=== PATIENT | female | born 1950 | race Caucasian/White ===

== ENCOUNTER 2016-09-09 18:31 | Inpatient (IN) | payer MEDICARE ==
[~2016-09-09] VITALS: Ht 165.1 cm; Wt 136.3 kg
[~2016-09-09 18:31] MED LIST: AMLO10TA4 PO; BUPR75TA6 PO; ESCI10TA PO; GLIM4TAB2 PO; INSU100V13 SQ; LEVO175T5 PO; LOSA100T6 PO; METF500T4 PO; METO25TA4 PO; OXYB5TAB7 PO; PANT40GR PO; SERT100T8 PO; SITA1TAB11 PO; THYR15TA PO; UBID50TA PO; glyburide; janumet; zoloft
[2016-09-09] MEDS ORDERED: IV NORMAL SALINE 1000ML BAG 1,000 ML IV ONE (18:45)
[2016-09-09] MEDS ORDERED: IPRATRPIUM/ALBUTEROL 0.5/2.5MG 3 ML NEBU. NEB ONE ×2 (18:45→20:15)
--- NOTE | 2016-09-09 19:42 | PHYS DOC ---
Past Medical History Past Medical History: Depression, Diabetes-Type II, Heart Disease, Hypertension , Other Additional Past Medical Histor: "thyroid" Past Surgical History: Other Additional Past Surgical Histo: arthrocopic knee, 2 heart caths Alcohol Use: None Drug Use: None Adult General Chief Complaint Chief Complaint: SHORTNESS OF BREATH HPI HPI 66-year-old female presenting to the emergency department today with shortness of breath. Her shortness breath is been present for approximately 48 hours. Location lungs. Duration intermittent. No alleviating factors. No specific timing present. Worse with exertion. Review of systems is negative for fevers or chills. She denies chest pain or abdominal pain nausea or vomiting. All other review of systems is negative unless otherwise noted in history of present illness. Review of Systems Review of Systems SEE ABOVE. Current Medications Current Medications Current Medications Medications (Trade) Dose Ordered Sig/Nader Start Time Stop Time Status Last Admin Dose Admin Albuterol/ Ipratropium (Duoneb) 3 ml 1X ONCE 09/09/16 20:15 09/09/16 20:16 DC Albuterol/ Ipratropium 3 ml 3 ml 1X ONCE 09/09/16 18:45 09/09/16 18:46 DC 09/09/16 18:47 3 ML Aspirin (Children'S Aspirin) 324 mg 1X ONCE 09/09/16 20:15 09/09/16 20:18 DC Sodium Chloride (Iv Sodium Chloride 0.9% 1000ml Bag) 1,000 ml @ 1,000 mls/hr 1X ONCE 09/09/16 18:45 09/09/16 19:44 DC 09/09/16 19:56 1,000 MLS/HR Allergies Allergies Allergies Coded Allergies Type Severity Reaction Last Updated Verified morphine Allergy Intermediate 10/08/14 Yes lovastatin Allergy Unknown 10/14/14 Yes Physical Exam Physical Exam Constitutional: Well developed, well nourished, . Patient is mildly diaphoretic. She is mildly tachypneic. She is not in extremis. HENT: Normocephalic, atraumatic, bilateral external ears normal, oropharynx moist, no oral exudates, nose normal. [] Eyes: PERRLA, EOMI, conjunctiva normal, no discharge. Neck: Normal range of motion, no tenderness, supple, no stridor. [] Cardiovascular:Heart rate regular rhythm, no murmur [] Lungs & Thorax: Tachypneic with mild wheezing bilaterally. Crackles at the bases of the lungs. Abdomen: Bowel sounds normal, soft, no tenderness, no masses, no pulsatile masses. [] Skin: Warm, dry, no erythema, no rash. Back: No tenderness, no CVA tenderness. [] Extremities: No tenderness, no cyanosis, no clubbing, ROM intact, no edema. Neurologic: Alert and oriented X 3, normal motor function, normal sensory function, no focal deficits noted. Psychologic: Affect normal, judgement normal, mood normal. [] Current Patient Data Vital Signs Vital Signs Date Time Temp Pulse Resp B/P Pulse Ox O2 Delivery O2 Flow Rate FiO2 09/09/16 18:49 96 Nasal Cannula 4.0 09/09/16 18:40 99.6 96 40 159/72 99.6 Lab Values Laboratory Tests Test 09/09/16 19:20 White Blood Count 4.0x10^3/uL (4.0-11.0) Red Blood Count 4.58x10^6/uL (3.50-5.40) Hemoglobin 12.8g/dL (12.0-15.5) Hematocrit 39.3% (36.0-47.0) Mean Corpuscular Volume 86fL (79-100) Mean Corpuscular Hemoglobin 28pg (25-35) Mean Corpuscular Hemoglobin Concent 33g/dL (31-37) Red Cell Distribution Width 14.2% (11.5-14.5) Platelet Count 59x10^3/uL (140-400) L Neutrophils (%) (Auto) 92% (31-73) H Lymphocytes (%) (Auto) 4% (24-48) L Monocytes (%) (Auto) 3% (0-9) Eosinophils (%) (Auto) 1% (0-3) Basophils (%) (Auto) 0% (0-3) Neutrophils # (Auto) 3.7x10^3uL (1.8-7.7) Lymphocytes # (Auto) 0.2x10^3/uL (1.0-4.8) L Monocytes # (Auto) 0.1x10^3/uL (0.0-1.1) Eosinophils # (Auto) 0.1x10^3/uL (0.0-0.7) Basophils # (Auto) 0.0x10^3/uL (0.0-0.2) Segmented Neutrophils % 87% (35-66) H Band Neutrophils % 7% (0-9) Lymphocytes % 3% (24-48) L Monocytes % 2% (0-10) Eosinophils % 1% (0-5) Platelet Estimate Decreased (ADEQUATE) Large Platelets Occ Giant Platelets Sodium Level 134mmol/L (136-145) L Potassium Level 4.2mmol/L (3.5-5.1) Chloride Level 98mmol/L (98-107) Carbon Dioxide Level 21mmol/L (21-32) Anion Gap 15 (6-14) H Blood Urea Nitrogen 31mg/dL (7-20) H Creatinine 1.6mg/dL (0.6-1.0) H Estimated GFR (Cockcroft-Gault) 32.2 Glucose Level 354mg/dL (70-99) H Lactic Acid Level 1.9mmol/L (0.4-2.0) Calcium Level 9.3mg/dL (8.5-10.1) Total Bilirubin 0.7mg/dL (0.2-1.0) Direct Bilirubin 0.4mg/dL (0.0-0.2) H Aspartate Amino Transferase (AST) 96U/L (15-37) H Alanine Aminotransferase (ALT) 83U/L (14-59) H Alkaline Phosphatase 105U/L (46-116) Troponin I Quantitative 0.414ng/mL (0.000-0.055) Total Protein 6.5g/dL (6.4-8.2) Albumin 2.7g/dL (3.4-5.0) L Lipase 274U/L (73-393) Laboratory Tests 09/09/16 19:20 Laboratory Tests 09/09/16 19:20 EKG EKG [] Radiology/Procedures Radiology/Procedures [] Course & Med Decision Making Course & Med Decision Making Pertinent Labs and Imaging studies reviewed. (See chart for details) [] 66-year-old female presenting to the emergency department today with shortness of breath. Patient is afebrile with mildly increased heart rate. Tachypneic saturating 95% on 4 L. Patient does not have oxygen at home. IV established. Blood work sent. White blood cell count with lower end of normal. Hemoglobin normal. Chemistry panel shows acute kidney injury along with elevation in proBNP. Troponin positive. EKG does not meet STEMI criteria. Patient does not have chest pain. Lactic acid normal. Patient was given Lasix, duo nebs, and antibiotics in the emergency department along with aspirin and Lovenox. The patient was subsequent admitted to our hospital for further evaluation workup and care. Cardiology consulted. Pulmonology consult. Dragon Disclaimer Dragon Disclaimer This electronic medical record was generated, in whole or in part, using a voice recognition dictation system. Departure Departure Impression: Primary Impression: Shortness of breath Additional Impressions: Hypoxia NSTEMI (non-ST elevated myocardial infarction) Disposition: 09 ADMITTED INPATIENT Admitting Physician: Elizabeth Martell Condition: STABLE Referrals: MEI MOCK MD (PCP) Patient Instructions: Shortness of Breath Problem Qualifiers NADIA ALCANTARA MD Sep 09, 2016 19:42
[2016-09-09 19:47] LABS: BASO % 0 % (0-3); EOS % 1 % (0-3); HEMATOCRIT 39.3 % (36.0-47.0); HEMOGLOBIN 12.8 g/dL (12.0-15.5); LYMPH # 0.2 x10^3/uL (1.0-4.8); LYMPH % 4 % (24-48); MEAN CORPUSCULAR HEMOGLOBIN 28 pg (25-35); MEAN CORPUSCULAR HGB CONC 33 g/dL (31-37); MEAN CORPUSCULAR VOLUME 86 fL (79-100); MONO % 3 % (0-9); NEUT % 92 % (31-73); PLATELET COUNT 59 x10^3/uL (140-400); RED BLOOD COUNT 4.58 x10^6/uL (3.50-5.40); RED CELL DISTRIBUTION WIDTH 14.2 % (11.5-14.5)
[2016-09-09 19:59] LABS: CALCIUM 9.3 mg/dL (8.5-10.1); CREATININE 1.6 mg/dL (0.6-1.0); GFR 32.2; POTASSIUM 4.2 mmol/L (3.5-5.1)
[2016-09-09 20:05] LABS: ALBUMIN 2.7 g/dL (3.4-5.0); DIRECT BILIRUBIN 0.4 mg/dL (0.0-0.2); TOTAL BILIRUBIN 0.7 mg/dL (0.2-1.0); TOTAL PROTEIN 6.5 g/dL (6.4-8.2)
[2016-09-09 20:14] LABS: BILIRUBIN,URINE NEGATIVE (NEG); GLUCOSE,URINE >=1000 mg/dL (NEG); NITRITE,URINE NEGATIVE (NEG); PH,URINE 5.5; PROTEIN,URINE 100 mg/dL (NEG-TRACE)
[2016-09-09] MEDS ORDERED: ASPIRIN 81 MG TAB.CHEW PO ONE (20:15)
[2016-09-09 20:17] LABS: % EOS 1 % (0-5); PLT ESTIMATE DECREASED (ADEQUATE)
[2016-09-09 20:38] LABS: BACTERIA,URINE MODERATE /HPF (0-FEW); WBC,URINE >40 /HPF (0-4)
[2016-09-09 20:39] LABS: SQUAMOUS EPITHELIAL CELL,UR MOD /LPF
[2016-09-09] MEDS ORDERED: PIPERACILLIN/TAZOBACTAM 3.375 GM in IV NORMAL SALINE 50ML 50 ML IV ONE (20:45)
[2016-09-09] MEDS ORDERED: ONDANSETRON PF 4 MG/2 ML VIAL. IV PRN (20:45)
[2016-09-09] MEDS ORDERED: FUROSEMIDE 40 MG/4 ML VIAL IVP ONE (20:45)
--- NOTE | 2016-09-09 20:56 | ACF ---
Admission Forms Criteria MYOCARDIAL INFARCTION Clinical Indications for Admission to Inpatient Care (Place 'X' for any and all applicable criteria): Admission is indicated for ANY ONE of the following (1)(2)(3)(4): [X]I. Acute VT [ ]II. Contraindications and/or Inappropriate clinical situations for Observational Care in patients with Myocardial Infarction, when ANY ONE of the following is required: [ ]a) Patient with High risk of cardiac embolism (e.g, patients with previous cardiac embolism, LVEF < 40%, age >75 and patients with prosthetic valve) 18 [ ]b) Patient with Moderate risk including DM patient, CAD and patient aged 65-75 18 [ ]c) Patient with any change in cardiac biomarker especially troponin should be managed as high risk in an inpatient setting 19 [ ]d) Physician judgement irrespective of ECG and other diagnostic findings 20 [ ]III.General contraindications and/or Inappropriate clinical situations for Observational Care in patients with Myocardial Infarction, when ANY ONE of the following is required: [ ]a) Prediction of prolongation of LOS based on ANY ONE of the following may be considered as a contraindication for observational care 2, 3, 4, 5, 6, 7, 8, 9, 10, 11 [ ]i) Age > 65 yrs. [ ]ii) Patient arriving by ambulance [ ]iii) Patient with high acuity [ ]iv) Patient requiring vital sign monitoring [ ]v) Patient on IV medication [ ]b) Systolic blood pressures 180mmHg 3,12 [ ]c) Patient with altered mental status including delirium and other alteration of consciousness, (3) [ ]d) Patient whose discharge disposition will be to a prison home or rehabilitation home should not be managed in Emergency Department Observation Unit. CMS rule requires 3 days hospital stay before such placement. 3,13 [ ]e) Patient with failure to thrive due to broad array of etiologies 3 ,16,17 [ ]f) Inability to ambulate 3,14 Extended stay beyond goal length of stay may be needed for (1)(18)(20)(24)(25): [ ]a) Hemodynamic instability, persisting symptoms after intensive medical management, or recurring severe, prolonged symptoms [ ]b) Intravascular procedural complications such as acute vessel closure, stent thrombosis, stent malposition, or vessel dissection (26)(27)(28) [ ]c) Extravascular procedural complications such as retroperitoneal hematoma , pericardial effusion, or cardiac tamponade [ ]d) Entry site complications causing bleeding, hematoma or distal ischemia and requiring ongoing monitoring, surgical repair or surgical thrombectomy(29) [ ]e) Dangerous arrhythmia [ ]f) Complicated percutaneous coronary intervention (e.g., unsuccessful percutaneous coronary intervention or percutaneous coronary intervention of non- [place] vessel) [ ]g) Urgent or emergent surgery for complications of VT (e.g., ventricular rupture, valvular insufficiency) [ ]h) Surgical revascularization via coronary artery bypass graft [ ]i) Heart failure (e.g., pulmonary edema) [ ]j) Unstable pulmonary comorbidities, including COPD or pneumonia (31) [ ]k) Acute renal failure The original [employer] content created by [employer] has been revised. The portions of the content which have been revised are identified through the use of italic text or in bold, and [facility] [employer] has neither reviewed nor approved the modified material. All other unmodified content is copyright [facility] [employer] Please see references footnoted in the original [facility] edition 2016 Admission Criteria Met?: Yes FIONA CROCKER Sep 09, 2016 20:55
[2016-09-09] MEDS: ENOXAPARIN ** NOTE DOSE ** SYRINGE SQ SCH (21:00)
[2016-09-09 22:30] VITALS: BP 95/61
[2016-09-09] MEDS ORDERED: METO100T11 (23:17)
[2016-09-09] MEDS ORDERED: ASPI325T4 (23:17)
[2016-09-09] MEDS ORDERED: INSU300I (23:17)
[2016-09-09] MEDS ORDERED: ROSUVASTATIN CA20 MG (23:17)
[2016-09-09] MEDS ORDERED: MAGN400T22 (23:17)
[2016-09-09] MEDS ORDERED: LOSA1TAB18 (23:17)
[2016-09-09] MEDS ORDERED: OMEP40CA5 (23:17)
[2016-09-09] MEDS ORDERED: INSU100I17 (23:17)
[2016-09-09] MEDS ORDERED: LEVO125T5 (23:17)
[2016-09-10] VITALS (9 sets, daily range): BP systolic 91–135; BP diastolic 45–62
[2016-09-10 05:57] LABS: BASO % 0 % (0-3); EOS % 1 % (0-3); HEMATOCRIT 38.1 % (36.0-47.0); HEMOGLOBIN 12.6 g/dL (12.0-15.5); LYMPH # 0.4 x10^3/uL (1.0-4.8); LYMPH % 7 % (24-48); MEAN CORPUSCULAR HEMOGLOBIN 28 pg (25-35); MEAN CORPUSCULAR HGB CONC 33 g/dL (31-37); MEAN CORPUSCULAR VOLUME 85 fL (79-100); MONO % 7 % (0-9); NEUT % 86 % (31-73); PLATELET COUNT 56 x10^3/uL (140-400); RED BLOOD COUNT 4.48 x10^6/uL (3.50-5.40); RED CELL DISTRIBUTION WIDTH 14.3 % (11.5-14.5); WHITE BLOOD COUNT 5.3 x10^3/uL (4.0-11.0)
[2016-09-10 06:08] LABS: CREATININE 1.7 mg/dL (0.6-1.0); GFR 30.1; POTASSIUM 4.2 mmol/L (3.5-5.1)
[2016-09-10] MEDS: ACETAMINOPHEN 325 MG TABLET. PO PRN ×2 (07:24→21:33)
[2016-09-10] MEDS: IPRATRPIUM/ALBUTEROL 0.5/2.5MG 3 ML NEBU. NEB SCH ×4 (07:36→19:47)
--- NOTE | 2016-09-10 08:28 | RAD ---
Exam performed: One view chest. Indication: short of breath Date of Service: 09/09/2016 8:38 PM Comparison: 08/26/13. Single AP upright portable view chest findings: Cardiomediastinal silhouette is mildly enlarged, however stable. No acute infiltrates, effusion or pneumothorax is detected. The bony structures are normal. Impression: No acute cardiopulmonary process is detected.
[2016-09-10] MEDS: ENOXAPARIN ** NOTE DOSE ** SYRINGE SQ SCH ×2 (09:00→21:00)
--- NOTE | 2016-09-10 10:27 | PDOC ---
Provider Note Provider Note DYSPNEA DUE TO FEBRILE ILLNESS NORMAL cxr/ V/Q antibiotic ID consult r/o influenza DILLON BOOKER MD Sep 10, 2016 10:27
--- NOTE | 2016-09-10 10:48 | EKG ---
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
--- NOTE | 2016-09-10 10:59 | CONS ---
DATE OF CONSULTATION: ATTENDING PHYSICIAN: Dr. Martell. REASON FOR CONSULTATION: Dyspnea. HISTORY OF PRESENT ILLNESS: The patient is a 66-year-old female, who has history of depression, type 2 diabetes, morbid obesity with a BMI of 48.9. She presented to [facility] with complaint of shortness of breath. She had no cough. The patient states she had history of aortic aneurysm. She states her face was blue. She was placed on oxygen via nasal cannula. Currently, she is requiring 3 liters of oxygen. The patient has some shivering as well, but no reported fever. She has a history of KARENA, for which she is on CPAP. At [facility], a VQ scan was done, which was normal. Chest x-ray was also done which showed no significant CHF. Echocardiogram done yesterday, showed PA pressure of 48, an EF of 55%-60%. I have been asked to see her for further evaluation. She states she does feel better. PAST MEDICAL HISTORY: Significant for history of depression; diabetes; morbid obesity; severe KARENA on CPAP; history of heart disease, details known; history of hypertension and thyroid disease. PAST SURGICAL HISTORY: ____ and previous cardiac catheterization. ALLERGIES: LOVASTATIN AND MORPHINE. MEDICATIONS: Reviewed as listed in the MRAD including DuoNeb and full dose Lovenox. REVIEW OF SYSTEMS: Twelve-point system obtained, pertinent positives discussed in my history of present illness, otherwise noncontributory. All systems that were negative were reviewed as well. SOCIAL HISTORY: Denies any history of tobacco use. PHYSICAL EXAMINATION: GENERAL: She is awake, following commands. VITAL SIGNS: Pulse ox is 97% on 4 liters. She had a T-max of 99.8 and 99.61 was yesterday. HEENT: Sclerae nonicteric. NECK: Supple. LUNGS: Diminished breath sounds. No crackles, no wheezing. CARDIOVASCULAR: Regular. ABDOMEN: Soft, obese. EXTREMITIES: With no pitting edema. LABORATORY DATA: Reviewed. BUN 32, creatinine 1.1. Troponin 0.41. White cell count 5.3, hemoglobin 12.6 and platelets are 56. IMPRESSION: 1. Acute hypoxic respiratory failure, etiology is not so obvious. She has a clear chest x-ray. Echocardiogram with normal ejection fraction. V/Q scan is normal. She does have a fever and thrombocytopenia. I suspect that she may have a viral infection. Needs to rule out any bacteremia. 2. Fever with no obvious source in the lungs. Would recommend ID consult. 3. Acute kidney injury. Could be related dehydration. Lactic acid is normal. 4. Mildly increased troponin level. 5. No significant history of tobacco use. 6. History of obstructive sleep apnea on home CPAP. 7. No evidence of pulmonary embolism by V/Q scan. RECOMMENDATIONS: 1. From a pulmonary standpoint, she does not need full anticoagulation unless Cardiology recommends to continue. (thrombocytopenia) 2. The patient has previous history of stents. I would recommend Cardiology followup and recommendation. 3. Continue with empiric antibiotic. She was initiated on Zosyn. 4. Follow cultures. 5. Consider Infectious Disease consult. 6. Bronchodilators to continue. 7. Home CPAP. 8. Rule out influenza. 9. We will follow along with you. DILLON BOOKER MD DR: YOLI/crys JOB#: [id number] / [id number] TONY
--- NOTE | 2016-09-10 11:12 | EKG ---
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
--- NOTE | 2016-09-10 11:33 | PDOC2 ---
CARDIOLOGY CONSULT NOTE CHEIF COMPLAINT: Shortness of breath Problems: (1) Shortness of breath (2) Hypoxic HPI: 66 yo obese female reports sudden onset of SOB. She also reports left calf pain that is now resolved. Patient was hospitalized at [facility] and underwent a V/Q scan that was normal, and echo showing normal EF and valvular function, and only stage I diastolic dysfunction (filling pressures not commented on). Interestingly, her PA pressures were elevated into the 50's, and in March of last year they had been normal (presumed < 20 mmHg as there was no measurable TR). The patient presented to [facility] relatively tachycardic in the low 100's, hypoxic requiring O2. She also has acute renal dysfunction, thrombocytopenia and mild transaminitis. PMHX: Obesity, DM, KARENA, normal coronaries x 2 caths per patient SOCHX: Never smoker CURRENT MEDS: Current Medications Medications (Trade) Dose Ordered Sig/Nader Start Time Stop Time Status Last Admin Dose Admin Acetaminophen (Tylenol) 650 mg PRN Q6HRS PRN 09/10/16 06:15 09/10/16 07:24 650 MG Albuterol/ Ipratropium (Duoneb) 3 ml RTQID 09/10/16 08:00 09/11/16 07:59 Albuterol/ Ipratropium 3 ml 3 ml 1X ONCE 09/09/16 18:45 09/09/16 18:46 DC 09/09/16 18:47 3 ML Aspirin 324 mg 324 mg 1X ONCE 09/09/16 20:15 09/09/16 20:18 DC 09/09/16 20:57 324 MG Enoxaparin Sodium (Lovenox 150mg Syringe) 130 mg Q12HR 09/09/16 21:00 Enoxaparin Sodium (Lovenox Per Pharmacy Treatment Dosing) 1 each PRN DAILY PRN 09/09/16 20:45 Furosemide (Lasix) 40 mg 1X ONCE 09/09/16 20:45 09/09/16 20:46 DC 09/09/16 20:58 40 MG Ondansetron HCl (Zofran) 4 mg PRN Q8HRS PRN 09/09/16 20:45 09/10/16 20:44 Piperacillin Sod/ Tazobactam Sod/ Sodium Chloride (Zosyn/Iv Sodium Chloride 0.9% 50ml) 50 ml @ 100 mls/hr 1X ONCE 09/09/16 20:45 09/09/16 21:14 DC 09/09/16 20:57 100 MLS/HR Sodium Chloride (Iv Sodium Chloride 0.9% 1000ml Bag) 1,000 ml @ 1,000 mls/hr 1X ONCE 09/09/16 18:45 09/09/16 19:44 DC 09/09/16 19:56 1,000 MLS/HR ALLERGIES: Allergies Coded Allergies Type Severity Reaction Last Updated Verified morphine Allergy Intermediate 10/08/14 Yes lovastatin Allergy Unknown 10/14/14 Yes PHYSICAL EXAM: Vital Signs: Vital Signs Date Time Temp Pulse Resp B/P Pulse Ox O2 Delivery O2 Flow Rate FiO2 09/10/16 11:11 97.6 70 22 111/56 98 Nasal Cannula 4.0 97.6 I & O Intake and Output 09/10/16 07:00 Intake Total 1400 ml Balance 1400 ml Intake Oral 350 ml IV Total 1050 ml # Voids 1 # Bowel Movements 1 DIAGNOSTIC TESTING: Lab Laboratory Tests Test 09/09/16 19:20 09/09/16 20:00 09/10/16 05:00 White Blood Count 4.0x10^3/uL (4.0-11.0) 5.3x10^3/uL (4.0-11.0) Red Blood Count 4.58x10^6/uL (3.50-5.40) 4.48x10^6/uL (3.50-5.40) Hemoglobin 12.8g/dL (12.0-15.5) 12.6g/dL (12.0-15.5) Hematocrit 39.3% (36.0-47.0) 38.1% (36.0-47.0) Mean Corpuscular Volume 86fL (79-100) 85fL (79-100) Mean Corpuscular Hemoglobin 28pg (25-35) 28pg (25-35) Mean Corpuscular Hemoglobin Concent 33g/dL (31-37) 33g/dL (31-37) Red Cell Distribution Width 14.2% (11.5-14.5) 14.3% (11.5-14.5) Platelet Count 59x10^3/uL (140-400) L 56x10^3/uL (140-400) L Neutrophils (%) (Auto) 92% (31-73) H 86% (31-73) H Lymphocytes (%) (Auto) 4% (24-48) L 7% (24-48) L Monocytes (%) (Auto) 3% (0-9) 7% (0-9) Eosinophils (%) (Auto) 1% (0-3) 1% (0-3) Basophils (%) (Auto) 0% (0-3) 0% (0-3) Neutrophils # (Auto) 3.7x10^3uL (1.8-7.7) 4.6x10^3uL (1.8-7.7) Lymphocytes # (Auto) 0.2x10^3/uL (1.0-4.8) L 0.4x10^3/uL (1.0-4.8) L Monocytes # (Auto) 0.1x10^3/uL (0.0-1.1) 0.4x10^3/uL (0.0-1.1) Eosinophils # (Auto) 0.1x10^3/uL (0.0-0.7) 0.0x10^3/uL (0.0-0.7) Basophils # (Auto) 0.0x10^3/uL (0.0-0.2) 0.0x10^3/uL (0.0-0.2) Segmented Neutrophils % 87% (35-66) H Band Neutrophils % 7% (0-9) Lymphocytes % 3% (24-48) L Monocytes % 2% (0-10) Eosinophils % 1% (0-5) Platelet Estimate Decreased (ADEQUATE) Large Platelets Occ Giant Platelets Sodium Level 134mmol/L (136-145) L 136mmol/L (136-145) Potassium Level 4.2mmol/L (3.5-5.1) 4.2mmol/L (3.5-5.1) Chloride Level 98mmol/L (98-107) 99mmol/L (98-107) Carbon Dioxide Level 21mmol/L (21-32) 25mmol/L (21-32) Anion Gap 15 (6-14) H 12 (6-14) Blood Urea Nitrogen 31mg/dL (7-20) H 32mg/dL (7-20) H Creatinine 1.6mg/dL (0.6-1.0) H 1.7mg/dL (0.6-1.0) H Estimated GFR (Cockcroft-Gault) 32.2 30.1 Glucose Level 354mg/dL (70-99) H 338mg/dL (70-99) H Lactic Acid Level 1.9mmol/L (0.4-2.0) Calcium Level 9.3mg/dL (8.5-10.1) 9.0mg/dL (8.5-10.1) Total Bilirubin 0.7mg/dL (0.2-1.0) Direct Bilirubin 0.4mg/dL (0.0-0.2) H Aspartate Amino Transf (AST/SGOT) 96U/L (15-37) H Alkaline Phosphatase 105U/L (46-116) Total Protein 6.5g/dL (6.4-8.2) Albumin 2.7g/dL (3.4-5.0) L Lipase 274U/L (73-393) Urine Collection Type Unknown Urine Color Yellow Urine Clarity Cloudy Urine pH 5.5 Urine Specific [place] >=1.030 Urine Protein 100mg/dL (NEG-TRACE) Urine Glucose (UA) >=1000mg/dL (NEG) Urine Ketones (Stick) 15mg/dL (NEG) Urine Blood Large (NEG) Urine Nitrite Negative (NEG) Urine Bilirubin Negative (NEG) Urine Urobilinogen Dipstick 1.0mg/dL (0.2 mg/dL) Urine Leukocyte Esterase Small (NEG) Urine RBC 1-2/HPF (0-2) Urine WBC >40/HPF (0-4) Urine Squamous Epithelial Cells Mod/LPF Urine Bacteria Moderate/HPF (0-FEW) ASSESSMENT: 1) Hypoxia, tachycardia, newly elevated PA pressures, elevated troponin, elevated BNP 2) Acute kidney injury--possibly pre-renal 3) Mild transaminase elevation with otherwise normal liver synthetic function 4) Thrombocytopenia PLAN: 1) Certainly the constellation in #1 is c/w PE, however, her V/Q was interpreted as normal. I am still suspicious of a PE, so will do LE venous dopplers. Even if negative, I would not abandon PE as a possible etiology. If her renal function improves, would consider CTPE protocol. I would not anticoagulate unless PE is confirmed due to her thrombocytopenia. 2) Agree with pulmonary that a viral process is high in the differential. 3) Despite her elevated BNP, I think the patient needs intravascular volume repletion, and recommend NS at 100 an hour until improvement is seen in the BUN/ Cr. Also encourage PO intake. 4) The elevated troponin is not due to plaque rupture, but rather to hypoxia and tachycardia. If a PE is confirmed this would also explain the Troponin due to RV strain. Anticoagulation and DAPT for a primary cardiac issue are not indicated at this time. 5) Input from Hematology regarding her thrombocytopenia would be appreciated. Possibly due to chronic liver disease vs an acute viral process. Total time face to face and more than half counseling and coordinating care on the unit is 65 minutes. ROS Cardiology Respiratory: shortness of breath improving Cardiovascular: No additional information not addressed in HPI [] Vital Signs Vital Signs Date Time Temp Pulse Resp B/P Pulse Ox O2 Delivery O2 Flow Rate FiO2 09/10/16 11:11 97.6 70 22 111/56 98 Nasal Cannula 4.0 97.6 General Appearance: Alert, Oriented X3, Cooperative Respiratory: Clear to auscultation Heart: No murmurs Extremities: No edema, Other (Left calf warm to touch, no erythema, no Luisa's/ Bobby) YON THOMPSON DO Sep 10, 2016 11:33
[2016-09-10] MEDS ORDERED: LEVO200T5 PO (11:38)
[2016-09-10] MEDS ORDERED: ASPI-482 PO (11:38)
[2016-09-10] MEDS ORDERED: MAGN400T3 PO (11:38)
[2016-09-10] MEDS ORDERED: INSU200I SQ (11:43)
[2016-09-10] MEDS ORDERED: INSU300I SQ (11:43)
[2016-09-10] MEDS ORDERED: METF10002 PO (11:43)
[2016-09-10] MEDS ORDERED: BUPR100T8 PO (11:45)
--- NOTE | 2016-09-10 11:45 | PDOC1 ---
History and Physical Date of Admission Date of Admission DATE: 09/10/16 TIME: 11:44 Identification/Chief Complaint Chief Complaint shortness of breath Source Source: Chart review, Patient History of Present Illness History of Present Illness Ms. Lucas is a 66 yo obese female admitted for sudden onset of SOB. She was seen in [facility] the day before and had dyspnea, was DC after garcia includign VQ scan neg. LEg pain yesterday, Left calf, no pain today she is able to lie supine without dyspnea, and has no new LE edema Recent echo showing normal EF and valvular function, and only stage I diastolic dysfunction Past Medical History Cardiovascular: HTN, Hyperlipidemia Pulmonary: No pertinent hx, Other CENTRAL NERVOUS SYSTEM: Migraine GI: GERD Heme/Onc: No pertinent hx Hepatobiliary: Other Psych: No pertinent hx Musculoskeletal: Osteoarthritis Rheumatologic: No pertinent hx Infectious disease: No pertinent hx Renal/: No pertinent hx, Other Endocrine: Diabetes, Hypothyroidism Past Surgical History Past Surgical History: Cholecystectomy Family History Family History: Alcohol Abuse Social History Smoke: No ALCOHOL: none Drugs: None Current Problem List Problem List Problems Medical Problems: (1) Hypoxia Status: Acute (2) Hypoxic Status: Acute (3) NSTEMI (non-ST elevated myocardial infarction) Status: Acute (4) Shortness of breath Status: Acute Problems: Current Medications Current Medications Current Medications Albuterol/ Ipratropium 3 ml 3 ml 1X ONCE NEB Last administered on 09/09/16 18 :47; Start 09/09/16 at 18:45; Stop 09/09/16 at 18:46; Status DC Sodium Chloride (Iv Sodium Chloride 0.9% 1000ml Bag) 1,000 ml @ 1,000 mls/hr 1X ONCE IV Last administered on 09/09/16 19:56; Start 09/09/16 at 18:45; Stop 09/09/16 at 19:44; Status DC Albuterol/ Ipratropium (Duoneb) 3 ml 1X ONCE NEB Last administered on 21:21; Start 09/09/16 at 20:15; Stop 09/09/16 at 20:16; Status DC Aspirin 324 mg 324 mg 1X ONCE PO Last administered on 09/09/16 20:57; Start 09/09/16 at 20:15; Stop 09/09/16 at 20:18; Status DC Piperacillin Sod/ Tazobactam Sod/ Sodium Chloride (Zosyn/Iv Sodium Chloride 0.9 % 50ml) 50 ml @ 100 mls/hr 1X ONCE IV Last administered on 09/09/16 20:57; Start 09/09/16 at 20:45; Stop 09/09/16 at 21:14; Status DC Furosemide (Lasix) 40 mg 1X ONCE IVP Last administered on 09/09/16 20:58; Start 09/09/16 at 20:45; Stop 09/09/16 at 20:46; Status DC Enoxaparin Sodium (Lovenox Per Pharmacy Treatment Dosing) 1 each PRN DAILY PRN MC SEE COMMENTS; Start 09/09/16 at 20:45 Enoxaparin Sodium (Lovenox 150mg Syringe) 130 mg Q12HR SQ ; Start 09/09/16 at 21 :00 Ondansetron HCl (Zofran) 4 mg PRN Q8HRS PRN IV NAUSEA/VOMITING; Start 09/09/16 at 20:45; Stop 09/10/16 at 20:44 Albuterol/ Ipratropium (Duoneb) 3 ml RTQID NEB ; Start 09/10/16 at 08:00; Stop 09/11/16 at 07:59 Acetaminophen (Tylenol) 650 mg PRN Q6HRS PRN PO MILD PAIN / TEMP Last administered on 09/10/16 07:24; Start 09/10/16 at 06:15 Active Scripts Active Reported Humalog Kwikpen (Insulin Lispro) 200 Unit/1 Ml Insuln.pen 20 Unit SQ TIDWMEALS Toujeo Solostar (Insulin Glargine,Hum.rec.anlog) 300 Unit/1 Ml Insuln.pen 38 Unit SQ HS PRN Metformin Hcl 1,000 Mg Tablet 1 Tab PO BID Levothyroxine Sodium 200 Mcg Tablet 250 Mcg PO DAILYAC Magnesium Oxide 400 Mg Tablet 1 Tab PO BID Aspir 81 (Aspirin) 81 Mg Tablet. 1 Tab PO DAILY Losartan-Hctz 100-12.5 Mg Tab (Losartan/Hydrochlorothiazide) 1 Each Tablet Rosuvastatin Calcium 20 Mg Tablet 20 Mg Metoprolol Succinate ( Xl ) (Metoprolol Succinate) 100 Mg Tab.er.24h 100 Mg Omeprazole 40 Mg Capsule. 40 Mg Bupropion Hcl 75 Mg Tablet 75 Mg PO Escitalopram Oxalate 10 Mg Tablet 20 Mg PO Norvasc (Amlodipine Besylate) 10 Mg Tablet 10 Mg PO DAILY07 Allergies Allergies: Coded Allergies: morphine (Verified Allergy, Intermediate, 10/08/14) lovastatin (Verified Allergy, Unknown, 10/14/14) CAUSES MUSCLE SPASMS ROS General: YES: Fatigue, No: Appetite, Chills, Malaise, Night Sweats, Other PSYCHOLOGICAL ROS: No: Anxiety, Behavioral Disorder, Concentration difficultie , Decreased libido, Depression, Disorientation, Hallucinations, Hostility, Irritablity, Memory difficulties, Mood Swings, Obsessive thoughts, Other, Physical abuse, Sexual abuse, Sleep disturbances, Suicidal ideation Eyes: No Blurry vision, No Decreased vision, No Double vision, No Dry eyes, No Excessive tearing, No Eye Pain, No Itchy Eyes, No Loss of vision, No Other, No Photophobia, No Scotomata, No Uses contacts, No Uses glasses Respiratory: YES: SOB with excertion, Shortness of breath, Tachypnea, No: Cough, Hemoptysis, Orthopnea, Other, Pleuritic Pain, Sputum Changes, Stridor, Wheezing Cardiovascular: No Chest Pain, No Edema, No Lt Headedness, No Orthopnea, No Other, No Palpitations, No Paroxysmal Noc. Dyspnea Gastrointestinal: Yes Nausea, No Abdominal Pain, No Constipation, No Diarrhea, No Hematochezia, No Melena, No Other, No Vomiting Musculoskeletal: Yes Joint Pain, Yes Joint Stiffness, No Gait Disturbance, No Joint Swelling, No Muscle Pain, No Muscular Weakness , No Other, No Pain In:, No Swelling In: Neurological: No Behavorial Changes, No Bowel/Bladder ControlChng, No Confusion , No Dizziness, No Gait Disturbance, No Headaches, No Impaired Coord/balance, No Memory Loss, No Numbness/Tingling, No Other, No Seizures, No Speech Problems , No Tremors, No Visual Changes, No Weakness Skin: No Acne, No Dry Skin, No Eczema, No Hair Changes, No Lumps, No Mole Changes, No Mottling, No Nail Changes, No Other, No Pruritus, No Rash, No Skin Lesion Changes Physical Exam General: Alert, Cooperative, mild distress HEENT: PERRLA Lungs: Clear to auscultation Heart: RRR, no murmurs Abdomen: Normal bowel sounds, Soft (obese, ) Extremities: No clubbing, Other (tr edmea, right knee TTP) Skin: No breakdown, No significant lesion, Other (no petechiae) Neuro: Normal speech, Sensation intact Psych/Mental Status: Mood NL Vitals Vitals Vital Signs Date Time Temp Pulse Resp B/P Pulse Ox O2 Delivery O2 Flow Rate FiO2 09/10/16 11:11 97.6 70 22 111/56 98 Nasal Cannula 4.0 97.6 Labs Labs Laboratory Tests Test 09/09/16 19:20 09/09/16 20:00 09/10/16 03:00 09/10/16 05:00 White Blood Count 4.0x10^3/uL (4.0-11.0) 5.3x10^3/uL (4.0-11.0) Red Blood Count 4.58x10^6/uL (3.50-5.40) 4.48x10^6/uL (3.50-5.40) Hemoglobin 12.8g/dL (12.0-15.5) 12.6g/dL (12.0-15.5) Hematocrit 39.3% (36.0-47.0) 38.1% (36.0-47.0) Mean Corpuscular Volume 86fL (79-100) 85fL (79-100) Mean Corpuscular Hemoglobin 28pg (25-35) 28pg (25-35) Mean Corpuscular Hemoglobin Concent 33g/dL (31-37) 33g/dL (31-37) Red Cell Distribution Width 14.2% (11.5-14.5) 14.3% (11.5-14.5) Platelet Count 59x10^3/uL (140-400) 56x10^3/uL (140-400) Neutrophils (%) (Auto) 92% (31-73) 86% (31-73) Lymphocytes (%) (Auto) 4% (24-48) 7% (24-48) Monocytes (%) (Auto) 3% (0-9) 7% (0-9) Eosinophils (%) (Auto) 1% (0-3) 1% (0-3) Basophils (%) (Auto) 0% (0-3) 0% (0-3) Neutrophils # (Auto) 3.7x10^3uL (1.8-7.7) 4.6x10^3uL (1.8-7.7) Lymphocytes # (Auto) 0.2x10^3/uL (1.0-4.8) 0.4x10^3/uL (1.0-4.8) Monocytes # (Auto) 0.1x10^3/uL (0.0-1.1) 0.4x10^3/uL (0.0-1.1) Eosinophils # (Auto) 0.1x10^3/uL (0.0-0.7) 0.0x10^3/uL (0.0-0.7) Basophils # (Auto) 0.0x10^3/uL (0.0-0.2) 0.0x10^3/uL (0.0-0.2) Segmented Neutrophils % 87% (35-66) Band Neutrophils % 7% (0-9) Lymphocytes % 3% (24-48) Monocytes % 2% (0-10) Eosinophils % 1% (0-5) Platelet Estimate Decreased (ADEQUATE) Large Platelets Occ Giant Platelets Sodium Level 134mmol/L (136-145) 136mmol/L (136-145) Potassium Level 4.2mmol/L (3.5-5.1) 4.2mmol/L (3.5-5.1) Chloride Level 98mmol/L (98-107) 99mmol/L (98-107) Carbon Dioxide Level 21mmol/L (21-32) 25mmol/L (21-32) Anion Gap 15 (6-14) 12 (6-14) Blood Urea Nitrogen 31mg/dL (7-20) 32mg/dL (7-20) Creatinine 1.6mg/dL (0.6-1.0) 1.7mg/dL (0.6-1.0) Estimated GFR (Cockcroft-Gault) 32.2 30.1 Glucose Level 354mg/dL (70-99) 338mg/dL (70-99) Lactic Acid Level 1.9mmol/L (0.4-2.0) Calcium Level 9.3mg/dL (8.5-10.1) 9.0mg/dL (8.5-10.1) Total Bilirubin 0.7mg/dL (0.2-1.0) Direct Bilirubin 0.4mg/dL (0.0-0.2) Aspartate Amino Transf (AST/SGOT) 96U/L (15-37) Alanine Aminotransferase (ALT/SGPT) 83U/L (14-59) Alkaline Phosphatase 105U/L (46-116) Troponin I Quantitative 0.414ng/mL (0.000-0.055) 0.262ng/mL (0.000-0.055) YR-Pqh-H-Type Natriuretic Peptide 2638pg/mL (0-124) Total Protein 6.5g/dL (6.4-8.2) Albumin 2.7g/dL (3.4-5.0) Lipase 274U/L (73-393) Urine Collection Type Unknown Urine Color Yellow Urine Clarity Cloudy Urine pH 5.5 Urine Specific [place] >=1.030 Urine Protein 100mg/dL (NEG-TRACE) Urine Glucose (UA) >=1000mg/dL (NEG) Urine Ketones (Stick) 15mg/dL (NEG) Urine Blood Large (NEG) Urine Nitrite Negative (NEG) Urine Bilirubin Negative (NEG) Urine Urobilinogen Dipstick 1.0mg/dL (0.2 mg/dL) Urine Leukocyte Esterase Small (NEG) Urine RBC 1-2/HPF (0-2) Urine WBC >40/HPF (0-4) Urine Squamous Epithelial Cells Mod/LPF Urine Bacteria Moderate/HPF (0-FEW) Test 09/10/16 08:20 09/10/16 11:14 Troponin I Quantitative 0.205ng/mL (0.000-0.055) Glucose (Fingerstick) 295mg/dL (70-99) Laboratory Tests Test 09/09/16 19:20 09/09/16 20:00 09/10/16 03:00 09/10/16 05:00 White Blood Count 4.0x10^3/uL (4.0-11.0) 5.3x10^3/uL (4.0-11.0) Red Blood Count 4.58x10^6/uL (3.50-5.40) 4.48x10^6/uL (3.50-5.40) Hemoglobin 12.8g/dL (12.0-15.5) 12.6g/dL (12.0-15.5) Hematocrit 39.3% (36.0-47.0) 38.1% (36.0-47.0) Mean Corpuscular Volume 86fL (79-100) 85fL (79-100) Mean Corpuscular Hemoglobin 28pg (25-35) 28pg (25-35) Mean Corpuscular Hemoglobin Concent 33g/dL (31-37) 33g/dL (31-37) Red Cell Distribution Width 14.2% (11.5-14.5) 14.3% (11.5-14.5) Platelet Count 59x10^3/uL (140-400) 56x10^3/uL (140-400) Neutrophils (%) (Auto) 92% (31-73) 86% (31-73) Lymphocytes (%) (Auto) 4% (24-48) 7% (24-48) Monocytes (%) (Auto) 3% (0-9) 7% (0-9) Eosinophils (%) (Auto) 1% (0-3) 1% (0-3) Basophils (%) (Auto) 0% (0-3) 0% (0-3) Neutrophils # (Auto) 3.7x10^3uL (1.8-7.7) 4.6x10^3uL (1.8-7.7) Lymphocytes # (Auto) 0.2x10^3/uL (1.0-4.8) 0.4x10^3/uL (1.0-4.8) Monocytes # (Auto) 0.1x10^3/uL (0.0-1.1) 0.4x10^3/uL (0.0-1.1) Eosinophils # (Auto) 0.1x10^3/uL (0.0-0.7) 0.0x10^3/uL (0.0-0.7) Basophils # (Auto) 0.0x10^3/uL (0.0-0.2) 0.0x10^3/uL (0.0-0.2) Segmented Neutrophils % 87% (35-66) Band Neutrophils % 7% (0-9) Lymphocytes % 3% (24-48) Monocytes % 2% (0-10) Eosinophils % 1% (0-5) Platelet Estimate Decreased (ADEQUATE) Large Platelets Occ Giant Platelets Sodium Level 134mmol/L (136-145) 136mmol/L (136-145) Potassium Level 4.2mmol/L (3.5-5.1) 4.2mmol/L (3.5-5.1) Chloride Level 98mmol/L (98-107) 99mmol/L (98-107) Carbon Dioxide Level 21mmol/L (21-32) 25mmol/L (21-32) Anion Gap 15 (6-14) 12 (6-14) Blood Urea Nitrogen 31mg/dL (7-20) 32mg/dL (7-20) Creatinine 1.6mg/dL (0.6-1.0) 1.7mg/dL (0.6-1.0) Estimated GFR (Cockcroft-Gault) 32.2 30.1 Glucose Level 354mg/dL (70-99) 338mg/dL (70-99) Lactic Acid Level 1.9mmol/L (0.4-2.0) Calcium Level 9.3mg/dL (8.5-10.1) 9.0mg/dL (8.5-10.1) Total Bilirubin 0.7mg/dL (0.2-1.0) Direct Bilirubin 0.4mg/dL (0.0-0.2) Aspartate Amino Transf (AST/SGOT) 96U/L (15-37) Alanine Aminotransferase (ALT/SGPT) 83U/L (14-59) Alkaline Phosphatase 105U/L (46-116) Troponin I Quantitative 0.414ng/mL (0.000-0.055) 0.262ng/mL (0.000-0.055) WK-Qdx-J-Type Natriuretic Peptide 2638pg/mL (0-124) Total Protein 6.5g/dL (6.4-8.2) Albumin 2.7g/dL (3.4-5.0) Lipase 274U/L (73-393) Urine Collection Type Unknown Urine Color Yellow Urine Clarity Cloudy Urine pH 5.5 Urine Specific [place] >=1.030 Urine Protein 100mg/dL (NEG-TRACE) Urine Glucose (UA) >=1000mg/dL (NEG) Urine Ketones (Stick) 15mg/dL (NEG) Urine Blood Large (NEG) Urine Nitrite Negative (NEG) Urine Bilirubin Negative (NEG) Urine Urobilinogen Dipstick 1.0mg/dL (0.2 mg/dL) Urine Leukocyte Esterase Small (NEG) Urine RBC 1-2/HPF (0-2) Urine WBC >40/HPF (0-4) Urine Squamous Epithelial Cells Mod/LPF Urine Bacteria Moderate/HPF (0-FEW) Test 09/10/16 08:20 09/10/16 11:14 Troponin I Quantitative 0.205ng/mL (0.000-0.055) Glucose (Fingerstick) 295mg/dL (70-99) VTE Prophylaxis Ordered VTE Prophylaxis Devices: No VTE Pharmacological Prophylaxi: Yes Assessment/Plan Assessment/Plan Acute hypoxic respiratoyr falure r/o ACS started, CAD hx DM2, poor control morbid obesity, BMI 49 CHF chronic diastolic r/o PE, leg pain yesterday, recent VQ neg, CV and PULM consults consider KARENA with secondary Pulm HTn or hypoventilation of obesity CKD 3-4, consutl renal thrombocytopenia, Heme consult admit GAUTAM HEATH MD Sep 10, 2016 11:45
[2016-09-10] MEDS: IV NORMAL SALINE 1000ML BAG 1,000 ML IV SCH (12:30)
[2016-09-10 12:40] LABS: OBC FLU VALID
--- NOTE | 2016-09-10 13:09 | RAD ---
Exam performed: Bilateral lower extremity venous Doppler. Clinical Indication: Tachycardia Date of Service:09/10/16. Comparison : None available Discussion: Multiple longitudinal and transverse high resolution real-time images of the venous system of bilateral lower extremity were obtained with color and Doppler sampling and spectral analysis. The common femoral, superficial femoral, popliteal and proximal calf veins are all patent and demonstrate normal flow and compressibility. Normal respiratory phasicity and augmentation is present. Impression: Normal color duplex ultrasound of the venous system of bilateral lower extremity.
--- NOTE | 2016-09-10 13:18 | PDOC ---
"Infectious Disease Note ROS ROS Vital Sign Vital Signs Vital Signs Date Time Temp Pulse Resp B/P Pulse Ox O2 Delivery O2 Flow Rate FiO2 09/10/16 11:11 97.6 70 22 111/56 98 Nasal Cannula 4.0 97.6 Labs Lab Laboratory Tests Test 09/09/16 19:20 09/09/16 20:00 09/10/16 03:00 09/10/16 05:00 White Blood Count 4.0x10^3/uL (4.0-11.0) 5.3x10^3/uL (4.0-11.0) Red Blood Count 4.58x10^6/uL (3.50-5.40) 4.48x10^6/uL (3.50-5.40) Hemoglobin 12.8g/dL (12.0-15.5) 12.6g/dL (12.0-15.5) Hematocrit 39.3% (36.0-47.0) 38.1% (36.0-47.0) Mean Corpuscular Volume 86fL (79-100) 85fL (79-100) Mean Corpuscular Hemoglobin 28pg (25-35) 28pg (25-35) Mean Corpuscular Hemoglobin Concent 33g/dL (31-37) 33g/dL (31-37) Red Cell Distribution Width 14.2% (11.5-14.5) 14.3% (11.5-14.5) Platelet Count 59x10^3/uL (140-400) 56x10^3/uL (140-400) Neutrophils (%) (Auto) 92% (31-73) 86% (31-73) Lymphocytes (%) (Auto) 4% (24-48) 7% (24-48) Monocytes (%) (Auto) 3% (0-9) 7% (0-9) Eosinophils (%) (Auto) 1% (0-3) 1% (0-3) Basophils (%) (Auto) 0% (0-3) 0% (0-3) Neutrophils # (Auto) 3.7x10^3uL (1.8-7.7) 4.6x10^3uL (1.8-7.7) Lymphocytes # (Auto) 0.2x10^3/uL (1.0-4.8) 0.4x10^3/uL (1.0-4.8) Monocytes # (Auto) 0.1x10^3/uL (0.0-1.1) 0.4x10^3/uL (0.0-1.1) Eosinophils # (Auto) 0.1x10^3/uL (0.0-0.7) 0.0x10^3/uL (0.0-0.7) Basophils # (Auto) 0.0x10^3/uL (0.0-0.2) 0.0x10^3/uL (0.0-0.2) Segmented Neutrophils % 87% (35-66) Band Neutrophils % 7% (0-9) Lymphocytes % 3% (24-48) Monocytes % 2% (0-10) Eosinophils % 1% (0-5) Platelet Estimate Decreased (ADEQUATE) Large Platelets Occ Giant Platelets Sodium Level 134mmol/L (136-145) 136mmol/L (136-145) Potassium Level 4.2mmol/L (3.5-5.1) 4.2mmol/L (3.5-5.1) Chloride Level 98mmol/L (98-107) 99mmol/L (98-107) Carbon Dioxide Level 21mmol/L (21-32) 25mmol/L (21-32) Anion Gap 15 (6-14) 12 (6-14) Blood Urea Nitrogen 31mg/dL (7-20) 32mg/dL (7-20) Creatinine 1.6mg/dL (0.6-1.0) 1.7mg/dL (0.6-1.0) Estimated GFR (Cockcroft-Gault) 32.2 30.1 Glucose Level 354mg/dL (70-99) 338mg/dL (70-99) Lactic Acid Level 1.9mmol/L (0.4-2.0) Calcium Level 9.3mg/dL (8.5-10.1) 9.0mg/dL (8.5-10.1) Total Bilirubin 0.7mg/dL (0.2-1.0) Direct Bilirubin 0.4mg/dL (0.0-0.2) Aspartate Amino Transf (AST/SGOT) 96U/L (15-37) Alanine Aminotransferase (ALT/SGPT) 83U/L (14-59) Alkaline Phosphatase 105U/L (46-116) Troponin I Quantitative 0.414ng/mL (0.000-0.055) 0.262ng/mL (0.000-0.055) KH-Fwh-L-Type Natriuretic Peptide 2638pg/mL (0-124) Total Protein 6.5g/dL (6.4-8.2) Albumin 2.7g/dL (3.4-5.0) Lipase 274U/L (73-393) Urine Collection Type Unknown Urine Color Yellow Urine Clarity Cloudy Urine pH 5.5 Urine Specific [place] >=1.030 Urine Protein 100mg/dL (NEG-TRACE) Urine Glucose (UA) >=1000mg/dL (NEG) Urine Ketones (Stick) 15mg/dL (NEG) Urine Blood Large (NEG) Urine Nitrite Negative (NEG) Urine Bilirubin Negative (NEG) Urine Urobilinogen Dipstick 1.0mg/dL (0.2 mg/dL) Urine Leukocyte Esterase Small (NEG) Urine RBC 1-2/HPF (0-2) Urine WBC >40/HPF (0-4) Urine Squamous Epithelial Cells Mod/LPF Urine Bacteria Moderate/HPF (0-FEW) Test 09/10/16 08:20 09/10/16 10:45 09/10/16 11:14 Troponin I Quantitative 0.205ng/mL (0.000-0.055) Influenza Type A Antigen Negative (NEGATIVE) Influenza Type B Antigen Negative (NEGATIVE) Glucose (Fingerstick) 295mg/dL (70-99) Objective Assessment GNR sepsis 09/09 - POA| Acute hypoxic resp failure AMINTA DM ? UTI Plan Plan of Care Cont Zosyn F/u labs and cults Nystatin Powder Needs glycemic control D/w micro D/w Thank you [id number] THOM BLACKWOOD MD Sep 10, 2016 13:18"
[2016-09-10] MEDS: PIPERACILLIN/TAZOBACTAM 2.25 GM in IV NORMAL SALINE 50ML 50 ML IV SCH ×3 (13:30→23:32)
[2016-09-10] MEDS ORDERED: INSULIN GLARGINE HUM REC ANLOG 38 UNIT SQ PRN (13:45)
[2016-09-10] MEDS: LEVOTHYROXINE 125 MCG TABLET PO SCH (13:48)
[2016-09-10] MEDS: ASPIRIN ENTERIC COATED 81 MG TABLET.DR. PO SCH (14:30)
[2016-09-10] MEDS: ESCITALOPRAM 10 MG TABLET. PO SCH (16:49)
[2016-09-10] MEDS: AMLODIPINE BESYLATE 10 MG TABLET PO SCH (16:50)
[2016-09-10] MEDS: METOPROLOL SUCC 24HR ER 100 MG TAB.ER.24H. PO SCH (16:50)
[2016-09-10] MEDS: INSULIN ASPART 300 UNITS/3 ML INSULN.PEN SQ SCH (16:53)
[2016-09-10] MEDS: MAGNESIUM OXIDE 400 MG TABLET PO SCH (21:24)
[2016-09-10] MEDS: INSULIN DETEMIR 300 UNITS/3 ML INSULN.PEN. SQ SCH (21:25)
[2016-09-11] VITALS (18 sets, daily range): BP systolic 71–225; BP diastolic 39–115
--- NOTE | 2016-09-11 00:07 | CONS ---
DATE OF CONSULTATION: 09/10/2016 INFECTIOUS DISEASE CONSULTATION PATIENT'S ROOM: 209. REQUESTING PHYSICIAN: Dr. Cervantes. REASON FOR CONSULTATION: Fever. HISTORY OF PRESENT ILLNESS: The patient is a pleasant 66-year-old female with history of diabetes, who on the was coming out of a restaurant, according to the notes from [facility], and felt a shiver. She presented to [facility] [place] and was evaluated. She had a normal white blood cell count with normal differential. Her creatinine was elevated at 1.8. Could not find any gross abnormality and she was discharged the following day the . After being at home for 4 hours, she felt cold, had shivers, could not control her shaking, she became more short of air and EMS had been called. Apparently, she was desaturating and was brought to [facility] Emergency Room. No gross sinus issues. Occasional cough with sputum production. No gross chest pain or sore throat. She had vomited on the , but not since then. She is incontinent of urine and she has been for quite some time. Denies any nausea, vomiting or diarrhea. On arrival, she had a temperature of 99.6. White count was 4 on arrival, platelets were 59 with 7% bands, creatinine was 1.6. Chest x-ray showed no acute pulmonary process. She had a VQ scan done at [facility] and was felt low probability. Lower extremity ultrasounds were negative. She had been given a dose of Zosyn here. Currently, she is lying in bed and she is fairly comfortable. PAST MEDICAL HISTORY: Positive for depression and diabetes. Her hemoglobin A1c was over 11 at [facility]. Severe obstructive sleep apnea with CPAP, history of heart disease, hypertension, thyroid disease and previous urinary tract infections. PAST SURGICAL HISTORY: Positive for previous cardiac catheterization and right knee surgery. REVIEW OF SYSTEMS: Otherwise negative except for mentioned above. ALLERGIES: No known antibiotic allergies. SHE IS LISTED TO MORPHINE. LOVASTATIN IS ALSO LISTED IN HER ALLERGIES. FAMILY HISTORY: Father of coronary artery disease and cirrhosis. Mother had coronary artery disease. SOCIAL HISTORY: She is . Her is currently with her. No history of any tobacco. CURRENT MEDICATIONS: Again, a dose of Zosyn, aspirin, Tylenol, Lovenox, Lasix. Other meds are available, have been reviewed in the chart. PHYSICAL EXAMINATION: VITAL SIGNS: T-max 99.8 axillary, currently 97.6; pulse 70, respirations 22, blood pressure 111/56, satting 98%, currently she is on 3 liters. CONSTITUTIONAL: She is very pleasant. She is cooperative. She is in no acute distress. She is lying in bed. She is morbidly obese. She is on oxygen. HEENT: Pupils are equal and reactive. Normal conjunctivae. Oral cavity, pharynx is clear. NECK: Supple, no JVD. LUNGS: Clear to auscultation bilaterally. HEART: S1, S2, without murmur. ABDOMEN: Morbidly obese, soft, nontender, nondistended, no guarding, no rebound. Positive bowel sounds. EXTREMITIES: Without clubbing, cyanosis or gross edema. SKIN: Warm to touch without signs of rash. No yeast in her folds. She does have lot of moisture and warmth in her groin area. NEUROLOGIC: She is nonfocal, appropriate and answers questions appropriately. PSYCHIATRIC: Affect is appropriate. LABORATORY VALUES: White count 5.3, hemoglobin 12.6, platelets of 56, neutrophils of 86, creatinine 1.7, glucose of 295. Urine concerning for urinary tract infection, although she does have a moderate amount of squamous cells. Influenza screen was negative. IMPRESSION: 1. Gram-negative sepsis from the 10th present on admission. I did talk to the [facility] and reviewed her [facility] record. She did not have any prior cultures obtained prior to the 10th. 2. Acute hypoxic respiratory failure. 3. Acute kidney injury. 4. Diabetes. 5. Questionable urinary tract infection. RECOMMENDATIONS: We will continue the Zosyn and adjust it for renal function. We will follow up on labs and cultures. We will add nystatin powder. She does have a history of previous yeast infections and she needs glycemic control. This was discussed with nursing. Thank you for allowing me to see and participate in the patient's care. I did discuss with her . Should you have any further questions, please do not hesitate to contact me. THOM BLACKWOOD MD DR: ABELARDO/crys JOB#: [id number] / [id number]
[2016-09-11 03:25] LABS: HCO3 ABG 21 mmol/L (21-28); PCO2 ABG 37 mmHg (35-46); PO2 ABG 107 mmHg (65-108); SAT O2 ABG 98 % (92-99)
[2016-09-11 03:26] LABS: FIO2 ABG 32; PH ABG 7.36 (7.35-7.45)
[2016-09-11] MEDS: IV NORMAL SALINE 1000ML BAG 1,000 ML IV SCH ×3 (03:36→12:17)
[2016-09-11] MEDS: PIPERACILLIN/TAZOBACTAM 2.25 GM in IV NORMAL SALINE 50ML 50 ML IV SCH ×2 (05:44→12:18)
[2016-09-11 06:48] LABS: BASO % 0 % (0-3); EOS % 1 % (0-3); HEMATOCRIT 37.6 % (36.0-47.0); HEMOGLOBIN 12.5 g/dL (12.0-15.5); LYMPH # 0.2 x10^3/uL (1.0-4.8); LYMPH % 3 % (24-48); MEAN CORPUSCULAR HEMOGLOBIN 28 pg (25-35); MEAN CORPUSCULAR HGB CONC 33 g/dL (31-37); MEAN CORPUSCULAR VOLUME 84 fL (79-100); MONO % 4 % (0-9); NEUT % 91 % (31-73); PLATELET COUNT 59 x10^3/uL (140-400); RED BLOOD COUNT 4.45 x10^6/uL (3.50-5.40); RED CELL DISTRIBUTION WIDTH 14.8 % (11.5-14.5); WHITE BLOOD COUNT 5.1 x10^3/uL (4.0-11.0)
[2016-09-11 06:49] LABS: ALBUMIN 2.2 g/dL (3.4-5.0); ALBUMIN/GLOBULIN RATIO 0.5 (1.0-1.7); CALCIUM 9.4 mg/dL (8.5-10.1); CREATININE 1.8 mg/dL (0.6-1.0); GFR 28.2; POTASSIUM 4.2 mmol/L (3.5-5.1); TOTAL BILIRUBIN 0.8 mg/dL (0.2-1.0); TOTAL PROTEIN 6.8 g/dL (6.4-8.2)
[2016-09-11 06:50] LABS: CHOLESTEROL/HDL RATIO 16.4
[2016-09-11] MEDS: IPRATRPIUM/ALBUTEROL 0.5/2.5MG 3 ML NEBU. NEB SCH ×6 (07:31→20:05)
[2016-09-11] MEDS: ASPIRIN ENTERIC COATED 81 MG TABLET.DR. PO SCH (09:00)
[2016-09-11] MEDS: ENOXAPARIN ** NOTE DOSE ** SYRINGE SQ SCH (09:00)
--- NOTE | 2016-09-11 09:21 | PDOC ---
PROGRESS NOTES Chief Complaint Chief Complaint sepsis, POA Acute hypoxic respiratory failure intermittent chest pain DM2, poor control morbid obesity, BMI 49 Gram negative bacteremia CHF chronic diastolic possible KARENA with secondary Pulm HTn pickwickian, CKD 3-4, consutl renal thrombocytopenia, History of Present Illness History of Present Illness intermittent epidsodes of hypoxia on 4 liters, rigors,, confusion, w/ diaphoresis, Vitals Vitals Vital Signs Date Time Temp Pulse Resp B/P Pulse Ox O2 Delivery O2 Flow Rate FiO2 09/11/16 07:49 Nasal Cannula 4.0 09/11/16 07:31 98 09/11/16 07:30 72 124/66 09/11/16 07:00 98.2 22 98.2 Physical Exam General: Alert, Cooperative, mild distress, Other Heart: Regular rate, No murmurs Abdomen: Normal bowel sounds, Soft (obese, ) Extremities: No clubbing, Other (tr edmea, right knee TTP) Skin: No breakdown, No significant lesion, Other (no petechiae) Labs LABS Laboratory Tests Test 09/10/16 10:45 09/10/16 11:14 09/10/16 16:23 09/10/16 19:00 Influenza Type A Antigen Negative (NEGATIVE) Influenza Type B Antigen Negative (NEGATIVE) Glucose (Fingerstick) 295mg/dL (70-99) 368mg/dL (70-99) Lactic Acid Level 2.1mmol/L (0.4-2.0) Test 09/10/16 20:42 09/11/16 01:30 09/11/16 03:19 09/11/16 05:55 Glucose (Fingerstick) 269mg/dL (70-99) 223mg/dL (70-99) O2 Saturation 98% (92-99) Arterial Blood pH 7.36 (7.35-7.45) Arterial Blood pCO2 at Patient Temp 37mmHg (35-46) Arterial Blood pO2 at Patient Temp 107mmHg (65-108) Arterial Blood HCO3 21mmol/L (21-28) Arterial Blood Base Excess -4mmol/L (-3-3) FiO2 32 White Blood Count 5.1x10^3/uL (4.0-11.0) Red Blood Count 4.45x10^6/uL (3.50-5.40) Hemoglobin 12.5g/dL (12.0-15.5) Hematocrit 37.6% (36.0-47.0) Mean Corpuscular Volume 84fL (79-100) Mean Corpuscular Hemoglobin 28pg (25-35) Mean Corpuscular Hemoglobin Concent 33g/dL (31-37) Red Cell Distribution Width 14.8% (11.5-14.5) Platelet Count 59x10^3/uL (140-400) Neutrophils (%) (Auto) 91% (31-73) Lymphocytes (%) (Auto) 3% (24-48) Monocytes (%) (Auto) 4% (0-9) Eosinophils (%) (Auto) 1% (0-3) Basophils (%) (Auto) 0% (0-3) Neutrophils # (Auto) 4.6x10^3uL (1.8-7.7) Lymphocytes # (Auto) 0.2x10^3/uL (1.0-4.8) Monocytes # (Auto) 0.2x10^3/uL (0.0-1.1) Eosinophils # (Auto) 0.0x10^3/uL (0.0-0.7) Basophils # (Auto) 0.0x10^3/uL (0.0-0.2) Sodium Level 131mmol/L (136-145) Potassium Level 4.2mmol/L (3.5-5.1) Chloride Level 98mmol/L (98-107) Carbon Dioxide Level 22mmol/L (21-32) Anion Gap 11 (6-14) Blood Urea Nitrogen 36mg/dL (7-20) Creatinine 1.8mg/dL (0.6-1.0) Estimated GFR (Cockcroft-Gault) 28.2 BUN/Creatinine Ratio 20 (6-20) Glucose Level 235mg/dL (70-99) Calcium Level 9.4mg/dL (8.5-10.1) Total Bilirubin 0.8mg/dL (0.2-1.0) Aspartate Amino Transf (AST/SGOT) 104U/L (15-37) Alanine Aminotransferase (ALT/SGPT) 88U/L (14-59) Alkaline Phosphatase 114U/L (46-116) Total Protein 6.8g/dL (6.4-8.2) Albumin 2.2g/dL (3.4-5.0) Albumin/Globulin Ratio 0.5 (1.0-1.7) Triglycerides Level 191mg/dL (0-150) Cholesterol Level 115mg/dL (0-200) LDL Cholesterol, Calculated 70mg/dL (0-100) VLDL Cholesterol, Calculated 38mg/dL (0-40) HDL Cholesterol 7mg/dL (40-60) Cholesterol/HDL Ratio 16.4 Test 09/11/16 08:04 Glucose (Fingerstick) 178mg/dL (70-99) Assessment and Plan Assessmemt and Plan Problems Medical Problems: (1) Hypoxia Status: Acute (2) Hypoxic Status: Acute (3) NSTEMI (non-ST elevated myocardial infarction) Status: Acute (4) Shortness of breath Status: Acute Problems: Comment Review of Relevant I have reviewed the following items jeffrey (where applicable) has been applied. Labs Laboratory Tests Test 09/09/16 19:20 09/09/16 20:00 09/09/16 22:52 09/10/16 03:00 White Blood Count 4.0x10^3/uL (4.0-11.0) Red Blood Count 4.58x10^6/uL (3.50-5.40) Hemoglobin 12.8g/dL (12.0-15.5) Hematocrit 39.3% (36.0-47.0) Mean Corpuscular Volume 86fL (79-100) Mean Corpuscular Hemoglobin 28pg (25-35) Mean Corpuscular Hemoglobin Concent 33g/dL (31-37) Red Cell Distribution Width 14.2% (11.5-14.5) Platelet Count 59x10^3/uL (140-400) Neutrophils (%) (Auto) 92% (31-73) Lymphocytes (%) (Auto) 4% (24-48) Monocytes (%) (Auto) 3% (0-9) Eosinophils (%) (Auto) 1% (0-3) Basophils (%) (Auto) 0% (0-3) Neutrophils # (Auto) 3.7x10^3uL (1.8-7.7) Lymphocytes # (Auto) 0.2x10^3/uL (1.0-4.8) Monocytes # (Auto) 0.1x10^3/uL (0.0-1.1) Eosinophils # (Auto) 0.1x10^3/uL (0.0-0.7) Basophils # (Auto) 0.0x10^3/uL (0.0-0.2) Segmented Neutrophils % 87% (35-66) Band Neutrophils % 7% (0-9) Lymphocytes % 3% (24-48) Monocytes % 2% (0-10) Eosinophils % 1% (0-5) Platelet Estimate Decreased (ADEQUATE) Large Platelets Occ Giant Platelets Sodium Level 134mmol/L (136-145) Potassium Level 4.2mmol/L (3.5-5.1) Chloride Level 98mmol/L (98-107) Carbon Dioxide Level 21mmol/L (21-32) Anion Gap 15 (6-14) Blood Urea Nitrogen 31mg/dL (7-20) Creatinine 1.6mg/dL (0.6-1.0) Estimated GFR (Cockcroft-Gault) 32.2 Glucose Level 354mg/dL (70-99) Lactic Acid Level 1.9mmol/L (0.4-2.0) Calcium Level 9.3mg/dL (8.5-10.1) Total Bilirubin 0.7mg/dL (0.2-1.0) Direct Bilirubin 0.4mg/dL (0.0-0.2) Aspartate Amino Transf (AST/SGOT) 96U/L (15-37) Alanine Aminotransferase (ALT/SGPT) 83U/L (14-59) Alkaline Phosphatase 105U/L (46-116) Troponin I Quantitative 0.414ng/mL (0.000-0.055) 0.262ng/mL (0.000-0.055) VH-Riu-D-Type Natriuretic Peptide 2638pg/mL (0-124) Total Protein 6.5g/dL (6.4-8.2) Albumin 2.7g/dL (3.4-5.0) Lipase 274U/L (73-393) Urine Collection Type Unknown Urine Color Yellow Urine Clarity Cloudy Urine pH 5.5 Urine Specific Dexter >=1.030 Urine Protein 100mg/dL (NEG-TRACE) Urine Glucose (UA) >=1000mg/dL (NEG) Urine Ketones (Stick) 15mg/dL (NEG) Urine Blood Large (NEG) Urine Nitrite Negative (NEG) Urine Bilirubin Negative (NEG) Urine Urobilinogen Dipstick 1.0mg/dL (0.2 mg/dL) Urine Leukocyte Esterase Small (NEG) Urine RBC 1-2/HPF (0-2) Urine WBC >40/HPF (0-4) Urine Squamous Epithelial Cells Mod/LPF Urine Bacteria Moderate/HPF (0-FEW) Glucose (Fingerstick) 320mg/dL (70-99) Test 09/10/16 05:00 09/10/16 08:20 09/10/16 08:41 09/10/16 10:45 White Blood Count 5.3x10^3/uL (4.0-11.0) Red Blood Count 4.48x10^6/uL (3.50-5.40) Hemoglobin 12.6g/dL (12.0-15.5) Hematocrit 38.1% (36.0-47.0) Mean Corpuscular Volume 85fL (79-100) Mean Corpuscular Hemoglobin 28pg (25-35) Mean Corpuscular Hemoglobin Concent 33g/dL (31-37) Red Cell Distribution Width 14.3% (11.5-14.5) Platelet Count 56x10^3/uL (140-400) Neutrophils (%) (Auto) 86% (31-73) Lymphocytes (%) (Auto) 7% (24-48) Monocytes (%) (Auto) 7% (0-9) Eosinophils (%) (Auto) 1% (0-3) Basophils (%) (Auto) 0% (0-3) Neutrophils # (Auto) 4.6x10^3uL (1.8-7.7) Lymphocytes # (Auto) 0.4x10^3/uL (1.0-4.8) Monocytes # (Auto) 0.4x10^3/uL (0.0-1.1) Eosinophils # (Auto) 0.0x10^3/uL (0.0-0.7) Basophils # (Auto) 0.0x10^3/uL (0.0-0.2) Sodium Level 136mmol/L (136-145) Potassium Level 4.2mmol/L (3.5-5.1) Chloride Level 99mmol/L (98-107) Carbon Dioxide Level 25mmol/L (21-32) Anion Gap 12 (6-14) Blood Urea Nitrogen 32mg/dL (7-20) Creatinine 1.7mg/dL (0.6-1.0) Estimated GFR (Cockcroft-Gault) 30.1 Glucose Level 338mg/dL (70-99) Calcium Level 9.0mg/dL (8.5-10.1) Troponin I Quantitative 0.205ng/mL (0.000-0.055) Glucose (Fingerstick) 312mg/dL (70-99) Influenza Type A Antigen Negative (NEGATIVE) Influenza Type B Antigen Negative (NEGATIVE) Test 09/10/16 11:14 09/10/16 16:23 09/10/16 19:00 09/10/16 20:42 Glucose (Fingerstick) 295mg/dL (70-99) 368mg/dL (70-99) 269mg/dL (70-99) Lactic Acid Level 2.1mmol/L (0.4-2.0) Test 09/11/16 01:30 09/11/16 03:19 09/11/16 05:55 09/11/16 08:04 Glucose (Fingerstick) 223mg/dL (70-99) 178mg/dL (70-99) O2 Saturation 98% (92-99) Arterial Blood pH 7.36 (7.35-7.45) Arterial Blood pCO2 at Patient Temp 37mmHg (35-46) Arterial Blood pO2 at Patient Temp 107mmHg (65-108) Arterial Blood HCO3 21mmol/L (21-28) Arterial Blood Base Excess -4mmol/L (-3-3) FiO2 32 White Blood Count 5.1x10^3/uL (4.0-11.0) Red Blood Count 4.45x10^6/uL (3.50-5.40) Hemoglobin 12.5g/dL (12.0-15.5) Hematocrit 37.6% (36.0-47.0) Mean Corpuscular Volume 84fL (79-100) Mean Corpuscular Hemoglobin 28pg (25-35) Mean Corpuscular Hemoglobin Concent 33g/dL (31-37) Red Cell Distribution Width 14.8% (11.5-14.5) Platelet Count 59x10^3/uL (140-400) Neutrophils (%) (Auto) 91% (31-73) Lymphocytes (%) (Auto) 3% (24-48) Monocytes (%) (Auto) 4% (0-9) Eosinophils (%) (Auto) 1% (0-3) Basophils (%) (Auto) 0% (0-3) Neutrophils # (Auto) 4.6x10^3uL (1.8-7.7) Lymphocytes # (Auto) 0.2x10^3/uL (1.0-4.8) Monocytes # (Auto) 0.2x10^3/uL (0.0-1.1) Eosinophils # (Auto) 0.0x10^3/uL (0.0-0.7) Basophils # (Auto) 0.0x10^3/uL (0.0-0.2) Sodium Level 131mmol/L (136-145) Potassium Level 4.2mmol/L (3.5-5.1) Chloride Level 98mmol/L (98-107) Carbon Dioxide Level 22mmol/L (21-32) Anion Gap 11 (6-14) Blood Urea Nitrogen 36mg/dL (7-20) Creatinine 1.8mg/dL (0.6-1.0) Estimated GFR (Cockcroft-Gault) 28.2 BUN/Creatinine Ratio 20 (6-20) Glucose Level 235mg/dL (70-99) Calcium Level 9.4mg/dL (8.5-10.1) Total Bilirubin 0.8mg/dL (0.2-1.0) Aspartate Amino Transf (AST/SGOT) 104U/L (15-37) Alanine Aminotransferase (ALT/SGPT) 88U/L (14-59) Alkaline Phosphatase 114U/L (46-116) Total Protein 6.8g/dL (6.4-8.2) Albumin 2.2g/dL (3.4-5.0) Albumin/Globulin Ratio 0.5 (1.0-1.7) Triglycerides Level 191mg/dL (0-150) Cholesterol Level 115mg/dL (0-200) LDL Cholesterol, Calculated 70mg/dL (0-100) VLDL Cholesterol, Calculated 38mg/dL (0-40) HDL Cholesterol 7mg/dL (40-60) Cholesterol/HDL Ratio 16.4 Laboratory Tests Test 09/10/16 10:45 09/10/16 11:14 09/10/16 16:23 09/10/16 19:00 Influenza Type A Antigen Negative (NEGATIVE) Influenza Type B Antigen Negative (NEGATIVE) Glucose (Fingerstick) 295mg/dL (70-99) 368mg/dL (70-99) Lactic Acid Level 2.1mmol/L (0.4-2.0) Test 09/10/16 20:42 09/11/16 01:30 09/11/16 03:19 09/11/16 05:55 Glucose (Fingerstick) 269mg/dL (70-99) 223mg/dL (70-99) O2 Saturation 98% (92-99) Arterial Blood pH 7.36 (7.35-7.45) Arterial Blood pCO2 at Patient Temp 37mmHg (35-46) Arterial Blood pO2 at Patient Temp 107mmHg (65-108) Arterial Blood HCO3 21mmol/L (21-28) Arterial Blood Base Excess -4mmol/L (-3-3) FiO2 32 White Blood Count 5.1x10^3/uL (4.0-11.0) Red Blood Count 4.45x10^6/uL (3.50-5.40) Hemoglobin 12.5g/dL (12.0-15.5) Hematocrit 37.6% (36.0-47.0) Mean Corpuscular Volume 84fL (79-100) Mean Corpuscular Hemoglobin 28pg (25-35) Mean Corpuscular Hemoglobin Concent 33g/dL (31-37) Red Cell Distribution Width 14.8% (11.5-14.5) Platelet Count 59x10^3/uL (140-400) Neutrophils (%) (Auto) 91% (31-73) Lymphocytes (%) (Auto) 3% (24-48) Monocytes (%) (Auto) 4% (0-9) Eosinophils (%) (Auto) 1% (0-3) Basophils (%) (Auto) 0% (0-3) Neutrophils # (Auto) 4.6x10^3uL (1.8-7.7) Lymphocytes # (Auto) 0.2x10^3/uL (1.0-4.8) Monocytes # (Auto) 0.2x10^3/uL (0.0-1.1) Eosinophils # (Auto) 0.0x10^3/uL (0.0-0.7) Basophils # (Auto) 0.0x10^3/uL (0.0-0.2) Sodium Level 131mmol/L (136-145) Potassium Level 4.2mmol/L (3.5-5.1) Chloride Level 98mmol/L (98-107) Carbon Dioxide Level 22mmol/L (21-32) Anion Gap 11 (6-14) Blood Urea Nitrogen 36mg/dL (7-20) Creatinine 1.8mg/dL (0.6-1.0) Estimated GFR (Cockcroft-Gault) 28.2 BUN/Creatinine Ratio 20 (6-20) Glucose Level 235mg/dL (70-99) Calcium Level 9.4mg/dL (8.5-10.1) Total Bilirubin 0.8mg/dL (0.2-1.0) Aspartate Amino Transf (AST/SGOT) 104U/L (15-37) Alanine Aminotransferase (ALT/SGPT) 88U/L (14-59) Alkaline Phosphatase 114U/L (46-116) Total Protein 6.8g/dL (6.4-8.2) Albumin 2.2g/dL (3.4-5.0) Albumin/Globulin Ratio 0.5 (1.0-1.7) Triglycerides Level 191mg/dL (0-150) Cholesterol Level 115mg/dL (0-200) LDL Cholesterol, Calculated 70mg/dL (0-100) VLDL Cholesterol, Calculated 38mg/dL (0-40) HDL Cholesterol 7mg/dL (40-60) Cholesterol/HDL Ratio 16.4 Test 09/11/16 08:04 Glucose (Fingerstick) 178mg/dL (70-99) Microbiology 09/09/16 Blood Culture - Final, Complete 09/09/16 Urine Culture - Preliminary, Resulted 09/09/16 Urine Culture Result 1 (QUIQUE) - Preliminary, Resulted 09/09/16 Urine Culture Result 2 (QUIQUE) - Preliminary, Resulted Medications Current Medications Albuterol/ Ipratropium 3 ml 3 ml 1X ONCE NEB Last administered on 3/10/17at 18 :47; Start 09/09/16 at 18:45; Stop 09/09/16 at 18:46; Status DC Sodium Chloride (Iv Sodium Chloride 0.9% 1000ml Bag) 1,000 ml @ 1,000 mls/hr 1X ONCE IV Last administered on 09/09/16 19:56; Start 09/09/16 at 18:45; Stop 09/09/16 at 19:44; Status DC Albuterol/ Ipratropium (Duoneb) 3 ml 1X ONCE NEB Last administered on 21:21; Start 09/09/16 at 20:15; Stop 09/09/16 at 20:16; Status DC Aspirin 324 mg 324 mg 1X ONCE PO Last administered on 09/09/16 20:57; Start 09/09/16 at 20:15; Stop 09/09/16 at 20:18; Status DC Piperacillin Sod/ Tazobactam Sod/ Sodium Chloride (Zosyn/Iv Sodium Chloride 0.9 % 50ml) 50 ml @ 100 mls/hr 1X ONCE IV Last administered on 09/09/16 20:57; Start 09/09/16 at 20:45; Stop 09/09/16 at 21:14; Status DC Furosemide (Lasix) 40 mg 1X ONCE IVP Last administered on 09/09/16 20:58; Start 09/09/16 at 20:45; Stop 09/09/16 at 20:46; Status DC Enoxaparin Sodium (Lovenox Per Pharmacy Treatment Dosing) 1 each PRN DAILY PRN MC SEE COMMENTS; Start 09/09/16 at 20:45 Enoxaparin Sodium (Lovenox 150mg Syringe) 130 mg Q12HR SQ ; Start 09/09/16 at 21 :00 Ondansetron HCl (Zofran) 4 mg PRN Q8HRS PRN IV NAUSEA/VOMITING; Start 09/09/16 at 20:45; Stop 09/10/16 at 20:44; Status DC Albuterol/ Ipratropium (Duoneb) 3 ml RTQID NEB Last administered on 09/11/16 07:31; Start 09/10/16 at 08:00; Stop 09/11/16 at 07:59; Status DC Acetaminophen 650 mg 650 mg PRN Q6HRS PRN PO MILD PAIN / TEMP Last administered on 09/10/16 21:33; Start 09/10/16 at 06:15 Sodium Chloride 1,000 ml @ 100 mls/hr Q10H IV Last administered on 09/11/16 03:36; Start 09/10/16 at 12:30 Piperacillin Sod/ Tazobactam Sod/ Sodium Chloride (Zosyn/Iv Sodium Chloride 0.9 % 50ml) 50 ml @ 100 mls/hr Q6HRS IV Last administered on 09/11/16 05:44; Start 09/10/16 at 13:30 Amlodipine Besylate (Norvasc) 10 mg DAILY07 PO Last administered on 09/10/16 16:50; Start 09/10/16 at 14:30 Aspirin (Ecotrin) 81 mg DAILY PO ; Start 09/10/16 at 14:30 Bupropion HCl (Wellbutrin Xl) 150 mg DAILY PO ; Start 09/11/16 at 09:00 Escitalopram Oxalate (Lexapro) 20 mg DAILY PO Last administered on 09/10/16 16 :49; Start 09/10/16 at 14:30 Magnesium Oxide (Magnesium Oxide) 400 mg BID PO Last administered on 09/10/16 21:24; Start 09/10/16 at 21:00 Metoprolol Succinate (Toprol Xl) 100 mg DAILY PO Last administered on 16:50; Start 09/10/16 at 14:30 Non-Formulary Medication 38 unit HS PRN SQ SEE COMMENTS; Start 09/10/16 at 13: 45; Stop 09/10/16 at 13:45; Status DC Insulin Aspart (Novolog) 20 units TIDAC SQ Last administered on 09/10/16 16:53 ; Start 09/10/16 at 16:30 Levothyroxine Sodium (Synthroid) 250 mcg DAILY07 PO ; Start 09/10/16 at 14:30 Insulin Detemir (Levemir) 38 units QHS SQ Last administered on 09/10/16 21:25 ; Start 09/10/16 at 21:00 Active Scripts Active Reported Bupropion Hcl Sr (Bupropion Hcl) 100 Mg Tablet.er 75 Mg PO BID Humalog Kwikpen (Insulin Lispro) 200 Unit/1 Ml Insuln.pen 20 Unit SQ TIDWMEALS Gregory Quesadaostjustin (Insulin Glargine,Hum.rec.anlog) 300 Unit/1 Ml Insuln.pen 38 Unit SQ HS PRN Metformin Hcl 1,000 Mg Tablet 1 Tab PO BID Levothyroxine Sodium 200 Mcg Tablet 250 Mcg PO DAILYAC Magnesium Oxide 400 Mg Tablet 1 Tab PO BID Aspir 81 (Aspirin) 81 Mg Tablet.dr 1 Tab PO DAILY Losartan-Hctz 100-12.5 Mg Tab (Losartan/Hydrochlorothiazide) 1 Each Tablet Rosuvastatin Calcium 20 Mg Tablet 20 Mg Metoprolol Succinate ( Xl ) (Metoprolol Succinate) 100 Mg Tab.er.24h 100 Mg Omeprazole 40 Mg Capsule.dr 40 Mg Escitalopram Oxalate 10 Mg Tablet 20 Mg PO Norvasc (Amlodipine Besylate) 10 Mg Tablet 10 Mg PO DAILY07 Vitals/I & O Vital Sign - Last 24 Hours 09/10/16 09/10/16 09/10/16 09/10/16 11:11 13:00 14:04 15:55 Temp 97.6 97.6 97.6 97.6 Pulse 70 81 Resp 22 B/P 111/56 113/50 Pulse Ox 98 99 98 O2 Delivery Nasal Cannula Nasal Cannula Nasal Cannula Nasal Cannula O2 Flow Rate 4.0 3.0 4.0 4.0 09/10/16 09/10/16 09/10/16 09/10/16 16:50 16:50 19:10 19:48 Temp 98.1 98.1 Pulse 101 101 94 Resp 26 B/P 137/88 137/88 135/59 Pulse Ox 96 95 O2 Delivery Nasal Cannula Nasal Cannula O2 Flow Rate 4.0 4.0 09/10/16 09/10/16 09/10/16 09/11/16 20:00 23:00 23:40 01:00 Temp 97.7 97.7 Pulse 68 65 60 Resp 20 B/P 91/45 92/50 101/48 Pulse Ox 96 O2 Delivery Nasal Cannula Room Air O2 Flow Rate 4.0 09/11/16 09/11/16 09/11/16 09/11/16 01:35 01:35 03:00 04:00 Temp 97.4 97.7 97.4 97.7 Pulse 61 94 83 Resp 28 22 B/P 106/55 225/115 120/84 Pulse Ox 99 97 93 O2 Delivery Nasal Cannula Nasal Cannula O2 Flow Rate 3.0 3.0 09/11/16 09/11/16 09/11/16 09/11/16 04:00 04:28 05:30 06:00 Pulse 77 72 B/P 185/87 118/63 119/62 Pulse Ox 94 09/11/16 09/11/16 09/11/16 09/11/16 06:30 07:00 07:00 07:30 Temp 98.2 98.2 Pulse 75 76 69 72 Resp 22 B/P 117/64 124/66 112/58 124/66 Pulse Ox 95 O2 Delivery Nasal Cannula O2 Flow Rate 3.0 09/11/16 09/11/16 07:31 07:49 Pulse Ox 98 O2 Delivery Nasal Cannula Nasal Cannula O2 Flow Rate 4.0 4.0 Intake and Output 09/10/16 09/10/16 09/11/16 15:00 23:00 07:00 Intake Total 3361 ml 1449 ml Output Total 250 ml Balance 3111 ml 1449 ml GAUTAM HEATH MD Sep 11, 2016 09:21
[2016-09-11] MEDS: ACETAMINOPHEN 325 MG TABLET. PO PRN ×2 (09:34→16:34)
[2016-09-11] MEDS: buPROPion XL 150 MG TAB.ER.24H PO SCH (09:35)
[2016-09-11] MEDS: METOPROLOL SUCC 24HR ER 100 MG TAB.ER.24H. PO SCH (09:35)
[2016-09-11] MEDS: LEVOTHYROXINE 125 MCG TABLET PO SCH (09:35)
[2016-09-11] MEDS: AMLODIPINE BESYLATE 10 MG TABLET PO SCH (09:35)
[2016-09-11] MEDS: MAGNESIUM OXIDE 400 MG TABLET PO SCH ×2 (09:35→21:21)
[2016-09-11] MEDS: ESCITALOPRAM 10 MG TABLET. PO SCH (09:36)
[2016-09-11] MEDS: INSULIN ASPART 300 UNITS/3 ML INSULN.PEN SQ SCH ×3 (09:44→16:30)
--- NOTE | 2016-09-11 10:07 | PDOC2 ---
CONSULT Date of Consult Date of Consult DATE: 09/11/16 TIME: 10:01 Reason for Consult Reason for Consult: Thrombocytopenia Referring Physician Referring Physician: Jasbir Identification/Chief Complaint Chief Complaint Sepsis Source Source: Caregiver, Chart review, Patient History of Present Illness Reason for Visit: 66yo presented with hypoxic respiratory failure, elevated LFTs, AMINTA and found to have gram-negative bacteremia. Has been sick for 4-5 months with worsening breathing and cough. Noted to have platelets in 50s and we were consulted to comment. Currently feels exhausted. Denies bruising, bleeding, or history of thrombocytopenia. Notes several episodes of extreme dyspnea in last few days. Apparently associated with cyanosis per RN. Has been wheezing and on nebs. No significant pain. Past Medical History Cardiovascular: HTN, Hyperlipidemia Pulmonary: No pertinent hx, Other CENTRAL NERVOUS SYSTEM: Migraine GI: GERD Heme/Onc: Cancer (Uterine cancer resected 2014) Hepatobiliary: Other Psych: No pertinent hx Musculoskeletal: Osteoarthritis Rheumatologic: No pertinent hx Infectious disease: No pertinent hx Renal/: No pertinent hx, Other Endocrine: Diabetes, Hypothyroidism Past Surgical History Past Surgical History: Cholecystectomy, Hysterectomy Family History Family History: Alcohol Abuse Social History No ALCOHOL: none Drugs: None Current Problem List Problem List Problems Medical Problems: (1) Hypoxia Status: Acute (2) Hypoxic Status: Acute (3) NSTEMI (non-ST elevated myocardial infarction) Status: Acute (4) Shortness of breath Status: Acute Current Medications Current Medications Current Medications Albuterol/ Ipratropium 3 ml 3 ml 1X ONCE NEB Last administered on 09/09/16 18 :47; Start 09/09/16 at 18:45; Stop 09/09/16 at 18:46; Status DC Sodium Chloride (Iv Sodium Chloride 0.9% 1000ml Bag) 1,000 ml @ 1,000 mls/hr 1X ONCE IV Last administered on 09/09/16 19:56; Start 09/09/16 at 18:45; Stop 09/09/16 at 19:44; Status DC Albuterol/ Ipratropium (Duoneb) 3 ml 1X ONCE NEB Last administered on 21:21; Start 09/09/16 at 20:15; Stop 09/09/16 at 20:16; Status DC Aspirin 324 mg 324 mg 1X ONCE PO Last administered on 09/09/16 20:57; Start 09/09/16 at 20:15; Stop 09/09/16 at 20:18; Status DC Piperacillin Sod/ Tazobactam Sod/ Sodium Chloride (Zosyn/Iv Sodium Chloride 0.9 % 50ml) 50 ml @ 100 mls/hr 1X ONCE IV Last administered on 09/09/16 20:57; Start 09/09/16 at 20:45; Stop 09/09/16 at 21:14; Status DC Furosemide (Lasix) 40 mg 1X ONCE IVP Last administered on 09/09/16 20:58; Start 09/09/16 at 20:45; Stop 09/09/16 at 20:46; Status DC Enoxaparin Sodium (Lovenox Per Pharmacy Treatment Dosing) 1 each PRN DAILY PRN MC SEE COMMENTS; Start 09/09/16 at 20:45 Enoxaparin Sodium (Lovenox 150mg Syringe) 130 mg Q12HR SQ ; Start 09/09/16 at 21 :00 Ondansetron HCl (Zofran) 4 mg PRN Q8HRS PRN IV NAUSEA/VOMITING; Start 09/09/16 at 20:45; Stop 09/10/16 at 20:44; Status DC Albuterol/ Ipratropium (Duoneb) 3 ml RTQID NEB Last administered on 09/11/16 07:31; Start 09/10/16 at 08:00; Stop 09/11/16 at 07:59; Status DC Acetaminophen 650 mg 650 mg PRN Q6HRS PRN PO MILD PAIN / TEMP Last administered on 09/11/16 09:34; Start 09/10/16 at 06:15 Sodium Chloride 1,000 ml @ 100 mls/hr Q10H IV Last administered on 09/11/16 03:36; Start 09/10/16 at 12:30 Piperacillin Sod/ Tazobactam Sod/ Sodium Chloride (Zosyn/Iv Sodium Chloride 0.9 % 50ml) 50 ml @ 100 mls/hr Q6HRS IV Last administered on 09/11/16 05:44; Start 09/10/16 at 13:30 Amlodipine Besylate (Norvasc) 10 mg DAILY07 PO Last administered on 09/11/16 09:35; Start 09/10/16 at 14:30 Aspirin (Ecotrin) 81 mg DAILY PO ; Start 09/10/16 at 14:30 Bupropion HCl (Wellbutrin Xl) 150 mg DAILY PO Last administered on 09/11/16 09 :35; Start 09/11/16 at 09:00 Escitalopram Oxalate (Lexapro) 20 mg DAILY PO Last administered on 09/11/16 09 :36; Start 09/10/16 at 14:30 Magnesium Oxide (Magnesium Oxide) 400 mg BID PO Last administered on 09/11/16 09:35; Start 09/10/16 at 21:00 Metoprolol Succinate (Toprol Xl) 100 mg DAILY PO Last administered on 09:35; Start 09/10/16 at 14:30 Non-Formulary Medication 38 unit HS PRN SQ SEE COMMENTS; Start 09/10/16 at 13: 45; Stop 09/10/16 at 13:45; Status DC Insulin Aspart (Novolog) 20 units TIDAC SQ Last administered on 09/11/16 09:44 ; Start 09/10/16 at 16:30 Levothyroxine Sodium (Synthroid) 250 mcg DAILY07 PO Last administered on 09:35; Start 09/10/16 at 14:30 Insulin Detemir (Levemir) 38 units QHS SQ Last administered on 09/10/16 21:25 ; Start 09/10/16 at 21:00 Active Scripts Active Reported Bupropion Hcl Sr (Bupropion Hcl) 100 Mg Tablet.er 75 Mg PO BID Humalog Kwikpen (Insulin Lispro) 200 Unit/1 Ml Insuln.pen 20 Unit SQ TIDWMEALS Toujeo Solostar (Insulin Glargine,Hum.rec.anlog) 300 Unit/1 Ml Insuln.pen 38 Unit SQ HS PRN Metformin Hcl 1,000 Mg Tablet 1 Tab PO BID Levothyroxine Sodium 200 Mcg Tablet 250 Mcg PO DAILYAC Magnesium Oxide 400 Mg Tablet 1 Tab PO BID Aspir 81 (Aspirin) 81 Mg Tablet.dr 1 Tab PO DAILY Losartan-Hctz 100-12.5 Mg Tab (Losartan/Hydrochlorothiazide) 1 Each Tablet Rosuvastatin Calcium 20 Mg Tablet 20 Mg Metoprolol Succinate ( Xl ) (Metoprolol Succinate) 100 Mg Tab.er.24h 100 Mg Omeprazole 40 Mg Capsule.dr 40 Mg Escitalopram Oxalate 10 Mg Tablet 20 Mg PO Norvasc (Amlodipine Besylate) 10 Mg Tablet 10 Mg PO DAILY07 Allergies Allergies: Coded Allergies: morphine (Verified Allergy, Intermediate, 10/08/14) lovastatin (Verified Allergy, Unknown, 10/14/14) CAUSES MUSCLE SPASMS ROS General: YES: Fatigue PSYCHOLOGICAL ROS: No: Behavioral Disorder Eyes: No Blurry vision HEENT: No: Visual Changes ALLERGY AND IMMUNOLOGY: YES: Nasal Congestion Hematological and Lymphatic: No: Bleeding Problems, Brusing Respiratory: YES: Cough, Shortness of breath Cardiovascular: No Edema Gastrointestinal: No Nausea Genitourinary: No Dysuria Musculoskeletal: No Gait Disturbance Neurological: Yes Bowel/Bladder ControlChng Skin: No Rash Physical Exam General: Alert, Oriented X3 HEENT: Atraumatic Lungs: Other (Coarse BS bilaterally - no overt wheeze) Heart: Regular rate Abdomen: Soft Extremities: No clubbing, No edema Skin: No rashes Neuro: Normal speech Psych/Mental Status: Mental status NL MUSCULOSKELETAL: No deformity Vitals VITALS Vital Signs Date Time Temp Pulse Resp B/P Pulse Ox O2 Delivery O2 Flow Rate FiO2 09/11/16 09:35 72 124/66 09/11/16 07:49 Nasal Cannula 4.0 09/11/16 07:31 98 09/11/16 07:00 98.2 22 98.2 Labs Labs Laboratory Tests Test 09/09/16 19:20 09/09/16 20:00 09/09/16 22:52 09/10/16 03:00 White Blood Count 4.0x10^3/uL (4.0-11.0) Red Blood Count 4.58x10^6/uL (3.50-5.40) Hemoglobin 12.8g/dL (12.0-15.5) Hematocrit 39.3% (36.0-47.0) Mean Corpuscular Volume 86fL (79-100) Mean Corpuscular Hemoglobin 28pg (25-35) Mean Corpuscular Hemoglobin Concent 33g/dL (31-37) Red Cell Distribution Width 14.2% (11.5-14.5) Platelet Count 59x10^3/uL (140-400) Neutrophils (%) (Auto) 92% (31-73) Lymphocytes (%) (Auto) 4% (24-48) Monocytes (%) (Auto) 3% (0-9) Eosinophils (%) (Auto) 1% (0-3) Basophils (%) (Auto) 0% (0-3) Neutrophils # (Auto) 3.7x10^3uL (1.8-7.7) Lymphocytes # (Auto) 0.2x10^3/uL (1.0-4.8) Monocytes # (Auto) 0.1x10^3/uL (0.0-1.1) Eosinophils # (Auto) 0.1x10^3/uL (0.0-0.7) Basophils # (Auto) 0.0x10^3/uL (0.0-0.2) Segmented Neutrophils % 87% (35-66) Band Neutrophils % 7% (0-9) Lymphocytes % 3% (24-48) Monocytes % 2% (0-10) Eosinophils % 1% (0-5) Platelet Estimate Decreased (ADEQUATE) Large Platelets Occ Giant Platelets Sodium Level 134mmol/L (136-145) Potassium Level 4.2mmol/L (3.5-5.1) Chloride Level 98mmol/L (98-107) Carbon Dioxide Level 21mmol/L (21-32) Anion Gap 15 (6-14) Blood Urea Nitrogen 31mg/dL (7-20) Creatinine 1.6mg/dL (0.6-1.0) Estimated GFR (Cockcroft-Gault) 32.2 Glucose Level 354mg/dL (70-99) Lactic Acid Level 1.9mmol/L (0.4-2.0) Calcium Level 9.3mg/dL (8.5-10.1) Total Bilirubin 0.7mg/dL (0.2-1.0) Direct Bilirubin 0.4mg/dL (0.0-0.2) Aspartate Amino Transf (AST/SGOT) 96U/L (15-37) Alanine Aminotransferase (ALT/SGPT) 83U/L (14-59) Alkaline Phosphatase 105U/L (46-116) Troponin I Quantitative 0.414ng/mL (0.000-0.055) 0.262ng/mL (0.000-0.055) OT-Voc-I-Type Natriuretic Peptide 2638pg/mL (0-124) Total Protein 6.5g/dL (6.4-8.2) Albumin 2.7g/dL (3.4-5.0) Lipase 274U/L (73-393) Urine Collection Type Unknown Urine Color Yellow Urine Clarity Cloudy Urine pH 5.5 Urine Specific [place] >=1.030 Urine Protein 100mg/dL (NEG-TRACE) Urine Glucose (UA) >=1000mg/dL (NEG) Urine Ketones (Stick) 15mg/dL (NEG) Urine Blood Large (NEG) Urine Nitrite Negative (NEG) Urine Bilirubin Negative (NEG) Urine Urobilinogen Dipstick 1.0mg/dL (0.2 mg/dL) Urine Leukocyte Esterase Small (NEG) Urine RBC 1-2/HPF (0-2) Urine WBC >40/HPF (0-4) Urine Squamous Epithelial Cells Mod/LPF Urine Bacteria Moderate/HPF (0-FEW) Glucose (Fingerstick) 320mg/dL (70-99) Test 09/10/16 05:00 09/10/16 08:20 09/10/16 08:41 09/10/16 10:45 White Blood Count 5.3x10^3/uL (4.0-11.0) Red Blood Count 4.48x10^6/uL (3.50-5.40) Hemoglobin 12.6g/dL (12.0-15.5) Hematocrit 38.1% (36.0-47.0) Mean Corpuscular Volume 85fL (79-100) Mean Corpuscular Hemoglobin 28pg (25-35) Mean Corpuscular Hemoglobin Concent 33g/dL (31-37) Red Cell Distribution Width 14.3% (11.5-14.5) Platelet Count 56x10^3/uL (140-400) Neutrophils (%) (Auto) 86% (31-73) Lymphocytes (%) (Auto) 7% (24-48) Monocytes (%) (Auto) 7% (0-9) Eosinophils (%) (Auto) 1% (0-3) Basophils (%) (Auto) 0% (0-3) Neutrophils # (Auto) 4.6x10^3uL (1.8-7.7) Lymphocytes # (Auto) 0.4x10^3/uL (1.0-4.8) Monocytes # (Auto) 0.4x10^3/uL (0.0-1.1) Eosinophils # (Auto) 0.0x10^3/uL (0.0-0.7) Basophils # (Auto) 0.0x10^3/uL (0.0-0.2) Sodium Level 136mmol/L (136-145) Potassium Level 4.2mmol/L (3.5-5.1) Chloride Level 99mmol/L (98-107) Carbon Dioxide Level 25mmol/L (21-32) Anion Gap 12 (6-14) Blood Urea Nitrogen 32mg/dL (7-20) Creatinine 1.7mg/dL (0.6-1.0) Estimated GFR (Cockcroft-Gault) 30.1 Glucose Level 338mg/dL (70-99) Calcium Level 9.0mg/dL (8.5-10.1) Troponin I Quantitative 0.205ng/mL (0.000-0.055) Glucose (Fingerstick) 312mg/dL (70-99) Influenza Type A Antigen Negative (NEGATIVE) Influenza Type B Antigen Negative (NEGATIVE) Test 09/10/16 11:14 09/10/16 16:23 09/10/16 19:00 09/10/16 20:42 Glucose (Fingerstick) 295mg/dL (70-99) 368mg/dL (70-99) 269mg/dL (70-99) Lactic Acid Level 2.1mmol/L (0.4-2.0) Test 09/11/16 01:30 09/11/16 03:19 09/11/16 05:55 09/11/16 08:04 Glucose (Fingerstick) 223mg/dL (70-99) 178mg/dL (70-99) O2 Saturation 98% (92-99) Arterial Blood pH 7.36 (7.35-7.45) Arterial Blood pCO2 at Patient Temp 37mmHg (35-46) Arterial Blood pO2 at Patient Temp 107mmHg (65-108) Arterial Blood HCO3 21mmol/L (21-28) Arterial Blood Base Excess -4mmol/L (-3-3) FiO2 32 White Blood Count 5.1x10^3/uL (4.0-11.0) Red Blood Count 4.45x10^6/uL (3.50-5.40) Hemoglobin 12.5g/dL (12.0-15.5) Hematocrit 37.6% (36.0-47.0) Mean Corpuscular Volume 84fL (79-100) Mean Corpuscular Hemoglobin 28pg (25-35) Mean Corpuscular Hemoglobin Concent 33g/dL (31-37) Red Cell Distribution Width 14.8% (11.5-14.5) Platelet Count 59x10^3/uL (140-400) Neutrophils (%) (Auto) 91% (31-73) Lymphocytes (%) (Auto) 3% (24-48) Monocytes (%) (Auto) 4% (0-9) Eosinophils (%) (Auto) 1% (0-3) Basophils (%) (Auto) 0% (0-3) Neutrophils # (Auto) 4.6x10^3uL (1.8-7.7) Lymphocytes # (Auto) 0.2x10^3/uL (1.0-4.8) Monocytes # (Auto) 0.2x10^3/uL (0.0-1.1) Eosinophils # (Auto) 0.0x10^3/uL (0.0-0.7) Basophils # (Auto) 0.0x10^3/uL (0.0-0.2) Sodium Level 131mmol/L (136-145) Potassium Level 4.2mmol/L (3.5-5.1) Chloride Level 98mmol/L (98-107) Carbon Dioxide Level 22mmol/L (21-32) Anion Gap 11 (6-14) Blood Urea Nitrogen 36mg/dL (7-20) Creatinine 1.8mg/dL (0.6-1.0) Estimated GFR (Cockcroft-Gault) 28.2 BUN/Creatinine Ratio 20 (6-20) Glucose Level 235mg/dL (70-99) Calcium Level 9.4mg/dL (8.5-10.1) Total Bilirubin 0.8mg/dL (0.2-1.0) Aspartate Amino Transf (AST/SGOT) 104U/L (15-37) Alanine Aminotransferase (ALT/SGPT) 88U/L (14-59) Alkaline Phosphatase 114U/L (46-116) Total Protein 6.8g/dL (6.4-8.2) Albumin 2.2g/dL (3.4-5.0) Albumin/Globulin Ratio 0.5 (1.0-1.7) Triglycerides Level 191mg/dL (0-150) Cholesterol Level 115mg/dL (0-200) LDL Cholesterol, Calculated 70mg/dL (0-100) VLDL Cholesterol, Calculated 38mg/dL (0-40) HDL Cholesterol 7mg/dL (40-60) Cholesterol/HDL Ratio 16.4 Laboratory Tests Test 09/10/16 10:45 09/10/16 11:14 09/10/16 16:23 09/10/16 19:00 Influenza Type A Antigen Negative (NEGATIVE) Influenza Type B Antigen Negative (NEGATIVE) Glucose (Fingerstick) 295mg/dL (70-99) 368mg/dL (70-99) Lactic Acid Level 2.1mmol/L (0.4-2.0) Test 09/10/16 20:42 09/11/16 01:30 09/11/16 03:19 09/11/16 05:55 Glucose (Fingerstick) 269mg/dL (70-99) 223mg/dL (70-99) O2 Saturation 98% (92-99) Arterial Blood pH 7.36 (7.35-7.45) Arterial Blood pCO2 at Patient Temp 37mmHg (35-46) Arterial Blood pO2 at Patient Temp 107mmHg (65-108) Arterial Blood HCO3 21mmol/L (21-28) Arterial Blood Base Excess -4mmol/L (-3-3) FiO2 32 White Blood Count 5.1x10^3/uL (4.0-11.0) Red Blood Count 4.45x10^6/uL (3.50-5.40) Hemoglobin 12.5g/dL (12.0-15.5) Hematocrit 37.6% (36.0-47.0) Mean Corpuscular Volume 84fL (79-100) Mean Corpuscular Hemoglobin 28pg (25-35) Mean Corpuscular Hemoglobin Concent 33g/dL (31-37) Red Cell Distribution Width 14.8% (11.5-14.5) Platelet Count 59x10^3/uL (140-400) Neutrophils (%) (Auto) 91% (31-73) Lymphocytes (%) (Auto) 3% (24-48) Monocytes (%) (Auto) 4% (0-9) Eosinophils (%) (Auto) 1% (0-3) Basophils (%) (Auto) 0% (0-3) Neutrophils # (Auto) 4.6x10^3uL (1.8-7.7) Lymphocytes # (Auto) 0.2x10^3/uL (1.0-4.8) Monocytes # (Auto) 0.2x10^3/uL (0.0-1.1) Eosinophils # (Auto) 0.0x10^3/uL (0.0-0.7) Basophils # (Auto) 0.0x10^3/uL (0.0-0.2) Sodium Level 131mmol/L (136-145) Potassium Level 4.2mmol/L (3.5-5.1) Chloride Level 98mmol/L (98-107) Carbon Dioxide Level 22mmol/L (21-32) Anion Gap 11 (6-14) Blood Urea Nitrogen 36mg/dL (7-20) Creatinine 1.8mg/dL (0.6-1.0) Estimated GFR (Cockcroft-Gault) 28.2 BUN/Creatinine Ratio 20 (6-20) Glucose Level 235mg/dL (70-99) Calcium Level 9.4mg/dL (8.5-10.1) Total Bilirubin 0.8mg/dL (0.2-1.0) Aspartate Amino Transf (AST/SGOT) 104U/L (15-37) Alanine Aminotransferase (ALT/SGPT) 88U/L (14-59) Alkaline Phosphatase 114U/L (46-116) Total Protein 6.8g/dL (6.4-8.2) Albumin 2.2g/dL (3.4-5.0) Albumin/Globulin Ratio 0.5 (1.0-1.7) Triglycerides Level 191mg/dL (0-150) Cholesterol Level 115mg/dL (0-200) LDL Cholesterol, Calculated 70mg/dL (0-100) VLDL Cholesterol, Calculated 38mg/dL (0-40) HDL Cholesterol 7mg/dL (40-60) Cholesterol/HDL Ratio 16.4 Test 09/11/16 08:04 Glucose (Fingerstick) 178mg/dL (70-99) Images Images CXR reviewed personally and no PNA Assessment/Plan Assessment/Plan Impression: - Thrombocytopenia - Early stage endometrial cancer resected 2014 at [facility] - GNR bacteremia - Elevated LFTs - AMINTA - Urinary incontinence s/p interstim placement - Hypoxic respiratory failure Recommend: Thrombocytopenia probably DIC or reactive in setting of gram-negative sepsis. Other cell lines are intact, arguing against a primary bone marrow failure process. Underlying ITP or other platelet anomaly certainly is possible as well. Current issues are not likely related to history of endometrial cancer given stage of disease at time of resection, but if other teams concerned about etiology for her multiple issues, re-staging with CT CAP is reasonable. Recommend: - Check DIC panel. - If coagulopathic, give IV vitamin K and trend. - Transfuse cryoprecipitate to fibrinogen >100 if decreased. - If steroids indicated, this would also provide information about possible ITP. - Safe to provide DVT PPx as long as platelets >50k. - If platelets fail to improve with improvement in underlying illness, then would consider additional work-up. My partner Dr Mejia will take over tomorrow, follow labs, and comment as necessary. Please call with questions or concerns. TOM US MD Sep 11, 2016 10:07
[2016-09-11] MEDS ORDERED: ALBUTEROL SULFATE 2.5 MG/3 ML NEBU. NEB PRN ×2 (12:00)
[2016-09-11] MEDS ORDERED: IPRATRPIUM/ALBUTEROL 0.5/2.5MG 3 ML NEBU. NEB PRN (12:00)
--- NOTE | 2016-09-11 12:10 | PDOC ---
PULMONARY PROGRESS NOTES Subjective episodes of shaking with blue discoloration and dyspnea last night sleepy , did not sleep well last night gram negative bacteremia Vitals Vital Signs Date Time Temp Pulse Resp B/P Pulse Ox O2 Delivery O2 Flow Rate FiO2 09/11/16 11:33 94 09/11/16 11:30 Nasal Cannula 4.0 09/11/16 09:35 72 124/66 09/11/16 07:00 98.2 22 98.2 General: Lethargic Lungs: Clear Cardiovascular: S1 Abdomen: Soft Extremities: No Edema Skin: Warm Labs Laboratory Tests Test 09/09/16 19:20 09/09/16 20:00 09/09/16 22:52 09/10/16 03:00 White Blood Count 4.0x10^3/uL (4.0-11.0) Red Blood Count 4.58x10^6/uL (3.50-5.40) Hemoglobin 12.8g/dL (12.0-15.5) Hematocrit 39.3% (36.0-47.0) Mean Corpuscular Volume 86fL (79-100) Mean Corpuscular Hemoglobin 28pg (25-35) Mean Corpuscular Hemoglobin Concent 33g/dL (31-37) Red Cell Distribution Width 14.2% (11.5-14.5) Platelet Count 59x10^3/uL (140-400) Neutrophils (%) (Auto) 92% (31-73) Lymphocytes (%) (Auto) 4% (24-48) Monocytes (%) (Auto) 3% (0-9) Eosinophils (%) (Auto) 1% (0-3) Basophils (%) (Auto) 0% (0-3) Neutrophils # (Auto) 3.7x10^3uL (1.8-7.7) Lymphocytes # (Auto) 0.2x10^3/uL (1.0-4.8) Monocytes # (Auto) 0.1x10^3/uL (0.0-1.1) Eosinophils # (Auto) 0.1x10^3/uL (0.0-0.7) Basophils # (Auto) 0.0x10^3/uL (0.0-0.2) Segmented Neutrophils % 87% (35-66) Band Neutrophils % 7% (0-9) Lymphocytes % 3% (24-48) Monocytes % 2% (0-10) Eosinophils % 1% (0-5) Platelet Estimate Decreased (ADEQUATE) Large Platelets Occ Giant Platelets Sodium Level 134mmol/L (136-145) Potassium Level 4.2mmol/L (3.5-5.1) Chloride Level 98mmol/L (98-107) Carbon Dioxide Level 21mmol/L (21-32) Anion Gap 15 (6-14) Blood Urea Nitrogen 31mg/dL (7-20) Creatinine 1.6mg/dL (0.6-1.0) Estimated GFR (Cockcroft-Gault) 32.2 Glucose Level 354mg/dL (70-99) Lactic Acid Level 1.9mmol/L (0.4-2.0) Calcium Level 9.3mg/dL (8.5-10.1) Total Bilirubin 0.7mg/dL (0.2-1.0) Direct Bilirubin 0.4mg/dL (0.0-0.2) Aspartate Amino Transf (AST/SGOT) 96U/L (15-37) Alanine Aminotransferase (ALT/SGPT) 83U/L (14-59) Alkaline Phosphatase 105U/L (46-116) Troponin I Quantitative 0.414ng/mL (0.000-0.055) 0.262ng/mL (0.000-0.055) GV-Ezc-D-Type Natriuretic Peptide 2638pg/mL (0-124) Total Protein 6.5g/dL (6.4-8.2) Albumin 2.7g/dL (3.4-5.0) Lipase 274U/L (73-393) Urine Collection Type Unknown Urine Color Yellow Urine Clarity Cloudy Urine pH 5.5 Urine Specific [place] >=1.030 Urine Protein 100mg/dL (NEG-TRACE) Urine Glucose (UA) >=1000mg/dL (NEG) Urine Ketones (Stick) 15mg/dL (NEG) Urine Blood Large (NEG) Urine Nitrite Negative (NEG) Urine Bilirubin Negative (NEG) Urine Urobilinogen Dipstick 1.0mg/dL (0.2 mg/dL) Urine Leukocyte Esterase Small (NEG) Urine RBC 1-2/HPF (0-2) Urine WBC >40/HPF (0-4) Urine Squamous Epithelial Cells Mod/LPF Urine Bacteria Moderate/HPF (0-FEW) Glucose (Fingerstick) 320mg/dL (70-99) Test 09/10/16 05:00 09/10/16 08:20 09/10/16 08:41 09/10/16 10:45 White Blood Count 5.3x10^3/uL (4.0-11.0) Red Blood Count 4.48x10^6/uL (3.50-5.40) Hemoglobin 12.6g/dL (12.0-15.5) Hematocrit 38.1% (36.0-47.0) Mean Corpuscular Volume 85fL (79-100) Mean Corpuscular Hemoglobin 28pg (25-35) Mean Corpuscular Hemoglobin Concent 33g/dL (31-37) Red Cell Distribution Width 14.3% (11.5-14.5) Platelet Count 56x10^3/uL (140-400) Neutrophils (%) (Auto) 86% (31-73) Lymphocytes (%) (Auto) 7% (24-48) Monocytes (%) (Auto) 7% (0-9) Eosinophils (%) (Auto) 1% (0-3) Basophils (%) (Auto) 0% (0-3) Neutrophils # (Auto) 4.6x10^3uL (1.8-7.7) Lymphocytes # (Auto) 0.4x10^3/uL (1.0-4.8) Monocytes # (Auto) 0.4x10^3/uL (0.0-1.1) Eosinophils # (Auto) 0.0x10^3/uL (0.0-0.7) Basophils # (Auto) 0.0x10^3/uL (0.0-0.2) Sodium Level 136mmol/L (136-145) Potassium Level 4.2mmol/L (3.5-5.1) Chloride Level 99mmol/L (98-107) Carbon Dioxide Level 25mmol/L (21-32) Anion Gap 12 (6-14) Blood Urea Nitrogen 32mg/dL (7-20) Creatinine 1.7mg/dL (0.6-1.0) Estimated GFR (Cockcroft-Gault) 30.1 Glucose Level 338mg/dL (70-99) Calcium Level 9.0mg/dL (8.5-10.1) Troponin I Quantitative 0.205ng/mL (0.000-0.055) Glucose (Fingerstick) 312mg/dL (70-99) Influenza Type A Antigen Negative (NEGATIVE) Influenza Type B Antigen Negative (NEGATIVE) Test 09/10/16 11:14 09/10/16 16:23 09/10/16 19:00 09/10/16 20:42 Glucose (Fingerstick) 295mg/dL (70-99) 368mg/dL (70-99) 269mg/dL (70-99) Lactic Acid Level 2.1mmol/L (0.4-2.0) Test 09/11/16 01:30 09/11/16 03:19 09/11/16 05:55 09/11/16 08:04 Glucose (Fingerstick) 223mg/dL (70-99) 178mg/dL (70-99) O2 Saturation 98% (92-99) Arterial Blood pH 7.36 (7.35-7.45) Arterial Blood pCO2 at Patient Temp 37mmHg (35-46) Arterial Blood pO2 at Patient Temp 107mmHg (65-108) Arterial Blood HCO3 21mmol/L (21-28) Arterial Blood Base Excess -4mmol/L (-3-3) FiO2 32 White Blood Count 5.1x10^3/uL (4.0-11.0) Red Blood Count 4.45x10^6/uL (3.50-5.40) Hemoglobin 12.5g/dL (12.0-15.5) Hematocrit 37.6% (36.0-47.0) Mean Corpuscular Volume 84fL (79-100) Mean Corpuscular Hemoglobin 28pg (25-35) Mean Corpuscular Hemoglobin Concent 33g/dL (31-37) Red Cell Distribution Width 14.8% (11.5-14.5) Platelet Count 59x10^3/uL (140-400) Neutrophils (%) (Auto) 91% (31-73) Lymphocytes (%) (Auto) 3% (24-48) Monocytes (%) (Auto) 4% (0-9) Eosinophils (%) (Auto) 1% (0-3) Basophils (%) (Auto) 0% (0-3) Neutrophils # (Auto) 4.6x10^3uL (1.8-7.7) Lymphocytes # (Auto) 0.2x10^3/uL (1.0-4.8) Monocytes # (Auto) 0.2x10^3/uL (0.0-1.1) Eosinophils # (Auto) 0.0x10^3/uL (0.0-0.7) Basophils # (Auto) 0.0x10^3/uL (0.0-0.2) Sodium Level 131mmol/L (136-145) Potassium Level 4.2mmol/L (3.5-5.1) Chloride Level 98mmol/L (98-107) Carbon Dioxide Level 22mmol/L (21-32) Anion Gap 11 (6-14) Blood Urea Nitrogen 36mg/dL (7-20) Creatinine 1.8mg/dL (0.6-1.0) Estimated GFR (Cockcroft-Gault) 28.2 BUN/Creatinine Ratio 20 (6-20) Glucose Level 235mg/dL (70-99) Calcium Level 9.4mg/dL (8.5-10.1) Total Bilirubin 0.8mg/dL (0.2-1.0) Aspartate Amino Transf (AST/SGOT) 104U/L (15-37) Alanine Aminotransferase (ALT/SGPT) 88U/L (14-59) Alkaline Phosphatase 114U/L (46-116) Total Protein 6.8g/dL (6.4-8.2) Albumin 2.2g/dL (3.4-5.0) Albumin/Globulin Ratio 0.5 (1.0-1.7) Triglycerides Level 191mg/dL (0-150) Cholesterol Level 115mg/dL (0-200) LDL Cholesterol, Calculated 70mg/dL (0-100) VLDL Cholesterol, Calculated 38mg/dL (0-40) HDL Cholesterol 7mg/dL (40-60) Cholesterol/HDL Ratio 16.4 Laboratory Tests Test 09/10/16 16:23 09/10/16 19:00 09/10/16 20:42 09/11/16 01:30 Glucose (Fingerstick) 368mg/dL (70-99) 269mg/dL (70-99) 223mg/dL (70-99) Lactic Acid Level 2.1mmol/L (0.4-2.0) Test 09/11/16 03:19 09/11/16 05:55 09/11/16 08:04 O2 Saturation 98% (92-99) Arterial Blood pH 7.36 (7.35-7.45) Arterial Blood pCO2 at Patient Temp 37mmHg (35-46) Arterial Blood pO2 at Patient Temp 107mmHg (65-108) Arterial Blood HCO3 21mmol/L (21-28) Arterial Blood Base Excess -4mmol/L (-3-3) FiO2 32 White Blood Count 5.1x10^3/uL (4.0-11.0) Red Blood Count 4.45x10^6/uL (3.50-5.40) Hemoglobin 12.5g/dL (12.0-15.5) Hematocrit 37.6% (36.0-47.0) Mean Corpuscular Volume 84fL (79-100) Mean Corpuscular Hemoglobin 28pg (25-35) Mean Corpuscular Hemoglobin Concent 33g/dL (31-37) Red Cell Distribution Width 14.8% (11.5-14.5) Platelet Count 59x10^3/uL (140-400) Neutrophils (%) (Auto) 91% (31-73) Lymphocytes (%) (Auto) 3% (24-48) Monocytes (%) (Auto) 4% (0-9) Eosinophils (%) (Auto) 1% (0-3) Basophils (%) (Auto) 0% (0-3) Neutrophils # (Auto) 4.6x10^3uL (1.8-7.7) Lymphocytes # (Auto) 0.2x10^3/uL (1.0-4.8) Monocytes # (Auto) 0.2x10^3/uL (0.0-1.1) Eosinophils # (Auto) 0.0x10^3/uL (0.0-0.7) Basophils # (Auto) 0.0x10^3/uL (0.0-0.2) Sodium Level 131mmol/L (136-145) Potassium Level 4.2mmol/L (3.5-5.1) Chloride Level 98mmol/L (98-107) Carbon Dioxide Level 22mmol/L (21-32) Anion Gap 11 (6-14) Blood Urea Nitrogen 36mg/dL (7-20) Creatinine 1.8mg/dL (0.6-1.0) Estimated GFR (Cockcroft-Gault) 28.2 BUN/Creatinine Ratio 20 (6-20) Glucose Level 235mg/dL (70-99) Calcium Level 9.4mg/dL (8.5-10.1) Total Bilirubin 0.8mg/dL (0.2-1.0) Aspartate Amino Transf (AST/SGOT) 104U/L (15-37) Alanine Aminotransferase (ALT/SGPT) 88U/L (14-59) Alkaline Phosphatase 114U/L (46-116) Total Protein 6.8g/dL (6.4-8.2) Albumin 2.2g/dL (3.4-5.0) Albumin/Globulin Ratio 0.5 (1.0-1.7) Triglycerides Level 191mg/dL (0-150) Cholesterol Level 115mg/dL (0-200) LDL Cholesterol, Calculated 70mg/dL (0-100) VLDL Cholesterol, Calculated 38mg/dL (0-40) HDL Cholesterol 7mg/dL (40-60) Cholesterol/HDL Ratio 16.4 Glucose (Fingerstick) 178mg/dL (70-99) Medications Active Scripts Medications Dose Route/Sig Days Date Category Bupropion Hcl Sr (Bupropion Hcl) 100 Mg Tablet.er 75 Mg PO BID 09/10/16 Reported Humalog Kwikpen (Insulin Lispro) 200 Unit/1 Ml Insuln.pen 20 Unit SQ TIDWMEALS 09/10/16 Reported Toujeo Solostar (Insulin Glargine,Hum.rec.anlog) 300 Unit/1 Ml Insuln.pen 38 Unit SQ HS PRN 09/10/16 Reported Metformin Hcl 1,000 Mg Tablet 1 Tab PO BID 09/10/16 Reported Levothyroxine Sodium 200 Mcg Tablet 250 Mcg PO DAILYAC 09/10/16 Reported Magnesium Oxide 400 Mg Tablet 1 Tab PO BID 09/10/16 Reported Aspir 81 (Aspirin) 81 Mg Tablet.dr 1 Tab PO DAILY 09/10/16 Reported Losartan-Hctz 100-12.5 Mg Tab (Losartan/Hydrochlorothiazide) 1 Each Tablet 09/09/16 Reported Rosuvastatin Calcium 20 Mg Tablet 20 Mg 09/09/16 Reported Metoprolol Succinate ( Xl ) (Metoprolol Succinate) 100 Mg Tab.er.24h 100 Mg 09/09/16 Reported Omeprazole 40 Mg Capsule.dr 40 Mg 09/09/16 Reported Escitalopram Oxalate 10 Mg Tablet 20 Mg PO 01/24/14 Reported Norvasc (Amlodipine Besylate) 10 Mg Tablet 10 Mg PO DAILY07 09/05/13 Reported Impression . 1. Acute hypoxic respiratory failure, etiology due to gram negative sepsis( bacteremia/UTI).. She has a clear chest x-ray. Echocardiogram with normal ejection fraction. V/Q scan is normal. She does have a fever and thrombocytopenia. 2. GRAM NEGATIVE BACTEREMIA/SEPSIS 3. Acute kidney injury. Could be related dehydration. Lactic acid is normal. 4. Mildly increased troponin level. 5. No significant history of tobacco use. 6. History of obstructive sleep apnea on home CPAP. 7. No evidence of pulmonary embolism by V/Q scan. 8. Episodes of peripheral cyanosis, thrombocytopenia, uremia, intermittent encephalopathy, suspect TTP Plan . 1. From a pulmonary standpoint, she does not need anticoagulation, specially in the setting of thrombocytopenia 2. The patient has previous history of stents. I would recommend Cardiology followup and recommendation. 3. Continue with empiric antibiotic per ID. follow BC/Urine cultures 4. Episodes of peripheral cyanosis, thrombocytopenia, uremia, intermittent encephalopathy, ?TTP. Hematology following 5. Infectious Disease recommendations 6. Bronchodilators to continue. 7. Home CPAP. 9. We will follow along with you. d/w DILLON VILLAGRAN MD Sep 11, 2016 12:10
[2016-09-11] MEDS ORDERED: IV NORMAL SALINE 500ML BAG 500 ML IV ONE ×2 (12:30→15:15)
--- NOTE | 2016-09-11 12:42 | PDOC ---
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: Alert, seems oriented, no focal neurologic deficit SKIN: No rash IV: ok Labs Lab Laboratory Tests Test 09/10/16 16:23 09/10/16 19:00 09/10/16 20:42 09/11/16 01:30 Glucose (Fingerstick) 368mg/dL (70-99) 269mg/dL (70-99) 223mg/dL (70-99) Lactic Acid Level 2.1mmol/L (0.4-2.0) Test 09/11/16 03:19 09/11/16 05:55 09/11/16 08:04 09/11/16 12:10 O2 Saturation 98% (92-99) Arterial Blood pH 7.36 (7.35-7.45) Arterial Blood pCO2 at Patient Temp 37mmHg (35-46) Arterial Blood pO2 at Patient Temp 107mmHg (65-108) Arterial Blood HCO3 21mmol/L (21-28) Arterial Blood Base Excess -4mmol/L (-3-3) FiO2 32 White Blood Count 5.1x10^3/uL (4.0-11.0) Red Blood Count 4.45x10^6/uL (3.50-5.40) Hemoglobin 12.5g/dL (12.0-15.5) Hematocrit 37.6% (36.0-47.0) Mean Corpuscular Volume 84fL (79-100) Mean Corpuscular Hemoglobin 28pg (25-35) Mean Corpuscular Hemoglobin Concent 33g/dL (31-37) Red Cell Distribution Width 14.8% (11.5-14.5) Platelet Count 59x10^3/uL (140-400) Neutrophils (%) (Auto) 91% (31-73) Lymphocytes (%) (Auto) 3% (24-48) Monocytes (%) (Auto) 4% (0-9) Eosinophils (%) (Auto) 1% (0-3) Basophils (%) (Auto) 0% (0-3) Neutrophils # (Auto) 4.6x10^3uL (1.8-7.7) Lymphocytes # (Auto) 0.2x10^3/uL (1.0-4.8) Monocytes # (Auto) 0.2x10^3/uL (0.0-1.1) Eosinophils # (Auto) 0.0x10^3/uL (0.0-0.7) Basophils # (Auto) 0.0x10^3/uL (0.0-0.2) Sodium Level 131mmol/L (136-145) Potassium Level 4.2mmol/L (3.5-5.1) Chloride Level 98mmol/L (98-107) Carbon Dioxide Level 22mmol/L (21-32) Anion Gap 11 (6-14) Blood Urea Nitrogen 36mg/dL (7-20) Creatinine 1.8mg/dL (0.6-1.0) Estimated GFR (Cockcroft-Gault) 28.2 BUN/Creatinine Ratio 20 (6-20) Glucose Level 235mg/dL (70-99) Calcium Level 9.4mg/dL (8.5-10.1) Total Bilirubin 0.8mg/dL (0.2-1.0) Aspartate Amino Transf (AST/SGOT) 104U/L (15-37) Alanine Aminotransferase (ALT/SGPT) 88U/L (14-59) Alkaline Phosphatase 114U/L (46-116) Total Protein 6.8g/dL (6.4-8.2) Albumin 2.2g/dL (3.4-5.0) Albumin/Globulin Ratio 0.5 (1.0-1.7) Triglycerides Level 191mg/dL (0-150) Cholesterol Level 115mg/dL (0-200) LDL Cholesterol, Calculated 70mg/dL (0-100) VLDL Cholesterol, Calculated 38mg/dL (0-40) HDL Cholesterol 7mg/dL (40-60) Cholesterol/HDL Ratio 16.4 Glucose (Fingerstick) 178mg/dL (70-99) 161mg/dL (70-99) Objective Assessment GNR sepsis 09/09 - POA| -ID pending Acute hypoxic resp failure - no on Bipap. S/p Metoprolol and tighter Glucose control. LE dopplersw - Neg AMINTA DM GNR UTI 09/09. Proteus and Ecoli - Ecoli res to pip but not tested for Zosyn Proteus sens to Pip Plan Plan of Care Discont Zosyn Begin Meropenem incase Ecoli resistant or I to Zosyn but cannot tell without additional testing and do not want to waste time. F/u labs and cults Nystatin Powder Needs glycemic control D/w micro D/w D/w nursing THOM BLACKWOOD MD Sep 11, 2016 12:41"
[2016-09-11] MEDS ORDERED: MEROPENEM 500 MG in IV NORMAL SALINE 50ML 50 ML IV SCH (12:45)
[2016-09-11 12:55] LABS: INR 1.3 (0.8-1.1)
[2016-09-11] MEDS: MEROPENEM 500 MG in IV NORMAL SALINE 50ML 50 ML IV SCH ×2 (13:00→17:44)
--- NOTE | 2016-09-11 16:05 | PDOC2 ---
CONSULT Date of Consult Date of Consult DATE: 09/11/16 TIME: 16:03 Past Medical History Cardiovascular: HTN, Hyperlipidemia Pulmonary: No pertinent hx, Other CENTRAL NERVOUS SYSTEM: Migraine GI: GERD Heme/Onc: Cancer (Uterine cancer resected 2015) Hepatobiliary: Other Psych: No pertinent hx Musculoskeletal: Osteoarthritis Rheumatologic: No pertinent hx Infectious disease: No pertinent hx Renal/: No pertinent hx, Other Endocrine: Diabetes, Hypothyroidism Past Surgical History Past Surgical History: Cholecystectomy, Hysterectomy Family History Family History: Alcohol Abuse Social History No ALCOHOL: none Drugs: None Current Problem List Problem List Problems Medical Problems: (1) Hypoxia Status: Acute (2) Hypoxic Status: Acute (3) NSTEMI (non-ST elevated myocardial infarction) Status: Acute (4) Shortness of breath Status: Acute Current Medications Current Medications Current Medications Albuterol/ Ipratropium 3 ml 3 ml 1X ONCE NEB Last administered on 09/09/16 18 :47; Start 09/09/16 at 18:45; Stop 09/09/16 at 18:46; Status DC Sodium Chloride (Iv Sodium Chloride 0.9% 1000ml Bag) 1,000 ml @ 1,000 mls/hr 1X ONCE IV Last administered on 09/09/16 19:56; Start 09/09/16 at 18:45; Stop 09/09/16 at 19:44; Status DC Albuterol/ Ipratropium (Duoneb) 3 ml 1X ONCE NEB Last administered on 21:21; Start 09/09/16 at 20:15; Stop 09/09/16 at 20:16; Status DC Aspirin 324 mg 324 mg 1X ONCE PO Last administered on 09/09/16 20:57; Start 09/09/16 at 20:15; Stop 09/09/16 at 20:18; Status DC Piperacillin Sod/ Tazobactam Sod/ Sodium Chloride (Zosyn/Iv Sodium Chloride 0.9 % 50ml) 50 ml @ 100 mls/hr 1X ONCE IV Last administered on 09/09/16 20:57; Start 09/09/16 at 20:45; Stop 09/09/16 at 21:14; Status DC Furosemide (Lasix) 40 mg 1X ONCE IVP Last administered on 09/09/16 20:58; Start 09/09/16 at 20:45; Stop 09/09/16 at 20:46; Status DC Enoxaparin Sodium (Lovenox Per Pharmacy Treatment Dosing) 1 each PRN DAILY PRN MC SEE COMMENTS; Start 09/09/16 at 20:45; Stop 09/11/16 at 12:09; Status DC Enoxaparin Sodium (Lovenox 150mg Syringe) 130 mg Q12HR SQ ; Start 09/09/16 at 21 :00; Stop 09/11/16 at 12:09; Status DC Ondansetron HCl (Zofran) 4 mg PRN Q8HRS PRN IV NAUSEA/VOMITING; Start 09/09/16 at 20:45; Stop 09/10/16 at 20:44; Status DC Albuterol/ Ipratropium (Duoneb) 3 ml RTQID NEB Last administered on 09/11/16 11:24; Start 09/10/16 at 08:00; Stop 09/11/16 at 07:59; Status DC Acetaminophen 650 mg 650 mg PRN Q6HRS PRN PO MILD PAIN / TEMP Last administered on 09/11/16 09:34; Start 09/10/16 at 06:15 Sodium Chloride 1,000 ml @ 100 mls/hr Q10H IV Last administered on 09/11/16 12:17; Start 09/10/16 at 12:30 Piperacillin Sod/ Tazobactam Sod/ Sodium Chloride (Zosyn/Iv Sodium Chloride 0.9 % 50ml) 50 ml @ 100 mls/hr Q6HRS IV Last administered on 09/11/16 12:18; Start 09/10/16 at 13:30; Stop 09/11/16 at 12:46; Status DC Amlodipine Besylate (Norvasc) 10 mg DAILY07 PO Last administered on 09/11/16 09:35; Start 09/10/16 at 14:30; Stop 09/11/16 at 12:26; Status DC Aspirin (Ecotrin) 81 mg DAILY PO ; Start 09/10/16 at 14:30 Bupropion HCl (Wellbutrin Xl) 150 mg DAILY PO Last administered on 09/11/16 09 :35; Start 09/11/16 at 09:00 Escitalopram Oxalate (Lexapro) 20 mg DAILY PO Last administered on 09/11/16 09 :36; Start 09/10/16 at 14:30 Magnesium Oxide (Magnesium Oxide) 400 mg BID PO Last administered on 09/11/16 09:35; Start 09/10/16 at 21:00 Metoprolol Succinate (Toprol Xl) 100 mg DAILY PO Last administered on 09:35; Start 09/10/16 at 14:30; Stop 09/11/16 at 12:26; Status DC Non-Formulary Medication 38 unit HS PRN SQ SEE COMMENTS; Start 09/10/16 at 13: 45; Stop 09/10/16 at 13:45; Status DC Insulin Aspart (Novolog) 20 units TIDAC SQ Last administered on 09/11/16 09:44 ; Start 09/10/16 at 16:30 Levothyroxine Sodium (Synthroid) 250 mcg DAILY07 PO Last administered on 09:35; Start 09/10/16 at 14:30 Insulin Detemir (Levemir) 38 units QHS SQ Last administered on 09/10/16 21:25 ; Start 09/10/16 at 21:00 Albuterol/ Ipratropium (Duoneb) 3 ml RTQID NEB Last administered on 09/11/16 15:22; Start 09/11/16 at 12:00 Albuterol/ Ipratropium (Duoneb) 3 ml PRN Q2HR PRN NEB SHORTNESS OF BREATH; Start 09/11/16 at 12:00; Stop 09/11/16 at 12:02; Status DC Albuterol Sulfate (Ventolin Neb Soln) 2.5 mg PRN Q2HR PRN NEB WHEEZING; Start 09/11/16 at 12:00; Status Cancel Albuterol Sulfate 2.5 mg 2.5 mg PRN Q2HRS PRN NEB SHORTNESS OF BREATH; Start at 12:00 Sodium Chloride (Iv Sodium Chloride 0.9% 500ml Bag) 500 ml @ 500 mls/hr 1X ONCE IV Last administered on 09/11/16 12:30; Start 09/11/16 at 12:30; Stop 06/18 at 13:29; Status DC Metoprolol Succinate 50 mg 50 mg DAILY PO ; Start 09/12/16 at 09:00 Meropenem 500 mg/ Sodium Chloride 50 ml @ 100 mls/hr Q8HRS IV ; Start 09/11/16 at 12:45; Stop 09/11/16 at 12:46; Status DC Meropenem/Sodium Chloride (Merrem/Iv Sodium Chloride 0.9% 50ml) 50 ml @ 100 mls /hr Q6HRS IV Last administered on 09/11/16t 13:00; Start 09/11/16 at 13:00 Hydrocortisone Sodium Succinate 100 mg 100 mg Q8HRS IV ; Start 09/11/16 at 15:15 Sodium Chloride (Iv Sodium Chloride 0.9% 500ml Bag) 500 ml @ 500 mls/hr 1X ONCE IV ; Start 09/11/16 at 15:15; Stop 09/11/16 at 16:14 Active Scripts Active Reported Bupropion Hcl Sr (Bupropion Hcl) 100 Mg Tablet.er 75 Mg PO BID Humalog Kwikpen (Insulin Lispro) 200 Unit/1 Ml Insuln.pen 20 Unit SQ TIDWMEALS Toujeo Solostar (Insulin Glargine,Hum.rec.anlog) 300 Unit/1 Ml Insuln.pen 38 Unit SQ HS PRN Metformin Hcl 1,000 Mg Tablet 1 Tab PO BID Levothyroxine Sodium 200 Mcg Tablet 250 Mcg PO DAILYAC Magnesium Oxide 400 Mg Tablet 1 Tab PO BID Aspir 81 (Aspirin) 81 Mg Tablet. 1 Tab PO DAILY Losartan-Hctz 100-12.5 Mg Tab (Losartan/Hydrochlorothiazide) 1 Each Tablet Rosuvastatin Calcium 20 Mg Tablet 20 Mg Metoprolol Succinate ( Xl ) (Metoprolol Succinate) 100 Mg Tab.er.24h 100 Mg Omeprazole 40 Mg Capsule.dr 40 Mg Escitalopram Oxalate 10 Mg Tablet 20 Mg PO Norvasc (Amlodipine Besylate) 10 Mg Tablet 10 Mg PO DAILY07 Allergies Allergies: Coded Allergies: morphine (Verified Allergy, Intermediate, 10/08/14) lovastatin (Verified Allergy, Unknown, 10/14/14) CAUSES MUSCLE SPASMS Vitals VITALS Vital Signs Date Time Temp Pulse Resp B/P Pulse Ox O2 Delivery O2 Flow Rate FiO2 09/11/16 15:18 95 09/11/16 14:45 61 104/57 09/11/16 11:50 98.7 23 BiPAP/CPAP 98.7 09/11/16 11:30 4.0 Labs Labs Laboratory Tests Test 09/09/16 19:20 3/10/17 20:00 09/09/16 22:52 09/10/16 03:00 White Blood Count 4.0x10^3/uL (4.0-11.0) Red Blood Count 4.58x10^6/uL (3.50-5.40) Hemoglobin 12.8g/dL (12.0-15.5) Hematocrit 39.3% (36.0-47.0) Mean Corpuscular Volume 86fL (79-100) Mean Corpuscular Hemoglobin 28pg (25-35) Mean Corpuscular Hemoglobin Concent 33g/dL (31-37) Red Cell Distribution Width 14.2% (11.5-14.5) Platelet Count 59x10^3/uL (140-400) Neutrophils (%) (Auto) 92% (31-73) Lymphocytes (%) (Auto) 4% (24-48) Monocytes (%) (Auto) 3% (0-9) Eosinophils (%) (Auto) 1% (0-3) Basophils (%) (Auto) 0% (0-3) Neutrophils # (Auto) 3.7x10^3uL (1.8-7.7) Lymphocytes # (Auto) 0.2x10^3/uL (1.0-4.8) Monocytes # (Auto) 0.1x10^3/uL (0.0-1.1) Eosinophils # (Auto) 0.1x10^3/uL (0.0-0.7) Basophils # (Auto) 0.0x10^3/uL (0.0-0.2) Segmented Neutrophils % 87% (35-66) Band Neutrophils % 7% (0-9) Lymphocytes % 3% (24-48) Monocytes % 2% (0-10) Eosinophils % 1% (0-5) Platelet Estimate Decreased (ADEQUATE) Large Platelets Occ Giant Platelets Sodium Level 134mmol/L (136-145) Potassium Level 4.2mmol/L (3.5-5.1) Chloride Level 98mmol/L (98-107) Carbon Dioxide Level 21mmol/L (21-32) Anion Gap 15 (6-14) Blood Urea Nitrogen 31mg/dL (7-20) Creatinine 1.6mg/dL (0.6-1.0) Estimated GFR (Cockcroft-Gault) 32.2 Glucose Level 354mg/dL (70-99) Lactic Acid Level 1.9mmol/L (0.4-2.0) Calcium Level 9.3mg/dL (8.5-10.1) Total Bilirubin 0.7mg/dL (0.2-1.0) Direct Bilirubin 0.4mg/dL (0.0-0.2) Aspartate Amino Transf (AST/SGOT) 96U/L (15-37) Alanine Aminotransferase (ALT/SGPT) 83U/L (14-59) Alkaline Phosphatase 105U/L (46-116) Troponin I Quantitative 0.414ng/mL (0.000-0.055) 0.262ng/mL (0.000-0.055) LY-Qzm-J-Type Natriuretic Peptide 2638pg/mL (0-124) Total Protein 6.5g/dL (6.4-8.2) Albumin 2.7g/dL (3.4-5.0) Lipase 274U/L (73-393) Urine Collection Type Unknown Urine Color Yellow Urine Clarity Cloudy Urine pH 5.5 Urine Specific [place] >=1.030 Urine Protein 100mg/dL (NEG-TRACE) Urine Glucose (UA) >=1000mg/dL (NEG) Urine Ketones (Stick) 15mg/dL (NEG) Urine Blood Large (NEG) Urine Nitrite Negative (NEG) Urine Bilirubin Negative (NEG) Urine Urobilinogen Dipstick 1.0mg/dL (0.2 mg/dL) Urine Leukocyte Esterase Small (NEG) Urine RBC 1-2/HPF (0-2) Urine WBC >40/HPF (0-4) Urine Squamous Epithelial Cells Mod/LPF Urine Bacteria Moderate/HPF (0-FEW) Glucose (Fingerstick) 320mg/dL (70-99) Test 09/10/16 05:00 09/10/16 08:20 09/10/16 08:41 09/10/16 10:45 White Blood Count 5.3x10^3/uL (4.0-11.0) Red Blood Count 4.48x10^6/uL (3.50-5.40) Hemoglobin 12.6g/dL (12.0-15.5) Hematocrit 38.1% (36.0-47.0) Mean Corpuscular Volume 85fL (79-100) Mean Corpuscular Hemoglobin 28pg (25-35) Mean Corpuscular Hemoglobin Concent 33g/dL (31-37) Red Cell Distribution Width 14.3% (11.5-14.5) Platelet Count 56x10^3/uL (140-400) Neutrophils (%) (Auto) 86% (31-73) Lymphocytes (%) (Auto) 7% (24-48) Monocytes (%) (Auto) 7% (0-9) Eosinophils (%) (Auto) 1% (0-3) Basophils (%) (Auto) 0% (0-3) Neutrophils # (Auto) 4.6x10^3uL (1.8-7.7) Lymphocytes # (Auto) 0.4x10^3/uL (1.0-4.8) Monocytes # (Auto) 0.4x10^3/uL (0.0-1.1) Eosinophils # (Auto) 0.0x10^3/uL (0.0-0.7) Basophils # (Auto) 0.0x10^3/uL (0.0-0.2) Sodium Level 136mmol/L (136-145) Potassium Level 4.2mmol/L (3.5-5.1) Chloride Level 99mmol/L (98-107) Carbon Dioxide Level 25mmol/L (21-32) Anion Gap 12 (6-14) Blood Urea Nitrogen 32mg/dL (7-20) Creatinine 1.7mg/dL (0.6-1.0) Estimated GFR (Cockcroft-Gault) 30.1 Glucose Level 338mg/dL (70-99) Calcium Level 9.0mg/dL (8.5-10.1) Troponin I Quantitative 0.205ng/mL (0.000-0.055) Glucose (Fingerstick) 312mg/dL (70-99) Influenza Type A Antigen Negative (NEGATIVE) Influenza Type B Antigen Negative (NEGATIVE) Test 09/10/16 11:14 09/10/16 16:23 09/10/16 19:00 09/10/16 20:42 Glucose (Fingerstick) 295mg/dL (70-99) 368mg/dL (70-99) 269mg/dL (70-99) Lactic Acid Level 2.1mmol/L (0.4-2.0) Test 09/11/16 01:30 09/11/16 03:19 09/11/16 05:55 09/11/16 08:04 Glucose (Fingerstick) 223mg/dL (70-99) 178mg/dL (70-99) O2 Saturation 98% (92-99) Arterial Blood pH 7.36 (7.35-7.45) Arterial Blood pCO2 at Patient Temp 37mmHg (35-46) Arterial Blood pO2 at Patient Temp 107mmHg (65-108) Arterial Blood HCO3 21mmol/L (21-28) Arterial Blood Base Excess -4mmol/L (-3-3) FiO2 32 White Blood Count 5.1x10^3/uL (4.0-11.0) Red Blood Count 4.45x10^6/uL (3.50-5.40) Hemoglobin 12.5g/dL (12.0-15.5) Hematocrit 37.6% (36.0-47.0) Mean Corpuscular Volume 84fL (79-100) Mean Corpuscular Hemoglobin 28pg (25-35) Mean Corpuscular Hemoglobin Concent 33g/dL (31-37) Red Cell Distribution Width 14.8% (11.5-14.5) Platelet Count 59x10^3/uL (140-400) Neutrophils (%) (Auto) 91% (31-73) Lymphocytes (%) (Auto) 3% (24-48) Monocytes (%) (Auto) 4% (0-9) Eosinophils (%) (Auto) 1% (0-3) Basophils (%) (Auto) 0% (0-3) Neutrophils # (Auto) 4.6x10^3uL (1.8-7.7) Lymphocytes # (Auto) 0.2x10^3/uL (1.0-4.8) Monocytes # (Auto) 0.2x10^3/uL (0.0-1.1) Eosinophils # (Auto) 0.0x10^3/uL (0.0-0.7) Basophils # (Auto) 0.0x10^3/uL (0.0-0.2) Sodium Level 131mmol/L (136-145) Potassium Level 4.2mmol/L (3.5-5.1) Chloride Level 98mmol/L (98-107) Carbon Dioxide Level 22mmol/L (21-32) Anion Gap 11 (6-14) Blood Urea Nitrogen 36mg/dL (7-20) Creatinine 1.8mg/dL (0.6-1.0) Estimated GFR (Cockcroft-Gault) 28.2 BUN/Creatinine Ratio 20 (6-20) Glucose Level 235mg/dL (70-99) Calcium Level 9.4mg/dL (8.5-10.1) Total Bilirubin 0.8mg/dL (0.2-1.0) Aspartate Amino Transf (AST/SGOT) 104U/L (15-37) Alanine Aminotransferase (ALT/SGPT) 88U/L (14-59) Alkaline Phosphatase 114U/L (46-116) Total Protein 6.8g/dL (6.4-8.2) Albumin 2.2g/dL (3.4-5.0) Albumin/Globulin Ratio 0.5 (1.0-1.7) Triglycerides Level 191mg/dL (0-150) Cholesterol Level 115mg/dL (0-200) LDL Cholesterol, Calculated 70mg/dL (0-100) VLDL Cholesterol, Calculated 38mg/dL (0-40) HDL Cholesterol 7mg/dL (40-60) Cholesterol/HDL Ratio 16.4 Test 09/11/16 12:10 09/11/16 12:13 Glucose (Fingerstick) 161mg/dL (70-99) Prothrombin Time 15.0SEC (11.7-14.0) Prothromb Time International Ratio 1.3 (0.8-1.1) Activated Partial Thromboplast Time 35SEC (24-38) Fibrinogen 779mg/dL (200-440) D-Dimer (Barbara) 3.56ug/mlFEU (0.00-0.50) Laboratory Tests Test 09/10/16 16:23 09/10/16 19:00 09/10/16 20:42 09/11/16 01:30 Glucose (Fingerstick) 368mg/dL (70-99) 269mg/dL (70-99) 223mg/dL (70-99) Lactic Acid Level 2.1mmol/L (0.4-2.0) Test 09/11/16 03:19 09/11/16 05:55 09/11/16 08:04 09/11/16 12:10 O2 Saturation 98% (92-99) Arterial Blood pH 7.36 (7.35-7.45) Arterial Blood pCO2 at Patient Temp 37mmHg (35-46) Arterial Blood pO2 at Patient Temp 107mmHg (65-108) Arterial Blood HCO3 21mmol/L (21-28) Arterial Blood Base Excess -4mmol/L (-3-3) FiO2 32 White Blood Count 5.1x10^3/uL (4.0-11.0) Red Blood Count 4.45x10^6/uL (3.50-5.40) Hemoglobin 12.5g/dL (12.0-15.5) Hematocrit 37.6% (36.0-47.0) Mean Corpuscular Volume 84fL (79-100) Mean Corpuscular Hemoglobin 28pg (25-35) Mean Corpuscular Hemoglobin Concent 33g/dL (31-37) Red Cell Distribution Width 14.8% (11.5-14.5) Platelet Count 59x10^3/uL (140-400) Neutrophils (%) (Auto) 91% (31-73) Lymphocytes (%) (Auto) 3% (24-48) Monocytes (%) (Auto) 4% (0-9) Eosinophils (%) (Auto) 1% (0-3) Basophils (%) (Auto) 0% (0-3) Neutrophils # (Auto) 4.6x10^3uL (1.8-7.7) Lymphocytes # (Auto) 0.2x10^3/uL (1.0-4.8) Monocytes # (Auto) 0.2x10^3/uL (0.0-1.1) Eosinophils # (Auto) 0.0x10^3/uL (0.0-0.7) Basophils # (Auto) 0.0x10^3/uL (0.0-0.2) Sodium Level 131mmol/L (136-145) Potassium Level 4.2mmol/L (3.5-5.1) Chloride Level 98mmol/L (98-107) Carbon Dioxide Level 22mmol/L (21-32) Anion Gap 11 (6-14) Blood Urea Nitrogen 36mg/dL (7-20) Creatinine 1.8mg/dL (0.6-1.0) Estimated GFR (Cockcroft-Gault) 28.2 BUN/Creatinine Ratio 20 (6-20) Glucose Level 235mg/dL (70-99) Calcium Level 9.4mg/dL (8.5-10.1) Total Bilirubin 0.8mg/dL (0.2-1.0) Aspartate Amino Transf (AST/SGOT) 104U/L (15-37) Alanine Aminotransferase (ALT/SGPT) 88U/L (14-59) Alkaline Phosphatase 114U/L (46-116) Total Protein 6.8g/dL (6.4-8.2) Albumin 2.2g/dL (3.4-5.0) Albumin/Globulin Ratio 0.5 (1.0-1.7) Triglycerides Level 191mg/dL (0-150) Cholesterol Level 115mg/dL (0-200) LDL Cholesterol, Calculated 70mg/dL (0-100) VLDL Cholesterol, Calculated 38mg/dL (0-40) HDL Cholesterol 7mg/dL (40-60) Cholesterol/HDL Ratio 16.4 Glucose (Fingerstick) 178mg/dL (70-99) 161mg/dL (70-99) Test 09/11/16 12:13 Prothrombin Time 15.0SEC (11.7-14.0) Prothromb Time International Ratio 1.3 (0.8-1.1) Activated Partial Thromboplast Time 35SEC (24-38) Fibrinogen 779mg/dL (200-440) D-Dimer (Barbara) 3.56ug/mlFEU (0.00-0.50) Assessment/Plan Assessment/Plan RENAL CONSULT / LORELEI Dictated. # [id number] UZIEL MOSELEY MD Sep 11, 2016 16:05
[2016-09-11] MEDS: HYDROCORTISONE SOD SUCC/PF 100 MG/2 ML VIAL. IV SCH ×2 (16:34→21:21)
[2016-09-11] MEDS ORDERED: ALBUMIN HUMAN 25% 50 ML IV ONE (17:00)
[2016-09-11 17:15] LABS: BILIRUBIN,URINE SMALL (NEG); GLUCOSE,URINE NEGATIVE (NEG); NITRITE,URINE NEGATIVE (NEG); PROTEIN,URINE 30 mg/dL (NEG-TRACE)
[2016-09-11 17:23] LABS: BACTERIA,URINE FEW /HPF (0-FEW); SQUAMOUS EPITHELIAL CELL,UR MANY /LPF; WBC,URINE 20-40 /HPF (0-4)
[2016-09-11] MEDS: OXYCODONE IR 5 MG TABLET. PO PRN (18:30)
[2016-09-11] MEDS: INSULIN DETEMIR 300 UNITS/3 ML INSULN.PEN. SQ SCH (21:33)
[2016-09-12] MEDS: MEROPENEM 500 MG in IV NORMAL SALINE 50ML 50 ML IV SCH ×5 (01:04→23:28)
--- NOTE | 2016-09-12 01:51 | CONS ---
DATE OF CONSULTATION: REASON FOR CONSULTATION: Acute renal failure. HISTORY OF PRESENT ILLNESS: The patient is a 66-year-old morbidly obese lady with hypertension and type 2 diabetes. Possibly has stage II CKD, although she is unaware of any previous kidney issues. Hospitalized because of shortness of breath. Diagnosed with possible viral upper respiratory infection. Some concerns about a PE, but so far has had a normal VQ scan and venous Doppler which were negative. Last March, she had an echocardiogram showing an ejection fraction of 55-60%. Cardiology still not convinced that she does not have PE. Pulmonary is already involved and I have recommended toning down on anticoagulation given her thrombocytopenia. The cause of thrombocytopenia is unclear, possibly idiopathic. She follows with Dr. Mirian Antunez at [facility]. She is denying any chest pains. Shortness of breath of slightly better. She does use a CPAP at home. She also denies any cough at the present time, but has had what she described as "a low grade fever and mild cough at home." No hemoptysis. No dysphagia or odynophagia. No urinary symptoms. PAST MEDICAL HISTORY: Significant for: 1. Hypertension. 2. Type 2 diabetes. 3. Obstructive sleep apnea with obesity hypoventilation. 4. Possible atherosclerotic heart disease, although the patient is very patchy on the details. 5. Degenerative joint disease. 6. Hypothyroidism. 7. Thrombocytopenia. PAST SURGICAL HISTORY: Previous cardiac catheterization, details are pending. REVIEW OF SYSTEMS: As above, otherwise negative on a 10-point scale. FAMILY HISTORY: No premature heart disease or kidney failure. MEDICATIONS AND ALLERGIES: Reviewed. PHYSICAL EXAMINATION: GENERAL: Middle-aged lady who appears in no distress. VITAL SIGNS: Stable. She is afebrile. HEENT: Pupils are reactive. Tongue midline. NECK: Supple. No JVD or masses. LUNGS: Decreased bases. No rhonchi, rales or wheezing. CARDIOVASCULAR: Distant heart sounds. No gallop, no rub. ABDOMEN: Portly, soft, nontender. No obvious masses. EXTREMITIES: No edema. NEUROLOGIC: She is awake and alert, in no distress, good csr retail, no obvious focal neurological changes. LABORATORY DATA: Reviewed. IMPRESSION: Creatinine was 0.9 to 0.1 about 8 months ago. IMPRESSION: Acute renal failure, mostly renal hypoperfusion with decreased effective circulatory volume. Currently, her blood pressures are running in the 90s/50s. She probably needs to maintain a decent intravascular volume. Ejection fraction is ____-60%. She may have some mild right-sided heart failure. Dyspnea workup per Pulmonary and Cardiology. Would add some albumin to support to enhance colloidal support for blood pressure. Renal perfusion once resumed adequately should improve the renal functions. We will obtain a kidney ultrasound. Urine electrolytes. Monitor intake and output closely. Discussed with patient and . Thank you very much for the consultation. I appreciate the referral. We will follow. UZIEL MOSELEY MD DR: SHIRLEY/crys JOB#: [id number] / [id number]
[2016-09-12 03:12] VITALS: BP 117/61
[2016-09-12] MEDS: IV NORMAL SALINE 1000ML BAG 1,000 ML IV SCH ×3 (04:43→23:28)
[2016-09-12 05:24] LABS: BASO % 0 % (0-3); EOS % 1 % (0-3); HEMATOCRIT 36.4 % (36.0-47.0); HEMOGLOBIN 11.9 g/dL (12.0-15.5); LYMPH # 0.7 x10^3/uL (1.0-4.8); LYMPH % 9 % (24-48); MEAN CORPUSCULAR HEMOGLOBIN 28 pg (25-35); MEAN CORPUSCULAR HGB CONC 33 g/dL (31-37); MEAN CORPUSCULAR VOLUME 84 fL (79-100); MONO % 6 % (0-9); NEUT % 84 % (31-73); PLATELET COUNT 58 x10^3/uL (140-400); RED BLOOD COUNT 4.31 x10^6/uL (3.50-5.40); RED CELL DISTRIBUTION WIDTH 14.9 % (11.5-14.5); WHITE BLOOD COUNT 7.8 x10^3/uL (4.0-11.0)
[2016-09-12 05:50] LABS: ALBUMIN 1.9 g/dL (3.4-5.0); ALBUMIN/GLOBULIN RATIO 0.4 (1.0-1.7); CALCIUM 9.1 mg/dL (8.5-10.1); CREATININE 1.6 mg/dL (0.6-1.0); GFR 32.2; POTASSIUM 4.8 mmol/L (3.5-5.1); TOTAL BILIRUBIN 1.4 mg/dL (0.2-1.0); TOTAL PROTEIN 6.8 g/dL (6.4-8.2)
[2016-09-12 05:57] LABS: MAGNESIUM 2.3 mg/dL (1.8-2.4); PHOSPHORUS 4.4 mg/dL (2.6-4.7); URIC ACID 4.9 mg/dL (2.6-6.0)
[2016-09-12] MEDS: LEVOTHYROXINE 125 MCG TABLET PO SCH (06:17)
[2016-09-12] MEDS: HYDROCORTISONE SOD SUCC/PF 100 MG/2 ML VIAL. IV SCH (06:17)
[2016-09-12 07:00] VITALS: BP 114/66
--- NOTE | 2016-09-12 08:19 | RAD ---
Renal ultrasound, 09/11/2016: History: Acute renal failure The right kidney measures 11.9 cm in length while the left kidney measures 11.0 cm. The kidneys were not optimally visualized due to the patient's size. There is a vague 3 cm hypoechoic area in the midportion of left kidney. Internal echoes may be artifactual. No right renal mass is seen. The right renal pelvis is mildly prominent. No abnormal perinephric process is seen. The urinary bladder is collapsed and poorly defined. IMPRESSION: 1. Probable small left renal cyst or mass. 2. Mild prominence of the right renal collecting system. 3. CT scanning may be useful for further evaluation, if clinically indicated.
--- NOTE | 2016-09-12 08:20 | RAD ---
Ankle-brachial indices, 09/11/2016: History: Toe discoloration Resting HILLARY measurements were obtained. The right HILLARY is 1.03 while the left HILLARY is 1.05. IMPRESSION: Normal resting ankle-brachial indices.
[2016-09-12] MEDS: METOPROLOL SUCC 24HR ER 50 MG TAB.ER.24H. PO SCH (08:21)
[2016-09-12] MEDS: buPROPion XL 150 MG TAB.ER.24H PO SCH (08:21)
[2016-09-12] MEDS: MAGNESIUM OXIDE 400 MG TABLET PO SCH ×2 (08:21→21:10)
[2016-09-12] MEDS: ESCITALOPRAM 10 MG TABLET. PO SCH (08:21)
[2016-09-12] MEDS: ASPIRIN ENTERIC COATED 81 MG TABLET.DR. PO SCH (08:21)
[2016-09-12] MEDS: INSULIN ASPART 300 UNITS/3 ML INSULN.PEN SQ SCH ×3 (08:29→17:56)
--- NOTE | 2016-09-12 08:36 | PDOC ---
Infectious Disease Note Subjective Subjective So much better today ROS ROS GEN: Denies fevers, chills, sweats HEENT: Denies blurred vision, sore throat CV: Denies chest pain RESP: Denies shortness of air, cough GI: Denies n/v/d NEURO: Denies confusion, dizziness MSK: Denies weakness, joint pain/swelling Vital Sign Vital Signs Vital Signs Date Time Temp Pulse Resp B/P Pulse Ox O2 Delivery O2 Flow Rate FiO2 09/12/16 08:21 49 114/66 09/12/16 03:12 97.4 20 95 BiPAP/CPAP 97.4 09/11/16 20:00 4.0 Physical Exam PHYSICAL EXAM GENERAL: NAD, Alert, obese HEENT: PERRL, OC/OP -dry NECK: Supple, no JVD, no LN LUNGS: Clear HEART: S1S2, no gallop, no murmur ABD: Soft, NT, no organomegaly, no rebound, obese EXT: No edema, no cyanosis CUSTOMER SERVICE REP: Alert, oriented x 3, no focal neurologic deficit SKIN: No rash IV: ok Labs Lab Laboratory Tests Test 09/11/16 12:10 09/11/16 12:13 09/11/16 16:40 09/11/16 16:44 Glucose (Fingerstick) 161mg/dL (70-99) 161mg/dL (70-99) Prothrombin Time 15.0SEC (11.7-14.0) Prothromb Time International Ratio 1.3 (0.8-1.1) Activated Partial Thromboplast Time 35SEC (24-38) Fibrinogen 779mg/dL (200-440) D-Dimer (Barbara) 3.56ug/mlFEU (0.00-0.50) Urine Collection Type Unknown Urine Color [place] Urine Clarity Cloudy Urine pH 6.0 Urine Specific [place] 1.015 Urine Protein 30mg/dL (NEG-TRACE) Urine Glucose (UA) Negativemg/dL (NEG) Urine Ketones (Stick) Negativemg/dL (NEG) Urine Blood Moderate (NEG) Urine Nitrite Negative (NEG) Urine Bilirubin Small (NEG) Urine Urobilinogen Dipstick 1.0mg/dL (0.2 mg/dL) Urine Leukocyte Esterase Large (NEG) Urine RBC 1-2/HPF (0-2) Urine WBC 20-40/HPF (0-4) Urine Squamous Epithelial Cells Many/LPF Urine Bacteria Few/HPF (0-FEW) Test 09/11/16 20:41 09/12/16 04:20 09/12/16 04:25 09/12/16 07:47 Glucose (Fingerstick) 201mg/dL (70-99) 318mg/dL (70-99) White Blood Count 7.8x10^3/uL (4.0-11.0) Red Blood Count 4.31x10^6/uL (3.50-5.40) Hemoglobin 11.9g/dL (12.0-15.5) Hematocrit 36.4% (36.0-47.0) Mean Corpuscular Volume 84fL (79-100) Mean Corpuscular Hemoglobin 28pg (25-35) Mean Corpuscular Hemoglobin Concent 33g/dL (31-37) Red Cell Distribution Width 14.9% (11.5-14.5) Platelet Count 58x10^3/uL (140-400) Neutrophils (%) (Auto) 84% (31-73) Lymphocytes (%) (Auto) 9% (24-48) Monocytes (%) (Auto) 6% (0-9) Eosinophils (%) (Auto) 1% (0-3) Basophils (%) (Auto) 0% (0-3) Neutrophils # (Auto) 6.5x10^3uL (1.8-7.7) Lymphocytes # (Auto) 0.7x10^3/uL (1.0-4.8) Monocytes # (Auto) 0.5x10^3/uL (0.0-1.1) Eosinophils # (Auto) 0.1x10^3/uL (0.0-0.7) Basophils # (Auto) 0.0x10^3/uL (0.0-0.2) Sodium Level 132mmol/L (136-145) Potassium Level 4.8mmol/L (3.5-5.1) Chloride Level 98mmol/L (98-107) Carbon Dioxide Level 19mmol/L (21-32) Anion Gap 15 (6-14) Blood Urea Nitrogen 43mg/dL (7-20) Creatinine 1.6mg/dL (0.6-1.0) Estimated GFR (Cockcroft-Gault) 32.2 BUN/Creatinine Ratio 27 (6-20) Glucose Level 320mg/dL (70-99) Uric Acid 4.9mg/dL (2.6-6.0) Calcium Level 9.1mg/dL (8.5-10.1) Phosphorus Level 4.4mg/dL (2.6-4.7) Magnesium Level 2.3mg/dL (1.8-2.4) Total Bilirubin 1.4mg/dL (0.2-1.0) Aspartate Amino Transf (AST/SGOT) 143U/L (15-37) Alanine Aminotransferase (ALT/SGPT) 116U/L (14-59) Alkaline Phosphatase 138U/L (46-116) Total Protein 6.8g/dL (6.4-8.2) Albumin 1.9g/dL (3.4-5.0) Albumin/Globulin Ratio 0.4 (1.0-1.7) Micro BLD CULT RESULT 1 Final Escherichia coli Recovered from aerobic and anaerobic bottles. BLD CULT RESULT 2 Final Proteus mirabilis Recovered from aerobic and anaerobic bottles. ANTIMICROBIAL SUSCEPTIBILITY Final Comment S = Susceptible; I = Intermediate; R = Resistant P = Positive; N = Negative MICS are expressed in micrograms per mL Antibiotic RSLT#1 RSLT#2 RSLT#3 RSLT#4 Amoxicillin/Clavulanic Acid S S Ampicillin R S Cefepime S S Ceftriaxone S S Cefuroxime S S Cephalothin S S Ciprofloxacin S S Ertapenem S S Gentamicin S S Imipenem S Levofloxacin S S Nitrofurantoin S R Piperacillin R S Tetracycline S R Tobramycin S S Objective Assessment Ecoli/Proteus sepsis 09/09 - POA Acute hypoxic resp failure - no on Bipap. S/p Metoprolol and tighter Glucose control. LE dopplers - Neg AMINTA DM UTI 09/09. Proteus and Ecoli - Ecoli res to pip but not tested for Zosyn Proteus sens to Pip Plan Plan of Care Cont Meropenem F/u labs and cults Nystatin Powder Incentive spirometer D/w nursing THOM BLACKWOOD MD Sep 12, 2016 08:36
[2016-09-12] MEDS: IPRATRPIUM/ALBUTEROL 0.5/2.5MG 3 ML NEBU. NEB SCH ×4 (08:46→19:48)
--- NOTE | 2016-09-12 11:32 | PDOC ---
Renal-Progress Notes Subjective Notes Notes NO COMPLAINTS History of Present Illness Hx of present illness STABLE Vitals Vitals Vital Signs Date Time Temp Pulse Resp B/P Pulse Ox O2 Delivery O2 Flow Rate FiO2 09/12/16 08:47 93 Nasal Cannula 3.0 09/12/16 08:21 49 114/66 09/12/16 07:00 97.6 21 97.6 Weight Weight [ ] I.O. Intake and Output Intake and Output 09/12/16 07:00 Intake Total 340 ml Output Total 200 ml Balance 140 ml Intake Oral 340 ml Output Urine Total 200 ml # Voids 2 Labs Labs Laboratory Tests Test 09/11/16 12:10 09/11/16 12:13 09/11/16 16:40 09/11/16 16:44 Glucose (Fingerstick) 161mg/dL (70-99) 161mg/dL (70-99) Prothrombin Time 15.0SEC (11.7-14.0) Prothromb Time International Ratio 1.3 (0.8-1.1) Activated Partial Thromboplast Time 35SEC (24-38) Fibrinogen 779mg/dL (200-440) D-Dimer (Barbara) 3.56ug/mlFEU (0.00-0.50) Urine Collection Type Unknown Urine Color Gita Urine Clarity Cloudy Urine pH 6.0 Urine Specific [place] 1.015 Urine Protein 30mg/dL (NEG-TRACE) Urine Glucose (UA) Negativemg/dL (NEG) Urine Ketones (Stick) Negativemg/dL (NEG) Urine Blood Moderate (NEG) Urine Nitrite Negative (NEG) Urine Bilirubin Small (NEG) Urine Urobilinogen Dipstick 1.0mg/dL (0.2 mg/dL) Urine Leukocyte Esterase Large (NEG) Urine RBC 1-2/HPF (0-2) Urine WBC 20-40/HPF (0-4) Urine Squamous Epithelial Cells Many/LPF Urine Bacteria Few/HPF (0-FEW) Test 09/11/16 20:41 09/12/16 04:20 09/12/16 04:25 09/12/16 07:47 Glucose (Fingerstick) 201mg/dL (70-99) 318mg/dL (70-99) White Blood Count 7.8x10^3/uL (4.0-11.0) Red Blood Count 4.31x10^6/uL (3.50-5.40) Hemoglobin 11.9g/dL (12.0-15.5) Hematocrit 36.4% (36.0-47.0) Mean Corpuscular Volume 84fL (79-100) Mean Corpuscular Hemoglobin 28pg (25-35) Mean Corpuscular Hemoglobin Concent 33g/dL (31-37) Red Cell Distribution Width 14.9% (11.5-14.5) Platelet Count 58x10^3/uL (140-400) Neutrophils (%) (Auto) 84% (31-73) Lymphocytes (%) (Auto) 9% (24-48) Monocytes (%) (Auto) 6% (0-9) Eosinophils (%) (Auto) 1% (0-3) Basophils (%) (Auto) 0% (0-3) Neutrophils # (Auto) 6.5x10^3uL (1.8-7.7) Lymphocytes # (Auto) 0.7x10^3/uL (1.0-4.8) Monocytes # (Auto) 0.5x10^3/uL (0.0-1.1) Eosinophils # (Auto) 0.1x10^3/uL (0.0-0.7) Basophils # (Auto) 0.0x10^3/uL (0.0-0.2) Sodium Level 132mmol/L (136-145) Potassium Level 4.8mmol/L (3.5-5.1) Chloride Level 98mmol/L (98-107) Carbon Dioxide Level 19mmol/L (21-32) Anion Gap 15 (6-14) Blood Urea Nitrogen 43mg/dL (7-20) Creatinine 1.6mg/dL (0.6-1.0) Estimated GFR (Cockcroft-Gault) 32.2 BUN/Creatinine Ratio 27 (6-20) Glucose Level 320mg/dL (70-99) Uric Acid 4.9mg/dL (2.6-6.0) Calcium Level 9.1mg/dL (8.5-10.1) Phosphorus Level 4.4mg/dL (2.6-4.7) Magnesium Level 2.3mg/dL (1.8-2.4) Total Bilirubin 1.4mg/dL (0.2-1.0) Aspartate Amino Transf (AST/SGOT) 143U/L (15-37) Alanine Aminotransferase (ALT/SGPT) 116U/L (14-59) Alkaline Phosphatase 138U/L (46-116) Total Protein 6.8g/dL (6.4-8.2) Albumin 1.9g/dL (3.4-5.0) Albumin/Globulin Ratio 0.4 (1.0-1.7) Micro Micro Microbiology 09/09/16 Blood Culture - Final, Complete 09/09/16 Blood Culture Result 1 (QUIQUE) - Final, Complete 09/09/16 Blood Culture Result 2 (QUIQUE) - Final, Complete 09/09/16 Urine Culture - Final, Complete 09/09/16 Urine Culture Result 1 (QUIQUE) - Final, Complete 09/09/16 Urine Culture Result 2 (QUIQUE) - Final, Complete 09/09/16 Antimicrobic Susceptibility - Final, Complete Review of Systems Constitutional: yes: alert, no symptom reported, weakness Physical Exam General Appearance: no apparent distress Skin: warm Respiratory: bilateral CTA Heart: S1S2, RRR Abdomen: soft Extremities: pulses present Neurology: alert Musculoskeletal: Osteoarthritis Assessment Assessment IMP AMINTA-STABLE WITH CR OF 1.6 SEPSIS PLAN ANTIBIOTICS CONT IVF'S ALPA BARBER MD Sep 12, 2016 11:32
[2016-09-12 11:42] VITALS: BP 102/59
--- NOTE | 2016-09-12 11:52 | PDOC ---
BRADY VILLALBA INSULATION INSPECTOR 09/12/16 1152: CARDIO Progress Notes Date and Time Date of Service 09/12/2016 Time of Evaluation 1152 Subjective Subjective: No Chest Pain, No Palpitations, No Dizziness, Other (c/o fatigue, cough and dsypnea) Vitals Vitals Vital Signs Date Time Temp Pulse Resp B/P Pulse Ox O2 Delivery O2 Flow Rate FiO2 09/12/16 11:42 60 22 102/59 95 Nasal Cannula 2.0 09/12/16 07:00 97.6 97.6 Weight Weight [ ] Input and Output Intake and Output Intake and Output 09/12/16 07:00 Intake Total 340 ml Output Total 200 ml Balance 140 ml Intake Oral 340 ml Output Urine Total 200 ml # Voids 2 Laboratory Labs Laboratory Tests Test 09/11/16 12:10 09/11/16 12:13 09/11/16 16:40 09/11/16 16:44 Glucose (Fingerstick) 161mg/dL (70-99) 161mg/dL (70-99) Prothrombin Time 15.0SEC (11.7-14.0) Prothromb Time International Ratio 1.3 (0.8-1.1) Activated Partial Thromboplast Time 35SEC (24-38) Fibrinogen 779mg/dL (200-440) D-Dimer (Barbara) 3.56ug/mlFEU (0.00-0.50) Urine Collection Type Unknown Urine Color Gita Urine Clarity Cloudy Urine pH 6.0 Urine Specific [place] 1.015 Urine Protein 30mg/dL (NEG-TRACE) Urine Glucose (UA) Negativemg/dL (NEG) Urine Ketones (Stick) Negativemg/dL (NEG) Urine Blood Moderate (NEG) Urine Nitrite Negative (NEG) Urine Bilirubin Small (NEG) Urine Urobilinogen Dipstick 1.0mg/dL (0.2 mg/dL) Urine Leukocyte Esterase Large (NEG) Urine RBC 1-2/HPF (0-2) Urine WBC 20-40/HPF (0-4) Urine Squamous Epithelial Cells Many/LPF Urine Bacteria Few/HPF (0-FEW) Test 09/11/16 20:41 09/12/16 04:20 09/12/16 04:25 09/12/16 07:47 Glucose (Fingerstick) 201mg/dL (70-99) 318mg/dL (70-99) White Blood Count 7.8x10^3/uL (4.0-11.0) Red Blood Count 4.31x10^6/uL (3.50-5.40) Hemoglobin 11.9g/dL (12.0-15.5) Hematocrit 36.4% (36.0-47.0) Mean Corpuscular Volume 84fL (79-100) Mean Corpuscular Hemoglobin 28pg (25-35) Mean Corpuscular Hemoglobin Concent 33g/dL (31-37) Red Cell Distribution Width 14.9% (11.5-14.5) Platelet Count 58x10^3/uL (140-400) Neutrophils (%) (Auto) 84% (31-73) Lymphocytes (%) (Auto) 9% (24-48) Monocytes (%) (Auto) 6% (0-9) Eosinophils (%) (Auto) 1% (0-3) Basophils (%) (Auto) 0% (0-3) Neutrophils # (Auto) 6.5x10^3uL (1.8-7.7) Lymphocytes # (Auto) 0.7x10^3/uL (1.0-4.8) Monocytes # (Auto) 0.5x10^3/uL (0.0-1.1) Eosinophils # (Auto) 0.1x10^3/uL (0.0-0.7) Basophils # (Auto) 0.0x10^3/uL (0.0-0.2) Sodium Level 132mmol/L (136-145) Potassium Level 4.8mmol/L (3.5-5.1) Chloride Level 98mmol/L (98-107) Carbon Dioxide Level 19mmol/L (21-32) Anion Gap 15 (6-14) Blood Urea Nitrogen 43mg/dL (7-20) Creatinine 1.6mg/dL (0.6-1.0) Estimated GFR (Cockcroft-Gault) 32.2 BUN/Creatinine Ratio 27 (6-20) Glucose Level 320mg/dL (70-99) Uric Acid 4.9mg/dL (2.6-6.0) Calcium Level 9.1mg/dL (8.5-10.1) Phosphorus Level 4.4mg/dL (2.6-4.7) Magnesium Level 2.3mg/dL (1.8-2.4) Total Bilirubin 1.4mg/dL (0.2-1.0) Aspartate Amino Transf (AST/SGOT) 143U/L (15-37) Alanine Aminotransferase (ALT/SGPT) 116U/L (14-59) Alkaline Phosphatase 138U/L (46-116) Total Protein 6.8g/dL (6.4-8.2) Albumin 1.9g/dL (3.4-5.0) Albumin/Globulin Ratio 0.4 (1.0-1.7) Microbiology Micro Microbiology 09/09/16 Blood Culture - Final, Complete 09/09/16 Blood Culture Result 1 (QUIQUE) - Final, Complete 09/09/16 Blood Culture Result 2 (QUIQUE) - Final, Complete 09/09/16 Urine Culture - Final, Complete 09/09/16 Urine Culture Result 1 (QUIQUE) - Final, Complete 09/09/16 Urine Culture Result 2 (QUIQUE) - Final, Complete 09/09/16 Antimicrobic Susceptibility - Final, Complete Review of Systems Constitutional: yes: alert, no symptom reported, weakness Physical Exam HEENT: Neck Supple W Full Motion Chest: Symmetric LUNGS: Other (exp wheezing) Heart: RRR, no murmurs Abdomen: Other (truncal obesity) Neurology: alert, oriented Assessment Assessment 1) Hypoxia, tachycardia, newly elevated PA pressures, elevated troponin, elevated BNP ? of PE; VQ scan low prob @ [facility]; can not CTa due to renal function LE venous study negative for DVT 2) Acute kidney injury--possibly pre-renal 3) Mild transaminase elevation with otherwise normal liver synthetic function 4) Thrombocytopenia per Heme-Onc 5) sepsis e coli/proteus POA abx per ID ERIN HENRIQUEZ MD 09/12/16 1838: CARDIO Progress Notes Plan Plan Patient seen and examined. Agree with above nurse practitioner noted. No acute events overnight. Slowly recovering. Laboratory studies and diagnostic studies reviewed. On examination she appears fatigued. Mild rhonchi and rales. Morbid obesity. Medications reviewed. Continue supportive care. Noted mild to moderate descending aortic dilatation on echocardiogram and we will have this further evaluated on outpatient basis. Patient does not have a bicuspid valve and therefore this could be monitored closely on an outpatient basis. We will follow along. BRADY VILLALBA APRN Sep 12, 2016 11:52 ERIN HENRIQUEZ MD Sep 12, 2016 18:38
--- NOTE | 2016-09-12 11:58 | PDOC ---
Subjective: Subjective: Onc f/u- Thrombocytopenia Pt still with considerable fatigue. SOB unchanged. No CP, bleeding. Objective: Vital Signs: Vital Signs Date Time Temp Pulse Resp B/P Pulse Ox O2 Delivery O2 Flow Rate FiO2 09/12/16 11:42 60 22 102/59 95 Nasal Cannula 2.0 09/12/16 07:00 97.6 97.6 Physical Exam: Heart: Regular rate Extremities: No edema General: Alert, Oriented X3, No acute distress, Other (fatigued) Lungs: Other (no respiratory distress) Psych/Mental Status: Mental status NL, Mood NL Skin: Other (no bruising) Labs/Imaging: CBC stable- plt 58, otherwise WNL INR 1.3, fibrinogen 779 Blood cx reviewed Assessment/Plan A/P: 1. Thrombocytopenia unclear duration. Pt believes acute. Likely related to sepsis vx less likely ITP. 2. GNR bacteremia causing multiorgan failure- improving on abx. Plan: - Continue to follow CBC trend while admitted. No other acute interventions needed currently. MEDINA ENNIS DO Sep 12, 2016 11:58
--- NOTE | 2016-09-12 13:59 | PDOC ---
PROGRESS NOTES Chief Complaint Chief Complaint Sepsis ASSESSMENT AND PLAN: 1. Sepsis: GNR bacteremia: both E.coli and P.mirabilis identified. on [place]. ID service following. ?GI source 2. Acute hypoxic respiratory failure: VQ scan low prob. CXR neg, serology Flu A/B neg. hypoxia intermittent. suppl O2 3. CHF: chronic diastolic: no acute issues 4. KARENA with secondary pHTN: cont CPAP 5. Intermittent chest pain: resolved 5. DM2: poor control 7. 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 morbid obesity, BMI 49 9. Thrombocytopenia: stable. prob 2/2 sepsis, poss chronic ITP. TTP less likely given stability in plts and creat. will review smear. Hem service following 10. Dispo: transfer to med floor; OT/PT eval Vitals Vitals Vital Signs Date Time Temp Pulse Resp B/P Pulse Ox O2 Delivery O2 Flow Rate FiO2 09/12/16 12:14 95 Nasal Cannula 3.0 09/12/16 11:42 60 22 102/59 09/12/16 07:00 97.6 97.6 Physical Exam General: Alert, Oriented X3, No acute distress Heart: Regular rate Lungs: Clear Abdomen: Soft Extremities: No edema Skin: No rashes, Other (no bruising) Labs LABS Laboratory Tests Test 09/11/16 16:40 09/11/16 16:44 09/11/16 20:41 09/12/16 04:20 Urine Collection Type Unknown Urine Color Gita Urine Clarity Cloudy Urine pH 6.0 Urine Specific [place] 1.015 Urine Protein 30mg/dL (NEG-TRACE) Urine Glucose (UA) Negativemg/dL (NEG) Urine Ketones (Stick) Negativemg/dL (NEG) Urine Blood Moderate (NEG) Urine Nitrite Negative (NEG) Urine Bilirubin Small (NEG) Urine Urobilinogen Dipstick 1.0mg/dL (0.2 mg/dL) Urine Leukocyte Esterase Large (NEG) Urine RBC 1-2/HPF (0-2) Urine WBC 20-40/HPF (0-4) Urine Squamous Epithelial Cells Many/LPF Urine Bacteria Few/HPF (0-FEW) Glucose (Fingerstick) 161mg/dL (70-99) 201mg/dL (70-99) White Blood Count 7.8x10^3/uL (4.0-11.0) Red Blood Count 4.31x10^6/uL (3.50-5.40) Hemoglobin 11.9g/dL (12.0-15.5) Hematocrit 36.4% (36.0-47.0) Mean Corpuscular Volume 84fL (79-100) Mean Corpuscular Hemoglobin 28pg (25-35) Mean Corpuscular Hemoglobin Concent 33g/dL (31-37) Red Cell Distribution Width 14.9% (11.5-14.5) Platelet Count 58x10^3/uL (140-400) Neutrophils (%) (Auto) 84% (31-73) Lymphocytes (%) (Auto) 9% (24-48) Monocytes (%) (Auto) 6% (0-9) Eosinophils (%) (Auto) 1% (0-3) Basophils (%) (Auto) 0% (0-3) Neutrophils # (Auto) 6.5x10^3uL (1.8-7.7) Lymphocytes # (Auto) 0.7x10^3/uL (1.0-4.8) Monocytes # (Auto) 0.5x10^3/uL (0.0-1.1) Eosinophils # (Auto) 0.1x10^3/uL (0.0-0.7) Basophils # (Auto) 0.0x10^3/uL (0.0-0.2) Test 09/12/16 04:25 09/12/16 07:47 09/12/16 12:21 Sodium Level 132mmol/L (136-145) Potassium Level 4.8mmol/L (3.5-5.1) Chloride Level 98mmol/L (98-107) Carbon Dioxide Level 19mmol/L (21-32) Anion Gap 15 (6-14) Blood Urea Nitrogen 43mg/dL (7-20) Creatinine 1.6mg/dL (0.6-1.0) Estimated GFR (Cockcroft-Gault) 32.2 BUN/Creatinine Ratio 27 (6-20) Glucose Level 320mg/dL (70-99) Uric Acid 4.9mg/dL (2.6-6.0) Calcium Level 9.1mg/dL (8.5-10.1) Phosphorus Level 4.4mg/dL (2.6-4.7) Magnesium Level 2.3mg/dL (1.8-2.4) Total Bilirubin 1.4mg/dL (0.2-1.0) Aspartate Amino Transf (AST/SGOT) 143U/L (15-37) Alanine Aminotransferase (ALT/SGPT) 116U/L (14-59) Alkaline Phosphatase 138U/L (46-116) Total Protein 6.8g/dL (6.4-8.2) Albumin 1.9g/dL (3.4-5.0) Albumin/Globulin Ratio 0.4 (1.0-1.7) Glucose (Fingerstick) 318mg/dL (70-99) 288mg/dL (70-99) Review of Systems Review of Systems breathing improved. no new issues FRIDA CHRISTENSEN MD Sep 12, 2016 13:59
[2016-09-12 15:00] VITALS: BP 93/51
[2016-09-12 19:15] VITALS: BP 115/63
[2016-09-12] MEDS: INSULIN DETEMIR 300 UNITS/3 ML INSULN.PEN. SQ SCH (21:14)
[2016-09-12 23:30] VITALS: BP 139/68
[2016-09-13] VITALS (7 sets, daily range): BP systolic 94–150; BP diastolic 47–82
[2016-09-13] MEDS: MEROPENEM 500 MG in IV NORMAL SALINE 50ML 50 ML IV SCH ×3 (06:22→17:39)
[2016-09-13] MEDS: LEVOTHYROXINE 125 MCG TABLET PO SCH (06:22)
[2016-09-13] MEDS: IPRATRPIUM/ALBUTEROL 0.5/2.5MG 3 ML NEBU. NEB SCH ×4 (07:42→20:50)
[2016-09-13 07:51] LABS: CALCIUM 8.9 mg/dL (8.5-10.1); CREATININE 1.6 mg/dL (0.6-1.0); GFR 32.2; POTASSIUM 3.5 mmol/L (3.5-5.1)
[2016-09-13] MEDS: MAGNESIUM OXIDE 400 MG TABLET PO SCH ×2 (08:53→21:31)
[2016-09-13] MEDS: ESCITALOPRAM 10 MG TABLET. PO SCH (08:53)
[2016-09-13] MEDS: ASPIRIN ENTERIC COATED 81 MG TABLET.DR. PO SCH (08:53)
[2016-09-13] MEDS: buPROPion XL 150 MG TAB.ER.24H PO SCH (08:54)
[2016-09-13] MEDS: METOPROLOL SUCC 24HR ER 50 MG TAB.ER.24H. PO SCH (08:54)
--- NOTE | 2016-09-13 08:58 | PDOC ---
Infectious Disease Note Subjective Subjective So much better today but coughing ROS ROS GEN: Denies fevers, chills, sweats HEENT: Denies blurred vision, sore throat CV: Denies chest pain RESP: Denies shortness of air GI: Denies n/v/d NEURO: Denies confusion, dizziness MSK: Denies weakness, joint pain/swelling Vital Sign Vital Signs Vital Signs Date Time Temp Pulse Resp B/P Pulse Ox O2 Delivery O2 Flow Rate FiO2 09/13/16 07:42 99 Nasal Cannula 2.5 09/13/16 07:00 75 20 129/64 09/13/16 02:42 96.8 96.8 Physical Exam PHYSICAL EXAM GENERAL: NAD, Alert HEENT: PERRL, OC/OP - clear NECK: Supple, no JVD, no LN LUNGS: Clear HEART: S1S2, no gallop, no murmur ABD: Soft, NT, no organomegaly, no rebound, obese EXT: No edema, no cyanosis [employer]ING [employer]: Alert, oriented x 3, no focal neurologic deficit SKIN: No rash IV: ok Labs Lab Laboratory Tests Test 09/12/16 12:21 09/12/16 16:38 09/12/16 21:10 09/13/16 07:20 Glucose (Fingerstick) 288mg/dL (70-99) 285mg/dL (70-99) 327mg/dL (70-99) Sodium Level 137mmol/L (136-145) Potassium Level 3.5mmol/L (3.5-5.1) Chloride Level 104mmol/L (98-107) Carbon Dioxide Level 22mmol/L (21-32) Anion Gap 11 (6-14) Blood Urea Nitrogen 49mg/dL (7-20) Creatinine 1.6mg/dL (0.6-1.0) Estimated GFR (Cockcroft-Gault) 32.2 Glucose Level 217mg/dL (70-99) Calcium Level 8.9mg/dL (8.5-10.1) Test 09/13/16 07:56 Glucose (Fingerstick) 197mg/dL (70-99) Micro BLD CULT RESULT 1 Final Escherichia coli Recovered from aerobic and anaerobic bottles. BLD CULT RESULT 2 Final Proteus mirabilis Recovered from aerobic and anaerobic bottles. ANTIMICROBIAL SUSCEPTIBILITY Final Comment S = Susceptible; I = Intermediate; R = Resistant P = Positive; N = Negative MICS are expressed in micrograms per mL Antibiotic RSLT#1 RSLT#2 RSLT#3 RSLT#4 Amoxicillin/Clavulanic Acid S S Ampicillin R S Cefepime S S Ceftriaxone S S Cefuroxime S S Cephalothin S S Ciprofloxacin S S Ertapenem S S Gentamicin S S Imipenem S Levofloxacin S S Nitrofurantoin S R Piperacillin R S Tetracycline S R Tobramycin S S Objective Assessment Ecoli/Proteus sepsis 09/09 - POA Acute hypoxic resp failure - on NC S/p Metoprolol and tighter Glucose control. LE dopplers - Neg AMINTA - better DM UTI 09/09. Proteus and Ecoli - Ecoli res to pip but not tested for Zosyn Proteus sens to Pip Plan Plan of Care Cont Meropenem F/u labs and cults Nystatin Powder Await Pulm Follow up D/w THOM BLACKWOOD MD Sep 13, 2016 08:57
[2016-09-13] MEDS: INSULIN ASPART 300 UNITS/3 ML INSULN.PEN SQ SCH ×3 (08:59→16:30)
[2016-09-13] MEDS: ACETAMINOPHEN 325 MG TABLET. PO PRN ×2 (09:02→21:28)
--- NOTE | 2016-09-13 09:43 | PDOC ---
PULMONARY PROGRESS NOTES Subjective pt not more soa Vitals Vital Signs Date Time Temp Pulse Resp B/P Pulse Ox O2 Delivery O2 Flow Rate FiO2 09/13/16 08:54 88 129/64 09/13/16 07:42 99 Nasal Cannula 2.5 09/13/16 07:00 20 09/13/16 02:42 96.8 96.8 General: Lethargic Lungs: Clear Cardiovascular: S1 Abdomen: Soft Extremities: No Edema Skin: Warm Labs Laboratory Tests Test 09/11/16 12:10 09/11/16 12:13 09/11/16 16:40 09/11/16 16:44 Glucose (Fingerstick) 161mg/dL (70-99) 161mg/dL (70-99) Prothrombin Time 15.0SEC (11.7-14.0) Prothromb Time International Ratio 1.3 (0.8-1.1) Activated Partial Thromboplast Time 35SEC (24-38) Fibrinogen 779mg/dL (200-440) D-Dimer (Barbara) 3.56ug/mlFEU (0.00-0.50) Urine Collection Type Unknown Urine Color Gita Urine Clarity Cloudy Urine pH 6.0 Urine Specific [place] 1.015 Urine Protein 30mg/dL (NEG-TRACE) Urine Glucose (UA) Negativemg/dL (NEG) Urine Ketones (Stick) Negativemg/dL (NEG) Urine Blood Moderate (NEG) Urine Nitrite Negative (NEG) Urine Bilirubin Small (NEG) Urine Urobilinogen Dipstick 1.0mg/dL (0.2 mg/dL) Urine Leukocyte Esterase Large (NEG) Urine RBC 1-2/HPF (0-2) Urine WBC 20-40/HPF (0-4) Urine Squamous Epithelial Cells Many/LPF Urine Bacteria Few/HPF (0-FEW) Urine Random Creatinine 77.6mg/dL (Not Estab.) Urine Random Sodium <20mmol/L (Not Estab.) Test 09/11/16 20:41 09/12/16 04:20 09/12/16 04:25 09/12/16 07:47 Glucose (Fingerstick) 201mg/dL (70-99) 318mg/dL (70-99) White Blood Count 7.8x10^3/uL (4.0-11.0) Red Blood Count 4.31x10^6/uL (3.50-5.40) Hemoglobin 11.9g/dL (12.0-15.5) Hematocrit 36.4% (36.0-47.0) Mean Corpuscular Volume 84fL (79-100) Mean Corpuscular Hemoglobin 28pg (25-35) Mean Corpuscular Hemoglobin Concent 33g/dL (31-37) Red Cell Distribution Width 14.9% (11.5-14.5) Platelet Count 58x10^3/uL (140-400) Neutrophils (%) (Auto) 84% (31-73) Lymphocytes (%) (Auto) 9% (24-48) Monocytes (%) (Auto) 6% (0-9) Eosinophils (%) (Auto) 1% (0-3) Basophils (%) (Auto) 0% (0-3) Neutrophils # (Auto) 6.5x10^3uL (1.8-7.7) Lymphocytes # (Auto) 0.7x10^3/uL (1.0-4.8) Monocytes # (Auto) 0.5x10^3/uL (0.0-1.1) Eosinophils # (Auto) 0.1x10^3/uL (0.0-0.7) Basophils # (Auto) 0.0x10^3/uL (0.0-0.2) Sodium Level 132mmol/L (136-145) Potassium Level 4.8mmol/L (3.5-5.1) Chloride Level 98mmol/L (98-107) Carbon Dioxide Level 19mmol/L (21-32) Anion Gap 15 (6-14) Blood Urea Nitrogen 43mg/dL (7-20) Creatinine 1.6mg/dL (0.6-1.0) Estimated GFR (Cockcroft-Gault) 32.2 BUN/Creatinine Ratio 27 (6-20) Glucose Level 320mg/dL (70-99) Uric Acid 4.9mg/dL (2.6-6.0) Calcium Level 9.1mg/dL (8.5-10.1) Phosphorus Level 4.4mg/dL (2.6-4.7) Magnesium Level 2.3mg/dL (1.8-2.4) Total Bilirubin 1.4mg/dL (0.2-1.0) Aspartate Amino Transf (AST/SGOT) 143U/L (15-37) Alanine Aminotransferase (ALT/SGPT) 116U/L (14-59) Alkaline Phosphatase 138U/L (46-116) Total Protein 6.8g/dL (6.4-8.2) Albumin 1.9g/dL (3.4-5.0) Albumin/Globulin Ratio 0.4 (1.0-1.7) Test 09/12/16 12:21 09/12/16 16:38 09/12/16 21:10 09/13/16 07:20 Glucose (Fingerstick) 288mg/dL (70-99) 285mg/dL (70-99) 327mg/dL (70-99) Sodium Level 137mmol/L (136-145) Potassium Level 3.5mmol/L (3.5-5.1) Chloride Level 104mmol/L (98-107) Carbon Dioxide Level 22mmol/L (21-32) Anion Gap 11 (6-14) Blood Urea Nitrogen 49mg/dL (7-20) Creatinine 1.6mg/dL (0.6-1.0) Estimated GFR (Cockcroft-Gault) 32.2 Glucose Level 217mg/dL (70-99) Calcium Level 8.9mg/dL (8.5-10.1) Test 09/13/16 07:56 Glucose (Fingerstick) 197mg/dL (70-99) Laboratory Tests Test 09/12/16 12:21 09/12/16 16:38 09/12/16 21:10 09/13/16 07:20 Glucose (Fingerstick) 288mg/dL (70-99) 285mg/dL (70-99) 327mg/dL (70-99) Sodium Level 137mmol/L (136-145) Potassium Level 3.5mmol/L (3.5-5.1) Chloride Level 104mmol/L (98-107) Carbon Dioxide Level 22mmol/L (21-32) Anion Gap 11 (6-14) Blood Urea Nitrogen 49mg/dL (7-20) Creatinine 1.6mg/dL (0.6-1.0) Estimated GFR (Cockcroft-Gault) 32.2 Glucose Level 217mg/dL (70-99) Calcium Level 8.9mg/dL (8.5-10.1) Test 09/13/16 07:56 Glucose (Fingerstick) 197mg/dL (70-99) Medications Active Scripts Medications Dose Route/Sig Days Date Category Bupropion Hcl Sr (Bupropion Hcl) 100 Mg Tablet.er 75 Mg PO BID 09/10/16 Reported Humalog Kwikpen (Insulin Lispro) 200 Unit/1 Ml Insuln.pen 20 Unit SQ TIDWMEALS 09/10/16 Reported Toujeo Solostar (Insulin Glargine,Hum.rec.anlog) 300 Unit/1 Ml Insuln.pen 38 Unit SQ HS PRN 09/10/16 Reported Metformin Hcl 1,000 Mg Tablet 1 Tab PO BID 09/10/16 Reported Levothyroxine Sodium 200 Mcg Tablet 250 Mcg PO DAILYAC 09/10/16 Reported Magnesium Oxide 400 Mg Tablet 1 Tab PO BID 09/10/16 Reported Aspir 81 (Aspirin) 81 Mg Tablet.dr 1 Tab PO DAILY 09/10/16 Reported Losartan-Hctz 100-12.5 Mg Tab (Losartan/Hydrochlorothiazide) 1 Each Tablet 09/09/16 Reported Rosuvastatin Calcium 20 Mg Tablet 20 Mg 09/09/16 Reported Metoprolol Succinate ( Xl ) (Metoprolol Succinate) 100 Mg Tab.er.24h 100 Mg 09/09/16 Reported Omeprazole 40 Mg Capsule.dr 40 Mg 09/09/16 Reported Escitalopram Oxalate 10 Mg Tablet 20 Mg PO 01/24/14 Reported Norvasc (Amlodipine Besylate) 10 Mg Tablet 10 Mg PO DAILY07 09/05/13 Reported Impression . 1. Acute hypoxic respiratory failure, multifactorial improving 2. GRAM NEGATIVE BACTEREMIA/SEPSIS 3. Acute kidney injury, per nephro 4. Mildly increased troponin level. 5. No significant history of tobacco use. 6. History of obstructive sleep apnea on home CPAP. 7. No evidence of pulmonary embolism by V/Q scan. Plan . resp status is compensated antibx per ID home cpap LIVIER ROMAN MD Sep 13, 2016 09:43
[2016-09-13] MEDS: IV NORMAL SALINE 1000ML BAG 1,000 ML IV SCH (10:30)
--- NOTE | 2016-09-13 11:18 | PDOC ---
Renal-Progress Notes Subjective Notes Notes NO NEW COMPLAINTS History of Present Illness Hx of present illness NO CHANGE Vitals Vitals Vital Signs Date Time Temp Pulse Resp B/P Pulse Ox O2 Delivery O2 Flow Rate FiO2 09/13/16 10:39 98.1 65 18 100/49 93 BiPAP/CPAP 98.1 09/13/16 08:00 3.0 Weight Weight [ ] I.O. Intake and Output Intake and Output 09/13/16 07:00 Intake Total 850 ml Output Total 200 ml Balance 650 ml Intake Oral 350 ml IV Total 500 ml Output Urine Total 200 ml # Voids 5 Labs Labs Laboratory Tests Test 09/12/16 12:21 09/12/16 16:38 09/12/16 21:10 09/13/16 07:20 Glucose (Fingerstick) 288mg/dL (70-99) 285mg/dL (70-99) 327mg/dL (70-99) Sodium Level 137mmol/L (136-145) Potassium Level 3.5mmol/L (3.5-5.1) Chloride Level 104mmol/L (98-107) Carbon Dioxide Level 22mmol/L (21-32) Anion Gap 11 (6-14) Blood Urea Nitrogen 49mg/dL (7-20) Creatinine 1.6mg/dL (0.6-1.0) Estimated GFR (Cockcroft-Gault) 32.2 Glucose Level 217mg/dL (70-99) Calcium Level 8.9mg/dL (8.5-10.1) Test 09/13/16 07:56 Glucose (Fingerstick) 197mg/dL (70-99) Micro Micro Microbiology 09/09/16 Blood Culture - Final, Complete 09/09/16 Blood Culture Result 1 (QUIQUE) - Final, Complete 09/09/16 Blood Culture Result 2 (QUIQUE) - Final, Complete 09/09/16 Urine Culture - Final, Complete 09/09/16 Urine Culture Result 1 (QUIQUE) - Final, Complete 09/09/16 Urine Culture Result 2 (QUIQUE) - Final, Complete 09/09/16 Antimicrobic Susceptibility - Final, Complete Review of Systems Constitutional: yes: alert, no symptom reported, weakness Physical Exam General Appearance: no apparent distress Skin: warm Respiratory: bilateral CTA Heart: S1S2, RRR Abdomen: soft Extremities: pulses present Neurology: alert, oriented Musculoskeletal: Osteoarthritis Assessment Assessment IMP AMINTA-STABLE WITH CR OF 1.6 SEPSIS PLAN ANTIBIOTICS CONT IVF'S ALPA BARBER MD Sep 13, 2016 11:18
[2016-09-13] MEDS: OXYCODONE IR 5 MG TABLET. PO PRN (13:02)
--- NOTE | 2016-09-13 13:46 | PDOC ---
PROGRESS NOTES Chief Complaint Chief Complaint Sepsis ASSESSMENT AND PLAN: 1. Sepsis: GNR bacteremia: both E.coli and P.mirabilis identified. on Merrem. ID service following. 2. Acute hypoxic respiratory failure: VQ scan low prob. CXR neg, serology Flu A/B neg. hypoxia intermittent. suppl O2 3. KARENA with secondary pHTN: cont CPAP (pt now has her own machine and nasal mask) 4. Intermittent chest pain: resolved 5. CHF: chronic diastolic: no acute issues 5. DM2: poor control 7. 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 morbid obesity, BMI 49 9. Thrombocytopenia: stable. prob 2/2 sepsis, poss chronic ITP. TTP ruled out with neg smear (no schistocytes). Hem service following 10. Dispo: transfer to med floor; OT/PT eval Vitals Vitals Vital Signs Date Time Temp Pulse Resp B/P Pulse Ox O2 Delivery O2 Flow Rate FiO2 09/13/16 13:02 Room Air 09/13/16 11:47 93 09/13/16 10:39 98.1 65 18 100/49 98.1 09/13/16 08:00 3.0 Physical Exam General: Alert, Oriented X3, No acute distress Heart: Regular rate Lungs: Clear Abdomen: Normal bowel sounds, Soft, No tenderness Extremities: No edema Skin: No rashes, No significant lesion Labs LABS Laboratory Tests Test 09/12/16 16:38 09/12/16 21:10 09/13/16 07:20 09/13/16 07:56 Glucose (Fingerstick) 285mg/dL (70-99) 327mg/dL (70-99) 197mg/dL (70-99) Sodium Level 137mmol/L (136-145) Potassium Level 3.5mmol/L (3.5-5.1) Chloride Level 104mmol/L (98-107) Carbon Dioxide Level 22mmol/L (21-32) Anion Gap 11 (6-14) Blood Urea Nitrogen 49mg/dL (7-20) Creatinine 1.6mg/dL (0.6-1.0) Estimated GFR (Cockcroft-Gault) 32.2 Glucose Level 217mg/dL (70-99) Calcium Level 8.9mg/dL (8.5-10.1) Test 09/13/16 11:45 Glucose (Fingerstick) 133mg/dL (70-99) Review of Systems Review of Systems feels comfortable, using CPAP currently. no new issues FRIDA CHRISTENSEN MD Sep 13, 2016 13:46
[2016-09-13] MEDS: INSULIN DETEMIR 300 UNITS/3 ML INSULN.PEN. SQ SCH (21:34)
[2016-09-14 03:39] VITALS: BP 107/58
[2016-09-14] MEDS: MEROPENEM 500 MG in IV NORMAL SALINE 50ML 50 ML IV SCH ×3 (05:30)
[2016-09-14] MEDS: ACETAMINOPHEN 325 MG TABLET. PO PRN (06:02)
[2016-09-14] MEDS: LEVOTHYROXINE 125 MCG TABLET PO SCH (06:29)
[2016-09-14 07:00] VITALS: BP 110/54
[2016-09-14 07:05] LABS: BASO % 0 % (0-3); EOS % 1 % (0-3); HEMATOCRIT 34.5 % (36.0-47.0); HEMOGLOBIN 11.1 g/dL (12.0-15.5); LYMPH # 0.9 x10^3/uL (1.0-4.8); LYMPH % 8 % (24-48); MEAN CORPUSCULAR HEMOGLOBIN 27 pg (25-35); MEAN CORPUSCULAR HGB CONC 32 g/dL (31-37); MEAN CORPUSCULAR VOLUME 85 fL (79-100); MONO % 6 % (0-9); NEUT % 85 % (31-73); PLATELET COUNT 78 x10^3/uL (140-400); RED BLOOD COUNT 4.07 x10^6/uL (3.50-5.40)
[2016-09-14] MEDS: IPRATRPIUM/ALBUTEROL 0.5/2.5MG 3 ML NEBU. NEB SCH ×4 (07:15→20:32)
[2016-09-14] MEDS: INSULIN ASPART 300 UNITS/3 ML INSULN.PEN SQ SCH ×3 (07:30→16:30)
[2016-09-14 08:19] LABS: CALCIUM 8.8 mg/dL (8.5-10.1); CREATININE 1.4 mg/dL (0.6-1.0); GFR 37.6; POTASSIUM 3.7 mmol/L (3.5-5.1)
[2016-09-14] MEDS: buPROPion XL 150 MG TAB.ER.24H PO SCH (08:33)
[2016-09-14] MEDS: ASPIRIN ENTERIC COATED 81 MG TABLET.DR. PO SCH (08:33)
[2016-09-14] MEDS: METOPROLOL SUCC 24HR ER 50 MG TAB.ER.24H. PO SCH ×2 (08:34→08:36)
[2016-09-14] MEDS: ESCITALOPRAM 10 MG TABLET. PO SCH (08:34)
[2016-09-14] MEDS: MAGNESIUM OXIDE 400 MG TABLET PO SCH ×2 (08:34→21:16)
--- NOTE | 2016-09-14 08:36 | PDOC ---
Infectious Disease Note Subjective Subjective Better but still more comfortable with using her CPAP Less cough ROS ROS GEN: Denies fevers, chills, sweats HEENT: Denies blurred vision, sore throat CV: Denies chest pain RESP: Denies shortness of air, cough GI: Denies n/v/d NEURO: Denies confusion, dizziness MSK: Denies weakness, joint pain/swelling Vital Sign Vital Signs Vital Signs Date Time Temp Pulse Resp B/P Pulse Ox O2 Delivery O2 Flow Rate FiO2 09/14/16 07:19 94 BiPAP/CPAP 2.0 09/14/16 07:00 97.8 52 12 110/54 97.8 Physical Exam PHYSICAL EXAM GENERAL: NAD, Alert HEENT: PERRL, OC/OP - clear. CPAP NECK: Supple, no JVD, no LN LUNGS: Clear HEART: S1S2, no gallop, no murmur ABD: Soft, NT, no organomegaly, no rebound, obese EXT: No edema, no cyanosis RUBBER PROCESS HAND: Alert, oriented x 3, no focal neurologic deficit SKIN: No rash IV: ok Labs Lab Laboratory Tests Test 09/13/16 11:45 09/13/16 16:48 09/13/16 21:16 09/14/16 01:01 Glucose (Fingerstick) 133mg/dL (70-99) 115mg/dL (70-99) 108mg/dL (70-99) 96mg/dL (70-99) Test 09/14/16 06:35 09/14/16 07:38 09/14/16 07:57 White Blood Count 12.0x10^3/uL (4.0-11.0) Red Blood Count 4.07x10^6/uL (3.50-5.40) Hemoglobin 11.1g/dL (12.0-15.5) Hematocrit 34.5% (36.0-47.0) Mean Corpuscular Volume 85fL (79-100) Mean Corpuscular Hemoglobin 27pg (25-35) Mean Corpuscular Hemoglobin Concent 32g/dL (31-37) Red Cell Distribution Width 15.0% (11.5-14.5) Platelet Count 78x10^3/uL (140-400) Neutrophils (%) (Auto) 85% (31-73) Lymphocytes (%) (Auto) 8% (24-48) Monocytes (%) (Auto) 6% (0-9) Eosinophils (%) (Auto) 1% (0-3) Basophils (%) (Auto) 0% (0-3) Neutrophils # (Auto) 10.2x10^3uL (1.8-7.7) Lymphocytes # (Auto) 0.9x10^3/uL (1.0-4.8) Monocytes # (Auto) 0.7x10^3/uL (0.0-1.1) Eosinophils # (Auto) 0.2x10^3/uL (0.0-0.7) Basophils # (Auto) 0.0x10^3/uL (0.0-0.2) Glucose (Fingerstick) 95mg/dL (70-99) Sodium Level 136mmol/L (136-145) Potassium Level 3.7mmol/L (3.5-5.1) Chloride Level 104mmol/L (98-107) Carbon Dioxide Level 25mmol/L (21-32) Anion Gap 7 (6-14) Blood Urea Nitrogen 42mg/dL (7-20) Creatinine 1.4mg/dL (0.6-1.0) Estimated GFR (Cockcroft-Gault) 37.6 Glucose Level 110mg/dL (70-99) Calcium Level 8.8mg/dL (8.5-10.1) Micro BLD CULT RESULT 1 Final Escherichia coli Recovered from aerobic and anaerobic bottles. BLD CULT RESULT 2 Final Proteus mirabilis Recovered from aerobic and anaerobic bottles. ANTIMICROBIAL SUSCEPTIBILITY Final Comment S = Susceptible; I = Intermediate; R = Resistant P = Positive; N = Negative MICS are expressed in micrograms per mL Antibiotic RSLT#1 RSLT#2 RSLT#3 RSLT#4 Amoxicillin/Clavulanic Acid S S Ampicillin R S Cefepime S S Ceftriaxone S S Cefuroxime S S Cephalothin S S Ciprofloxacin S S Ertapenem S S Gentamicin S S Imipenem S Levofloxacin S S Nitrofurantoin S R Piperacillin R S Tetracycline S R Tobramycin S S Objective Assessment Ecoli/Proteus sepsis 09/09 - POA Leukocytosis - s/p hydrocortisone that has been dc'd Acute hypoxic resp failure - better on CPAP LE dopplers - Neg AMINTA - better DM UTI 09/09. Proteus and Ecoli - Ecoli res to pip but not tested for Zosyn Proteus sens to Pip Plan Plan of Care Will simplify to rocephin today now that lungs seem more under control F/u labs and cults Nystatin Powder THOM BLACKWOOD MD Sep 14, 2016 08:36
[2016-09-14] MEDS: CEFTRIAXONE SODIUM 2 GM in IV NORMAL SALINE 100ML 100 ML IV SCH (09:37)
--- NOTE | 2016-09-14 10:11 | PDOC ---
Subjective: Subjective: Onc f/u- thrombocytopenia No changes, on CPAP this AM. No bleeding. Objective: Vital Signs: Vital Signs Date Time Temp Pulse Resp B/P Pulse Ox O2 Delivery O2 Flow Rate FiO2 09/14/16 08:36 52 110/54 09/14/16 07:19 94 BiPAP/CPAP 2.0 09/14/16 07:00 97.8 12 97.8 Physical Exam: General: Alert, Oriented X3, Cooperative, No acute distress Lungs: Other (using CPAP this AM) Psych/Mental Status: Mental status NL, Mood NL Skin: Other (no bruising) Labs/Imaging: plt 50 --> 78 Assessment/Plan A/P: 1. Thrombocytopenia related to acute infection- Improving. Unclear baseline, but with improvement unlikely to be ITP. MEDINA ENNIS DO Sep 14, 2016 10:10
[2016-09-14 11:00] VITALS: BP 100/63
--- NOTE | 2016-09-14 11:04 | PDOC ---
PULMONARY PROGRESS NOTES Subjective pt not more soa Vitals Vital Signs Date Time Temp Pulse Resp B/P Pulse Ox O2 Delivery O2 Flow Rate FiO2 09/14/16 10:53 Nasal Cannula 2.0 09/14/16 08:36 52 110/54 09/14/16 07:19 94 09/14/16 07:00 97.8 12 97.8 General: Lethargic Lungs: Clear Cardiovascular: S1 Abdomen: Soft Extremities: No Edema Skin: Warm Labs Laboratory Tests Test 09/12/16 12:21 09/12/16 16:38 09/12/16 21:10 09/13/16 07:20 Glucose (Fingerstick) 288mg/dL (70-99) 285mg/dL (70-99) 327mg/dL (70-99) Sodium Level 137mmol/L (136-145) Potassium Level 3.5mmol/L (3.5-5.1) Chloride Level 104mmol/L (98-107) Carbon Dioxide Level 22mmol/L (21-32) Anion Gap 11 (6-14) Blood Urea Nitrogen 49mg/dL (7-20) Creatinine 1.6mg/dL (0.6-1.0) Estimated GFR (Cockcroft-Gault) 32.2 Glucose Level 217mg/dL (70-99) Calcium Level 8.9mg/dL (8.5-10.1) Test 09/13/16 07:56 09/13/16 11:45 09/13/16 16:48 09/13/16 21:16 Glucose (Fingerstick) 197mg/dL (70-99) 133mg/dL (70-99) 115mg/dL (70-99) 108mg/dL (70-99) Test 09/14/16 01:01 09/14/16 06:35 09/14/16 07:38 09/14/16 07:57 Glucose (Fingerstick) 96mg/dL (70-99) 95mg/dL (70-99) White Blood Count 12.0x10^3/uL (4.0-11.0) Red Blood Count 4.07x10^6/uL (3.50-5.40) Hemoglobin 11.1g/dL (12.0-15.5) Hematocrit 34.5% (36.0-47.0) Mean Corpuscular Volume 85fL (79-100) Mean Corpuscular Hemoglobin 27pg (25-35) Mean Corpuscular Hemoglobin Concent 32g/dL (31-37) Red Cell Distribution Width 15.0% (11.5-14.5) Platelet Count 78x10^3/uL (140-400) Neutrophils (%) (Auto) 85% (31-73) Lymphocytes (%) (Auto) 8% (24-48) Monocytes (%) (Auto) 6% (0-9) Eosinophils (%) (Auto) 1% (0-3) Basophils (%) (Auto) 0% (0-3) Neutrophils # (Auto) 10.2x10^3uL (1.8-7.7) Lymphocytes # (Auto) 0.9x10^3/uL (1.0-4.8) Monocytes # (Auto) 0.7x10^3/uL (0.0-1.1) Eosinophils # (Auto) 0.2x10^3/uL (0.0-0.7) Basophils # (Auto) 0.0x10^3/uL (0.0-0.2) Sodium Level 136mmol/L (136-145) Potassium Level 3.7mmol/L (3.5-5.1) Chloride Level 104mmol/L (98-107) Carbon Dioxide Level 25mmol/L (21-32) Anion Gap 7 (6-14) Blood Urea Nitrogen 42mg/dL (7-20) Creatinine 1.4mg/dL (0.6-1.0) Estimated GFR (Cockcroft-Gault) 37.6 Glucose Level 110mg/dL (70-99) Calcium Level 8.8mg/dL (8.5-10.1) Laboratory Tests Test 09/13/16 11:45 09/13/16 16:48 09/13/16 21:16 09/14/16 01:01 Glucose (Fingerstick) 133mg/dL (70-99) 115mg/dL (70-99) 108mg/dL (70-99) 96mg/dL (70-99) Test 09/14/16 06:35 09/14/16 07:38 09/14/16 07:57 White Blood Count 12.0x10^3/uL (4.0-11.0) Red Blood Count 4.07x10^6/uL (3.50-5.40) Hemoglobin 11.1g/dL (12.0-15.5) Hematocrit 34.5% (36.0-47.0) Mean Corpuscular Volume 85fL (79-100) Mean Corpuscular Hemoglobin 27pg (25-35) Mean Corpuscular Hemoglobin Concent 32g/dL (31-37) Red Cell Distribution Width 15.0% (11.5-14.5) Platelet Count 78x10^3/uL (140-400) Neutrophils (%) (Auto) 85% (31-73) Lymphocytes (%) (Auto) 8% (24-48) Monocytes (%) (Auto) 6% (0-9) Eosinophils (%) (Auto) 1% (0-3) Basophils (%) (Auto) 0% (0-3) Neutrophils # (Auto) 10.2x10^3uL (1.8-7.7) Lymphocytes # (Auto) 0.9x10^3/uL (1.0-4.8) Monocytes # (Auto) 0.7x10^3/uL (0.0-1.1) Eosinophils # (Auto) 0.2x10^3/uL (0.0-0.7) Basophils # (Auto) 0.0x10^3/uL (0.0-0.2) Glucose (Fingerstick) 95mg/dL (70-99) Sodium Level 136mmol/L (136-145) Potassium Level 3.7mmol/L (3.5-5.1) Chloride Level 104mmol/L (98-107) Carbon Dioxide Level 25mmol/L (21-32) Anion Gap 7 (6-14) Blood Urea Nitrogen 42mg/dL (7-20) Creatinine 1.4mg/dL (0.6-1.0) Estimated GFR (Cockcroft-Gault) 37.6 Glucose Level 110mg/dL (70-99) Calcium Level 8.8mg/dL (8.5-10.1) Medications Active Scripts Medications Dose Route/Sig Days Date Category Bupropion Hcl Sr (Bupropion Hcl) 100 Mg Tablet.er 75 Mg PO BID 09/10/16 Reported Humalog Kwikpen (Insulin Lispro) 200 Unit/1 Ml Insuln.pen 20 Unit SQ TIDWMEALS 09/10/16 Reported Gregory Cornejo (Insulin Glargine,Hum.rec.anlog) 300 Unit/1 Ml Insuln.pen 38 Unit SQ HS PRN 09/10/16 Reported Metformin Hcl 1,000 Mg Tablet 1 Tab PO BID 09/10/16 Reported Levothyroxine Sodium 200 Mcg Tablet 250 Mcg PO DAILYAC 09/10/16 Reported Magnesium Oxide 400 Mg Tablet 1 Tab PO BID 09/10/16 Reported Aspir 81 (Aspirin) 81 Mg Tablet.dr 1 Tab PO DAILY 09/10/16 Reported Losartan-Hctz 100-12.5 Mg Tab (Losartan/Hydrochlorothiazide) 1 Each Tablet 09/09/16 Reported Rosuvastatin Calcium 20 Mg Tablet 20 Mg 09/09/16 Reported Metoprolol Succinate ( Xl ) (Metoprolol Succinate) 100 Mg Tab.er.24h 100 Mg 09/09/16 Reported Omeprazole 40 Mg Capsule.dr 40 Mg 09/09/16 Reported Escitalopram Oxalate 10 Mg Tablet 20 Mg PO 01/24/14 Reported Norvasc (Amlodipine Besylate) 10 Mg Tablet 10 Mg PO DAILY07 09/05/13 Reported Impression . 1. Acute hypoxic respiratory failure, multifactorial improving 2. GRAM NEGATIVE BACTEREMIA/SEPSIS 3. Acute kidney injury, per nephro 4. Mildly increased troponin level. 5. No significant history of tobacco use. 6. History of obstructive sleep apnea on home CPAP. 7. No evidence of pulmonary embolism by V/Q scan. Plan . resp status is compensated antibx per ID home cpap feels better LIVIER ROMAN MD Sep 14, 2016 11:04
--- NOTE | 2016-09-14 11:16 | PDOC ---
Renal-Progress Notes Subjective Notes Notes NOTHING NEW History of Present Illness Hx of present illness STABLE Vitals Vitals Vital Signs Date Time Temp Pulse Resp B/P Pulse Ox O2 Delivery O2 Flow Rate FiO2 09/14/16 10:53 Nasal Cannula 2.0 09/14/16 08:36 52 110/54 09/14/16 07:19 94 09/14/16 07:00 97.8 12 97.8 Weight Weight [ ] I.O. Intake and Output Intake and Output 09/14/16 07:00 Intake Total 3030 ml Balance 3030 ml Intake Oral 3030 ml # Voids 4 Labs Labs Laboratory Tests Test 09/13/16 11:45 09/13/16 16:48 09/13/16 21:16 09/14/16 01:01 Glucose (Fingerstick) 133mg/dL (70-99) 115mg/dL (70-99) 108mg/dL (70-99) 96mg/dL (70-99) Test 09/14/16 06:35 09/14/16 07:38 09/14/16 07:57 White Blood Count 12.0x10^3/uL (4.0-11.0) Red Blood Count 4.07x10^6/uL (3.50-5.40) Hemoglobin 11.1g/dL (12.0-15.5) Hematocrit 34.5% (36.0-47.0) Mean Corpuscular Volume 85fL (79-100) Mean Corpuscular Hemoglobin 27pg (25-35) Mean Corpuscular Hemoglobin Concent 32g/dL (31-37) Red Cell Distribution Width 15.0% (11.5-14.5) Platelet Count 78x10^3/uL (140-400) Neutrophils (%) (Auto) 85% (31-73) Lymphocytes (%) (Auto) 8% (24-48) Monocytes (%) (Auto) 6% (0-9) Eosinophils (%) (Auto) 1% (0-3) Basophils (%) (Auto) 0% (0-3) Neutrophils # (Auto) 10.2x10^3uL (1.8-7.7) Lymphocytes # (Auto) 0.9x10^3/uL (1.0-4.8) Monocytes # (Auto) 0.7x10^3/uL (0.0-1.1) Eosinophils # (Auto) 0.2x10^3/uL (0.0-0.7) Basophils # (Auto) 0.0x10^3/uL (0.0-0.2) Glucose (Fingerstick) 95mg/dL (70-99) Sodium Level 136mmol/L (136-145) Potassium Level 3.7mmol/L (3.5-5.1) Chloride Level 104mmol/L (98-107) Carbon Dioxide Level 25mmol/L (21-32) Anion Gap 7 (6-14) Blood Urea Nitrogen 42mg/dL (7-20) Creatinine 1.4mg/dL (0.6-1.0) Estimated GFR (Cockcroft-Gault) 37.6 Glucose Level 110mg/dL (70-99) Calcium Level 8.8mg/dL (8.5-10.1) Micro Micro Microbiology 09/09/16 Blood Culture - Final, Complete 09/09/16 Blood Culture Result 1 (QUIQUE) - Final, Complete 09/09/16 Blood Culture Result 2 (QUIQUE) - Final, Complete 09/09/16 Urine Culture - Final, Complete 09/09/16 Urine Culture Result 1 (QUIQUE) - Final, Complete 09/09/16 Urine Culture Result 2 (QUIQUE) - Final, Complete 09/09/16 Antimicrobic Susceptibility - Final, Complete Review of Systems Constitutional: yes: alert, no symptom reported, weakness Physical Exam General Appearance: no apparent distress Skin: warm Respiratory: bilateral CTA Heart: S1S2, RRR Abdomen: soft Extremities: pulses present Neurology: alert, oriented Musculoskeletal: Osteoarthritis Assessment Assessment IMP AMINTA-STABLE WITH CR IMPROVED TO 1.4 SEPSIS UTI PLAN ANTIBIOTICS CONT IVF'S ALPA BARBER MD Sep 14, 2016 11:16
--- NOTE | 2016-09-14 13:06 | PDOC ---
PROGRESS NOTES Chief Complaint Chief Complaint Sepsis History of Present Illness History of Present Illness Patient is seen on the floor, she was transferred out of ICU yesterday. She was on CPAP this morning. She reports that she is feeling better and her shortness of breath has decreased. Possibility of rehab following discharge was discussed , her and her would like to see where she is closer to discharge before deciding. Social work was consulted for initial SNU eval. Her WBC count did increase overnight, will trend. Vitals Vitals Vital Signs Date Time Temp Pulse Resp B/P Pulse Ox O2 Delivery O2 Flow Rate FiO2 09/14/16 11:00 97.6 59 12 100/63 95 Nasal Cannula 3.0 97.6 Physical Exam General: Alert, Oriented X3, Cooperative, mild distress Heart: Regular rate, No murmurs Lungs: Wheezing (mild wheezing) Abdomen: Soft, No tenderness Extremities: No cyanosis, No edema Skin: No rashes, No significant lesion Labs LABS Laboratory Tests Test 09/13/16 16:48 09/13/16 21:16 09/14/16 01:01 09/14/16 06:35 Glucose (Fingerstick) 115mg/dL (70-99) 108mg/dL (70-99) 96mg/dL (70-99) White Blood Count 12.0x10^3/uL (4.0-11.0) Red Blood Count 4.07x10^6/uL (3.50-5.40) Hemoglobin 11.1g/dL (12.0-15.5) Hematocrit 34.5% (36.0-47.0) Mean Corpuscular Volume 85fL (79-100) Mean Corpuscular Hemoglobin 27pg (25-35) Mean Corpuscular Hemoglobin Concent 32g/dL (31-37) Red Cell Distribution Width 15.0% (11.5-14.5) Platelet Count 78x10^3/uL (140-400) Neutrophils (%) (Auto) 85% (31-73) Lymphocytes (%) (Auto) 8% (24-48) Monocytes (%) (Auto) 6% (0-9) Eosinophils (%) (Auto) 1% (0-3) Basophils (%) (Auto) 0% (0-3) Neutrophils # (Auto) 10.2x10^3uL (1.8-7.7) Lymphocytes # (Auto) 0.9x10^3/uL (1.0-4.8) Monocytes # (Auto) 0.7x10^3/uL (0.0-1.1) Eosinophils # (Auto) 0.2x10^3/uL (0.0-0.7) Basophils # (Auto) 0.0x10^3/uL (0.0-0.2) Test 09/14/16 07:38 09/14/16 07:57 09/14/16 11:44 Glucose (Fingerstick) 95mg/dL (70-99) 146mg/dL (70-99) Sodium Level 136mmol/L (136-145) Potassium Level 3.7mmol/L (3.5-5.1) Chloride Level 104mmol/L (98-107) Carbon Dioxide Level 25mmol/L (21-32) Anion Gap 7 (6-14) Blood Urea Nitrogen 42mg/dL (7-20) Creatinine 1.4mg/dL (0.6-1.0) Estimated GFR (Cockcroft-Gault) 37.6 Glucose Level 110mg/dL (70-99) Calcium Level 8.8mg/dL (8.5-10.1) Review of Systems Review of Systems Denies fever and chills. Reports shortness of breath has decreased since yesterday. Assessment and Plan Assessmemt and Plan Problems Medical Problems: (1) Hypoxia Status: Acute (2) Hypoxic Status: Acute (3) NSTEMI (non-ST elevated myocardial infarction) Status: Acute (4) Shortness of breath Status: Acute ASSESSMENT: 1. Sepsis: GNR bacteremia: both E.coli and P.mirabilis identified. 2. Acute hypoxic respiratory failure: CXR negative, serology Flu A/B negative 3. KARENA with secondary pHTN 4. Intermittent chest pain 5. CHF: chronic diastolic 5. 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 morbid obesity, BMI 49 9. Thrombocytopenia PLAN: Social work was consulted for initial SNU evaluation Will begin Rocephin today per ID, recommendations are appreciated ID, pulmonology, hematology, and renal are following, their recommendations are appreciated Continue supplemental O2 for intermittent hypoxia Continue CPAP Continue insulin therapy Continue to monitor daily labs, will trend WBC count PT/OT eval and treat Problems: Comment Review of Relevant I have reviewed the following items jeffrey (where applicable) has been applied. Labs Laboratory Tests Test 09/12/16 16:38 09/12/16 21:10 09/13/16 07:20 09/13/16 07:56 Glucose (Fingerstick) 285mg/dL (70-99) 327mg/dL (70-99) 197mg/dL (70-99) Sodium Level 137mmol/L (136-145) Potassium Level 3.5mmol/L (3.5-5.1) Chloride Level 104mmol/L (98-107) Carbon Dioxide Level 22mmol/L (21-32) Anion Gap 11 (6-14) Blood Urea Nitrogen 49mg/dL (7-20) Creatinine 1.6mg/dL (0.6-1.0) Estimated GFR (Cockcroft-Gault) 32.2 Glucose Level 217mg/dL (70-99) Calcium Level 8.9mg/dL (8.5-10.1) Test 09/13/16 11:45 09/13/16 16:48 09/13/16 21:16 09/14/16 01:01 Glucose (Fingerstick) 133mg/dL (70-99) 115mg/dL (70-99) 108mg/dL (70-99) 96mg/dL (70-99) Test 09/14/16 06:35 09/14/16 07:38 09/14/16 07:57 09/14/16 11:44 White Blood Count 12.0x10^3/uL (4.0-11.0) Red Blood Count 4.07x10^6/uL (3.50-5.40) Hemoglobin 11.1g/dL (12.0-15.5) Hematocrit 34.5% (36.0-47.0) Mean Corpuscular Volume 85fL (79-100) Mean Corpuscular Hemoglobin 27pg (25-35) Mean Corpuscular Hemoglobin Concent 32g/dL (31-37) Red Cell Distribution Width 15.0% (11.5-14.5) Platelet Count 78x10^3/uL (140-400) Neutrophils (%) (Auto) 85% (31-73) Lymphocytes (%) (Auto) 8% (24-48) Monocytes (%) (Auto) 6% (0-9) Eosinophils (%) (Auto) 1% (0-3) Basophils (%) (Auto) 0% (0-3) Neutrophils # (Auto) 10.2x10^3uL (1.8-7.7) Lymphocytes # (Auto) 0.9x10^3/uL (1.0-4.8) Monocytes # (Auto) 0.7x10^3/uL (0.0-1.1) Eosinophils # (Auto) 0.2x10^3/uL (0.0-0.7) Basophils # (Auto) 0.0x10^3/uL (0.0-0.2) Glucose (Fingerstick) 95mg/dL (70-99) 146mg/dL (70-99) Sodium Level 136mmol/L (136-145) Potassium Level 3.7mmol/L (3.5-5.1) Chloride Level 104mmol/L (98-107) Carbon Dioxide Level 25mmol/L (21-32) Anion Gap 7 (6-14) Blood Urea Nitrogen 42mg/dL (7-20) Creatinine 1.4mg/dL (0.6-1.0) Estimated GFR (Cockcroft-Gault) 37.6 Glucose Level 110mg/dL (70-99) Calcium Level 8.8mg/dL (8.5-10.1) Laboratory Tests Test 09/13/16 16:48 09/13/16 21:16 09/14/16 01:01 09/14/16 06:35 Glucose (Fingerstick) 115mg/dL (70-99) 108mg/dL (70-99) 96mg/dL (70-99) White Blood Count 12.0x10^3/uL (4.0-11.0) Red Blood Count 4.07x10^6/uL (3.50-5.40) Hemoglobin 11.1g/dL (12.0-15.5) Hematocrit 34.5% (36.0-47.0) Mean Corpuscular Volume 85fL (79-100) Mean Corpuscular Hemoglobin 27pg (25-35) Mean Corpuscular Hemoglobin Concent 32g/dL (31-37) Red Cell Distribution Width 15.0% (11.5-14.5) Platelet Count 78x10^3/uL (140-400) Neutrophils (%) (Auto) 85% (31-73) Lymphocytes (%) (Auto) 8% (24-48) Monocytes (%) (Auto) 6% (0-9) Eosinophils (%) (Auto) 1% (0-3) Basophils (%) (Auto) 0% (0-3) Neutrophils # (Auto) 10.2x10^3uL (1.8-7.7) Lymphocytes # (Auto) 0.9x10^3/uL (1.0-4.8) Monocytes # (Auto) 0.7x10^3/uL (0.0-1.1) Eosinophils # (Auto) 0.2x10^3/uL (0.0-0.7) Basophils # (Auto) 0.0x10^3/uL (0.0-0.2) Test 09/14/16 07:38 09/14/16 07:57 09/14/16 11:44 Glucose (Fingerstick) 95mg/dL (70-99) 146mg/dL (70-99) Sodium Level 136mmol/L (136-145) Potassium Level 3.7mmol/L (3.5-5.1) Chloride Level 104mmol/L (98-107) Carbon Dioxide Level 25mmol/L (21-32) Anion Gap 7 (6-14) Blood Urea Nitrogen 42mg/dL (7-20) Creatinine 1.4mg/dL (0.6-1.0) Estimated GFR (Cockcroft-Gault) 37.6 Glucose Level 110mg/dL (70-99) Calcium Level 8.8mg/dL (8.5-10.1) Microbiology 09/09/16 Blood Culture - Final, Complete 09/09/16 Blood Culture Result 1 (QUIQUE) - Final, Complete 09/09/16 Blood Culture Result 2 (QUIQUE) - Final, Complete 09/09/16 Urine Culture - Final, Complete 09/09/16 Urine Culture Result 1 (QUIQUE) - Final, Complete 09/09/16 Urine Culture Result 2 (QUIQUE) - Final, Complete 09/09/16 Antimicrobic Susceptibility - Final, Complete Medications Current Medications Albuterol/ Ipratropium 3 ml 3 ml 1X ONCE NEB Last administered on 09/09/16 18 :47; Start 09/09/16 at 18:45; Stop 09/09/16 at 18:46; Status DC Sodium Chloride (Iv Sodium Chloride 0.9% 1000ml Bag) 1,000 ml @ 1,000 mls/hr 1X ONCE IV Last administered on 09/09/16 19:56; Start 09/09/16 at 18:45; Stop 09/09/16 at 19:44; Status DC Albuterol/ Ipratropium (Duoneb) 3 ml 1X ONCE NEB Last administered on 21:21; Start 09/09/16 at 20:15; Stop 09/09/16 at 20:16; Status DC Aspirin 324 mg 324 mg 1X ONCE PO Last administered on 09/09/16 20:57; Start 09/09/16 at 20:15; Stop 09/09/16 at 20:18; Status DC Piperacillin Sod/ Tazobactam Sod/ Sodium Chloride (Zosyn/Iv Sodium Chloride 0.9 % 50ml) 50 ml @ 100 mls/hr 1X ONCE IV Last administered on 09/09/16 20:57; Start 09/09/16 at 20:45; Stop 09/09/16 at 21:14; Status DC Furosemide (Lasix) 40 mg 1X ONCE IVP Last administered on 09/09/16 20:58; Start 09/09/16 at 20:45; Stop 09/09/16 at 20:46; Status DC Enoxaparin Sodium (Lovenox Per Pharmacy Treatment Dosing) 1 each PRN DAILY PRN MC SEE COMMENTS; Start 09/09/16 at 20:45; Stop 09/11/16 at 12:09; Status DC Enoxaparin Sodium (Lovenox 150mg Syringe) 130 mg Q12HR SQ ; Start 09/09/16 at 21 :00; Stop 09/11/16 at 12:09; Status DC Ondansetron HCl (Zofran) 4 mg PRN Q8HRS PRN IV NAUSEA/VOMITING; Start 09/09/16 at 20:45; Stop 09/10/16 at 20:44; Status DC Albuterol/ Ipratropium (Duoneb) 3 ml RTQID NEB Last administered on 09/11/16 11:24; Start 09/10/16 at 08:00; Stop 09/11/16 at 07:59; Status DC Acetaminophen 650 mg 650 mg PRN Q6HRS PRN PO MILD PAIN / TEMP Last administered on 09/14/16 06:02; Start 09/10/16 at 06:15 Sodium Chloride 1,000 ml @ 100 mls/hr Q10H IV Last administered on 09/12/16 04:43; Start 09/10/16 at 12:30; Stop 09/13/16 at 16:44; Status DC Piperacillin Sod/ Tazobactam Sod/ Sodium Chloride (Zosyn/Iv Sodium Chloride 0.9 % 50ml) 50 ml @ 100 mls/hr Q6HRS IV Last administered on 09/11/16 12:18; Start 09/10/16 at 13:30; Stop 09/11/16 at 12:46; Status DC Amlodipine Besylate (Norvasc) 10 mg DAILY07 PO Last administered on 09/11/16 09:35; Start 09/10/16 at 14:30; Stop 09/11/16 at 12:26; Status DC Aspirin (Ecotrin) 81 mg DAILY PO Last administered on 09/14/16 08:33; Start at 14:30 Bupropion HCl (Wellbutrin Xl) 150 mg DAILY PO Last administered on 09/14/16 08 :33; Start 09/11/16 at 09:00 Escitalopram Oxalate (Lexapro) 20 mg DAILY PO Last administered on 09/14/16 08 :34; Start 09/10/16 at 14:30 Magnesium Oxide (Magnesium Oxide) 400 mg BID PO Last administered on 09/14/16 08:34; Start 09/10/16 at 21:00 Metoprolol Succinate (Toprol Xl) 100 mg DAILY PO Last administered on 09:35; Start 09/10/16 at 14:30; Stop 09/11/16 at 12:26; Status DC Non-Formulary Medication 38 unit HS PRN SQ SEE COMMENTS; Start 09/10/16 at 13: 45; Stop 09/10/16 at 13:45; Status DC Insulin Aspart (Novolog) 20 units TIDAC SQ Last administered on 09/14/16 12:04 ; Start 09/10/16 at 16:30 Levothyroxine Sodium (Synthroid) 250 mcg DAILY07 PO Last administered on 06:29; Start 09/10/16 at 14:30 Insulin Detemir (Levemir) 38 units QHS SQ Last administered on 09/13/16 21:34 ; Start 09/10/16 at 21:00 Albuterol/ Ipratropium (Duoneb) 3 ml RTQID NEB Last administered on 09/14/16 10:51; Start 09/11/16 at 12:00 Albuterol/ Ipratropium (Duoneb) 3 ml PRN Q2HR PRN NEB SHORTNESS OF BREATH; Start 09/11/16 at 12:00; Stop 09/11/16 at 12:02; Status DC Albuterol Sulfate (Ventolin Neb Soln) 2.5 mg PRN Q2HR PRN NEB WHEEZING; Start 09/11/16 at 12:00; Status Cancel Albuterol Sulfate 2.5 mg 2.5 mg PRN Q2HRS PRN NEB SHORTNESS OF BREATH; Start at 12:00 Sodium Chloride (Iv Sodium Chloride 0.9% 500ml Bag) 500 ml @ 500 mls/hr 1X ONCE IV Last administered on 09/11/16 12:30; Start 09/11/16 at 12:30; Stop 06/18 at 13:29; Status DC Metoprolol Succinate 50 mg 50 mg DAILY PO Last administered on 09/13/16 08:54 ; Start 09/12/16 at 09:00 Meropenem 500 mg/ Sodium Chloride 50 ml @ 100 mls/hr Q8HRS IV ; Start 09/11/16 at 12:45; Stop 09/11/16 at 12:46; Status DC Meropenem/Sodium Chloride (Merrem/Iv Sodium Chloride 0.9% 50ml) 50 ml @ 100 mls /hr Q6HRS IV Last administered on 09/14/16 05:30; Start 09/11/16 at 13:00; Stop 09/14/16 at 08:36; Status DC Hydrocortisone Sodium Succinate 100 mg 100 mg Q8HRS IV Last administered on 06:17; Start 09/11/16 at 15:15; Stop 09/12/16 at 14:05; Status DC Sodium Chloride 500 ml @ 500 mls/hr 1X ONCE IV Last administered on 15:15; Start 09/11/16 at 15:15; Stop 09/11/16 at 16:14; Status DC Albumin Human (Albuminar) 50 ml @ 50 mls/hr 1X ONCE IV Last administered on 17:43; Start 09/11/16 at 17:00; Stop 09/11/16 at 17:59; Status DC Oxycodone HCl 5 mg 5 mg PRN Q6HRS PRN PO PAIN Last administered on 09/13/16 13 :02; Start 09/11/16 at 18:15 Ceftriaxone Sodium/Sodium Chloride (Rocephin/Iv Sodium Chloride 0.9% 100ml) 100 ml @ 200 mls/hr Q24H IV Last administered on 09/14/16 09:37; Start 09/14/16 at 09:00 Active Scripts Active Reported Bupropion Hcl Sr (Bupropion Hcl) 100 Mg Tablet.er 75 Mg PO BID Humalog Kwikpen (Insulin Lispro) 200 Unit/1 Ml Insuln.pen 20 Unit SQ TIDWMEALS Toujeo Solostar (Insulin Glargine,Hum.rec.anlog) 300 Unit/1 Ml Insuln.pen 38 Unit SQ HS PRN Metformin Hcl 1,000 Mg Tablet 1 Tab PO BID Levothyroxine Sodium 200 Mcg Tablet 250 Mcg PO DAILYAC Magnesium Oxide 400 Mg Tablet 1 Tab PO BID Aspir 81 (Aspirin) 81 Mg Tablet. 1 Tab PO DAILY Losartan-Hctz 100-12.5 Mg Tab (Losartan/Hydrochlorothiazide) 1 Each Tablet Rosuvastatin Calcium 20 Mg Tablet 20 Mg Metoprolol Succinate ( Xl ) (Metoprolol Succinate) 100 Mg Tab.er.24h 100 Mg Omeprazole 40 Mg Capsule.dr 40 Mg Escitalopram Oxalate 10 Mg Tablet 20 Mg PO Norvasc (Amlodipine Besylate) 10 Mg Tablet 10 Mg PO DAILY07 Vitals/I & O Vital Sign - Last 24 Hours 09/13/16 09/13/16 09/13/16 09/13/16 13:02 14:02 14:50 15:37 Temp 97.6 97.6 Pulse 55 Resp 20 B/P 94/52 Pulse Ox 92 92 92 O2 Delivery Room Air Nasal Cannula BiPAP/CPAP BiPAP/CPAP O2 Flow Rate 3.0 09/13/16 09/13/16 09/13/16 09/13/16 19:30 20:51 21:50 22:15 Temp 98.4 100.3 98.4 100.3 Pulse 66 72 Resp 26 18 B/P 150/82 110/47 Pulse Ox 100 97 93 O2 Delivery Nasal Cannula BiPAP/CPAP BiPAP/CPAP Nasal Cannula O2 Flow Rate 3.0 3.0 09/13/16 09/14/16 09/14/16 09/14/16 23:00 03:39 07:00 07:19 Temp 99.5 97.5 97.8 99.5 97.5 97.8 Pulse 93 58 52 Resp 20 18 12 B/P 116/52 107/58 110/54 Pulse Ox 100 92 96 94 O2 Delivery BiPAP/CPAP BiPAP/CPAP BiPAP/CPAP BiPAP/CPAP O2 Flow Rate 2.0 09/14/16 09/14/16 09/14/16 09/14/16 08:15 08:36 10:53 11:00 Temp 97.6 97.6 Pulse 52 59 Resp 12 B/P 110/54 100/63 Pulse Ox 95 O2 Delivery Nasal Cannula Nasal Cannula Nasal Cannula O2 Flow Rate 3.0 2.0 3.0 Intake and Output 09/13/16 09/13/16 09/14/16 15:00 23:00 07:00 Intake Total 2630 ml 400 ml Balance 2630 ml 400 ml MOOKIE VILLASENOR III DO Sep 14, 2016 13:06
[2016-09-14 15:09] VITALS: BP 143/67
[2016-09-14 19:00] VITALS: BP 113/54
[2016-09-14] MEDS: OXYCODONE IR 5 MG TABLET. PO PRN (19:16)
[2016-09-14] MEDS: INSULIN DETEMIR 300 UNITS/3 ML INSULN.PEN. SQ SCH (21:45)
[2016-09-14 23:00] VITALS: BP 123/58
[2016-09-15 03:00] VITALS: BP 129/64
[2016-09-15 05:20] LABS: BASO % 0 % (0-3); EOS % 1 % (0-3); HEMATOCRIT 34.8 % (36.0-47.0); HEMOGLOBIN 11.3 g/dL (12.0-15.5); LYMPH # 0.9 x10^3/uL (1.0-4.8); LYMPH % 7 % (24-48); MEAN CORPUSCULAR HEMOGLOBIN 27 pg (25-35); MEAN CORPUSCULAR HGB CONC 32 g/dL (31-37); MEAN CORPUSCULAR VOLUME 84 fL (79-100); MONO % 3 % (0-9); NEUT % 89 % (31-73); PLATELET COUNT 82 x10^3/uL (140-400); RED BLOOD COUNT 4.14 x10^6/uL (3.50-5.40); RED CELL DISTRIBUTION WIDTH 15.5 % (11.5-14.5); WHITE BLOOD COUNT 14.3 x10^3/uL (4.0-11.0)
[2016-09-15 05:34] LABS: CREATININE 1.1 mg/dL (0.6-1.0); GFR 49.7; POTASSIUM 3.8 mmol/L (3.5-5.1)
[2016-09-15 07:00] VITALS: BP 123/61
[2016-09-15] MEDS: LEVOTHYROXINE 125 MCG TABLET PO SCH (07:29)
[2016-09-15] MEDS: INSULIN ASPART 300 UNITS/3 ML INSULN.PEN SQ SCH ×2 (07:30→11:30)
[2016-09-15] MEDS: IPRATRPIUM/ALBUTEROL 0.5/2.5MG 3 ML NEBU. NEB SCH ×2 (07:55→11:07)
[2016-09-15] MEDS: ESCITALOPRAM 10 MG TABLET. PO SCH (08:44)
[2016-09-15] MEDS: MAGNESIUM OXIDE 400 MG TABLET PO SCH (08:44)
[2016-09-15] MEDS: ASPIRIN ENTERIC COATED 81 MG TABLET.DR. PO SCH (08:45)
[2016-09-15] MEDS: buPROPion XL 150 MG TAB.ER.24H PO SCH (08:45)
[2016-09-15] MEDS: METOPROLOL SUCC 24HR ER 50 MG TAB.ER.24H. PO SCH (08:45)
--- NOTE | 2016-09-15 08:53 | PDOC ---
Infectious Disease Note Subjective Subjective Feeling better this morning, "I have turned a corner" First time out of bed in 8 days, sitting in chair having breakfast Still short of breath, NC ROS ROS GEN: Denies fevers, chills, sweats HEENT: Denies blurred vision, sore throat CV: Denies chest pain RESP:+ shortness of air, cough GI: Denies n/v/d NEURO: Denies confusion, dizziness MSK: Denies weakness, joint pain/swelling Vital Sign Vital Signs Vital Signs Date Time Temp Pulse Resp B/P Pulse Ox O2 Delivery O2 Flow Rate FiO2 09/15/16 08:45 65 123/61 09/15/16 07:55 95 Nasal Cannula 3.0 09/15/16 07:00 99.0 14 99.0 Physical Exam PHYSICAL EXAM GENERAL: NAD, Alert, in chair HEENT: PERRL, OC/OP - clear, NC NECK: Supple, no JVD, no LN LUNGS: Crackles HEART: S1S2, no gallop, no murmur ABD: Soft, NT, no organomegaly, no rebound, obese EXT: Trace edema, no cyanosis [employer]: Alert, oriented x 3, no focal neurologic deficit SKIN: No rash IV: ok Labs Lab Laboratory Tests Test 09/14/16 11:44 09/14/16 16:34 09/14/16 21:31 09/15/16 04:58 Glucose (Fingerstick) 146mg/dL (70-99) 73mg/dL (70-99) 127mg/dL (70-99) White Blood Count 14.3x10^3/uL (4.0-11.0) Red Blood Count 4.14x10^6/uL (3.50-5.40) Hemoglobin 11.3g/dL (12.0-15.5) Hematocrit 34.8% (36.0-47.0) Mean Corpuscular Volume 84fL (79-100) Mean Corpuscular Hemoglobin 27pg (25-35) Mean Corpuscular Hemoglobin Concent 32g/dL (31-37) Red Cell Distribution Width 15.5% (11.5-14.5) Platelet Count 82x10^3/uL (140-400) Neutrophils (%) (Auto) 89% (31-73) Lymphocytes (%) (Auto) 7% (24-48) Monocytes (%) (Auto) 3% (0-9) Eosinophils (%) (Auto) 1% (0-3) Basophils (%) (Auto) 0% (0-3) Neutrophils # (Auto) 12.7x10^3uL (1.8-7.7) Lymphocytes # (Auto) 0.9x10^3/uL (1.0-4.8) Monocytes # (Auto) 0.5x10^3/uL (0.0-1.1) Eosinophils # (Auto) 0.2x10^3/uL (0.0-0.7) Basophils # (Auto) 0.0x10^3/uL (0.0-0.2) Sodium Level 135mmol/L (136-145) Potassium Level 3.8mmol/L (3.5-5.1) Chloride Level 101mmol/L (98-107) Carbon Dioxide Level 25mmol/L (21-32) Anion Gap 9 (6-14) Blood Urea Nitrogen 33mg/dL (7-20) Creatinine 1.1mg/dL (0.6-1.0) Estimated GFR (Cockcroft-Gault) 49.7 Glucose Level 148mg/dL (70-99) Calcium Level 9.0mg/dL (8.5-10.1) Test 09/15/16 07:27 Glucose (Fingerstick) 124mg/dL (70-99) Micro BLD CULT RESULT 1 Final Escherichia coli Recovered from aerobic and anaerobic bottles. BLD CULT RESULT 2 Final Proteus mirabilis Recovered from aerobic and anaerobic bottles. ANTIMICROBIAL SUSCEPTIBILITY Final Comment S = Susceptible; I = Intermediate; R = Resistant P = Positive; N = Negative MICS are expressed in micrograms per mL Antibiotic RSLT#1 RSLT#2 RSLT#3 RSLT#4 Amoxicillin/Clavulanic Acid S S Ampicillin R S Cefepime S S Ceftriaxone S S Cefuroxime S S Cephalothin S S Ciprofloxacin S S Ertapenem S S Gentamicin S S Imipenem S Levofloxacin S S Nitrofurantoin S R Piperacillin R S Tetracycline S R Tobramycin S S Objective Assessment Fever Ecoli/Proteus sepsis 09/09 - POA Leukocytosis - s/p hydrocortisone that has been dc'd Acute hypoxic resp failure - better now on NC, LE dopplers - Neg AMINTA - better DM UTI 09/09. Proteus and Ecoli - Ecoli res to pip but not tested for Zosyn Proteus sens to Pip Plan Plan of Care Cont rocephin F/u labs and cults Nystatin Powder D/w THOM BLACKWOOD MD Sep 15, 2016 08:53
[2016-09-15] MEDS: CEFTRIAXONE SODIUM 2 GM in IV NORMAL SALINE 100ML 100 ML IV SCH (09:03)
[2016-09-15] MEDS: ACETAMINOPHEN 325 MG TABLET. PO PRN (09:14)
--- NOTE | 2016-09-15 10:02 | PDOC ---
PROGRESS NOTES Chief Complaint Chief Complaint Sepsis History of Present Illness History of Present Illness NO acute events overnight. Patient continues to use CPAP at night. She is out of bed this morning and reports she is feeling much better. She is still having some shortness of breath but it is improving. She does not have an appetite and is only eating about 30% of meals. Vitals Vitals Vital Signs Date Time Temp Pulse Resp B/P Pulse Ox O2 Delivery O2 Flow Rate FiO2 09/15/16 08:45 65 123/61 09/15/16 08:00 Nasal Cannula 3.0 09/15/16 07:55 95 09/15/16 07:00 99.0 14 99.0 Physical Exam General: Alert, Oriented X3, Cooperative, No acute distress Heart: Regular rate, No murmurs Lungs: Clear Abdomen: Soft, No tenderness Extremities: No cyanosis, No edema Skin: No rashes, No significant lesion Labs LABS Laboratory Tests Test 09/14/16 11:44 09/14/16 16:34 09/14/16 21:31 09/15/16 04:58 Glucose (Fingerstick) 146mg/dL (70-99) 73mg/dL (70-99) 127mg/dL (70-99) White Blood Count 14.3x10^3/uL (4.0-11.0) Red Blood Count 4.14x10^6/uL (3.50-5.40) Hemoglobin 11.3g/dL (12.0-15.5) Hematocrit 34.8% (36.0-47.0) Mean Corpuscular Volume 84fL (79-100) Mean Corpuscular Hemoglobin 27pg (25-35) Mean Corpuscular Hemoglobin Concent 32g/dL (31-37) Red Cell Distribution Width 15.5% (11.5-14.5) Platelet Count 82x10^3/uL (140-400) Neutrophils (%) (Auto) 89% (31-73) Lymphocytes (%) (Auto) 7% (24-48) Monocytes (%) (Auto) 3% (0-9) Eosinophils (%) (Auto) 1% (0-3) Basophils (%) (Auto) 0% (0-3) Neutrophils # (Auto) 12.7x10^3uL (1.8-7.7) Lymphocytes # (Auto) 0.9x10^3/uL (1.0-4.8) Monocytes # (Auto) 0.5x10^3/uL (0.0-1.1) Eosinophils # (Auto) 0.2x10^3/uL (0.0-0.7) Basophils # (Auto) 0.0x10^3/uL (0.0-0.2) Sodium Level 135mmol/L (136-145) Potassium Level 3.8mmol/L (3.5-5.1) Chloride Level 101mmol/L (98-107) Carbon Dioxide Level 25mmol/L (21-32) Anion Gap 9 (6-14) Blood Urea Nitrogen 33mg/dL (7-20) Creatinine 1.1mg/dL (0.6-1.0) Estimated GFR (Cockcroft-Gault) 49.7 Glucose Level 148mg/dL (70-99) Calcium Level 9.0mg/dL (8.5-10.1) Test 09/15/16 07:27 Glucose (Fingerstick) 124mg/dL (70-99) Review of Systems Review of Systems Reports some shortness of breath, improving daily. Denies chest pain. Denies fever and chills. Assessment and Plan Assessmemt and Plan Problems Medical Problems: (1) Hypoxia Status: Acute (2) Hypoxic Status: Acute (3) NSTEMI (non-ST elevated myocardial infarction) Status: Acute (4) Shortness of breath Status: Acute ASSESSMENT: 1. Sepsis: GNR bacteremia: both E.coli and P.mirabilis identified. 2. Acute hypoxic respiratory failure: CXR negative, serology Flu A/B negative 3. KAREAN with secondary pHTN 4. Intermittent chest pain 5. CHF: chronic diastolic 5. 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 morbid obesity, BMI 49 9. Thrombocytopenia PLAN: Encourage PO intake Continue antibiotics per ID ID, pulmonology, hematology, and renal are following, their recommendations are appreciated Continue supplemental O2 for intermittent hypoxia Social work consulted for initial SNU evaluation Continue CPAP Continue insulin therapy Continue to monitor daily labs, will trend WBC count PT/OT eval and treat Problems: Comment Review of Relevant I have reviewed the following items jeffrey (where applicable) has been applied. Labs Laboratory Tests Test 09/13/16 11:45 09/13/16 16:48 09/13/16 21:16 09/14/16 01:01 Glucose (Fingerstick) 133mg/dL (70-99) 115mg/dL (70-99) 108mg/dL (70-99) 96mg/dL (70-99) Test 09/14/16 06:35 09/14/16 07:38 09/14/16 07:57 09/14/16 11:44 White Blood Count 12.0x10^3/uL (4.0-11.0) Red Blood Count 4.07x10^6/uL (3.50-5.40) Hemoglobin 11.1g/dL (12.0-15.5) Hematocrit 34.5% (36.0-47.0) Mean Corpuscular Volume 85fL (79-100) Mean Corpuscular Hemoglobin 27pg (25-35) Mean Corpuscular Hemoglobin Concent 32g/dL (31-37) Red Cell Distribution Width 15.0% (11.5-14.5) Platelet Count 78x10^3/uL (140-400) Neutrophils (%) (Auto) 85% (31-73) Lymphocytes (%) (Auto) 8% (24-48) Monocytes (%) (Auto) 6% (0-9) Eosinophils (%) (Auto) 1% (0-3) Basophils (%) (Auto) 0% (0-3) Neutrophils # (Auto) 10.2x10^3uL (1.8-7.7) Lymphocytes # (Auto) 0.9x10^3/uL (1.0-4.8) Monocytes # (Auto) 0.7x10^3/uL (0.0-1.1) Eosinophils # (Auto) 0.2x10^3/uL (0.0-0.7) Basophils # (Auto) 0.0x10^3/uL (0.0-0.2) Glucose (Fingerstick) 95mg/dL (70-99) 146mg/dL (70-99) Sodium Level 136mmol/L (136-145) Potassium Level 3.7mmol/L (3.5-5.1) Chloride Level 104mmol/L (98-107) Carbon Dioxide Level 25mmol/L (21-32) Anion Gap 7 (6-14) Blood Urea Nitrogen 42mg/dL (7-20) Creatinine 1.4mg/dL (0.6-1.0) Estimated GFR (Cockcroft-Gault) 37.6 Glucose Level 110mg/dL (70-99) Calcium Level 8.8mg/dL (8.5-10.1) Test 09/14/16 16:34 09/14/16 21:31 09/15/16 04:58 09/15/16 07:27 Glucose (Fingerstick) 73mg/dL (70-99) 127mg/dL (70-99) 124mg/dL (70-99) White Blood Count 14.3x10^3/uL (4.0-11.0) Red Blood Count 4.14x10^6/uL (3.50-5.40) Hemoglobin 11.3g/dL (12.0-15.5) Hematocrit 34.8% (36.0-47.0) Mean Corpuscular Volume 84fL (79-100) Mean Corpuscular Hemoglobin 27pg (25-35) Mean Corpuscular Hemoglobin Concent 32g/dL (31-37) Red Cell Distribution Width 15.5% (11.5-14.5) Platelet Count 82x10^3/uL (140-400) Neutrophils (%) (Auto) 89% (31-73) Lymphocytes (%) (Auto) 7% (24-48) Monocytes (%) (Auto) 3% (0-9) Eosinophils (%) (Auto) 1% (0-3) Basophils (%) (Auto) 0% (0-3) Neutrophils # (Auto) 12.7x10^3uL (1.8-7.7) Lymphocytes # (Auto) 0.9x10^3/uL (1.0-4.8) Monocytes # (Auto) 0.5x10^3/uL (0.0-1.1) Eosinophils # (Auto) 0.2x10^3/uL (0.0-0.7) Basophils # (Auto) 0.0x10^3/uL (0.0-0.2) Sodium Level 135mmol/L (136-145) Potassium Level 3.8mmol/L (3.5-5.1) Chloride Level 101mmol/L (98-107) Carbon Dioxide Level 25mmol/L (21-32) Anion Gap 9 (6-14) Blood Urea Nitrogen 33mg/dL (7-20) Creatinine 1.1mg/dL (0.6-1.0) Estimated GFR (Cockcroft-Gault) 49.7 Glucose Level 148mg/dL (70-99) Calcium Level 9.0mg/dL (8.5-10.1) Laboratory Tests Test 09/14/16 11:44 09/14/16 16:34 09/14/16 21:31 09/15/16 04:58 Glucose (Fingerstick) 146mg/dL (70-99) 73mg/dL (70-99) 127mg/dL (70-99) White Blood Count 14.3x10^3/uL (4.0-11.0) Red Blood Count 4.14x10^6/uL (3.50-5.40) Hemoglobin 11.3g/dL (12.0-15.5) Hematocrit 34.8% (36.0-47.0) Mean Corpuscular Volume 84fL (79-100) Mean Corpuscular Hemoglobin 27pg (25-35) Mean Corpuscular Hemoglobin Concent 32g/dL (31-37) Red Cell Distribution Width 15.5% (11.5-14.5) Platelet Count 82x10^3/uL (140-400) Neutrophils (%) (Auto) 89% (31-73) Lymphocytes (%) (Auto) 7% (24-48) Monocytes (%) (Auto) 3% (0-9) Eosinophils (%) (Auto) 1% (0-3) Basophils (%) (Auto) 0% (0-3) Neutrophils # (Auto) 12.7x10^3uL (1.8-7.7) Lymphocytes # (Auto) 0.9x10^3/uL (1.0-4.8) Monocytes # (Auto) 0.5x10^3/uL (0.0-1.1) Eosinophils # (Auto) 0.2x10^3/uL (0.0-0.7) Basophils # (Auto) 0.0x10^3/uL (0.0-0.2) Sodium Level 135mmol/L (136-145) Potassium Level 3.8mmol/L (3.5-5.1) Chloride Level 101mmol/L (98-107) Carbon Dioxide Level 25mmol/L (21-32) Anion Gap 9 (6-14) Blood Urea Nitrogen 33mg/dL (7-20) Creatinine 1.1mg/dL (0.6-1.0) Estimated GFR (Cockcroft-Gault) 49.7 Glucose Level 148mg/dL (70-99) Calcium Level 9.0mg/dL (8.5-10.1) Test 09/15/16 07:27 Glucose (Fingerstick) 124mg/dL (70-99) Microbiology 09/09/16 Blood Culture - Final, Complete 09/09/16 Blood Culture Result 1 (QUIQUE) - Final, Complete 09/09/16 Blood Culture Result 2 (QUIQUE) - Final, Complete 09/09/16 Urine Culture - Final, Complete 09/09/16 Urine Culture Result 1 (QUIQUE) - Final, Complete 09/09/16 Urine Culture Result 2 (QUIQUE) - Final, Complete 09/09/16 Antimicrobic Susceptibility - Final, Complete Medications Current Medications Albuterol/ Ipratropium 3 ml 3 ml 1X ONCE NEB Last administered on 09/09/16 18 :47; Start 09/09/16 at 18:45; Stop 09/09/16 at 18:46; Status DC Sodium Chloride (Iv Sodium Chloride 0.9% 1000ml Bag) 1,000 ml @ 1,000 mls/hr 1X ONCE IV Last administered on 09/09/16 19:56; Start 09/09/16 at 18:45; Stop 09/09/16 at 19:44; Status DC Albuterol/ Ipratropium (Duoneb) 3 ml 1X ONCE NEB Last administered on 21:21; Start 09/09/16 at 20:15; Stop 09/09/16 at 20:16; Status DC Aspirin 324 mg 324 mg 1X ONCE PO Last administered on 09/09/16 20:57; Start 09/09/16 at 20:15; Stop 09/09/16 at 20:18; Status DC Piperacillin Sod/ Tazobactam Sod/ Sodium Chloride (Zosyn/Iv Sodium Chloride 0.9 % 50ml) 50 ml @ 100 mls/hr 1X ONCE IV Last administered on 09/09/16 20:57; Start 09/09/16 at 20:45; Stop 09/09/16 at 21:14; Status DC Furosemide (Lasix) 40 mg 1X ONCE IVP Last administered on 09/09/16 20:58; Start 09/09/16 at 20:45; Stop 09/09/16 at 20:46; Status DC Enoxaparin Sodium (Lovenox Per Pharmacy Treatment Dosing) 1 each PRN DAILY PRN MC SEE COMMENTS; Start 09/09/16 at 20:45; Stop 09/11/16 at 12:09; Status DC Enoxaparin Sodium (Lovenox 150mg Syringe) 130 mg Q12HR SQ ; Start 09/09/16 at 21 :00; Stop 09/11/16 at 12:09; Status DC Ondansetron HCl (Zofran) 4 mg PRN Q8HRS PRN IV NAUSEA/VOMITING; Start 09/09/16 at 20:45; Stop 09/10/16 at 20:44; Status DC Albuterol/ Ipratropium (Duoneb) 3 ml RTQID NEB Last administered on 09/11/16 11:24; Start 09/10/16 at 08:00; Stop 09/11/16 at 07:59; Status DC Acetaminophen 650 mg 650 mg PRN Q6HRS PRN PO MILD PAIN / TEMP Last administered on 09/15/16 09:14; Start 09/10/16 at 06:15 Sodium Chloride 1,000 ml @ 100 mls/hr Q10H IV Last administered on 09/12/16 04:43; Start 09/10/16 at 12:30; Stop 09/13/16 at 16:44; Status DC Piperacillin Sod/ Tazobactam Sod/ Sodium Chloride (Zosyn/Iv Sodium Chloride 0.9 % 50ml) 50 ml @ 100 mls/hr Q6HRS IV Last administered on 09/11/16 12:18; Start 09/10/16 at 13:30; Stop 09/11/16 at 12:46; Status DC Amlodipine Besylate (Norvasc) 10 mg DAILY07 PO Last administered on 09/11/16 09:35; Start 09/10/16 at 14:30; Stop 09/11/16 at 12:26; Status DC Aspirin (Ecotrin) 81 mg DAILY PO Last administered on 09/15/16 08:45; Start at 14:30 Bupropion HCl (Wellbutrin Xl) 150 mg DAILY PO Last administered on 09/15/16 08 :45; Start 09/11/16 at 09:00 Escitalopram Oxalate (Lexapro) 20 mg DAILY PO Last administered on 09/15/16 08 :44; Start 09/10/16 at 14:30 Magnesium Oxide (Magnesium Oxide) 400 mg BID PO Last administered on 09/15/16 08:44; Start 09/10/16 at 21:00 Metoprolol Succinate (Toprol Xl) 100 mg DAILY PO Last administered on 09:35; Start 09/10/16 at 14:30; Stop 09/11/16 at 12:26; Status DC Non-Formulary Medication 38 unit HS PRN SQ SEE COMMENTS; Start 09/10/16 at 13: 45; Stop 09/10/16 at 13:45; Status DC Insulin Aspart (Novolog) 20 units TIDAC SQ Last administered on 09/14/16 12:04 ; Start 09/10/16 at 16:30 Levothyroxine Sodium (Synthroid) 250 mcg DAILY07 PO Last administered on 07:29; Start 09/10/16 at 14:30 Insulin Detemir (Levemir) 38 units QHS SQ Last administered on 09/14/16 21:45 ; Start 09/10/16 at 21:00 Albuterol/ Ipratropium (Duoneb) 3 ml RTQID NEB Last administered on 09/15/16 07:55; Start 09/11/16 at 12:00 Albuterol/ Ipratropium (Duoneb) 3 ml PRN Q2HR PRN NEB SHORTNESS OF BREATH; Start 09/11/16 at 12:00; Stop 09/11/16 at 12:02; Status DC Albuterol Sulfate (Ventolin Neb Soln) 2.5 mg PRN Q2HR PRN NEB WHEEZING; Start 09/11/16 at 12:00; Status Cancel Albuterol Sulfate 2.5 mg 2.5 mg PRN Q2HRS PRN NEB SHORTNESS OF BREATH; Start at 12:00 Sodium Chloride (Iv Sodium Chloride 0.9% 500ml Bag) 500 ml @ 500 mls/hr 1X ONCE IV Last administered on 09/11/16 12:30; Start 09/11/16 at 12:30; Stop 06/18 at 13:29; Status DC Metoprolol Succinate 50 mg 50 mg DAILY PO Last administered on 09/15/16 08:45 ; Start 09/12/16 at 09:00 Meropenem 500 mg/ Sodium Chloride 50 ml @ 100 mls/hr Q8HRS IV ; Start 09/11/16 at 12:45; Stop 09/11/16 at 12:46; Status DC Meropenem/Sodium Chloride (Merrem/Iv Sodium Chloride 0.9% 50ml) 50 ml @ 100 mls /hr Q6HRS IV Last administered on 09/14/16 05:30; Start 09/11/16 at 13:00; Stop 09/14/16 at 08:36; Status DC Hydrocortisone Sodium Succinate 100 mg 100 mg Q8HRS IV Last administered on 06:17; Start 09/11/16 at 15:15; Stop 09/12/16 at 14:05; Status DC Sodium Chloride 500 ml @ 500 mls/hr 1X ONCE IV Last administered on 15:15; Start 09/11/16 at 15:15; Stop 09/11/16 at 16:14; Status DC Albumin Human (Albuminar) 50 ml @ 50 mls/hr 1X ONCE IV Last administered on 17:43; Start 09/11/16 at 17:00; Stop 09/11/16 at 17:59; Status DC Oxycodone HCl 5 mg 5 mg PRN Q6HRS PRN PO PAIN Last administered on 09/14/16 19 :16; Start 09/11/16 at 18:15 Ceftriaxone Sodium/Sodium Chloride (Rocephin/Iv Sodium Chloride 0.9% 100ml) 100 ml @ 200 mls/hr Q24H IV Last administered on 09/15/16 09:03; Start 09/14/16 at 09:00 Active Scripts Active Reported Bupropion Hcl Sr (Bupropion Hcl) 100 Mg Tablet.er 75 Mg PO BID Humalog Kwikpen (Insulin Lispro) 200 Unit/1 Ml Insuln.pen 20 Unit SQ TIDWMEALS Toprimoo Sangitaostar (Insulin Glargine,Hum.rec.anlog) 300 Unit/1 Ml Insuln.pen 38 Unit SQ HS PRN Metformin Hcl 1,000 Mg Tablet 1 Tab PO BID Levothyroxine Sodium 200 Mcg Tablet 250 Mcg PO DAILYAC Magnesium Oxide 400 Mg Tablet 1 Tab PO BID Aspir 81 (Aspirin) 81 Mg Tablet.dr 1 Tab PO DAILY Losartan-Hctz 100-12.5 Mg Tab (Losartan/Hydrochlorothiazide) 1 Each Tablet Rosuvastatin Calcium 20 Mg Tablet 20 Mg Metoprolol Succinate ( Xl ) (Metoprolol Succinate) 100 Mg Tab.er.24h 100 Mg Omeprazole 40 Mg Capsule.dr 40 Mg Escitalopram Oxalate 10 Mg Tablet 20 Mg PO Norvasc (Amlodipine Besylate) 10 Mg Tablet 10 Mg PO DAILY07 Vitals/I & O Vital Sign - Last 24 Hours 09/14/16 09/14/16 09/14/16 09/14/16 10:53 11:00 15:09 15:10 Temp 97.6 96.1 97.6 96.1 Pulse 59 62 Resp 12 14 B/P 100/63 143/67 Pulse Ox 95 96 O2 Delivery Nasal Cannula Nasal Cannula Nasal Cannula Nasal Cannula O2 Flow Rate 2.0 3.0 3.0 2.0 09/14/16 09/14/16 09/14/16 09/14/16 19:00 19:16 20:15 20:16 Temp 100.6 100.6 Pulse 83 Resp 20 20 20 B/P 113/54 Pulse Ox 95 93 94 O2 Delivery Nasal Cannula Nasal Cannula BiPAP/CPAP O2 Flow Rate 3.0 3.0 3.0 09/14/16 09/14/16 09/15/16 09/15/16 20:51 23:00 03:00 07:00 Temp 97.6 98.1 99.0 97.6 98.1 99.0 Pulse 67 59 65 Resp 20 20 14 B/P 123/58 129/64 123/61 Pulse Ox 95 97 95 96 O2 Delivery Nasal Cannula BiPAP/CPAP BiPAP/CPAP BiPAP/CPAP O2 Flow Rate 3.0 09/15/16 09/15/16 09/15/16 07:55 08:00 08:45 Pulse 65 B/P 123/61 Pulse Ox 95 O2 Delivery Nasal Cannula Nasal Cannula O2 Flow Rate 3.0 3.0 Intake and Output 09/14/16 09/14/16 09/15/16 15:00 23:00 07:00 Intake Total 420 ml 1540 ml 520 ml Balance 420 ml 1540 ml 520 ml MOOKIE VILLASENOR III DO Sep 15, 2016 10:02
[2016-09-15 11:00] VITALS: BP 118/54
--- NOTE | 2016-09-15 11:16 | PDOC ---
PULMONARY PROGRESS NOTES Subjective pt not more soa Vitals Vital Signs Date Time Temp Pulse Resp B/P Pulse Ox O2 Delivery O2 Flow Rate FiO2 09/15/16 11:08 95 Nasal Cannula 3.0 09/15/16 11:00 97.7 62 14 118/54 97.7 General: Lethargic Lungs: Clear Cardiovascular: S1 Abdomen: Soft Extremities: No Edema Skin: Warm Labs Laboratory Tests Test 09/13/16 11:45 09/13/16 16:48 09/13/16 21:16 09/14/16 01:01 Glucose (Fingerstick) 133mg/dL (70-99) 115mg/dL (70-99) 108mg/dL (70-99) 96mg/dL (70-99) Test 09/14/16 06:35 09/14/16 07:38 09/14/16 07:57 09/14/16 11:44 White Blood Count 12.0x10^3/uL (4.0-11.0) Red Blood Count 4.07x10^6/uL (3.50-5.40) Hemoglobin 11.1g/dL (12.0-15.5) Hematocrit 34.5% (36.0-47.0) Mean Corpuscular Volume 85fL (79-100) Mean Corpuscular Hemoglobin 27pg (25-35) Mean Corpuscular Hemoglobin Concent 32g/dL (31-37) Red Cell Distribution Width 15.0% (11.5-14.5) Platelet Count 78x10^3/uL (140-400) Neutrophils (%) (Auto) 85% (31-73) Lymphocytes (%) (Auto) 8% (24-48) Monocytes (%) (Auto) 6% (0-9) Eosinophils (%) (Auto) 1% (0-3) Basophils (%) (Auto) 0% (0-3) Neutrophils # (Auto) 10.2x10^3uL (1.8-7.7) Lymphocytes # (Auto) 0.9x10^3/uL (1.0-4.8) Monocytes # (Auto) 0.7x10^3/uL (0.0-1.1) Eosinophils # (Auto) 0.2x10^3/uL (0.0-0.7) Basophils # (Auto) 0.0x10^3/uL (0.0-0.2) Glucose (Fingerstick) 95mg/dL (70-99) 146mg/dL (70-99) Sodium Level 136mmol/L (136-145) Potassium Level 3.7mmol/L (3.5-5.1) Chloride Level 104mmol/L (98-107) Carbon Dioxide Level 25mmol/L (21-32) Anion Gap 7 (6-14) Blood Urea Nitrogen 42mg/dL (7-20) Creatinine 1.4mg/dL (0.6-1.0) Estimated GFR (Cockcroft-Gault) 37.6 Glucose Level 110mg/dL (70-99) Calcium Level 8.8mg/dL (8.5-10.1) Test 09/14/16 16:34 09/14/16 21:31 09/15/16 04:58 09/15/16 07:27 Glucose (Fingerstick) 73mg/dL (70-99) 127mg/dL (70-99) 124mg/dL (70-99) White Blood Count 14.3x10^3/uL (4.0-11.0) Red Blood Count 4.14x10^6/uL (3.50-5.40) Hemoglobin 11.3g/dL (12.0-15.5) Hematocrit 34.8% (36.0-47.0) Mean Corpuscular Volume 84fL (79-100) Mean Corpuscular Hemoglobin 27pg (25-35) Mean Corpuscular Hemoglobin Concent 32g/dL (31-37) Red Cell Distribution Width 15.5% (11.5-14.5) Platelet Count 82x10^3/uL (140-400) Neutrophils (%) (Auto) 89% (31-73) Lymphocytes (%) (Auto) 7% (24-48) Monocytes (%) (Auto) 3% (0-9) Eosinophils (%) (Auto) 1% (0-3) Basophils (%) (Auto) 0% (0-3) Neutrophils # (Auto) 12.7x10^3uL (1.8-7.7) Lymphocytes # (Auto) 0.9x10^3/uL (1.0-4.8) Monocytes # (Auto) 0.5x10^3/uL (0.0-1.1) Eosinophils # (Auto) 0.2x10^3/uL (0.0-0.7) Basophils # (Auto) 0.0x10^3/uL (0.0-0.2) Sodium Level 135mmol/L (136-145) Potassium Level 3.8mmol/L (3.5-5.1) Chloride Level 101mmol/L (98-107) Carbon Dioxide Level 25mmol/L (21-32) Anion Gap 9 (6-14) Blood Urea Nitrogen 33mg/dL (7-20) Creatinine 1.1mg/dL (0.6-1.0) Estimated GFR (Cockcroft-Gault) 49.7 Glucose Level 148mg/dL (70-99) Calcium Level 9.0mg/dL (8.5-10.1) Test 09/15/16 11:04 Glucose (Fingerstick) 168mg/dL (70-99) Laboratory Tests Test 09/14/16 11:44 09/14/16 16:34 09/14/16 21:31 09/15/16 04:58 Glucose (Fingerstick) 146mg/dL (70-99) 73mg/dL (70-99) 127mg/dL (70-99) White Blood Count 14.3x10^3/uL (4.0-11.0) Red Blood Count 4.14x10^6/uL (3.50-5.40) Hemoglobin 11.3g/dL (12.0-15.5) Hematocrit 34.8% (36.0-47.0) Mean Corpuscular Volume 84fL (79-100) Mean Corpuscular Hemoglobin 27pg (25-35) Mean Corpuscular Hemoglobin Concent 32g/dL (31-37) Red Cell Distribution Width 15.5% (11.5-14.5) Platelet Count 82x10^3/uL (140-400) Neutrophils (%) (Auto) 89% (31-73) Lymphocytes (%) (Auto) 7% (24-48) Monocytes (%) (Auto) 3% (0-9) Eosinophils (%) (Auto) 1% (0-3) Basophils (%) (Auto) 0% (0-3) Neutrophils # (Auto) 12.7x10^3uL (1.8-7.7) Lymphocytes # (Auto) 0.9x10^3/uL (1.0-4.8) Monocytes # (Auto) 0.5x10^3/uL (0.0-1.1) Eosinophils # (Auto) 0.2x10^3/uL (0.0-0.7) Basophils # (Auto) 0.0x10^3/uL (0.0-0.2) Sodium Level 135mmol/L (136-145) Potassium Level 3.8mmol/L (3.5-5.1) Chloride Level 101mmol/L (98-107) Carbon Dioxide Level 25mmol/L (21-32) Anion Gap 9 (6-14) Blood Urea Nitrogen 33mg/dL (7-20) Creatinine 1.1mg/dL (0.6-1.0) Estimated GFR (Cockcroft-Gault) 49.7 Glucose Level 148mg/dL (70-99) Calcium Level 9.0mg/dL (8.5-10.1) Test 09/15/16 07:27 09/15/16 11:04 Glucose (Fingerstick) 124mg/dL (70-99) 168mg/dL (70-99) Medications Active Scripts Medications Dose Route/Sig Days Date Category Bupropion Hcl Sr (Bupropion Hcl) 100 Mg Tablet.er 75 Mg PO BID 09/10/16 Reported Humalog Kwikpen (Insulin Lispro) 200 Unit/1 Ml Insuln.pen 20 Unit SQ TIDWMEALS 09/10/16 Reported Touwilmar Quesadaostjustin (Insulin Glargine,Hum.rec.anlog) 300 Unit/1 Ml Insuln.pen 38 Unit SQ HS PRN 09/10/16 Reported Metformin Hcl 1,000 Mg Tablet 1 Tab PO BID 09/10/16 Reported Levothyroxine Sodium 200 Mcg Tablet 250 Mcg PO DAILYAC 09/10/16 Reported Magnesium Oxide 400 Mg Tablet 1 Tab PO BID 09/10/16 Reported Aspir 81 (Aspirin) 81 Mg Tablet.dr 1 Tab PO DAILY 09/10/16 Reported Losartan-Hctz 100-12.5 Mg Tab (Losartan/Hydrochlorothiazide) 1 Each Tablet 09/09/16 Reported Rosuvastatin Calcium 20 Mg Tablet 20 Mg 09/09/16 Reported Metoprolol Succinate ( Xl ) (Metoprolol Succinate) 100 Mg Tab.er.24h 100 Mg 09/09/16 Reported Omeprazole 40 Mg Capsule.dr 40 Mg 09/09/16 Reported Escitalopram Oxalate 10 Mg Tablet 20 Mg PO 01/24/14 Reported Norvasc (Amlodipine Besylate) 10 Mg Tablet 10 Mg PO DAILY07 09/05/13 Reported Impression . 1. Acute hypoxic respiratory failure, multifactorial improving 2. GRAM NEGATIVE BACTEREMIA/SEPSIS 3. Acute kidney injury, per nephro 4. Mildly increased troponin level. 5. No significant history of tobacco use. 6. History of obstructive sleep apnea on home CPAP. 7. No evidence of pulmonary embolism by V/Q scan. Plan . resp status is compensated antibx per ID home cpap feels better LIVIER ROMAN MD Sep 15, 2016 11:16
[2016-09-15 11:42] LABS: % EOS 1 % (0-5)
[2016-09-15 11:43] LABS: ANISOCYTOSIS SLIGHT; PLT ESTIMATE DECREASED (ADEQUATE)
[2016-09-15 11:44] LABS: TARGET CELLS FEW; TOXIC GRANULATION SLIGHT
--- NOTE | 2016-09-15 12:08 | PDOC ---
Renal-Progress Notes Subjective Notes Notes NONE History of Present Illness Hx of present illness BETTER Vitals Vitals Vital Signs Date Time Temp Pulse Resp B/P Pulse Ox O2 Delivery O2 Flow Rate FiO2 09/15/16 11:08 95 Nasal Cannula 3.0 09/15/16 11:00 97.7 62 14 118/54 97.7 Weight Weight [ ] I.O. Intake and Output Intake and Output 09/15/16 07:00 Intake Total 2480 ml Balance 2480 ml Intake Oral 2480 ml # Voids 9 Labs Labs Laboratory Tests Test 09/14/16 16:34 09/14/16 21:31 09/15/16 04:58 09/15/16 07:27 Glucose (Fingerstick) 73mg/dL (70-99) 127mg/dL (70-99) 124mg/dL (70-99) White Blood Count 14.3x10^3/uL (4.0-11.0) Red Blood Count 4.14x10^6/uL (3.50-5.40) Hemoglobin 11.3g/dL (12.0-15.5) Hematocrit 34.8% (36.0-47.0) Mean Corpuscular Volume 84fL (79-100) Mean Corpuscular Hemoglobin 27pg (25-35) Mean Corpuscular Hemoglobin Concent 32g/dL (31-37) Red Cell Distribution Width 15.5% (11.5-14.5) Platelet Count 82x10^3/uL (140-400) Neutrophils (%) (Auto) 89% (31-73) Lymphocytes (%) (Auto) 7% (24-48) Monocytes (%) (Auto) 3% (0-9) Eosinophils (%) (Auto) 1% (0-3) Basophils (%) (Auto) 0% (0-3) Neutrophils # (Auto) 12.7x10^3uL (1.8-7.7) Lymphocytes # (Auto) 0.9x10^3/uL (1.0-4.8) Monocytes # (Auto) 0.5x10^3/uL (0.0-1.1) Eosinophils # (Auto) 0.2x10^3/uL (0.0-0.7) Basophils # (Auto) 0.0x10^3/uL (0.0-0.2) Segmented Neutrophils % 61% (35-66) Band Neutrophils % 25% (0-9) Lymphocytes % 8% (24-48) Monocytes % 5% (0-10) Eosinophils % 1% (0-5) Toxic Granulation Slight Platelet Estimate Decreased (ADEQUATE) Anisocytosis Slight Target Cells Few Sodium Level 135mmol/L (136-145) Potassium Level 3.8mmol/L (3.5-5.1) Chloride Level 101mmol/L (98-107) Carbon Dioxide Level 25mmol/L (21-32) Anion Gap 9 (6-14) Blood Urea Nitrogen 33mg/dL (7-20) Creatinine 1.1mg/dL (0.6-1.0) Estimated GFR (Cockcroft-Gault) 49.7 Glucose Level 148mg/dL (70-99) Calcium Level 9.0mg/dL (8.5-10.1) Test 09/15/16 11:04 Glucose (Fingerstick) 168mg/dL (70-99) Micro Micro Microbiology 09/09/16 Blood Culture - Final, Complete 09/09/16 Blood Culture Result 1 (QUIQUE) - Final, Complete 09/09/16 Blood Culture Result 2 (QUIQUE) - Final, Complete 09/09/16 Urine Culture - Final, Complete 09/09/16 Urine Culture Result 1 (QUIQUE) - Final, Complete 09/09/16 Urine Culture Result 2 (QUIQUE) - Final, Complete 09/09/16 Antimicrobic Susceptibility - Final, Complete Review of Systems Constitutional: yes: alert, no symptom reported, weakness Physical Exam General Appearance: no apparent distress Skin: warm Respiratory: bilateral CTA Heart: S1S2, RRR Abdomen: soft Extremities: pulses present Neurology: alert, oriented Musculoskeletal: Osteoarthritis Assessment Assessment IMP AMINTA-RESOLVED SEPSIS UTI LEFT RENAL CYST PLAN ANTIBIOTICS OFF IVF'S NOW ALPA BARBER MD Sep 15, 2016 12:08
[2016-09-15 14:57] VITALS: BP 130/63
--- NOTE | 2016-09-21 13:08 | DS ---
DATE OF DISCHARGE: 09/15/2016 ADMISSION DIAGNOSES: Hypoxia, respiratory failure. DISCHARGE DIAGNOSES: Resolved respiratory failure, multifactorial including an element of chronic obstructive pulmonary disease, pneumonia, and congestive heart failure. HOSPITAL COURSE: The patient is a pleasant 66-year-old female presented with hypoxic. She was admitted. We gave her breathing treatments, oxygen, diuretics, steroids, and antibiotics. We consulted pulmonary medicine. Basically, she did well. We discharged to [facility]. DISPOSITION: Skilled. ACTIVITY: As tolerated. DIET: Low sodium. MEDICATIONS: Please see the MRAD. TOTAL TIME ON DISCHARGE: 33 minutes. MOOKIE VILLASENOR DO DR: NOHEMI/crys JOB#: [id number] / [id number]
== END 2016-09-15 16:30 | DRG 871 ==
LOC: ER 18:31 → 2 NORTH 20:21 → 5 SOUTH 09-13 22:00
PROVIDERS: ADMIT Internal Medicine; ATTEND Internal Medicine
PROC: 5A09357 Assistance with Respiratory Ventilation, Less than 24 Consecutive Hours, Continuous Positive Airway Pressure (ICD-10-PCS; principal; 2016-09-11)
DX: A41.59 Other Gram-negative sepsis (principal); G93.40 Encephalopathy, unspecified; J96.01 Acute respiratory failure with hypoxia; I21.4 Non-ST elevation (NSTEMI) myocardial infarction; J18.9 Pneumonia, unspecified organism; E66.2 Morbid (severe) obesity with alveolar hypoventilation; N18.4 Chronic kidney disease, stage 4 (severe); I50.32 Chronic diastolic (congestive) heart failure; N17.9 Acute kidney failure, unspecified; N39.0 Urinary tract infection, site not specified; Z68.42 Body mass index [BMI] 45.0-49.9, adult; I13.0 Hypertensive heart and chronic kidney disease with heart failure and stage 1 through stage 4 chronic kidney disease, or unspecified chronic kidney disease; D69.59 Other secondary thrombocytopenia; E03.9 Hypothyroidism, unspecified; E11.22 Type 2 diabetes mellitus with diabetic chronic kidney disease; E11.65 Type 2 diabetes mellitus with hyperglycemia; E78.5 Hyperlipidemia, unspecified; K21.9 Gastro-esophageal reflux disease without esophagitis; F32.9 Major depressive disorder, single episode, unspecified; G43.909 Migraine, unspecified, not intractable, without status migrainosus; M19.90 Unspecified osteoarthritis, unspecified site; Z82.49 Family history of ischemic heart disease and other diseases of the circulatory system; Z85.42 Personal history of malignant neoplasm of other parts of uterus; Z86.79 Personal history of other diseases of the circulatory system; Z88.5 Allergy status to narcotic agent; Z88.8 Allergy status to other drugs, medicaments and biological substances; Z87.440 Personal history of urinary (tract) infections; Z90.49 Acquired absence of other specified parts of digestive tract
CPT/HCPCS: 36415; 36600; 71010; 76770; 80048; 80053; 80061; 80076; 81001; 82570; 82805; 82947; 83605; 83690; 83735; 83880; 84100; 84300; 84484; 84550; 85007; 85027; 85379; 85384; 85610; 85730; 87040; 87086; 87186; 87205; 87804; 93005; 93922; 93970; 94250; 94640; 94660; 94760; 96361; 96365; 96375; J0696; J1720; J1815; J1940; J2185; J2543; J7030; J7040; J7620; P9046; 97116; 99285-25

== ENCOUNTER → 2017-10-16 | Outpatient (CLI) | payer MEDICARE | END | disposition home or self-care (01) | LOC: ECHO 14:03 | DX: I36.1 Nonrheumatic tricuspid (valve) insufficiency (principal); I13.0 Hypertensive heart and chronic kidney disease with heart failure and stage 1 through stage 4 chronic kidney disease, or unspecified chronic kidney disease; E11.22 Type 2 diabetes mellitus with diabetic chronic kidney disease; I50.32 Chronic diastolic (congestive) heart failure; N18.4 Chronic kidney disease, stage 4 (severe); E66.9 Obesity, unspecified | CPT/HCPCS: 93306 ==

== ENCOUNTER 2018-09-25 20:58 | Inpatient (IN) | payer OTHER, MEDICARE ==
[~2018-09-25] VITALS: Ht 165.1 cm; Wt 139.7 kg
[~2018-09-25 20:58] MED LIST changes: +AMLO2.5T2 PO; +ASPI-482 PO; +ASPI325T8; +ASPI325T8 PO; +BUPR100T8 PO; +CRESTOR20 MG PO; -ESCI10TA PO; +ESCITALOPRAM OX10 MG PO; +HYDR12.58 PO; +INSU100I17; +INSU200I SQ; +INSU300I; +INSU300I SQ; +LEVO125T5; +LEVO200T5 PO; +LEVO750T31 PO; +LOSA100T14 PO; -LOSA100T6 PO; +LOSA1TAB25 PO; +MAGN400T22; +MAGN400T3 PO; +METF10007 PO; +METF500T16 PO; -METF500T4 PO; +METO-247; +OMEP40CA5; +PANT40TA3 PO; +ROSUVASTATIN CA20 MG
[2018-09-25 21:59] LABS: BASO % 1 % (0-3); EOS # 0.2 x10^3/uL (0.0-0.7); EOS % 3 % (0-3); HEMATOCRIT 42.4 % (36.0-47.0); LYMPH # 1.3 x10^3/uL (1.0-4.8); LYMPH % 18 % (24-48); MEAN CORPUSCULAR HEMOGLOBIN 30 pg (25-35); MEAN CORPUSCULAR HGB CONC 33 g/dL (31-37); MEAN CORPUSCULAR VOLUME 90 fL (79-100); MONO # 0.6 x10^3/uL (0.0-1.1); MONO % 8 % (0-9); NEUT # 4.9 x10^3uL (1.8-7.7); NEUT % 70 % (31-73); PLATELET COUNT 151 x10^3/uL (140-400); RED BLOOD COUNT 4.71 x10^6/uL (3.50-5.40); WHITE BLOOD COUNT 7.1 x10^3/uL (4.0-11.0)
[2018-09-25 22:09] LABS: GFR 55.1
[2018-09-25 22:17] LABS: ALBUMIN 3.3 g/dL (3.4-5.0); ALBUMIN/GLOBULIN RATIO 0.8 (1.0-1.7); TOTAL BILIRUBIN 0.3 mg/dL (0.2-1.0); TOTAL PROTEIN 7.7 g/dL (6.4-8.2)
--- NOTE | 2018-09-25 22:52 | RAD ---
EXAM: CT Abdomen without IV contrast CLINICAL HISTORY: epigastric pain x 4 months, non contrast per order, no priors. COMPARISON: none TECHNIQUE: Helical CT of the abdomen without intravenous contrast. Axial, coronal and sagittal reformatted images were generated. PQRS compliance statement - One or more of the following individualized dose reduction techniques were utilized for this study: 1. Automated exposure control 2. Adjustment of the mA and/or kV according to patient size 3. Use of iterative reconstruction technique FINDINGS: Lack of intravenous contrast limits evaluation of solid organs, vasculature, and lymph nodes. Lower chest: Coronary calcifications are seen. Small hiatal hernia. Abdomen: No focal liver lesion. Liver measures 19.6 cm in length, enlarged. There is been a cholecystectomy. No biliary ductal dilatation. Spleen is unremarkable. Pancreas is normal. A 1.5 cm lipid rich left adrenal adenoma. Multiple bilateral renal calculi are seen the largest is in the interpolar right kidney measuring 3.7 cm. No hydroureter. No definite calculus in the proximal ureter. No abdominal ascites. Moderate colonic stool content is seen. No abnormal small or large bowel dilatation. Visualized portion of the appendix is normal. Aortic calcifications are seen. No abdominal lymphadenopathy. Bones: Degenerative changes of the spine are seen. IMPRESSION: 1. Liver is mildly enlarged. 2. Multiple bilateral nonobstructing renal calculi are seen. 3. The largest is in the interpolar right kidney extending to the renal pelvis measuring 3.7 cm. Associated inflammatory changes are seen about the right renal pelvis. Electronically signed by: Vic Celis MD (09/25/2018 10:49 PM) [facility]
--- NOTE | 2018-09-25 23:06 | PHYS DOC ---
Past Medical History Past Medical History: Cancer, Depression, Diabetes-Type II, Heart Disease, Hypertension, Hypothyroid, Other Additional Past Medical Histor: uterine CA, KARENA (SARY CARRENO APRN) Past Surgical History: Cancer Surgery, Cholecystectomy, Other Additional Past Surgical Histo: arthrocopic knee, 2 heart caths (SARY CARRENO APRN) Alcohol Use: None Drug Use: None (SARY CARRENO APRN) Adult General Chief Complaint Chief Complaint: CHEST WALL PAIN HPI HPI Patient is a 68 year old female who presents with chest wall pain she states extends into her left upper abdomen. The patient states that she saw her primary care provider in July and was worked up with no findings for her pain. She is noncompliant on her medications. She states that she has not taken any of her blood pressure medicines today. She will intermittently stop using her insulin is because she doesn't want stick herself. She denies diaphoresis or shortness of air. She has had her gallbladder removed. She denies nausea, vomiting, diarrhea or constipation. (SARY CARRENO APRN) Review of Systems Review of Systems Constitutional: Denies fever or chills [] Eyes: Denies change in visual acuity, redness, or eye pain [] HENT: Denies nasal congestion or sore throat [] Respiratory: Denies cough or shortness of breath [] Cardiovascular: No additional information not addressed in HPI [] GI: See history of present illness : Denies dysuria or hematuria [] Musculoskeletal: Denies back pain or joint pain [] Integument: Denies rash or skin lesions [] Neurologic: Denies headache, focal weakness or sensory changes [] Endocrine: Denies polyuria or polydipsia [] All other systems were reviewed and found to be within normal limits, except as documented in this note. (SARY CARRENO APRN) Current Medications Current Medications Current Medications Medications (Trade) Dose Ordered Sig/Nader Start Time Stop Time Status Last Admin Dose Admin Fentanyl Citrate (Fentanyl 2ml Vial) 50 mcg 1X ONCE 09/26/18 00:00 09/26/18 00:01 DC 09/26/18 00:01 50 MCG Hydralazine HCl (Apresoline Inj) 10 mg 1X ONCE 09/26/18 00:30 09/26/18 00:31 DC 09/26/18 00:35 10 MG Metoprolol Tartrate (Lopressor Vial) 5 mg 1X ONCE 09/25/18 23:15 09/25/18 23:16 DC 09/25/18 23:32 5 MG (REBEKA TORRES APRN) Allergies Allergies Allergies Coded Allergies Type Severity Reaction Last Updated Verified morphine Allergy Intermediate tolerates Dilaudid & Percocet 09/11/16 Yes lovastatin Adverse Reaction Intermediate CAUSES MUSCLE SPASMS 09/11/16 Yes (REBEKA TORRES APRN) Physical Exam Physical Exam Constitutional: Well developed, well nourished, no acute distress, non-toxic appearance. [] Cardiovascular:Heart rate regular rhythm, no murmur [] Lungs & Thorax: Bilateral breath sounds clear to auscultation [] Abdomen: Bowel sounds normal, soft, mild right upper quadrant and epigastric tenderness with no guarding, no masses, no pulsatile masses. [] Skin: Warm, dry, no erythema, no rash. [] Back: No tenderness, no CVA tenderness. [] Extremities: No tenderness, no cyanosis, no clubbing, ROM intact, no edema. [] Neurologic: Alert and oriented X 3, normal motor function, normal sensory function, no focal deficits noted. [] Psychologic: Affect normal, judgement normal, mood normal. [] (SARY CARRENO APRN) Current Patient Data Vital Signs Vital Signs Date Time Temp Pulse Resp B/P (MAP) Pulse Ox O2 Delivery O2 Flow Rate FiO2 09/26/18 00:35 61 214/83 09/25/18 22:17 20 92 Room Air 09/25/18 21:46 98.6 98.6 (REBEKA TORRES APRN) Lab Values Laboratory Tests Test 09/25/18 21:41 09/25/18 23:01 White Blood Count 7.1 x10^3/uL (4.0-11.0) Red Blood Count 4.71 x10^6/uL (3.50-5.40) Hemoglobin 14.0 g/dL (12.0-15.5) Hematocrit 42.4 % (36.0-47.0) Mean Corpuscular Volume 90 fL (79-100) Mean Corpuscular Hemoglobin 30 pg (25-35) Mean Corpuscular Hemoglobin Concent 33 g/dL (31-37) Red Cell Distribution Width 14.0 % (11.5-14.5) Platelet Count 151 x10^3/uL (140-400) Neutrophils (%) (Auto) 70 % (31-73) Lymphocytes (%) (Auto) 18 % (24-48) L Monocytes (%) (Auto) 8 % (0-9) Eosinophils (%) (Auto) 3 % (0-3) Basophils (%) (Auto) 1 % (0-3) Neutrophils # (Auto) 4.9 x10^3uL (1.8-7.7) Lymphocytes # (Auto) 1.3 x10^3/uL (1.0-4.8) Monocytes # (Auto) 0.6 x10^3/uL (0.0-1.1) Eosinophils # (Auto) 0.2 x10^3/uL (0.0-0.7) Basophils # (Auto) 0.0 x10^3/uL (0.0-0.2) Sodium Level 136 mmol/L (136-145) Potassium Level 4.0 mmol/L (3.5-5.1) Chloride Level 98 mmol/L (98-107) Carbon Dioxide Level 33 mmol/L (21-32) H Anion Gap 5 (6-14) L Blood Urea Nitrogen 13 mg/dL (7-20) Creatinine 1.0 mg/dL (0.6-1.0) Estimated GFR (Cockcroft-Gault) 55.1 BUN/Creatinine Ratio 13 (6-20) Glucose Level 337 mg/dL (70-99) H Calcium Level 9.0 mg/dL (8.5-10.1) Total Bilirubin 0.3 mg/dL (0.2-1.0) Aspartate Amino Transferase (AST) 75 U/L (15-37) H Alanine Aminotransferase (ALT) 61 U/L (14-59) H Alkaline Phosphatase 70 U/L (46-116) Creatine Kinase 279 U/L (26-192) H Creatine Kinase MB (Mass) 3.0 ng/mL (0.0-3.6) Creatine Kinase MB Relative Index 1.1 % (0-4) Troponin I Quantitative < 0.017 ng/mL (0.000-0.055) Total Protein 7.7 g/dL (6.4-8.2) Albumin 3.3 g/dL (3.4-5.0) L Albumin/Globulin Ratio 0.8 (1.0-1.7) L Urine Collection Type Void Urine Color Yellow Urine Clarity Cloudy Urine pH 7.5 Urine Specific [place] 1.020 Urine Protein >=300 mg/dL (NEG-TRACE) Urine Glucose (UA) >=1000 mg/dL (NEG) Urine Ketones (Stick) Negative mg/dL (NEG) Urine Blood Large (NEG) Urine Nitrite Negative (NEG) Urine Bilirubin Negative (NEG) Urine Urobilinogen Dipstick 1.0 mg/dL (0.2 mg/dL) Urine Leukocyte Esterase Moderate (NEG) Urine RBC Tntc /HPF (0-2) Urine WBC Tntc /HPF (0-4) Urine Squamous Epithelial Cells Mod /LPF Urine Bacteria Few /HPF (0-FEW) Laboratory Tests 09/25/18 21:41 Laboratory Tests 09/25/18 21:41 (REBEKA TORRES APRN) EKG EKG [] (SARY CARRENO APRN) Radiology/Procedures Radiology/Procedures [] (SARY CARRENO APRN) Course & Med Decision Making Course & Med Decision Making Pertinent Labs and Imaging studies reviewed. (See chart for details) []The patient's CT had negative findings. She was given 5 mg of Lopressor in the emergency department for her blood pressure. We are still awaiting urinalysis. This patient has been signed over to Rebeka Torres APRN. (SARY CARRENO APRN) Course & Med Decision Making 23:00 assumed care.UA noted for UTI patient has right flank tenderness she likely has pyelonephritis considering her pain. BP still elevated in the low 200s/low 100s. Hydralazine ordered. Patient still complaining about pain, given morphine in the ED. Patient will be admitted. Dr. Hawkins will give report to Dr. Katz in the morning. Routine cardiloogy consult placed. Started on Rocephine for UTI (REBEKA TORRES APRN) Dragon Disclaimer Dragon Disclaimer This electronic medical record was generated, in whole or in part, using a voice recognition dictation system. (SARY CARRENO APRN) Departure Departure Impression: Primary Impression: Pyelonephritis Additional Impressions: Chest pain Accelerated hypertension Hyperglycemia Disposition: 09 ADMITTED INPATIENT Condition: STABLE Referrals: MEI MOCK MD (PCP) Problem Qualifiers Additional Impressions: Chest pain Chest pain type: unspecified Qualified Codes: R07.9 - Chest pain, unspecified SARY CARRENO GAS F[employer]NACE INSTALLER Sep 25, 2018 23:06 REBEKA TORRES G[employer] INSTALLER Sep 26, 2018 01:31
[2018-09-25 23:08] LABS: BILIRUBIN,URINE NEGATIVE (NEG); CLARITY,URINE CLOUDY; COLOR,URINE YELLOW; NITRITE,URINE NEGATIVE (NEG); PH,URINE 7.5; PROTEIN,URINE >=300 mg/dL (NEG-TRACE)
[2018-09-25] MEDS ORDERED: METOPROLOL TARTRATE 5 MG/5 ML VIAL. IVP ONE (23:15)
[2018-09-25 23:21] LABS: BACTERIA,URINE FEW /HPF (0-FEW); RBC,URINE TNTC /HPF (0-2); SQUAMOUS EPITHELIAL CELL,UR MOD /LPF; WBC,URINE TNTC /HPF (0-4)
[2018-09-26] VITALS (7 sets, daily range): BP systolic 159–288; BP diastolic 70–99
[2018-09-26] MEDS ORDERED: fentaNYL PF VIAL 100 MCG/2 ML VIAL IV ONE
[2018-09-26] MEDS ORDERED: hydrALAZINE 20 MG/ML VIAL. IVP ONE (00:30)
--- NOTE | 2018-09-26 00:34 | RAD ---
EXAM: AP View of the chest DATE: 09/25/2018 9:47 PM INDICATION: CHEST PAIN x4 MONTHS. COMPARISON: 11/22/2017, 02/06/2017 FINDINGS/ IMPRESSION: Heart is moderately enlarged. Aorta is tortuous. Prominence of pulmonary arterial trunk may be seen with pulmonary arterial hypertension. No lobar consolidation. No pleural effusion or pneumothorax. Electronically signed by: Vic Celis MD (09/26/2018 12:31 AM) [facility]
[2018-09-26] MEDS ORDERED: ACETAMINOPHEN 325 MG TABLET. PO PRN (01:45)
[2018-09-26] MEDS ORDERED: INSULIN REGULAR 100 UNIT/ML 3ML VIAL. IV ONE (01:45)
[2018-09-26] MEDS ORDERED: DEXTROSE 50% 25 GM / 50ML DISP.SYRIN. IV PRN ×2 (01:45→16:45)
[2018-09-26] MEDS ORDERED: NITROGLYCERIN SUBLINGUAL 0.4 MG BOTTLE OF 25. SL PRN (01:45)
[2018-09-26] MEDS ORDERED: ONDANSETRON PF 4 MG/2 ML VIAL. IV PRN (01:45)
[2018-09-26] MEDS ORDERED: cefTRIAXone IV Push 1 GM VIAL. IVP ONE (01:45)
[2018-09-26] MEDS: cloNIDine HCL 0.1 MG TABLET PO PRN ×2 (02:23→15:23)
[2018-09-26] MEDS ORDERED: LABETALOL 20 MG/4 ML DISP.SYRIN. IVP ONE (03:30)
--- NOTE | 2018-09-26 04:11 | EKG ---
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
[2018-09-26] MEDS: diphenhydrAMINE HCL 25 MG CAPSULE PO PRN (04:31)
[2018-09-26] MEDS ORDERED: TRAZ-118 PO (04:59)
[2018-09-26] MEDS ORDERED: TRAZ-86 PO (04:59)
[2018-09-26] MEDS: fentaNYL PF VIAL 100 MCG/2 ML VIAL IV PRN ×2 (05:41→12:07)
[2018-09-26] MEDS: INSULIN LISPRO 300 UNITS/3 ML INSULN.PEN. SQ SCH ×5 (08:42→17:42)
--- NOTE | 2018-09-26 09:48 | PDOC2 ---
JJ RAMÍREZ VENEREAL DISEASE INVESTIGATOR 09/26/18 0948: CARDIAC CONSULT DATE OF CONSULT Date of Consult DATE: 09/26/18 TIME: 09:28 REASON FOR CONSULT Reason for Consult: Chest pain REFERRING PHYSICIAN Referring Physician: Renzo SOURCE Source: Chart review, Patient HISTORY OF PRESENT ILLNESS HISTORY OF PRESENT ILLNESS This is a pleasant 68 yo female admitted for complains of chest pain. Denies any dizziness or passing out. Reports that this chest pain is sharp starting to her lower right underneath ribcage going to left side to left flank then back to lower mid chest. "Like a knife cutting through". No jaw tightness or arm discomfort. No fever or chils. No nausea or vomiting. Reports no palpitations nor diaphoresis. Attorney significant SOA. Verbalized that she has been having this chest discomfort since June last year and finally it just became unbearable that it wakes her up at night. Reports that she has been skipping her meds and has not been complaint with her DM diet. PAST MEDICAL HISTORY Past Medical History Cardiovascular: HTN, Hyperlipidemia, Other (dilated ascending aorta) Pulmonary: Other (KARENA with CPAP) CENTRAL NERVOUS SYSTEM: CVA GI: GERD Heme/Onc: Cancer (uterine ) Hepatobiliary: No pertinent hx Psych: Anxiety, Depression Musculoskeletal: Osteoarthritis Infectious disease: No pertinent hx ENT: No pertinent hx Renal/: UTI Endocrine: Diabetes, Hypothyroidism Dermatology: No pertinent hx PAST SURGICAL HISTORY Past Surgical History Cholecystectomy, Other (right knee sx), hysterectomy Past Surgical History: Hysterectomy FAMILY HISTORY Family History Heart Disease, Hypertension SOCIAL HISTORY Smoke: No ALCOHOL: none Drugs: None Lives: with Family CURRENT MEDICATIONS CURRENT MEDICATIONS Current Medications Medications (Trade) Dose Ordered Sig/Nader Route PRN Reason Start Time Stop Time Status Last Admin Dose Admin Metoprolol Tartrate (Lopressor Vial) 5 mg 1X ONCE IVP 09/25/18 23:15 09/25/18 23:16 DC 09/25/18 23:32 Fentanyl Citrate (Fentanyl 2ml Vial) 50 mcg 1X ONCE IV 09/26/18 00:00 09/26/18 00:01 DC 09/26/18 00:01 Hydralazine HCl (Apresoline Inj) 10 mg 1X ONCE IVP 09/26/18 00:30 09/26/18 00:31 DC 09/26/18 00:35 Insulin Human Regular (HumuLIN R VIAL) 6 unit 1X ONCE IV 09/26/18 01:45 09/26/18 01:46 DC 09/26/18 02:20 Fentanyl Citrate (Fentanyl 2ml Vial) 50 mcg PRN Q1HR PRN IV PAIN 09/26/18 01:45 09/27/18 01:44 09/26/18 05:41 Insulin Human Lispro (HumaLOG) 0-7 UNITS TIDWMEALS SQ 09/26/18 08:00 09/26/18 08:42 Ceftriaxone Sodium (Rocephin) 1 gm 1X ONCE IVP 09/26/18 01:45 09/26/18 01:46 DC 09/26/18 02:20 Clonidine HCl (Catapres) 0.1 mg PRN Q8HRS PRN PO HYPERTENSION, SEE COMMENTS 09/26/18 01:45 09/26/18 02:23 Labetalol HCl (Normodyne Iv Push) 20 mg 1X ONCE IVP 09/26/18 03:30 09/26/18 03:32 DC 09/26/18 03:59 Diphenhydramine HCl (Benadryl) 25 mg PRN Q6HRS PRN PO ITCHING 09/26/18 04:30 09/26/18 04:31 ALLERGIES ALLERGIES: Coded Allergies: morphine (Verified Allergy, Intermediate, tolerates Dilaudid & Percocet, ) ceftriaxone (Verified Allergy, Mild, rash, 09/26/18) lovastatin (Verified Adverse Reaction, Intermediate, CAUSES MUSCLE SPASMS , 09/11/16) ROS Review of System 14 point ROS evaluated with pertinent positives noted per HPI PHYSICAL EXAM General: Alert, Oriented X3, Cooperative, No acute distress HEENT: Mucous membr. moist/pink Lungs: Other Heart: Regular rate (SR), Normal S1, Normal S2, Other (2/6 systolic murmur to LLS border) Abdomen: Soft, No tenderness, Other (obese) Extremities: No cyanosis, Other (trace to 1+ pitting leg edema) Skin: No breakdown, No significant lesion Neuro: Normal speech, Sensation intact Psych/Mental Status: Mental status NL, Mood NL MUSCULOSKELETAL: Osteoarthritic changes both hands VITALS VITALS Vital Signs Date Time Temp Pulse Resp B/P (MAP) Pulse Ox O2 Delivery O2 Flow Rate FiO2 09/26/18 08:00 Room Air 09/26/18 07:00 97.6 57 18 186/84 (118) 96 97.6 LABS Lab: Laboratory Tests Test 09/25/18 21:41 09/25/18 23:01 09/26/18 02:47 09/26/18 05:40 White Blood Count 7.1 x10^3/uL (4.0-11.0) Red Blood Count 4.71 x10^6/uL (3.50-5.40) Hemoglobin 14.0 g/dL (12.0-15.5) Hematocrit 42.4 % (36.0-47.0) Mean Corpuscular Volume 90 fL (79-100) Mean Corpuscular Hemoglobin 30 pg (25-35) Mean Corpuscular Hemoglobin Concent 33 g/dL (31-37) Red Cell Distribution Width 14.0 % (11.5-14.5) Platelet Count 151 x10^3/uL (140-400) Neutrophils (%) (Auto) 70 % (31-73) Lymphocytes (%) (Auto) 18 % (24-48) Monocytes (%) (Auto) 8 % (0-9) Eosinophils (%) (Auto) 3 % (0-3) Basophils (%) (Auto) 1 % (0-3) Neutrophils # (Auto) 4.9 x10^3uL (1.8-7.7) Lymphocytes # (Auto) 1.3 x10^3/uL (1.0-4.8) Monocytes # (Auto) 0.6 x10^3/uL (0.0-1.1) Eosinophils # (Auto) 0.2 x10^3/uL (0.0-0.7) Basophils # (Auto) 0.0 x10^3/uL (0.0-0.2) Sodium Level 136 mmol/L (136-145) Potassium Level 4.0 mmol/L (3.5-5.1) Chloride Level 98 mmol/L (98-107) Carbon Dioxide Level 33 mmol/L (21-32) Anion Gap 5 (6-14) Blood Urea Nitrogen 13 mg/dL (7-20) Creatinine 1.0 mg/dL (0.6-1.0) Estimated GFR (Cockcroft-Gault) 55.1 BUN/Creatinine Ratio 13 (6-20) Glucose Level 337 mg/dL (70-99) Calcium Level 9.0 mg/dL (8.5-10.1) Total Bilirubin 0.3 mg/dL (0.2-1.0) Aspartate Amino Transf (AST/SGOT) 75 U/L (15-37) Alanine Aminotransferase (ALT/SGPT) 61 U/L (14-59) Alkaline Phosphatase 70 U/L (46-116) Creatine Kinase 279 U/L (26-192) Creatine Kinase MB (Mass) 3.0 ng/mL (0.0-3.6) Creatine Kinase MB Relative Index 1.1 % (0-4) Troponin I Quantitative < 0.017 ng/mL (0.000-0.055) < 0.017 ng/mL (0.000-0.055) 0.026 ng/mL (0.000-0.055) Total Protein 7.7 g/dL (6.4-8.2) Albumin 3.3 g/dL (3.4-5.0) Albumin/Globulin Ratio 0.8 (1.0-1.7) Urine Collection Type Void Urine Color Yellow Urine Clarity Cloudy Urine pH 7.5 Urine Specific [place] 1.020 Urine Protein >=300 mg/dL (NEG-TRACE) Urine Glucose (UA) >=1000 mg/dL (NEG) Urine Ketones (Stick) Negative mg/dL (NEG) Urine Blood Large (NEG) Urine Nitrite Negative (NEG) Urine Bilirubin Negative (NEG) Urine Urobilinogen Dipstick 1.0 mg/dL (0.2 mg/dL) Urine Leukocyte Esterase Moderate (NEG) Urine RBC Tntc /HPF (0-2) Urine WBC Tntc /HPF (0-4) Urine Squamous Epithelial Cells Mod /LPF Urine Bacteria Few /HPF (0-FEW) Test 09/26/18 07:37 Glucose (Fingerstick) 294 mg/dL (70-99) IMAGES IMAGES IMPRESSION: 1. Liver is mildly enlarged. 2. Multiple bilateral nonobstructing renal calculi are seen. 3. The largest is in the interpolar right kidney extending to the renal pelvis measuring 3.7 cm. Associated inflammatory changes are seen about the right renal pelvis. DATE: 09/25/182248 ECHOCARDIOGRAM ECHOCARDIOGRAM <Conclusion> Technically difficult study. The left ventricle is normal size. The left ventricular systolic function is normal and the ejection fraction is within normal range. Left ventricular ejection fraction of 55-60%. There is mild concentric left ventricular hypertrophy. There is no significant aortic valvular stenosis. Doppler and Color Flow revealed no significant aortic regurgitation. Doppler and Color Flow revealed trace mitral valve regurgitation. Doppler and Color Flow revealed trace to mild tricuspid regurgitation. The aortic root is mildly enlarged. (4.26cm) The aortic root displays mild sclerocalcific changes of the aortic root and annulus. The Ascending Aorta (4.76cm) and Aortic Arch (4.1cm) is mildly dilated. DATE: 10/16/17 1803 STRESS TEST STRESS TEST Conclusion 1. No evidence of stress induced EKG changes. 2. Normal perfusion at stress. 3. Low risk study. EF > 70%. DATE: 02/07/17 1344 ASSESSMENT/PLAN ASSESSMENT/PLAN 1. Possible pyelonephritis with nephrolithiasis 2. Atypical Chest pain: Trop series nml. EKG SR with nonspecific ST-T wave changes, no acute changes. Noncardiac 3. Hypertensive urgency 4. DM2/HLP 5. Hypothyroidism 6. Noncompliance: with diet and skipping meds 7. Hepatic steatosis 8. Morbid obesity/KARENA: CPAP compliant 9. Asymptomatic SB; no pauses. 50-60s Recommendations 1. TTE, CTA and reeval aortic root and TAA 2. Verify meds resume home BP meds. DC clonidine PRN and change to hydralazine IV PRN. Will adjust per BP trend. 3. lipids, TSH, TSH A1C 4. dietitian consult 5. Discussed treatment complaince ERIN HENRIQUEZ MD 09/27/18 0959: CARDIAC CONSULT ASSESSMENT/PLAN ASSESSMENT/PLAN Late entry for 09/26/2018 Pt. seen and examined. Agree with above HUMAN RESOURCES BENEFITS ASSISTANT note. Continue medical therapy/titration. Supportive care. No evidence of [place]. Asc Aneur stable. JJ RAMÍREZ APRN Sep 26, 2018 09:48 ERIN HENRIQUEZ MD Sep 27, 2018 09:59
[2018-09-26] MEDS ORDERED: SEMA0.25 SQ (10:00)
[2018-09-26] MEDS ORDERED: INSU100I17 SQ (10:00)
[2018-09-26] MEDS ORDERED: LEVO125T5 PO (10:00)
[2018-09-26] MEDS ORDERED: INSU200I4 SQ (10:00)
[2018-09-26 10:38] LABS: CALCIUM 9.1 mg/dL (8.5-10.1); GFR 55.1; MAGNESIUM 1.7 mg/dL (1.8-2.4); POTASSIUM 3.8 mmol/L (3.5-5.1)
[2018-09-26 10:49] LABS: CHOLESTEROL/HDL RATIO 4.9
--- NOTE | 2018-09-26 11:05 | PDOC1 ---
History and Physical Date of Admission Date of Admission DATE: 09/26/18 TIME: 11:05 Identification/Chief Complaint Chief Complaint SEEN IN ER , presented with chest wall pain she states extends into her left upper abdomen. The patient states that she saw her primary care provider in July and was worked up with no findings for her pain. She is noncompliant on her medications. She states that she has not taken any of her blood pressure medicines today. She will intermittently stop using her insulin, HX NONCOMPLIANCE chest discomfort since June 2018 and finally it just became unbearable EXAM IN ER C/W ACUTE PYELONEPHRITIS TSH VERY HIGH, GLUCOSE UNCONTROLLED Past Medical History Cardiovascular: HTN, Hyperlipidemia, Other Pulmonary: Other CENTRAL NERVOUS SYSTEM: CVA GI: GERD Heme/Onc: Cancer Hepatobiliary: No pertinent hx Psych: Anxiety, Depression Musculoskeletal: Osteoarthritis Rheumatologic: No pertinent hx Infectious disease: No pertinent hx Renal/: No pertinent hx Endocrine: Diabetes, Hypothyroidism Past Surgical History Past Surgical History: Hysterectomy Family History Family History: Heart Disease, Hypertension Social History Smoke: No ALCOHOL: none Drugs: None Current Problem List Problem List Problems Medical Problems: (1) Accelerated hypertension Status: Acute (2) Chest pain Status: Acute (3) Hyperglycemia Status: Acute (4) Pyelonephritis Status: Acute Current Medications Current Medications Current Medications Metoprolol Tartrate (Lopressor Vial) 5 mg 1X ONCE IVP Last administered on at 23:32; Start 09/25/18 at 23:15; Stop 09/25/18 at 23:16; Status DC Fentanyl Citrate (Fentanyl 2ml Vial) 50 mcg 1X ONCE IV Last administered on at 00:01; Start 09/26/18 at 00:00; Stop 09/26/18 at 00:01; Status DC Hydralazine HCl (Apresoline Inj) 10 mg 1X ONCE IVP Last administered on at 00:35; Start 09/26/18 at 00:30; Stop 09/26/18 at 00:31; Status DC Insulin Human Regular (HumuLIN R VIAL) 6 unit 1X ONCE IV Last administered on 09/26/18at 02:20; Start 09/26/18 at 01:45; Stop 09/26/18 at 01:46; Status DC Ondansetron HCl (Zofran) 4 mg PRN Q8HRS PRN IV NAUSEA/VOMITING; Start 09/26/18 at 01:45; Stop 09/27/18 at 01:44 Fentanyl Citrate (Fentanyl 2ml Vial) 50 mcg PRN Q1HR PRN IV PAIN Last administered on 09/26/18at 05:41; Start 09/26/18 at 01:45; Stop 09/27/18 at 01:44 Acetaminophen (Tylenol) 650 mg PRN Q4HRS PRN PO FEVER; Start 09/26/18 at 01:45 ; Stop 09/27/18 at 01:44 Nitroglycerin (Nitrostat) 0.4 mg PRN Q5MIN PRN SL CHEST PAIN; Start 09/26/18 at 01:45; Stop 09/27/18 at 01:44 Insulin Human Lispro (HumaLOG) 0-7 UNITS TIDWMEALS SQ Last administered on 09/26at 08:42; Start 09/26/18 at 08:00 Dextrose (Dextrose 50%-Water Syringe) 12.5 gm PRN Q15MIN PRN IV SEE COMMENTS; Start 09/26/18 at 01:45 Ceftriaxone Sodium (Rocephin) 1 gm 1X ONCE IVP Last administered on 09/26/18at 02:20; Start 09/26/18 at 01:45; Stop 09/26/18 at 01:46; Status DC Clonidine HCl (Catapres) 0.1 mg PRN Q8HRS PRN PO HYPERTENSION, SEE COMMENTS Last administered on 09/26/18at 02:23; Start 09/26/18 at 01:45 Labetalol HCl (Normodyne Iv Push) 20 mg 1X ONCE IVP Last administered on at 03:59; Start 09/26/18 at 03:30; Stop 09/26/18 at 03:32; Status DC Diphenhydramine HCl (Benadryl) 25 mg PRN Q6HRS PRN PO ITCHING Last administered on 09/26/18at 04:31; Start 09/26/18 at 04:30 Levofloxacin/ Dextrose 150 ml @ 100 mls/hr Q24H IV ; Start 09/27/18 at 06:00; Stop 09/27/18 at 06:00; Status DC Levofloxacin/ Dextrose 100 ml @ 100 mls/hr Q24H IV ; Start 09/27/18 at 06:00 Active Scripts Active Reported Tresiba Flextouch U-200 (Insulin Degludec) 200 Unit/1 Ml Insuln.pen 64 Unit SQ QHS Ozempic (Semaglutide) 0.25 Mg/0.2 Ml Pen.injctr 0.5 Mg SQ QFR Novolog Flexpen (Insulin Aspart) 100 Unit/1 Ml Insuln.pen 24 Unit SQ TIDWMEALS Levothyroxine Sodium 125 Mcg Tablet 250 Mcg PO DAILYAC Trazodone Hcl 100 Mg Tablet 1 Tab PO QHS Trazodone Hcl 50 Mg Tablet 1 Tab PO QHS Protonix (Pantoprazole Sodium) 40 Mg Tablet.dr 1 Tab PO DAILY Crestor (Rosuvastatin Calcium) 20 Mg Tablet 20 Mg PO HS Aspirin 325 Mg Tablet 1 Tab PO DAILY Losartan-Hctz 100-12.5 Mg Tab (Losartan/Hydrochlorothiazide) 1 Each Tablet Metoprolol Succinate ( Xl ) (Metoprolol Succinate) 100 Mg Tab.er.24h 100 Mg Escitalopram Oxalate 10 Mg Tablet 20 Mg PO Allergies Allergies: Coded Allergies: morphine (Verified Allergy, Intermediate, tolerates Dilaudid & Percocet, ) ceftriaxone (Verified Allergy, Mild, rash, 09/26/18) lovastatin (Verified Adverse Reaction, Intermediate, CAUSES MUSCLE SPASMS , 09/11/16) ROS Review of System Review of Systems Review of Systems Constitutional: Denies fever or chills [] Eyes: Denies change in visual acuity, redness, or eye pain [] HENT: Denies nasal congestion or sore throat [] Respiratory: Denies cough or shortness of breath [] Cardiovascular: No additional information not addressed in HPI [] GI: See history of present illness : Denies dysuria or hematuria [] Musculoskeletal: Denies back pain or joint pain [] Integument: Denies rash or skin lesions [] Neurologic: Denies headache, focal weakness or sensory changes [] Endocrine: Denies polyuria or polydipsia [] 14 PT systems were reviewed and found to be within normal limits, except as documented . ALLERGY AND IMMUNOLOGY: No: Hives, Insect Bite Sensitivity, Itchy/Watery Eyes, Nasal Congestion, Post Nasal Drip, Seasonal Allergies, Other Cardiovascular: yes Chest Pain Physical Exam Physical Exam Physical Exam Physical Exam Constitutional: Well developed, well nourished, no acute distress, non-toxic appearance. VERY OBESE [] Cardiovascular:Heart rate regular rhythm, no murmur [] Lungs & Thorax: Bilateral breath sounds clear to auscultation [] Abdomen: Bowel sounds normal, soft, mild right upper quadrant and epigastric tenderness with no guarding, no masses, no pulsatile masses. [] Skin: Warm, dry, no erythema, no rash. [] Back: No tenderness, no CVA tenderness. [] Extremities: No tenderness, no cyanosis, no clubbing, ROM intact, no edema. [] Neurologic: Alert and oriented X 3, normal motor function, normal sensory function, no focal deficits noted. [] Psychologic: Affect normal, judgement normal, mood normal. [] General: Alert, Oriented X3, Cooperative, No acute distress HEENT: Atraumatic, PERRLA, EOMI, Mucous membr. moist/pink Lungs: Normal air movement Heart: S1S2, RRR, no thrills, no gallops Breasts: Not examined Abdomen: Soft Neuro: Normal speech, Sensation intact, Cranial nerves 3-12 NL Psych/Mental Status: Mental status NL, Mood NL Vitals Vitals Vital Signs Date Time Temp Pulse Resp B/P (MAP) Pulse Ox O2 Delivery O2 Flow Rate FiO2 09/26/18 08:00 Room Air 09/26/18 07:00 97.6 57 18 186/84 (118) 96 97.6 Labs Labs Laboratory Tests Test 09/25/18 21:41 09/25/18 23:01 09/26/18 02:47 09/26/18 05:40 White Blood Count 7.1 x10^3/uL (4.0-11.0) Red Blood Count 4.71 x10^6/uL (3.50-5.40) Hemoglobin 14.0 g/dL (12.0-15.5) Hematocrit 42.4 % (36.0-47.0) Mean Corpuscular Volume 90 fL (79-100) Mean Corpuscular Hemoglobin 30 pg (25-35) Mean Corpuscular Hemoglobin Concent 33 g/dL (31-37) Red Cell Distribution Width 14.0 % (11.5-14.5) Platelet Count 151 x10^3/uL (140-400) Neutrophils (%) (Auto) 70 % (31-73) Lymphocytes (%) (Auto) 18 % (24-48) Monocytes (%) (Auto) 8 % (0-9) Eosinophils (%) (Auto) 3 % (0-3) Basophils (%) (Auto) 1 % (0-3) Neutrophils # (Auto) 4.9 x10^3uL (1.8-7.7) Lymphocytes # (Auto) 1.3 x10^3/uL (1.0-4.8) Monocytes # (Auto) 0.6 x10^3/uL (0.0-1.1) Eosinophils # (Auto) 0.2 x10^3/uL (0.0-0.7) Basophils # (Auto) 0.0 x10^3/uL (0.0-0.2) Sodium Level 136 mmol/L (136-145) 139 mmol/L (136-145) Potassium Level 4.0 mmol/L (3.5-5.1) 3.8 mmol/L (3.5-5.1) Chloride Level 98 mmol/L (98-107) 99 mmol/L (98-107) Carbon Dioxide Level 33 mmol/L (21-32) 29 mmol/L (21-32) Anion Gap 5 (6-14) 11 (6-14) Blood Urea Nitrogen 13 mg/dL (7-20) 12 mg/dL (7-20) Creatinine 1.0 mg/dL (0.6-1.0) 1.0 mg/dL (0.6-1.0) Estimated GFR (Cockcroft-Gault) 55.1 55.1 BUN/Creatinine Ratio 13 (6-20) Glucose Level 337 mg/dL (70-99) 290 mg/dL (70-99) Calcium Level 9.0 mg/dL (8.5-10.1) 9.1 mg/dL (8.5-10.1) Total Bilirubin 0.3 mg/dL (0.2-1.0) Aspartate Amino Transf (AST/SGOT) 75 U/L (15-37) Alanine Aminotransferase (ALT/SGPT) 61 U/L (14-59) Alkaline Phosphatase 70 U/L (46-116) Creatine Kinase 279 U/L (26-192) Creatine Kinase MB (Mass) 3.0 ng/mL (0.0-3.6) Creatine Kinase MB Relative Index 1.1 % (0-4) Troponin I Quantitative < 0.017 ng/mL (0.000-0.055) < 0.017 ng/mL (0.000-0.055) 0.026 ng/mL (0.000-0.055) Total Protein 7.7 g/dL (6.4-8.2) Albumin 3.3 g/dL (3.4-5.0) Albumin/Globulin Ratio 0.8 (1.0-1.7) Urine Collection Type Void Urine Color Yellow Urine Clarity Cloudy Urine pH 7.5 Urine Specific [place] 1.020 Urine Protein >=300 mg/dL (NEG-TRACE) Urine Glucose (UA) >=1000 mg/dL (NEG) Urine Ketones (Stick) Negative mg/dL (NEG) Urine Blood Large (NEG) Urine Nitrite Negative (NEG) Urine Bilirubin Negative (NEG) Urine Urobilinogen Dipstick 1.0 mg/dL (0.2 mg/dL) Urine Leukocyte Esterase Moderate (NEG) Urine RBC Tntc /HPF (0-2) Urine WBC Tntc /HPF (0-4) Urine Squamous Epithelial Cells Mod /LPF Urine Bacteria Few /HPF (0-FEW) Magnesium Level 1.7 mg/dL (1.8-2.4) Triglycerides Level 261 mg/dL (0-150) Cholesterol Level 190 mg/dL (0-200) LDL Cholesterol, Calculated 99 mg/dL (0-100) VLDL Cholesterol, Calculated 52 mg/dL (0-40) Non-HDL Cholesterol Calculated 151 mg/dL (0-129) HDL Cholesterol 39 mg/dL (40-60) Cholesterol/HDL Ratio 4.9 Test 09/26/18 07:37 Glucose (Fingerstick) 294 mg/dL (70-99) Laboratory Tests Test 09/25/18 21:41 09/25/18 23:01 09/26/18 02:47 09/26/18 05:40 White Blood Count 7.1 x10^3/uL (4.0-11.0) Red Blood Count 4.71 x10^6/uL (3.50-5.40) Hemoglobin 14.0 g/dL (12.0-15.5) Hematocrit 42.4 % (36.0-47.0) Mean Corpuscular Volume 90 fL (79-100) Mean Corpuscular Hemoglobin 30 pg (25-35) Mean Corpuscular Hemoglobin Concent 33 g/dL (31-37) Red Cell Distribution Width 14.0 % (11.5-14.5) Platelet Count 151 x10^3/uL (140-400) Neutrophils (%) (Auto) 70 % (31-73) Lymphocytes (%) (Auto) 18 % (24-48) Monocytes (%) (Auto) 8 % (0-9) Eosinophils (%) (Auto) 3 % (0-3) Basophils (%) (Auto) 1 % (0-3) Neutrophils # (Auto) 4.9 x10^3uL (1.8-7.7) Lymphocytes # (Auto) 1.3 x10^3/uL (1.0-4.8) Monocytes # (Auto) 0.6 x10^3/uL (0.0-1.1) Eosinophils # (Auto) 0.2 x10^3/uL (0.0-0.7) Basophils # (Auto) 0.0 x10^3/uL (0.0-0.2) Sodium Level 136 mmol/L (136-145) 139 mmol/L (136-145) Potassium Level 4.0 mmol/L (3.5-5.1) 3.8 mmol/L (3.5-5.1) Chloride Level 98 mmol/L (98-107) 99 mmol/L (98-107) Carbon Dioxide Level 33 mmol/L (21-32) 29 mmol/L (21-32) Anion Gap 5 (6-14) 11 (6-14) Blood Urea Nitrogen 13 mg/dL (7-20) 12 mg/dL (7-20) Creatinine 1.0 mg/dL (0.6-1.0) 1.0 mg/dL (0.6-1.0) Estimated GFR (Cockcroft-Gault) 55.1 55.1 BUN/Creatinine Ratio 13 (6-20) Glucose Level 337 mg/dL (70-99) 290 mg/dL (70-99) Calcium Level 9.0 mg/dL (8.5-10.1) 9.1 mg/dL (8.5-10.1) Total Bilirubin 0.3 mg/dL (0.2-1.0) Aspartate Amino Transf (AST/SGOT) 75 U/L (15-37) Alanine Aminotransferase (ALT/SGPT) 61 U/L (14-59) Alkaline Phosphatase 70 U/L (46-116) Creatine Kinase 279 U/L (26-192) Creatine Kinase MB (Mass) 3.0 ng/mL (0.0-3.6) Creatine Kinase MB Relative Index 1.1 % (0-4) Troponin I Quantitative < 0.017 ng/mL (0.000-0.055) < 0.017 ng/mL (0.000-0.055) 0.026 ng/mL (0.000-0.055) Total Protein 7.7 g/dL (6.4-8.2) Albumin 3.3 g/dL (3.4-5.0) Albumin/Globulin Ratio 0.8 (1.0-1.7) Urine Collection Type Void Urine Color Yellow Urine Clarity Cloudy Urine pH 7.5 Urine Specific [place] 1.020 Urine Protein >=300 mg/dL (NEG-TRACE) Urine Glucose (UA) >=1000 mg/dL (NEG) Urine Ketones (Stick) Negative mg/dL (NEG) Urine Blood Large (NEG) Urine Nitrite Negative (NEG) Urine Bilirubin Negative (NEG) Urine Urobilinogen Dipstick 1.0 mg/dL (0.2 mg/dL) Urine Leukocyte Esterase Moderate (NEG) Urine RBC Tntc /HPF (0-2) Urine WBC Tntc /HPF (0-4) Urine Squamous Epithelial Cells Mod /LPF Urine Bacteria Few /HPF (0-FEW) Magnesium Level 1.7 mg/dL (1.8-2.4) Triglycerides Level 261 mg/dL (0-150) Cholesterol Level 190 mg/dL (0-200) LDL Cholesterol, Calculated 99 mg/dL (0-100) VLDL Cholesterol, Calculated 52 mg/dL (0-40) Non-HDL Cholesterol Calculated 151 mg/dL (0-129) HDL Cholesterol 39 mg/dL (40-60) Cholesterol/HDL Ratio 4.9 Test 09/26/18 07:37 Glucose (Fingerstick) 294 mg/dL (70-99) Images Images CTA of the chest, abdomen and pelvis with contrast, 09/26/2018: HISTORY: Follow-up thoracic aortic aneurysm Multidetector CT imaging was performed following an IV bolus injection of iodinated contrast material. Multiplanar reconstructions were produced including 3-D volume rendered reconstructions of the major arteries. There is dilatation of the ascending aorta. It measures 4.7 cm in greatest width on the coronal images. There has been no significant change since 02/06/2017. Pulsation type artifacts are seen near the aortic root. There is no evidence of aortic dissection. The origins of the cervicocephalic arteries from the aortic arch are widely patent. At the mid aortic arch level the aorta measures approximately 3.5 cm. It measures approximately 2.6 cm in width at the descending thoracic aortic level. There are mild scattered atherosclerotic plaques in the thoracic aorta. There is more extensive atherosclerotic plaquing of the abdominal aorta without evidence of aneurysm or high-grade stenosis. The celiac and superior mesenteric artery origins are widely patent. There is mild calcific plaquing at the origins of both renal arteries without evidence of high-grade stenosis. A patent inferior mesenteric artery is evident. There is mild calcific plaquing in the common iliac, external iliac and common femoral arteries bilaterally without evidence of high-grade stenosis. Incidental CT findings include the presence of several moderate sized calculi in the right renal collecting system and a staghorn-type configuration. The largest of these measures 3.2 cm in width. There is no associated hydronephrosis. There is streaky increased density in the parapelvic fat on the right suggesting chronic inflammation or scarring. There are smaller nonobstructing intrarenal calculi on the left. There is bilateral renal cortical scarring, more so on the right. Mild left adrenal nodularity is stable. Moderate multilevel degenerative changes are present in the spine. IMPRESSION: 1. Stable aneurysmal dilatation of the ascending aorta. 2. Bilateral intrarenal calculi, worse on the right. VTE Prophylaxis Ordered VTE Prophylaxis Devices: No VTE Pharmacological Prophylaxi: Yes Assessment/Plan Assessment/Plan IMPRESSION 1. CHEST PAIN 2. SEPSIS SEC TO ACUTE PYELONEPHRITIS several moderate sized calculi in the right renal collecting system and a staghorn-type configuration. The largest of these measures 3.2 cm in width. There is no associated hydronephrosis. There is streaky increased density in the parapelvic fat on the right suggesting chronic inflammation or scarring. There are smaller nonobstructing intrarenal calculi on the left. There is bilateral renal cortical scarring, more so on the right. 3. MORBID OBESITY, EXTREME 4. Stable aneurysmal dilatation of the ascending aorta. 5. Bilateral intrarenal calculi, worse on the right. 6. UNTREATED HYPOTHYROID STATE 7. Metabolic syndrome 8. UNCONTROLLED DIABETES PLAN BLOOD AND URINE CULTURES EMPERIC IV ANTIBIOTICS CARDIOLOGY CONSULT ECHO UROLOGY CONSULT RE STAGHORN RENAL CALCULUS synthroid 100mcg po daily weight loss needed Lantus 10units sq q hs SS INSULIN DVT PROPHYLAXIS 78 MIN PT EXAM, CHART REVIEW, > 50% TIME SPENT WITH PT EXAM, CHART REVIEW, PT CARE COORDINATION NIKITA DU MD Sep 26, 2018 11:05
[2018-09-26] MEDS ORDERED: METOPROLOL SUCC 24HR ER 100 MG TAB.ER.24H. PO SCH (12:00)
[2018-09-26] MEDS ORDERED: LEVOTHYROXINE 125 MCG TABLET PO SCH (12:00)
[2018-09-26] MEDS: ASPIRIN 325 MG TABLET PO SCH (12:05)
[2018-09-26] MEDS: PANTOPRAZOLE 40 MG TABLET.DR. PO SCH (12:06)
[2018-09-26] MEDS: CITALOPRAM 10 MG TABLET. PO SCH (12:06)
[2018-09-26] MEDS: LOSARTAN POTASSIUM 50 MG TABLET. PO SCH (12:06)
[2018-09-26] MEDS: hydroCHLOROthiazide 12.5 MG CAPSULE PO SCH (12:07)
--- NOTE | 2018-09-26 12:22 | NUR ---
SS following for discharge planning. SS reviewed pt chart. Pt is from home with spouse and is currently on room air. No discharge needs noted at this time. SS will continue to follow for discharge planning.
--- NOTE | 2018-09-26 12:28 | CARD ---
MR#: [id number] Date of Study: 09/26/2018 Ordering Physician: JJ RAMÍREZ, Referring Physician: NIKITA DU, Tech: Felipa Fritz APPROVED REPORT EXAM: Two-dimensional and M-mode echocardiogram with Doppler and color Doppler. Other Information Quality : AverageHR: 61bpm Technically limited study due to body habitus INDICATION Chest Pain RISK FACTORS Hypertension Hyperlipidemia Diabetes 2D DIMENSIONS Left Atrium(2D)3.9 (1.6-4.0cm)IVSd1.5 (0.7-1.1cm) Aortic Root(2D)3.6 (2.0-3.7cm)LVDd4.6 (3.9-5.9cm) LVOT Diameter2.2 (1.8-2.4cm)PWd1.3 (0.7-1.1cm) LVDs4.0 (2.5-4.0cm)FS (%) 12.1 % SV25.5 mlLVEF(%)26.2 (>50%) Aortic Valve AoV Peak Min.164.6cm/sAoV VTI35.8cm AO Peak GR.10.8mmHgLVOT Peak Min.123.4cm/s LVOT VTI 27.50cmAO Mean GR.6mmHg JULISSA (VMAX)1.85wo2RME (VTI)2.83cm2 AI P 1/2 [id number] Mitral Valve MV E Mgwgubpa04.7cm/sMV DECEL [id number] MV A Zsgbytjf76.4cm/sMV SZE44er E/A Ratio0.9MVA (PHT)2.47cm2 TDI E/Lateral E'11.8E/Medial E'17.8 Pulmonary Valve PV Peak Ylqlpfhm558.1cm/sPV Peak Grad.8mmHg Tricuspid Valve RAP [id number] Pulmonary Vein S1 Oguzeovm40.5cm/sD2 Vnkhvjud00.0cm/s PVa [id number] LEFT VENTRICLE The left ventricle is normal size. There is moderate concentric left ventricular hypertrophy. The lef t ventricular systolic function is normal and the ejection fraction is within normal range. The Eject ion Fraction is 50-55%. The basal to mid inferior wall appear mildly hypokinetic. Transmitral Doppler flow pattern is Grade II-pseudonormal filling dynamics. RIGHT VENTRICLE The right ventricle is borderline dilated. There is normal right ventricular wall thickness. The righ t ventricular systolic function is normal. ATRIA The left atrium size is normal. The right atrium size is normal. The interatrial septum is intact wit h no evidence for an atrial septal defect or patent foramen ovale as noted on 2-D or Doppler imaging. AORTIC VALVE The aortic valve is thickened but opens well. Doppler and Color Flow revealed trace to mild aortic re gurgitation. There is no significant aortic valvular stenosis. MITRAL VALVE The mitral valve is normal in structure and function. There is no evidence of mitral valve prolapse. There is no mitral valve stenosis. Doppler and Color-flow revealed trace mitral regurgitation. TRICUSPID VALVE The tricuspid valve is normal in structure and function. Doppler and Color Flow revealed no tricuspid valve regurgitation noted. There is no tricuspid valve stenosis. PULMONIC VALVE The pulmonic valve is not well visualized. Doppler and Color Flow revealed no pulmonic valvular regur gitation. GREAT VESSELS The aortic root is mildly enlarged. There is an aneurysm of the ascending aorta measuring approximate ly 4.5 cm. A dissection flap cannot be excluded. The IVC is normal in size and collapses >50% with in spiration. PERICARDIAL EFFUSION There is no evidence of significant pericardial effusion. Critical Notification Critical Value: No <Conclusion> The left ventricular systolic function is normal and the ejection fraction is within normal range. Th e Ejection Fraction is 50-55%. The basal to mid inferior wall appear mildly hypokinetic. Doppler and Color Flow revealed trace to mild aortic regurgitation. There is an aneurysm of the ascending aorta measuring approximately 4.5 cm. A dissection flap cannot be excluded. Signed by : Ras Loera, Electronically Approved : 09/26/2018 12:27:18
[2018-09-26] MEDS ORDERED: IOHEXOL 350 MG/ML 100 ML VIAL. IV ONE (13:15)
[2018-09-26] MEDS ORDERED: CONTRAST GIVEN. MC PRN (13:15)
--- NOTE | 2018-09-26 14:48 | RAD ---
CTA of the chest, abdomen and pelvis with contrast, 09/26/2018: HISTORY: Follow-up thoracic aortic aneurysm Multidetector CT imaging was performed following an IV bolus injection of iodinated contrast material. Multiplanar reconstructions were produced including 3-D volume rendered reconstructions of the major arteries. There is dilatation of the ascending aorta. It measures 4.7 cm in greatest width on the coronal images. There has been no significant change since 02/06/2017. Pulsation type artifacts are seen near the aortic root. There is no evidence of aortic dissection. The origins of the cervicocephalic arteries from the aortic arch are widely patent. At the mid aortic arch level the aorta measures approximately 3.5 cm. It measures approximately 2.6 cm in width at the descending thoracic aortic level. There are mild scattered atherosclerotic plaques in the thoracic aorta. There is more extensive atherosclerotic plaquing of the abdominal aorta without evidence of aneurysm or high-grade stenosis. The celiac and superior mesenteric artery origins are widely patent. There is mild calcific plaquing at the origins of both renal arteries without evidence of high-grade stenosis. A patent inferior mesenteric artery is evident. There is mild calcific plaquing in the common iliac, external iliac and common femoral arteries bilaterally without evidence of high-grade stenosis. Incidental CT findings include the presence of several moderate sized calculi in the right renal collecting system and a staghorn-type configuration. The largest of these measures 3.2 cm in width. There is no associated hydronephrosis. There is streaky increased density in the parapelvic fat on the right suggesting chronic inflammation or scarring. There are smaller nonobstructing intrarenal calculi on the left. There is bilateral renal cortical scarring, more so on the right. Mild left adrenal nodularity is stable. Moderate multilevel degenerative changes are present in the spine. IMPRESSION: 1. Stable aneurysmal dilatation of the ascending aorta. 2. Bilateral intrarenal calculi, worse on the right. PQRS Compliance Statement: One or more of the following individualized dose reduction techniques were utilized for this examination: 1. Automated exposure control 2. Adjustment of the mA and/or kV according to patient size 3. Use of iterative reconstruction technique Electronically signed by: Dwain Patel MD (09/26/2018 2:45 PM) [facility]
[2018-09-26] MEDS ORDERED: MAGNESIUM OXIDE 400 MG TABLET PO ONE (15:00)
[2018-09-26] MEDS ORDERED: hydrALAZINE 20 MG/ML VIAL. IVP PRN (16:45)
[2018-09-26] MEDS ORDERED: ENOXAPARIN 40 MG/0.4 ML SYRINGE. SQ SCH (17:00)
[2018-09-26] MEDS ORDERED: LEVOTHYROXINE 100 MCG TABLET PO ONE (17:30)
[2018-09-26] MEDS: CARVEDILOL 12.5 MG TABLET. PO SCH (19:44)
[2018-09-26] MEDS: traZODone 50 MG TABLET. PO SCH (20:34)
[2018-09-26] MEDS: LACTOBACILLUS RHAMNOSUS GG 1 CAPSULE. PO SCH (20:35)
[2018-09-26] MEDS: ATORVASTATIN CALCIUM 40 MG TABLET. PO SCH (20:35)
[2018-09-26] MEDS: INSULIN GLARGINE 300 UNITS/3 ML INSULN.PEN. SQ SCH (20:47)
[2018-09-26] MEDS ORDERED: INSULIN GLARGINE 300 UNITS/3 ML INSULN.PEN. SQ SCH (21:00)
[2018-09-26] MEDS: traZODone 100 MG TABLET. PO SCH (21:00)
[2018-09-27] MEDS: fentaNYL PF VIAL 100 MCG/2 ML VIAL IV PRN ×2 (00:02→18:29)
[2018-09-27 02:11] LABS: HEMOGLOBIN A1C 9.1 % (4.8-5.6)
[2018-09-27 02:44] VITALS: BP 159/74
[2018-09-27 04:01] LABS: BASO % 1 % (0-3); EOS # 0.2 x10^3/uL (0.0-0.7); EOS % 4 % (0-3); HEMATOCRIT 39.2 % (36.0-47.0); HEMOGLOBIN 12.7 g/dL (12.0-15.5); LYMPH # 1.5 x10^3/uL (1.0-4.8); LYMPH % 25 % (24-48); MEAN CORPUSCULAR HEMOGLOBIN 29 pg (25-35); MEAN CORPUSCULAR HGB CONC 33 g/dL (31-37); MEAN CORPUSCULAR VOLUME 90 fL (79-100); MONO # 0.5 x10^3/uL (0.0-1.1); MONO % 8 % (0-9); NEUT # 3.8 x10^3uL (1.8-7.7); NEUT % 63 % (31-73); PLATELET COUNT 133 x10^3/uL (140-400); RED BLOOD COUNT 4.37 x10^6/uL (3.50-5.40); RED CELL DISTRIBUTION WIDTH 13.8 % (11.5-14.5); WHITE BLOOD COUNT 6.1 x10^3/uL (4.0-11.0)
[2018-09-27 04:30] LABS: ALBUMIN 3.1 g/dL (3.4-5.0); ALBUMIN/GLOBULIN RATIO 0.8 (1.0-1.7); CALCIUM 9.2 mg/dL (8.5-10.1); CREATININE 0.9 mg/dL (0.6-1.0); GFR 62.3; POTASSIUM 3.2 mmol/L (3.5-5.1); TOTAL BILIRUBIN 0.3 mg/dL (0.2-1.0)
[2018-09-27 04:40] LABS: CHOLESTEROL/HDL RATIO 5.2
[2018-09-27] MEDS: LEVOTHYROXINE 100 MCG TABLET PO SCH (05:57)
[2018-09-27] MEDS: PANTOPRAZOLE 40 MG TABLET.DR. PO SCH (05:58)
[2018-09-27 07:00] VITALS: BP 143/65
[2018-09-27] MEDS: CARVEDILOL 12.5 MG TABLET. PO SCH ×2 (08:41→17:43)
[2018-09-27] MEDS: ASPIRIN 325 MG TABLET PO SCH (08:41)
[2018-09-27] MEDS: CITALOPRAM 10 MG TABLET. PO SCH (08:41)
[2018-09-27] MEDS: LOSARTAN POTASSIUM 50 MG TABLET. PO SCH (08:41)
[2018-09-27] MEDS: hydroCHLOROthiazide 12.5 MG CAPSULE PO SCH (08:42)
[2018-09-27] MEDS: LACTOBACILLUS RHAMNOSUS GG 1 CAPSULE. PO SCH ×2 (08:42→20:31)
[2018-09-27] MEDS: INSULIN LISPRO 300 UNITS/3 ML INSULN.PEN. SQ SCH ×6 (08:52→17:46)
--- NOTE | 2018-09-27 09:20 | PDOC ---
PROGRESS NOTES History of Present Illness History of Present Illness Assessment/Plan Assessment/Plan IMPRESSION 1. CHEST PAIN 2. SEPSIS SEC TO ACUTE PYELONEPHRITIS several moderate sized calculi in the right renal collecting system and a staghorn-type configuration. The largest of these measures 3.2 cm in width. There is no associated hydronephrosis. There is streaky increased density in the parapelvic fat on the right suggesting chronic inflammation or scarring. There are smaller nonobstructing intrarenal calculi on the left. There is bilateral renal cortical scarring, more so on the right. 3. MORBID OBESITY, EXTREME 4. Stable aneurysmal dilatation of the ascending aorta. 5. Bilateral intrarenal calculi, worse on the right. 6. UNTREATED HYPOTHYROID STATE 7. Metabolic syndrome 8. UNCONTROLLED DIABETE 9. several large stones that will require either staged ureteroscopy or percutaneous approach. PLAN BLOOD AND URINE CULTURES EMPERIC IV ANTIBIOTICS CARDIOLOGY CONSULT REVIEWED ECHO UROLOGY FOLLOWING RE STAGHORN RENAL CALCULUS synthroid 100mcg po daily weight loss needed Lantus 10units sq q hs SS INSULIN DVT PROPHYLAXIS 41 MIN PT EXAM, CHART REVIEW, > 50% TIME SPENT WITH PT EXAM, CHART REVIEW, PT CARE COORDINATION Vitals Vitals Vital Signs Date Time Temp Pulse Resp B/P (MAP) Pulse Ox O2 Delivery O2 Flow Rate FiO2 09/27/18 08:41 51 143/65 09/27/18 07:00 97.3 20 94 Room Air 97.3 Physical Exam General: Alert, Oriented X3, Cooperative, No acute distress Heart: Regular rate (SR), Normal S1, Normal S2, Other (2/6 systolic murmur to LLS border) Lungs: Clear Abdomen: Normal bowel sounds, Soft Extremities: No cyanosis, Other (trace to 1+ pitting leg edema) Skin: No breakdown, No significant lesion Labs LABS Laboratory Tests Test 09/26/18 12:14 09/26/18 17:10 09/26/18 20:30 09/27/18 02:34 Glucose (Fingerstick) 216 mg/dL (70-99) 169 mg/dL (70-99) 129 mg/dL (70-99) 136 mg/dL (70-99) Test 09/27/18 03:20 09/27/18 08:02 White Blood Count 6.1 x10^3/uL (4.0-11.0) Red Blood Count 4.37 x10^6/uL (3.50-5.40) Hemoglobin 12.7 g/dL (12.0-15.5) Hematocrit 39.2 % (36.0-47.0) Mean Corpuscular Volume 90 fL (79-100) Mean Corpuscular Hemoglobin 29 pg (25-35) Mean Corpuscular Hemoglobin Concent 33 g/dL (31-37) Red Cell Distribution Width 13.8 % (11.5-14.5) Platelet Count 133 x10^3/uL (140-400) Neutrophils (%) (Auto) 63 % (31-73) Lymphocytes (%) (Auto) 25 % (24-48) Monocytes (%) (Auto) 8 % (0-9) Eosinophils (%) (Auto) 4 % (0-3) Basophils (%) (Auto) 1 % (0-3) Neutrophils # (Auto) 3.8 x10^3uL (1.8-7.7) Lymphocytes # (Auto) 1.5 x10^3/uL (1.0-4.8) Monocytes # (Auto) 0.5 x10^3/uL (0.0-1.1) Eosinophils # (Auto) 0.2 x10^3/uL (0.0-0.7) Basophils # (Auto) 0.0 x10^3/uL (0.0-0.2) Sodium Level 140 mmol/L (136-145) Potassium Level 3.2 mmol/L (3.5-5.1) Chloride Level 101 mmol/L (98-107) Carbon Dioxide Level 31 mmol/L (21-32) Anion Gap 8 (6-14) Blood Urea Nitrogen 13 mg/dL (7-20) Creatinine 0.9 mg/dL (0.6-1.0) Estimated GFR (Cockcroft-Gault) 62.3 BUN/Creatinine Ratio 14 (6-20) Glucose Level 150 mg/dL (70-99) Calcium Level 9.2 mg/dL (8.5-10.1) Total Bilirubin 0.3 mg/dL (0.2-1.0) Aspartate Amino Transf (AST/SGOT) 56 U/L (15-37) Alanine Aminotransferase (ALT/SGPT) 47 U/L (14-59) Alkaline Phosphatase 57 U/L (46-116) Total Protein 7.0 g/dL (6.4-8.2) Albumin 3.1 g/dL (3.4-5.0) Albumin/Globulin Ratio 0.8 (1.0-1.7) Triglycerides Level 295 mg/dL (0-150) Cholesterol Level 182 mg/dL (0-200) LDL Cholesterol, Calculated 88 mg/dL (0-100) VLDL Cholesterol, Calculated 59 mg/dL (0-40) Non-HDL Cholesterol Calculated 147 mg/dL (0-129) HDL Cholesterol 35 mg/dL (40-60) Cholesterol/HDL Ratio 5.2 Glucose (Fingerstick) 169 mg/dL (70-99) Assessment and Plan Assessmemt and Plan Problems Medical Problems: (1) Accelerated hypertension Status: Acute (2) Chest pain Status: Acute (3) Hyperglycemia Status: Acute (4) Pyelonephritis Status: Acute Comment Review of Relevant I have reviewed the following items jeffrey (where applicable) has been applied. Labs Laboratory Tests Test 09/25/18 21:41 09/25/18 23:01 09/26/18 02:47 09/26/18 05:40 White Blood Count 7.1 x10^3/uL (4.0-11.0) Red Blood Count 4.71 x10^6/uL (3.50-5.40) Hemoglobin 14.0 g/dL (12.0-15.5) Hematocrit 42.4 % (36.0-47.0) Mean Corpuscular Volume 90 fL (79-100) Mean Corpuscular Hemoglobin 30 pg (25-35) Mean Corpuscular Hemoglobin Concent 33 g/dL (31-37) Red Cell Distribution Width 14.0 % (11.5-14.5) Platelet Count 151 x10^3/uL (140-400) Neutrophils (%) (Auto) 70 % (31-73) Lymphocytes (%) (Auto) 18 % (24-48) Monocytes (%) (Auto) 8 % (0-9) Eosinophils (%) (Auto) 3 % (0-3) Basophils (%) (Auto) 1 % (0-3) Neutrophils # (Auto) 4.9 x10^3uL (1.8-7.7) Lymphocytes # (Auto) 1.3 x10^3/uL (1.0-4.8) Monocytes # (Auto) 0.6 x10^3/uL (0.0-1.1) Eosinophils # (Auto) 0.2 x10^3/uL (0.0-0.7) Basophils # (Auto) 0.0 x10^3/uL (0.0-0.2) Sodium Level 136 mmol/L (136-145) 139 mmol/L (136-145) Potassium Level 4.0 mmol/L (3.5-5.1) 3.8 mmol/L (3.5-5.1) Chloride Level 98 mmol/L (98-107) 99 mmol/L (98-107) Carbon Dioxide Level 33 mmol/L (21-32) 29 mmol/L (21-32) Anion Gap 5 (6-14) 11 (6-14) Blood Urea Nitrogen 13 mg/dL (7-20) 12 mg/dL (7-20) Creatinine 1.0 mg/dL (0.6-1.0) 1.0 mg/dL (0.6-1.0) Estimated GFR (Cockcroft-Gault) 55.1 55.1 BUN/Creatinine Ratio 13 (6-20) Glucose Level 337 mg/dL (70-99) 290 mg/dL (70-99) Calcium Level 9.0 mg/dL (8.5-10.1) 9.1 mg/dL (8.5-10.1) Total Bilirubin 0.3 mg/dL (0.2-1.0) Aspartate Amino Transf (AST/SGOT) 75 U/L (15-37) Alanine Aminotransferase (ALT/SGPT) 61 U/L (14-59) Alkaline Phosphatase 70 U/L (46-116) Creatine Kinase 279 U/L (26-192) Creatine Kinase MB (Mass) 3.0 ng/mL (0.0-3.6) Creatine Kinase MB Relative Index 1.1 % (0-4) Troponin I Quantitative < 0.017 ng/mL (0.000-0.055) < 0.017 ng/mL (0.000-0.055) 0.026 ng/mL (0.000-0.055) Total Protein 7.7 g/dL (6.4-8.2) Albumin 3.3 g/dL (3.4-5.0) Albumin/Globulin Ratio 0.8 (1.0-1.7) Urine Collection Type Void Urine Color Yellow Urine Clarity Cloudy Urine pH 7.5 Urine Specific [place] 1.020 Urine Protein >=300 mg/dL (NEG-TRACE) Urine Glucose (UA) >=1000 mg/dL (NEG) Urine Ketones (Stick) Negative mg/dL (NEG) Urine Blood Large (NEG) Urine Nitrite Negative (NEG) Urine Bilirubin Negative (NEG) Urine Urobilinogen Dipstick 1.0 mg/dL (0.2 mg/dL) Urine Leukocyte Esterase Moderate (NEG) Urine RBC Tntc /HPF (0-2) Urine WBC Tntc /HPF (0-4) Urine Squamous Epithelial Cells Mod /LPF Urine Bacteria Few /HPF (0-FEW) Hemoglobin A1c 9.1 % (4.8-5.6) Magnesium Level 1.7 mg/dL (1.8-2.4) Triglycerides Level 261 mg/dL (0-150) Cholesterol Level 190 mg/dL (0-200) LDL Cholesterol, Calculated 99 mg/dL (0-100) VLDL Cholesterol, Calculated 52 mg/dL (0-40) Non-HDL Cholesterol Calculated 151 mg/dL (0-129) HDL Cholesterol 39 mg/dL (40-60) Cholesterol/HDL Ratio 4.9 Thyroid Stimulating Hormone (TSH) 42.273 uIU/mL (0.358-3.74) Test 09/26/18 07:37 09/26/18 12:14 09/26/18 17:10 09/26/18 20:30 Glucose (Fingerstick) 294 mg/dL (70-99) 216 mg/dL (70-99) 169 mg/dL (70-99) 129 mg/dL (70-99) Test 09/27/18 02:34 09/27/18 03:20 09/27/18 08:02 Glucose (Fingerstick) 136 mg/dL (70-99) 169 mg/dL (70-99) White Blood Count 6.1 x10^3/uL (4.0-11.0) Red Blood Count 4.37 x10^6/uL (3.50-5.40) Hemoglobin 12.7 g/dL (12.0-15.5) Hematocrit 39.2 % (36.0-47.0) Mean Corpuscular Volume 90 fL (79-100) Mean Corpuscular Hemoglobin 29 pg (25-35) Mean Corpuscular Hemoglobin Concent 33 g/dL (31-37) Red Cell Distribution Width 13.8 % (11.5-14.5) Platelet Count 133 x10^3/uL (140-400) Neutrophils (%) (Auto) 63 % (31-73) Lymphocytes (%) (Auto) 25 % (24-48) Monocytes (%) (Auto) 8 % (0-9) Eosinophils (%) (Auto) 4 % (0-3) Basophils (%) (Auto) 1 % (0-3) Neutrophils # (Auto) 3.8 x10^3uL (1.8-7.7) Lymphocytes # (Auto) 1.5 x10^3/uL (1.0-4.8) Monocytes # (Auto) 0.5 x10^3/uL (0.0-1.1) Eosinophils # (Auto) 0.2 x10^3/uL (0.0-0.7) Basophils # (Auto) 0.0 x10^3/uL (0.0-0.2) Sodium Level 140 mmol/L (136-145) Potassium Level 3.2 mmol/L (3.5-5.1) Chloride Level 101 mmol/L (98-107) Carbon Dioxide Level 31 mmol/L (21-32) Anion Gap 8 (6-14) Blood Urea Nitrogen 13 mg/dL (7-20) Creatinine 0.9 mg/dL (0.6-1.0) Estimated GFR (Cockcroft-Gault) 62.3 BUN/Creatinine Ratio 14 (6-20) Glucose Level 150 mg/dL (70-99) Calcium Level 9.2 mg/dL (8.5-10.1) Total Bilirubin 0.3 mg/dL (0.2-1.0) Aspartate Amino Transf (AST/SGOT) 56 U/L (15-37) Alanine Aminotransferase (ALT/SGPT) 47 U/L (14-59) Alkaline Phosphatase 57 U/L (46-116) Total Protein 7.0 g/dL (6.4-8.2) Albumin 3.1 g/dL (3.4-5.0) Albumin/Globulin Ratio 0.8 (1.0-1.7) Triglycerides Level 295 mg/dL (0-150) Cholesterol Level 182 mg/dL (0-200) LDL Cholesterol, Calculated 88 mg/dL (0-100) VLDL Cholesterol, Calculated 59 mg/dL (0-40) Non-HDL Cholesterol Calculated 147 mg/dL (0-129) HDL Cholesterol 35 mg/dL (40-60) Cholesterol/HDL Ratio 5.2 Laboratory Tests Test 09/26/18 12:14 09/26/18 17:10 09/26/18 20:30 09/27/18 02:34 Glucose (Fingerstick) 216 mg/dL (70-99) 169 mg/dL (70-99) 129 mg/dL (70-99) 136 mg/dL (70-99) Test 09/27/18 03:20 09/27/18 08:02 White Blood Count 6.1 x10^3/uL (4.0-11.0) Red Blood Count 4.37 x10^6/uL (3.50-5.40) Hemoglobin 12.7 g/dL (12.0-15.5) Hematocrit 39.2 % (36.0-47.0) Mean Corpuscular Volume 90 fL (79-100) Mean Corpuscular Hemoglobin 29 pg (25-35) Mean Corpuscular Hemoglobin Concent 33 g/dL (31-37) Red Cell Distribution Width 13.8 % (11.5-14.5) Platelet Count 133 x10^3/uL (140-400) Neutrophils (%) (Auto) 63 % (31-73) Lymphocytes (%) (Auto) 25 % (24-48) Monocytes (%) (Auto) 8 % (0-9) Eosinophils (%) (Auto) 4 % (0-3) Basophils (%) (Auto) 1 % (0-3) Neutrophils # (Auto) 3.8 x10^3uL (1.8-7.7) Lymphocytes # (Auto) 1.5 x10^3/uL (1.0-4.8) Monocytes # (Auto) 0.5 x10^3/uL (0.0-1.1) Eosinophils # (Auto) 0.2 x10^3/uL (0.0-0.7) Basophils # (Auto) 0.0 x10^3/uL (0.0-0.2) Sodium Level 140 mmol/L (136-145) Potassium Level 3.2 mmol/L (3.5-5.1) Chloride Level 101 mmol/L (98-107) Carbon Dioxide Level 31 mmol/L (21-32) Anion Gap 8 (6-14) Blood Urea Nitrogen 13 mg/dL (7-20) Creatinine 0.9 mg/dL (0.6-1.0) Estimated GFR (Cockcroft-Gault) 62.3 BUN/Creatinine Ratio 14 (6-20) Glucose Level 150 mg/dL (70-99) Calcium Level 9.2 mg/dL (8.5-10.1) Total Bilirubin 0.3 mg/dL (0.2-1.0) Aspartate Amino Transf (AST/SGOT) 56 U/L (15-37) Alanine Aminotransferase (ALT/SGPT) 47 U/L (14-59) Alkaline Phosphatase 57 U/L (46-116) Total Protein 7.0 g/dL (6.4-8.2) Albumin 3.1 g/dL (3.4-5.0) Albumin/Globulin Ratio 0.8 (1.0-1.7) Triglycerides Level 295 mg/dL (0-150) Cholesterol Level 182 mg/dL (0-200) LDL Cholesterol, Calculated 88 mg/dL (0-100) VLDL Cholesterol, Calculated 59 mg/dL (0-40) Non-HDL Cholesterol Calculated 147 mg/dL (0-129) HDL Cholesterol 35 mg/dL (40-60) Cholesterol/HDL Ratio 5.2 Glucose (Fingerstick) 169 mg/dL (70-99) Medications Current Medications Metoprolol Tartrate (Lopressor Vial) 5 mg 1X ONCE IVP Last administered on at 23:32; Start 09/25/18 at 23:15; Stop 09/25/18 at 23:16; Status DC Fentanyl Citrate (Fentanyl 2ml Vial) 50 mcg 1X ONCE IV Last administered on at 00:01; Start 09/26/18 at 00:00; Stop 09/26/18 at 00:01; Status DC Hydralazine HCl (Apresoline Inj) 10 mg 1X ONCE IVP Last administered on at 00:35; Start 09/26/18 at 00:30; Stop 09/26/18 at 00:31; Status DC Insulin Human Regular (HumuLIN R VIAL) 6 unit 1X ONCE IV Last administered on 09/26/18 02:20; Start 09/26/18 at 01:45; Stop 09/26/18 at 01:46; Status DC Ondansetron HCl (Zofran) 4 mg PRN Q8HRS PRN IV NAUSEA/VOMITING; Start 09/26/18 at 01:45; Stop 09/27/18 at 01:44; Status DC Fentanyl Citrate (Fentanyl 2ml Vial) 50 mcg PRN Q1HR PRN IV PAIN Last administered on 09/27/18 00:02; Start 09/26/18 at 01:45; Stop 09/27/18 at 01:44 ; Status DC Acetaminophen (Tylenol) 650 mg PRN Q4HRS PRN PO FEVER; Start 09/26/18 at 01:45 ; Stop 09/27/18 at 01:44; Status DC Nitroglycerin (Nitrostat) 0.4 mg PRN Q5MIN PRN SL CHEST PAIN; Start 09/26/18 at 01:45; Stop 09/27/18 at 01:44; Status DC Insulin Human Lispro (HumaLOG) 0-7 UNITS TIDWMEALS SQ Last administered on 09/26at 12:18; Start 09/26/18 at 08:00; Stop 09/26/18 at 17:12; Status DC Dextrose (Dextrose 50%-Water Syringe) 12.5 gm PRN Q15MIN PRN IV SEE COMMENTS; Start 09/26/18 at 01:45 Ceftriaxone Sodium (Rocephin) 1 gm 1X ONCE IVP Last administered on 09/26/18at 02:20; Start 09/26/18 at 01:45; Stop 09/26/18 at 01:46; Status DC Clonidine HCl (Catapres) 0.1 mg PRN Q8HRS PRN PO HYPERTENSION, SEE COMMENTS Last administered on 09/26/18at 15:23; Start 09/26/18 at 01:45 Labetalol HCl (Normodyne Iv Push) 20 mg 1X ONCE IVP Last administered on at 03:59; Start 09/26/18 at 03:30; Stop 09/26/18 at 03:32; Status DC Diphenhydramine HCl (Benadryl) 25 mg PRN Q6HRS PRN PO ITCHING Last administered on 09/26/18at 04:31; Start 09/26/18 at 04:30 Levofloxacin/ Dextrose 150 ml @ 100 mls/hr Q24H IV ; Start 09/27/18 at 06:00; Stop 09/27/18 at 06:00; Status DC Levofloxacin/ Dextrose 100 ml @ 100 mls/hr Q24H IV Last administered on at 05:58; Start 09/27/18 at 06:00 Aspirin (Robert Aspirin) 325 mg DAILY PO Last administered on 09/27/18 08:41; Start 09/26/18 at 12:00 Metoprolol Succinate (Toprol Xl) 100 mg DAILY PO Last administered on at 12:06; Start 09/26/18 at 12:00; Stop 09/26/18 at 18:29; Status DC Pantoprazole Sodium (Protonix) 40 mg DAILYAC PO Last administered on 09/27/18at 05:58; Start 09/26/18 at 12:00 Trazodone HCl (Desyrel) 50 mg QHS PO Last administered on 09/26/18at 20:34; Start 09/26/18 at 21:00 Trazodone HCl (Desyrel) 100 mg QHS PO ; Start 09/26/18 at 21:00 Citalopram Hydrobromide (CeleXA) 10 mg DAILY PO Last administered on 09/27/18 08:41; Start 09/26/18 at 12:00 Insulin Human Lispro (HumaLOG) 24 units TIDWMEALS SQ Last administered on 08:52; Start 09/26/18 at 12:00 Insulin Glargine (Lantus) 74 units QHS SQ Last administered on 09/26/18at 20:47 ; Start 09/26/18 at 21:00 Levothyroxine Sodium (Synthroid) 250 mcg DAILY06 PO Last administered on at 12:06; Start 09/26/18 at 12:00; Stop 09/26/18 at 17:02; Status DC Losartan Potassium (Cozaar) 100 mg DAILY PO Last administered on 09/27/18 08: 41; Start 09/26/18 at 12:00 Atorvastatin Calcium (Lipitor) 80 mg QHS PO Last administered on 09/26/18at 20: 35; Start 09/26/18 at 21:00 Non-Formulary Medication (Semaglutide (Ozempic)) 0.5 mg QFR SQ ; Start 09/28/18 at 16:00; Status UNV Hydrochlorothiazide (Microzide) 12.5 mg DAILY PO Last administered on at 08:42; Start 09/26/18 at 12:00 Iohexol (Omnipaque 350 Mg/ml) 80 ml 1X ONCE IV Last administered on 09/26/18at 13:15; Start 09/26/18 at 13:15; Stop 09/26/18 at 13:16; Status DC Info (CONTRAST GIVEN -- Rx MONITORING) 1 each PRN DAILY PRN MC SEE COMMENTS; Start 09/26/18 at 13:15; Stop 09/28/18 at 13:14 Magnesium Oxide (Magnesium Oxide) 400 mg 1X ONCE PO Last administered on at 15:23; Start 09/26/18 at 15:00; Stop 09/26/18 at 15:01; Status DC Lactobacillus Rhamnosus (Culturelle) 1 cap BID PO Last administered on at 08:42; Start 09/26/18 at 21:00 Hydralazine HCl (Apresoline Inj) 10 mg PRN Q4HRS PRN IVP ELEVATED BP, SEE COMMENTS; Start 09/26/18 at 16:45 Insulin Glargine (Lantus) 10 units QHS SQ ; Start 09/26/18 at 21:00; Status UNV Insulin Human Lispro (HumaLOG) 0-5 UNITS TIDWMEALS SQ Last administered on 09/27at 08:53; Start 09/26/18 at 17:00 Dextrose (Dextrose 50%-Water Syringe) 12.5 gm PRN Q15MIN PRN IV SEE COMMENTS; Start 09/26/18 at 16:45; Status UNV Levothyroxine Sodium (Synthroid) 100 mcg ONCE ONCE PO Last administered on at 17:46; Start 09/26/18 at 17:30; Stop 09/26/18 at 17:31; Status DC Enoxaparin Sodium (Lovenox 40mg Syringe) 40 mg Q24H SQ Last administered on at 17:46; Start 09/26/18 at 17:00; Stop 09/27/18 at 08:33; Status DC Levothyroxine Sodium (Synthroid) 350 mcg DAILY06 PO Last administered on at 05:57; Start 09/27/18 at 06:00 Carvedilol (Coreg) 12.5 mg BIDWMEALS PO Last administered on 09/27/18at 08:41; Start 09/26/18 at 18:30 Enoxaparin Sodium (Lovenox 60mg Syringe) 60 mg Q12HR SQ Last administered on at 08:41; Start 09/27/18 at 09:00 Active Scripts Active Reported Tresiba Flextouch U-200 (Insulin Degludec) 200 Unit/1 Ml Insuln.pen 64 Unit SQ QHS Ozempic (Semaglutide) 0.25 Mg/0.2 Ml Pen.injctr 0.5 Mg SQ QFR Novolog Flexpen (Insulin Aspart) 100 Unit/1 Ml Insuln.pen 24 Unit SQ TIDWMEALS Levothyroxine Sodium 125 Mcg Tablet 250 Mcg PO DAILYAC Trazodone Hcl 100 Mg Tablet 1 Tab PO QHS Trazodone Hcl 50 Mg Tablet 1 Tab PO QHS Protonix (Pantoprazole Sodium) 40 Mg Tablet.dr 1 Tab PO DAILY Crestor (Rosuvastatin Calcium) 20 Mg Tablet 20 Mg PO HS Aspirin 325 Mg Tablet 1 Tab PO DAILY Losartan-Hctz 100-12.5 Mg Tab (Losartan/Hydrochlorothiazide) 1 Each Tablet 1 Tab PO DAILY Metoprolol Succinate ( Xl ) (Metoprolol Succinate) 100 Mg Tab.er.24h 100 Mg Escitalopram Oxalate 10 Mg Tablet 20 Mg PO DAILY Vitals/I & O Vital Sign - Last 24 Hours 09/26/18 09/26/18 09/26/18 09/26/18 11:00 12:06 12:06 15:00 Temp 97.5 97.5 Pulse 60 60 60 54 Resp 20 18 B/P (MAP) 185/84 (117) 185/84 185/84 178/77 (110) Pulse Ox 77 O2 Delivery BiPAP/CPAP 09/26/18 09/26/18 09/26/18 09/26/18 15:23 19:35 19:44 20:00 Temp 97.4 97.4 Pulse 53 51 51 Resp 18 B/P (MAP) 178/77 159/70 (99) 159/70 Pulse Ox 94 O2 Delivery BiPAP/CPAP Room Air 09/26/18 09/27/18 09/27/18 09/27/18 23:00 00:02 02:44 07:00 Temp 97.6 98.3 97.3 97.6 98.3 97.3 Pulse 51 60 51 Resp 18 16 20 20 B/P (MAP) 166/75 (105) 159/74 (102) 143/65 (91) Pulse Ox 93 93 93 94 O2 Delivery Room Air Room Air Room Air Room Air 09/27/18 09/27/18 08:41 08:41 Pulse 51 51 B/P (MAP) 143/65 143/65 Intake and Output 09/26/18 09/26/18 09/27/18 15:00 23:00 07:00 Intake Total 180 ml 640 ml 240 ml Output Total 0 ml Balance 180 ml 640 ml 240 ml NIKITA DU MD Sep 27, 2018 09:20
--- NOTE | 2018-09-27 10:12 | PDOC ---
JJ RAMÍREZ EAP COUNSELOR 09/27/18 1012: CARDIO Progress Notes Date and Time Date of Service 09/27/2018 Time of Evaluation 0950 Subjective Subjective: No Chest Pain, No shortness of breath, No Palpitations Vitals Vitals Vital Signs Date Time Temp Pulse Resp B/P (MAP) Pulse Ox O2 Delivery O2 Flow Rate FiO2 09/27/18 08:41 51 143/65 09/27/18 08:00 Room Air 09/27/18 07:00 97.3 20 94 97.3 Weight Weight [ ] Input and Output Intake and Output Intake and Output 09/27/18 07:00 Intake Total 1060 ml Output Total 0 ml Balance 1060 ml Intake Oral 1060 ml Output Urine Total 0 ml # Voids 6 Laboratory Labs Laboratory Tests Test 09/26/18 12:14 09/26/18 17:10 09/26/18 20:30 09/27/18 02:34 Glucose (Fingerstick) 216 mg/dL (70-99) 169 mg/dL (70-99) 129 mg/dL (70-99) 136 mg/dL (70-99) Test 09/27/18 03:20 09/27/18 08:02 White Blood Count 6.1 x10^3/uL (4.0-11.0) Red Blood Count 4.37 x10^6/uL (3.50-5.40) Hemoglobin 12.7 g/dL (12.0-15.5) Hematocrit 39.2 % (36.0-47.0) Mean Corpuscular Volume 90 fL (79-100) Mean Corpuscular Hemoglobin 29 pg (25-35) Mean Corpuscular Hemoglobin Concent 33 g/dL (31-37) Red Cell Distribution Width 13.8 % (11.5-14.5) Platelet Count 133 x10^3/uL (140-400) Neutrophils (%) (Auto) 63 % (31-73) Lymphocytes (%) (Auto) 25 % (24-48) Monocytes (%) (Auto) 8 % (0-9) Eosinophils (%) (Auto) 4 % (0-3) Basophils (%) (Auto) 1 % (0-3) Neutrophils # (Auto) 3.8 x10^3uL (1.8-7.7) Lymphocytes # (Auto) 1.5 x10^3/uL (1.0-4.8) Monocytes # (Auto) 0.5 x10^3/uL (0.0-1.1) Eosinophils # (Auto) 0.2 x10^3/uL (0.0-0.7) Basophils # (Auto) 0.0 x10^3/uL (0.0-0.2) Sodium Level 140 mmol/L (136-145) Potassium Level 3.2 mmol/L (3.5-5.1) Chloride Level 101 mmol/L (98-107) Carbon Dioxide Level 31 mmol/L (21-32) Anion Gap 8 (6-14) Blood Urea Nitrogen 13 mg/dL (7-20) Creatinine 0.9 mg/dL (0.6-1.0) Estimated GFR (Cockcroft-Gault) 62.3 BUN/Creatinine Ratio 14 (6-20) Glucose Level 150 mg/dL (70-99) Calcium Level 9.2 mg/dL (8.5-10.1) Total Bilirubin 0.3 mg/dL (0.2-1.0) Aspartate Amino Transf (AST/SGOT) 56 U/L (15-37) Alanine Aminotransferase (ALT/SGPT) 47 U/L (14-59) Alkaline Phosphatase 57 U/L (46-116) Total Protein 7.0 g/dL (6.4-8.2) Albumin 3.1 g/dL (3.4-5.0) Albumin/Globulin Ratio 0.8 (1.0-1.7) Triglycerides Level 295 mg/dL (0-150) Cholesterol Level 182 mg/dL (0-200) LDL Cholesterol, Calculated 88 mg/dL (0-100) VLDL Cholesterol, Calculated 59 mg/dL (0-40) Non-HDL Cholesterol Calculated 147 mg/dL (0-129) HDL Cholesterol 35 mg/dL (40-60) Cholesterol/HDL Ratio 5.2 Glucose (Fingerstick) 169 mg/dL (70-99) Physical Exam HEENT: Neck Supple W Full Motion Chest: Symmetric LUNGS: Clear to Auscultation Heart: S1S2, RRR (SR) Extremities: No Edema, No Calf Tenderness Neurology: alert, oriented, follow commands Assessment Assessment 1. Possible pyelonephritis with nephrolithiasis: urology following 2. Atypical Chest pain: Trop series nml. EKG SR with nonspecific ST-T wave changes, no acute changes. Noncardiac 3. Hypertensive urgency: improving 4. DM2/HLP: A1C 9.1/TG high 5. Hypothyroidism: TSH 42 6. Noncompliance: with diet and skipping meds 7. Hepatic steatosis 8. Morbid obesity/KARENA: CPAP compliant 9. Asymptomatic SB; no pauses. 50-60s Recommendations 1. EF 50%, TAA stable, continue secondary prevention 2. DC HCTZ and start on chlorthalidone 3. Discussed treatment compliance, wt loss, diet modification 4. Urology consult pending. 5. Follow up in 4 weeks. ERIN HENRIQUEZ MD 09/27/18 2210: CARDIO Progress Notes Plan Plan Pt. seen and examined. Agree with above [employer] APPRENTICE note. Continue coreg, chlorthalidone, losartan, amlodipine Will need close outpt f/u with labs upon DC. Supportive care from CV standpoint Pls call with questions JJ RAMÍREZ APRN Sep 27, 2018 10:12 ERIN HENRIQUEZ MD Sep 27, 2018 22:10
[2018-09-27] MEDS ORDERED: fentaNYL PF VIAL 100 MCG/2 ML VIAL IV PRN (10:45)
--- NOTE | 2018-09-27 10:54 | PDOC2 ---
RANJIT NICOLE KNOBBER 09/27/18 1054: UROLOGY CONSULT Date of Consult Date of Consult DATE: 09/27/18 TIME: 10:41 Identification/Chief Complaint Chief Complaint Bilateral kidney stones Source Source: Caregiver, Chart review, Patient History of Present Illness Reason for Visit: Patient is a 68 year old female in generally poor health. She presented through the ED for severe pain. She reports having seen her PCP in June for the same pain in her abdomen and bilateral flanks, but they were unable to come up with a diagnosis at that time. She then came back to her PCP a couple of weeks ago and was told that the reason for her pain was constipation, which she struggles with chronically. Finally, the pain became so intense that she coudln't take it any more and just came into the ER. To her knowledge, this is her first stone. She denies dysuria, hematuria or difficulty emptying her bladder, but is having some constipation like always. Her biggest complaint today is pain 6/10 under her right ribcage going into her right back. However, she does have tenderness in every area of her abdomen and back any time she is touched for an exam. She cannot remember ever having seen a Urologist for any reason. Past Medical History Cardiovascular: HTN, Hyperlipidemia, Other Pulmonary: Other CENTRAL NERVOUS SYSTEM: CVA GI: GERD Heme/Onc: Cancer Hepatobiliary: No pertinent hx Psych: Anxiety, Depression Musculoskeletal: Osteoarthritis Rheumatologic: No pertinent hx Infectious disease: No pertinent hx Renal/: No pertinent hx Endocrine: Diabetes, Hypothyroidism Grav: 0 Para: 0 Past Surgical History Past Surgical History: Hysterectomy Family History Family History: Heart Disease, Hypertension Social History No ALCOHOL: none Drugs: None Lives: with Family Current Problem List Problems: (1) Kidney stones (2) Pyelonephritis Current Medications Current Medications Current Medications Aspirin (Robert Aspirin) 325 mg DAILY PO Last administered on 09/27/18at 08:41; Start 09/26/18 at 12:00 Atorvastatin Calcium (Lipitor) 80 mg QHS PO Last administered on 09/26/18at 20: 35; Start 09/26/18 at 21:00 Carvedilol (Coreg) 12.5 mg BIDWMEALS PO Last administered on 09/27/18at 08:41; Start 09/26/18 at 18:30 Chlorthalidone (Thalitone) 25 mg DAILY PO ; Start 09/27/18 at 11:00 Citalopram Hydrobromide (CeleXA) 10 mg DAILY PO Last administered on 09/27/18at 08:41; Start 09/26/18 at 12:00 Dextrose (Dextrose 50%-Water Syringe) 12.5 gm PRN Q15MIN PRN IV SEE COMMENTS; Start 09/26/18 at 16:45; Status UNV Enoxaparin Sodium (Lovenox 40mg Syringe) 40 mg Q24H SQ Last administered on at 17:46; Start 09/26/18 at 17:00; Stop 09/27/18 at 08:33; Status DC Enoxaparin Sodium (Lovenox 60mg Syringe) 60 mg Q12HR SQ Last administered on at 08:41; Start 09/27/18 at 09:00 Fentanyl Citrate (Fentanyl 2ml Vial) 25 mcg PRN Q2HR PRN IV PAIN; Start at 10:45 Fentanyl Citrate (Fentanyl 2ml Vial) 50 mcg PRN Q2HR PRN IV PAIN; Start at 10:45 Hydralazine HCl (Apresoline Inj) 10 mg PRN Q4HRS PRN IVP ELEVATED BP, SEE COMMENTS; Start 09/26/18 at 16:45 Hydrochlorothiazide (Microzide) 12.5 mg DAILY PO Last administered on at 08:42; Start 09/26/18 at 12:00; Stop 09/27/18 at 10:12; Status DC Info (CONTRAST GIVEN -- Rx MONITORING) 1 each PRN DAILY PRN MC SEE COMMENTS; Start 09/26/18 at 13:15; Stop 09/28/18 at 13:14 Insulin Glargine (Lantus) 10 units QHS SQ ; Start 09/26/18 at 21:00; Status UNV Insulin Glargine (Lantus) 74 units QHS SQ Last administered on 09/26/18at 20:47 ; Start 09/26/18 at 21:00 Insulin Human Lispro (HumaLOG) 0-5 UNITS TIDWMEALS SQ Last administered on 09/27at 08:53; Start 09/26/18 at 17:00 Insulin Human Lispro (HumaLOG) 24 units TIDWMEALS SQ Last administered on at 08:52; Start 09/26/18 at 12:00 Iohexol (Omnipaque 350 Mg/ml) 80 ml 1X ONCE IV Last administered on 09/26/18at 13:15; Start 09/26/18 at 13:15; Stop 09/26/18 at 13:16; Status DC Lactobacillus Rhamnosus (Culturelle) 1 cap BID PO Last administered on at 08:42; Start 09/26/18 at 21:00 Levofloxacin/ Dextrose 100 ml @ 100 mls/hr Q24H IV Last administered on at 05:58; Start 09/27/18 at 06:00 Levofloxacin/ Dextrose 150 ml @ 100 mls/hr Q24H IV ; Start 09/27/18 at 06:00; Stop 09/27/18 at 06:00; Status DC Levothyroxine Sodium (Synthroid) 100 mcg ONCE ONCE PO Last administered on at 17:46; Start 09/26/18 at 17:30; Stop 09/26/18 at 17:31; Status DC Levothyroxine Sodium (Synthroid) 250 mcg DAILY06 PO Last administered on at 12:06; Start 09/26/18 at 12:00; Stop 09/26/18 at 17:02; Status DC Levothyroxine Sodium (Synthroid) 350 mcg DAILY06 PO Last administered on at 05:57; Start 09/27/18 at 06:00 Losartan Potassium (Cozaar) 100 mg DAILY PO Last administered on 09/27/18at 08: 41; Start 09/26/18 at 12:00 Magnesium Oxide (Magnesium Oxide) 400 mg 1X ONCE PO Last administered on at 15:23; Start 09/26/18 at 15:00; Stop 09/26/18 at 15:01; Status DC Metoprolol Succinate (Toprol Xl) 100 mg DAILY PO Last administered on at 12:06; Start 09/26/18 at 12:00; Stop 09/26/18 at 18:29; Status DC Non-Formulary Medication (Semaglutide (Ozempic)) 0.5 mg QFR SQ ; Start 09/28/18 at 16:00; Status UNV Pantoprazole Sodium (Protonix) 40 mg DAILYAC PO Last administered on 09/27/18at 05:58; Start 09/26/18 at 12:00 Trazodone HCl (Desyrel) 50 mg QHS PO Last administered on 09/26/18at 20:34; Start 09/26/18 at 21:00 Trazodone HCl (Desyrel) 100 mg QHS PO ; Start 09/26/18 at 21:00 Allergies Allergies: Coded Allergies: morphine (Verified Allergy, Intermediate, tolerates Dilaudid & Percocet, ) ceftriaxone (Verified Allergy, Mild, rash, 09/26/18) lovastatin (Verified Adverse Reaction, Intermediate, CAUSES MUSCLE SPASMS , 09/11/16) ROS Review Of Systems: CONSTITUTIONAL: No fever or chills EYES: No recent changes SKIN: No rash or itching CARDIOVASCULAR: No chest pain, syncope, palpitations, or edema RESPIRATORY: No SOB or cough GASTROINTESTINAL: + abdominal pain bilaterally NEUROLOGICAL: No headaches or weakness ENDOCRINE: No cold or heat intolerance GENITOURINARY: No urgency or frequency of urination MUSCULOSKELETAL: + abd pain/flank pain bilaterally. LYMPHATICS: No enlarged lymph nodes PSYCHIATRIC: No anxiety or depression Physical Exam Physical Exam: General: Pleasant, no acute distress, well groomed Eyes: conjunctiva anicteric, eyes full range of motion ENT: moist oral mucosa, normal dentition Neck: Trachea midline, no masses Respiratory: unlabored breathing, not using accessory muscles, no crackles or wheezes Cardiovascular: Regular rate and rhythm, no peripheral edema Abdomen: nontender, nondistended, no hepatosplenomegaly, no masses Skin: no rashes or skin lesions on visualized skin Psych: normal mood, affect. Alert and oriented x 3. Vitals VITALS Vital Signs Date Time Temp Pulse Resp B/P (MAP) Pulse Ox O2 Delivery O2 Flow Rate FiO2 09/27/18 08:41 51 143/65 09/27/18 08:00 Room Air 09/27/18 07:00 97.3 20 94 97.3 Labs Labs Laboratory Tests Test 09/25/18 21:41 09/25/18 23:01 09/26/18 02:47 09/26/18 05:40 White Blood Count 7.1 x10^3/uL (4.0-11.0) Red Blood Count 4.71 x10^6/uL (3.50-5.40) Hemoglobin 14.0 g/dL (12.0-15.5) Hematocrit 42.4 % (36.0-47.0) Mean Corpuscular Volume 90 fL (79-100) Mean Corpuscular Hemoglobin 30 pg (25-35) Mean Corpuscular Hemoglobin Concent 33 g/dL (31-37) Red Cell Distribution Width 14.0 % (11.5-14.5) Platelet Count 151 x10^3/uL (140-400) Neutrophils (%) (Auto) 70 % (31-73) Lymphocytes (%) (Auto) 18 % (24-48) Monocytes (%) (Auto) 8 % (0-9) Eosinophils (%) (Auto) 3 % (0-3) Basophils (%) (Auto) 1 % (0-3) Neutrophils # (Auto) 4.9 x10^3uL (1.8-7.7) Lymphocytes # (Auto) 1.3 x10^3/uL (1.0-4.8) Monocytes # (Auto) 0.6 x10^3/uL (0.0-1.1) Eosinophils # (Auto) 0.2 x10^3/uL (0.0-0.7) Basophils # (Auto) 0.0 x10^3/uL (0.0-0.2) Sodium Level 136 mmol/L (136-145) 139 mmol/L (136-145) Potassium Level 4.0 mmol/L (3.5-5.1) 3.8 mmol/L (3.5-5.1) Chloride Level 98 mmol/L (98-107) 99 mmol/L (98-107) Carbon Dioxide Level 33 mmol/L (21-32) 29 mmol/L (21-32) Anion Gap 5 (6-14) 11 (6-14) Blood Urea Nitrogen 13 mg/dL (7-20) 12 mg/dL (7-20) Creatinine 1.0 mg/dL (0.6-1.0) 1.0 mg/dL (0.6-1.0) Estimated GFR (Cockcroft-Gault) 55.1 55.1 BUN/Creatinine Ratio 13 (6-20) Glucose Level 337 mg/dL (70-99) 290 mg/dL (70-99) Calcium Level 9.0 mg/dL (8.5-10.1) 9.1 mg/dL (8.5-10.1) Total Bilirubin 0.3 mg/dL (0.2-1.0) Aspartate Amino Transf (AST/SGOT) 75 U/L (15-37) Alanine Aminotransferase (ALT/SGPT) 61 U/L (14-59) Alkaline Phosphatase 70 U/L (46-116) Creatine Kinase 279 U/L (26-192) Creatine Kinase MB (Mass) 3.0 ng/mL (0.0-3.6) Creatine Kinase MB Relative Index 1.1 % (0-4) Troponin I Quantitative < 0.017 ng/mL (0.000-0.055) < 0.017 ng/mL (0.000-0.055) 0.026 ng/mL (0.000-0.055) Total Protein 7.7 g/dL (6.4-8.2) Albumin 3.3 g/dL (3.4-5.0) Albumin/Globulin Ratio 0.8 (1.0-1.7) Urine Collection Type Void Urine Color Yellow Urine Clarity Cloudy Urine pH 7.5 Urine Specific [place] 1.020 Urine Protein >=300 mg/dL (NEG-TRACE) Urine Glucose (UA) >=1000 mg/dL (NEG) Urine Ketones (Stick) Negative mg/dL (NEG) Urine Blood Large (NEG) Urine Nitrite Negative (NEG) Urine Bilirubin Negative (NEG) Urine Urobilinogen Dipstick 1.0 mg/dL (0.2 mg/dL) Urine Leukocyte Esterase Moderate (NEG) Urine RBC Tntc /HPF (0-2) Urine WBC Tntc /HPF (0-4) Urine Squamous Epithelial Cells Mod /LPF Urine Bacteria Few /HPF (0-FEW) Hemoglobin A1c 9.1 % (4.8-5.6) Magnesium Level 1.7 mg/dL (1.8-2.4) Triglycerides Level 261 mg/dL (0-150) Cholesterol Level 190 mg/dL (0-200) LDL Cholesterol, Calculated 99 mg/dL (0-100) VLDL Cholesterol, Calculated 52 mg/dL (0-40) Non-HDL Cholesterol Calculated 151 mg/dL (0-129) HDL Cholesterol 39 mg/dL (40-60) Cholesterol/HDL Ratio 4.9 Thyroid Stimulating Hormone (TSH) 42.273 uIU/mL (0.358-3.74) Test 09/26/18 07:37 09/26/18 12:14 09/26/18 17:10 09/26/18 20:30 Glucose (Fingerstick) 294 mg/dL (70-99) 216 mg/dL (70-99) 169 mg/dL (70-99) 129 mg/dL (70-99) Test 09/27/18 02:34 09/27/18 03:20 09/27/18 08:02 Glucose (Fingerstick) 136 mg/dL (70-99) 169 mg/dL (70-99) White Blood Count 6.1 x10^3/uL (4.0-11.0) Red Blood Count 4.37 x10^6/uL (3.50-5.40) Hemoglobin 12.7 g/dL (12.0-15.5) Hematocrit 39.2 % (36.0-47.0) Mean Corpuscular Volume 90 fL (79-100) Mean Corpuscular Hemoglobin 29 pg (25-35) Mean Corpuscular Hemoglobin Concent 33 g/dL (31-37) Red Cell Distribution Width 13.8 % (11.5-14.5) Platelet Count 133 x10^3/uL (140-400) Neutrophils (%) (Auto) 63 % (31-73) Lymphocytes (%) (Auto) 25 % (24-48) Monocytes (%) (Auto) 8 % (0-9) Eosinophils (%) (Auto) 4 % (0-3) Basophils (%) (Auto) 1 % (0-3) Neutrophils # (Auto) 3.8 x10^3uL (1.8-7.7) Lymphocytes # (Auto) 1.5 x10^3/uL (1.0-4.8) Monocytes # (Auto) 0.5 x10^3/uL (0.0-1.1) Eosinophils # (Auto) 0.2 x10^3/uL (0.0-0.7) Basophils # (Auto) 0.0 x10^3/uL (0.0-0.2) Sodium Level 140 mmol/L (136-145) Potassium Level 3.2 mmol/L (3.5-5.1) Chloride Level 101 mmol/L (98-107) Carbon Dioxide Level 31 mmol/L (21-32) Anion Gap 8 (6-14) Blood Urea Nitrogen 13 mg/dL (7-20) Creatinine 0.9 mg/dL (0.6-1.0) Estimated GFR (Cockcroft-Gault) 62.3 BUN/Creatinine Ratio 14 (6-20) Glucose Level 150 mg/dL (70-99) Calcium Level 9.2 mg/dL (8.5-10.1) Total Bilirubin 0.3 mg/dL (0.2-1.0) Aspartate Amino Transf (AST/SGOT) 56 U/L (15-37) Alanine Aminotransferase (ALT/SGPT) 47 U/L (14-59) Alkaline Phosphatase 57 U/L (46-116) Total Protein 7.0 g/dL (6.4-8.2) Albumin 3.1 g/dL (3.4-5.0) Albumin/Globulin Ratio 0.8 (1.0-1.7) Triglycerides Level 295 mg/dL (0-150) Cholesterol Level 182 mg/dL (0-200) LDL Cholesterol, Calculated 88 mg/dL (0-100) VLDL Cholesterol, Calculated 59 mg/dL (0-40) Non-HDL Cholesterol Calculated 147 mg/dL (0-129) HDL Cholesterol 35 mg/dL (40-60) Cholesterol/HDL Ratio 5.2 Laboratory Tests Test 09/26/18 12:14 09/26/18 17:10 09/26/18 20:30 09/27/18 02:34 Glucose (Fingerstick) 216 mg/dL (70-99) 169 mg/dL (70-99) 129 mg/dL (70-99) 136 mg/dL (70-99) Test 09/27/18 03:20 09/27/18 08:02 White Blood Count 6.1 x10^3/uL (4.0-11.0) Red Blood Count 4.37 x10^6/uL (3.50-5.40) Hemoglobin 12.7 g/dL (12.0-15.5) Hematocrit 39.2 % (36.0-47.0) Mean Corpuscular Volume 90 fL (79-100) Mean Corpuscular Hemoglobin 29 pg (25-35) Mean Corpuscular Hemoglobin Concent 33 g/dL (31-37) Red Cell Distribution Width 13.8 % (11.5-14.5) Platelet Count 133 x10^3/uL (140-400) Neutrophils (%) (Auto) 63 % (31-73) Lymphocytes (%) (Auto) 25 % (24-48) Monocytes (%) (Auto) 8 % (0-9) Eosinophils (%) (Auto) 4 % (0-3) Basophils (%) (Auto) 1 % (0-3) Neutrophils # (Auto) 3.8 x10^3uL (1.8-7.7) Lymphocytes # (Auto) 1.5 x10^3/uL (1.0-4.8) Monocytes # (Auto) 0.5 x10^3/uL (0.0-1.1) Eosinophils # (Auto) 0.2 x10^3/uL (0.0-0.7) Basophils # (Auto) 0.0 x10^3/uL (0.0-0.2) Sodium Level 140 mmol/L (136-145) Potassium Level 3.2 mmol/L (3.5-5.1) Chloride Level 101 mmol/L (98-107) Carbon Dioxide Level 31 mmol/L (21-32) Anion Gap 8 (6-14) Blood Urea Nitrogen 13 mg/dL (7-20) Creatinine 0.9 mg/dL (0.6-1.0) Estimated GFR (Cockcroft-Gault) 62.3 BUN/Creatinine Ratio 14 (6-20) Glucose Level 150 mg/dL (70-99) Calcium Level 9.2 mg/dL (8.5-10.1) Total Bilirubin 0.3 mg/dL (0.2-1.0) Aspartate Amino Transf (AST/SGOT) 56 U/L (15-37) Alanine Aminotransferase (ALT/SGPT) 47 U/L (14-59) Alkaline Phosphatase 57 U/L (46-116) Total Protein 7.0 g/dL (6.4-8.2) Albumin 3.1 g/dL (3.4-5.0) Albumin/Globulin Ratio 0.8 (1.0-1.7) Triglycerides Level 295 mg/dL (0-150) Cholesterol Level 182 mg/dL (0-200) LDL Cholesterol, Calculated 88 mg/dL (0-100) VLDL Cholesterol, Calculated 59 mg/dL (0-40) Non-HDL Cholesterol Calculated 147 mg/dL (0-129) HDL Cholesterol 35 mg/dL (40-60) Cholesterol/HDL Ratio 5.2 Glucose (Fingerstick) 169 mg/dL (70-99) Images Images IMPRESSION: 1. Liver is mildly enlarged. 2. Multiple bilateral nonobstructing renal calculi are seen. 3. The largest is in the interpolar right kidney extending to the renal pelvis measuring 3.7 cm. Associated inflammatory changes are seen about the right renal pelvis. Assessment/Plan Assessment/Plan Pt has several large stones that will require either staged ureteroscopy or percutaneous approach. Likely she will need more than one surgery to completely rid her of stone burden. Stones may be the cause of some of her pain, but I do not believe they are the exclusive source. Recommend good bowel program. Tylenol and Fentanyl for pain control A follow up appointment has been secured for patient on 10/17/18 on 220 pm. Appointment card and new patient paperwork given to patient. ANNE TAVERAS MD 09/27/18 1519: UROLOGY CONSULT Assessment/Plan Assessment/Plan Patient seen and examined. Agree with assessment and plan. F/U as outpatient to discuss stone treatment - probably staged ureteroscopies. She may be too obese for ESWL or PCNL. RANJIT NICOLE APRN Sep 27, 2018 10:54 ANNE TAVERAS MD Sep 27, 2018 15:19
[2018-09-27 11:00] VITALS: BP 158/70
[2018-09-27] MEDS ORDERED: ACETAMINOPHEN 325 MG TABLET. PO PRN (11:00)
[2018-09-27] MEDS: CHLORTHALIDONE 25 MG TABLET. PO SCH (13:33)
[2018-09-27] MEDS ORDERED: POTASSIUM CHLORIDE 20 MEQ TABLET.ER. PO ONE (15:00)
[2018-09-27] MEDS ORDERED: amLODIPine BESYLATE 5 MG TABLET PO ONE (15:30)
--- NOTE | 2018-09-27 15:55 | NUR ---
Upon recheck of BP it was found to be 123/59. Non-administered one time dose of amlodipine. Pt has a dose of Coreg due at 1700. Will administer as ordered.
[2018-09-27 15:58] VITALS: BP 123/59
[2018-09-27] MEDS: LIDOCAINE (700MG/PATCH) PATCH. TD SCH (16:02)
[2018-09-27] MEDS ORDERED: methylPREDNISolone ACETATE 40 MG/ML VIAL. IM ONE ×2 (17:45)
[2018-09-27] MEDS ORDERED: BUPIVACAINE MPF 0.25% 10 ML VIAL. IJ ONE (17:45)
[2018-09-27 19:00] VITALS: BP 139/62
[2018-09-27] MEDS ORDERED: PIP/TAZO PER PHARMACY MC PRN (19:15)
--- NOTE | 2018-09-27 19:52 | PDOC ---
Infectious Disease Note Subjective: Subjective Pt seen and examined Consult dictated ROS: ROS Negative except for above. Vital Signs: Vital Signs Vital Signs Date Time Temp Pulse Resp B/P (MAP) Pulse Ox O2 Delivery O2 Flow Rate FiO2 09/27/18 17:43 57 183/84 09/27/18 15:58 97.7 20 90 Room Air 97.7 Medications: Inpatient Meds: Current Medications Medications (Trade) Dose Ordered Sig/Nader Start Time Stop Time Status Last Admin Dose Admin Acetaminophen (Tylenol) 650 mg PRN Q6HRS PRN 09/27/18 11:00 Amlodipine Besylate (Norvasc) 10 mg DAILY 09/28/18 09:00 Aspirin (Robert Aspirin) 325 mg DAILY 09/26/18 12:00 09/27/18 08:41 325 MG Atorvastatin Calcium (Lipitor) 80 mg QHS 09/26/18 21:00 09/26/18 20:35 80 MG Bupivacaine HCl (Sensorcaine-Mpf 0.25%) 10 ml 1X ONCE 09/27/18 17:45 09/27/18 17:46 DC Carvedilol (Coreg) 12.5 mg BIDWMEALS 09/26/18 18:30 09/27/18 17:43 12.5 MG Ceftriaxone Sodium (Rocephin) 1 gm 1X ONCE 09/26/18 01:45 09/26/18 01:46 DC 09/26/18 02:20 1 GM Chlorthalidone (Thalitone) 25 mg DAILY 09/27/18 11:00 09/27/18 13:33 25 MG Citalopram Hydrobromide (CeleXA) 10 mg DAILY 09/26/18 12:00 09/27/18 08:41 10 MG Clonidine HCl (Catapres) 0.1 mg PRN Q8HRS PRN 09/26/18 01:45 09/26/18 15:23 0.1 MG Dextrose (Dextrose 50%-Water Syringe) 12.5 gm PRN Q15MIN PRN 09/26/18 16:45 UNV Diclofenac Sodium (Voltaren) 1 [place] BID 09/27/18 21:00 Diphenhydramine HCl (Benadryl) 25 mg PRN Q6HRS PRN 09/26/18 04:30 09/26/18 04:31 25 MG Enoxaparin Sodium (Lovenox 40mg Syringe) 40 mg Q24H 09/26/18 17:00 09/27/18 08:33 DC 09/26/18 17:46 40 MG Enoxaparin Sodium (Lovenox 60mg Syringe) 60 mg Q12HR 09/27/18 09:00 09/27/18 08:41 60 MG Fentanyl Citrate (Fentanyl 2ml Vial) 25 mcg PRN Q2HR PRN 09/27/18 10:45 09/27/18 13:27 25 MCG Hydralazine HCl (Apresoline Inj) 10 mg PRN Q4HRS PRN 09/26/18 16:45 Hydrochlorothiazide (Microzide) 12.5 mg DAILY 09/26/18 12:00 09/27/18 10:12 DC 09/27/18 08:42 12.5 MG Info (CONTRAST GIVEN -- Rx MONITORING) 1 each PRN DAILY PRN 09/26/18 13:15 09/28/18 13:14 Insulin Glargine (Lantus) 10 units QHS 09/26/18 21:00 UNV Insulin Human Lispro (HumaLOG) 0-5 UNITS TIDWMEALS 09/26/18 17:00 09/27/18 12:33 2 UNITS Insulin Human Regular (HumuLIN R VIAL) 6 unit 1X ONCE 09/26/18 01:45 09/26/18 01:46 DC 09/26/18 02:20 6 UNIT Iohexol (Omnipaque 350 Mg/ml) 80 ml 1X ONCE 09/26/18 13:15 09/26/18 13:16 DC 09/26/18 13:15 80 ML Labetalol HCl (Normodyne Iv Push) 20 mg 1X ONCE 09/26/18 03:30 09/26/18 03:32 DC 09/26/18 03:59 20 MG Lactobacillus Rhamnosus (Culturelle) 1 cap BID 09/26/18 21:00 09/27/18 08:42 1 CAP Levofloxacin/ Dextrose 100 ml @ 100 mls/hr Q24H 09/27/18 06:00 09/27/18 05:58 100 MLS/HR Levothyroxine Sodium (Synthroid) 350 mcg DAILY06 09/27/18 06:00 09/27/18 05:57 350 MCG Lidocaine (Lidoderm) 1 patch DAILY 09/27/18 15:00 09/27/18 16:02 1 PATCH Losartan Potassium (Cozaar) 100 mg DAILY 09/26/18 12:00 09/27/18 08:41 100 MG Magnesium Oxide (Magnesium Oxide) 400 mg 1X ONCE 09/26/18 15:00 09/26/18 15:01 DC 09/26/18 15:23 400 MG Methylprednisolone Acetate (DEPO-Medrol 40MG VIAL) 40 mg 1X ONCE 09/27/18 17:45 09/27/18 17:46 DC Metoprolol Succinate (Toprol Xl) 100 mg DAILY 09/26/18 12:00 09/26/18 18:29 DC 09/26/18 12:06 100 MG Metoprolol Tartrate (Lopressor Vial) 5 mg 1X ONCE 09/25/18 23:15 09/25/18 23:16 DC 09/25/18 23:32 5 MG Miscellaneous (Lidoderm Patch Removal) 1 ea QHS 09/27/18 21:00 Nitroglycerin (Nitrostat) 0.4 mg PRN Q5MIN PRN 09/26/18 01:45 09/27/18 01:44 DC Non-Formulary Medication (Semaglutide (Ozempic)) 0.5 mg QFR 09/28/18 16:00 UNV Ondansetron HCl (Zofran) 4 mg PRN Q8HRS PRN 09/26/18 01:45 09/27/18 01:44 DC Pantoprazole Sodium (Protonix) 40 mg DAILYAC 09/26/18 12:00 09/27/18 05:58 40 MG Potassium Chloride (Klor-Con) 20 meq DAILYWBKFT 09/28/18 08:00 Trazodone HCl (Desyrel) 100 mg QHS 09/26/18 21:00 Labs: Lab Laboratory Tests Test 09/26/18 20:30 09/27/18 02:34 09/27/18 03:20 09/27/18 08:02 Glucose (Fingerstick) 129 mg/dL (70-99) 136 mg/dL (70-99) 169 mg/dL (70-99) White Blood Count 6.1 x10^3/uL (4.0-11.0) Red Blood Count 4.37 x10^6/uL (3.50-5.40) Hemoglobin 12.7 g/dL (12.0-15.5) Hematocrit 39.2 % (36.0-47.0) Mean Corpuscular Volume 90 fL (79-100) Mean Corpuscular Hemoglobin 29 pg (25-35) Mean Corpuscular Hemoglobin Concent 33 g/dL (31-37) Red Cell Distribution Width 13.8 % (11.5-14.5) Platelet Count 133 x10^3/uL (140-400) Neutrophils (%) (Auto) 63 % (31-73) Lymphocytes (%) (Auto) 25 % (24-48) Monocytes (%) (Auto) 8 % (0-9) Eosinophils (%) (Auto) 4 % (0-3) Basophils (%) (Auto) 1 % (0-3) Neutrophils # (Auto) 3.8 x10^3uL (1.8-7.7) Lymphocytes # (Auto) 1.5 x10^3/uL (1.0-4.8) Monocytes # (Auto) 0.5 x10^3/uL (0.0-1.1) Eosinophils # (Auto) 0.2 x10^3/uL (0.0-0.7) Basophils # (Auto) 0.0 x10^3/uL (0.0-0.2) Sodium Level 140 mmol/L (136-145) Potassium Level 3.2 mmol/L (3.5-5.1) Chloride Level 101 mmol/L (98-107) Carbon Dioxide Level 31 mmol/L (21-32) Anion Gap 8 (6-14) Blood Urea Nitrogen 13 mg/dL (7-20) Creatinine 0.9 mg/dL (0.6-1.0) Estimated GFR (Cockcroft-Gault) 62.3 BUN/Creatinine Ratio 14 (6-20) Glucose Level 150 mg/dL (70-99) Calcium Level 9.2 mg/dL (8.5-10.1) Total Bilirubin 0.3 mg/dL (0.2-1.0) Aspartate Amino Transf (AST/SGOT) 56 U/L (15-37) Alanine Aminotransferase (ALT/SGPT) 47 U/L (14-59) Alkaline Phosphatase 57 U/L (46-116) Total Protein 7.0 g/dL (6.4-8.2) Albumin 3.1 g/dL (3.4-5.0) Albumin/Globulin Ratio 0.8 (1.0-1.7) Triglycerides Level 295 mg/dL (0-150) Cholesterol Level 182 mg/dL (0-200) LDL Cholesterol, Calculated 88 mg/dL (0-100) VLDL Cholesterol, Calculated 59 mg/dL (0-40) Non-HDL Cholesterol Calculated 147 mg/dL (0-129) HDL Cholesterol 35 mg/dL (40-60) Cholesterol/HDL Ratio 5.2 Test 09/27/18 12:17 09/27/18 17:13 Glucose (Fingerstick) 166 mg/dL (70-99) 150 mg/dL (70-99) Objective: Assessment: Bilateral flank pain Rt > LT Pyuria, UC neg so far Extensive obstructive uropathy from nephrolithiasis Large 3.2 cm in width in rt renal collecting system with chronic inflammation or scarring HTN Urgency Protein calorie malnutrition Atypical Chest pain DM2/HLP Hypothyroidism H/O UTIs in the past Hepatic steatosis Morbid obesity KARENA H/O E coli urosepsis 10/2017 H/O proteus bacteremia 08/2016 Dilated ascending aorta 4.7 cm h/o CVA GERD Cancer (uterine ) Anxiety, Depression Osteoarthritis Tendinitis from ? Levaquin Rash from Ceftriaxone this admission Has tolerated Zosyn well in the past Plan: Plan of Care Dc levaquin zosyn pt has tolerated it well in the past F/U UC urology evaluated pt and she is not a candidate for ESWL or PCNL Cont supportive care thank you [id number] LAURA BRAND MD Sep 27, 2018 19:52
[2018-09-27] MEDS: ATORVASTATIN CALCIUM 40 MG TABLET. PO SCH (20:31)
[2018-09-27] MEDS: traZODone 50 MG TABLET. PO SCH (20:31)
[2018-09-27] MEDS: INSULIN GLARGINE 300 UNITS/3 ML INSULN.PEN. SQ SCH (20:40)
[2018-09-27] MEDS: traZODone 100 MG TABLET. PO SCH (21:00)
[2018-09-27] MEDS: DICLOFENAC SODIUM 1% TOPICAL GEL 100GM TUBE. TP SCH (21:33)
[2018-09-27 23:40] VITALS: BP 182/79
[2018-09-28] VITALS (7 sets, daily range): BP systolic 130–167; BP diastolic 51–69
[2018-09-28] MEDS: PIPERACILLIN/TAZOBACTAM 3.375 GM in IV NORMAL SALINE 50ML 50 ML IV SCH ×4 (00:08→18:05)
[2018-09-28] MEDS: PATCH REMOVAL. MC SCH ×2 (00:08→21:20)
[2018-09-28 04:42] LABS: BASO % 1 % (0-3); EOS # 0.2 x10^3/uL (0.0-0.7); EOS % 4 % (0-3); HEMATOCRIT 40.7 % (36.0-47.0); HEMOGLOBIN 13.1 g/dL (12.0-15.5); LYMPH # 1.7 x10^3/uL (1.0-4.8); LYMPH % 31 % (24-48); MEAN CORPUSCULAR HEMOGLOBIN 29 pg (25-35); MEAN CORPUSCULAR HGB CONC 32 g/dL (31-37); MEAN CORPUSCULAR VOLUME 90 fL (79-100); MONO # 0.5 x10^3/uL (0.0-1.1); MONO % 8 % (0-9); NEUT # 3.1 x10^3uL (1.8-7.7); NEUT % 57 % (31-73); PLATELET COUNT 133 x10^3/uL (140-400); RED BLOOD COUNT 4.52 x10^6/uL (3.50-5.40); RED CELL DISTRIBUTION WIDTH 14.3 % (11.5-14.5); WHITE BLOOD COUNT 5.5 x10^3/uL (4.0-11.0)
[2018-09-28 05:11] LABS: ALBUMIN 3.1 g/dL (3.4-5.0); ALBUMIN/GLOBULIN RATIO 0.8 (1.0-1.7); CALCIUM 9.6 mg/dL (8.5-10.1); CREATININE 1.1 mg/dL (0.6-1.0); GFR 49.4; POTASSIUM 3.3 mmol/L (3.5-5.1); TOTAL BILIRUBIN 0.4 mg/dL (0.2-1.0); TOTAL PROTEIN 7.1 g/dL (6.4-8.2)
[2018-09-28] MEDS: PANTOPRAZOLE 40 MG TABLET.DR. PO SCH (05:40)
[2018-09-28] MEDS: LEVOTHYROXINE 100 MCG TABLET PO SCH (05:40)
[2018-09-28] MEDS: INSULIN LISPRO 300 UNITS/3 ML INSULN.PEN. SQ SCH ×6 (08:00→17:00)
[2018-09-28] MEDS: ASPIRIN 325 MG TABLET PO SCH (08:42)
[2018-09-28] MEDS: POTASSIUM CHLORIDE 20 MEQ TABLET.ER. PO SCH (08:42)
[2018-09-28] MEDS: CHLORTHALIDONE 25 MG TABLET. PO SCH (08:42)
[2018-09-28] MEDS: amLODIPine BESYLATE 10 MG TABLET PO SCH (08:43)
[2018-09-28] MEDS: CITALOPRAM 10 MG TABLET. PO SCH (08:43)
[2018-09-28] MEDS: LOSARTAN POTASSIUM 50 MG TABLET. PO SCH (08:43)
[2018-09-28] MEDS: LACTOBACILLUS RHAMNOSUS GG 1 CAPSULE. PO SCH ×2 (08:43→21:20)
[2018-09-28] MEDS: CARVEDILOL 12.5 MG TABLET. PO SCH ×2 (08:44→18:02)
[2018-09-28] MEDS: DICLOFENAC SODIUM 1% TOPICAL GEL 100GM TUBE. TP SCH ×2 (08:50→21:24)
[2018-09-28] MEDS: LIDOCAINE (700MG/PATCH) PATCH. TD SCH (08:52)
--- NOTE | 2018-09-28 08:53 | PDOC ---
PROGRESS NOTES Subjective Subjective No new complaints. Objective Objective Vital Signs Date Time Temp Pulse Resp B/P (MAP) Pulse Ox O2 Delivery O2 Flow Rate FiO2 09/28/18 08:44 61 165/70 09/28/18 07:00 98.0 18 95 BiPAP/CPAP 98.0 09/27/18 19:00 2.0 Intake and Output 09/28/18 07:00 Intake Total 700 ml Balance 700 ml Intake Oral 700 ml # Voids 1 Physical Exam Physical Exam She is comfortable supine in bed with head end of bed elevated and eating breakfast but still admits back and hip and knee pain with mobility but is still hesitant about injections. Assessment Assessment Problems Medical Problems: (1) Accelerated hypertension Status: Acute (2) Chest pain Status: Acute (3) Hyperglycemia Status: Acute (4) Pyelonephritis Status: Acute Plan Plan of Care To consider injecting painful trochanteric bursa and sacroiliac joint when she feels to have. Comment Review of Relevant I have reviewed the following items jeffrey (where applicable) has been applied. Labs Laboratory Tests Test 09/26/18 12:14 09/26/18 17:10 09/26/18 20:30 09/27/18 02:34 Glucose (Fingerstick) 216 mg/dL (70-99) 169 mg/dL (70-99) 129 mg/dL (70-99) 136 mg/dL (70-99) Test 09/27/18 03:20 09/27/18 08:02 09/27/18 12:17 09/27/18 17:13 White Blood Count 6.1 x10^3/uL (4.0-11.0) Red Blood Count 4.37 x10^6/uL (3.50-5.40) Hemoglobin 12.7 g/dL (12.0-15.5) Hematocrit 39.2 % (36.0-47.0) Mean Corpuscular Volume 90 fL (79-100) Mean Corpuscular Hemoglobin 29 pg (25-35) Mean Corpuscular Hemoglobin Concent 33 g/dL (31-37) Red Cell Distribution Width 13.8 % (11.5-14.5) Platelet Count 133 x10^3/uL (140-400) Neutrophils (%) (Auto) 63 % (31-73) Lymphocytes (%) (Auto) 25 % (24-48) Monocytes (%) (Auto) 8 % (0-9) Eosinophils (%) (Auto) 4 % (0-3) Basophils (%) (Auto) 1 % (0-3) Neutrophils # (Auto) 3.8 x10^3uL (1.8-7.7) Lymphocytes # (Auto) 1.5 x10^3/uL (1.0-4.8) Monocytes # (Auto) 0.5 x10^3/uL (0.0-1.1) Eosinophils # (Auto) 0.2 x10^3/uL (0.0-0.7) Basophils # (Auto) 0.0 x10^3/uL (0.0-0.2) Sodium Level 140 mmol/L (136-145) Potassium Level 3.2 mmol/L (3.5-5.1) Chloride Level 101 mmol/L (98-107) Carbon Dioxide Level 31 mmol/L (21-32) Anion Gap 8 (6-14) Blood Urea Nitrogen 13 mg/dL (7-20) Creatinine 0.9 mg/dL (0.6-1.0) Estimated GFR (Cockcroft-Gault) 62.3 BUN/Creatinine Ratio 14 (6-20) Glucose Level 150 mg/dL (70-99) Calcium Level 9.2 mg/dL (8.5-10.1) Total Bilirubin 0.3 mg/dL (0.2-1.0) Aspartate Amino Transf (AST/SGOT) 56 U/L (15-37) Alanine Aminotransferase (ALT/SGPT) 47 U/L (14-59) Alkaline Phosphatase 57 U/L (46-116) Total Protein 7.0 g/dL (6.4-8.2) Albumin 3.1 g/dL (3.4-5.0) Albumin/Globulin Ratio 0.8 (1.0-1.7) Triglycerides Level 295 mg/dL (0-150) Cholesterol Level 182 mg/dL (0-200) LDL Cholesterol, Calculated 88 mg/dL (0-100) VLDL Cholesterol, Calculated 59 mg/dL (0-40) Non-HDL Cholesterol Calculated 147 mg/dL (0-129) HDL Cholesterol 35 mg/dL (40-60) Cholesterol/HDL Ratio 5.2 Glucose (Fingerstick) 169 mg/dL (70-99) 166 mg/dL (70-99) 150 mg/dL (70-99) Test 09/27/18 20:23 09/28/18 03:40 09/28/18 03:44 09/28/18 07:14 Glucose (Fingerstick) 85 mg/dL (70-99) 121 mg/dL (70-99) 125 mg/dL (70-99) White Blood Count 5.5 x10^3/uL (4.0-11.0) Red Blood Count 4.52 x10^6/uL (3.50-5.40) Hemoglobin 13.1 g/dL (12.0-15.5) Hematocrit 40.7 % (36.0-47.0) Mean Corpuscular Volume 90 fL (79-100) Mean Corpuscular Hemoglobin 29 pg (25-35) Mean Corpuscular Hemoglobin Concent 32 g/dL (31-37) Red Cell Distribution Width 14.3 % (11.5-14.5) Platelet Count 133 x10^3/uL (140-400) Neutrophils (%) (Auto) 57 % (31-73) Lymphocytes (%) (Auto) 31 % (24-48) Monocytes (%) (Auto) 8 % (0-9) Eosinophils (%) (Auto) 4 % (0-3) Basophils (%) (Auto) 1 % (0-3) Neutrophils # (Auto) 3.1 x10^3uL (1.8-7.7) Lymphocytes # (Auto) 1.7 x10^3/uL (1.0-4.8) Monocytes # (Auto) 0.5 x10^3/uL (0.0-1.1) Eosinophils # (Auto) 0.2 x10^3/uL (0.0-0.7) Basophils # (Auto) 0.0 x10^3/uL (0.0-0.2) Sodium Level 142 mmol/L (136-145) Potassium Level 3.3 mmol/L (3.5-5.1) Chloride Level 103 mmol/L (98-107) Carbon Dioxide Level 30 mmol/L (21-32) Anion Gap 9 (6-14) Blood Urea Nitrogen 13 mg/dL (7-20) Creatinine 1.1 mg/dL (0.6-1.0) Estimated GFR (Cockcroft-Gault) 49.4 BUN/Creatinine Ratio 12 (6-20) Glucose Level 132 mg/dL (70-99) Calcium Level 9.6 mg/dL (8.5-10.1) Total Bilirubin 0.4 mg/dL (0.2-1.0) Aspartate Amino Transf (AST/SGOT) 70 U/L (15-37) Alanine Aminotransferase (ALT/SGPT) 53 U/L (14-59) Alkaline Phosphatase 59 U/L (46-116) Total Protein 7.1 g/dL (6.4-8.2) Albumin 3.1 g/dL (3.4-5.0) Albumin/Globulin Ratio 0.8 (1.0-1.7) Laboratory Tests Test 09/27/18 12:17 09/27/18 17:13 09/27/18 20:23 09/28/18 03:40 Glucose (Fingerstick) 166 mg/dL (70-99) 150 mg/dL (70-99) 85 mg/dL (70-99) White Blood Count 5.5 x10^3/uL (4.0-11.0) Red Blood Count 4.52 x10^6/uL (3.50-5.40) Hemoglobin 13.1 g/dL (12.0-15.5) Hematocrit 40.7 % (36.0-47.0) Mean Corpuscular Volume 90 fL (79-100) Mean Corpuscular Hemoglobin 29 pg (25-35) Mean Corpuscular Hemoglobin Concent 32 g/dL (31-37) Red Cell Distribution Width 14.3 % (11.5-14.5) Platelet Count 133 x10^3/uL (140-400) Neutrophils (%) (Auto) 57 % (31-73) Lymphocytes (%) (Auto) 31 % (24-48) Monocytes (%) (Auto) 8 % (0-9) Eosinophils (%) (Auto) 4 % (0-3) Basophils (%) (Auto) 1 % (0-3) Neutrophils # (Auto) 3.1 x10^3uL (1.8-7.7) Lymphocytes # (Auto) 1.7 x10^3/uL (1.0-4.8) Monocytes # (Auto) 0.5 x10^3/uL (0.0-1.1) Eosinophils # (Auto) 0.2 x10^3/uL (0.0-0.7) Basophils # (Auto) 0.0 x10^3/uL (0.0-0.2) Sodium Level 142 mmol/L (136-145) Potassium Level 3.3 mmol/L (3.5-5.1) Chloride Level 103 mmol/L (98-107) Carbon Dioxide Level 30 mmol/L (21-32) Anion Gap 9 (6-14) Blood Urea Nitrogen 13 mg/dL (7-20) Creatinine 1.1 mg/dL (0.6-1.0) Estimated GFR (Cockcroft-Gault) 49.4 BUN/Creatinine Ratio 12 (6-20) Glucose Level 132 mg/dL (70-99) Calcium Level 9.6 mg/dL (8.5-10.1) Total Bilirubin 0.4 mg/dL (0.2-1.0) Aspartate Amino Transf (AST/SGOT) 70 U/L (15-37) Alanine Aminotransferase (ALT/SGPT) 53 U/L (14-59) Alkaline Phosphatase 59 U/L (46-116) Total Protein 7.1 g/dL (6.4-8.2) Albumin 3.1 g/dL (3.4-5.0) Albumin/Globulin Ratio 0.8 (1.0-1.7) Test 09/28/18 03:44 09/28/18 07:14 Glucose (Fingerstick) 121 mg/dL (70-99) 125 mg/dL (70-99) Microbiology 09/25/18 Urine Culture - Preliminary, Resulted 09/25/18 Urine Culture Result 1 (QUIQUE) - Preliminary, Resulted Medications Current Medications Metoprolol Tartrate (Lopressor Vial) 5 mg 1X ONCE IVP Last administered on at 23:32; Start 09/25/18 at 23:15; Stop 09/25/18 at 23:16; Status DC Fentanyl Citrate (Fentanyl 2ml Vial) 50 mcg 1X ONCE IV Last administered on at 00:01; Start 09/26/18 at 00:00; Stop 09/26/18 at 00:01; Status DC Hydralazine HCl (Apresoline Inj) 10 mg 1X ONCE IVP Last administered on at 00:35; Start 09/26/18 at 00:30; Stop 09/26/18 at 00:31; Status DC Insulin Human Regular (HumuLIN R VIAL) 6 unit 1X ONCE IV Last administered on 09/26/18at 02:20; Start 09/26/18 at 01:45; Stop 09/26/18 at 01:46; Status DC Ondansetron HCl (Zofran) 4 mg PRN Q8HRS PRN IV NAUSEA/VOMITING; Start 09/26/18 at 01:45; Stop 09/27/18 at 01:44; Status DC Fentanyl Citrate (Fentanyl 2ml Vial) 50 mcg PRN Q1HR PRN IV PAIN Last administered on 09/27/18at 00:02; Start 09/26/18 at 01:45; Stop 09/27/18 at 01:44 ; Status DC Acetaminophen (Tylenol) 650 mg PRN Q4HRS PRN PO FEVER; Start 09/26/18 at 01:45 ; Stop 09/27/18 at 01:44; Status DC Nitroglycerin (Nitrostat) 0.4 mg PRN Q5MIN PRN SL CHEST PAIN; Start 09/26/18 at 01:45; Stop 09/27/18 at 01:44; Status DC Insulin Human Lispro (HumaLOG) 0-7 UNITS TIDWMEALS SQ Last administered on 09/26at 12:18; Start 09/26/18 at 08:00; Stop 09/26/18 at 17:12; Status DC Dextrose (Dextrose 50%-Water Syringe) 12.5 gm PRN Q15MIN PRN IV SEE COMMENTS; Start 09/26/18 at 01:45 Ceftriaxone Sodium (Rocephin) 1 gm 1X ONCE IVP Last administered on 09/26/18at 02:20; Start 09/26/18 at 01:45; Stop 09/26/18 at 01:46; Status DC Clonidine HCl (Catapres) 0.1 mg PRN Q8HRS PRN PO HYPERTENSION, SEE COMMENTS Last administered on 09/26/18at 15:23; Start 09/26/18 at 01:45 Labetalol HCl (Normodyne Iv Push) 20 mg 1X ONCE IVP Last administered on 03:59; Start 09/26/18 at 03:30; Stop 09/26/18 at 03:32; Status DC Diphenhydramine HCl (Benadryl) 25 mg PRN Q6HRS PRN PO ITCHING Last administered on 09/26/18 04:31; Start 09/26/18 at 04:30 Levofloxacin/ Dextrose 150 ml @ 100 mls/hr Q24H IV ; Start 09/27/18 at 06:00; Stop 09/27/18 at 06:00; Status DC Levofloxacin/ Dextrose 100 ml @ 100 mls/hr Q24H IV Last administered on at 05:58; Start 09/27/18 at 06:00; Stop 09/27/18 at 19:53; Status DC Aspirin (Robert Aspirin) 325 mg DAILY PO Last administered on 09/28/18 08:42; Start 09/26/18 at 12:00 Metoprolol Succinate (Toprol Xl) 100 mg DAILY PO Last administered on 12:06; Start 09/26/18 at 12:00; Stop 09/26/18 at 18:29; Status DC Pantoprazole Sodium (Protonix) 40 mg DAILYAC PO Last administered on 09/28/18 05:40; Start 09/26/18 at 12:00 Trazodone HCl (Desyrel) 50 mg QHS PO Last administered on 09/27/18 20:31; Start 09/26/18 at 21:00 Trazodone HCl (Desyrel) 100 mg QHS PO ; Start 09/26/18 at 21:00 Citalopram Hydrobromide (CeleXA) 10 mg DAILY PO Last administered on 09/28/18 08:43; Start 09/26/18 at 12:00 Insulin Human Lispro (HumaLOG) 24 units TIDWMEALS SQ Last administered on 17:46; Start 09/26/18 at 12:00 Insulin Glargine (Lantus) 74 units QHS SQ Last administered on 09/27/18 20:40 ; Start 09/26/18 at 21:00 Levothyroxine Sodium (Synthroid) 250 mcg DAILY06 PO Last administered on 12:06; Start 09/26/18 at 12:00; Stop 09/26/18 at 17:02; Status DC Losartan Potassium (Cozaar) 100 mg DAILY PO Last administered on 09/28/18at 08: 43; Start 09/26/18 at 12:00 Atorvastatin Calcium (Lipitor) 80 mg QHS PO Last administered on 09/27/18at 20: 31; Start 09/26/18 at 21:00 Non-Formulary Medication (Semaglutide (Ozempic)) 0.5 mg QFR SQ ; Start 09/28/18 at 16:00; Status UNV Hydrochlorothiazide (Microzide) 12.5 mg DAILY PO Last administered on 08:42; Start 09/26/18 at 12:00; Stop 09/27/18 at 10:12; Status DC Iohexol (Omnipaque 350 Mg/ml) 80 ml 1X ONCE IV Last administered on 09/26/18at 13:15; Start 09/26/18 at 13:15; Stop 09/26/18 at 13:16; Status DC Info (CONTRAST GIVEN -- Rx MONITORING) 1 each PRN DAILY PRN MC SEE COMMENTS; Start 09/26/18 at 13:15; Stop 09/28/18 at 13:14 Magnesium Oxide (Magnesium Oxide) 400 mg 1X ONCE PO Last administered on at 15:23; Start 09/26/18 at 15:00; Stop 09/26/18 at 15:01; Status DC Lactobacillus Rhamnosus (Culturelle) 1 cap BID PO Last administered on 08:43; Start 09/26/18 at 21:00 Hydralazine HCl (Apresoline Inj) 10 mg PRN Q4HRS PRN IVP ELEVATED BP, SEE COMMENTS Last administered on 09/27/18at 23:59; Start 09/26/18 at 16:45 Insulin Glargine (Lantus) 10 units QHS SQ ; Start 09/26/18 at 21:00; Status UNV Insulin Human Lispro (HumaLOG) 0-5 UNITS TIDWMEALS SQ Last administered on 09/27at 12:33; Start 09/26/18 at 17:00 Dextrose (Dextrose 50%-Water Syringe) 12.5 gm PRN Q15MIN PRN IV SEE COMMENTS; Start 09/26/18 at 16:45; Status UNV Levothyroxine Sodium (Synthroid) 100 mcg ONCE ONCE PO Last administered on 17:46; Start 09/26/18 at 17:30; Stop 09/26/18 at 17:31; Status DC Enoxaparin Sodium (Lovenox 40mg Syringe) 40 mg Q24H SQ Last administered on 17:46; Start 09/26/18 at 17:00; Stop 09/27/18 at 08:33; Status DC Levothyroxine Sodium (Synthroid) 350 mcg DAILY06 PO Last administered on 05:40; Start 09/27/18 at 06:00 Carvedilol (Coreg) 12.5 mg BIDWMEALS PO Last administered on 09/28/18 08:44; Start 09/26/18 at 18:30 Enoxaparin Sodium (Lovenox 60mg Syringe) 60 mg Q12HR SQ Last administered on 20:32; Start 09/27/18 at 09:00 Chlorthalidone (Thalitone) 25 mg DAILY PO Last administered on 09/28/18 08:42 ; Start 09/27/18 at 11:00 Fentanyl Citrate (Fentanyl 2ml Vial) 50 mcg PRN Q2HR PRN IV PAIN SEVERE Last administered on 09/27/18 18:29; Start 09/27/18 at 10:45 Fentanyl Citrate (Fentanyl 2ml Vial) 25 mcg PRN Q2HR PRN IV PAIN MODERATE Last administered on 09/27/18 13:27; Start 09/27/18 at 10:45 Acetaminophen (Tylenol) 650 mg PRN Q6HRS PRN PO PAIN; Start 09/27/18 at 11:00 Potassium Chloride (Klor-Con) 40 meq 1X ONCE PO Last administered on 16:02; Start 09/27/18 at 15:00; Stop 09/27/18 at 15:01; Status DC Potassium Chloride (Klor-Con) 20 meq DAILYWBKFT PO Last administered on 08:42; Start 09/28/18 at 08:00 Lidocaine (Lidoderm) 1 patch DAILY TD Last administered on 3/28/19at 16:02; Start 09/27/18 at 15:00 Miscellaneous (Lidoderm Patch Removal) 1 ea QHS MC Last administered on at 00:08; Start 09/27/18 at 21:00 Amlodipine Besylate (Norvasc) 5 mg 1X ONCE PO ; Start 09/27/18 at 15:30; Stop 09/27/18 at 15:31; Status DC Amlodipine Besylate (Norvasc) 10 mg DAILY PO Last administered on 09/28/18at 08: 43; Start 09/28/18 at 09:00 Methylprednisolone Acetate (DEPO-Medrol 40MG VIAL) 40 mg 1X ONCE IM ; Start at 17:45; Stop 09/27/18 at 17:46; Status DC Methylprednisolone Acetate (DEPO-Medrol 40MG VIAL) 40 mg 1X ONCE IM ; Start at 17:45; Stop 09/27/18 at 17:46; Status DC Bupivacaine HCl (Sensorcaine-Mpf 0.25%) 10 ml 1X ONCE IJ ; Start 09/27/18 at 17 :45; Stop 09/27/18 at 17:46; Status DC Diclofenac Sodium (Voltaren) 1 clayton BID TP Last administered on 09/27/18at 21:33 ; Start 09/27/18 at 21:00 Piperacillin Sod/ Tazobactam Sod (Zosyn Per Pharmacy) 1 each PRN DAILY PRN MC SEE COMMENTS; Start 09/27/18 at 19:15 Piperacillin Sod/ Tazobactam Sod 3.375 gm/Sodium Chloride 50 ml @ 100 mls/hr Q6HRS IV Last administered on 09/28/18at 05:40; Start 09/28/18 at 00:00 Active Scripts Active Reported Tresiba Flextouch U-200 (Insulin Degludec) 200 Unit/1 Ml Insuln.pen 64 Unit SQ QHS Ozempic (Semaglutide) 0.25 Mg/0.2 Ml Pen.injctr 0.5 Mg SQ QFR Novolog Flexpen (Insulin Aspart) 100 Unit/1 Ml Insuln.pen 24 Unit SQ TIDWMEALS Levothyroxine Sodium 125 Mcg Tablet 250 Mcg PO DAILYAC Trazodone Hcl 100 Mg Tablet 1 Tab PO QHS Trazodone Hcl 50 Mg Tablet 1 Tab PO QHS Protonix (Pantoprazole Sodium) 40 Mg Tablet.dr 1 Tab PO DAILY Crestor (Rosuvastatin Calcium) 20 Mg Tablet 20 Mg PO HS Aspirin 325 Mg Tablet 1 Tab PO DAILY Losartan-Hctz 100-12.5 Mg Tab (Losartan/Hydrochlorothiazide) 1 Each Tablet 1 Tab PO DAILY Metoprolol Succinate ( Xl ) (Metoprolol Succinate) 100 Mg Tab.er.24h 100 Mg Escitalopram Oxalate 10 Mg Tablet 20 Mg PO DAILY Vitals/I & O Vital Sign - Last 24 Hours 09/27/18 09/27/18 09/27/18 09/27/18 11:00 15:30 15:58 17:43 Temp 98.0 97.7 98.0 97.7 Pulse 58 57 56 57 Resp 20 20 B/P (MAP) 158/70 (99) 123/59 123/59 (80) 183/84 Pulse Ox 93 90 O2 Delivery Room Air Room Air 09/27/18 09/27/18 09/27/18 09/27/18 18:59 19:00 20:00 23:40 Temp 97.5 97.8 97.5 97.8 Pulse 53 55 Resp 16 18 20 B/P (MAP) 139/62 (87) 182/79 (113) Pulse Ox 96 96 98 O2 Delivery Room Air Nasal Cannula Room Air BiPAP/CPAP O2 Flow Rate 2.0 09/27/18 09/28/18 09/28/18 09/28/18 23:59 00:36 03:30 07:00 Temp 97.5 98.0 97.5 98.0 Pulse 55 60 55 60 Resp 18 18 18 B/P (MAP) 182/79 153/68 (96) 164/68 (100) 150/65 (93) Pulse Ox 98 95 O2 Delivery BiPAP/CPAP BiPAP/CPAP 09/28/18 09/28/18 09/28/18 08:43 08:43 08:44 Pulse 61 56 61 B/P (MAP) 165/70 165/70 165/70 Intake and Output 09/27/18 09/27/18 09/28/18 15:00 23:00 07:00 Intake Total 400 ml 300 ml Balance 400 ml 300 ml MARYLIN CERVANTES MD Sep 28, 2018 08:53
--- NOTE | 2018-09-28 09:04 | PDOC ---
Infectious Disease Note Subjective: Subjective Pt says continues to have flank pain NO f/c/n/v/d ROS: ROS Negative except for above. 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 Derm : fading generalized rash, no open wounds Medications: Inpatient Meds: Current Medications Medications (Trade) Dose Ordered Sig/Nader Start Time Stop Time Status Last Admin Dose Admin Acetaminophen (Tylenol) 650 mg PRN Q6HRS PRN 09/27/18 11:00 Amlodipine Besylate (Norvasc) 10 mg DAILY 09/28/18 09:00 09/28/18 08:43 10 MG Aspirin (Robert Aspirin) 325 mg DAILY 09/26/18 12:00 09/28/18 08:42 325 MG Atorvastatin Calcium (Lipitor) 80 mg QHS 09/26/18 21:00 09/27/18 20:31 80 MG Bupivacaine HCl (Sensorcaine-Mpf 0.25%) 10 ml 1X ONCE 09/27/18 17:45 09/27/18 17:46 DC Carvedilol (Coreg) 12.5 mg BIDWMEALS 09/26/18 18:30 09/28/18 08:44 12.5 MG Ceftriaxone Sodium (Rocephin) 1 gm 1X ONCE 09/26/18 01:45 09/26/18 01:46 DC 09/26/18 02:20 1 GM Chlorthalidone (Thalitone) 25 mg DAILY 09/27/18 11:00 09/28/18 08:42 25 MG Citalopram Hydrobromide (CeleXA) 10 mg DAILY 09/26/18 12:00 09/28/18 08:43 10 MG Clonidine HCl (Catapres) 0.1 mg PRN Q8HRS PRN 09/26/18 01:45 09/26/18 15:23 0.1 MG Dextrose (Dextrose 50%-Water Syringe) 12.5 gm PRN Q15MIN PRN 09/26/18 16:45 UNV Diclofenac Sodium (Voltaren) 1 clayton BID 09/27/18 21:00 09/27/18 21:33 1 [place] Diphenhydramine HCl (Benadryl) 25 mg PRN Q6HRS PRN 09/26/18 04:30 09/26/18 04:31 25 MG Enoxaparin Sodium (Lovenox 40mg Syringe) 40 mg Q24H 09/26/18 17:00 09/27/18 08:33 DC 09/26/18 17:46 40 MG Enoxaparin Sodium (Lovenox 60mg Syringe) 60 mg Q12HR 09/27/18 09:00 09/28/18 08:51 60 MG Fentanyl Citrate (Fentanyl 2ml Vial) 25 mcg PRN Q2HR PRN 09/27/18 10:45 09/27/18 13:27 25 MCG Hydralazine HCl (Apresoline Inj) 10 mg PRN Q4HRS PRN 09/26/18 16:45 09/27/18 23:59 10 MG Hydrochlorothiazide (Microzide) 12.5 mg DAILY 09/26/18 12:00 09/27/18 10:12 DC 09/27/18 08:42 12.5 MG Info (CONTRAST GIVEN -- Rx MONITORING) 1 each PRN DAILY PRN 09/26/18 13:15 09/28/18 13:14 Insulin Glargine (Lantus) 10 units QHS 09/26/18 21:00 UNV Insulin Human Lispro (HumaLOG) 0-5 UNITS TIDWMEALS 09/26/18 17:00 09/27/18 12:33 2 UNITS Insulin Human Regular (HumuLIN R VIAL) 6 unit 1X ONCE 09/26/18 01:45 09/26/18 01:46 DC 09/26/18 02:20 6 UNIT Iohexol (Omnipaque 350 Mg/ml) 80 ml 1X ONCE 09/26/18 13:15 09/26/18 13:16 DC 09/26/18 13:15 80 ML Labetalol HCl (Normodyne Iv Push) 20 mg 1X ONCE 09/26/18 03:30 09/26/18 03:32 DC 09/26/18 03:59 20 MG Lactobacillus Rhamnosus (Culturelle) 1 cap BID 09/26/18 21:00 09/28/18 08:43 1 CAP Levofloxacin/ Dextrose 100 ml @ 100 mls/hr Q24H 09/27/18 06:00 09/27/18 19:53 DC 09/27/18 05:58 100 MLS/HR Levothyroxine Sodium (Synthroid) 350 mcg DAILY06 09/27/18 06:00 09/28/18 05:40 350 MCG Lidocaine (Lidoderm) 1 patch DAILY 09/27/18 15:00 09/28/18 08:52 1 PATCH Losartan Potassium (Cozaar) 100 mg DAILY 09/26/18 12:00 09/28/18 08:43 100 MG Magnesium Oxide (Magnesium Oxide) 400 mg 1X ONCE 09/26/18 15:00 09/26/18 15:01 DC 09/26/18 15:23 400 MG Methylprednisolone Acetate (DEPO-Medrol 40MG VIAL) 40 mg 1X ONCE 09/27/18 17:45 09/27/18 17:46 DC Metoprolol Succinate (Toprol Xl) 100 mg DAILY 09/26/18 12:00 09/26/18 18:29 DC 09/26/18 12:06 100 MG Metoprolol Tartrate (Lopressor Vial) 5 mg 1X ONCE 09/25/18 23:15 09/25/18 23:16 DC 09/25/18 23:32 5 MG Miscellaneous (Lidoderm Patch Removal) 1 ea QHS 09/27/18 21:00 09/28/18 00:08 1 EA Nitroglycerin (Nitrostat) 0.4 mg PRN Q5MIN PRN 09/26/18 01:45 09/27/18 01:44 DC Non-Formulary Medication (Semaglutide (Ozempic)) 0.5 mg QFR 09/28/18 16:00 UNV Ondansetron HCl (Zofran) 4 mg PRN Q8HRS PRN 09/26/18 01:45 09/27/18 01:44 DC Pantoprazole Sodium (Protonix) 40 mg DAILYAC 09/26/18 12:00 09/28/18 05:40 40 MG Piperacillin Sod/ Tazobactam Sod (Zosyn Per Pharmacy) 1 each PRN DAILY PRN 09/27/18 19:15 Piperacillin Sod/ Tazobactam Sod 3.375 gm/Sodium Chloride 50 ml @ 100 mls/hr Q6HRS 09/28/18 00:00 09/28/18 05:40 100 MLS/HR Potassium Chloride (Klor-Con) 20 meq DAILYWBKFT 09/28/18 08:00 09/28/18 08:42 20 MEQ Trazodone HCl (Desyrel) 100 mg QHS 09/26/18 21:00 Labs: Lab Laboratory Tests Test 09/27/18 12:17 09/27/18 17:13 09/27/18 20:23 09/28/18 03:40 Glucose (Fingerstick) 166 mg/dL (70-99) 150 mg/dL (70-99) 85 mg/dL (70-99) White Blood Count 5.5 x10^3/uL (4.0-11.0) Red Blood Count 4.52 x10^6/uL (3.50-5.40) Hemoglobin 13.1 g/dL (12.0-15.5) Hematocrit 40.7 % (36.0-47.0) Mean Corpuscular Volume 90 fL (79-100) Mean Corpuscular Hemoglobin 29 pg (25-35) Mean Corpuscular Hemoglobin Concent 32 g/dL (31-37) Red Cell Distribution Width 14.3 % (11.5-14.5) Platelet Count 133 x10^3/uL (140-400) Neutrophils (%) (Auto) 57 % (31-73) Lymphocytes (%) (Auto) 31 % (24-48) Monocytes (%) (Auto) 8 % (0-9) Eosinophils (%) (Auto) 4 % (0-3) Basophils (%) (Auto) 1 % (0-3) Neutrophils # (Auto) 3.1 x10^3uL (1.8-7.7) Lymphocytes # (Auto) 1.7 x10^3/uL (1.0-4.8) Monocytes # (Auto) 0.5 x10^3/uL (0.0-1.1) Eosinophils # (Auto) 0.2 x10^3/uL (0.0-0.7) Basophils # (Auto) 0.0 x10^3/uL (0.0-0.2) Sodium Level 142 mmol/L (136-145) Potassium Level 3.3 mmol/L (3.5-5.1) Chloride Level 103 mmol/L (98-107) Carbon Dioxide Level 30 mmol/L (21-32) Anion Gap 9 (6-14) Blood Urea Nitrogen 13 mg/dL (7-20) Creatinine 1.1 mg/dL (0.6-1.0) Estimated GFR (Cockcroft-Gault) 49.4 BUN/Creatinine Ratio 12 (6-20) Glucose Level 132 mg/dL (70-99) Calcium Level 9.6 mg/dL (8.5-10.1) Total Bilirubin 0.4 mg/dL (0.2-1.0) Aspartate Amino Transf (AST/SGOT) 70 U/L (15-37) Alanine Aminotransferase (ALT/SGPT) 53 U/L (14-59) Alkaline Phosphatase 59 U/L (46-116) Total Protein 7.1 g/dL (6.4-8.2) Albumin 3.1 g/dL (3.4-5.0) Albumin/Globulin Ratio 0.8 (1.0-1.7) Test 09/28/18 03:44 09/28/18 07:14 Glucose (Fingerstick) 121 mg/dL (70-99) 125 mg/dL (70-99) Micro RUN DATE: 09/28/18 PAGE 1 RUN TIME: 210 [facility] [address] [place] [address] Fernando Rich M.D., [employer] PATIENT: RUELBENNY ACCT: [id number] LOC: [address] [place] [address] U : [id number] AGE/SX: 68/F ROOM: 203 REG : 09/26/[address]: NIKITA DU MD : 1950 BED: 1 DIS : STATUS: ADM IN TLOC: SPEC #: [id number] FRANCY: 09/25/18 STATUS: RES REQ #: [id number] RECD: 09/25/[address]: SARY CARRENO APRN SOURCE: URINE CC ENTR: 09/25/[address]: MEI MOCK MD [facility]: ORDERED: URINE CULTURE Procedure Result URINE CULTURE Preliminary Preliminary report URINE CULTURE RES 1 Preliminary Gram negative rods 10,000-25,000 colony forming units per mL [facility]formed at: [facility] [place] [place] [address], [place], [place] [id number] Flatbed Owner Operator: VELVET Sweet MD, Phone: [phone] Objective: Assessment: Bilateral flank pain Rt > LT Pyuria, UC GNR ,ID pending Extensive obstructive uropathy from nephrolithiasis Large 3.2 cm in width in rt renal collecting system with chronic inflammation or scarring HTN Urgency resolved Protein calorie malnutrition Atypical Chest pain DM2/HLP Hypothyroidism H/O UTIs in the past Hepatic steatosis Morbid obesity KARENA H/O E coli urosepsis 10/2017 H/O proteus bacteremia 08/2016 Dilated ascending aorta 4.7 cm h/o CVA GERD Cancer (uterine ) Anxiety, Depression Osteoarthritis Tendinitis from ? Levaquin Rash from Ceftriaxone this admission Has tolerated Zosyn well in the past Plan: Plan of Care zosyn\ F/U final UC Until anatomic abnormality is not resolved pt remains at risk of recurrent utis /sepsis due to large rt renal staghorn calculi Urology evaluated pt and she is not a candidate for ESWL or PCNL , will need surgery as outpt Pain management per primary Cont supportive care D/W LAURA ATKINSON MD Sep 28, 2018 09:04
--- NOTE | 2018-09-28 09:27 | CONS ---
DATE OF CONSULTATION: 09/27/2018 LOCATION: She is in room 203. ATTENDING PHYSICIAN: Dr. Katz. The patient was seen at the request of Dr. Katz for rehab evaluation. FAMILY PHYSICIAN: Mei Antunez MD. HISTORY OF PRESENT ILLNESS: This is a 68-year-old female admitted through the Emergency Room on 09/26/2018 with chest pain extending to left upper abdomen. She was seen by Dr. Antunez in July and worked up. The patient is somewhat noncompliant with her blood pressure medication and uses insulin intermittently. The patient had chest discomfort since 06/2018, but getting unbearable. She also admits pain in her hip and lower back area, more so on the left side. The patient was seen in the Emergency Room, was found with acute pyelonephritis. TSH is being very high and glucose uncontrolled. The patient with known hypertension, hyperlipidemia, old cerebrovascular accident without any residual deficits, gastroesophageal reflux disease, carcinoma, anxiety, depression, osteoarthritis, status post right knee arthroscopic surgery for torn meniscus, diabetes mellitus, hypothyroidism, status post hysterectomy. FAMILY HISTORY: Heart disease and hypertension. ALLERGIES: SHE IS KNOWN ALLERGIC TO CEFTRIAXONE, LOVASTATIN, AND MORPHINE. Since admission, she had radiological studies including CTA of the chest, which revealed stable aneurysmal dilatation of ascending aorta, bilateral intrarenal calculi, worse on the right side. CT scan of the abdomen revealed mildly enlarged liver, multiple bilateral nonobstructing renal calculi, the largest is in the interpolar of right kidney, extending to the renal pelvis measuring 3.7 cm, associated inflammatory changes are seen about the right renal pelvis. The patient also had degenerative changes of lumbar spine. The patient lives with her family, had a flight of steps to get into the house. She tried to avoid the stairs. She uses a walker most of the time. The patient admits some numbness in her feet. The patient denies any recent fall. PHYSICAL EXAMINATION: Today revealed an elderly female. She is alert, oriented to time, place, person and circumstance and follows commands appropriately, moves all 4 extremities voluntarily where she had 4+/5 grade muscle strength. Deep tendon reflexes are decreased overall with absent knee and ankle jerks. She had equal perception of touch and pinprick sensation bilaterally. She had tenderness to palpation over sacroiliac joint area and adjoining trochanteric bursa. Straight leg raising test is negative bilaterally. She had painful range of motion on both hip joints. She had crepitus on range of motion of both knee joints with some limitation of right knee joint flexion. The patient is independent with bed mobility and transfers. I have not tested her ambulation skills at this time. ASSESSMENT: An elderly female with chronic lower back pain from degenerative disk disease and degenerative joint disease of lumbar vertebrae without any clinical evidence of ongoing lumbar radiculopathy, bilateral trochanteric bursitis, degenerative joint disease of both knees, diabetes mellitus with peripheral neuropathy. The patient with known hypertension, hyperlipidemia, old cerebrovascular accident, gastroesophageal reflux disease, carcinoma, anxiety, depression, hypothyroidism. RECOMMENDATIONS: To proceed with injecting painful left trochanteric bursa and sacroiliac joint to help ease her pain. Dr. Katz, I appreciate asking me to participate in the care of this interesting patient to consider further injections on the right side and also to her knees on an as needed basis. I will be glad to follow her with you as needed for her rehabilitation. MARYLIN CERVANTES MD DR: VINITA/crys JOB#: [id number] / [id number] MEI Franklin MD
--- NOTE | 2018-09-28 09:36 | NUR ---
SS following up with discharge planning. Disposition continues to remain home. No discharge needs noted at this time. SS will continue to follow for discharge planning.
--- NOTE | 2018-09-28 10:36 | PDOC ---
PROGRESS NOTES History of Present Illness History of Present Illness Assessment/Plan Assessment/Plan IMPRESSION 1. CHEST PAIN 2. SEPSIS SEC TO ACUTE PYELONEPHRITIS several moderate sized calculi in the right renal collecting system and a staghorn-type configuration. The largest of these measures 3.2 cm in width. There is no associated hydronephrosis. There is streaky increased density in the parapelvic fat on the right suggesting chronic inflammation or scarring. There are smaller nonobstructing intrarenal calculi on the left. There is bilateral renal cortical scarring, more so on the right. 3. MORBID OBESITY, EXTREME 4. Stable aneurysmal dilatation of the ascending aorta. There is dilatation of the ascending aorta. It measures 4.7 cm in greatest width on the coronal images. There has been no significant change since 02/06/2017. 5. Bilateral intrarenal calculi, worse on the right. 6. UNTREATED HYPOTHYROID STATE 7. Metabolic syndrome 8. UNCONTROLLED DIABETES 9. several large stones that will require either staged ureteroscopy or percutaneous approach. PLAN BLOOD AND URINE CULTURES EMPERIC IV ANTIBIOTICS CARDIOLOGY CONSULT REVIEWED ECHO UROLOGY FOLLOWING RE STAGHORN RENAL CALCULUS synthroid 100mcg po daily weight loss needed Lantus 10units sq q hs SS INSULIN DVT PROPHYLAXIS LEFT LOWER BACK PAIN proceed with injecting painful left trochanteric bursa and sacroiliac joint to help ease her pain. pt/ot may need extensive rx of stone at [facility] IN NEAR FUTURE 43 MIN PT EXAM, CHART REVIEW, > 50% TIME SPENT WITH PT EXAM, CHART REVIEW, PT CARE COORDINATION Vitals Vitals Vital Signs Date Time Temp Pulse Resp B/P (MAP) Pulse Ox O2 Delivery O2 Flow Rate FiO2 09/28/18 08:44 61 165/70 09/28/18 07:00 98.0 18 95 BiPAP/CPAP 98.0 09/27/18 19:00 2.0 Physical Exam Physical Exam General: Pleasant, cooperative female in nad, HEENT: anicteric, no thrush, Neck: supple no JVD Lungs : clear bilaterally, decreased bs at bases Heart : Regular rate and rhythm, No murmurs Abdomen: nontender, nondistended, obese, rt flank pain radiating to the back, lt rib cage pain NOT IMPROVED Ext : NO edema , no cyanosis [employer] grossly nonfocal AxOx3 Psych: normal mood, affect. Derm : fading generalized rash, no open wounds General: Alert, Oriented X3, Cooperative, No acute distress, mild distress Heart: Regular rate (SR), Normal S1, Normal S2, Other (2/6 systolic murmur to LLS border) Lungs: Clear Abdomen: Normal bowel sounds, Soft, No hepatosplenomegaly Extremities: No cyanosis, Other (trace to 1+ pitting leg edema) Skin: No breakdown, No significant lesion Labs LABS REASON: chest pain, aneurysm PROCEDURE: CT ANGIO CHEST ABD PELVIS CTA of the chest, abdomen and pelvis with contrast, 09/26/2018: HISTORY: Follow-up thoracic aortic aneurysm Multidetector CT imaging was performed following an IV bolus injection of iodinated contrast material. Multiplanar reconstructions were produced including 3-D volume rendered reconstructions of the major arteries. There is dilatation of the ascending aorta. It measures 4.7 cm in greatest width on the coronal images. There has been no significant change since 02/06/2017. Pulsation type artifacts are seen near the aortic root. There is no evidence of aortic dissection. The origins of the cervicocephalic arteries from the aortic arch are widely patent. At the mid aortic arch level the aorta measures approximately 3.5 cm. It measures approximately 2.6 cm in width at the descending thoracic aortic level. There are mild scattered atherosclerotic plaques in the thoracic aorta. There is more extensive atherosclerotic plaquing of the abdominal aorta without evidence of aneurysm or high-grade stenosis. The celiac and superior mesenteric artery origins are widely patent. There is mild calcific plaquing at the origins of both renal arteries without evidence of high-grade stenosis. A patent inferior mesenteric artery is evident. There is mild calcific plaquing in the common iliac, external iliac and common femoral arteries bilaterally without evidence of high-grade stenosis. Incidental CT findings include the presence of several moderate sized calculi in the right renal collecting system and a staghorn-type configuration. The largest of these measures 3.2 cm in width. There is no associated hydronephrosis. There is streaky increased density in the parapelvic fat on the right suggesting chronic inflammation or scarring. There are smaller nonobstructing intrarenal calculi on the left. There is bilateral renal cortical scarring, more so on the right. Mild left adrenal nodularity is stable. Moderate multilevel degenerative changes are present in the spine. IMPRESSION: 1. Stable aneurysmal dilatation of the ascending aorta. 2. Bilateral intrarenal calculi, worse on the right. PQRS Compliance Statement: One or more of the following individualized dose reduction techniques were utilized for this examination: 1. Automated exposure control 2. Adjustment of the mA and/or kV according to patient size 3. Use of iterative reconstruction technique Electronically signed by: Dwain Patel MD (09/26/2018 2:45 PM) [facility] SPEC #: [id number] FRANCY: 09/25/18 STATUS: RES REQ #: [id number] RECD: 09/25/[address] [facility] [address]: SARY CARRENO APRN SOURCE: URINE CC ENTR: 09/25/[address] [facility] [address]: MEI MOCK MD [facility]: ORDERED: URINE CULTURE Procedure Result URINE CULTURE Preliminary Preliminary report URINE CULTURE RES 1 Preliminary Gram negative rods 10,000-25,000 colony forming units per mL Performed at: DA - [facility] [place] [id number] [facility] [address], [place], [place] [id number] Coring Machine Operator: VELVET Sweet MD, Phone: [phone] Laboratory Tests Test 09/27/18 12:17 09/27/18 17:13 09/27/18 20:23 09/28/18 03:40 Glucose (Fingerstick) 166 mg/dL (70-99) 150 mg/dL (70-99) 85 mg/dL (70-99) White Blood Count 5.5 x10^3/uL (4.0-11.0) Red Blood Count 4.52 x10^6/uL (3.50-5.40) Hemoglobin 13.1 g/dL (12.0-15.5) Hematocrit 40.7 % (36.0-47.0) Mean Corpuscular Volume 90 fL (79-100) Mean Corpuscular Hemoglobin 29 pg (25-35) Mean Corpuscular Hemoglobin Concent 32 g/dL (31-37) Red Cell Distribution Width 14.3 % (11.5-14.5) Platelet Count 133 x10^3/uL (140-400) Neutrophils (%) (Auto) 57 % (31-73) Lymphocytes (%) (Auto) 31 % (24-48) Monocytes (%) (Auto) 8 % (0-9) Eosinophils (%) (Auto) 4 % (0-3) Basophils (%) (Auto) 1 % (0-3) Neutrophils # (Auto) 3.1 x10^3uL (1.8-7.7) Lymphocytes # (Auto) 1.7 x10^3/uL (1.0-4.8) Monocytes # (Auto) 0.5 x10^3/uL (0.0-1.1) Eosinophils # (Auto) 0.2 x10^3/uL (0.0-0.7) Basophils # (Auto) 0.0 x10^3/uL (0.0-0.2) Sodium Level 142 mmol/L (136-145) Potassium Level 3.3 mmol/L (3.5-5.1) Chloride Level 103 mmol/L (98-107) Carbon Dioxide Level 30 mmol/L (21-32) Anion Gap 9 (6-14) Blood Urea Nitrogen 13 mg/dL (7-20) Creatinine 1.1 mg/dL (0.6-1.0) Estimated GFR (Cockcroft-Gault) 49.4 BUN/Creatinine Ratio 12 (6-20) Glucose Level 132 mg/dL (70-99) Calcium Level 9.6 mg/dL (8.5-10.1) Total Bilirubin 0.4 mg/dL (0.2-1.0) Aspartate Amino Transf (AST/SGOT) 70 U/L (15-37) Alanine Aminotransferase (ALT/SGPT) 53 U/L (14-59) Alkaline Phosphatase 59 U/L (46-116) Total Protein 7.1 g/dL (6.4-8.2) Albumin 3.1 g/dL (3.4-5.0) Albumin/Globulin Ratio 0.8 (1.0-1.7) Test 09/28/18 03:44 09/28/18 07:14 Glucose (Fingerstick) 121 mg/dL (70-99) 125 mg/dL (70-99) Assessment and Plan Assessmemt and Plan Problems Medical Problems: (1) Accelerated hypertension Status: Acute (2) Chest pain Status: Acute (3) Hyperglycemia Status: Acute (4) Pyelonephritis Status: Acute Comment Review of Relevant I have reviewed the following items jeffrey (where applicable) has been applied. Labs Laboratory Tests Test 09/26/18 12:14 09/26/18 17:10 09/26/18 20:30 09/27/18 02:34 Glucose (Fingerstick) 216 mg/dL (70-99) 169 mg/dL (70-99) 129 mg/dL (70-99) 136 mg/dL (70-99) Test 09/27/18 03:20 09/27/18 08:02 09/27/18 12:17 09/27/18 17:13 White Blood Count 6.1 x10^3/uL (4.0-11.0) Red Blood Count 4.37 x10^6/uL (3.50-5.40) Hemoglobin 12.7 g/dL (12.0-15.5) Hematocrit 39.2 % (36.0-47.0) Mean Corpuscular Volume 90 fL (79-100) Mean Corpuscular Hemoglobin 29 pg (25-35) Mean Corpuscular Hemoglobin Concent 33 g/dL (31-37) Red Cell Distribution Width 13.8 % (11.5-14.5) Platelet Count 133 x10^3/uL (140-400) Neutrophils (%) (Auto) 63 % (31-73) Lymphocytes (%) (Auto) 25 % (24-48) Monocytes (%) (Auto) 8 % (0-9) Eosinophils (%) (Auto) 4 % (0-3) Basophils (%) (Auto) 1 % (0-3) Neutrophils # (Auto) 3.8 x10^3uL (1.8-7.7) Lymphocytes # (Auto) 1.5 x10^3/uL (1.0-4.8) Monocytes # (Auto) 0.5 x10^3/uL (0.0-1.1) Eosinophils # (Auto) 0.2 x10^3/uL (0.0-0.7) Basophils # (Auto) 0.0 x10^3/uL (0.0-0.2) Sodium Level 140 mmol/L (136-145) Potassium Level 3.2 mmol/L (3.5-5.1) Chloride Level 101 mmol/L (98-107) Carbon Dioxide Level 31 mmol/L (21-32) Anion Gap 8 (6-14) Blood Urea Nitrogen 13 mg/dL (7-20) Creatinine 0.9 mg/dL (0.6-1.0) Estimated GFR (Cockcroft-Gault) 62.3 BUN/Creatinine Ratio 14 (6-20) Glucose Level 150 mg/dL (70-99) Calcium Level 9.2 mg/dL (8.5-10.1) Total Bilirubin 0.3 mg/dL (0.2-1.0) Aspartate Amino Transf (AST/SGOT) 56 U/L (15-37) Alanine Aminotransferase (ALT/SGPT) 47 U/L (14-59) Alkaline Phosphatase 57 U/L (46-116) Total Protein 7.0 g/dL (6.4-8.2) Albumin 3.1 g/dL (3.4-5.0) Albumin/Globulin Ratio 0.8 (1.0-1.7) Triglycerides Level 295 mg/dL (0-150) Cholesterol Level 182 mg/dL (0-200) LDL Cholesterol, Calculated 88 mg/dL (0-100) VLDL Cholesterol, Calculated 59 mg/dL (0-40) Non-HDL Cholesterol Calculated 147 mg/dL (0-129) HDL Cholesterol 35 mg/dL (40-60) Cholesterol/HDL Ratio 5.2 Glucose (Fingerstick) 169 mg/dL (70-99) 166 mg/dL (70-99) 150 mg/dL (70-99) Test 09/27/18 20:23 09/28/18 03:40 09/28/18 03:44 09/28/18 07:14 Glucose (Fingerstick) 85 mg/dL (70-99) 121 mg/dL (70-99) 125 mg/dL (70-99) White Blood Count 5.5 x10^3/uL (4.0-11.0) Red Blood Count 4.52 x10^6/uL (3.50-5.40) Hemoglobin 13.1 g/dL (12.0-15.5) Hematocrit 40.7 % (36.0-47.0) Mean Corpuscular Volume 90 fL (79-100) Mean Corpuscular Hemoglobin 29 pg (25-35) Mean Corpuscular Hemoglobin Concent 32 g/dL (31-37) Red Cell Distribution Width 14.3 % (11.5-14.5) Platelet Count 133 x10^3/uL (140-400) Neutrophils (%) (Auto) 57 % (31-73) Lymphocytes (%) (Auto) 31 % (24-48) Monocytes (%) (Auto) 8 % (0-9) Eosinophils (%) (Auto) 4 % (0-3) Basophils (%) (Auto) 1 % (0-3) Neutrophils # (Auto) 3.1 x10^3uL (1.8-7.7) Lymphocytes # (Auto) 1.7 x10^3/uL (1.0-4.8) Monocytes # (Auto) 0.5 x10^3/uL (0.0-1.1) Eosinophils # (Auto) 0.2 x10^3/uL (0.0-0.7) Basophils # (Auto) 0.0 x10^3/uL (0.0-0.2) Sodium Level 142 mmol/L (136-145) Potassium Level 3.3 mmol/L (3.5-5.1) Chloride Level 103 mmol/L (98-107) Carbon Dioxide Level 30 mmol/L (21-32) Anion Gap 9 (6-14) Blood Urea Nitrogen 13 mg/dL (7-20) Creatinine 1.1 mg/dL (0.6-1.0) Estimated GFR (Cockcroft-Gault) 49.4 BUN/Creatinine Ratio 12 (6-20) Glucose Level 132 mg/dL (70-99) Calcium Level 9.6 mg/dL (8.5-10.1) Total Bilirubin 0.4 mg/dL (0.2-1.0) Aspartate Amino Transf (AST/SGOT) 70 U/L (15-37) Alanine Aminotransferase (ALT/SGPT) 53 U/L (14-59) Alkaline Phosphatase 59 U/L (46-116) Total Protein 7.1 g/dL (6.4-8.2) Albumin 3.1 g/dL (3.4-5.0) Albumin/Globulin Ratio 0.8 (1.0-1.7) Laboratory Tests Test 09/27/18 12:17 09/27/18 17:13 09/27/18 20:23 09/28/18 03:40 Glucose (Fingerstick) 166 mg/dL (70-99) 150 mg/dL (70-99) 85 mg/dL (70-99) White Blood Count 5.5 x10^3/uL (4.0-11.0) Red Blood Count 4.52 x10^6/uL (3.50-5.40) Hemoglobin 13.1 g/dL (12.0-15.5) Hematocrit 40.7 % (36.0-47.0) Mean Corpuscular Volume 90 fL (79-100) Mean Corpuscular Hemoglobin 29 pg (25-35) Mean Corpuscular Hemoglobin Concent 32 g/dL (31-37) Red Cell Distribution Width 14.3 % (11.5-14.5) Platelet Count 133 x10^3/uL (140-400) Neutrophils (%) (Auto) 57 % (31-73) Lymphocytes (%) (Auto) 31 % (24-48) Monocytes (%) (Auto) 8 % (0-9) Eosinophils (%) (Auto) 4 % (0-3) Basophils (%) (Auto) 1 % (0-3) Neutrophils # (Auto) 3.1 x10^3uL (1.8-7.7) Lymphocytes # (Auto) 1.7 x10^3/uL (1.0-4.8) Monocytes # (Auto) 0.5 x10^3/uL (0.0-1.1) Eosinophils # (Auto) 0.2 x10^3/uL (0.0-0.7) Basophils # (Auto) 0.0 x10^3/uL (0.0-0.2) Sodium Level 142 mmol/L (136-145) Potassium Level 3.3 mmol/L (3.5-5.1) Chloride Level 103 mmol/L (98-107) Carbon Dioxide Level 30 mmol/L (21-32) Anion Gap 9 (6-14) Blood Urea Nitrogen 13 mg/dL (7-20) Creatinine 1.1 mg/dL (0.6-1.0) Estimated GFR (Cockcroft-Gault) 49.4 BUN/Creatinine Ratio 12 (6-20) Glucose Level 132 mg/dL (70-99) Calcium Level 9.6 mg/dL (8.5-10.1) Total Bilirubin 0.4 mg/dL (0.2-1.0) Aspartate Amino Transf (AST/SGOT) 70 U/L (15-37) Alanine Aminotransferase (ALT/SGPT) 53 U/L (14-59) Alkaline Phosphatase 59 U/L (46-116) Total Protein 7.1 g/dL (6.4-8.2) Albumin 3.1 g/dL (3.4-5.0) Albumin/Globulin Ratio 0.8 (1.0-1.7) Test 09/28/18 03:44 09/28/18 07:14 Glucose (Fingerstick) 121 mg/dL (70-99) 125 mg/dL (70-99) Microbiology 09/25/18 Urine Culture - Preliminary, Resulted 09/25/18 Urine Culture Result 1 (QUIQUE) - Preliminary, Resulted Medications Current Medications Metoprolol Tartrate (Lopressor Vial) 5 mg 1X ONCE IVP Last administered on at 23:32; Start 09/25/18 at 23:15; Stop 09/25/18 at 23:16; Status DC Fentanyl Citrate (Fentanyl 2ml Vial) 50 mcg 1X ONCE IV Last administered on at 00:01; Start 09/26/18 at 00:00; Stop 09/26/18 at 00:01; Status DC Hydralazine HCl (Apresoline Inj) 10 mg 1X ONCE IVP Last administered on at 00:35; Start 09/26/18 at 00:30; Stop 09/26/18 at 00:31; Status DC Insulin Human Regular (HumuLIN R VIAL) 6 unit 1X ONCE IV Last administered on 09/26/18at 02:20; Start 09/26/18 at 01:45; Stop 09/26/18 at 01:46; Status DC Ondansetron HCl (Zofran) 4 mg PRN Q8HRS PRN IV NAUSEA/VOMITING; Start 09/26/18 at 01:45; Stop 09/27/18 at 01:44; Status DC Fentanyl Citrate (Fentanyl 2ml Vial) 50 mcg PRN Q1HR PRN IV PAIN Last administered on 09/27/18at 00:02; Start 09/26/18 at 01:45; Stop 09/27/18 at 01:44 ; Status DC Acetaminophen (Tylenol) 650 mg PRN Q4HRS PRN PO FEVER; Start 09/26/18 at 01:45 ; Stop 09/27/18 at 01:44; Status DC Nitroglycerin (Nitrostat) 0.4 mg PRN Q5MIN PRN SL CHEST PAIN; Start 09/26/18 at 01:45; Stop 09/27/18 at 01:44; Status DC Insulin Human Lispro (HumaLOG) 0-7 UNITS TIDWMEALS SQ Last administered on 09/26at 12:18; Start 09/26/18 at 08:00; Stop 09/26/18 at 17:12; Status DC Dextrose (Dextrose 50%-Water Syringe) 12.5 gm PRN Q15MIN PRN IV SEE COMMENTS; Start 09/26/18 at 01:45 Ceftriaxone Sodium (Rocephin) 1 gm 1X ONCE IVP Last administered on 09/26/18at 02:20; Start 09/26/18 at 01:45; Stop 09/26/18 at 01:46; Status DC Clonidine HCl (Catapres) 0.1 mg PRN Q8HRS PRN PO HYPERTENSION, SEE COMMENTS Last administered on 09/26/18at 15:23; Start 09/26/18 at 01:45 Labetalol HCl (Normodyne Iv Push) 20 mg 1X ONCE IVP Last administered on at 03:59; Start 09/26/18 at 03:30; Stop 09/26/18 at 03:32; Status DC Diphenhydramine HCl (Benadryl) 25 mg PRN Q6HRS PRN PO ITCHING Last administered on 09/26/18at 04:31; Start 09/26/18 at 04:30 Levofloxacin/ Dextrose 150 ml @ 100 mls/hr Q24H IV ; Start 09/27/18 at 06:00; Stop 09/27/18 at 06:00; Status DC Levofloxacin/ Dextrose 100 ml @ 100 mls/hr Q24H IV Last administered on at 05:58; Start 09/27/18 at 06:00; Stop 09/27/18 at 19:53; Status DC Aspirin (Robert Aspirin) 325 mg DAILY PO Last administered on 09/28/18at 08:42; Start 09/26/18 at 12:00 Metoprolol Succinate (Toprol Xl) 100 mg DAILY PO Last administered on at 12:06; Start 09/26/18 at 12:00; Stop 09/26/18 at 18:29; Status DC Pantoprazole Sodium (Protonix) 40 mg DAILYAC PO Last administered on 09/28/18at 05:40; Start 09/26/18 at 12:00 Trazodone HCl (Desyrel) 50 mg QHS PO Last administered on 09/27/18at 20:31; Start 09/26/18 at 21:00 Trazodone HCl (Desyrel) 100 mg QHS PO ; Start 09/26/18 at 21:00 Citalopram Hydrobromide (CeleXA) 10 mg DAILY PO Last administered on 09/28/18 08:43; Start 09/26/18 at 12:00 Insulin Human Lispro (HumaLOG) 24 units TIDWMEALS SQ Last administered on 09:02; Start 09/26/18 at 12:00 Insulin Glargine (Lantus) 74 units QHS SQ Last administered on 09/27/18at 20:40 ; Start 09/26/18 at 21:00 Levothyroxine Sodium (Synthroid) 250 mcg DAILY06 PO Last administered on at 12:06; Start 09/26/18 at 12:00; Stop 09/26/18 at 17:02; Status DC Losartan Potassium (Cozaar) 100 mg DAILY PO Last administered on 09/28/18 08: 43; Start 09/26/18 at 12:00 Atorvastatin Calcium (Lipitor) 80 mg QHS PO Last administered on 09/27/18at 20: 31; Start 09/26/18 at 21:00 Non-Formulary Medication (Semaglutide (Ozempic)) 0.5 mg QFR SQ ; Start 09/28/18 at 16:00; Status UNV Hydrochlorothiazide (Microzide) 12.5 mg DAILY PO Last administered on at 08:42; Start 09/26/18 at 12:00; Stop 09/27/18 at 10:12; Status DC Iohexol (Omnipaque 350 Mg/ml) 80 ml 1X ONCE IV Last administered on 09/26/18at 13:15; Start 09/26/18 at 13:15; Stop 09/26/18 at 13:16; Status DC Info (CONTRAST GIVEN -- Rx MONITORING) 1 each PRN DAILY PRN MC SEE COMMENTS; Start 09/26/18 at 13:15; Stop 09/28/18 at 13:14 Magnesium Oxide (Magnesium Oxide) 400 mg 1X ONCE PO Last administered on at 15:23; Start 09/26/18 at 15:00; Stop 09/26/18 at 15:01; Status DC Lactobacillus Rhamnosus (Culturelle) 1 cap BID PO Last administered on 08:43; Start 09/26/18 at 21:00 Hydralazine HCl (Apresoline Inj) 10 mg PRN Q4HRS PRN IVP ELEVATED BP, SEE COMMENTS Last administered on 09/27/18at 23:59; Start 09/26/18 at 16:45 Insulin Glargine (Lantus) 10 units QHS SQ ; Start 09/26/18 at 21:00; Status UNV Insulin Human Lispro (HumaLOG) 0-5 UNITS TIDWMEALS SQ Last administered on 09/27 12:33; Start 09/26/18 at 17:00 Dextrose (Dextrose 50%-Water Syringe) 12.5 gm PRN Q15MIN PRN IV SEE COMMENTS; Start 09/26/18 at 16:45; Status UNV Levothyroxine Sodium (Synthroid) 100 mcg ONCE ONCE PO Last administered on 17:46; Start 09/26/18 at 17:30; Stop 09/26/18 at 17:31; Status DC Enoxaparin Sodium (Lovenox 40mg Syringe) 40 mg Q24H SQ Last administered on 17:46; Start 09/26/18 at 17:00; Stop 09/27/18 at 08:33; Status DC Levothyroxine Sodium (Synthroid) 350 mcg DAILY06 PO Last administered on 05:40; Start 09/27/18 at 06:00 Carvedilol (Coreg) 12.5 mg BIDWMEALS PO Last administered on 09/28/18 08:44; Start 09/26/18 at 18:30 Enoxaparin Sodium (Lovenox 60mg Syringe) 60 mg Q12HR SQ Last administered on 08:51; Start 09/27/18 at 09:00 Chlorthalidone (Thalitone) 25 mg DAILY PO Last administered on 09/28/18 08:42 ; Start 09/27/18 at 11:00 Fentanyl Citrate (Fentanyl 2ml Vial) 50 mcg PRN Q2HR PRN IV PAIN SEVERE Last administered on 09/27/18 18:29; Start 09/27/18 at 10:45 Fentanyl Citrate (Fentanyl 2ml Vial) 25 mcg PRN Q2HR PRN IV PAIN MODERATE Last administered on 09/27/18 13:27; Start 09/27/18 at 10:45 Acetaminophen (Tylenol) 650 mg PRN Q6HRS PRN PO PAIN; Start 09/27/18 at 11:00 Potassium Chloride (Klor-Con) 40 meq 1X ONCE PO Last administered on 16:02; Start 09/27/18 at 15:00; Stop 09/27/18 at 15:01; Status DC Potassium Chloride (Klor-Con) 20 meq DAILYWBKFT PO Last administered on at 08:42; Start 09/28/18 at 08:00 Lidocaine (Lidoderm) 1 patch DAILY TD Last administered on 09/28/18at 08:52; Start 09/27/18 at 15:00 Miscellaneous (Lidoderm Patch Removal) 1 ea QHS MC Last administered on at 00:08; Start 09/27/18 at 21:00 Amlodipine Besylate (Norvasc) 5 mg 1X ONCE PO ; Start 09/27/18 at 15:30; Stop 09/27/18 at 15:31; Status DC Amlodipine Besylate (Norvasc) 10 mg DAILY PO Last administered on 09/28/18at 08: 43; Start 09/28/18 at 09:00 Methylprednisolone Acetate (DEPO-Medrol 40MG VIAL) 40 mg 1X ONCE IM ; Start at 17:45; Stop 09/27/18 at 17:46; Status DC Methylprednisolone Acetate (DEPO-Medrol 40MG VIAL) 40 mg 1X ONCE IM ; Start at 17:45; Stop 09/27/18 at 17:46; Status DC Bupivacaine HCl (Sensorcaine-Mpf 0.25%) 10 ml 1X ONCE IJ ; Start 09/27/18 at 17 :45; Stop 09/27/18 at 17:46; Status DC Diclofenac Sodium (Voltaren) 1 clayton BID TP Last administered on 09/27/18at 21:33 ; Start 09/27/18 at 21:00 Piperacillin Sod/ Tazobactam Sod (Zosyn Per Pharmacy) 1 each PRN DAILY PRN MC SEE COMMENTS; Start 09/27/18 at 19:15 Piperacillin Sod/ Tazobactam Sod 3.375 gm/Sodium Chloride 50 ml @ 100 mls/hr Q6HRS IV Last administered on 09/28/18at 05:40; Start 09/28/18 at 00:00 Active Scripts Active Reported Tresiba Flextouch U-200 (Insulin Degludec) 200 Unit/1 Ml Insuln.pen 64 Unit SQ QHS Ozempic (Semaglutide) 0.25 Mg/0.2 Ml Pen.injctr 0.5 Mg SQ QFR Novolog Flexpen (Insulin Aspart) 100 Unit/1 Ml Insuln.pen 24 Unit SQ TIDWMEALS Levothyroxine Sodium 125 Mcg Tablet 250 Mcg PO DAILYAC Trazodone Hcl 100 Mg Tablet 1 Tab PO QHS Trazodone Hcl 50 Mg Tablet 1 Tab PO QHS Protonix (Pantoprazole Sodium) 40 Mg Tablet.dr 1 Tab PO DAILY Crestor (Rosuvastatin Calcium) 20 Mg Tablet 20 Mg PO HS Aspirin 325 Mg Tablet 1 Tab PO DAILY Losartan-Hctz 100-12.5 Mg Tab (Losartan/Hydrochlorothiazide) 1 Each Tablet 1 Tab PO DAILY Metoprolol Succinate ( Xl ) (Metoprolol Succinate) 100 Mg Tab.er.24h 100 Mg Escitalopram Oxalate 10 Mg Tablet 20 Mg PO DAILY Vitals/I & O Vital Sign - Last 24 Hours 09/27/18 09/27/18 09/27/18 09/27/18 11:00 15:30 15:58 17:43 Temp 98.0 97.7 98.0 97.7 Pulse 58 57 56 57 Resp 20 20 B/P (MAP) 158/70 (99) 123/59 123/59 (80) 183/84 Pulse Ox 93 90 O2 Delivery Room Air Room Air 09/27/18 09/27/18 09/27/18 09/27/18 18:59 19:00 20:00 23:40 Temp 97.5 97.8 97.5 97.8 Pulse 53 55 Resp 16 18 20 B/P (MAP) 139/62 (87) 182/79 (113) Pulse Ox 96 96 98 O2 Delivery Room Air Nasal Cannula Room Air BiPAP/CPAP O2 Flow Rate 2.0 09/27/18 09/28/18 09/28/18 09/28/18 23:59 00:36 03:30 07:00 Temp 97.5 98.0 97.5 98.0 Pulse 55 60 55 60 Resp 18 18 18 B/P (MAP) 182/79 153/68 (96) 164/68 (100) 150/65 (93) Pulse Ox 98 95 O2 Delivery BiPAP/CPAP BiPAP/CPAP 09/28/18 09/28/18 09/28/18 08:43 08:43 08:44 Pulse 61 56 61 B/P (MAP) 165/70 165/70 165/70 Intake and Output 3/28/19 3/28/19 3/29/19 15:00 23:00 07:00 Intake Total 400 ml 300 ml Balance 400 ml 300 ml NIKITA DU MD Sep 28, 2018 10:36
--- NOTE | 2018-09-28 12:08 | PDOC ---
RANJIT NICOLE FISH PROTECTOR 09/28/18 1208: SUBJECTIVE Subjective Pt still having some pain under the right ribcage, but tolerable with medication. Spouse still has new patient paperwork and appointment card given to him yesterday OBJECTIVE Objective Physical Exam: General appearance: Alert and Oriented Head: Normocephalic, without obvious abnormality Eyes: conjunctivae/corneas clear. PERRL, EOM's intact. Fundi benign Back: negative, no CVA pain bilaterally Lungs: Regular and non labored respirations. Abdomen: soft, morbidly obese. Small amount of tenderness with palpation right below right ribcage. Otherwise, abd non-tender. . No masses, no organomegaly Vital Signs Vital Signs Date Time Temp Pulse Resp B/P (MAP) Pulse Ox O2 Delivery O2 Flow Rate FiO2 09/28/18 11:00 98.5 64 18 130/59 (82) 94 BiPAP/CPAP 98.5 09/28/18 08:44 61 165/70 09/28/18 08:43 56 165/70 09/28/18 08:43 61 165/70 09/28/18 08:00 Room Air 09/28/18 07:00 98.0 60 18 150/65 (93) 95 BiPAP/CPAP 98.0 09/28/18 03:30 97.5 55 18 164/68 (100) 98 BiPAP/CPAP 97.5 09/28/18 00:36 60 18 153/68 (96) 09/27/18 23:59 55 182/79 09/27/18 23:40 97.8 55 20 182/79 (113) 98 BiPAP/CPAP 97.8 09/27/18 20:00 Room Air 09/27/18 19:00 97.5 53 18 139/62 (87) 96 Nasal Cannula 2.0 97.5 09/27/18 18:59 16 96 Room Air 09/27/18 17:43 57 183/84 09/27/18 15:58 97.7 56 20 123/59 (80) 90 Room Air 97.7 09/27/18 15:30 57 123/59 I & O Intake and Output 09/28/18 07:00 Intake Total 700 ml Balance 700 ml Intake Oral 700 ml # Voids 1 PHYSICAL EXAM Physical Exam Physical Exam: General appearance: Alert and Oriented Head: Normocephalic, without obvious abnormality Eyes: conjunctivae/corneas clear. PERRL, EOM's intact. Fundi benign Back: negative, no CVA pain bilaterally Lungs: Regular and non labored respirations. Abdomen: soft, morbidly obese. Small amount of tenderness with palpation right below right ribcage. Otherwise, abd non-tender. . No masses, no organomegaly ASSESSMENT/PLAN Assessment/Plan Assessment/Plan Pt has several large stones that will require either staged ureteroscopy or percutaneous approach. Likely she will need more than one surgery to completely rid her of stone burden. Dr. Taveras did discuss a possibility of 3-4 surgeries with her, as an estimate, to completely rid her of stone burden. Patient may be too obese for PCNL; if so can perform a staged ureteroscopy. Stones are not currently obstructing and an unlikely cause of her pain. A follow up appointment has been secured for patient on 10/17/18 on 220 pm. Appointment card and new patient paperwork given to patient's yesterday. At that time we will discuss with patient different options for stone management. Whenever she does go home, recommend she go home on a good oral antibiotic to get her through until 10/17/18 COMMENT Lab Laboratory Tests Test 09/27/18 12:17 09/27/18 17:13 09/27/18 20:23 09/28/18 03:40 Glucose (Fingerstick) 166 mg/dL (70-99) 150 mg/dL (70-99) 85 mg/dL (70-99) White Blood Count 5.5 x10^3/uL (4.0-11.0) Red Blood Count 4.52 x10^6/uL (3.50-5.40) Hemoglobin 13.1 g/dL (12.0-15.5) Hematocrit 40.7 % (36.0-47.0) Mean Corpuscular Volume 90 fL (79-100) Mean Corpuscular Hemoglobin 29 pg (25-35) Mean Corpuscular Hemoglobin Concent 32 g/dL (31-37) Red Cell Distribution Width 14.3 % (11.5-14.5) Platelet Count 133 x10^3/uL (140-400) Neutrophils (%) (Auto) 57 % (31-73) Lymphocytes (%) (Auto) 31 % (24-48) Monocytes (%) (Auto) 8 % (0-9) Eosinophils (%) (Auto) 4 % (0-3) Basophils (%) (Auto) 1 % (0-3) Neutrophils # (Auto) 3.1 x10^3uL (1.8-7.7) Lymphocytes # (Auto) 1.7 x10^3/uL (1.0-4.8) Monocytes # (Auto) 0.5 x10^3/uL (0.0-1.1) Eosinophils # (Auto) 0.2 x10^3/uL (0.0-0.7) Basophils # (Auto) 0.0 x10^3/uL (0.0-0.2) Sodium Level 142 mmol/L (136-145) Potassium Level 3.3 mmol/L (3.5-5.1) Chloride Level 103 mmol/L (98-107) Carbon Dioxide Level 30 mmol/L (21-32) Anion Gap 9 (6-14) Blood Urea Nitrogen 13 mg/dL (7-20) Creatinine 1.1 mg/dL (0.6-1.0) Estimated GFR (Cockcroft-Gault) 49.4 BUN/Creatinine Ratio 12 (6-20) Glucose Level 132 mg/dL (70-99) Calcium Level 9.6 mg/dL (8.5-10.1) Total Bilirubin 0.4 mg/dL (0.2-1.0) Aspartate Amino Transf (AST/SGOT) 70 U/L (15-37) Alanine Aminotransferase (ALT/SGPT) 53 U/L (14-59) Alkaline Phosphatase 59 U/L (46-116) Total Protein 7.1 g/dL (6.4-8.2) Albumin 3.1 g/dL (3.4-5.0) Albumin/Globulin Ratio 0.8 (1.0-1.7) Test 09/28/18 03:44 09/28/18 07:14 09/28/18 10:34 Glucose (Fingerstick) 121 mg/dL (70-99) 125 mg/dL (70-99) 157 mg/dL (70-99) EMELY MELGAR MD 09/28/18 9702: ASSESSMENT/PLAN Assessment/Plan large non obstructing stones. morbidly obese. no acute intervention needed. . ANNE TAVERAS MD 09/30/18 0859: ASSESSMENT/PLAN Assessment/Plan Agree with assessment and plan. RANJIT NICOLE APRN Sep 28, 2018 12:08 EMELY MELGAR MD Sep 28, 2018 22:09 ANNE TAVERAS MD Sep 30, 2018 08:59
[2018-09-28] MEDS: fentaNYL PF VIAL 100 MCG/2 ML VIAL IV PRN ×2 (12:41→21:39)
--- NOTE | 2018-09-28 13:13 | CONS ---
DATE OF CONSULTATION: 09/27/2018 REFERRING PHYSICIAN: Dr. Katz. REASON FOR CONSULTATION: Possible pyelonephritis in the setting of bilateral kidney stones. HISTORY OF PRESENT ILLNESS: The patient is a 68-year-old female who presented to the ER with complaints of left-sided chest pain radiating to the left abdominal wall. The patient had pain in the abdomen and bilateral flanks off and on since 06/2018. She was seen by her primary care physician who told that her pain was constipation with which she struggles on a chronic basis. Pain became so intense that she was unable to tolerate it anymore, so came to the ER. She denies any fevers, chills, nausea, vomiting, diarrhea, abdominal pain, dysuria, hematuria, difficulty emptying her bladder. She had pain over the ribcage bilaterally, more on the left initially, now on both the sides and going to the right back. She denies being on any antibiotics recently. She has had history of recurrent urinary tract infection in the past in 2018. She had E. coli urosepsis, treated with Zosyn initially, which she tolerated well and then was given Levaquin for 7 days. The patient had problems with tendinitis of the right second finger after that and states that she cannot tolerate Levaquin anymore. The patient also had Proteus mirabilis bacteremia in 08/2016. The source was thought to be urine. When she presented to the ER, her white count was 7.1, hemoglobin of 14.0, platelets of 151. Creatinine of 1.0. UA showed large blood, negative nitrite, moderate leukocyte esterase, rbc's too numerous to count, wbc's too numerous to count, few bacteria, greater than 1000 urine glucose, greater than 300 urine protein. Influenza screen was negative. Hemoglobin A1c of 9.1, calcium of 9.1. AST 75, ALT 61, alkaline phosphatase 70, total bilirubin 0.3. TSH of 42.273. The patient was given one dose of Rocephin in the ER. Subsequent to that, she had rash all over her body with itching, so she was started on Levaquin on 09/26/2018. Currently, the patient feels a little better. Still continues to have bilateral right and left ribcage pain going to her back, more on the right than the left. Her blood pressure was very high with hypertensive urgency on presentation, now is under control. Her levothyroxine has been adjusted. She denies any fevers, chills, nausea, vomiting, diarrhea, abdominal pain, symptoms, headache, neck pain, sore throat or difficulty swallowing, sick contact PAST MEDICAL HISTORY: History of ovarian cancer, hypertension, hyperlipidemia, CVA, GERD, depression, anxiety, osteoarthritis, urinary incontinence, diabetes, hypothyroidism, history of Proteus sepsis, history of E. coli urosepsis, history of tendinitis from Levaquin. PAST SURGICAL HISTORY: Cholecystectomy, bladder stimulation surgery and ovarian cancer surgery. REVIEW OF SYSTEMS: Negative except for above in HPI. ALLERGIES: MORPHINE AND LOVASTATIN. QUESTIONABLE ADVERSE REACTION TO LEVAQUIN. DERMATITIS WITH ROCEPHIN. FAMILY HISTORY: Per HPI. SOCIAL HISTORY: and lives with her . No smoking, ETOH or illicit drug use. CURRENT MEDICATIONS: Levaquin. Other medications reviewed in medication list. PHYSICAL EXAMINATION: VITAL SIGNS: Temperature 97.7, pulse 56, respiratory rate 20, blood pressure 123/59, oxygen saturation 90% on room air. GENERAL: Pleasant, alert, oriented x 3 female, in no acute distress, cooperative, able to sit on the edge of the bed without difficulty. HEENT: Normocephalic, atraumatic, anicteric. No thrush. Oral mucosa moist. NECK: Supple. No JVD. No thyromegaly. No carotid bruit. LUNGS: Clear to auscultation and percussion. No wheezing. CARDIOVASCULAR: S1, S2. No gallops, murmurs or rubs. ABDOMEN: Soft, nontender, nondistended. Mild tenderness present in both flanks, right greater than the left. No rebound or guarding. No masses felt. DERMATOLOGIC: Warm, dry, no generalized rash. Rash on the back is fading. No open skin wounds noted. PSYCHIATRIC: Cooperative, appropriate mood and affect. CENTRAL NERVOUS SYSTEM: Alert and oriented x 3. Grossly nonfocal. LABORATORY DATA: WBC 6.1, hemoglobin 12.7, hematocrit 39.2, platelets 133, was 151. UA shows large blood, moderate leukocyte esterase, wbc's too numerous to count, rbc's too numerous to count. Sodium 140, potassium 3.2, chloride 101, bicarbonate 31, BUN 13, creatinine 0.9, glucose 150, calcium 9.2, total bilirubin 0.3, AST 56, ALT 47, alkaline phosphatase 57, total protein 7.1, albumin 3.1. IMAGING: CT angio, chest, abdomen and pelvis. Impression: Stable aneurysmal dilatation of the ascending aorta 4.7 cm in the greatest, on the coronal images, there is no significant change since 01/2017. There is more extensive atherosclerotic plaquing of the abdominal aorta without evidence of aneurysm or high grade stenosis, bilateral intrarenal calculi, worse on the right. Several moderate sized calculi in the right renal system and staghorn type configuration, the largest of these measures 3.2 cm in width. There is no associated hydronephrosis. There is streaking increased density in the parapelvic fat on the right suggesting chronic inflammation or scarring. There are smaller nonobstructing intrarenal calculi in the left. Bilateral renal cortical scarring, more so on the right. Mild left adrenal nodularity is stable. Moderate multilevel degenerative changes are present in the spine. Chest x-ray shows heart is moderately enlarged, aorta is tortuous. Prominence of pulmonary arterial trunk may be seen with pulmonary arterial hypertension. No lobar consolidation, no pleural effusion or pneumothorax. Micro urine culture pending at this time. Urine culture none. IMPRESSION: 1. Bilateral flank pain, right greater than left. Pyuria. Urine culture negative so far. Blood cultures were not done. Bilateral intrarenal calculi, worse on the right, with large 3.2 cm staghorn type renal calculi. There is no associated hydronephrosis. There is a streaking increased density in the parapelvic fat on the right suggesting chronic inflammation or scarring. 2. Smaller nonobstructing intrarenal calculi in the left. 3. Hypertensive urgency, now stable. 4. Protein-calorie malnutrition. 5. Atypical chest pain. 6. Diabetes mellitus, poorly controlled. 7. Hypothyroidism. 8. History of urinary tract infection in the past, E. coli. 9. Proteus sepsis. 10. Escherichia coli urosepsis. 11. Hepatic steatosis. 12. Morbid obesity. 13. Obstructive sleep apnea, on CPAP. 14. History of cerebrovascular accident. 15. History of uterine cancer, status post hysterectomy. 16. Anxiety and depression. 17. Tendinitis from questionable Levaquin. 18. Rash from ceftriaxone this admission. 19. Has tolerated Zosyn well in the past. 20. Mild thrombocytopenia. 21. Discontinue Levaquin. 22. Start the patient on Zosyn as the patient has tolerated well in the past. 23. Urine culture negative so far. 24. If they remain negative, we will discontinue antibiotics. 25. Urology has evaluated the patient and she is not a candidate for ESWL or PCNL due to her obesity. 26. The patient is concerned about pain control. Pain management per primary. 27. Continue supportive care. 28. Discussed with RN. 29. Renal ultrasound done in 10/2017 showed no major abnormalities. In 10/2017, showed sonographically unremarkable kidney. Thank you, Dr. Katz for consulting Infectious Disease to participate in this patient's care. If you have any questions, do not hesitate to contact me. LAURA BRAND MD DR: KELLY/nts JOB#: [id number] / [id number]
[2018-09-28] MEDS ORDERED: POTASSIUM CHLORIDE 20 MEQ TABLET.ER. PO ONE (14:15)
[2018-09-28] MEDS ORDERED: SEMAGLUTIDE 0.5 MG SQ SCH (16:00)
[2018-09-28 16:20] LABS: BILIRUBIN,URINE NEGATIVE (NEG); CLARITY,URINE CLEAR; COLOR,URINE YELLOW; NITRITE,URINE NEGATIVE (NEG); PH,URINE 6.5; PROTEIN,URINE 100 mg/dL (NEG-TRACE)
[2018-09-28 16:32] LABS: BACTERIA,URINE FEW /HPF (0-FEW); SQUAMOUS EPITHELIAL CELL,UR OCC /LPF; WBC,URINE TNTC /HPF (0-4)
[2018-09-28] MEDS: traZODone 50 MG TABLET. PO SCH (21:21)
[2018-09-28] MEDS: ATORVASTATIN CALCIUM 40 MG TABLET. PO SCH (21:23)
[2018-09-28] MEDS: traZODone 100 MG TABLET. PO SCH (21:25)
[2018-09-28] MEDS: INSULIN GLARGINE 300 UNITS/3 ML INSULN.PEN. SQ SCH (21:28)
--- NOTE | 2018-09-28 21:28 | NUR ---
FSBS 203, Patient only wanted 64 units Lantus. States "My home dose is 64 units."
[2018-09-29] MEDS: PIPERACILLIN/TAZOBACTAM 3.375 GM in IV NORMAL SALINE 50ML 50 ML IV SCH ×3 (01:00→11:56)
[2018-09-29 03:25] VITALS: BP 164/68
[2018-09-29 05:53] LABS: BASO % 1 % (0-3); EOS # 0.2 x10^3/uL (0.0-0.7); EOS % 4 % (0-3); HEMATOCRIT 38.7 % (36.0-47.0); HEMOGLOBIN 12.6 g/dL (12.0-15.5); LYMPH # 1.5 x10^3/uL (1.0-4.8); LYMPH % 29 % (24-48); MEAN CORPUSCULAR HEMOGLOBIN 29 pg (25-35); MEAN CORPUSCULAR HGB CONC 33 g/dL (31-37); MEAN CORPUSCULAR VOLUME 90 fL (79-100); MONO # 0.5 x10^3/uL (0.0-1.1); MONO % 9 % (0-9); NEUT # 2.9 x10^3uL (1.8-7.7); NEUT % 57 % (31-73); PLATELET COUNT 129 x10^3/uL (140-400); RED CELL DISTRIBUTION WIDTH 14.7 % (11.5-14.5)
[2018-09-29 06:12] LABS: CALCIUM 9.4 mg/dL (8.5-10.1); CREATININE 1.1 mg/dL (0.6-1.0); GFR 49.4; POTASSIUM 3.8 mmol/L (3.5-5.1)
[2018-09-29] MEDS: LEVOTHYROXINE 100 MCG TABLET PO SCH (06:22)
[2018-09-29] MEDS: PANTOPRAZOLE 40 MG TABLET.DR. PO SCH (06:22)
[2018-09-29 07:20] VITALS: BP 164/74
[2018-09-29] MEDS: oxyCODONE/APAP 5/325 1 TAB TABLET PO PRN ×2 (08:32→15:10)
[2018-09-29] MEDS: DICLOFENAC SODIUM 1% TOPICAL GEL 100GM TUBE. TP SCH ×2 (08:33→21:37)
[2018-09-29] MEDS: CITALOPRAM 10 MG TABLET. PO SCH (08:33)
[2018-09-29] MEDS: LOSARTAN POTASSIUM 50 MG TABLET. PO SCH (08:33)
[2018-09-29] MEDS: CHLORTHALIDONE 25 MG TABLET. PO SCH (08:33)
[2018-09-29] MEDS: LACTOBACILLUS RHAMNOSUS GG 1 CAPSULE. PO SCH ×2 (08:33→21:36)
[2018-09-29] MEDS: ASPIRIN 325 MG TABLET PO SCH (08:33)
[2018-09-29] MEDS: LIDOCAINE (700MG/PATCH) PATCH. TD SCH (08:33)
[2018-09-29] MEDS: amLODIPine BESYLATE 10 MG TABLET PO SCH (08:34)
[2018-09-29] MEDS: POTASSIUM CHLORIDE 20 MEQ TABLET.ER. PO SCH ×2 (08:34)
[2018-09-29] MEDS: CARVEDILOL 12.5 MG TABLET. PO SCH ×2 (08:35→17:27)
[2018-09-29] MEDS: INSULIN LISPRO 300 UNITS/3 ML INSULN.PEN. SQ SCH ×7 (08:39→21:43)
--- NOTE | 2018-09-29 09:41 | PDOC ---
Infectious Disease Note Subjective Subjective c/o persistent right flank pain, mostly localized to under the rib cage. At times feels "like a stab with a knife that takes my breath away" and sometimes radiates to the left flank Denies F/C/S/body aches Denies N/V/D Denies CP/cough/SOA Walking in the halls Appetite good ROS ROS per HPI otherwise negative Vital Sign Vital Signs Vital Signs Date Time Temp Pulse Resp B/P (MAP) Pulse Ox O2 Delivery O2 Flow Rate FiO2 09/29/18 08:35 52 164/74 09/29/18 08:32 18 96 Room Air 2.0 09/29/18 07:20 97.9 97.9 Physical Exam PHYSICAL EXAM General: Propped up in bed, alert, laughing HEENT: DEVONTE. Oropharynx dry, no thrush. CPAP Lungs : clear bilaterally Heart : S1, S2 Abdomen: Obese, soft, NT light palpation Ext : NO edema , no cyanosis CARAMEL MAKER grossly nonfocal AxOx3 Derm : fading generalized rash, no open wounds PIV ok Labs Lab Laboratory Tests Test 09/28/18 10:34 09/28/18 15:59 09/28/18 16:00 09/28/18 20:37 Glucose (Fingerstick) 157 mg/dL (70-99) 86 mg/dL (70-99) 203 mg/dL (70-99) Urine Color Yellow Urine Clarity Clear Urine pH 6.5 Urine Specific Wells 1.015 Urine Protein 100 mg/dL (NEG-TRACE) Urine Glucose (UA) Negative mg/dL (NEG) Urine Ketones (Stick) Negative mg/dL (NEG) Urine Blood Large (NEG) Urine Nitrite Negative (NEG) Urine Bilirubin Negative (NEG) Urine Urobilinogen Dipstick 1.0 mg/dL (0.2 mg/dL) Urine Leukocyte Esterase Moderate (NEG) Urine RBC 3-5 /HPF (0-2) Urine WBC Tntc /HPF (0-4) Urine Squamous Epithelial Cells Occ /LPF Urine Bacteria Few /HPF (0-FEW) Urine Mucus Slight /LPF Test 09/29/18 05:25 09/29/18 07:37 White Blood Count 5.0 x10^3/uL (4.0-11.0) Red Blood Count 4.30 x10^6/uL (3.50-5.40) Hemoglobin 12.6 g/dL (12.0-15.5) Hematocrit 38.7 % (36.0-47.0) Mean Corpuscular Volume 90 fL (79-100) Mean Corpuscular Hemoglobin 29 pg (25-35) Mean Corpuscular Hemoglobin Concent 33 g/dL (31-37) Red Cell Distribution Width 14.7 % (11.5-14.5) Platelet Count 129 x10^3/uL (140-400) Neutrophils (%) (Auto) 57 % (31-73) Lymphocytes (%) (Auto) 29 % (24-48) Monocytes (%) (Auto) 9 % (0-9) Eosinophils (%) (Auto) 4 % (0-3) Basophils (%) (Auto) 1 % (0-3) Neutrophils # (Auto) 2.9 x10^3uL (1.8-7.7) Lymphocytes # (Auto) 1.5 x10^3/uL (1.0-4.8) Monocytes # (Auto) 0.5 x10^3/uL (0.0-1.1) Eosinophils # (Auto) 0.2 x10^3/uL (0.0-0.7) Basophils # (Auto) 0.0 x10^3/uL (0.0-0.2) Sodium Level 141 mmol/L (136-145) Potassium Level 3.8 mmol/L (3.5-5.1) Chloride Level 102 mmol/L (98-107) Carbon Dioxide Level 30 mmol/L (21-32) Anion Gap 9 (6-14) Blood Urea Nitrogen 14 mg/dL (7-20) Creatinine 1.1 mg/dL (0.6-1.0) Estimated GFR (Cockcroft-Gault) 49.4 Glucose Level 178 mg/dL (70-99) Calcium Level 9.4 mg/dL (8.5-10.1) Glucose (Fingerstick) 180 mg/dL (70-99) Micro URINE CULTURE RES 1 Final Proteus mirabilis 10,000-25,000 colony forming units per mL Cefazolin with an QUIQUE <=16 predicts susceptibility to the oral agents cefaclor, cefdinir, cefpodoxime, cefprozil, cefuroxime, cephalexin, and loracarbef when used for therapy of uncomplicated urinary tract infections due to E. coli, Klebsiella pneumoniae, and Proteus mirabilis. ANTIMICROBIAL SUSCEPTIBILITY Final Comment S = Susceptible; I = Intermediate; R = Resistant P = Positive; N = Negative MICS are expressed in micrograms per mL Antibiotic RSLT#1 RSLT#2 RSLT#3 RSLT#4 Amoxicillin/Clavulanic Acid S<=2 Ampicillin S<=2 Cefazolin S Cefepime S<=0.12 Ceftriaxone S<=0.25 Cefuroxime S =2 Ciprofloxacin S<=0.25 Ertapenem S<=0.12 Gentamicin S<=1 Levofloxacin S<=0.12 Meropenem S =0.5 Nitrofurantoin R =256 Piperacillin/Tazobactam S<=4 Tetracycline R>=16 Tobramycin S<=1 Trimethoprim/Sulfa S<=20 Objective Assessment UTI Proteus, 09/25 Allergies/intolerances: Rash from Ceftriaxone this admission. Has tolerated Zosyn well in the past. Tendinitis from ? Levaquin Extensive obstructive uropathy from nephrolithiasis. Large 3.2 cm in width in right renal collecting system with chronic inflammation or scarring HTN Urgency resolved Protein calorie malnutrition Atypical Chest pain DM Hypothyroidism H/O UTIs in the past Hepatic steatosis Morbid obesity KARENA H/O E coli urosepsis 10/2017 H/O proteus bacteremia 08/2016 Dilated ascending aorta 4.7 cm Thrombocytopenia Plan Plan of Care Zosyn since 09/28 changed to augmentin Previously on Rocephin and Levaquin Monitor plt Until anatomic abnormality is not resolved pt remains at risk of recurrent utis /sepsis due to large rt renal staghorn calculi Urology evaluated pt and she is not a candidate for ESWL or PCNL , will need surgery as outpt Pain management per primary Cont supportive care Pain also related to constipation Needs OT/PT Attending Co-Sign Attending Co-Sign The patient was seen and interviewed as well as examined at the bedside. The chart was reviewed. The case was discussed. Agree with the plan of care. IAIN JUNIOR APRN Sep 29, 2018 09:40 THOM BLACKWOOD MD Sep 29, 2018 14:43
--- NOTE | 2018-09-29 10:35 | PDOC ---
PROGRESS NOTES History of Present Illness History of Present Illness Assessment/Plan Assessment/Plan IMPRESSION 1. CHEST PAIN 2. SEPSIS SEC TO ACUTE PYELONEPHRITIS several moderate sized calculi in the right renal collecting system and a staghorn-type configuration. The largest of these measures 3.2 cm in width. There is no associated hydronephrosis. There is streaky increased density in the parapelvic fat on the right suggesting chronic inflammation or scarring. There are smaller nonobstructing intrarenal calculi on the left. There is bilateral renal cortical scarring, more so on the right. 3. MORBID OBESITY, EXTREME 4. Stable aneurysmal dilatation of the ascending aorta. There is dilatation of the ascending aorta. It measures 4.7 cm in greatest width on the coronal images. There has been no significant change since 02/06/2017. 5. Bilateral intrarenal calculi, worse on the right. 6. UNTREATED HYPOTHYROID STATE 7. Metabolic syndrome 8. UNCONTROLLED DIABETES 9. several large stones that will require either staged ureteroscopy or percutaneous approach. PLAN BLOOD AND URINE CULTURES EMPERIC IV ANTIBIOTICS CARDIOLOGY CONSULT REVIEWED ECHO UROLOGY FOLLOWING RE STAGHORN RENAL CALCULUS synthroid 100mcg po daily weight loss needed Lantus 10units sq q hs SS INSULIN DVT PROPHYLAXIS LEFT LOWER BACK PAIN proceed with injecting painful left trochanteric bursa and sacroiliac joint to help ease her pain. pt/ot may need extensive rx of stone at [facility] [facility] IN NEAR FUTURE/// Until anatomic abnormality is not resolved pt remains at risk of recurrent utis /sepsis due to large rt renal staghorn calculi 46 MIN PT EXAM, CHART REVIEW, > 50% TIME SPENT WITH PT EXAM, CHART REVIEW, PT CARE COORDINATION Vitals Vitals Vital Signs Date Time Temp Pulse Resp B/P (MAP) Pulse Ox O2 Delivery O2 Flow Rate FiO2 09/29/18 08:35 52 164/74 09/29/18 08:32 18 96 Room Air 2.0 09/29/18 07:20 97.9 97.9 Physical Exam Physical Exam General: Propped up in bed, alert, ON CPAP HEENT: DEVONTE. Oropharynx dry, no thrush. CPAP Lungs : clear bilaterally Heart : S1, S2 Abdomen: Obese, soft, NT light palpation Ext : NO edema , no cyanosis [employer] grossly nonfocal AxOx3 Derm : fading generalized rash, no open wounds PIV ok General: Alert, Oriented X3, Cooperative, No acute distress, mild distress Heart: Regular rate (SR), Normal S1, Normal S2, Other (2/6 systolic murmur to LLS border) Lungs: Clear Abdomen: Normal bowel sounds, Soft, No hepatosplenomegaly Extremities: No clubbing, No cyanosis, Other (trace to 1+ pitting leg edema) Skin: No breakdown, No significant lesion Labs LABS Procedure Result URINE CULTURE Final Final report URINE CULTURE RES 1 Final Proteus mirabilis 10,000-25,000 colony forming units per mL Cefazolin with an QUIQUE <=16 predicts susceptibility to the oral agents cefaclor, cefdinir, cefpodoxime, cefprozil, cefuroxime, cephalexin, and loracarbef when used for therapy of uncomplicated urinary tract infections due to E. coli, Klebsiella pneumoniae, and Proteus mirabilis. ANTIMICROBIAL SUSCEPTIBILITY Final Comment S = Susceptible; I = Intermediate; R = Resistant P = Positive; N = Negative MICS are expressed in micrograms per mL Antibiotic RSLT#1 RSLT#2 RSLT#3 RSLT#4 Amoxicillin/Clavulanic Acid S<=2 Ampicillin S<=2 Cefazolin S Cefepime S<=0.12 Ceftriaxone S<=0.25 Cefuroxime S =2 Ciprofloxacin S<=0.25 Ertapenem S<=0.12 Gentamicin S<=1 Levofloxacin S<=0.12 Meropenem S =0.5 Nitrofurantoin R =256 Piperacillin/Tazobactam S<=4 Tetracycline R>=16 Tobramycin S<=1 Trimethoprim/Sulfa S<=20 Performed at: DA - [facility] [address] [facility] [address], [place], [place] [id number] Appointment Setter: VELVET Sweet MD, Phone: [phone] Laboratory Tests Test 09/28/18 15:59 09/28/18 16:00 09/28/18 20:37 09/29/18 05:25 Glucose (Fingerstick) 86 mg/dL (70-99) 203 mg/dL (70-99) Urine Color Yellow Urine Clarity Clear Urine pH 6.5 Urine Specific Clements 1.015 Urine Protein 100 mg/dL (NEG-TRACE) Urine Glucose (UA) Negative mg/dL (NEG) Urine Ketones (Stick) Negative mg/dL (NEG) Urine Blood Large (NEG) Urine Nitrite Negative (NEG) Urine Bilirubin Negative (NEG) Urine Urobilinogen Dipstick 1.0 mg/dL (0.2 mg/dL) Urine Leukocyte Esterase Moderate (NEG) Urine RBC 3-5 /HPF (0-2) Urine WBC Tntc /HPF (0-4) Urine Squamous Epithelial Cells Occ /LPF Urine Bacteria Few /HPF (0-FEW) Urine Mucus Slight /LPF White Blood Count 5.0 x10^3/uL (4.0-11.0) Red Blood Count 4.30 x10^6/uL (3.50-5.40) Hemoglobin 12.6 g/dL (12.0-15.5) Hematocrit 38.7 % (36.0-47.0) Mean Corpuscular Volume 90 fL (79-100) Mean Corpuscular Hemoglobin 29 pg (25-35) Mean Corpuscular Hemoglobin Concent 33 g/dL (31-37) Red Cell Distribution Width 14.7 % (11.5-14.5) Platelet Count 129 x10^3/uL (140-400) Neutrophils (%) (Auto) 57 % (31-73) Lymphocytes (%) (Auto) 29 % (24-48) Monocytes (%) (Auto) 9 % (0-9) Eosinophils (%) (Auto) 4 % (0-3) Basophils (%) (Auto) 1 % (0-3) Neutrophils # (Auto) 2.9 x10^3uL (1.8-7.7) Lymphocytes # (Auto) 1.5 x10^3/uL (1.0-4.8) Monocytes # (Auto) 0.5 x10^3/uL (0.0-1.1) Eosinophils # (Auto) 0.2 x10^3/uL (0.0-0.7) Basophils # (Auto) 0.0 x10^3/uL (0.0-0.2) Sodium Level 141 mmol/L (136-145) Potassium Level 3.8 mmol/L (3.5-5.1) Chloride Level 102 mmol/L (98-107) Carbon Dioxide Level 30 mmol/L (21-32) Anion Gap 9 (6-14) Blood Urea Nitrogen 14 mg/dL (7-20) Creatinine 1.1 mg/dL (0.6-1.0) Estimated GFR (Cockcroft-Gault) 49.4 Glucose Level 178 mg/dL (70-99) Calcium Level 9.4 mg/dL (8.5-10.1) Test 09/29/18 07:37 Glucose (Fingerstick) 180 mg/dL (70-99) Assessment and Plan Assessmemt and Plan Problems Medical Problems: (1) Accelerated hypertension Status: Acute (2) Chest pain Status: Acute (3) Hyperglycemia Status: Acute (4) Pyelonephritis Status: Acute Comment Review of Relevant I have reviewed the following items jeffrey (where applicable) has been applied. Labs Laboratory Tests Test 09/27/18 12:17 09/27/18 17:13 09/27/18 20:23 09/28/18 03:40 Glucose (Fingerstick) 166 mg/dL (70-99) 150 mg/dL (70-99) 85 mg/dL (70-99) White Blood Count 5.5 x10^3/uL (4.0-11.0) Red Blood Count 4.52 x10^6/uL (3.50-5.40) Hemoglobin 13.1 g/dL (12.0-15.5) Hematocrit 40.7 % (36.0-47.0) Mean Corpuscular Volume 90 fL (79-100) Mean Corpuscular Hemoglobin 29 pg (25-35) Mean Corpuscular Hemoglobin Concent 32 g/dL (31-37) Red Cell Distribution Width 14.3 % (11.5-14.5) Platelet Count 133 x10^3/uL (140-400) Neutrophils (%) (Auto) 57 % (31-73) Lymphocytes (%) (Auto) 31 % (24-48) Monocytes (%) (Auto) 8 % (0-9) Eosinophils (%) (Auto) 4 % (0-3) Basophils (%) (Auto) 1 % (0-3) Neutrophils # (Auto) 3.1 x10^3uL (1.8-7.7) Lymphocytes # (Auto) 1.7 x10^3/uL (1.0-4.8) Monocytes # (Auto) 0.5 x10^3/uL (0.0-1.1) Eosinophils # (Auto) 0.2 x10^3/uL (0.0-0.7) Basophils # (Auto) 0.0 x10^3/uL (0.0-0.2) Sodium Level 142 mmol/L (136-145) Potassium Level 3.3 mmol/L (3.5-5.1) Chloride Level 103 mmol/L (98-107) Carbon Dioxide Level 30 mmol/L (21-32) Anion Gap 9 (6-14) Blood Urea Nitrogen 13 mg/dL (7-20) Creatinine 1.1 mg/dL (0.6-1.0) Estimated GFR (Cockcroft-Gault) 49.4 BUN/Creatinine Ratio 12 (6-20) Glucose Level 132 mg/dL (70-99) Calcium Level 9.6 mg/dL (8.5-10.1) Total Bilirubin 0.4 mg/dL (0.2-1.0) Aspartate Amino Transf (AST/SGOT) 70 U/L (15-37) Alanine Aminotransferase (ALT/SGPT) 53 U/L (14-59) Alkaline Phosphatase 59 U/L (46-116) Total Protein 7.1 g/dL (6.4-8.2) Albumin 3.1 g/dL (3.4-5.0) Albumin/Globulin Ratio 0.8 (1.0-1.7) Test 09/28/18 03:44 09/28/18 07:14 09/28/18 10:34 09/28/18 15:59 Glucose (Fingerstick) 121 mg/dL (70-99) 125 mg/dL (70-99) 157 mg/dL (70-99) 86 mg/dL (70-99) Test 09/28/18 16:00 09/28/18 20:37 09/29/18 05:25 09/29/18 07:37 Urine Color Yellow Urine Clarity Clear Urine pH 6.5 Urine Specific Clements 1.015 Urine Protein 100 mg/dL (NEG-TRACE) Urine Glucose (UA) Negative mg/dL (NEG) Urine Ketones (Stick) Negative mg/dL (NEG) Urine Blood Large (NEG) Urine Nitrite Negative (NEG) Urine Bilirubin Negative (NEG) Urine Urobilinogen Dipstick 1.0 mg/dL (0.2 mg/dL) Urine Leukocyte Esterase Moderate (NEG) Urine RBC 3-5 /HPF (0-2) Urine WBC Tntc /HPF (0-4) Urine Squamous Epithelial Cells Occ /LPF Urine Bacteria Few /HPF (0-FEW) Urine Mucus Slight /LPF Glucose (Fingerstick) 203 mg/dL (70-99) 180 mg/dL (70-99) White Blood Count 5.0 x10^3/uL (4.0-11.0) Red Blood Count 4.30 x10^6/uL (3.50-5.40) Hemoglobin 12.6 g/dL (12.0-15.5) Hematocrit 38.7 % (36.0-47.0) Mean Corpuscular Volume 90 fL (79-100) Mean Corpuscular Hemoglobin 29 pg (25-35) Mean Corpuscular Hemoglobin Concent 33 g/dL (31-37) Red Cell Distribution Width 14.7 % (11.5-14.5) Platelet Count 129 x10^3/uL (140-400) Neutrophils (%) (Auto) 57 % (31-73) Lymphocytes (%) (Auto) 29 % (24-48) Monocytes (%) (Auto) 9 % (0-9) Eosinophils (%) (Auto) 4 % (0-3) Basophils (%) (Auto) 1 % (0-3) Neutrophils # (Auto) 2.9 x10^3uL (1.8-7.7) Lymphocytes # (Auto) 1.5 x10^3/uL (1.0-4.8) Monocytes # (Auto) 0.5 x10^3/uL (0.0-1.1) Eosinophils # (Auto) 0.2 x10^3/uL (0.0-0.7) Basophils # (Auto) 0.0 x10^3/uL (0.0-0.2) Sodium Level 141 mmol/L (136-145) Potassium Level 3.8 mmol/L (3.5-5.1) Chloride Level 102 mmol/L (98-107) Carbon Dioxide Level 30 mmol/L (21-32) Anion Gap 9 (6-14) Blood Urea Nitrogen 14 mg/dL (7-20) Creatinine 1.1 mg/dL (0.6-1.0) Estimated GFR (Cockcroft-Gault) 49.4 Glucose Level 178 mg/dL (70-99) Calcium Level 9.4 mg/dL (8.5-10.1) Laboratory Tests Test 09/28/18 15:59 09/28/18 16:00 09/28/18 20:37 09/29/18 05:25 Glucose (Fingerstick) 86 mg/dL (70-99) 203 mg/dL (70-99) Urine Color Yellow Urine Clarity Clear Urine pH 6.5 Urine Specific Clements 1.015 Urine Protein 100 mg/dL (NEG-TRACE) Urine Glucose (UA) Negative mg/dL (NEG) Urine Ketones (Stick) Negative mg/dL (NEG) Urine Blood Large (NEG) Urine Nitrite Negative (NEG) Urine Bilirubin Negative (NEG) Urine Urobilinogen Dipstick 1.0 mg/dL (0.2 mg/dL) Urine Leukocyte Esterase Moderate (NEG) Urine RBC 3-5 /HPF (0-2) Urine WBC Tntc /HPF (0-4) Urine Squamous Epithelial Cells Occ /LPF Urine Bacteria Few /HPF (0-FEW) Urine Mucus Slight /LPF White Blood Count 5.0 x10^3/uL (4.0-11.0) Red Blood Count 4.30 x10^6/uL (3.50-5.40) Hemoglobin 12.6 g/dL (12.0-15.5) Hematocrit 38.7 % (36.0-47.0) Mean Corpuscular Volume 90 fL (79-100) Mean Corpuscular Hemoglobin 29 pg (25-35) Mean Corpuscular Hemoglobin Concent 33 g/dL (31-37) Red Cell Distribution Width 14.7 % (11.5-14.5) Platelet Count 129 x10^3/uL (140-400) Neutrophils (%) (Auto) 57 % (31-73) Lymphocytes (%) (Auto) 29 % (24-48) Monocytes (%) (Auto) 9 % (0-9) Eosinophils (%) (Auto) 4 % (0-3) Basophils (%) (Auto) 1 % (0-3) Neutrophils # (Auto) 2.9 x10^3uL (1.8-7.7) Lymphocytes # (Auto) 1.5 x10^3/uL (1.0-4.8) Monocytes # (Auto) 0.5 x10^3/uL (0.0-1.1) Eosinophils # (Auto) 0.2 x10^3/uL (0.0-0.7) Basophils # (Auto) 0.0 x10^3/uL (0.0-0.2) Sodium Level 141 mmol/L (136-145) Potassium Level 3.8 mmol/L (3.5-5.1) Chloride Level 102 mmol/L (98-107) Carbon Dioxide Level 30 mmol/L (21-32) Anion Gap 9 (6-14) Blood Urea Nitrogen 14 mg/dL (7-20) Creatinine 1.1 mg/dL (0.6-1.0) Estimated GFR (Cockcroft-Gault) 49.4 Glucose Level 178 mg/dL (70-99) Calcium Level 9.4 mg/dL (8.5-10.1) Test 09/29/18 07:37 Glucose (Fingerstick) 180 mg/dL (70-99) Microbiology 09/25/18 Urine Culture - Final, Complete 09/25/18 Urine Culture Result 1 (QUIQUE) - Final, Complete 09/25/18 Antimicrobic Susceptibility - Final, Complete Medications Current Medications Metoprolol Tartrate (Lopressor Vial) 5 mg 1X ONCE IVP Last administered on at 23:32; Start 09/25/18 at 23:15; Stop 09/25/18 at 23:16; Status DC Fentanyl Citrate (Fentanyl 2ml Vial) 50 mcg 1X ONCE IV Last administered on at 00:01; Start 09/26/18 at 00:00; Stop 09/26/18 at 00:01; Status DC Hydralazine HCl (Apresoline Inj) 10 mg 1X ONCE IVP Last administered on at 00:35; Start 09/26/18 at 00:30; Stop 09/26/18 at 00:31; Status DC Insulin Human Regular (HumuLIN R VIAL) 6 unit 1X ONCE IV Last administered on 09/26/18at 02:20; Start 09/26/18 at 01:45; Stop 09/26/18 at 01:46; Status DC Ondansetron HCl (Zofran) 4 mg PRN Q8HRS PRN IV NAUSEA/VOMITING; Start 09/26/18 at 01:45; Stop 09/27/18 at 01:44; Status DC Fentanyl Citrate (Fentanyl 2ml Vial) 50 mcg PRN Q1HR PRN IV PAIN Last administered on 09/27/18at 00:02; Start 09/26/18 at 01:45; Stop 09/27/18 at 01:44 ; Status DC Acetaminophen (Tylenol) 650 mg PRN Q4HRS PRN PO FEVER; Start 09/26/18 at 01:45 ; Stop 09/27/18 at 01:44; Status DC Nitroglycerin (Nitrostat) 0.4 mg PRN Q5MIN PRN SL CHEST PAIN; Start 09/26/18 at 01:45; Stop 09/27/18 at 01:44; Status DC Insulin Human Lispro (HumaLOG) 0-7 UNITS TIDWMEALS SQ Last administered on 09/26at 12:18; Start 09/26/18 at 08:00; Stop 09/26/18 at 17:12; Status DC Dextrose (Dextrose 50%-Water Syringe) 12.5 gm PRN Q15MIN PRN IV SEE COMMENTS; Start 09/26/18 at 01:45 Ceftriaxone Sodium (Rocephin) 1 gm 1X ONCE IVP Last administered on 09/26/18at 02:20; Start 09/26/18 at 01:45; Stop 09/26/18 at 01:46; Status DC Clonidine HCl (Catapres) 0.1 mg PRN Q8HRS PRN PO HYPERTENSION, SEE COMMENTS Last administered on 09/26/18at 15:23; Start 09/26/18 at 01:45 Labetalol HCl (Normodyne Iv Push) 20 mg 1X ONCE IVP Last administered on at 03:59; Start 09/26/18 at 03:30; Stop 09/26/18 at 03:32; Status DC Diphenhydramine HCl (Benadryl) 25 mg PRN Q6HRS PRN PO ITCHING Last administered on 09/26/18at 04:31; Start 09/26/18 at 04:30 Levofloxacin/ Dextrose 150 ml @ 100 mls/hr Q24H IV ; Start 09/27/18 at 06:00; Stop 09/27/18 at 06:00; Status DC Levofloxacin/ Dextrose 100 ml @ 100 mls/hr Q24H IV Last administered on at 05:58; Start 09/27/18 at 06:00; Stop 09/27/18 at 19:53; Status DC Aspirin (Robert Aspirin) 325 mg DAILY PO Last administered on 09/29/18at 08:33; Start 09/26/18 at 12:00 Metoprolol Succinate (Toprol Xl) 100 mg DAILY PO Last administered on at 12:06; Start 09/26/18 at 12:00; Stop 09/26/18 at 18:29; Status DC Pantoprazole Sodium (Protonix) 40 mg DAILYAC PO Last administered on 09/29/18at 06:22; Start 09/26/18 at 12:00 Trazodone HCl (Desyrel) 50 mg QHS PO Last administered on 09/28/18at 21:21; Start 09/26/18 at 21:00 Trazodone HCl (Desyrel) 100 mg QHS PO ; Start 09/26/18 at 21:00 Citalopram Hydrobromide (CeleXA) 10 mg DAILY PO Last administered on 09/29/18 08:33; Start 09/26/18 at 12:00 Insulin Human Lispro (HumaLOG) 24 units TIDWMEALS SQ Last administered on at 08:39; Start 09/26/18 at 12:00 Insulin Glargine (Lantus) 74 units QHS SQ Last administered on 09/28/18at 21:28 ; Start 09/26/18 at 21:00; Stop 09/28/18 at 21:38; Status DC Levothyroxine Sodium (Synthroid) 250 mcg DAILY06 PO Last administered on at 12:06; Start 09/26/18 at 12:00; Stop 09/26/18 at 17:02; Status DC Losartan Potassium (Cozaar) 100 mg DAILY PO Last administered on 09/29/18 08: 33; Start 09/26/18 at 12:00 Atorvastatin Calcium (Lipitor) 80 mg QHS PO Last administered on 09/28/18at 21: 23; Start 09/26/18 at 21:00 Non-Formulary Medication (Semaglutide (Ozempic)) 0.5 mg QFR SQ ; Start 09/28/18 at 16:00; Status UNV Hydrochlorothiazide (Microzide) 12.5 mg DAILY PO Last administered on at 08:42; Start 09/26/18 at 12:00; Stop 09/27/18 at 10:12; Status DC Iohexol (Omnipaque 350 Mg/ml) 80 ml 1X ONCE IV Last administered on 09/26/18at 13:15; Start 09/26/18 at 13:15; Stop 09/26/18 at 13:16; Status DC Info (CONTRAST GIVEN -- Rx MONITORING) 1 each PRN DAILY PRN MC SEE COMMENTS; Start 09/26/18 at 13:15; Stop 09/28/18 at 13:14; Status DC Magnesium Oxide (Magnesium Oxide) 400 mg 1X ONCE PO Last administered on at 15:23; Start 09/26/18 at 15:00; Stop 09/26/18 at 15:01; Status DC Lactobacillus Rhamnosus (Culturelle) 1 cap BID PO Last administered on 08:33; Start 09/26/18 at 21:00 Hydralazine HCl (Apresoline Inj) 10 mg PRN Q4HRS PRN IVP ELEVATED BP, SEE COMMENTS Last administered on 09/27/18 23:59; Start 09/26/18 at 16:45 Insulin Glargine (Lantus) 10 units QHS SQ ; Start 09/26/18 at 21:00; Status UNV Insulin Human Lispro (HumaLOG) 0-5 UNITS TIDWMEALS SQ Last administered on 09/29 08:40; Start 09/26/18 at 17:00 Dextrose (Dextrose 50%-Water Syringe) 12.5 gm PRN Q15MIN PRN IV SEE COMMENTS; Start 09/26/18 at 16:45; Status UNV Levothyroxine Sodium (Synthroid) 100 mcg ONCE ONCE PO Last administered on 17:46; Start 09/26/18 at 17:30; Stop 09/26/18 at 17:31; Status DC Enoxaparin Sodium (Lovenox 40mg Syringe) 40 mg Q24H SQ Last administered on 17:46; Start 09/26/18 at 17:00; Stop 09/27/18 at 08:33; Status DC Levothyroxine Sodium (Synthroid) 350 mcg DAILY06 PO Last administered on 06:22; Start 09/27/18 at 06:00 Carvedilol (Coreg) 12.5 mg BIDWMEALS PO Last administered on 09/29/18 08:35; Start 09/26/18 at 18:30 Enoxaparin Sodium (Lovenox 60mg Syringe) 60 mg Q12HR SQ Last administered on 08:35; Start 09/27/18 at 09:00 Chlorthalidone (Thalitone) 25 mg DAILY PO Last administered on 09/29/18 08:33 ; Start 09/27/18 at 11:00 Fentanyl Citrate (Fentanyl 2ml Vial) 50 mcg PRN Q2HR PRN IV PAIN SEVERE Last administered on 09/28/18 21:39; Start 09/27/18 at 10:45 Fentanyl Citrate (Fentanyl 2ml Vial) 25 mcg PRN Q2HR PRN IV PAIN MODERATE Last administered on 09/27/18 13:27; Start 09/27/18 at 10:45 Acetaminophen (Tylenol) 650 mg PRN Q6HRS PRN PO MILD - MODERATE PAIN; Start at 11:00 Potassium Chloride (Klor-Con) 40 meq 1X ONCE PO Last administered on at 16:02; Start 09/27/18 at 15:00; Stop 09/27/18 at 15:01; Status DC Potassium Chloride (Klor-Con) 20 meq DAILYWBKFT PO Last administered on 08:34; Start 09/28/18 at 08:00 Lidocaine (Lidoderm) 1 patch DAILY TD Last administered on 09/29/18 08:33; Start 09/27/18 at 15:00 Miscellaneous (Lidoderm Patch Removal) 1 ea QHS MC Last administered on at 21:20; Start 09/27/18 at 21:00 Amlodipine Besylate (Norvasc) 5 mg 1X ONCE PO ; Start 09/27/18 at 15:30; Stop 09/27/18 at 15:31; Status DC Amlodipine Besylate (Norvasc) 10 mg DAILY PO Last administered on 09/29/18 08: 34; Start 09/28/18 at 09:00 Methylprednisolone Acetate (DEPO-Medrol 40MG VIAL) 40 mg 1X ONCE IM Last administered on 09/28/18 09:00; Start 09/27/18 at 17:45; Stop 09/27/18 at 17:46 ; Status DC Methylprednisolone Acetate (DEPO-Medrol 40MG VIAL) 40 mg 1X ONCE IM Last administered on 09/28/18 09:00; Start 09/27/18 at 17:45; Stop 09/27/18 at 17:46 ; Status DC Bupivacaine HCl (Sensorcaine-Mpf 0.25%) 10 ml 1X ONCE IJ Last administered on 09/28/18 09:00; Start 09/27/18 at 17:45; Stop 09/27/18 at 17:46; Status DC Diclofenac Sodium (Voltaren) 1 clayton BID TP Last administered on 09/29/18 08:33 ; Start 09/27/18 at 21:00 Piperacillin Sod/ Tazobactam Sod (Zosyn Per Pharmacy) 1 each PRN DAILY PRN MC SEE COMMENTS; Start 09/27/18 at 19:15 Piperacillin Sod/ Tazobactam Sod 3.375 gm/Sodium Chloride 50 ml @ 100 mls/hr Q6HRS IV Last administered on 09/29/18at 06:22; Start 09/28/18 at 00:00 Potassium Chloride (Klor-Con) 40 meq 1X ONCE PO Last administered on at 14:50; Start 09/28/18 at 14:15; Stop 09/28/18 at 14:29; Status DC Potassium Chloride (Klor-Con) 20 meq DAILYWBKFT PO Last administered on at 08:34; Start 09/29/18 at 08:00 Insulin Glargine (Lantus) 64 units QHS SQ ; Start 09/29/18 at 21:00 Oxycodone/ Acetaminophen (Percocet 5/325) 1 tab PRN Q4HRS PRN PO SEVERE PAIN Last administered on 09/29/18at 08:32; Start 09/28/18 at 21:45 Active Scripts Active Reported Tresiba Flextouch U-200 (Insulin Degludec) 200 Unit/1 Ml Insuln.pen 64 Unit SQ QHS Ozempic (Semaglutide) 0.25 Mg/0.2 Ml Pen.injctr 0.5 Mg SQ QFR Novolog Flexpen (Insulin Aspart) 100 Unit/1 Ml Insuln.pen 24 Unit SQ TIDWMEALS Levothyroxine Sodium 125 Mcg Tablet 250 Mcg PO DAILYAC Trazodone Hcl 100 Mg Tablet 1 Tab PO QHS Trazodone Hcl 50 Mg Tablet 1 Tab PO QHS Protonix (Pantoprazole Sodium) 40 Mg Tablet.dr 1 Tab PO DAILY Crestor (Rosuvastatin Calcium) 20 Mg Tablet 20 Mg PO HS Aspirin 325 Mg Tablet 1 Tab PO DAILY Losartan-Hctz 100-12.5 Mg Tab (Losartan/Hydrochlorothiazide) 1 Each Tablet 1 Tab PO DAILY Metoprolol Succinate ( Xl ) (Metoprolol Succinate) 100 Mg Tab.er.24h 100 Mg Escitalopram Oxalate 10 Mg Tablet 20 Mg PO DAILY Vitals/I & O Vital Sign - Last 24 Hours 09/28/18 09/28/18 09/28/18 09/28/18 11:00 12:41 15:00 18:02 Temp 98.5 98.4 98.5 98.4 Pulse 64 63 61 Resp 18 B/P (MAP) 130/59 (82) 138/56 (83) 130/53 Pulse Ox 94 96 O2 Delivery BiPAP/CPAP Room Air BiPAP/CPAP O2 Flow Rate 2.0 09/28/18 09/28/18 09/28/18 09/28/18 19:15 19:40 21:39 22:10 Temp 98.2 98.2 Pulse 62 Resp B/P (MAP) 141/51 (81) Pulse Ox 94 94 O2 Delivery Room Air Room Air Nasal Cannula BiPAP/CPAP O2 Flow Rate 2.0 09/28/18 09/29/18 09/29/18 09/29/18 23:32 03:25 07:20 08:00 Temp 98.4 98.4 97.9 98.4 98.4 97.9 Pulse 54 52 52 Resp 18 B/P (MAP) 167/69 (101) 164/68 (100) 164/74 (104) Pulse Ox 95 95 96 O2 Delivery BiPAP/CPAP BiPAP/CPAP BiPAP/CPAP Room Air O2 Flow Rate 2.0 09/29/18 09/29/18 09/29/18 09/29/18 08:32 08:33 08:34 08:35 Pulse 52 52 52 Resp 18 B/P (MAP) 164/74 164/74 164/74 Pulse Ox 96 O2 Delivery Room Air O2 Flow Rate 2.0 Intake and Output 09/28/18 09/28/18 09/29/18 14:59 22:59 06:59 Intake Total 600 ml 350 ml 490 ml Output Total 100 ml Balance 600 ml 250 ml 490 ml NIKITA DU MD Sep 29, 2018 10:35
--- NOTE | 2018-09-29 10:43 | PDOC ---
PROGRESS NOTES Subjective Subjective She admits not much pain in her hips,back and knees. Objective Objective Vital Signs Date Time Temp Pulse Resp B/P (MAP) Pulse Ox O2 Delivery O2 Flow Rate FiO2 09/29/18 08:35 52 164/74 09/29/18 08:32 18 96 Room Air 2.0 09/29/18 07:20 97.9 97.9 Intake and Output 09/29/18 07:00 Intake Total 1440 ml Output Total 100 ml Balance 1340 ml Intake Oral 1390 ml IV Total 50 ml Output Urine Total 100 ml # Voids 3 # Bowel Movements 2 Physical Exam Physical Exam She is sitting in bedside chair and comfortable and she remains independent with her mobility and self care. Assessment Assessment Problems Medical Problems: (1) Accelerated hypertension Status: Acute (2) Chest pain Status: Acute (3) Hyperglycemia Status: Acute (4) Pyelonephritis Status: Acute Plan Plan of Care To get her up as tolerated. Comment Review of Relevant I have reviewed the following items jeffrey (where applicable) has been applied. Labs Laboratory Tests Test 09/27/18 12:17 09/27/18 17:13 09/27/18 20:23 09/28/18 03:40 Glucose (Fingerstick) 166 mg/dL (70-99) 150 mg/dL (70-99) 85 mg/dL (70-99) White Blood Count 5.5 x10^3/uL (4.0-11.0) Red Blood Count 4.52 x10^6/uL (3.50-5.40) Hemoglobin 13.1 g/dL (12.0-15.5) Hematocrit 40.7 % (36.0-47.0) Mean Corpuscular Volume 90 fL (79-100) Mean Corpuscular Hemoglobin 29 pg (25-35) Mean Corpuscular Hemoglobin Concent 32 g/dL (31-37) Red Cell Distribution Width 14.3 % (11.5-14.5) Platelet Count 133 x10^3/uL (140-400) Neutrophils (%) (Auto) 57 % (31-73) Lymphocytes (%) (Auto) 31 % (24-48) Monocytes (%) (Auto) 8 % (0-9) Eosinophils (%) (Auto) 4 % (0-3) Basophils (%) (Auto) 1 % (0-3) Neutrophils # (Auto) 3.1 x10^3uL (1.8-7.7) Lymphocytes # (Auto) 1.7 x10^3/uL (1.0-4.8) Monocytes # (Auto) 0.5 x10^3/uL (0.0-1.1) Eosinophils # (Auto) 0.2 x10^3/uL (0.0-0.7) Basophils # (Auto) 0.0 x10^3/uL (0.0-0.2) Sodium Level 142 mmol/L (136-145) Potassium Level 3.3 mmol/L (3.5-5.1) Chloride Level 103 mmol/L (98-107) Carbon Dioxide Level 30 mmol/L (21-32) Anion Gap 9 (6-14) Blood Urea Nitrogen 13 mg/dL (7-20) Creatinine 1.1 mg/dL (0.6-1.0) Estimated GFR (Cockcroft-Gault) 49.4 BUN/Creatinine Ratio 12 (6-20) Glucose Level 132 mg/dL (70-99) Calcium Level 9.6 mg/dL (8.5-10.1) Total Bilirubin 0.4 mg/dL (0.2-1.0) Aspartate Amino Transf (AST/SGOT) 70 U/L (15-37) Alanine Aminotransferase (ALT/SGPT) 53 U/L (14-59) Alkaline Phosphatase 59 U/L (46-116) Total Protein 7.1 g/dL (6.4-8.2) Albumin 3.1 g/dL (3.4-5.0) Albumin/Globulin Ratio 0.8 (1.0-1.7) Test 09/28/18 03:44 09/28/18 07:14 09/28/18 10:34 09/28/18 15:59 Glucose (Fingerstick) 121 mg/dL (70-99) 125 mg/dL (70-99) 157 mg/dL (70-99) 86 mg/dL (70-99) Test 09/28/18 16:00 09/28/18 20:37 09/29/18 05:25 09/29/18 07:37 Urine Color Yellow Urine Clarity Clear Urine pH 6.5 Urine Specific Freer 1.015 Urine Protein 100 mg/dL (NEG-TRACE) Urine Glucose (UA) Negative mg/dL (NEG) Urine Ketones (Stick) Negative mg/dL (NEG) Urine Blood Large (NEG) Urine Nitrite Negative (NEG) Urine Bilirubin Negative (NEG) Urine Urobilinogen Dipstick 1.0 mg/dL (0.2 mg/dL) Urine Leukocyte Esterase Moderate (NEG) Urine RBC 3-5 /HPF (0-2) Urine WBC Tntc /HPF (0-4) Urine Squamous Epithelial Cells Occ /LPF Urine Bacteria Few /HPF (0-FEW) Urine Mucus Slight /LPF Glucose (Fingerstick) 203 mg/dL (70-99) 180 mg/dL (70-99) White Blood Count 5.0 x10^3/uL (4.0-11.0) Red Blood Count 4.30 x10^6/uL (3.50-5.40) Hemoglobin 12.6 g/dL (12.0-15.5) Hematocrit 38.7 % (36.0-47.0) Mean Corpuscular Volume 90 fL (79-100) Mean Corpuscular Hemoglobin 29 pg (25-35) Mean Corpuscular Hemoglobin Concent 33 g/dL (31-37) Red Cell Distribution Width 14.7 % (11.5-14.5) Platelet Count 129 x10^3/uL (140-400) Neutrophils (%) (Auto) 57 % (31-73) Lymphocytes (%) (Auto) 29 % (24-48) Monocytes (%) (Auto) 9 % (0-9) Eosinophils (%) (Auto) 4 % (0-3) Basophils (%) (Auto) 1 % (0-3) Neutrophils # (Auto) 2.9 x10^3uL (1.8-7.7) Lymphocytes # (Auto) 1.5 x10^3/uL (1.0-4.8) Monocytes # (Auto) 0.5 x10^3/uL (0.0-1.1) Eosinophils # (Auto) 0.2 x10^3/uL (0.0-0.7) Basophils # (Auto) 0.0 x10^3/uL (0.0-0.2) Sodium Level 141 mmol/L (136-145) Potassium Level 3.8 mmol/L (3.5-5.1) Chloride Level 102 mmol/L (98-107) Carbon Dioxide Level 30 mmol/L (21-32) Anion Gap 9 (6-14) Blood Urea Nitrogen 14 mg/dL (7-20) Creatinine 1.1 mg/dL (0.6-1.0) Estimated GFR (Cockcroft-Gault) 49.4 Glucose Level 178 mg/dL (70-99) Calcium Level 9.4 mg/dL (8.5-10.1) Laboratory Tests Test 09/28/18 15:59 09/28/18 16:00 09/28/18 20:37 09/29/18 05:25 Glucose (Fingerstick) 86 mg/dL (70-99) 203 mg/dL (70-99) Urine Color Yellow Urine Clarity Clear Urine pH 6.5 Urine Specific Freer 1.015 Urine Protein 100 mg/dL (NEG-TRACE) Urine Glucose (UA) Negative mg/dL (NEG) Urine Ketones (Stick) Negative mg/dL (NEG) Urine Blood Large (NEG) Urine Nitrite Negative (NEG) Urine Bilirubin Negative (NEG) Urine Urobilinogen Dipstick 1.0 mg/dL (0.2 mg/dL) Urine Leukocyte Esterase Moderate (NEG) Urine RBC 3-5 /HPF (0-2) Urine WBC Tntc /HPF (0-4) Urine Squamous Epithelial Cells Occ /LPF Urine Bacteria Few /HPF (0-FEW) Urine Mucus Slight /LPF White Blood Count 5.0 x10^3/uL (4.0-11.0) Red Blood Count 4.30 x10^6/uL (3.50-5.40) Hemoglobin 12.6 g/dL (12.0-15.5) Hematocrit 38.7 % (36.0-47.0) Mean Corpuscular Volume 90 fL (79-100) Mean Corpuscular Hemoglobin 29 pg (25-35) Mean Corpuscular Hemoglobin Concent 33 g/dL (31-37) Red Cell Distribution Width 14.7 % (11.5-14.5) Platelet Count 129 x10^3/uL (140-400) Neutrophils (%) (Auto) 57 % (31-73) Lymphocytes (%) (Auto) 29 % (24-48) Monocytes (%) (Auto) 9 % (0-9) Eosinophils (%) (Auto) 4 % (0-3) Basophils (%) (Auto) 1 % (0-3) Neutrophils # (Auto) 2.9 x10^3uL (1.8-7.7) Lymphocytes # (Auto) 1.5 x10^3/uL (1.0-4.8) Monocytes # (Auto) 0.5 x10^3/uL (0.0-1.1) Eosinophils # (Auto) 0.2 x10^3/uL (0.0-0.7) Basophils # (Auto) 0.0 x10^3/uL (0.0-0.2) Sodium Level 141 mmol/L (136-145) Potassium Level 3.8 mmol/L (3.5-5.1) Chloride Level 102 mmol/L (98-107) Carbon Dioxide Level 30 mmol/L (21-32) Anion Gap 9 (6-14) Blood Urea Nitrogen 14 mg/dL (7-20) Creatinine 1.1 mg/dL (0.6-1.0) Estimated GFR (Cockcroft-Gault) 49.4 Glucose Level 178 mg/dL (70-99) Calcium Level 9.4 mg/dL (8.5-10.1) Test 09/29/18 07:37 Glucose (Fingerstick) 180 mg/dL (70-99) Microbiology 09/25/18 Urine Culture - Final, Complete 09/25/18 Urine Culture Result 1 (QUIQUE) - Final, Complete 09/25/18 Antimicrobic Susceptibility - Final, Complete Medications Current Medications Metoprolol Tartrate (Lopressor Vial) 5 mg 1X ONCE IVP Last administered on at 23:32; Start 09/25/18 at 23:15; Stop 09/25/18 at 23:16; Status DC Fentanyl Citrate (Fentanyl 2ml Vial) 50 mcg 1X ONCE IV Last administered on at 00:01; Start 09/26/18 at 00:00; Stop 09/26/18 at 00:01; Status DC Hydralazine HCl (Apresoline Inj) 10 mg 1X ONCE IVP Last administered on at 00:35; Start 09/26/18 at 00:30; Stop 09/26/18 at 00:31; Status DC Insulin Human Regular (HumuLIN R VIAL) 6 unit 1X ONCE IV Last administered on 09/26/18at 02:20; Start 09/26/18 at 01:45; Stop 09/26/18 at 01:46; Status DC Ondansetron HCl (Zofran) 4 mg PRN Q8HRS PRN IV NAUSEA/VOMITING; Start 09/26/18 at 01:45; Stop 09/27/18 at 01:44; Status DC Fentanyl Citrate (Fentanyl 2ml Vial) 50 mcg PRN Q1HR PRN IV PAIN Last administered on 09/27/18at 00:02; Start 09/26/18 at 01:45; Stop 09/27/18 at 01:44 ; Status DC Acetaminophen (Tylenol) 650 mg PRN Q4HRS PRN PO FEVER; Start 09/26/18 at 01:45 ; Stop 09/27/18 at 01:44; Status DC Nitroglycerin (Nitrostat) 0.4 mg PRN Q5MIN PRN SL CHEST PAIN; Start 09/26/18 at 01:45; Stop 09/27/18 at 01:44; Status DC Insulin Human Lispro (HumaLOG) 0-7 UNITS TIDWMEALS SQ Last administered on 09/26at 12:18; Start 09/26/18 at 08:00; Stop 09/26/18 at 17:12; Status DC Dextrose (Dextrose 50%-Water Syringe) 12.5 gm PRN Q15MIN PRN IV SEE COMMENTS; Start 09/26/18 at 01:45 Ceftriaxone Sodium (Rocephin) 1 gm 1X ONCE IVP Last administered on 09/26/18at 02:20; Start 09/26/18 at 01:45; Stop 09/26/18 at 01:46; Status DC Clonidine HCl (Catapres) 0.1 mg PRN Q8HRS PRN PO HYPERTENSION, SEE COMMENTS Last administered on 09/26/18at 15:23; Start 09/26/18 at 01:45 Labetalol HCl (Normodyne Iv Push) 20 mg 1X ONCE IVP Last administered on at 03:59; Start 09/26/18 at 03:30; Stop 09/26/18 at 03:32; Status DC Diphenhydramine HCl (Benadryl) 25 mg PRN Q6HRS PRN PO ITCHING Last administered on 09/26/18 04:31; Start 09/26/18 at 04:30 Levofloxacin/ Dextrose 150 ml @ 100 mls/hr Q24H IV ; Start 09/27/18 at 06:00; Stop 09/27/18 at 06:00; Status DC Levofloxacin/ Dextrose 100 ml @ 100 mls/hr Q24H IV Last administered on at 05:58; Start 09/27/18 at 06:00; Stop 09/27/18 at 19:53; Status DC Aspirin (Robert Aspirin) 325 mg DAILY PO Last administered on 09/29/18 08:33; Start 09/26/18 at 12:00 Metoprolol Succinate (Toprol Xl) 100 mg DAILY PO Last administered on 12:06; Start 09/26/18 at 12:00; Stop 09/26/18 at 18:29; Status DC Pantoprazole Sodium (Protonix) 40 mg DAILYAC PO Last administered on 09/29/18 06:22; Start 09/26/18 at 12:00 Trazodone HCl (Desyrel) 50 mg QHS PO Last administered on 09/28/18 21:21; Start 09/26/18 at 21:00 Trazodone HCl (Desyrel) 100 mg QHS PO ; Start 09/26/18 at 21:00 Citalopram Hydrobromide (CeleXA) 10 mg DAILY PO Last administered on 09/29/18 08:33; Start 09/26/18 at 12:00 Insulin Human Lispro (HumaLOG) 24 units TIDWMEALS SQ Last administered on 08:39; Start 09/26/18 at 12:00 Insulin Glargine (Lantus) 74 units QHS SQ Last administered on 09/28/18 21:28 ; Start 09/26/18 at 21:00; Stop 09/28/18 at 21:38; Status DC Levothyroxine Sodium (Synthroid) 250 mcg DAILY06 PO Last administered on 12:06; Start 09/26/18 at 12:00; Stop 09/26/18 at 17:02; Status DC Losartan Potassium (Cozaar) 100 mg DAILY PO Last administered on 09/29/18 08: 33; Start 09/26/18 at 12:00 Atorvastatin Calcium (Lipitor) 80 mg QHS PO Last administered on 09/28/18 21: 23; Start 09/26/18 at 21:00 Non-Formulary Medication (Semaglutide (Ozempic)) 0.5 mg QFR SQ ; Start 09/28/18 at 16:00; Status UNV Hydrochlorothiazide (Microzide) 12.5 mg DAILY PO Last administered on 08:42; Start 09/26/18 at 12:00; Stop 09/27/18 at 10:12; Status DC Iohexol (Omnipaque 350 Mg/ml) 80 ml 1X ONCE IV Last administered on 09/26/18 13:15; Start 09/26/18 at 13:15; Stop 09/26/18 at 13:16; Status DC Info (CONTRAST GIVEN -- Rx MONITORING) 1 each PRN DAILY PRN MC SEE COMMENTS; Start 09/26/18 at 13:15; Stop 09/28/18 at 13:14; Status DC Magnesium Oxide (Magnesium Oxide) 400 mg 1X ONCE PO Last administered on 15:23; Start 09/26/18 at 15:00; Stop 09/26/18 at 15:01; Status DC Lactobacillus Rhamnosus (Culturelle) 1 cap BID PO Last administered on 08:33; Start 09/26/18 at 21:00 Hydralazine HCl (Apresoline Inj) 10 mg PRN Q4HRS PRN IVP ELEVATED BP, SEE COMMENTS Last administered on 09/27/18at 23:59; Start 09/26/18 at 16:45 Insulin Glargine (Lantus) 10 units QHS SQ ; Start 09/26/18 at 21:00; Status UNV Insulin Human Lispro (HumaLOG) 0-5 UNITS TIDWMEALS SQ Last administered on 09/29 08:40; Start 09/26/18 at 17:00 Dextrose (Dextrose 50%-Water Syringe) 12.5 gm PRN Q15MIN PRN IV SEE COMMENTS; Start 09/26/18 at 16:45; Status UNV Levothyroxine Sodium (Synthroid) 100 mcg ONCE ONCE PO Last administered on 17:46; Start 09/26/18 at 17:30; Stop 09/26/18 at 17:31; Status DC Enoxaparin Sodium (Lovenox 40mg Syringe) 40 mg Q24H SQ Last administered on 17:46; Start 09/26/18 at 17:00; Stop 09/27/18 at 08:33; Status DC Levothyroxine Sodium (Synthroid) 350 mcg DAILY06 PO Last administered on 06:22; Start 09/27/18 at 06:00 Carvedilol (Coreg) 12.5 mg BIDWMEALS PO Last administered on 09/29/18 08:35; Start 09/26/18 at 18:30 Enoxaparin Sodium (Lovenox 60mg Syringe) 60 mg Q12HR SQ Last administered on 08:35; Start 09/27/18 at 09:00 Chlorthalidone (Thalitone) 25 mg DAILY PO Last administered on 09/29/18 08:33 ; Start 09/27/18 at 11:00 Fentanyl Citrate (Fentanyl 2ml Vial) 50 mcg PRN Q2HR PRN IV PAIN SEVERE Last administered on 09/28/18 21:39; Start 09/27/18 at 10:45 Fentanyl Citrate (Fentanyl 2ml Vial) 25 mcg PRN Q2HR PRN IV PAIN MODERATE Last administered on 09/27/18 13:27; Start 09/27/18 at 10:45 Acetaminophen (Tylenol) 650 mg PRN Q6HRS PRN PO MILD - MODERATE PAIN; Start at 11:00 Potassium Chloride (Klor-Con) 40 meq 1X ONCE PO Last administered on 16:02; Start 09/27/18 at 15:00; Stop 09/27/18 at 15:01; Status DC Potassium Chloride (Klor-Con) 20 meq DAILYWBKFT PO Last administered on 08:34; Start 09/28/18 at 08:00 Lidocaine (Lidoderm) 1 patch DAILY TD Last administered on 09/29/18 08:33; Start 09/27/18 at 15:00 Miscellaneous (Lidoderm Patch Removal) 1 ea QHS MC Last administered on 21:20; Start 09/27/18 at 21:00 Amlodipine Besylate (Norvasc) 5 mg 1X ONCE PO ; Start 09/27/18 at 15:30; Stop 09/27/18 at 15:31; Status DC Amlodipine Besylate (Norvasc) 10 mg DAILY PO Last administered on 09/29/18 08: 34; Start 09/28/18 at 09:00 Methylprednisolone Acetate (DEPO-Medrol 40MG VIAL) 40 mg 1X ONCE IM Last administered on 09/28/18 09:00; Start 09/27/18 at 17:45; Stop 09/27/18 at 17:46 ; Status DC Methylprednisolone Acetate (DEPO-Medrol 40MG VIAL) 40 mg 1X ONCE IM Last administered on 09/28/18 09:00; Start 09/27/18 at 17:45; Stop 09/27/18 at 17:46 ; Status DC Bupivacaine HCl (Sensorcaine-Mpf 0.25%) 10 ml 1X ONCE IJ Last administered on 09/28/18 09:00; Start 09/27/18 at 17:45; Stop 09/27/18 at 17:46; Status DC Diclofenac Sodium (Voltaren) 1 clayton BID TP Last administered on 09/29/18 08:33 ; Start 09/27/18 at 21:00 Piperacillin Sod/ Tazobactam Sod (Zosyn Per Pharmacy) 1 each PRN DAILY PRN MC SEE COMMENTS; Start 09/27/18 at 19:15 Piperacillin Sod/ Tazobactam Sod 3.375 gm/Sodium Chloride 50 ml @ 100 mls/hr Q6HRS IV Last administered on 09/29/18 06:22; Start 09/28/18 at 00:00 Potassium Chloride (Klor-Con) 40 meq 1X ONCE PO Last administered on at 14:50; Start 09/28/18 at 14:15; Stop 09/28/18 at 14:29; Status DC Potassium Chloride (Klor-Con) 20 meq DAILYWBKFT PO Last administered on at 08:34; Start 09/29/18 at 08:00 Insulin Glargine (Lantus) 64 units QHS SQ ; Start 09/29/18 at 21:00 Oxycodone/ Acetaminophen (Percocet 5/325) 1 tab PRN Q4HRS PRN PO SEVERE PAIN Last administered on 09/29/18at 08:32; Start 09/28/18 at 21:45 Active Scripts Active Reported Tresiba Flextouch U-200 (Insulin Degludec) 200 Unit/1 Ml Insuln.pen 64 Unit SQ QHS Ozempic (Semaglutide) 0.25 Mg/0.2 Ml Pen.injctr 0.5 Mg SQ QFR Novolog Flexpen (Insulin Aspart) 100 Unit/1 Ml Insuln.pen 24 Unit SQ TIDWMEALS Levothyroxine Sodium 125 Mcg Tablet 250 Mcg PO DAILYAC Trazodone Hcl 100 Mg Tablet 1 Tab PO QHS Trazodone Hcl 50 Mg Tablet 1 Tab PO QHS Protonix (Pantoprazole Sodium) 40 Mg Tablet.dr 1 Tab PO DAILY Crestor (Rosuvastatin Calcium) 20 Mg Tablet 20 Mg PO HS Aspirin 325 Mg Tablet 1 Tab PO DAILY Losartan-Hctz 100-12.5 Mg Tab (Losartan/Hydrochlorothiazide) 1 Each Tablet 1 Tab PO DAILY Metoprolol Succinate ( Xl ) (Metoprolol Succinate) 100 Mg Tab.er.24h 100 Mg Escitalopram Oxalate 10 Mg Tablet 20 Mg PO DAILY Vitals/I & O Vital Sign - Last 24 Hours 09/28/18 09/28/18 09/28/18 09/28/18 11:00 12:41 15:00 18:02 Temp 98.5 98.4 98.5 98.4 Pulse 64 63 61 Resp 18 18 B/P (MAP) 130/59 (82) 138/56 (83) 130/53 Pulse Ox 94 96 O2 Delivery BiPAP/CPAP Room Air BiPAP/CPAP O2 Flow Rate 2.0 09/28/18 09/28/18 09/28/18 09/28/18 19:15 19:40 21:39 22:10 Temp 98.2 98.2 Pulse 62 Resp 19 18 B/P (MAP) 141/51 (81) Pulse Ox 94 94 O2 Delivery Room Air Room Air Nasal Cannula BiPAP/CPAP O2 Flow Rate 2.0 09/28/18 09/29/18 09/29/18 09/29/18 23:32 03:25 07:20 08:00 Temp 98.4 98.4 97.9 98.4 98.4 97.9 Pulse 54 52 52 Resp 18 18 18 B/P (MAP) 167/69 (101) 164/68 (100) 164/74 (104) Pulse Ox 95 95 96 O2 Delivery BiPAP/CPAP BiPAP/CPAP BiPAP/CPAP Room Air O2 Flow Rate 2.0 09/29/18 09/29/18 09/29/18 09/29/18 08:32 08:33 08:34 08:35 Pulse 52 52 52 Resp 18 B/P (MAP) 164/74 164/74 164/74 Pulse Ox 96 O2 Delivery Room Air O2 Flow Rate 2.0 Intake and Output 09/28/18 09/28/18 09/29/18 15:00 23:00 07:00 Intake Total 600 ml 350 ml 490 ml Output Total 100 ml Balance 600 ml 250 ml 490 ml MARYLIN CERVANTES MD Sep 29, 2018 10:42
[2018-09-29 11:00] VITALS: BP 135/64
[2018-09-29 15:00] VITALS: BP 136/63
[2018-09-29 19:57] VITALS: BP 124/52
[2018-09-29] MEDS: PATCH REMOVAL. MC SCH (21:00)
[2018-09-29] MEDS: traZODone 50 MG TABLET. PO SCH (21:00)
[2018-09-29] MEDS: ATORVASTATIN CALCIUM 40 MG TABLET. PO SCH (21:36)
[2018-09-29] MEDS: traZODone 100 MG TABLET. PO SCH (21:36)
[2018-09-29] MEDS: AMOXICILLIN/K CLAV 500/125MG TABLET. PO SCH (21:36)
[2018-09-29] MEDS: INSULIN GLARGINE 300 UNITS/3 ML INSULN.PEN. SQ SCH (21:44)
[2018-09-29 22:19] VITALS: BP 146/57
[2018-09-30] MEDS: diphenhydrAMINE HCL 25 MG CAPSULE PO PRN (00:17)
[2018-09-30] MEDS: oxyCODONE/APAP 5/325 1 TAB TABLET PO PRN ×2 (00:19→12:51)
[2018-09-30 03:09] VITALS: BP 108/54
[2018-09-30 04:06] LABS: BASO % 1 % (0-3); EOS # 0.2 x10^3/uL (0.0-0.7); EOS % 4 % (0-3); HEMATOCRIT 40.1 % (36.0-47.0); LYMPH # 1.6 x10^3/uL (1.0-4.8); LYMPH % 29 % (24-48); MEAN CORPUSCULAR HEMOGLOBIN 29 pg (25-35); MEAN CORPUSCULAR HGB CONC 33 g/dL (31-37); MEAN CORPUSCULAR VOLUME 90 fL (79-100); MONO # 0.5 x10^3/uL (0.0-1.1); MONO % 10 % (0-9); NEUT % 57 % (31-73); PLATELET COUNT 128 x10^3/uL (140-400); RED BLOOD COUNT 4.44 x10^6/uL (3.50-5.40); RED CELL DISTRIBUTION WIDTH 14.3 % (11.5-14.5); WHITE BLOOD COUNT 5.4 x10^3/uL (4.0-11.0)
[2018-09-30] MEDS: LEVOTHYROXINE 100 MCG TABLET PO SCH (06:04)
[2018-09-30 06:38] LABS: CALCIUM 9.6 mg/dL (8.5-10.1); CREATININE 1.1 mg/dL (0.6-1.0); GFR 49.4; POTASSIUM 3.8 mmol/L (3.5-5.1)
[2018-09-30 07:05] VITALS: BP 174/71
[2018-09-30] MEDS: LIDOCAINE (700MG/PATCH) PATCH. TD SCH (08:57)
[2018-09-30] MEDS: AMOXICILLIN/K CLAV 500/125MG TABLET. PO SCH ×2 (08:57→21:30)
[2018-09-30] MEDS: LACTOBACILLUS RHAMNOSUS GG 1 CAPSULE. PO SCH ×2 (08:57→21:30)
[2018-09-30] MEDS: DICLOFENAC SODIUM 1% TOPICAL GEL 100GM TUBE. TP SCH ×2 (08:57→21:30)
[2018-09-30] MEDS: ASPIRIN 325 MG TABLET PO SCH (08:58)
[2018-09-30] MEDS: amLODIPine BESYLATE 10 MG TABLET PO SCH (08:58)
[2018-09-30] MEDS: PANTOPRAZOLE 40 MG TABLET.DR. PO SCH (08:58)
[2018-09-30] MEDS: CHLORTHALIDONE 25 MG TABLET. PO SCH (08:58)
[2018-09-30] MEDS: CARVEDILOL 12.5 MG TABLET. PO SCH ×2 (08:58→18:00)
[2018-09-30] MEDS: POTASSIUM CHLORIDE 20 MEQ TABLET.ER. PO SCH (08:58)
[2018-09-30] MEDS: CITALOPRAM 10 MG TABLET. PO SCH (08:58)
[2018-09-30] MEDS: LOSARTAN POTASSIUM 50 MG TABLET. PO SCH (08:59)
[2018-09-30] MEDS: INSULIN LISPRO 300 UNITS/3 ML INSULN.PEN. SQ SCH ×7 (09:00→21:32)
[2018-09-30 11:39] VITALS: BP 138/57
--- NOTE | 2018-09-30 13:49 | PDOC ---
Infectious Disease Note Subjective Subjective c/o persistent right flank pain, less intense though Finished a walking BM x 3 Abdominal pain, better Denies F/C/S/body aches Denies N/V/D Denies CP/cough/SOA ROS ROS per HPI otherwise neg Vital Sign Vital Signs Vital Signs Date Time Temp Pulse Resp B/P (MAP) Pulse Ox O2 Delivery O2 Flow Rate FiO2 09/30/18 12:51 18 95 Room Air 1.0 09/30/18 11:39 97.3 54 138/57 (84) 97.3 Physical Exam PHYSICAL EXAM General: Sitting on the side of the bed, alert, relaxed HEENT: DEVONTE. Oropharynx dry, no thrush. Lungs : clear bilaterally Heart : S1, S2 Abdomen: Obese, soft, NT BACK: + CVA tender, right Ext : No gross edema , no cyanosis HALF SOLE FITTER Alert and oriented x 3 SKIN; No rash PIV Labs Lab Laboratory Tests Test 09/29/18 17:08 09/29/18 20:18 09/30/18 03:20 09/30/18 07:11 Glucose (Fingerstick) 117 mg/dL (70-99) 148 mg/dL (70-99) 162 mg/dL (70-99) White Blood Count 5.4 x10^3/uL (4.0-11.0) Red Blood Count 4.44 x10^6/uL (3.50-5.40) Hemoglobin 13.0 g/dL (12.0-15.5) Hematocrit 40.1 % (36.0-47.0) Mean Corpuscular Volume 90 fL (79-100) Mean Corpuscular Hemoglobin 29 pg (25-35) Mean Corpuscular Hemoglobin Concent 33 g/dL (31-37) Red Cell Distribution Width 14.3 % (11.5-14.5) Platelet Count 128 x10^3/uL (140-400) Neutrophils (%) (Auto) 57 % (31-73) Lymphocytes (%) (Auto) 29 % (24-48) Monocytes (%) (Auto) 10 % (0-9) Eosinophils (%) (Auto) 4 % (0-3) Basophils (%) (Auto) 1 % (0-3) Neutrophils # (Auto) 3.0 x10^3uL (1.8-7.7) Lymphocytes # (Auto) 1.6 x10^3/uL (1.0-4.8) Monocytes # (Auto) 0.5 x10^3/uL (0.0-1.1) Eosinophils # (Auto) 0.2 x10^3/uL (0.0-0.7) Basophils # (Auto) 0.0 x10^3/uL (0.0-0.2) Sodium Level 140 mmol/L (136-145) Potassium Level 3.8 mmol/L (3.5-5.1) Chloride Level 102 mmol/L (98-107) Carbon Dioxide Level 30 mmol/L (21-32) Anion Gap 8 (6-14) Blood Urea Nitrogen 14 mg/dL (7-20) Creatinine 1.1 mg/dL (0.6-1.0) Estimated GFR (Cockcroft-Gault) 49.4 Glucose Level 188 mg/dL (70-99) Calcium Level 9.6 mg/dL (8.5-10.1) Test 09/30/18 12:03 Glucose (Fingerstick) 222 mg/dL (70-99) Micro URINE CULTURE RES 1 Final Proteus mirabilis 10,000-25,000 colony forming units per mL Cefazolin with an QUIQUE <=16 predicts susceptibility to the oral agents cefaclor, cefdinir, cefpodoxime, cefprozil, cefuroxime, cephalexin, and loracarbef when used for therapy of uncomplicated urinary tract infections due to E. coli, Klebsiella pneumoniae, and Proteus mirabilis. ANTIMICROBIAL SUSCEPTIBILITY Final Comment S = Susceptible; I = Intermediate; R = Resistant P = Positive; N = Negative MICS are expressed in micrograms per mL Antibiotic RSLT#1 RSLT#2 RSLT#3 RSLT#4 Amoxicillin/Clavulanic Acid S<=2 Ampicillin S<=2 Cefazolin S Cefepime S<=0.12 Ceftriaxone S<=0.25 Cefuroxime S =2 Ciprofloxacin S<=0.25 Ertapenem S<=0.12 Gentamicin S<=1 Levofloxacin S<=0.12 Meropenem S =0.5 Nitrofurantoin R =256 Piperacillin/Tazobactam S<=4 Tetracycline R>=16 Tobramycin S<=1 Trimethoprim/Sulfa S<=20 09/28. URINE CULTURE RES 1 Final No growth Objective Assessment UTI Proteus, 09/25 Allergies/intolerances: Rash from Ceftriaxone this admission. Has tolerated Zosyn well in the past. Tendinitis from ? Levaquin Extensive obstructive uropathy from nephrolithiasis. Large 3.2 cm in width in right renal collecting system with chronic inflammation or scarring HTN Urgency resolved Protein calorie malnutrition Atypical Chest pain DM Hypothyroidism H/O UTIs in the past Hepatic steatosis Morbid obesity KARENA H/O E coli urosepsis 10/2017 H/O proteus bacteremia 08/2016 Dilated ascending aorta 4.7 cm Thrombocytopenia Plan Plan of Care Now on Augmentin Previously on Rocephin, Levaquin, Zosyn Until anatomic abnormality is not resolved pt remains at risk of recurrent utis /sepsis due to large rt renal staghorn calculi Urology evaluated pt and she is not a candidate for ESWL or PCNL , will need surgery as outpt Pain management per primary Cont supportive care OT/PT Anticipating discharge to SNF tomorrow Cont Augmentin until f/u with urology ID to sign off Attending Co-Sign Attending Co-Sign The patient was seen and interviewed as well as examined at the bedside. The chart was reviewed. The case was discussed. Agree with the plan of care. IAIN JUNIOR APRN Sep 30, 2018 13:49 THOM BLACKWOOD MD Sep 30, 2018 14:54
--- NOTE | 2018-09-30 14:48 | PDOC ---
PROGRESS NOTES History of Present Illness History of Present Illness Assessment/Plan Assessment/Plan IMPRESSION 1. CHEST PAIN 2. SEPSIS SEC TO ACUTE PYELONEPHRITIS proteus isolated several moderate sized calculi in the right renal collecting system and a staghorn-type configuration. The largest of these measures 3.2 cm in width. There is no associated hydronephrosis. There is streaky increased density in the parapelvic fat on the right suggesting chronic inflammation or scarring. There are smaller nonobstructing intrarenal calculi on the left. There is bilateral renal cortical scarring, more so on the right. 3. MORBID OBESITY, EXTREME 4. Stable aneurysmal dilatation of the ascending aorta. There is dilatation of the ascending aorta. It measures 4.7 cm in greatest width on the coronal images. There has been no significant change since 02/06/2017. 5. Bilateral intrarenal calculi, worse on the right. 6. UNTREATED HYPOTHYROID STATE 7. Metabolic syndrome 8. UNCONTROLLED DIABETES 9. several large stones that will require either staged ureteroscopy or percutaneous approach. 10. hematuria PLAN BLOOD AND URINE CULTURES po ANTIBIOTICS CARDIOLOGY CONSULT REVIEWED ECHO UROLOGY FOLLOWING RE STAGHORN RENAL CALCULUS synthroid 100mcg po daily weight loss needed Lantus 10units sq q hs SS INSULIN DVT PROPHYLAXIS LEFT LOWER BACK PAIN SLOW TO IMPROVE proceed with injecting painful left trochanteric bursa and sacroiliac joint INJ to help ease her pain.refused by pt pt/ot continue augmentin until seen at [facility] may need extensive rx of stone at [facility] IN NEAR FUTURE/// Until anatomic abnormality is not resolved pt remains at risk of recurrent utis /sepsis due to large rt renal staghorn calculi 26 MIN PT EXAM, CHART REVIEW, > 50% TIME SPENT WITH PT EXAM, CHART REVIEW, PT CARE COORDINATION Vitals Vitals Vital Signs Date Time Temp Pulse Resp B/P (MAP) Pulse Ox O2 Delivery O2 Flow Rate FiO2 09/30/18 14:20 95 Room Air 1.0 09/30/18 12:51 18 09/30/18 11:39 97.3 54 138/57 (84) 97.3 Physical Exam Physical Exam General: Sitting on the side of the bed, alert, relaxed HEENT: DEVON[place]. Oropharynx dry, no thrush. Lungs : clear bilaterally Heart : S1, S2 Abdomen: Obese, soft, NT BACK: + CVA tender, right Ext : No gross edema , no cyanosis [employer] Alert and oriented x 3 SKIN; No rash PIV General: Alert, Oriented X3, Cooperative, No acute distress, mild distress Heart: Regular rate (SR), Normal S1, Normal S2, Other (2/6 systolic murmur to LLS border) Lungs: Clear Abdomen: Normal bowel sounds, Soft, No hepatosplenomegaly Extremities: No clubbing, No cyanosis, Other (trace to 1+ pitting leg edema) Skin: No breakdown, No significant lesion Labs LABS URINE CULTURE Final Final report URINE CULTURE RES 1 Final Proteus mirabilis 10,000-25,000 colony forming units per mL Cefazolin with an QUIQUE <=16 predicts susceptibility to the oral agents cefaclor, cefdinir, cefpodoxime, cefprozil, cefuroxime, cephalexin, and loracarbef when used for therapy of uncomplicated urinary tract infections due to E. coli, Klebsiella pneumoniae, and Proteus mirabilis. ANTIMICROBIAL SUSCEPTIBILITY Final Comment S = Susceptible; I = Intermediate; R = Resistant P = Positive; N = Negative MICS are expressed in micrograms per mL Antibiotic RSLT#1 RSLT#2 RSLT#3 RSLT#4 Amoxicillin/Clavulanic Acid S<=2 Ampicillin S<=2 Cefazolin S Cefepime S<=0.12 Ceftriaxone S<=0.25 Cefuroxime S =2 Ciprofloxacin S<=0.25 Ertapenem S<=0.12 Gentamicin S<=1 Levofloxacin S<=0.12 Meropenem S =0.5 Nitrofurantoin R =256 Piperacillin/Tazobactam S<=4 Tetracycline R>=16 Tobramycin S<=1 Trimethoprim/Sulfa S<=20 Performed at: DA - [facility] [address], [place], [place] [id number] [place]about: VELVET Sweet MD, Phone: [phone] Laboratory Tests Test 09/29/18 17:08 09/29/18 20:18 09/30/18 03:20 09/30/18 07:11 Glucose (Fingerstick) 117 mg/dL (70-99) 148 mg/dL (70-99) 162 mg/dL (70-99) White Blood Count 5.4 x10^3/uL (4.0-11.0) Red Blood Count 4.44 x10^6/uL (3.50-5.40) Hemoglobin 13.0 g/dL (12.0-15.5) Hematocrit 40.1 % (36.0-47.0) Mean Corpuscular Volume 90 fL (79-100) Mean Corpuscular Hemoglobin 29 pg (25-35) Mean Corpuscular Hemoglobin Concent 33 g/dL (31-37) Red Cell Distribution Width 14.3 % (11.5-14.5) Platelet Count 128 x10^3/uL (140-400) Neutrophils (%) (Auto) 57 % (31-73) Lymphocytes (%) (Auto) 29 % (24-48) Monocytes (%) (Auto) 10 % (0-9) Eosinophils (%) (Auto) 4 % (0-3) Basophils (%) (Auto) 1 % (0-3) Neutrophils # (Auto) 3.0 x10^3uL (1.8-7.7) Lymphocytes # (Auto) 1.6 x10^3/uL (1.0-4.8) Monocytes # (Auto) 0.5 x10^3/uL (0.0-1.1) Eosinophils # (Auto) 0.2 x10^3/uL (0.0-0.7) Basophils # (Auto) 0.0 x10^3/uL (0.0-0.2) Sodium Level 140 mmol/L (136-145) Potassium Level 3.8 mmol/L (3.5-5.1) Chloride Level 102 mmol/L (98-107) Carbon Dioxide Level 30 mmol/L (21-32) Anion Gap 8 (6-14) Blood Urea Nitrogen 14 mg/dL (7-20) Creatinine 1.1 mg/dL (0.6-1.0) Estimated GFR (Cockcroft-Gault) 49.4 Glucose Level 188 mg/dL (70-99) Calcium Level 9.6 mg/dL (8.5-10.1) Test 09/30/18 12:03 Glucose (Fingerstick) 222 mg/dL (70-99) Assessment and Plan Assessmemt and Plan Problems Medical Problems: (1) Accelerated hypertension Status: Acute (2) Chest pain Status: Acute (3) Hyperglycemia Status: Acute (4) Pyelonephritis Status: Acute Comment Review of Relevant I have reviewed the following items jeffrey (where applicable) has been applied. Labs Laboratory Tests Test 09/28/18 15:59 09/28/18 16:00 09/28/18 20:37 09/29/18 05:25 Glucose (Fingerstick) 86 mg/dL (70-99) 203 mg/dL (70-99) Urine Color Yellow Urine Clarity Clear Urine pH 6.5 Urine Specific [place] 1.015 Urine Protein 100 mg/dL (NEG-TRACE) Urine Glucose (UA) Negative mg/dL (NEG) Urine Ketones (Stick) Negative mg/dL (NEG) Urine Blood Large (NEG) Urine Nitrite Negative (NEG) Urine Bilirubin Negative (NEG) Urine Urobilinogen Dipstick 1.0 mg/dL (0.2 mg/dL) Urine Leukocyte Esterase Moderate (NEG) Urine RBC 3-5 /HPF (0-2) Urine WBC Tntc /HPF (0-4) Urine Squamous Epithelial Cells Occ /LPF Urine Bacteria Few /HPF (0-FEW) Urine Mucus Slight /LPF White Blood Count 5.0 x10^3/uL (4.0-11.0) Red Blood Count 4.30 x10^6/uL (3.50-5.40) Hemoglobin 12.6 g/dL (12.0-15.5) Hematocrit 38.7 % (36.0-47.0) Mean Corpuscular Volume 90 fL (79-100) Mean Corpuscular Hemoglobin 29 pg (25-35) Mean Corpuscular Hemoglobin Concent 33 g/dL (31-37) Red Cell Distribution Width 14.7 % (11.5-14.5) Platelet Count 129 x10^3/uL (140-400) Neutrophils (%) (Auto) 57 % (31-73) Lymphocytes (%) (Auto) 29 % (24-48) Monocytes (%) (Auto) 9 % (0-9) Eosinophils (%) (Auto) 4 % (0-3) Basophils (%) (Auto) 1 % (0-3) Neutrophils # (Auto) 2.9 x10^3uL (1.8-7.7) Lymphocytes # (Auto) 1.5 x10^3/uL (1.0-4.8) Monocytes # (Auto) 0.5 x10^3/uL (0.0-1.1) Eosinophils # (Auto) 0.2 x10^3/uL (0.0-0.7) Basophils # (Auto) 0.0 x10^3/uL (0.0-0.2) Sodium Level 141 mmol/L (136-145) Potassium Level 3.8 mmol/L (3.5-5.1) Chloride Level 102 mmol/L (98-107) Carbon Dioxide Level 30 mmol/L (21-32) Anion Gap 9 (6-14) Blood Urea Nitrogen 14 mg/dL (7-20) Creatinine 1.1 mg/dL (0.6-1.0) Estimated GFR (Cockcroft-Gault) 49.4 Glucose Level 178 mg/dL (70-99) Calcium Level 9.4 mg/dL (8.5-10.1) Test 09/29/18 07:37 09/29/18 11:55 09/29/18 17:08 09/29/18 20:18 Glucose (Fingerstick) 180 mg/dL (70-99) 162 mg/dL (70-99) 117 mg/dL (70-99) 148 mg/dL (70-99) Test 09/30/18 03:20 09/30/18 07:11 09/30/18 12:03 White Blood Count 5.4 x10^3/uL (4.0-11.0) Red Blood Count 4.44 x10^6/uL (3.50-5.40) Hemoglobin 13.0 g/dL (12.0-15.5) Hematocrit 40.1 % (36.0-47.0) Mean Corpuscular Volume 90 fL (79-100) Mean Corpuscular Hemoglobin 29 pg (25-35) Mean Corpuscular Hemoglobin Concent 33 g/dL (31-37) Red Cell Distribution Width 14.3 % (11.5-14.5) Platelet Count 128 x10^3/uL (140-400) Neutrophils (%) (Auto) 57 % (31-73) Lymphocytes (%) (Auto) 29 % (24-48) Monocytes (%) (Auto) 10 % (0-9) Eosinophils (%) (Auto) 4 % (0-3) Basophils (%) (Auto) 1 % (0-3) Neutrophils # (Auto) 3.0 x10^3uL (1.8-7.7) Lymphocytes # (Auto) 1.6 x10^3/uL (1.0-4.8) Monocytes # (Auto) 0.5 x10^3/uL (0.0-1.1) Eosinophils # (Auto) 0.2 x10^3/uL (0.0-0.7) Basophils # (Auto) 0.0 x10^3/uL (0.0-0.2) Sodium Level 140 mmol/L (136-145) Potassium Level 3.8 mmol/L (3.5-5.1) Chloride Level 102 mmol/L (98-107) Carbon Dioxide Level 30 mmol/L (21-32) Anion Gap 8 (6-14) Blood Urea Nitrogen 14 mg/dL (7-20) Creatinine 1.1 mg/dL (0.6-1.0) Estimated GFR (Cockcroft-Gault) 49.4 Glucose Level 188 mg/dL (70-99) Calcium Level 9.6 mg/dL (8.5-10.1) Glucose (Fingerstick) 162 mg/dL (70-99) 222 mg/dL (70-99) Laboratory Tests Test 09/29/18 17:08 09/29/18 20:18 09/30/18 03:20 09/30/18 07:11 Glucose (Fingerstick) 117 mg/dL (70-99) 148 mg/dL (70-99) 162 mg/dL (70-99) White Blood Count 5.4 x10^3/uL (4.0-11.0) Red Blood Count 4.44 x10^6/uL (3.50-5.40) Hemoglobin 13.0 g/dL (12.0-15.5) Hematocrit 40.1 % (36.0-47.0) Mean Corpuscular Volume 90 fL (79-100) Mean Corpuscular Hemoglobin 29 pg (25-35) Mean Corpuscular Hemoglobin Concent 33 g/dL (31-37) Red Cell Distribution Width 14.3 % (11.5-14.5) Platelet Count 128 x10^3/uL (140-400) Neutrophils (%) (Auto) 57 % (31-73) Lymphocytes (%) (Auto) 29 % (24-48) Monocytes (%) (Auto) 10 % (0-9) Eosinophils (%) (Auto) 4 % (0-3) Basophils (%) (Auto) 1 % (0-3) Neutrophils # (Auto) 3.0 x10^3uL (1.8-7.7) Lymphocytes # (Auto) 1.6 x10^3/uL (1.0-4.8) Monocytes # (Auto) 0.5 x10^3/uL (0.0-1.1) Eosinophils # (Auto) 0.2 x10^3/uL (0.0-0.7) Basophils # (Auto) 0.0 x10^3/uL (0.0-0.2) Sodium Level 140 mmol/L (136-145) Potassium Level 3.8 mmol/L (3.5-5.1) Chloride Level 102 mmol/L (98-107) Carbon Dioxide Level 30 mmol/L (21-32) Anion Gap 8 (6-14) Blood Urea Nitrogen 14 mg/dL (7-20) Creatinine 1.1 mg/dL (0.6-1.0) Estimated GFR (Cockcroft-Gault) 49.4 Glucose Level 188 mg/dL (70-99) Calcium Level 9.6 mg/dL (8.5-10.1) Test 09/30/18 12:03 Glucose (Fingerstick) 222 mg/dL (70-99) Microbiology 09/28/18 Urine Culture - Final, Complete 09/28/18 Urine Culture Result 1 (QUIQUE) - Final, Complete Medications Current Medications Metoprolol Tartrate (Lopressor Vial) 5 mg 1X ONCE IVP Last administered on at 23:32; Start 09/25/18 at 23:15; Stop 09/25/18 at 23:16; Status DC Fentanyl Citrate (Fentanyl 2ml Vial) 50 mcg 1X ONCE IV Last administered on at 00:01; Start 09/26/18 at 00:00; Stop 09/26/18 at 00:01; Status DC Hydralazine HCl (Apresoline Inj) 10 mg 1X ONCE IVP Last administered on at 00:35; Start 09/26/18 at 00:30; Stop 09/26/18 at 00:31; Status DC Insulin Human Regular (HumuLIN R VIAL) 6 unit 1X ONCE IV Last administered on 09/26/18at 02:20; Start 09/26/18 at 01:45; Stop 09/26/18 at 01:46; Status DC Ondansetron HCl (Zofran) 4 mg PRN Q8HRS PRN IV NAUSEA/VOMITING; Start 09/26/18 at 01:45; Stop 09/27/18 at 01:44; Status DC Fentanyl Citrate (Fentanyl 2ml Vial) 50 mcg PRN Q1HR PRN IV PAIN Last administered on 09/27/18at 00:02; Start 09/26/18 at 01:45; Stop 09/27/18 at 01:44 ; Status DC Acetaminophen (Tylenol) 650 mg PRN Q4HRS PRN PO FEVER; Start 09/26/18 at 01:45 ; Stop 09/27/18 at 01:44; Status DC Nitroglycerin (Nitrostat) 0.4 mg PRN Q5MIN PRN SL CHEST PAIN; Start 09/26/18 at 01:45; Stop 09/27/18 at 01:44; Status DC Insulin Human Lispro (HumaLOG) 0-7 UNITS TIDWMEALS SQ Last administered on 09/26at 12:18; Start 09/26/18 at 08:00; Stop 09/26/18 at 17:12; Status DC Dextrose (Dextrose 50%-Water Syringe) 12.5 gm PRN Q15MIN PRN IV SEE COMMENTS; Start 09/26/18 at 01:45 Ceftriaxone Sodium (Rocephin) 1 gm 1X ONCE IVP Last administered on 09/26/18at 02:20; Start 09/26/18 at 01:45; Stop 09/26/18 at 01:46; Status DC Clonidine HCl (Catapres) 0.1 mg PRN Q8HRS PRN PO HYPERTENSION, SEE COMMENTS Last administered on 09/26/18 15:23; Start 09/26/18 at 01:45 Labetalol HCl (Normodyne Iv Push) 20 mg 1X ONCE IVP Last administered on 03:59; Start 09/26/18 at 03:30; Stop 09/26/18 at 03:32; Status DC Diphenhydramine HCl (Benadryl) 25 mg PRN Q6HRS PRN PO ITCHING Last administered on 09/30/18 00:17; Start 09/26/18 at 04:30 Levofloxacin/ Dextrose 150 ml @ 100 mls/hr Q24H IV ; Start 09/27/18 at 06:00; Stop 09/27/18 at 06:00; Status DC Levofloxacin/ Dextrose 100 ml @ 100 mls/hr Q24H IV Last administered on at 05:58; Start 09/27/18 at 06:00; Stop 09/27/18 at 19:53; Status DC Aspirin (Robert Aspirin) 325 mg DAILY PO Last administered on 09/30/18 08:58; Start 09/26/18 at 12:00 Metoprolol Succinate (Toprol Xl) 100 mg DAILY PO Last administered on 12:06; Start 09/26/18 at 12:00; Stop 09/26/18 at 18:29; Status DC Pantoprazole Sodium (Protonix) 40 mg DAILYAC PO Last administered on 09/30/18 08:58; Start 09/26/18 at 12:00 Trazodone HCl (Desyrel) 50 mg QHS PO Last administered on 09/28/18 21:21; Start 09/26/18 at 21:00 Trazodone HCl (Desyrel) 100 mg QHS PO Last administered on 09/29/18 21:36; Start 09/26/18 at 21:00 Citalopram Hydrobromide (CeleXA) 10 mg DAILY PO Last administered on 09/30/18 08:58; Start 09/26/18 at 12:00 Insulin Human Lispro (HumaLOG) 24 units TIDWMEALS SQ Last administered on 3/31/ 19at 12:54; Start 09/26/18 at 12:00 Insulin Glargine (Lantus) 74 units QHS SQ Last administered on 09/28/18 21:28 ; Start 09/26/18 at 21:00; Stop 09/28/18 at 21:38; Status DC Levothyroxine Sodium (Synthroid) 250 mcg DAILY06 PO Last administered on 12:06; Start 09/26/18 at 12:00; Stop 09/26/18 at 17:02; Status DC Losartan Potassium (Cozaar) 100 mg DAILY PO Last administered on 09/30/18 08: 59; Start 09/26/18 at 12:00 Atorvastatin Calcium (Lipitor) 80 mg QHS PO Last administered on 09/29/18 21: 36; Start 09/26/18 at 21:00 Non-Formulary Medication (Semaglutide (Ozempic)) 0.5 mg QFR SQ ; Start 09/28/18 at 16:00; Status UNV Hydrochlorothiazide (Microzide) 12.5 mg DAILY PO Last administered on at 08:42; Start 09/26/18 at 12:00; Stop 09/27/18 at 10:12; Status DC Iohexol (Omnipaque 350 Mg/ml) 80 ml 1X ONCE IV Last administered on 09/26/18at 13:15; Start 09/26/18 at 13:15; Stop 09/26/18 at 13:16; Status DC Info (CONTRAST GIVEN -- Rx MONITORING) 1 each PRN DAILY PRN MC SEE COMMENTS; Start 09/26/18 at 13:15; Stop 09/28/18 at 13:14; Status DC Magnesium Oxide (Magnesium Oxide) 400 mg 1X ONCE PO Last administered on at 15:23; Start 09/26/18 at 15:00; Stop 09/26/18 at 15:01; Status DC Lactobacillus Rhamnosus (Culturelle) 1 cap BID PO Last administered on at 08:57; Start 09/26/18 at 21:00 Hydralazine HCl (Apresoline Inj) 10 mg PRN Q4HRS PRN IVP ELEVATED BP, SEE COMMENTS Last administered on 09/27/18at 23:59; Start 09/26/18 at 16:45 Insulin Glargine (Lantus) 10 units QHS SQ ; Start 09/26/18 at 21:00; Status UNV Insulin Human Lispro (HumaLOG) 0-5 UNITS TIDWMEALS SQ Last administered on 09/30 12:57; Start 09/26/18 at 17:00 Dextrose (Dextrose 50%-Water Syringe) 12.5 gm PRN Q15MIN PRN IV SEE COMMENTS; Start 09/26/18 at 16:45; Status UNV Levothyroxine Sodium (Synthroid) 100 mcg ONCE ONCE PO Last administered on 17:46; Start 09/26/18 at 17:30; Stop 09/26/18 at 17:31; Status DC Enoxaparin Sodium (Lovenox 40mg Syringe) 40 mg Q24H SQ Last administered on 17:46; Start 09/26/18 at 17:00; Stop 09/27/18 at 08:33; Status DC Levothyroxine Sodium (Synthroid) 350 mcg DAILY06 PO Last administered on 06:04; Start 09/27/18 at 06:00 Carvedilol (Coreg) 12.5 mg BIDWMEALS PO Last administered on 09/30/18 08:58; Start 09/26/18 at 18:30 Enoxaparin Sodium (Lovenox 60mg Syringe) 60 mg Q12HR SQ Last administered on 08:57; Start 09/27/18 at 09:00 Chlorthalidone (Thalitone) 25 mg DAILY PO Last administered on 09/30/18 08:58 ; Start 09/27/18 at 11:00 Fentanyl Citrate (Fentanyl 2ml Vial) 50 mcg PRN Q2HR PRN IV PAIN SEVERE Last administered on 09/28/18 21:39; Start 09/27/18 at 10:45 Fentanyl Citrate (Fentanyl 2ml Vial) 25 mcg PRN Q2HR PRN IV PAIN MODERATE Last administered on 09/27/18 13:27; Start 09/27/18 at 10:45 Acetaminophen (Tylenol) 650 mg PRN Q6HRS PRN PO MILD - MODERATE PAIN; Start at 11:00 Potassium Chloride (Klor-Con) 40 meq 1X ONCE PO Last administered on 16:02; Start 09/27/18 at 15:00; Stop 09/27/18 at 15:01; Status DC Potassium Chloride (Klor-Con) 20 meq DAILYWBKFT PO Last administered on 08:34; Start 09/28/18 at 08:00; Stop 09/29/18 at 11:26; Status DC Lidocaine (Lidoderm) 1 patch DAILY TD Last administered on 09/30/18 08:57; Start 09/27/18 at 15:00 Miscellaneous (Lidoderm Patch Removal) 1 ea QHS MC Last administered on at 21:00; Start 09/27/18 at 21:00 Amlodipine Besylate (Norvasc) 5 mg 1X ONCE PO ; Start 09/27/18 at 15:30; Stop 09/27/18 at 15:31; Status DC Amlodipine Besylate (Norvasc) 10 mg DAILY PO Last administered on 09/30/18 08: 58; Start 09/28/18 at 09:00 Methylprednisolone Acetate (DEPO-Medrol 40MG VIAL) 40 mg 1X ONCE IM Last administered on 09/28/18 09:00; Start 09/27/18 at 17:45; Stop 09/27/18 at 17:46 ; Status DC Methylprednisolone Acetate (DEPO-Medrol 40MG VIAL) 40 mg 1X ONCE IM Last administered on 09/28/18 09:00; Start 09/27/18 at 17:45; Stop 09/27/18 at 17:46 ; Status DC Bupivacaine HCl (Sensorcaine-Mpf 0.25%) 10 ml 1X ONCE IJ Last administered on 09/28/18at 09:00; Start 09/27/18 at 17:45; Stop 09/27/18 at 17:46; Status DC Diclofenac Sodium (Voltaren) 1 clayton BID TP Last administered on 09/30/18 08:57 ; Start 09/27/18 at 21:00 Piperacillin Sod/ Tazobactam Sod (Zosyn Per Pharmacy) 1 each PRN DAILY PRN MC SEE COMMENTS; Start 09/27/18 at 19:15; Stop 09/30/18 at 09:43; Status DC Piperacillin Sod/ Tazobactam Sod 3.375 gm/Sodium Chloride 50 ml @ 100 mls/hr Q6HRS IV Last administered on 09/29/18 11:56; Start 09/28/18 at 00:00; Stop at 13:56; Status DC Potassium Chloride (Klor-Con) 40 meq 1X ONCE PO Last administered on 14:50; Start 09/28/18 at 14:15; Stop 09/28/18 at 14:29; Status DC Potassium Chloride (Klor-Con) 20 meq DAILYWBKFT PO Last administered on 08:58; Start 09/29/18 at 08:00 Insulin Glargine (Lantus) 64 units QHS SQ Last administered on 09/29/18 21:44 ; Start 09/29/18 at 21:00 Oxycodone/ Acetaminophen (Percocet 5/325) 1 tab PRN Q4HRS PRN PO SEVERE PAIN Last administered on 09/30/18 12:51; Start 09/28/18 at 21:45 Amoxicillin/ Clavulanate Potassium (Augmentin 500/ 125mg) 1 tab BID PO Last administered on 09/30/18 08:57; Start 09/29/18 at 21:00 Insulin Human Lispro (HumaLOG) 24 units QHS SQ Last administered on 09/29/18 21:43; Start 09/29/18 at 21:30 Active Scripts Active Reported Tresiba Flextouch U-200 (Insulin Degludec) 200 Unit/1 Ml Insuln.pen 64 Unit SQ QHS Ozempic (Semaglutide) 0.25 Mg/0.2 Ml Pen.injctr 0.5 Mg SQ QFR Novolog Flexpen (Insulin Aspart) 100 Unit/1 Ml Insuln.pen 24 Unit SQ TIDWMEALS Levothyroxine Sodium 125 Mcg Tablet 250 Mcg PO DAILYAC Trazodone Hcl 100 Mg Tablet 1 Tab PO QHS Trazodone Hcl 50 Mg Tablet 1 Tab PO QHS Protonix (Pantoprazole Sodium) 40 Mg Tablet.dr 1 Tab PO DAILY Crestor (Rosuvastatin Calcium) 20 Mg Tablet 20 Mg PO HS Aspirin 325 Mg Tablet 1 Tab PO DAILY Losartan-Hctz 100-12.5 Mg Tab (Losartan/Hydrochlorothiazide) 1 Each Tablet 1 Tab PO DAILY Metoprolol Succinate ( Xl ) (Metoprolol Succinate) 100 Mg Tab.er.24h 100 Mg Escitalopram Oxalate 10 Mg Tablet 20 Mg PO DAILY Vitals/I & O Vital Sign - Last 24 Hours 09/29/18 09/29/18 09/29/18 09/29/18 15:00 15:10 17:27 17:32 Temp 97.4 97.4 Pulse 55 55 Resp 18 22 B/P (MAP) 136/63 (87) 136/63 Pulse Ox 95 96 O2 Delivery Room Air Room Air O2 Flow Rate 2.0 09/29/18 09/29/18 09/29/18 09/30/18 19:57 20:00 22:19 00:19 Temp 97.4 97.6 97.4 97.6 Pulse 56 57 Resp 16 16 20 B/P (MAP) 124/52 (76) 146/57 (86) Pulse Ox 93 96 97 O2 Delivery Room Air Room Air Room Air Nasal Cannula O2 Flow Rate 1.0 09/30/18 09/30/18 09/30/18 09/30/18 03:09 07:05 08:00 08:58 Temp 98.0 97.5 98.0 97.5 Pulse 55 50 50 Resp 16 18 B/P (MAP) 108/54 (72) 174/71 (105) 174/71 Pulse Ox 92 94 O2 Delivery BiPAP/CPAP BiPAP/CPAP Room Air O2 Flow Rate 1.0 09/30/18 09/30/18 09/30/18 09/30/18 08:58 08:59 11:39 12:51 Temp 97.3 97.3 Pulse 50 50 54 Resp 12 18 B/P (MAP) 174/71 174/71 138/57 (84) Pulse Ox 95 95 O2 Delivery Room Air Room Air O2 Flow Rate 1.0 09/30/18 14:20 Pulse Ox 95 O2 Delivery Room Air O2 Flow Rate 1.0 Intake and Output 09/29/18 09/29/18 09/30/18 15:00 23:00 07:00 Intake Total 700 ml 640 ml Output Total 100 ml Balance 600 ml 640 ml NIKITA DU MD Sep 30, 2018 14:48
[2018-09-30 15:02] VITALS: BP 139/63
[2018-09-30 19:50] VITALS: BP 133/47
[2018-09-30] MEDS: traZODone 50 MG TABLET. PO SCH (21:00)
[2018-09-30] MEDS: PATCH REMOVAL. MC SCH (21:00)
[2018-09-30] MEDS: traZODone 100 MG TABLET. PO SCH (21:30)
[2018-09-30] MEDS: ATORVASTATIN CALCIUM 40 MG TABLET. PO SCH (21:30)
[2018-09-30] MEDS: INSULIN GLARGINE 300 UNITS/3 ML INSULN.PEN. SQ SCH (21:33)
[2018-09-30 22:55] VITALS: BP 145/60
[2018-10-01 02:40] VITALS: BP 135/61
[2018-10-01 04:56] LABS: BASO % 1 % (0-3); EOS # 0.2 x10^3/uL (0.0-0.7); EOS % 4 % (0-3); HEMATOCRIT 39.5 % (36.0-47.0); HEMOGLOBIN 12.7 g/dL (12.0-15.5); LYMPH # 1.5 x10^3/uL (1.0-4.8); LYMPH % 28 % (24-48); MEAN CORPUSCULAR HEMOGLOBIN 29 pg (25-35); MEAN CORPUSCULAR HGB CONC 32 g/dL (31-37); MEAN CORPUSCULAR VOLUME 91 fL (79-100); MONO # 0.5 x10^3/uL (0.0-1.1); MONO % 10 % (0-9); NEUT # 3.2 x10^3uL (1.8-7.7); NEUT % 58 % (31-73); PLATELET COUNT 131 x10^3/uL (140-400); RED BLOOD COUNT 4.36 x10^6/uL (3.50-5.40); RED CELL DISTRIBUTION WIDTH 14.2 % (11.5-14.5); WHITE BLOOD COUNT 5.5 x10^3/uL (4.0-11.0)
[2018-10-01] MEDS: LEVOTHYROXINE 100 MCG TABLET PO SCH (05:55)
[2018-10-01 07:00] VITALS: BP 169/73
[2018-10-01] MEDS: LIDOCAINE (700MG/PATCH) PATCH. TD SCH (08:18)
[2018-10-01] MEDS: CHLORTHALIDONE 25 MG TABLET. PO SCH (08:19)
[2018-10-01] MEDS: AMOXICILLIN/K CLAV 500/125MG TABLET. PO SCH (08:19)
[2018-10-01] MEDS: DICLOFENAC SODIUM 1% TOPICAL GEL 100GM TUBE. TP SCH (08:19)
[2018-10-01] MEDS: LOSARTAN POTASSIUM 50 MG TABLET. PO SCH (08:20)
[2018-10-01] MEDS: ASPIRIN 325 MG TABLET PO SCH (08:20)
[2018-10-01] MEDS: amLODIPine BESYLATE 10 MG TABLET PO SCH (08:20)
[2018-10-01] MEDS: PANTOPRAZOLE 40 MG TABLET.DR. PO SCH (08:20)
[2018-10-01] MEDS: LACTOBACILLUS RHAMNOSUS GG 1 CAPSULE. PO SCH (08:20)
[2018-10-01] MEDS: CARVEDILOL 12.5 MG TABLET. PO SCH ×2 (08:21→17:10)
[2018-10-01] MEDS: POTASSIUM CHLORIDE 20 MEQ TABLET.ER. PO SCH (08:21)
[2018-10-01] MEDS: CITALOPRAM 10 MG TABLET. PO SCH (08:24)
[2018-10-01] MEDS: INSULIN LISPRO 300 UNITS/3 ML INSULN.PEN. SQ SCH ×6 (08:40→17:15)
--- NOTE | 2018-10-01 09:57 | PDOC ---
RANJIT NICOLE [employer] 10/01/18 0957: SUBJECTIVE Subjective Doing ok this am. Should go to rehabilitation later. Still has some pain on the right side under her rib cage, although this is somewhat improved. OBJECTIVE Objective Physical Exam: General appearance: Alert and Oriented Head: Normocephalic, without obvious abnormality Eyes: conjunctivae/corneas clear. PERRL, EOM's intact. Fundi benign Back: no CVA pain bilaterally Lungs: Regular respirations, non labored breathing Abdomen: soft, obese, slight generalized tenderness throughout with palpation. Pelvic: deferred Vital Signs Vital Signs Date Time Temp Pulse Resp B/P (MAP) Pulse Ox O2 Delivery O2 Flow Rate FiO2 10/01/18 08:21 63 169/73 10/01/18 08:20 61 169/73 10/01/18 08:20 61 169/73 10/01/18 07:00 97.7 56 18 169/73 (105) 95 BiPAP/CPAP 97.7 10/01/18 02:40 97.8 53 20 135/61 (85) 94 BiPAP/CPAP 97.8 09/30/18 22:55 98.0 52 22 145/60 (88) 94 BiPAP/CPAP 98.0 09/30/18 20:00 Room Air 09/30/18 19:50 97.6 61 22 133/47 (75) 92 Room Air 97.6 09/30/18 18:00 51 139/63 09/30/18 15:02 98.1 51 18 139/63 (88) 95 BiPAP/CPAP 98.1 09/30/18 14:20 95 Room Air 1.0 09/30/18 12:51 18 95 Room Air 1.0 09/30/18 11:39 97.3 54 12 138/57 (84) 95 Room Air 97.3 I & O Intake and Output 10/01/18 07:00 Intake Total 1680 ml Output Total 100 ml Balance 1580 ml Intake Oral 1680 ml Output Urine Total 100 ml # Voids 4 # Bowel Movements 1 PHYSICAL EXAM Physical Exam Physical Exam: General appearance: Alert and Oriented Head: Normocephalic, without obvious abnormality Eyes: conjunctivae/corneas clear. PERRL, EOM's intact. Fundi benign Back: no CVA pain bilaterally Lungs: Regular respirations, non labored breathing Abdomen: soft, obese, slight generalized tenderness throughout with palpation. Pelvic: deferred ASSESSMENT/PLAN Assessment/Plan Pt has several large stones that will require either staged ureteroscopy or percutaneous approach. Likely she will need more than one surgery to completely rid her of stone burden. Dr. Taveras did discuss a possibility of 3-4 surgeries with her, as an estimate, to completely rid her of stone burden. Patient may be too obese for PCNL; if so can perform a staged ureteroscopy. Stones are not currently obstructing and an unlikely cause of her pain. A follow up appointment has been secured for patient on 10/17/18 on 220 pm. Appointment card and new patient paperwork given to patient's on and per patient he still has it. At that time we will discuss with patient different options for stone management. ID has prescribed enough Augmentin to last her until her follow up on 10/17. Will sign off at this time but please call with questions or changes in patient condition. COMMENT Lab Laboratory Tests Test 09/30/18 12:03 09/30/18 17:07 09/30/18 20:47 10/01/18 03:40 Glucose (Fingerstick) 222 mg/dL (70-99) 112 mg/dL (70-99) 119 mg/dL (70-99) White Blood Count 5.5 x10^3/uL (4.0-11.0) Red Blood Count 4.36 x10^6/uL (3.50-5.40) Hemoglobin 12.7 g/dL (12.0-15.5) Hematocrit 39.5 % (36.0-47.0) Mean Corpuscular Volume 91 fL (79-100) Mean Corpuscular Hemoglobin 29 pg (25-35) Mean Corpuscular Hemoglobin Concent 32 g/dL (31-37) Red Cell Distribution Width 14.2 % (11.5-14.5) Platelet Count 131 x10^3/uL (140-400) Neutrophils (%) (Auto) 58 % (31-73) Lymphocytes (%) (Auto) 28 % (24-48) Monocytes (%) (Auto) 10 % (0-9) Eosinophils (%) (Auto) 4 % (0-3) Basophils (%) (Auto) 1 % (0-3) Neutrophils # (Auto) 3.2 x10^3uL (1.8-7.7) Lymphocytes # (Auto) 1.5 x10^3/uL (1.0-4.8) Monocytes # (Auto) 0.5 x10^3/uL (0.0-1.1) Eosinophils # (Auto) 0.2 x10^3/uL (0.0-0.7) Basophils # (Auto) 0.0 x10^3/uL (0.0-0.2) Test 10/01/18 07:55 Glucose (Fingerstick) 168 mg/dL (70-99) ANNE TAVERAS MD 10/04/18 1150: ASSESSMENT/PLAN Assessment/Plan Agree with assessment and plan. RANJIT NICOLE GLASS HAND[employer]ER Oct 01, 2018 09:57 ANNE TAVERAS MD Oct 04, 2018 11:50
[2018-10-01 11:00] VITALS: BP 141/70
--- NOTE | 2018-10-01 11:58 | NUR ---
SS following up with discharge planning. PT/OT recommended assisted unit. Pt requesting referral be sent to [facility], ; fax [phone]. SS phoned and faxed referral and pt is accepted. Physician notified. SS will await discharge orders for assisted unit and will proceed accordingly. Pt's RN notified.
--- NOTE | 2018-10-01 12:45 | PDOC ---
PROGRESS NOTES Subjective Subjective No new complaints. Objective Objective Vital Signs Date Time Temp Pulse Resp B/P (MAP) Pulse Ox O2 Delivery O2 Flow Rate FiO2 10/01/18 11:00 98.0 62 18 141/70 (93) 95 BiPAP/CPAP 98.0 09/30/18 14:20 1.0 Intake and Output 10/01/18 06:59 Intake Total 1680 ml Output Total 100 ml Balance 1580 ml Intake Oral 1680 ml Output Urine Total 100 ml # Voids 4 # Bowel Movements 1 Physical Exam Physical Exam She is comfortable sitting in bedside chair and eating lunch. She is walking with roller walker with physical therapy.Back,hip and knee joint pain is under control. Assessment Assessment Problems Medical Problems: (1) Accelerated hypertension Status: Acute (2) Chest pain Status: Acute (3) Hyperglycemia Status: Acute (4) Pyelonephritis Status: Acute Plan Plan of Care Agree with plans for SNF transfer when medically stable. Comment Review of Relevant I have reviewed the following items jeffrey (where applicable) has been applied. Labs Laboratory Tests Test 09/29/18 17:08 09/29/18 20:18 09/30/18 03:20 09/30/18 07:11 Glucose (Fingerstick) 117 mg/dL (70-99) 148 mg/dL (70-99) 162 mg/dL (70-99) White Blood Count 5.4 x10^3/uL (4.0-11.0) Red Blood Count 4.44 x10^6/uL (3.50-5.40) Hemoglobin 13.0 g/dL (12.0-15.5) Hematocrit 40.1 % (36.0-47.0) Mean Corpuscular Volume 90 fL (79-100) Mean Corpuscular Hemoglobin 29 pg (25-35) Mean Corpuscular Hemoglobin Concent 33 g/dL (31-37) Red Cell Distribution Width 14.3 % (11.5-14.5) Platelet Count 128 x10^3/uL (140-400) Neutrophils (%) (Auto) 57 % (31-73) Lymphocytes (%) (Auto) 29 % (24-48) Monocytes (%) (Auto) 10 % (0-9) Eosinophils (%) (Auto) 4 % (0-3) Basophils (%) (Auto) 1 % (0-3) Neutrophils # (Auto) 3.0 x10^3uL (1.8-7.7) Lymphocytes # (Auto) 1.6 x10^3/uL (1.0-4.8) Monocytes # (Auto) 0.5 x10^3/uL (0.0-1.1) Eosinophils # (Auto) 0.2 x10^3/uL (0.0-0.7) Basophils # (Auto) 0.0 x10^3/uL (0.0-0.2) Sodium Level 140 mmol/L (136-145) Potassium Level 3.8 mmol/L (3.5-5.1) Chloride Level 102 mmol/L (98-107) Carbon Dioxide Level 30 mmol/L (21-32) Anion Gap 8 (6-14) Blood Urea Nitrogen 14 mg/dL (7-20) Creatinine 1.1 mg/dL (0.6-1.0) Estimated GFR (Cockcroft-Gault) 49.4 Glucose Level 188 mg/dL (70-99) Calcium Level 9.6 mg/dL (8.5-10.1) Test 09/30/18 12:03 09/30/18 17:07 09/30/18 20:47 10/01/18 03:40 Glucose (Fingerstick) 222 mg/dL (70-99) 112 mg/dL (70-99) 119 mg/dL (70-99) White Blood Count 5.5 x10^3/uL (4.0-11.0) Red Blood Count 4.36 x10^6/uL (3.50-5.40) Hemoglobin 12.7 g/dL (12.0-15.5) Hematocrit 39.5 % (36.0-47.0) Mean Corpuscular Volume 91 fL (79-100) Mean Corpuscular Hemoglobin 29 pg (25-35) Mean Corpuscular Hemoglobin Concent 32 g/dL (31-37) Red Cell Distribution Width 14.2 % (11.5-14.5) Platelet Count 131 x10^3/uL (140-400) Neutrophils (%) (Auto) 58 % (31-73) Lymphocytes (%) (Auto) 28 % (24-48) Monocytes (%) (Auto) 10 % (0-9) Eosinophils (%) (Auto) 4 % (0-3) Basophils (%) (Auto) 1 % (0-3) Neutrophils # (Auto) 3.2 x10^3uL (1.8-7.7) Lymphocytes # (Auto) 1.5 x10^3/uL (1.0-4.8) Monocytes # (Auto) 0.5 x10^3/uL (0.0-1.1) Eosinophils # (Auto) 0.2 x10^3/uL (0.0-0.7) Basophils # (Auto) 0.0 x10^3/uL (0.0-0.2) Test 10/01/18 07:55 10/01/18 12:03 Glucose (Fingerstick) 168 mg/dL (70-99) 173 mg/dL (70-99) Laboratory Tests Test 09/30/18 17:07 09/30/18 20:47 10/01/18 03:40 10/01/18 07:55 Glucose (Fingerstick) 112 mg/dL (70-99) 119 mg/dL (70-99) 168 mg/dL (70-99) White Blood Count 5.5 x10^3/uL (4.0-11.0) Red Blood Count 4.36 x10^6/uL (3.50-5.40) Hemoglobin 12.7 g/dL (12.0-15.5) Hematocrit 39.5 % (36.0-47.0) Mean Corpuscular Volume 91 fL (79-100) Mean Corpuscular Hemoglobin 29 pg (25-35) Mean Corpuscular Hemoglobin Concent 32 g/dL (31-37) Red Cell Distribution Width 14.2 % (11.5-14.5) Platelet Count 131 x10^3/uL (140-400) Neutrophils (%) (Auto) 58 % (31-73) Lymphocytes (%) (Auto) 28 % (24-48) Monocytes (%) (Auto) 10 % (0-9) Eosinophils (%) (Auto) 4 % (0-3) Basophils (%) (Auto) 1 % (0-3) Neutrophils # (Auto) 3.2 x10^3uL (1.8-7.7) Lymphocytes # (Auto) 1.5 x10^3/uL (1.0-4.8) Monocytes # (Auto) 0.5 x10^3/uL (0.0-1.1) Eosinophils # (Auto) 0.2 x10^3/uL (0.0-0.7) Basophils # (Auto) 0.0 x10^3/uL (0.0-0.2) Test 10/01/18 12:03 Glucose (Fingerstick) 173 mg/dL (70-99) Microbiology 09/28/18 Urine Culture - Final, Complete 09/28/18 Urine Culture Result 1 (QUIQUE) - Final, Complete Medications Current Medications Metoprolol Tartrate (Lopressor Vial) 5 mg 1X ONCE IVP Last administered on at 23:32; Start 09/25/18 at 23:15; Stop 09/25/18 at 23:16; Status DC Fentanyl Citrate (Fentanyl 2ml Vial) 50 mcg 1X ONCE IV Last administered on at 00:01; Start 09/26/18 at 00:00; Stop 09/26/18 at 00:01; Status DC Hydralazine HCl (Apresoline Inj) 10 mg 1X ONCE IVP Last administered on at 00:35; Start 09/26/18 at 00:30; Stop 09/26/18 at 00:31; Status DC Insulin Human Regular (HumuLIN R VIAL) 6 unit 1X ONCE IV Last administered on 09/26/18at 02:20; Start 09/26/18 at 01:45; Stop 09/26/18 at 01:46; Status DC Ondansetron HCl (Zofran) 4 mg PRN Q8HRS PRN IV NAUSEA/VOMITING; Start 09/26/18 at 01:45; Stop 09/27/18 at 01:44; Status DC Fentanyl Citrate (Fentanyl 2ml Vial) 50 mcg PRN Q1HR PRN IV PAIN Last administered on 09/27/18at 00:02; Start 09/26/18 at 01:45; Stop 09/27/18 at 01:44 ; Status DC Acetaminophen (Tylenol) 650 mg PRN Q4HRS PRN PO FEVER; Start 09/26/18 at 01:45 ; Stop 09/27/18 at 01:44; Status DC Nitroglycerin (Nitrostat) 0.4 mg PRN Q5MIN PRN SL CHEST PAIN; Start 09/26/18 at 01:45; Stop 09/27/18 at 01:44; Status DC Insulin Human Lispro (HumaLOG) 0-7 UNITS TIDWMEALS SQ Last administered on 09/26at 12:18; Start 09/26/18 at 08:00; Stop 09/26/18 at 17:12; Status DC Dextrose (Dextrose 50%-Water Syringe) 12.5 gm PRN Q15MIN PRN IV SEE COMMENTS; Start 09/26/18 at 01:45 Ceftriaxone Sodium (Rocephin) 1 gm 1X ONCE IVP Last administered on 09/26/18at 02:20; Start 09/26/18 at 01:45; Stop 09/26/18 at 01:46; Status DC Clonidine HCl (Catapres) 0.1 mg PRN Q8HRS PRN PO HYPERTENSION, SEE COMMENTS Last administered on 09/26/18at 15:23; Start 09/26/18 at 01:45 Labetalol HCl (Normodyne Iv Push) 20 mg 1X ONCE IVP Last administered on at 03:59; Start 09/26/18 at 03:30; Stop 09/26/18 at 03:32; Status DC Diphenhydramine HCl (Benadryl) 25 mg PRN Q6HRS PRN PO ITCHING Last administered on 09/30/18at 00:17; Start 09/26/18 at 04:30 Levofloxacin/ Dextrose 150 ml @ 100 mls/hr Q24H IV ; Start 09/27/18 at 06:00; Stop 09/27/18 at 06:00; Status DC Levofloxacin/ Dextrose 100 ml @ 100 mls/hr Q24H IV Last administered on at 05:58; Start 09/27/18 at 06:00; Stop 09/27/18 at 19:53; Status DC Aspirin (Robert Aspirin) 325 mg DAILY PO Last administered on 10/01/18at 08:20; Start 09/26/18 at 12:00 Metoprolol Succinate (Toprol Xl) 100 mg DAILY PO Last administered on at 12:06; Start 09/26/18 at 12:00; Stop 09/26/18 at 18:29; Status DC Pantoprazole Sodium (Protonix) 40 mg DAILYAC PO Last administered on 10/01/18 08:20; Start 09/26/18 at 12:00 Trazodone HCl (Desyrel) 50 mg QHS PO Last administered on 09/28/18 21:21; Start 09/26/18 at 21:00 Trazodone HCl (Desyrel) 100 mg QHS PO Last administered on 09/30/18 21:30; Start 09/26/18 at 21:00 Citalopram Hydrobromide (CeleXA) 10 mg DAILY PO Last administered on 10/01/18 08:24; Start 09/26/18 at 12:00 Insulin Human Lispro (HumaLOG) 24 units TIDWMEALS SQ Last administered on 12:39; Start 09/26/18 at 12:00 Insulin Glargine (Lantus) 74 units QHS SQ Last administered on 09/28/18 21:28 ; Start 09/26/18 at 21:00; Stop 09/28/18 at 21:38; Status DC Levothyroxine Sodium (Synthroid) 250 mcg DAILY06 PO Last administered on 12:06; Start 09/26/18 at 12:00; Stop 09/26/18 at 17:02; Status DC Losartan Potassium (Cozaar) 100 mg DAILY PO Last administered on 10/01/18 08:20 ; Start 09/26/18 at 12:00 Atorvastatin Calcium (Lipitor) 80 mg QHS PO Last administered on 09/30/18 21: 30; Start 09/26/18 at 21:00 Non-Formulary Medication (Semaglutide (Ozempic)) 0.5 mg QFR SQ ; Start 09/28/18 at 16:00; Status UNV Hydrochlorothiazide (Microzide) 12.5 mg DAILY PO Last administered on 08:42; Start 09/26/18 at 12:00; Stop 09/27/18 at 10:12; Status DC Iohexol (Omnipaque 350 Mg/ml) 80 ml 1X ONCE IV Last administered on 09/26/18 13:15; Start 09/26/18 at 13:15; Stop 09/26/18 at 13:16; Status DC Info (CONTRAST GIVEN -- Rx MONITORING) 1 each PRN DAILY PRN MC SEE COMMENTS; Start 09/26/18 at 13:15; Stop 09/28/18 at 13:14; Status DC Magnesium Oxide (Magnesium Oxide) 400 mg 1X ONCE PO Last administered on 15:23; Start 09/26/18 at 15:00; Stop 09/26/18 at 15:01; Status DC Lactobacillus Rhamnosus (Culturelle) 1 cap BID PO Last administered on 08:20; Start 09/26/18 at 21:00 Hydralazine HCl (Apresoline Inj) 10 mg PRN Q4HRS PRN IVP ELEVATED BP, SEE COMMENTS Last administered on 09/27/18at 23:59; Start 09/26/18 at 16:45 Insulin Glargine (Lantus) 10 units QHS SQ ; Start 09/26/18 at 21:00; Status UNV Insulin Human Lispro (HumaLOG) 0-5 UNITS TIDWMEALS SQ Last administered on at 12:39; Start 09/26/18 at 17:00 Dextrose (Dextrose 50%-Water Syringe) 12.5 gm PRN Q15MIN PRN IV SEE COMMENTS; Start 09/26/18 at 16:45; Status UNV Levothyroxine Sodium (Synthroid) 100 mcg ONCE ONCE PO Last administered on at 17:46; Start 09/26/18 at 17:30; Stop 09/26/18 at 17:31; Status DC Enoxaparin Sodium (Lovenox 40mg Syringe) 40 mg Q24H SQ Last administered on at 17:46; Start 09/26/18 at 17:00; Stop 09/27/18 at 08:33; Status DC Levothyroxine Sodium (Synthroid) 350 mcg DAILY06 PO Last administered on 05:55; Start 09/27/18 at 06:00 Carvedilol (Coreg) 12.5 mg BIDWMEALS PO Last administered on 10/01/18 08:21; Start 09/26/18 at 18:30 Enoxaparin Sodium (Lovenox 60mg Syringe) 60 mg Q12HR SQ Last administered on 08:22; Start 09/27/18 at 09:00 Chlorthalidone (Thalitone) 25 mg DAILY PO Last administered on 10/01/18 08:19; Start 09/27/18 at 11:00 Fentanyl Citrate (Fentanyl 2ml Vial) 50 mcg PRN Q2HR PRN IV PAIN SEVERE Last administered on 09/28/18 21:39; Start 09/27/18 at 10:45 Fentanyl Citrate (Fentanyl 2ml Vial) 25 mcg PRN Q2HR PRN IV PAIN MODERATE Last administered on 09/27/18 13:27; Start 09/27/18 at 10:45 Acetaminophen (Tylenol) 650 mg PRN Q6HRS PRN PO MILD - MODERATE PAIN; Start at 11:00 Potassium Chloride (Klor-Con) 40 meq 1X ONCE PO Last administered on 16:02; Start 09/27/18 at 15:00; Stop 09/27/18 at 15:01; Status DC Potassium Chloride (Klor-Con) 20 meq DAILYWBKFT PO Last administered on 08:34; Start 09/28/18 at 08:00; Stop 09/29/18 at 11:26; Status DC Lidocaine (Lidoderm) 1 patch DAILY TD Last administered on 10/01/18 08:18; Start 09/27/18 at 15:00 Miscellaneous (Lidoderm Patch Removal) 1 ea QHS MC Last administered on 21:00; Start 09/27/18 at 21:00 Amlodipine Besylate (Norvasc) 5 mg 1X ONCE PO ; Start 09/27/18 at 15:30; Stop 09/27/18 at 15:31; Status DC Amlodipine Besylate (Norvasc) 10 mg DAILY PO Last administered on 10/01/18 08: 20; Start 09/28/18 at 09:00 Methylprednisolone Acetate (DEPO-Medrol 40MG VIAL) 40 mg 1X ONCE IM Last administered on 09/28/18 09:00; Start 09/27/18 at 17:45; Stop 09/27/18 at 17:46 ; Status DC Methylprednisolone Acetate (DEPO-Medrol 40MG VIAL) 40 mg 1X ONCE IM Last administered on 09/28/18 09:00; Start 09/27/18 at 17:45; Stop 09/27/18 at 17:46 ; Status DC Bupivacaine HCl (Sensorcaine-Mpf 0.25%) 10 ml 1X ONCE IJ Last administered on 09/28/18at 09:00; Start 09/27/18 at 17:45; Stop 09/27/18 at 17:46; Status DC Diclofenac Sodium (Voltaren) 1 clayton BID TP Last administered on 10/01/18at 08:19; Start 09/27/18 at 21:00 Piperacillin Sod/ Tazobactam Sod (Zosyn Per Pharmacy) 1 each PRN DAILY PRN MC SEE COMMENTS; Start 09/27/18 at 19:15; Stop 09/30/18 at 09:43; Status DC Piperacillin Sod/ Tazobactam Sod 3.375 gm/Sodium Chloride 50 ml @ 100 mls/hr Q6HRS IV Last administered on 09/29/18at 11:56; Start 09/28/18 at 00:00; Stop at 13:56; Status DC Potassium Chloride (Klor-Con) 40 meq 1X ONCE PO Last administered on at 14:50; Start 09/28/18 at 14:15; Stop 09/28/18 at 14:29; Status DC Potassium Chloride (Klor-Con) 20 meq DAILYWBKFT PO Last administered on at 08:21; Start 09/29/18 at 08:00 Insulin Glargine (Lantus) 64 units QHS SQ Last administered on 09/30/18at 21:33 ; Start 09/29/18 at 21:00 Oxycodone/ Acetaminophen (Percocet 5/325) 1 tab PRN Q4HRS PRN PO SEVERE PAIN Last administered on 09/30/18at 12:51; Start 09/28/18 at 21:45 Amoxicillin/ Clavulanate Potassium (Augmentin 500/ 125mg) 1 tab BID PO Last administered on 10/01/18at 08:19; Start 09/29/18 at 21:00 Insulin Human Lispro (HumaLOG) 24 units QHS SQ Last administered on 09/30/18at 21:32; Start 09/29/18 at 21:30 Active Scripts Active Reported Tresiba Flextouch U-200 (Insulin Degludec) 200 Unit/1 Ml Insuln.pen 64 Unit SQ QHS Ozempic (Semaglutide) 0.25 Mg/0.2 Ml Pen.injctr 0.5 Mg SQ QFR Novolog Flexpen (Insulin Aspart) 100 Unit/1 Ml Insuln.pen 24 Unit SQ TIDWMEALS Levothyroxine Sodium 125 Mcg Tablet 250 Mcg PO DAILYAC Trazodone Hcl 100 Mg Tablet 1 Tab PO QHS Trazodone Hcl 50 Mg Tablet 1 Tab PO QHS Protonix (Pantoprazole Sodium) 40 Mg Tablet.dr 1 Tab PO DAILY Crestor (Rosuvastatin Calcium) 20 Mg Tablet 20 Mg PO HS Aspirin 325 Mg Tablet 1 Tab PO DAILY Losartan-Hctz 100-12.5 Mg Tab (Losartan/Hydrochlorothiazide) 1 Each Tablet 1 Tab PO DAILY Metoprolol Succinate ( Xl ) (Metoprolol Succinate) 100 Mg Tab.er.24h 100 Mg Escitalopram Oxalate 10 Mg Tablet 20 Mg PO DAILY Vitals/I & O Vital Sign - Last 24 Hours 09/30/18 09/30/18 09/30/18 09/30/18 12:51 14:20 15:02 18:00 Temp 98.1 98.1 Pulse 51 51 Resp 18 18 B/P (MAP) 139/63 (88) 139/63 Pulse Ox 95 95 95 O2 Delivery Room Air Room Air BiPAP/CPAP O2 Flow Rate 1.0 1.0 09/30/18 09/30/18 09/30/18 10/01/18 19:50 20:00 22:55 02:40 Temp 97.6 98.0 97.8 97.6 98.0 97.8 Pulse 61 52 53 Resp 22 22 20 B/P (MAP) 133/47 (75) 145/60 (88) 135/61 (85) Pulse Ox 92 94 94 O2 Delivery Room Air Room Air BiPAP/CPAP BiPAP/CPAP 10/01/18 10/01/18 10/01/18 10/01/18 07:00 08:20 08:20 08:21 Temp 97.7 97.7 Pulse 56 61 61 63 Resp 18 B/P (MAP) 169/73 (105) 169/73 169/73 169/73 Pulse Ox 95 O2 Delivery BiPAP/CPAP 10/01/18 10/01/18 08:30 11:00 Temp 98.0 98.0 Pulse 62 Resp 18 B/P (MAP) 141/70 (93) Pulse Ox 95 O2 Delivery Room Air BiPAP/CPAP Intake and Output 09/30/18 09/30/18 10/01/18 14:59 22:59 06:59 Intake Total 800 ml 880 ml Output Total 100 ml Balance -100 ml 800 ml 880 ml MARYLIN CERVANTES MD Oct 01, 2018 12:45
--- NOTE | 2018-10-01 13:46 | PDOC ---
PROGRESS NOTES History of Present Illness History of Present Illness Assessment/Plan Assessment/Plan IMPRESSION 1. CHEST PAIN 2. SEPSIS SEC TO ACUTE PYELONEPHRITIS proteus isolated several moderate sized calculi in the right renal collecting system and a staghorn-type configuration. The largest of these measures 3.2 cm in width. There is no associated hydronephrosis. There is streaky increased density in the parapelvic fat on the right suggesting chronic inflammation or scarring. There are smaller nonobstructing intrarenal calculi on the left. There is bilateral renal cortical scarring, more so on the right. 3. MORBID OBESITY, EXTREME 4. Stable aneurysmal dilatation of the ascending aorta. There is dilatation of the ascending aorta. It measures 4.7 cm in greatest width on the coronal images. There has been no significant change since 02/06/2017. 5. Bilateral intrarenal calculi, worse on the right. 6. UNTREATED HYPOTHYROID STATE 7. Metabolic syndrome 8. UNCONTROLLED DIABETES A1C= 9.8 9. several large stones that will require either staged ureteroscopy or percutaneous approach. 10. hematuria 11. low back pain PLAN BLOOD AND URINE CULTURES po ANTIBIOTICS CARDIOLOGY CONSULT REVIEWED ECHO UROLOGY FOLLOWING RE STAGHORN RENAL CALCULUS synthroid 100mcg po daily weight loss needed Lantus 10units sq q hs SS INSULIN DVT PROPHYLAXIS LEFT LOWER BACK PAIN SLOW TO IMPROVE proceed with injecting painful left trochanteric bursa and sacroiliac joint INJ to help ease her pain.refused by pt pt/ot continue augmentin until seen at [facility]// UROLOGY d/c to [facility] today HCR may need extensive rx of stone at [facility] [place]/// Until anatomic abnormality is not resolved pt remains at risk of recurrent utis /sepsis due to large rt renal staghorn calculi 33 MIN PT EXAM,D/C PLANNING Vitals Vitals Vital Signs Date Time Temp Pulse Resp B/P (MAP) Pulse Ox O2 Delivery O2 Flow Rate FiO2 10/01/18 11:00 98.0 62 18 141/70 (93) 95 BiPAP/CPAP 98.0 09/30/18 14:20 1.0 Physical Exam Physical Exam General: Sitting on the side of the bed, alert, relaxed HEENT: DEVONTE. Oropharynx dry, no thrush. Lungs : clear bilaterally Heart : S1, S2 Abdomen: Obese, soft, NT BACK: + CVA tender, right Ext : No gross edema , no cyanosis TALENT DIRECTOR Alert and oriented x 3 SKIN; No rash PIV General: Alert, Oriented X3, Cooperative, No acute distress, mild distress Heart: Regular rate (SR), Normal S1, Normal S2, Other (2/6 systolic murmur to LLS border) Lungs: Clear Abdomen: Normal bowel sounds, Soft, No hepatosplenomegaly Extremities: No clubbing, No cyanosis, Other (trace to 1+ pitting leg edema) Skin: No breakdown, No significant lesion Labs LABS Laboratory Tests Test 09/30/18 17:07 09/30/18 20:47 10/01/18 03:40 10/01/18 07:55 Glucose (Fingerstick) 112 mg/dL (70-99) 119 mg/dL (70-99) 168 mg/dL (70-99) White Blood Count 5.5 x10^3/uL (4.0-11.0) Red Blood Count 4.36 x10^6/uL (3.50-5.40) Hemoglobin 12.7 g/dL (12.0-15.5) Hematocrit 39.5 % (36.0-47.0) Mean Corpuscular Volume 91 fL (79-100) Mean Corpuscular Hemoglobin 29 pg (25-35) Mean Corpuscular Hemoglobin Concent 32 g/dL (31-37) Red Cell Distribution Width 14.2 % (11.5-14.5) Platelet Count 131 x10^3/uL (140-400) Neutrophils (%) (Auto) 58 % (31-73) Lymphocytes (%) (Auto) 28 % (24-48) Monocytes (%) (Auto) 10 % (0-9) Eosinophils (%) (Auto) 4 % (0-3) Basophils (%) (Auto) 1 % (0-3) Neutrophils # (Auto) 3.2 x10^3uL (1.8-7.7) Lymphocytes # (Auto) 1.5 x10^3/uL (1.0-4.8) Monocytes # (Auto) 0.5 x10^3/uL (0.0-1.1) Eosinophils # (Auto) 0.2 x10^3/uL (0.0-0.7) Basophils # (Auto) 0.0 x10^3/uL (0.0-0.2) Test 10/01/18 12:03 Glucose (Fingerstick) 173 mg/dL (70-99) Assessment and Plan Assessmemt and Plan Problems Medical Problems: (1) Accelerated hypertension Status: Acute (2) Chest pain Status: Acute (3) Hyperglycemia Status: Acute (4) Pyelonephritis Status: Acute Comment Review of Relevant I have reviewed the following items jeffrey (where applicable) has been applied. Labs Laboratory Tests Test 09/29/18 17:08 09/29/18 20:18 09/30/18 03:20 09/30/18 07:11 Glucose (Fingerstick) 117 mg/dL (70-99) 148 mg/dL (70-99) 162 mg/dL (70-99) White Blood Count 5.4 x10^3/uL (4.0-11.0) Red Blood Count 4.44 x10^6/uL (3.50-5.40) Hemoglobin 13.0 g/dL (12.0-15.5) Hematocrit 40.1 % (36.0-47.0) Mean Corpuscular Volume 90 fL (79-100) Mean Corpuscular Hemoglobin 29 pg (25-35) Mean Corpuscular Hemoglobin Concent 33 g/dL (31-37) Red Cell Distribution Width 14.3 % (11.5-14.5) Platelet Count 128 x10^3/uL (140-400) Neutrophils (%) (Auto) 57 % (31-73) Lymphocytes (%) (Auto) 29 % (24-48) Monocytes (%) (Auto) 10 % (0-9) Eosinophils (%) (Auto) 4 % (0-3) Basophils (%) (Auto) 1 % (0-3) Neutrophils # (Auto) 3.0 x10^3uL (1.8-7.7) Lymphocytes # (Auto) 1.6 x10^3/uL (1.0-4.8) Monocytes # (Auto) 0.5 x10^3/uL (0.0-1.1) Eosinophils # (Auto) 0.2 x10^3/uL (0.0-0.7) Basophils # (Auto) 0.0 x10^3/uL (0.0-0.2) Sodium Level 140 mmol/L (136-145) Potassium Level 3.8 mmol/L (3.5-5.1) Chloride Level 102 mmol/L (98-107) Carbon Dioxide Level 30 mmol/L (21-32) Anion Gap 8 (6-14) Blood Urea Nitrogen 14 mg/dL (7-20) Creatinine 1.1 mg/dL (0.6-1.0) Estimated GFR (Cockcroft-Gault) 49.4 Glucose Level 188 mg/dL (70-99) Calcium Level 9.6 mg/dL (8.5-10.1) Test 09/30/18 12:03 09/30/18 17:07 09/30/18 20:47 10/01/18 03:40 Glucose (Fingerstick) 222 mg/dL (70-99) 112 mg/dL (70-99) 119 mg/dL (70-99) White Blood Count 5.5 x10^3/uL (4.0-11.0) Red Blood Count 4.36 x10^6/uL (3.50-5.40) Hemoglobin 12.7 g/dL (12.0-15.5) Hematocrit 39.5 % (36.0-47.0) Mean Corpuscular Volume 91 fL (79-100) Mean Corpuscular Hemoglobin 29 pg (25-35) Mean Corpuscular Hemoglobin Concent 32 g/dL (31-37) Red Cell Distribution Width 14.2 % (11.5-14.5) Platelet Count 131 x10^3/uL (140-400) Neutrophils (%) (Auto) 58 % (31-73) Lymphocytes (%) (Auto) 28 % (24-48) Monocytes (%) (Auto) 10 % (0-9) Eosinophils (%) (Auto) 4 % (0-3) Basophils (%) (Auto) 1 % (0-3) Neutrophils # (Auto) 3.2 x10^3uL (1.8-7.7) Lymphocytes # (Auto) 1.5 x10^3/uL (1.0-4.8) Monocytes # (Auto) 0.5 x10^3/uL (0.0-1.1) Eosinophils # (Auto) 0.2 x10^3/uL (0.0-0.7) Basophils # (Auto) 0.0 x10^3/uL (0.0-0.2) Test 10/01/18 07:55 10/01/18 12:03 Glucose (Fingerstick) 168 mg/dL (70-99) 173 mg/dL (70-99) Laboratory Tests Test 09/30/18 17:07 09/30/18 20:47 10/01/18 03:40 10/01/18 07:55 Glucose (Fingerstick) 112 mg/dL (70-99) 119 mg/dL (70-99) 168 mg/dL (70-99) White Blood Count 5.5 x10^3/uL (4.0-11.0) Red Blood Count 4.36 x10^6/uL (3.50-5.40) Hemoglobin 12.7 g/dL (12.0-15.5) Hematocrit 39.5 % (36.0-47.0) Mean Corpuscular Volume 91 fL (79-100) Mean Corpuscular Hemoglobin 29 pg (25-35) Mean Corpuscular Hemoglobin Concent 32 g/dL (31-37) Red Cell Distribution Width 14.2 % (11.5-14.5) Platelet Count 131 x10^3/uL (140-400) Neutrophils (%) (Auto) 58 % (31-73) Lymphocytes (%) (Auto) 28 % (24-48) Monocytes (%) (Auto) 10 % (0-9) Eosinophils (%) (Auto) 4 % (0-3) Basophils (%) (Auto) 1 % (0-3) Neutrophils # (Auto) 3.2 x10^3uL (1.8-7.7) Lymphocytes # (Auto) 1.5 x10^3/uL (1.0-4.8) Monocytes # (Auto) 0.5 x10^3/uL (0.0-1.1) Eosinophils # (Auto) 0.2 x10^3/uL (0.0-0.7) Basophils # (Auto) 0.0 x10^3/uL (0.0-0.2) Test 10/01/18 12:03 Glucose (Fingerstick) 173 mg/dL (70-99) Microbiology 09/28/18 Urine Culture - Final, Complete 09/28/18 Urine Culture Result 1 (QUIQUE) - Final, Complete Medications Current Medications Metoprolol Tartrate (Lopressor Vial) 5 mg 1X ONCE IVP Last administered on at 23:32; Start 09/25/18 at 23:15; Stop 09/25/18 at 23:16; Status DC Fentanyl Citrate (Fentanyl 2ml Vial) 50 mcg 1X ONCE IV Last administered on at 00:01; Start 09/26/18 at 00:00; Stop 09/26/18 at 00:01; Status DC Hydralazine HCl (Apresoline Inj) 10 mg 1X ONCE IVP Last administered on at 00:35; Start 09/26/18 at 00:30; Stop 09/26/18 at 00:31; Status DC Insulin Human Regular (HumuLIN R VIAL) 6 unit 1X ONCE IV Last administered on 09/26/18at 02:20; Start 09/26/18 at 01:45; Stop 09/26/18 at 01:46; Status DC Ondansetron HCl (Zofran) 4 mg PRN Q8HRS PRN IV NAUSEA/VOMITING; Start 09/26/18 at 01:45; Stop 09/27/18 at 01:44; Status DC Fentanyl Citrate (Fentanyl 2ml Vial) 50 mcg PRN Q1HR PRN IV PAIN Last administered on 09/27/18at 00:02; Start 09/26/18 at 01:45; Stop 09/27/18 at 01:44 ; Status DC Acetaminophen (Tylenol) 650 mg PRN Q4HRS PRN PO FEVER; Start 09/26/18 at 01:45 ; Stop 09/27/18 at 01:44; Status DC Nitroglycerin (Nitrostat) 0.4 mg PRN Q5MIN PRN SL CHEST PAIN; Start 09/26/18 at 01:45; Stop 09/27/18 at 01:44; Status DC Insulin Human Lispro (HumaLOG) 0-7 UNITS TIDWMEALS SQ Last administered on 09/26at 12:18; Start 09/26/18 at 08:00; Stop 09/26/18 at 17:12; Status DC Dextrose (Dextrose 50%-Water Syringe) 12.5 gm PRN Q15MIN PRN IV SEE COMMENTS; Start 09/26/18 at 01:45 Ceftriaxone Sodium (Rocephin) 1 gm 1X ONCE IVP Last administered on 09/26/18at 02:20; Start 09/26/18 at 01:45; Stop 09/26/18 at 01:46; Status DC Clonidine HCl (Catapres) 0.1 mg PRN Q8HRS PRN PO HYPERTENSION, SEE COMMENTS Last administered on 09/26/18at 15:23; Start 09/26/18 at 01:45 Labetalol HCl (Normodyne Iv Push) 20 mg 1X ONCE IVP Last administered on at 03:59; Start 09/26/18 at 03:30; Stop 09/26/18 at 03:32; Status DC Diphenhydramine HCl (Benadryl) 25 mg PRN Q6HRS PRN PO ITCHING Last administered on 09/30/18at 00:17; Start 09/26/18 at 04:30 Levofloxacin/ Dextrose 150 ml @ 100 mls/hr Q24H IV ; Start 09/27/18 at 06:00; Stop 09/27/18 at 06:00; Status DC Levofloxacin/ Dextrose 100 ml @ 100 mls/hr Q24H IV Last administered on at 05:58; Start 09/27/18 at 06:00; Stop 09/27/18 at 19:53; Status DC Aspirin (Robert Aspirin) 325 mg DAILY PO Last administered on 10/01/18at 08:20; Start 09/26/18 at 12:00 Metoprolol Succinate (Toprol Xl) 100 mg DAILY PO Last administered on at 12:06; Start 09/26/18 at 12:00; Stop 09/26/18 at 18:29; Status DC Pantoprazole Sodium (Protonix) 40 mg DAILYAC PO Last administered on 10/01/18at 08:20; Start 09/26/18 at 12:00 Trazodone HCl (Desyrel) 50 mg QHS PO Last administered on 09/28/18at 21:21; Start 09/26/18 at 21:00 Trazodone HCl (Desyrel) 100 mg QHS PO Last administered on 09/30/18at 21:30; Start 09/26/18 at 21:00 Citalopram Hydrobromide (CeleXA) 10 mg DAILY PO Last administered on 10/01/18 08:24; Start 09/26/18 at 12:00 Insulin Human Lispro (HumaLOG) 24 units TIDWMEALS SQ Last administered on 12:39; Start 09/26/18 at 12:00 Insulin Glargine (Lantus) 74 units QHS SQ Last administered on 09/28/18 21:28 ; Start 09/26/18 at 21:00; Stop 09/28/18 at 21:38; Status DC Levothyroxine Sodium (Synthroid) 250 mcg DAILY06 PO Last administered on 12:06; Start 09/26/18 at 12:00; Stop 09/26/18 at 17:02; Status DC Losartan Potassium (Cozaar) 100 mg DAILY PO Last administered on 10/01/18 08:20 ; Start 09/26/18 at 12:00 Atorvastatin Calcium (Lipitor) 80 mg QHS PO Last administered on 09/30/18 21: 30; Start 09/26/18 at 21:00 Non-Formulary Medication (Semaglutide (Ozempic)) 0.5 mg QFR SQ ; Start 09/28/18 at 16:00; Status UNV Hydrochlorothiazide (Microzide) 12.5 mg DAILY PO Last administered on 08:42; Start 09/26/18 at 12:00; Stop 09/27/18 at 10:12; Status DC Iohexol (Omnipaque 350 Mg/ml) 80 ml 1X ONCE IV Last administered on 09/26/18at 13:15; Start 09/26/18 at 13:15; Stop 09/26/18 at 13:16; Status DC Info (CONTRAST GIVEN -- Rx MONITORING) 1 each PRN DAILY PRN MC SEE COMMENTS; Start 09/26/18 at 13:15; Stop 09/28/18 at 13:14; Status DC Magnesium Oxide (Magnesium Oxide) 400 mg 1X ONCE PO Last administered on at 15:23; Start 09/26/18 at 15:00; Stop 09/26/18 at 15:01; Status DC Lactobacillus Rhamnosus (Culturelle) 1 cap BID PO Last administered on 4/1/ 19at 08:20; Start 09/26/18 at 21:00 Hydralazine HCl (Apresoline Inj) 10 mg PRN Q4HRS PRN IVP ELEVATED BP, SEE COMMENTS Last administered on 09/27/18at 23:59; Start 09/26/18 at 16:45 Insulin Glargine (Lantus) 10 units QHS SQ ; Start 09/26/18 at 21:00; Status UNV Insulin Human Lispro (HumaLOG) 0-5 UNITS TIDWMEALS SQ Last administered on at 12:39; Start 09/26/18 at 17:00 Dextrose (Dextrose 50%-Water Syringe) 12.5 gm PRN Q15MIN PRN IV SEE COMMENTS; Start 09/26/18 at 16:45; Status UNV Levothyroxine Sodium (Synthroid) 100 mcg ONCE ONCE PO Last administered on 17:46; Start 09/26/18 at 17:30; Stop 09/26/18 at 17:31; Status DC Enoxaparin Sodium (Lovenox 40mg Syringe) 40 mg Q24H SQ Last administered on at 17:46; Start 09/26/18 at 17:00; Stop 09/27/18 at 08:33; Status DC Levothyroxine Sodium (Synthroid) 350 mcg DAILY06 PO Last administered on 05:55; Start 09/27/18 at 06:00 Carvedilol (Coreg) 12.5 mg BIDWMEALS PO Last administered on 10/01/18 08:21; Start 09/26/18 at 18:30 Enoxaparin Sodium (Lovenox 60mg Syringe) 60 mg Q12HR SQ Last administered on 08:22; Start 09/27/18 at 09:00 Chlorthalidone (Thalitone) 25 mg DAILY PO Last administered on 10/01/18 08:19; Start 09/27/18 at 11:00 Fentanyl Citrate (Fentanyl 2ml Vial) 50 mcg PRN Q2HR PRN IV PAIN SEVERE Last administered on 09/28/18 21:39; Start 09/27/18 at 10:45 Fentanyl Citrate (Fentanyl 2ml Vial) 25 mcg PRN Q2HR PRN IV PAIN MODERATE Last administered on 09/27/18at 13:27; Start 09/27/18 at 10:45 Acetaminophen (Tylenol) 650 mg PRN Q6HRS PRN PO MILD - MODERATE PAIN; Start at 11:00 Potassium Chloride (Klor-Con) 40 meq 1X ONCE PO Last administered on 16:02; Start 09/27/18 at 15:00; Stop 09/27/18 at 15:01; Status DC Potassium Chloride (Klor-Con) 20 meq DAILYWBKFT PO Last administered on 08:34; Start 09/28/18 at 08:00; Stop 09/29/18 at 11:26; Status DC Lidocaine (Lidoderm) 1 patch DAILY TD Last administered on 10/01/18 08:18; Start 09/27/18 at 15:00 Miscellaneous (Lidoderm Patch Removal) 1 ea QHS MC Last administered on at 21:00; Start 09/27/18 at 21:00 Amlodipine Besylate (Norvasc) 5 mg 1X ONCE PO ; Start 09/27/18 at 15:30; Stop 09/27/18 at 15:31; Status DC Amlodipine Besylate (Norvasc) 10 mg DAILY PO Last administered on 10/01/18 08: 20; Start 09/28/18 at 09:00 Methylprednisolone Acetate (DEPO-Medrol 40MG VIAL) 40 mg 1X ONCE IM Last administered on 09/28/18 09:00; Start 09/27/18 at 17:45; Stop 09/27/18 at 17:46 ; Status DC Methylprednisolone Acetate (DEPO-Medrol 40MG VIAL) 40 mg 1X ONCE IM Last administered on 09/28/18 09:00; Start 09/27/18 at 17:45; Stop 09/27/18 at 17:46 ; Status DC Bupivacaine HCl (Sensorcaine-Mpf 0.25%) 10 ml 1X ONCE IJ Last administered on 09/28/18 09:00; Start 09/27/18 at 17:45; Stop 09/27/18 at 17:46; Status DC Diclofenac Sodium (Voltaren) 1 clayton BID TP Last administered on 10/01/18 08:19; Start 09/27/18 at 21:00 Piperacillin Sod/ Tazobactam Sod (Zosyn Per Pharmacy) 1 each PRN DAILY PRN MC SEE COMMENTS; Start 09/27/18 at 19:15; Stop 09/30/18 at 09:43; Status DC Piperacillin Sod/ Tazobactam Sod 3.375 gm/Sodium Chloride 50 ml @ 100 mls/hr Q6HRS IV Last administered on 09/29/18at 11:56; Start 09/28/18 at 00:00; Stop at 13:56; Status DC Potassium Chloride (Klor-Con) 40 meq 1X ONCE PO Last administered on at 14:50; Start 09/28/18 at 14:15; Stop 09/28/18 at 14:29; Status DC Potassium Chloride (Klor-Con) 20 meq DAILYWBKFT PO Last administered on at 08:21; Start 09/29/18 at 08:00 Insulin Glargine (Lantus) 64 units QHS SQ Last administered on 09/30/18at 21:33 ; Start 09/29/18 at 21:00 Oxycodone/ Acetaminophen (Percocet 5/325) 1 tab PRN Q4HRS PRN PO SEVERE PAIN Last administered on 09/30/18at 12:51; Start 09/28/18 at 21:45 Amoxicillin/ Clavulanate Potassium (Augmentin 500/ 125mg) 1 tab BID PO Last administered on 10/01/18at 08:19; Start 09/29/18 at 21:00 Insulin Human Lispro (HumaLOG) 24 units QHS SQ Last administered on 09/30/18at 21:32; Start 09/29/18 at 21:30 Active Scripts Active Reported Tresiba Flextouch U-200 (Insulin Degludec) 200 Unit/1 Ml Insuln.pen 64 Unit SQ QHS Ozempic (Semaglutide) 0.25 Mg/0.2 Ml Pen.injctr 0.5 Mg SQ QFR Novolog Flexpen (Insulin Aspart) 100 Unit/1 Ml Insuln.pen 24 Unit SQ TIDWMEALS Levothyroxine Sodium 125 Mcg Tablet 250 Mcg PO DAILYAC Trazodone Hcl 100 Mg Tablet 1 Tab PO QHS Trazodone Hcl 50 Mg Tablet 1 Tab PO QHS Protonix (Pantoprazole Sodium) 40 Mg Tablet.dr 1 Tab PO DAILY Crestor (Rosuvastatin Calcium) 20 Mg Tablet 20 Mg PO HS Aspirin 325 Mg Tablet 1 Tab PO DAILY Losartan-Hctz 100-12.5 Mg Tab (Losartan/Hydrochlorothiazide) 1 Each Tablet 1 Tab PO DAILY Metoprolol Succinate ( Xl ) (Metoprolol Succinate) 100 Mg Tab.er.24h 100 Mg Escitalopram Oxalate 10 Mg Tablet 20 Mg PO DAILY Vitals/I & O Vital Sign - Last 24 Hours 09/30/18 09/30/18 09/30/18 09/30/18 14:20 15:02 18:00 19:50 Temp 98.1 97.6 98.1 97.6 Pulse 51 51 61 Resp 18 22 B/P (MAP) 139/63 (88) 139/63 133/47 (75) Pulse Ox 95 95 92 O2 Delivery Room Air BiPAP/CPAP Room Air O2 Flow Rate 1.0 09/30/18 09/30/18 10/01/18 10/01/18 20:00 22:55 02:40 07:00 Temp 98.0 97.8 97.7 98.0 97.8 97.7 Pulse 52 53 56 Resp 22 20 18 B/P (MAP) 145/60 (88) 135/61 (85) 169/73 (105) Pulse Ox 94 94 95 O2 Delivery Room Air BiPAP/CPAP BiPAP/CPAP BiPAP/CPAP 10/01/18 10/01/18 10/01/18 10/01/18 08:20 08:20 08:21 08:30 Pulse 61 61 63 B/P (MAP) 169/73 169/73 169/73 O2 Delivery Room Air 10/01/18 11:00 Temp 98.0 98.0 Pulse 62 Resp 18 B/P (MAP) 141/70 (93) Pulse Ox 95 O2 Delivery BiPAP/CPAP Intake and Output 09/30/18 09/30/18 10/01/18 15:00 23:00 07:00 Intake Total 800 ml 880 ml Output Total 100 ml Balance -100 ml 800 ml 880 ml NIKITA DU MD Oct 01, 2018 13:46
--- NOTE | 2018-10-01 14:28 | PDOC3 ---
Discharge Summary Date of Admission: Sep 25, 2018 Date of Discharge: Oct 01, 2018 Follow-Up: 1-2 days Admitting Diagnosis comment: DISCHARGE DX Assessment/Plan IMPRESSION 1. CHEST PAIN 2. SEPSIS SEC TO ACUTE PYELONEPHRITIS proteus isolated several moderate sized calculi in the right renal collecting system and a staghorn-type configuration. The largest of these measures 3.2 cm in width. There is no associated hydronephrosis. There is streaky increased density in the parapelvic fat on the right suggesting chronic inflammation or scarring. There are smaller nonobstructing intrarenal calculi on the left. There is bilateral renal cortical scarring, more so on the right. 3. MORBID OBESITY, EXTREME 4. Stable aneurysmal dilatation of the ascending aorta. There is dilatation of the ascending aorta. It measures 4.7 cm in greatest width on the coronal images. There has been no significant change since 02/06/2017. 5. Bilateral intrarenal calculi, worse on the right. 6. UNTREATED HYPOTHYROID STATE 7. Metabolic syndrome 8. UNCONTROLLED DIABETES A1C= 9.8 9. several large stones that will require either staged ureteroscopy or percutaneous approach. 10. hematuria 11. low back pain PLAN BLOOD AND URINE CULTURES po ANTIBIOTICS CARDIOLOGY CONSULT REVIEWED ECHO UROLOGY FOLLOWING RE STAGHORN RENAL CALCULUS synthroid 100mcg po daily weight loss needed Lantus 10units sq q hs SS INSULIN DVT PROPHYLAXIS LEFT LOWER BACK PAIN SLOW TO IMPROVE proceed with injecting painful left trochanteric bursa and sacroiliac joint INJ to help ease her pain.refused by pt pt/ot continue augmentin until seen at [facility]// UROLOGY d/c to snf today HCR may need extensive rx of stone at [facility] [place] FUT[place]/// Until anatomic abnormality is not resolved pt remains at risk of recurrent utis /sepsis due to large rt renal staghorn calculi 33 MIN PT EXAM,D/C PLANNING FINAL DIAGNOSIS Problems Medical Problems: (1) Accelerated hypertension Status: Acute (2) Chest pain Status: Acute (3) Hyperglycemia Status: Acute (4) Pyelonephritis Status: Acute Brief Hospital Course Ms. Lucas is a 68 old [sex] who presented with [ pyelonephritis/ chest pain ] CONDITION AT DISCHARGE: Improved Discharge Medications Current Medications Metoprolol Tartrate (Lopressor Vial) 5 mg 1X ONCE IVP Last administered on at 23:32; Start 09/25/18 at 23:15; Stop 09/25/18 at 23:16; Status DC Fentanyl Citrate (Fentanyl 2ml Vial) 50 mcg 1X ONCE IV Last administered on at 00:01; Start 09/26/18 at 00:00; Stop 09/26/18 at 00:01; Status DC Hydralazine HCl (Apresoline Inj) 10 mg 1X ONCE IVP Last administered on at 00:35; Start 09/26/18 at 00:30; Stop 09/26/18 at 00:31; Status DC Insulin Human Regular (HumuLIN R VIAL) 6 unit 1X ONCE IV Last administered on 09/26/18at 02:20; Start 09/26/18 at 01:45; Stop 09/26/18 at 01:46; Status DC Ondansetron HCl (Zofran) 4 mg PRN Q8HRS PRN IV NAUSEA/VOMITING; Start 09/26/18 at 01:45; Stop 09/27/18 at 01:44; Status DC Fentanyl Citrate (Fentanyl 2ml Vial) 50 mcg PRN Q1HR PRN IV PAIN Last administered on 09/27/18at 00:02; Start 09/26/18 at 01:45; Stop 09/27/18 at 01:44 ; Status DC Acetaminophen (Tylenol) 650 mg PRN Q4HRS PRN PO FEVER; Start 09/26/18 at 01:45 ; Stop 09/27/18 at 01:44; Status DC Nitroglycerin (Nitrostat) 0.4 mg PRN Q5MIN PRN SL CHEST PAIN; Start 09/26/18 at 01:45; Stop 09/27/18 at 01:44; Status DC Insulin Human Lispro (HumaLOG) 0-7 UNITS TIDWMEALS SQ Last administered on 09/26at 12:18; Start 09/26/18 at 08:00; Stop 09/26/18 at 17:12; Status DC Dextrose (Dextrose 50%-Water Syringe) 12.5 gm PRN Q15MIN PRN IV SEE COMMENTS; Start 09/26/18 at 01:45 Ceftriaxone Sodium (Rocephin) 1 gm 1X ONCE IVP Last administered on 09/26/18at 02:20; Start 09/26/18 at 01:45; Stop 09/26/18 at 01:46; Status DC Clonidine HCl (Catapres) 0.1 mg PRN Q8HRS PRN PO HYPERTENSION, SEE COMMENTS Last administered on 09/26/18at 15:23; Start 09/26/18 at 01:45 Labetalol HCl (Normodyne Iv Push) 20 mg 1X ONCE IVP Last administered on at 03:59; Start 09/26/18 at 03:30; Stop 09/26/18 at 03:32; Status DC Diphenhydramine HCl (Benadryl) 25 mg PRN Q6HRS PRN PO ITCHING Last administered on 09/30/18at 00:17; Start 09/26/18 at 04:30 Levofloxacin/ Dextrose 150 ml @ 100 mls/hr Q24H IV ; Start 09/27/18 at 06:00; Stop 09/27/18 at 06:00; Status DC Levofloxacin/ Dextrose 100 ml @ 100 mls/hr Q24H IV Last administered on at 05:58; Start 09/27/18 at 06:00; Stop 09/27/18 at 19:53; Status DC Aspirin (Robert Aspirin) 325 mg DAILY PO Last administered on 10/01/18 08:20; Start 09/26/18 at 12:00 Metoprolol Succinate (Toprol Xl) 100 mg DAILY PO Last administered on at 12:06; Start 09/26/18 at 12:00; Stop 09/26/18 at 18:29; Status DC Pantoprazole Sodium (Protonix) 40 mg DAILYAC PO Last administered on 10/01/18 08:20; Start 09/26/18 at 12:00 Trazodone HCl (Desyrel) 50 mg QHS PO Last administered on 09/28/18 21:21; Start 09/26/18 at 21:00 Trazodone HCl (Desyrel) 100 mg QHS PO Last administered on 09/30/18 21:30; Start 09/26/18 at 21:00 Citalopram Hydrobromide (CeleXA) 10 mg DAILY PO Last administered on 10/01/18at 08:24; Start 09/26/18 at 12:00 Insulin Human Lispro (HumaLOG) 24 units TIDWMEALS SQ Last administered on at 12:39; Start 09/26/18 at 12:00 Insulin Glargine (Lantus) 74 units QHS SQ Last administered on 09/28/18at 21:28 ; Start 09/26/18 at 21:00; Stop 09/28/18 at 21:38; Status DC Levothyroxine Sodium (Synthroid) 250 mcg DAILY06 PO Last administered on at 12:06; Start 09/26/18 at 12:00; Stop 09/26/18 at 17:02; Status DC Losartan Potassium (Cozaar) 100 mg DAILY PO Last administered on 10/01/18at 08:20 ; Start 09/26/18 at 12:00 Atorvastatin Calcium (Lipitor) 80 mg QHS PO Last administered on 09/30/18at 21: 30; Start 09/26/18 at 21:00 Non-Formulary Medication (Semaglutide (Ozempic)) 0.5 mg QFR SQ ; Start 09/28/18 at 16:00; Status UNV Hydrochlorothiazide (Microzide) 12.5 mg DAILY PO Last administered on at 08:42; Start 09/26/18 at 12:00; Stop 09/27/18 at 10:12; Status DC Iohexol (Omnipaque 350 Mg/ml) 80 ml 1X ONCE IV Last administered on 09/26/18at 13:15; Start 09/26/18 at 13:15; Stop 09/26/18 at 13:16; Status DC Info (CONTRAST GIVEN -- Rx MONITORING) 1 each PRN DAILY PRN MC SEE COMMENTS; Start 09/26/18 at 13:15; Stop 09/28/18 at 13:14; Status DC Magnesium Oxide (Magnesium Oxide) 400 mg 1X ONCE PO Last administered on at 15:23; Start 09/26/18 at 15:00; Stop 09/26/18 at 15:01; Status DC Lactobacillus Rhamnosus (Culturelle) 1 cap BID PO Last administered on at 08:20; Start 09/26/18 at 21:00 Hydralazine HCl (Apresoline Inj) 10 mg PRN Q4HRS PRN IVP ELEVATED BP, SEE COMMENTS Last administered on 09/27/18at 23:59; Start 09/26/18 at 16:45 Insulin Glargine (Lantus) 10 units QHS SQ ; Start 09/26/18 at 21:00; Status UNV Insulin Human Lispro (HumaLOG) 0-5 UNITS TIDWMEALS SQ Last administered on at 12:39; Start 09/26/18 at 17:00 Dextrose (Dextrose 50%-Water Syringe) 12.5 gm PRN Q15MIN PRN IV SEE COMMENTS; Start 09/26/18 at 16:45; Status UNV Levothyroxine Sodium (Synthroid) 100 mcg ONCE ONCE PO Last administered on 17:46; Start 09/26/18 at 17:30; Stop 09/26/18 at 17:31; Status DC Enoxaparin Sodium (Lovenox 40mg Syringe) 40 mg Q24H SQ Last administered on at 17:46; Start 09/26/18 at 17:00; Stop 09/27/18 at 08:33; Status DC Levothyroxine Sodium (Synthroid) 350 mcg DAILY06 PO Last administered on 05:55; Start 09/27/18 at 06:00 Carvedilol (Coreg) 12.5 mg BIDWMEALS PO Last administered on 10/01/18 08:21; Start 09/26/18 at 18:30 Enoxaparin Sodium (Lovenox 60mg Syringe) 60 mg Q12HR SQ Last administered on 08:22; Start 09/27/18 at 09:00 Chlorthalidone (Thalitone) 25 mg DAILY PO Last administered on 10/01/18 08:19; Start 09/27/18 at 11:00 Fentanyl Citrate (Fentanyl 2ml Vial) 50 mcg PRN Q2HR PRN IV PAIN SEVERE Last administered on 09/28/18 21:39; Start 09/27/18 at 10:45 Fentanyl Citrate (Fentanyl 2ml Vial) 25 mcg PRN Q2HR PRN IV PAIN MODERATE Last administered on 09/27/18 13:27; Start 09/27/18 at 10:45 Acetaminophen (Tylenol) 650 mg PRN Q6HRS PRN PO MILD - MODERATE PAIN; Start at 11:00 Potassium Chloride (Klor-Con) 40 meq 1X ONCE PO Last administered on at 16:02; Start 09/27/18 at 15:00; Stop 09/27/18 at 15:01; Status DC Potassium Chloride (Klor-Con) 20 meq DAILYWBKFT PO Last administered on at 08:34; Start 09/28/18 at 08:00; Stop 09/29/18 at 11:26; Status DC Lidocaine (Lidoderm) 1 patch DAILY TD Last administered on 10/01/18 08:18; Start 09/27/18 at 15:00 Miscellaneous (Lidoderm Patch Removal) 1 ea QHS MC Last administered on at 21:00; Start 09/27/18 at 21:00 Amlodipine Besylate (Norvasc) 5 mg 1X ONCE PO ; Start 09/27/18 at 15:30; Stop 09/27/18 at 15:31; Status DC Amlodipine Besylate (Norvasc) 10 mg DAILY PO Last administered on 10/01/18 08: 20; Start 09/28/18 at 09:00 Methylprednisolone Acetate (DEPO-Medrol 40MG VIAL) 40 mg 1X ONCE IM Last administered on 09/28/18 09:00; Start 09/27/18 at 17:45; Stop 09/27/18 at 17:46 ; Status DC Methylprednisolone Acetate (DEPO-Medrol 40MG VIAL) 40 mg 1X ONCE IM Last administered on 09/28/18 09:00; Start 09/27/18 at 17:45; Stop 09/27/18 at 17:46 ; Status DC Bupivacaine HCl (Sensorcaine-Mpf 0.25%) 10 ml 1X ONCE IJ Last administered on 09/28/18 09:00; Start 09/27/18 at 17:45; Stop 09/27/18 at 17:46; Status DC Diclofenac Sodium (Voltaren) 1 clayton BID TP Last administered on 10/01/18 08:19; Start 09/27/18 at 21:00 Piperacillin Sod/ Tazobactam Sod (Zosyn Per Pharmacy) 1 each PRN DAILY PRN MC SEE COMMENTS; Start 09/27/18 at 19:15; Stop 09/30/18 at 09:43; Status DC Piperacillin Sod/ Tazobactam Sod 3.375 gm/Sodium Chloride 50 ml @ 100 mls/hr Q6HRS IV Last administered on 09/29/18at 11:56; Start 09/28/18 at 00:00; Stop at 13:56; Status DC Potassium Chloride (Klor-Con) 40 meq 1X ONCE PO Last administered on at 14:50; Start 09/28/18 at 14:15; Stop 09/28/18 at 14:29; Status DC Potassium Chloride (Klor-Con) 20 meq DAILYWBKFT PO Last administered on at 08:21; Start 09/29/18 at 08:00 Insulin Glargine (Lantus) 64 units QHS SQ Last administered on 09/30/18at 21:33 ; Start 09/29/18 at 21:00 Oxycodone/ Acetaminophen (Percocet 5/325) 1 tab PRN Q4HRS PRN PO SEVERE PAIN Last administered on 09/30/18at 12:51; Start 09/28/18 at 21:45 Amoxicillin/ Clavulanate Potassium (Augmentin 500/ 125mg) 1 tab BID PO Last administered on 10/01/18at 08:19; Start 09/29/18 at 21:00 Insulin Human Lispro (HumaLOG) 24 units QHS SQ Last administered on 09/30/18at 21:32; Start 09/29/18 at 21:30 Active Scripts Active Reported Tresiba Flextouch U-200 (Insulin Degludec) 200 Unit/1 Ml Insuln.pen 64 Unit SQ QHS Ozempic (Semaglutide) 0.25 Mg/0.2 Ml Pen.injctr 0.5 Mg SQ QFR Novolog Flexpen (Insulin Aspart) 100 Unit/1 Ml Insuln.pen 24 Unit SQ TIDWMEALS Levothyroxine Sodium 125 Mcg Tablet 250 Mcg PO DAILYAC Trazodone Hcl 100 Mg Tablet 1 Tab PO QHS Trazodone Hcl 50 Mg Tablet 1 Tab PO QHS Protonix (Pantoprazole Sodium) 40 Mg Tablet.dr 1 Tab PO DAILY Crestor (Rosuvastatin Calcium) 20 Mg Tablet 20 Mg PO HS Aspirin 325 Mg Tablet 1 Tab PO DAILY Losartan-Hctz 100-12.5 Mg Tab (Losartan/Hydrochlorothiazide) 1 Each Tablet 1 Tab PO DAILY Metoprolol Succinate ( Xl ) (Metoprolol Succinate) 100 Mg Tab.er.24h 100 Mg Escitalopram Oxalate 10 Mg Tablet 20 Mg PO DAILY Vital Signs Vital Signs Date Time Temp Pulse Resp B/P (MAP) Pulse Ox O2 Delivery O2 Flow Rate FiO2 10/01/18 11:00 98.0 62 18 141/70 (93) 95 BiPAP/CPAP 98.0 09/30/18 14:20 1.0 Labs Laboratory Tests Test 09/29/18 17:08 09/29/18 20:18 09/30/18 03:20 09/30/18 07:11 Glucose (Fingerstick) 117 mg/dL (70-99) 148 mg/dL (70-99) 162 mg/dL (70-99) White Blood Count 5.4 x10^3/uL (4.0-11.0) Red Blood Count 4.44 x10^6/uL (3.50-5.40) Hemoglobin 13.0 g/dL (12.0-15.5) Hematocrit 40.1 % (36.0-47.0) Mean Corpuscular Volume 90 fL (79-100) Mean Corpuscular Hemoglobin 29 pg (25-35) Mean Corpuscular Hemoglobin Concent 33 g/dL (31-37) Red Cell Distribution Width 14.3 % (11.5-14.5) Platelet Count 128 x10^3/uL (140-400) Neutrophils (%) (Auto) 57 % (31-73) Lymphocytes (%) (Auto) 29 % (24-48) Monocytes (%) (Auto) 10 % (0-9) Eosinophils (%) (Auto) 4 % (0-3) Basophils (%) (Auto) 1 % (0-3) Neutrophils # (Auto) 3.0 x10^3uL (1.8-7.7) Lymphocytes # (Auto) 1.6 x10^3/uL (1.0-4.8) Monocytes # (Auto) 0.5 x10^3/uL (0.0-1.1) Eosinophils # (Auto) 0.2 x10^3/uL (0.0-0.7) Basophils # (Auto) 0.0 x10^3/uL (0.0-0.2) Sodium Level 140 mmol/L (136-145) Potassium Level 3.8 mmol/L (3.5-5.1) Chloride Level 102 mmol/L (98-107) Carbon Dioxide Level 30 mmol/L (21-32) Anion Gap 8 (6-14) Blood Urea Nitrogen 14 mg/dL (7-20) Creatinine 1.1 mg/dL (0.6-1.0) Estimated GFR (Cockcroft-Gault) 49.4 Glucose Level 188 mg/dL (70-99) Calcium Level 9.6 mg/dL (8.5-10.1) Test 09/30/18 12:03 09/30/18 17:07 09/30/18 20:47 10/01/18 03:40 Glucose (Fingerstick) 222 mg/dL (70-99) 112 mg/dL (70-99) 119 mg/dL (70-99) White Blood Count 5.5 x10^3/uL (4.0-11.0) Red Blood Count 4.36 x10^6/uL (3.50-5.40) Hemoglobin 12.7 g/dL (12.0-15.5) Hematocrit 39.5 % (36.0-47.0) Mean Corpuscular Volume 91 fL (79-100) Mean Corpuscular Hemoglobin 29 pg (25-35) Mean Corpuscular Hemoglobin Concent 32 g/dL (31-37) Red Cell Distribution Width 14.2 % (11.5-14.5) Platelet Count 131 x10^3/uL (140-400) Neutrophils (%) (Auto) 58 % (31-73) Lymphocytes (%) (Auto) 28 % (24-48) Monocytes (%) (Auto) 10 % (0-9) Eosinophils (%) (Auto) 4 % (0-3) Basophils (%) (Auto) 1 % (0-3) Neutrophils # (Auto) 3.2 x10^3uL (1.8-7.7) Lymphocytes # (Auto) 1.5 x10^3/uL (1.0-4.8) Monocytes # (Auto) 0.5 x10^3/uL (0.0-1.1) Eosinophils # (Auto) 0.2 x10^3/uL (0.0-0.7) Basophils # (Auto) 0.0 x10^3/uL (0.0-0.2) Test 10/01/18 07:55 10/01/18 12:03 Glucose (Fingerstick) 168 mg/dL (70-99) 173 mg/dL (70-99) Laboratory Tests Test 09/30/18 17:07 09/30/18 20:47 10/01/18 03:40 10/01/18 07:55 Glucose (Fingerstick) 112 mg/dL (70-99) 119 mg/dL (70-99) 168 mg/dL (70-99) White Blood Count 5.5 x10^3/uL (4.0-11.0) Red Blood Count 4.36 x10^6/uL (3.50-5.40) Hemoglobin 12.7 g/dL (12.0-15.5) Hematocrit 39.5 % (36.0-47.0) Mean Corpuscular Volume 91 fL (79-100) Mean Corpuscular Hemoglobin 29 pg (25-35) Mean Corpuscular Hemoglobin Concent 32 g/dL (31-37) Red Cell Distribution Width 14.2 % (11.5-14.5) Platelet Count 131 x10^3/uL (140-400) Neutrophils (%) (Auto) 58 % (31-73) Lymphocytes (%) (Auto) 28 % (24-48) Monocytes (%) (Auto) 10 % (0-9) Eosinophils (%) (Auto) 4 % (0-3) Basophils (%) (Auto) 1 % (0-3) Neutrophils # (Auto) 3.2 x10^3uL (1.8-7.7) Lymphocytes # (Auto) 1.5 x10^3/uL (1.0-4.8) Monocytes # (Auto) 0.5 x10^3/uL (0.0-1.1) Eosinophils # (Auto) 0.2 x10^3/uL (0.0-0.7) Basophils # (Auto) 0.0 x10^3/uL (0.0-0.2) Test 10/01/18 12:03 Glucose (Fingerstick) 173 mg/dL (70-99) Allergies Allergies Coded Allergies Type Severity Reaction Last Updated Verified ciprofloxacin Allergy Intermediate TENDONITIS 09/30/18 Yes morphine Allergy Intermediate tolerates Dilaudid & Percocet 09/11/16 Yes ceftriaxone Allergy Mild rash 09/27/18 Yes lovastatin Adverse Reaction Intermediate CAUSES MUSCLE SPASMS 09/11/16 Yes Disposition/Orders: Other (d/c to snf bed) Patient Instructions d/c planning 37 min NIKITA DU MD Oct 01, 2018 14:28
[2018-10-01 14:38] VITALS: BP 151/72
[2018-10-01] MEDS ORDERED: CARV12.511 PO (14:40)
[2018-10-01] MEDS ORDERED: ATOR40TA59 PO (14:40)
[2018-10-01] MEDS ORDERED: CLON0.1T12 PO (14:40)
[2018-10-01] MEDS ORDERED: LIDO700A39 TD (14:40)
[2018-10-01] MEDS ORDERED: AMLO10TA8 PO (14:40)
[2018-10-01] MEDS ORDERED: LACT1CAP19 PO (14:40)
[2018-10-01] MEDS ORDERED: POTA20TA4 PO (14:40)
[2018-10-01] MEDS ORDERED: CHLO25TA10 PO (14:40)
[2018-10-01] MEDS ORDERED: AMOX1TAB10 PO (14:40)
[2018-10-01] MEDS ORDERED: OXYC1TAB15 PO (14:40)
[2018-10-01] MEDS ORDERED: ACET325T9 PO (14:40)
--- NOTE | 2018-10-01 14:41 | SNU/HH DC ---
DISCHARGE ORDERS DISCHARGE INFORMATION: FINAL DIAGNOSIS Problems Medical Problems: (1) Accelerated hypertension Status: Acute (2) Chest pain Status: Acute (3) Hyperglycemia Status: Acute (4) Pyelonephritis Status: Acute CONDITION ON DISCHARGE: Stable CODE STATUS: Code Status: Full MCFP: SNF STAY <30 DAYS: Yes HOSPICE: HOSPICE: No HOSPICE EVAL & TREAT: No LTAC: ADMIT TO LTAC: No POST DISCHARGE ORDERS: ACTIVITY ORDERS: Activity as tolerated WEIGHT BEARING STATUS: As tolerated DIET AFTER DISCHARGE: ADA WOUND/INCISION CARE: No wound care needed CHECKS AFTER DISCHARGE: CHECKS AFTER DISCHARGE: Check blood sugar, ac/hs TREATMENT/EQUIPMENT ORDERS: Physical Therapy For: Evalulation/Treatment Occupational Therapy For: Evaluation/Treatment DISCHARGE MEDICATIONS: Home Meds Reported Medications Insulin Degludec (Tresiba Flextouch U-200) 200 Unit/1 Ml Insuln.pen, 64 UNIT SQ QHS for hyperglycemia, EACH 09/26/18 Semaglutide (Ozempic) 0.25 Mg/0.2 Ml Pen.injctr, 0.5 MG SQ QFR for hyperglycemia , EACH 09/26/18 Insulin Aspart (NOVOLOG FLEXPEN) 100 Unit/1 Ml Insuln.pen, 24 UNIT SQ TIDWMEALS for hyperglycemia, SYR 09/26/18 Levothyroxine Sodium (LEVOTHYROXINE SODIUM) 125 Mcg Tablet, 250 MCG PO DAILYAC for THYROID SUPPLEMENT, #30 TAB 0 Refills 09/26/18 Trazodone Hcl (TRAZODONE HCL) 100 Mg Tablet, 1 TAB PO QHS for , #30 TAB 1 Refill 09/26/18 Trazodone Hcl (TRAZODONE HCL) 50 Mg Tablet, 1 TAB PO QHS for , #30 TAB 1 Refill 09/26/18 Pantoprazole Sodium (PROTONIX) 40 Mg Tablet.dr, 1 TAB PO DAILY, #30 TAB 5 Refills 02/08/17 Rosuvastatin Calcium (CRESTOR) 20 Mg Tablet, 20 MG PO HS for FOR CHOLESTEROL, # 30 TAB 0 Refills 02/08/17 Aspirin (ASPIRIN) 325 Mg Tablet, 1 TAB PO DAILY, #30 TAB 5 Refills 02/07/17 Losartan/Hydrochlorothiazide (LOSARTAN-HCTZ 100-12.5 MG TAB) 1 Each Tablet, 1 TAB PO DAILY for hypertension, #30 09/09/16 Metoprolol Succinate (METOPROLOL SUCCINATE ( XL )) 100 Mg Tab.er.24h, 100 MG, # 30 09/09/16 Escitalopram Oxalate (ESCITALOPRAM OXALATE) 10 Mg Tablet, 20 MG PO DAILY for , #30 TAB 0 Refills 01/24/14 Discontinued Reported Medications Insulin Lispro (Humalog Kwikpen) 200 Unit/1 Ml Insuln.pen, 26 UNIT SQ TIDWMEALS 09/10/16 Insulin Glargine,Hum.rec.anlog (Toujeo Solostar) 300 Unit/1 Ml Insuln.pen, 46 UNIT SQ HS PRN for SEE COMMENTS 09/10/16 Metformin Hcl (METFORMIN HCL) 1,000 Mg Tablet, 1 TAB PO BID, #60 TAB 5 Refills 09/10/16 Levothyroxine Sodium (LEVOTHYROXINE SODIUM) 200 Mcg Tablet, 500 MCG PO DAILYAC for THYROID SUPPLEMENT 09/10/16 NIKITA DU MD Oct 01, 2018 14:41
--- NOTE | 2018-10-01 14:54 | NUR ---
SS following up with discharge planning. Discharge orders received. SS phoned and faxed discharge orders to [facility], ; fax [phone]. Pt will discharge today and go to [facility] at 1700. [facility] to provide transportation. Pt and pt's RN notified.
[2018-10-01 17:10] VITALS: BP 151/72
--- NOTE | 2018-10-01 17:10 | NUR ---
Discharge Note: BENNY LIPSCOMB Discharge instructions and discharge home medications reviewed with Other facility and a copy given. All questions have been answered and understanding verbalized. The following instructions and handouts were given: CP, pyelonephritis, HTN, hyperglycemia, UTI Discontinued lines and drains: Peripheral IV intact. Patient discharged to [facility] with wheelchair van personnel via [facility]
[2018-10-01] MEDS: oxyCODONE/APAP 5/325 1 TAB TABLET PO PRN (17:11)
== END 2018-10-01 17:10 | DRG 871 ==
LOC: ER 20:58 → 2 NORTH 09-26 01:29
PROVIDERS: ADMIT Family Medicine; ATTEND Family Medicine
PROC: 5A09357 Assistance with Respiratory Ventilation, Less than 24 Consecutive Hours, Continuous Positive Airway Pressure (ICD-10-PCS; principal; 2018-09-26)
PROC: 5A09357 Assistance with Respiratory Ventilation, Less than 24 Consecutive Hours, Continuous Positive Airway Pressure (ICD-10-PCS; 2018-09-27)
PROC: 5A09357 Assistance with Respiratory Ventilation, Less than 24 Consecutive Hours, Continuous Positive Airway Pressure (ICD-10-PCS; 2018-09-28)
PROC: 5A09357 Assistance with Respiratory Ventilation, Less than 24 Consecutive Hours, Continuous Positive Airway Pressure (ICD-10-PCS; 2018-09-29)
PROC: 5A09357 Assistance with Respiratory Ventilation, Less than 24 Consecutive Hours, Continuous Positive Airway Pressure (ICD-10-PCS; 2018-09-30)
PROC: 5A09357 Assistance with Respiratory Ventilation, Less than 24 Consecutive Hours, Continuous Positive Airway Pressure (ICD-10-PCS; 2018-10-01)
DX: A41.89 Other specified sepsis (principal); E11.00 Type 2 diabetes mellitus with hyperosmolarity without nonketotic hyperglycemic-hyperosmolar coma (NKHHC); E46 Unspecified protein-calorie malnutrition; N10 Acute pyelonephritis; Z68.43 Body mass index [BMI] 50.0-59.9, adult; E03.9 Hypothyroidism, unspecified; D69.6 Thrombocytopenia, unspecified; E11.65 Type 2 diabetes mellitus with hyperglycemia; E66.01 Morbid (severe) obesity due to excess calories; E78.5 Hyperlipidemia, unspecified; E88.81 Metabolic syndrome and other insulin resistance; F32.9 Major depressive disorder, single episode, unspecified; F41.9 Anxiety disorder, unspecified; G47.33 Obstructive sleep apnea (adult) (pediatric); G89.29 Other chronic pain; I16.0 Hypertensive urgency; I71.2 Thoracic aortic aneurysm, without rupture; K21.9 Gastro-esophageal reflux disease without esophagitis; K59.00 Constipation, unspecified; K76.0 Fatty (change of) liver, not elsewhere classified; M19.90 Unspecified osteoarthritis, unspecified site; I10 Essential (primary) hypertension; M47.816 Spondylosis without myelopathy or radiculopathy, lumbar region; M70.62 Trochanteric bursitis, left hip; M70.61 Trochanteric bursitis, right hip; M17.0 Bilateral primary osteoarthritis of knee; E11.42 Type 2 diabetes mellitus with diabetic polyneuropathy; M51.36 Other intervertebral disc degeneration, lumbar region; M77.9 Enthesopathy, unspecified; N13.9 Obstructive and reflux uropathy, unspecified; N20.0 Calculus of kidney; R07.89 Other chest pain; T36.1X5A Adverse effect of cephalosporins and other beta-lactam antibiotics, initial encounter; L27.0 Generalized skin eruption due to drugs and medicaments taken internally; Y92.239 Unspecified place in hospital as the place of occurrence of the external cause; Z82.49 Family history of ischemic heart disease and other diseases of the circulatory system; Z85.42 Personal history of malignant neoplasm of other parts of uterus; Z85.43 Personal history of malignant neoplasm of ovary; Z86.73 Personal history of transient ischemic attack (TIA), and cerebral infarction without residual deficits; Z87.440 Personal history of urinary (tract) infections; Z90.710 Acquired absence of both cervix and uterus; Z91.11 Patient's noncompliance with dietary regimen; Z91.14 Patient's other noncompliance with medication regimen; Z91.19 Patient's noncompliance with other medical treatment and regimen; Z90.49 Acquired absence of other specified parts of digestive tract; Z79.899 Other long term (current) drug therapy; Z88.8 Allergy status to other drugs, medicaments and biological substances
CPT/HCPCS: 36415; 71045; 71275; 74150; 74174; 80048; 80053; 80061; 81001; 82553; 82962; 83036; 83735; 84443; 84484; 85025; 87086; 87186; 93005; 93306; 96374; 96375; J0360; J0696; J1030; J1650; J1815; J1956; J2543; J3010; J3490; Q0163; Q9967; 97110; 97116; 97530; 97535; 99285-25

== ENCOUNTER 2018-11-16 15:07 | Inpatient (IN) | payer MEDICARE ==
[~2018-11-16] VITALS: Ht 165.1 cm; Wt 138.8 kg
[2018-11-16] VITALS (8 sets, daily range): BP systolic 96–118; BP diastolic 43–60
[~2018-11-16 15:07] MED LIST changes: +ACET325T9 PO; +AMLO10TA8 PO; +AMOX1TAB10 PO; +ATOR40TA59 PO; +CARV12.511 PO; +CHLO25TA10 PO; +CLON0.1T12 PO; +INSU100I17 SQ; +INSU200I4 SQ; +LACT1CAP19 PO; +LEVO125T5 PO; +LIDO700A39 TD; +OXYC1TAB15 PO; +POTA20TA4 PO; +SEMA0.25 SQ; +TRAZ-118 PO; +TRAZ-86 PO
[2018-11-16] MEDS ORDERED: IV NORMAL SALINE 1000ML BAG 1,000 ML IV ONE ×3 (17:00→20:45)
[2018-11-16 17:08] LABS: BASO % 0 % (0-3); EOS % 0 % (0-3); HEMATOCRIT 34.8 % (36.0-47.0); HEMOGLOBIN 11.4 g/dL (12.0-15.5); LYMPH # 0.6 x10^3/uL (1.0-4.8); LYMPH % 4 % (24-48); MEAN CORPUSCULAR HEMOGLOBIN 29 pg (25-35); MEAN CORPUSCULAR HGB CONC 33 g/dL (31-37); MEAN CORPUSCULAR VOLUME 87 fL (79-100); MONO # 1.3 x10^3/uL (0.0-1.1); MONO % 8 % (0-9); NEUT # 14.1 x10^3uL (1.8-7.7); NEUT % 88 % (31-73); PLATELET COUNT 95 x10^3/uL (140-400); RED BLOOD COUNT 3.98 x10^6/uL (3.50-5.40)
[2018-11-16 17:11] LABS: BILIRUBIN,URINE SMALL (NEG); CLARITY,URINE TURBID; COLOR,URINE RED; NITRITE,URINE NEGATIVE (NEG); PH,URINE 5.5; PROTEIN,URINE >=300 mg/dL (NEG-TRACE)
[2018-11-16 17:17] LABS: PROTHROMBIN TIME PATIENT 14.7 SEC (11.7-14.0)
[2018-11-16 17:18] LABS: WBC,URINE TNTC /HPF (0-4)
[2018-11-16 17:19] LABS: BACTERIA,URINE MODERATE /HPF (0-FEW); SQUAMOUS EPITHELIAL CELL,UR OCC /LPF
[2018-11-16 17:19] LABS: CALCIUM 9.7 mg/dL (8.5-10.1); GFR 24.8; POTASSIUM 3.4 mmol/L (3.5-5.1)
[2018-11-16 17:24] LABS: ALBUMIN 2.8 g/dL (3.4-5.0); ALBUMIN/GLOBULIN RATIO 0.6 (1.0-1.7); MAGNESIUM 1.4 mg/dL (1.8-2.4); TOTAL BILIRUBIN 0.8 mg/dL (0.2-1.0); TOTAL PROTEIN 7.3 g/dL (6.4-8.2)
--- NOTE | 2018-11-16 17:24 | PHYS DOC ---
Past Medical History Past Medical History: Cancer, Depression, Diabetes-Type II, Heart Disease, Hypertension, Hypothyroid, Other Additional Past Medical Histor: uterine CA, KARENA (DANICA LIRIANO) Past Surgical History: Cancer Surgery, Cholecystectomy, Other Additional Past Surgical Histo: arthrocopic knee, 2 heart caths (DANICA LIRIANO) Alcohol Use: None Drug Use: None (DANICA LIRIANO) Adult General Chief Complaint Chief Complaint: ABDOMINAL PAIN HPI HPI Patient is a 68 year old F who underwent lithotripsy on Monday of this week (3 d ago) by Dr. Cazares at [facility]. She states it was an outpt procedure and she went home and has been feeling more and more discomfort in her R flank and low abd and today was having chills. She is currently on Clindamycin. She has multiple drug allergies. When I asked what her reaction to Rocephin is, she replied a rash. I discussed trying the Rocephin along with some Benadryl and she was in agreement with this plan. Her urine was collected by straight cath while I was in the room and appears to look like thick purulent urine. Pt is normotensive on arrival with mild tachycardia in the 90's and appears ill. She is awake and alert. Her tells me that she has become septic prior and they were concerned about infection. (DANICA LIRIANO) Review of Systems Review of Systems Constitutional: Reports chills. HENT: Denies nasal congestion or sore throat Respiratory: Reports mild cough. Cardiovascular: Denies chest pain. GI: Reports abdominal pain, nausea, vomiting, bloody stools or diarrhea. Reports constipation. : Reports increased urination. Musculoskeletal: Reports R flank pain. Integument: Denies rash or skin lesions Neurologic: Denies headache, focal weakness or sensory changes All other systems were reviewed and found to be within normal limits, except as documented in this note. (DANICA LIRIANO) Current Medications Current Medications Current Medications Medications (Trade) Dose Ordered Sig/Nader Start Time Stop Time Status Last Admin Dose Admin Acetaminophen (Tylenol) 650 mg PRN Q6HRS PRN 11/16/18 18:00 UNV Amlodipine Besylate (Norvasc) 10 mg DAILY 11/17/18 09:00 UNV Aspirin (Robert Aspirin) 325 mg DAILY 11/17/18 09:00 UNV Atorvastatin Calcium (Lipitor) 80 mg QHS 11/16/18 21:00 UNV Carvedilol (Coreg) 12.5 mg BIDWMEALS 11/17/18 08:00 UNV Ceftriaxone Sodium (Rocephin) 1 gm 1X ONCE 11/16/18 18:00 11/16/18 18:01 DC 11/16/18 17:30 1 GM Chlorthalidone (Thalitone) 25 mg DAILY 11/17/18 09:00 UNV Clonidine HCl (Catapres) 0.1 mg PRN Q8HRS PRN 11/16/18 18:00 UNV Dextrose (Dextrose 50%-Water Syringe) 12.5 gm PRN Q15MIN PRN 11/16/18 18:00 UNV Diphenhydramine HCl (Benadryl) 12.5 mg 1X ONCE 11/16/18 18:00 11/16/18 18:01 DC 11/16/18 17:30 12.5 MG Heparin Sodium (Porcine) (Heparin Sodium) 5,000 unit Q12HR 11/16/18 21:00 UNV Info (Icu Electrolyte Protocol) 1 ea DAILY 11/17/18 09:00 UNV Insulin Human Lispro (HumaLOG) 0-7 UNITS TIDWMEALS 11/17/18 08:00 UNV Insulin Human Regular (HumuLIN R VIAL) 6 unit 1X ONCE 11/16/18 17:45 11/16/18 17:47 DC 11/16/18 17:58 6 UNIT Lactobacillus Rhamnosus (Culturelle) 1 cap BID 11/16/18 21:00 UNV Lactulose (Lactulose) 20 gm PRN Q12HR PRN 11/16/18 18:00 UNV Lorazepam (Ativan Inj) 0.5 mg PRN Q6HRS PRN 11/16/18 18:00 UNV Non-Formulary Medication (Escitalopram Oxalate ) 20 mg DAILY 11/17/18 09:00 UNV Non-Formulary Medication (Insulin Degludec (Tresiba Flextouch U-200)) 64 unit QHS 11/16/18 21:00 UNV Non-Formulary Medication (Insulin Aspart (Novolog Flexpen)) 24 unit TIDWMEALS 11/17/18 08:00 UNV Non-Formulary Medication (Levothyroxine Sodium ) 250 mcg DAILYAC 11/17/18 07:30 UNV Non-Formulary Medication (Lidocaine ) 1 patch DAILY 11/17/18 09:00 UNV Non-Formulary Medication (Losartan/ Hydrochlorothiazide (Losartan-Hctz 100-12.5 Mg Tab)) 1 tab DAILY 11/17/18 09:00 UNV Non-Formulary Medication (Semaglutide (Ozempic)) 0.5 mg QFR 11/23/18 16:00 UNV Non-Formulary Medication (Trazodone Hcl ) 1 tab QHS 11/16/18 21:00 UNV Ondansetron HCl (Zofran) 4 mg PRN Q6HRS PRN 11/16/18 18:00 UNV Oxycodone/ Acetaminophen (Percocet 5/325) 1 tab PRN Q4HRS PRN 11/16/18 18:00 UNV Pantoprazole Sodium (Protonix) 40 mg DAILY 11/17/18 09:00 UNV Potassium Chloride (Klor-Con) 20 meq DAILYWBKFT 11/17/18 08:00 UNV Sodium Chloride 1,000 ml @ 100 mls/hr Q10H 11/16/18 17:56 UNV Sodium Chloride (Normal Saline Flush) 3 ml QSHIFT PRN 11/16/18 18:00 UNV Trazodone HCl (Desyrel) 100 mg QHS 11/16/18 21:00 UNV Zolpidem Tartrate (Ambien) 5 mg PRN QHS PRN 11/16/18 18:00 UNV (LUDY CARR DO) Allergies Allergies Allergies Coded Allergies Type Severity Reaction Last Updated Verified ceftriaxone Allergy Intermediate rash 11/16/18 Yes cephalexin Allergy Intermediate RASH 11/16/18 Yes levofloxacin Allergy Intermediate RASH 11/16/18 Yes morphine Allergy Intermediate tolerates Dilaudid & Percocet 09/11/16 Yes ciprofloxacin Adverse Reaction Intermediate TENDONITIS 11/16/18 Yes lovastatin Adverse Reaction Intermediate CAUSES MUSCLE SPASMS 09/11/16 Yes (LUDY CARR DO) Physical Exam Physical Exam Constitutional: Well developed, well nourished, no acute distress. Appears ill. Uncomfortable. HENT: Normocephalic, atraumatic, bilateral external ears normal, oropharynx moist, no oral exudates, nose normal. Neck: Normal range of motion, no tenderness, supple, no stridor. Cardiovascular:Heart rate regular rhythm, no murmur Lungs & Thorax: Bilateral breath sounds clear to auscultation Abdomen: Bowel sounds hypoactive, soft, diffuse tenderness and suprapubic pain, no masses, no pulsatile masses. Skin: Warm, dry, no erythema, no rash. Back: R flank pain Extremities: No tenderness, no cyanosis, no clubbing, ROM intact, no edema. Neurologic: Alert and oriented X 3, normal motor function, normal sensory function, no focal deficits noted. Psychologic: Affect normal, judgement normal, mood normal. (DANICA LIRIANO) Current Patient Data Vital Signs Vital Signs Date Time Temp Pulse Resp B/P (MAP) Pulse Ox O2 Delivery O2 Flow Rate FiO2 11/16/18 17:50 80 106/56 (73) 93 Room Air 11/16/18 16:51 98.2 20 98.2 (LUDY CARR DO) Lab Values Laboratory Tests Test 11/16/18 16:45 11/16/18 16:57 Urine Color Red Urine Clarity Turbid Urine pH 5.5 Urine Specific [place] 1.020 Urine Protein >=300 mg/dL (NEG-TRACE) Urine Glucose (UA) 100 mg/dL (NEG) Urine Ketones (Stick) Trace mg/dL (NEG) Urine Blood Large (NEG) Urine Nitrite Negative (NEG) Urine Bilirubin Small (NEG) Urine Urobilinogen Dipstick 1.0 mg/dL (0.2 mg/dL) Urine Leukocyte Esterase Large (NEG) Urine RBC 11-20 /HPF (0-2) Urine WBC Tntc /HPF (0-4) Urine Squamous Epithelial Cells Occ /LPF Urine Bacteria Moderate /HPF (0-FEW) White Blood Count 16.0 x10^3/uL (4.0-11.0) H Red Blood Count 3.98 x10^6/uL (3.50-5.40) Hemoglobin 11.4 g/dL (12.0-15.5) L Hematocrit 34.8 % (36.0-47.0) L Mean Corpuscular Volume 87 fL (79-100) Mean Corpuscular Hemoglobin 29 pg (25-35) Mean Corpuscular Hemoglobin Concent 33 g/dL (31-37) Red Cell Distribution Width 14.0 % (11.5-14.5) Platelet Count 95 x10^3/uL (140-400) L Neutrophils (%) (Auto) 88 % (31-73) H Lymphocytes (%) (Auto) 4 % (24-48) L Monocytes (%) (Auto) 8 % (0-9) Eosinophils (%) (Auto) 0 % (0-3) Basophils (%) (Auto) 0 % (0-3) Neutrophils # (Auto) 14.1 x10^3uL (1.8-7.7) H Lymphocytes # (Auto) 0.6 x10^3/uL (1.0-4.8) L Monocytes # (Auto) 1.3 x10^3/uL (0.0-1.1) H Eosinophils # (Auto) 0.0 x10^3/uL (0.0-0.7) Basophils # (Auto) 0.0 x10^3/uL (0.0-0.2) Platelet Estimate Pending Prothrombin Time 14.7 SEC (11.7-14.0) H Prothrombin Time INR 1.2 (0.8-1.1) H PTT 34 SEC (24-38) Sodium Level 128 mmol/L (136-145) L Potassium Level 3.4 mmol/L (3.5-5.1) L Chloride Level 90 mmol/L (98-107) L Carbon Dioxide Level 23 mmol/L (21-32) Anion Gap 15 (6-14) H Blood Urea Nitrogen 25 mg/dL (7-20) H Creatinine 2.0 mg/dL (0.6-1.0) H Estimated GFR (Cockcroft-Gault) 24.8 BUN/Creatinine Ratio 13 (6-20) Glucose Level 324 mg/dL (70-99) H Lactic Acid Level 3.9 mmol/L (0.4-2.0) H Calcium Level 9.7 mg/dL (8.5-10.1) Magnesium Level 1.4 mg/dL (1.8-2.4) L Total Bilirubin 0.8 mg/dL (0.2-1.0) Aspartate Amino Transferase (AST) 26 U/L (15-37) Alanine Aminotransferase (ALT) 37 U/L (14-59) Alkaline Phosphatase 91 U/L (46-116) Total Protein 7.3 g/dL (6.4-8.2) Albumin 2.8 g/dL (3.4-5.0) L Albumin/Globulin Ratio 0.6 (1.0-1.7) L Laboratory Tests 11/16/18 16:57 Laboratory Tests 11/16/18 16:57 (LUDY CARR DO) EKG EKG [] (DANICA LIRIANO) Radiology/Procedures Radiology/Procedures [] (DANICA LIRIANO) Course & Med Decision Making Course & Med Decision Making Pertinent Labs and Imaging studies reviewed. (See chart for details) Pt meeting sepsis criteria with mild tachycardia, subjective fever, leukocytosis, lactic acidosis and loaded urinary tract infection. Her IV fluid bolus was based on ideal weight, rather then 30ml/kg since she is not hypotensive. She was given Rocephin with Benadryl and tolerated it while in ER and then we added Vancomycin. Pt also with high blood sugar, low magnesium. Pt admitted to ICU for close observation and treatment. Spoke with hospitalist, Dr. Kuhn, by phone and then when he was at bedside. Pt stable but ill. (DANICA LIRIANO) Dragon Disclaimer Dragon Disclaimer This electronic medical record was generated, in whole or in part, using a voice recognition dictation system. (DANICA LIRIANO) Departure Departure Impression: Primary Impression: Urinary tract infection Additional Impression: Sepsis Disposition: 09 ADMITTED INPATIENT Admitting Physician: Stephen Menon Other (Bam) (DANICA LIRIANO) Condition: STABLE Referrals: MEI MOCK MD (PCP) Date and Time of Reassessment Date: Oct 14, 2014 (LUDY CARR DO) Time: 18:00 (DANICA LIRIANO) Fluid Challenge Is the fluid challenge complet: No (fluids given based on ideal body weight since she is not hypotensive) (DANICA LIRIANO) Vital Signs Vital Signs: Vital Signs Date Time Temp Pulse Resp B/P (MAP) Pulse Ox O2 Delivery O2 Flow Rate FiO2 11/16/18 17:50 80 106/56 (73) 93 Room Air 11/16/18 16:51 98.2 20 98.2 (DANICA LIRIANO) Temperature Source: Oral (LUDY CARR DO) Temperature Source: Oral (DANICA LIRIANO) Respirations Respiratory Pattern: Normal (DANICA LIRIANO) Cardiovascular Pulse Rhythm: Regular Heart: Nml rate, reg. rhythm (DANICA LIRIANO) Lung Sounds Breath Sounds: Diminished (DANICA LIRIANO) Capillary Refil Capillary Refill: Rt Hand > 3 seconds (DANICA LIRIANO) Peripheral Pulse Pulse Assessment Method: Monitor (LUDY CARR DO) Pulse Location: Radial Pulse Strength: Normal (2+) Pulse Assessment Method: Monitor (DANICA LIRIANO) Integumentary Skin Moisture: Dry (LUDY CARR DO) Skin: Warm, Dry Skin Moisture: Dry Skin Turgor: Normal Skin Color: warm Fingernail Color: WNL (DANICA LIRIANO) Problem Qualifiers DANICA LIRIANO November 16, 2018 17:24 CARRLUDY LUCAS DO November 16, 2018 18:12
[2018-11-16] MEDS ORDERED: POTASSIUM CHLORIDE 20 MEQ TABLET.ER. PO ONE (17:45)
[2018-11-16] MEDS ORDERED: INSULIN REGULAR 100 UNIT/ML 3ML VIAL. IV ONE (17:45)
[2018-11-16] MEDS ORDERED: cloNIDine HCL 0.1 MG TABLET PO PRN (18:00)
[2018-11-16] MEDS ORDERED: DEXTROSE 50% 25 GM / 50ML DISP.SYRIN. IV PRN ×2 (18:00→18:15)
[2018-11-16] MEDS ORDERED: cefTRIAXone IV Push 1 GM VIAL. IVP ONE (18:00)
[2018-11-16] MEDS ORDERED: ONDANSETRON PF 4 MG/2 ML VIAL. IV PRN (18:00)
[2018-11-16] MEDS ORDERED: diphenhydrAMINE 50 MG/ML VIAL IVP ONE (18:00)
[2018-11-16] MEDS ORDERED: 0.9 % SODIUM CHLORIDE 10 ML DISP.SYRIN. IV PRN (18:00)
[2018-11-16] MEDS ORDERED: ZOLPIDEM 5 MG TABLET. PO PRN (18:00)
[2018-11-16] MEDS ORDERED: LACTULOSE 20 GM/30 ML SOLUTION. PO PRN (18:00)
[2018-11-16] MEDS ORDERED: MAGNESIUM SULFATE 2GM 50 ML IV ONE (18:15)
[2018-11-16] MEDS: CARVEDILOL 12.5 MG TABLET. PO SCH (18:30)
[2018-11-16 18:31] LABS: % LYMPHS 3 % (24-48); % MONOS 9 % (0-10); % SEGS 88 % (35-66)
[2018-11-16 18:38] LABS: PLT ESTIMATE DECREASED (ADEQUATE)
[2018-11-16 18:39] LABS: ANISOCYTOSIS SLIGHT; POLYCHROMASIA SLIGHT
[2018-11-16] MEDS ORDERED: VANCOMYCIN 2 GM in IV NORMAL SALINE 500ML BAG 500 ML IV ONE (19:00)
--- NOTE | 2018-11-16 20:00 | NUR ---
Pt admitted to [facility] from ED for urosepsis. Pt recieving fluid bolus per sepsis protocol. Pt alert and oriented. Denies pain. VSS. Family at bedside.
--- NOTE | 2018-11-16 20:25 | RAD ---
CT scan of the abdomen and pelvis without contrast 11/16/2018 CLINICAL HISTORY: Patient had lithotripsy 3 days ago. Purulent urine and sepsis. TECHNIQUE: Unenhanced, contiguous, 2 mm axial sections were obtained through the abdomen and pelvis. One or more of the following individualized dose reduction techniques were utilized for this study: 1. Automated exposure control. 2. Adjustment of the mA and/or kV according to patient size. 3. Use of iterative reconstruction technique. FINDINGS: Comparison study is dated 09/25/2018. Images through the lung bases demonstrate mild cardiomegaly. Dependent subsegmental atelectasis is seen involving both lower lobes. The liver parenchyma has a decreased attenuation consistent with fatty infiltration. The spleen, pancreas and right adrenal gland are within normal limits. Fullness of the left adrenal gland is seen, unchanged. A double-J ureteral stent has been placed in the right renal pelvis. This extends into the urinary bladder. A 2 cm nonobstructing calculus is seen involving the lower pole of the right kidney. A 3 cm nonobstructing calculus is seen involving the mid/lower pole the right kidney. Small collections of air are seen within the right intrarenal collecting system consistent with recent stent placement. Nonobstructing left renal calculi are seen which measure 3 mm to 1.1 cm in size. The right renal calculi have been fragmented and have decreased in size since the previous study consistent with lithotripsy. Mild dilatation of the right intrarenal collecting system is seen. There is no evidence of obstruction of the left collecting system. Atherosclerotic calcification of the abdominal aorta is seen. The abdominal aorta tapers normally. A stimulator is seen within the right gluteal region. Surgical clips are seen within the gallbladder fossa consistent with cholecystectomy. No free fluid or free air is seen within the abdomen. There is no evidence of bowel obstruction. Images through the pelvis demonstrate the urinary bladder distended with urine. Small amount of air is seen within the anterior aspect of the urinary bladder. Small bladder calculi are seen which measure 2 to 3 mm in size. Multiple diverticula are seen involving the sigmoid colon. No inflammatory changes are seen in the adjacent fat. A moderate amount of stool is seen within the rectum. No free fluid is seen. The osseous structures are unchanged. IMPRESSION: Interval placement of a double-J ureteral stent into the right collecting system. There has been interval decrease in size of the right renal calculi consistent with the patient's history of lithotripsy. Mild fullness of the right intrarenal collecting system is seen. No hematoma or abnormal fluid collection is noted. Electronically signed by: Selvin Henriquez MD (11/16/2018 8:22 PM) [facility]
[2018-11-16] MEDS: IV NORMAL SALINE 1000ML BAG 1,000 ML IV SCH (20:47)
[2018-11-16] MEDS ORDERED: INSULIN GLARGINE 300 UNITS/3 ML INSULN.PEN. SQ SCH (21:00)
[2018-11-16] MEDS: LACTOBACILLUS RHAMNOSUS GG 1 CAPSULE. PO SCH (21:22)
[2018-11-16] MEDS: ATORVASTATIN CALCIUM 40 MG TABLET. PO SCH (21:22)
[2018-11-16] MEDS: traZODone 100 MG TABLET. PO SCH (21:22)
[2018-11-16] MEDS: HEPARIN for SUB-Q USE 5,000 UNIT/ML VIAL. SQ SCH (21:28)
[2018-11-16] MEDS: traZODone 50 MG TABLET. PO SCH (21:29)
[2018-11-16] MEDS ORDERED: INSU100C4 SQ (22:20)
[2018-11-16] MEDS ORDERED: INSU100I30 SQ (22:21)
[2018-11-16] MEDS: oxyCODONE/APAP 5/325 1 TAB TABLET PO PRN (22:38)
--- NOTE | 2018-11-16 22:52 | PDOC1 ---
History and Physical Date of Admission Date of Admission 11/16/2018 Source Source: Chart review, Patient History of Present Illness History of Present Illness Patient is a 68 year old female with multiple comorbidities including diabetes, hypertension and recently diagnosed with nephrolithiasis for the first time in her life. Patient was diagnosed with Kiko 3 cm staghorn calculi and was seen in consultation by urology at [place], patient underwent lithotripsy on Monday (3 d ago) by Dr. Cazares at [facility]. She states it was an outpt procedure and she went home and has been feeling more and more discomfort in her R flank and low abd and today was having chills. She is currently on Clindamycin. She has had why she was very concerned due to her symptoms today. By the time she had her third bout of "feeling cold" she knew was time to seek medical attention and came to the emergency department for evaluation and treatment. She was found to be in early sepsis secondary to a urinary tract infection reason why she is being admitted to the intensive care unit for further evaluation and treatment Her urine was collected by straight ca th while I was in the room and appears to look like thick purulent urine. Pt is normotensive on arrival with mild tachycardia in the 90's and appears ill. She is awake and alert. And oriented during my evaluation. No headache no blurred vision no dysphagia no neurological deficits no chest pain palpitations has been reported no CVA tenderness mild abdominal discomfort but no guarding nor rebound tenderness was elicited on exam. Plan of care has been explained detail concerns were addressed to the best of my abilities Past Medical History Cardiovascular: HTN, Hyperlipidemia, Other Pulmonary: Other CENTRAL NERVOUS SYSTEM: CVA GI: GERD Heme/Onc: Cancer Hepatobiliary: No pertinent hx Psych: Anxiety, Depression Rheumatologic: No pertinent hx Infectious disease: No pertinent hx Renal/: No pertinent hx Endocrine: Diabetes, Hypothyroidism Past Surgical History Past Surgical History: Arthroscopy, Cholecystectomy, Hysterectomy Family History Family History: Heart Disease, Hypertension Social History ALCOHOL: none Drugs: None Current Problem List Problem List Problems Medical Problems: (1) Sepsis Status: Acute (2) Urinary tract infection Status: Acute Current Medications Current Medications Current Medications Medications (Trade) Dose Ordered Sig/Nader Start Time Stop Time Status Last Admin Dose Admin Acetaminophen (Tylenol) 650 mg PRN Q6HRS PRN 11/16/18 18:00 Amlodipine Besylate (Norvasc) 10 mg DAILY 11/17/18 09:00 Aspirin (Robert Aspirin) 325 mg DAILY 11/17/18 09:00 Atorvastatin Calcium (Lipitor) 80 mg QHS 11/16/18 21:00 11/16/18 21:22 80 MG Carvedilol (Coreg) 12.5 mg BIDWMEALS 11/16/18 18:30 Ceftriaxone Sodium (Rocephin) 1 gm 1X ONCE 11/16/18 18:00 11/16/18 18:01 DC 11/16/18 17:30 1 GM Chlorthalidone (Thalitone) 25 mg DAILY 11/17/18 09:00 Citalopram Hydrobromide (CeleXA) 40 mg DAILY 11/17/18 09:00 Clonidine HCl (Catapres) 0.1 mg PRN Q8HRS PRN 11/16/18 18:00 Dextrose (Dextrose 50%-Water Syringe) 12.5 gm PRN Q15MIN PRN 11/16/18 18:00 Diphenhydramine HCl (Benadryl) 12.5 mg 1X ONCE 11/16/18 18:00 11/16/18 18:01 DC 11/16/18 17:30 12.5 MG Heparin Sodium (Porcine) (Heparin Sodium) 5,000 unit Q12HR 11/16/18 19:00 11/16/18 21:28 5,000 UNIT Hydrochlorothiazide (Microzide) 12.5 mg DAILY 11/17/18 09:00 Info (Icu Electrolyte Protocol) 1 ea DAILY 11/17/18 09:00 Insulin Glargine (Lantus) 64 units QHS 11/16/18 21:00 11/16/18 21:47 64 UNITS Insulin Human Lispro (HumaLOG) 24 units TIDWMEALS 11/17/18 08:00 Insulin Human Regular (HumuLIN R VIAL) 6 unit 1X ONCE 11/16/18 17:45 11/16/18 17:47 DC 11/16/18 17:58 6 UNIT Lactobacillus Rhamnosus (Culturelle) 1 cap BID 11/16/18 21:00 11/16/18 21:22 1 CAP Lactulose (Lactulose) 20 gm PRN Q12HR PRN 11/16/18 18:00 Levothyroxine Sodium (Synthroid) 250 mcg DAILY06 11/17/18 06:00 Lidocaine (Lidoderm) 1 patch DAILY 11/17/18 09:00 Lorazepam (Ativan Inj) 0.5 mg PRN Q6HRS PRN 11/16/18 18:00 Losartan Potassium (Cozaar) 100 mg DAILY 11/17/18 09:00 Magnesium Sulfate 50 ml @ 25 mls/hr 1X ONCE 11/16/18 18:15 11/16/18 20:14 DC 11/16/18 20:48 25 MLS/HR Non-Formulary Medication (Semaglutide (Ozempic)) 0.5 mg QFR 11/23/18 16:00 Ondansetron HCl (Zofran) 4 mg PRN Q6HRS PRN 11/16/18 18:00 Oxycodone/ Acetaminophen (Percocet 5/325) 1 tab PRN Q4HRS PRN 11/16/18 18:00 11/16/18 22:38 1 TAB Pantoprazole Sodium (Protonix) 40 mg DAILYAC 11/17/18 07:30 Potassium Chloride (Klor-Con) 20 meq DAILYWBKFT 11/17/18 08:00 Sodium Chloride 1,000 ml @ 1,000 mls/hr 1X ONCE 11/16/18 20:45 11/16/18 21:44 DC 11/16/18 20:46 1,000 MLS/HR Sodium Chloride (Normal Saline Flush) 3 ml QSHIFT PRN 11/16/18 18:00 Trazodone HCl (Desyrel) 50 mg QHS 11/16/18 21:00 11/16/18 21:29 50 MG Vancomycin HCl 2 gm/Sodium Chloride 500 ml @ 250 mls/hr 1X ONCE 11/16/18 19:00 11/16/18 20:59 DC 11/16/18 18:32 250 MLS/HR Zolpidem Tartrate (Ambien) 5 mg PRN QHS PRN 11/16/18 18:00 Allergies Allergies Allergies Coded Allergies Type Severity Reaction Last Updated Verified ceftriaxone Allergy Intermediate rash 11/16/18 Yes cephalexin Allergy Intermediate RASH 11/16/18 Yes levofloxacin Allergy Intermediate RASH 11/16/18 Yes morphine Allergy Intermediate tolerates Dilaudid & Percocet 09/11/16 Yes ciprofloxacin Adverse Reaction Intermediate TENDONITIS 11/16/18 Yes lovastatin Adverse Reaction Intermediate CAUSES MUSCLE SPASMS 09/11/16 Yes ROS Review of System CONSTITUTIONAL: Fever and chills EYES: No recent changes SKIN: No rash or itching CARDIOVASCULAR: No chest pain, syncope, palpitations, or edema RESPIRATORY: No SOB or cough GASTROINTESTINAL: No nausea, vomiting or abdominal pain NEUROLOGICAL: No headaches or weakness ENDOCRINE: No cold or heat intolerance GENITOURINARY: No urgency or frequency of urination MUSCULOSKELETAL: No back pain or joint pain LYMPHATICS: No enlarged lymph nodes PSYCHIATRIC: No anxiety or depression Physical Exam Physical Exam GEN.: In mild distress, very diaphoretic and disheveled looking. HEENT: Head is normocephalic, atraumatic NECK: Supple. LUNGS: Clear to auscultation. HEART: RRR, S1, S2 present. Peripheral pulses intact ABDOMEN: Soft, nontender. Positive bowel sounds. EXTREMITIES: Without any cyanosis. NEUROLOGIC: Normal speech, normal tone PSYCHIATRIC: Normal affect, normal mood. SKIN: No ulcerations Vitals Vitals Vital Signs Date Time Temp Pulse Resp B/P (MAP) Pulse Ox O2 Delivery O2 Flow Rate FiO2 11/16/18 22:38 94 2.0 11/16/18 21:00 78 22 96/48 (64) Nasal Cannula 11/16/18 19:00 98.2 98.2 Labs Labs Laboratory Tests Test 11/16/18 16:45 11/16/18 16:57 11/16/18 21:45 Urine Color Red Urine Clarity Turbid Urine pH 5.5 Urine Specific Ransom 1.020 Urine Protein >=300 mg/dL (NEG-TRACE) Urine Glucose (UA) 100 mg/dL (NEG) Urine Ketones (Stick) Trace mg/dL (NEG) Urine Blood Large (NEG) Urine Nitrite Negative (NEG) Urine Bilirubin Small (NEG) Urine Urobilinogen Dipstick 1.0 mg/dL (0.2 mg/dL) Urine Leukocyte Esterase Large (NEG) Urine RBC 11-20 /HPF (0-2) Urine WBC Tntc /HPF (0-4) Urine Squamous Epithelial Cells Occ /LPF Urine Bacteria Moderate /HPF (0-FEW) White Blood Count 16.0 x10^3/uL (4.0-11.0) Red Blood Count 3.98 x10^6/uL (3.50-5.40) Hemoglobin 11.4 g/dL (12.0-15.5) Hematocrit 34.8 % (36.0-47.0) Mean Corpuscular Volume 87 fL (79-100) Mean Corpuscular Hemoglobin 29 pg (25-35) Mean Corpuscular Hemoglobin Concent 33 g/dL (31-37) Red Cell Distribution Width 14.0 % (11.5-14.5) Platelet Count 95 x10^3/uL (140-400) Neutrophils (%) (Auto) 88 % (31-73) Lymphocytes (%) (Auto) 4 % (24-48) Monocytes (%) (Auto) 8 % (0-9) Eosinophils (%) (Auto) 0 % (0-3) Basophils (%) (Auto) 0 % (0-3) Neutrophils # (Auto) 14.1 x10^3uL (1.8-7.7) Lymphocytes # (Auto) 0.6 x10^3/uL (1.0-4.8) Monocytes # (Auto) 1.3 x10^3/uL (0.0-1.1) Eosinophils # (Auto) 0.0 x10^3/uL (0.0-0.7) Basophils # (Auto) 0.0 x10^3/uL (0.0-0.2) Segmented Neutrophils % 88 % (35-66) Lymphocytes % 3 % (24-48) Monocytes % 9 % (0-10) Platelet Estimate Decreased (ADEQUATE) Polychromasia Slight Anisocytosis Slight Prothrombin Time 14.7 SEC (11.7-14.0) Prothromb Time International Ratio 1.2 (0.8-1.1) Activated Partial Thromboplast Time 34 SEC (24-38) Sodium Level 128 mmol/L (136-145) Potassium Level 3.4 mmol/L (3.5-5.1) Chloride Level 90 mmol/L (98-107) Carbon Dioxide Level 23 mmol/L (21-32) Anion Gap 15 (6-14) Blood Urea Nitrogen 25 mg/dL (7-20) Creatinine 2.0 mg/dL (0.6-1.0) Estimated GFR (Cockcroft-Gault) 24.8 BUN/Creatinine Ratio 13 (6-20) Glucose Level 324 mg/dL (70-99) Lactic Acid Level 3.9 mmol/L (0.4-2.0) 2.1 mmol/L (0.4-2.0) Calcium Level 9.7 mg/dL (8.5-10.1) Magnesium Level 1.4 mg/dL (1.8-2.4) Total Bilirubin 0.8 mg/dL (0.2-1.0) Aspartate Amino Transf (AST/SGOT) 26 U/L (15-37) Alanine Aminotransferase (ALT/SGPT) 37 U/L (14-59) Alkaline Phosphatase 91 U/L (46-116) Total Protein 7.3 g/dL (6.4-8.2) Albumin 2.8 g/dL (3.4-5.0) Albumin/Globulin Ratio 0.6 (1.0-1.7) Laboratory Tests Test 11/16/18 16:45 11/16/18 16:57 11/16/18 21:45 Urine Color Red Urine Clarity Turbid Urine pH 5.5 Urine Specific Ransom 1.020 Urine Protein >=300 mg/dL (NEG-TRACE) Urine Glucose (UA) 100 mg/dL (NEG) Urine Ketones (Stick) Trace mg/dL (NEG) Urine Blood Large (NEG) Urine Nitrite Negative (NEG) Urine Bilirubin Small (NEG) Urine Urobilinogen Dipstick 1.0 mg/dL (0.2 mg/dL) Urine Leukocyte Esterase Large (NEG) Urine RBC 11-20 /HPF (0-2) Urine WBC Tntc /HPF (0-4) Urine Squamous Epithelial Cells Occ /LPF Urine Bacteria Moderate /HPF (0-FEW) White Blood Count 16.0 x10^3/uL (4.0-11.0) Red Blood Count 3.98 x10^6/uL (3.50-5.40) Hemoglobin 11.4 g/dL (12.0-15.5) Hematocrit 34.8 % (36.0-47.0) Mean Corpuscular Volume 87 fL (79-100) Mean Corpuscular Hemoglobin 29 pg (25-35) Mean Corpuscular Hemoglobin Concent 33 g/dL (31-37) Red Cell Distribution Width 14.0 % (11.5-14.5) Platelet Count 95 x10^3/uL (140-400) Neutrophils (%) (Auto) 88 % (31-73) Lymphocytes (%) (Auto) 4 % (24-48) Monocytes (%) (Auto) 8 % (0-9) Eosinophils (%) (Auto) 0 % (0-3) Basophils (%) (Auto) 0 % (0-3) Neutrophils # (Auto) 14.1 x10^3uL (1.8-7.7) Lymphocytes # (Auto) 0.6 x10^3/uL (1.0-4.8) Monocytes # (Auto) 1.3 x10^3/uL (0.0-1.1) Eosinophils # (Auto) 0.0 x10^3/uL (0.0-0.7) Basophils # (Auto) 0.0 x10^3/uL (0.0-0.2) Segmented Neutrophils % 88 % (35-66) Lymphocytes % 3 % (24-48) Monocytes % 9 % (0-10) Platelet Estimate Decreased (ADEQUATE) Polychromasia Slight Anisocytosis Slight Prothrombin Time 14.7 SEC (11.7-14.0) Prothromb Time International Ratio 1.2 (0.8-1.1) Activated Partial Thromboplast Time 34 SEC (24-38) Sodium Level 128 mmol/L (136-145) Potassium Level 3.4 mmol/L (3.5-5.1) Chloride Level 90 mmol/L (98-107) Carbon Dioxide Level 23 mmol/L (21-32) Anion Gap 15 (6-14) Blood Urea Nitrogen 25 mg/dL (7-20) Creatinine 2.0 mg/dL (0.6-1.0) Estimated GFR (Cockcroft-Gault) 24.8 BUN/Creatinine Ratio 13 (6-20) Glucose Level 324 mg/dL (70-99) Lactic Acid Level 3.9 mmol/L (0.4-2.0) 2.1 mmol/L (0.4-2.0) Calcium Level 9.7 mg/dL (8.5-10.1) Magnesium Level 1.4 mg/dL (1.8-2.4) Total Bilirubin 0.8 mg/dL (0.2-1.0) Aspartate Amino Transf (AST/SGOT) 26 U/L (15-37) Alanine Aminotransferase (ALT/SGPT) 37 U/L (14-59) Alkaline Phosphatase 91 U/L (46-116) Total Protein 7.3 g/dL (6.4-8.2) Albumin 2.8 g/dL (3.4-5.0) Albumin/Globulin Ratio 0.6 (1.0-1.7) VTE Prophylaxis Ordered VTE Prophylaxis Devices: Yes VTE Pharmacological Prophylaxi: Yes Assessment/Plan Assessment/Plan Sepsis secondary to UTI Lactic acidosis as a consequence of the above thrmobocytopenia most likely due ot sepsis Acute renal failure secondary to sepsis and prerenal azotemia Severe dehydration Hyponatremia secondary to low effective circulatory volume Hypokalemia history of essential hypertension DM type 2 morbid obesity with BMI of 47 Plan: Admit to the intensive care unit Broad-spectrum antibiotics with Rocephin and vancomycin We'll repeat labs in the a.m. Follow lactic acid repeat Fluid resuscitation as per protocol has been initiated 2 L boluses and will care maintenance fluids Resume home medications once available for review Follow urinary output Further recommendations based on the clinical course DVT prophylaxis with SCD and tedJUDY Fernando MD November 16, 2018 22:52
--- NOTE | 2018-11-16 23:43 | RAD ---
AP portable chest radiograph 11/16/2018 Clinical History: Chills and cough. Hypoxia. An AP erect portable digital radiograph of the chest was obtained. Comparison study is dated 09/25/2018. The cardiac silhouette is mildly enlarged. The thoracic aorta is tortuous. Atherosclerotic calcification of the thoracic aorta is seen. No acute pulmonary infiltrate is noted. No pneumothorax or pleural effusion is seen. Degenerative changes are seen involving the thoracic spine and both shoulders. Impression: No acute abnormality is seen. Electronically signed by: Selvin Henriquez MD (11/16/2018 11:40 PM) [facility]
[2018-11-17] VITALS (22 sets, daily range): BP systolic 102–134; BP diastolic 47–68
--- NOTE | 2018-11-17 03:51 | NUR ---
Pt using home cpap tonight. Occasionally desats into the lower 80's%. Called RT to place supplemental O2 on machine. Pt states that she has not had a sleep study in 20 years and uses the same machine. Instructed her to ask her doctor about getting another sleep study done.
[2018-11-17 04:46] LABS: BASO % 0 % (0-3); EOS % 1 % (0-3); HEMATOCRIT 30.3 % (36.0-47.0); LYMPH # 0.5 x10^3/uL (1.0-4.8); LYMPH % 6 % (24-48); MEAN CORPUSCULAR HEMOGLOBIN 29 pg (25-35); MEAN CORPUSCULAR HGB CONC 33 g/dL (31-37); MEAN CORPUSCULAR VOLUME 88 fL (79-100); MONO # 0.7 x10^3/uL (0.0-1.1); MONO % 7 % (0-9); NEUT # 7.9 x10^3uL (1.8-7.7); NEUT % 87 % (31-73); PLATELET COUNT 76 x10^3/uL (140-400); RED BLOOD COUNT 3.46 x10^6/uL (3.50-5.40); RED CELL DISTRIBUTION WIDTH 13.8 % (11.5-14.5); WHITE BLOOD COUNT 9.1 x10^3/uL (4.0-11.0)
[2018-11-17 04:58] LABS: CALCIUM 8.7 mg/dL (8.5-10.1); CREATININE 1.4 mg/dL (0.6-1.0); GFR 37.4; POTASSIUM 3.5 mmol/L (3.5-5.1)
[2018-11-17] MEDS: LEVOTHYROXINE 125 MCG TABLET PO SCH (06:25)
[2018-11-17] MEDS ORDERED: INSULIN LISPRO 300 UNITS/3 ML INSULN.PEN. SQ SCH ×2 (08:00)
[2018-11-17] MEDS: POTASSIUM CHLORIDE 20 MEQ TABLET.ER. PO SCH (08:09)
[2018-11-17] MEDS: PANTOPRAZOLE 40 MG TABLET.DR. PO SCH (08:09)
[2018-11-17] MEDS: IV NORMAL SALINE 1000ML BAG 1,000 ML IV SCH ×3 (08:10→21:03)
[2018-11-17] MEDS: CARVEDILOL 12.5 MG TABLET. PO SCH ×2 (08:10→17:00)
[2018-11-17] MEDS: INSULIN LISPRO 300 UNITS/3 ML INSULN.PEN. SQ SCH ×6 (08:11→17:51)
[2018-11-17] MEDS: amLODIPine BESYLATE 10 MG TABLET PO SCH (09:00)
[2018-11-17] MEDS: ELECTROLYTE (ICU) PROTOCOL. MC SCH (09:00)
[2018-11-17] MEDS: hydroCHLOROthiazide 12.5 MG CAPSULE PO SCH (09:00)
--- NOTE | 2018-11-17 09:48 | PDOC ---
PROGRESS NOTES History of Present Illness History of Present Illness VTE Prophylaxis Ordered VTE Prophylaxis Devices: Yes VTE Pharmacological Prophylaxi: Yes Assessment/Plan GNR bacteremia with sepsis, POA Sepsis secondary to UTI Lactic acidosis as a consequence of the above thrmobocytopenia most likely due ot sepsis Acute renal failure secondary to sepsis and prerenal azotemia Severe dehydration Hyponatremia secondary to low effective circulatory volume Hypokalemia history of essential hypertension DM type 2 morbid obesity with BMI of 47 Plan: Admit to the intensive care unit Broad-spectrum antibiotics with Rocephin and vancomycin We'll repeat labs in the a.m. Follow lactic acid repeat Fluid resuscitation as per protocol has been initiated 2 L boluses and will care maintenance fluids Resume home medications once available for review Follow urinary output Further recommendations based on the clinical course DVT prophylaxis with SCD and teds 37 min cc time Vitals Vitals Vital Signs Date Time Temp Pulse Resp B/P (MAP) Pulse Ox O2 Delivery O2 Flow Rate FiO2 11/17/18 08:10 69 122/63 11/17/18 08:00 98.9 15 93 Room Air 98.9 11/17/18 08:00 2.0 Physical Exam Physical Exam HEENT: Head is normocephalic, atraumatic NECK: Supple. LUNGS: Clear to auscultation. HEART: RRR, S1, S2 present. Peripheral pulses intact ABDOMEN: Soft, nontender. Positive bowel sounds. EXTREMITIES: Without any cyanosis. NEUROLOGIC: Normal speech, normal tone PSYCHIATRIC: Normal affect, normal mood. SKIN: No ulcerations General: Alert, Oriented X3, Cooperative, mild distress Heart: Regular rate, No murmurs Lungs: Clear Abdomen: Normal bowel sounds, Soft Extremities: No clubbing, No cyanosis Labs LABS AGE/SX: 68/F ROOM: 109 RE11/16/[address]: JUDY AVILA MD : 1950 BED: 1 DIS: STATUS: ADM IN TLOC: SPEC #: [id number] FRANCY: 11/16/18 STATUS: COMP REQ #: [id number] RECD: 11/16/18 [facility] DR: LUDY CARR DO SOURCE: BLOOD ENTR: 11/16/18-1813 [facility] DR: GABRIELA,STAFF [facility]: MEI MOCK MD ORDERED: BCULT Procedure Result -- BLOOD CULTURE Final GRAM NEGATIVE RODS SEEN IN 1 OF 4 BOTTLES; 2 SETS WERE DRAWN; RESULTS WERE CALLED TO DEISY BILLINGS IN ICU; 11/17/18; 0900 BY DARRON. THE BLOOD CULTURES HAVE BEEN SENT TO [facility] FOR FURTHER WORKUP. Laboratory Tests Test 11/16/18 16:45 11/16/18 16:57 11/16/18 21:43 11/16/18 21:45 Urine Color Red Urine Clarity Turbid Urine pH 5.5 Urine Specific [place] 1.020 Urine Protein >=300 mg/dL (NEG-TRACE) Urine Glucose (UA) 100 mg/dL (NEG) Urine Ketones (Stick) Trace mg/dL (NEG) Urine Blood Large (NEG) Urine Nitrite Negative (NEG) Urine Bilirubin Small (NEG) Urine Urobilinogen Dipstick 1.0 mg/dL (0.2 mg/dL) Urine Leukocyte Esterase Large (NEG) Urine RBC 11-20 /HPF (0-2) Urine WBC Tntc /HPF (0-4) Urine Squamous Epithelial Cells Occ /LPF Urine Bacteria Moderate /HPF (0-FEW) White Blood Count 16.0 x10^3/uL (4.0-11.0) Red Blood Count 3.98 x10^6/uL (3.50-5.40) Hemoglobin 11.4 g/dL (12.0-15.5) Hematocrit 34.8 % (36.0-47.0) Mean Corpuscular Volume 87 fL (79-100) Mean Corpuscular Hemoglobin 29 pg (25-35) Mean Corpuscular Hemoglobin Concent 33 g/dL (31-37) Red Cell Distribution Width 14.0 % (11.5-14.5) Platelet Count 95 x10^3/uL (140-400) Neutrophils (%) (Auto) 88 % (31-73) Lymphocytes (%) (Auto) 4 % (24-48) Monocytes (%) (Auto) 8 % (0-9) Eosinophils (%) (Auto) 0 % (0-3) Basophils (%) (Auto) 0 % (0-3) Neutrophils # (Auto) 14.1 x10^3uL (1.8-7.7) Lymphocytes # (Auto) 0.6 x10^3/uL (1.0-4.8) Monocytes # (Auto) 1.3 x10^3/uL (0.0-1.1) Eosinophils # (Auto) 0.0 x10^3/uL (0.0-0.7) Basophils # (Auto) 0.0 x10^3/uL (0.0-0.2) Segmented Neutrophils % 88 % (35-66) Lymphocytes % 3 % (24-48) Monocytes % 9 % (0-10) Platelet Estimate Decreased (ADEQUATE) Polychromasia Slight Anisocytosis Slight Prothrombin Time 14.7 SEC (11.7-14.0) Prothromb Time International Ratio 1.2 (0.8-1.1) Activated Partial Thromboplast Time 34 SEC (24-38) Sodium Level 128 mmol/L (136-145) Potassium Level 3.4 mmol/L (3.5-5.1) Chloride Level 90 mmol/L (98-107) Carbon Dioxide Level 23 mmol/L (21-32) Anion Gap 15 (6-14) Blood Urea Nitrogen 25 mg/dL (7-20) Creatinine 2.0 mg/dL (0.6-1.0) Estimated GFR (Cockcroft-Gault) 24.8 BUN/Creatinine Ratio 13 (6-20) Glucose Level 324 mg/dL (70-99) Lactic Acid Level 3.9 mmol/L (0.4-2.0) 2.1 mmol/L (0.4-2.0) Calcium Level 9.7 mg/dL (8.5-10.1) Magnesium Level 1.4 mg/dL (1.8-2.4) Total Bilirubin 0.8 mg/dL (0.2-1.0) Aspartate Amino Transf (AST/SGOT) 26 U/L (15-37) Alanine Aminotransferase (ALT/SGPT) 37 U/L (14-59) Alkaline Phosphatase 91 U/L (46-116) Total Protein 7.3 g/dL (6.4-8.2) Albumin 2.8 g/dL (3.4-5.0) Albumin/Globulin Ratio 0.6 (1.0-1.7) Glucose (Fingerstick) 307 mg/dL (70-99) Test 11/17/18 04:30 11/17/18 08:08 White Blood Count 9.1 x10^3/uL (4.0-11.0) Red Blood Count 3.46 x10^6/uL (3.50-5.40) Hemoglobin 10.0 g/dL (12.0-15.5) Hematocrit 30.3 % (36.0-47.0) Mean Corpuscular Volume 88 fL (79-100) Mean Corpuscular Hemoglobin 29 pg (25-35) Mean Corpuscular Hemoglobin Concent 33 g/dL (31-37) Red Cell Distribution Width 13.8 % (11.5-14.5) Platelet Count 76 x10^3/uL (140-400) Neutrophils (%) (Auto) 87 % (31-73) Lymphocytes (%) (Auto) 6 % (24-48) Monocytes (%) (Auto) 7 % (0-9) Eosinophils (%) (Auto) 1 % (0-3) Basophils (%) (Auto) 0 % (0-3) Neutrophils # (Auto) 7.9 x10^3uL (1.8-7.7) Lymphocytes # (Auto) 0.5 x10^3/uL (1.0-4.8) Monocytes # (Auto) 0.7 x10^3/uL (0.0-1.1) Eosinophils # (Auto) 0.0 x10^3/uL (0.0-0.7) Basophils # (Auto) 0.0 x10^3/uL (0.0-0.2) Sodium Level 136 mmol/L (136-145) Potassium Level 3.5 mmol/L (3.5-5.1) Chloride Level 100 mmol/L (98-107) Carbon Dioxide Level 27 mmol/L (21-32) Anion Gap 9 (6-14) Blood Urea Nitrogen 23 mg/dL (7-20) Creatinine 1.4 mg/dL (0.6-1.0) Estimated GFR (Cockcroft-Gault) 37.4 Glucose Level 238 mg/dL (70-99) Calcium Level 8.7 mg/dL (8.5-10.1) Glucose (Fingerstick) 173 mg/dL (70-99) Assessment and Plan Assessmemt and Plan Problems Medical Problems: (1) Sepsis Status: Acute (2) Urinary tract infection Status: Acute Comment Review of Relevant I have reviewed the following items jeffrey (where applicable) has been applied. Labs Laboratory Tests Test 11/16/18 16:45 11/16/18 16:57 11/16/18 21:43 11/16/18 21:45 Urine Color Red Urine Clarity Turbid Urine pH 5.5 Urine Specific [place] 1.020 Urine Protein >=300 mg/dL (NEG-TRACE) Urine Glucose (UA) 100 mg/dL (NEG) Urine Ketones (Stick) Trace mg/dL (NEG) Urine Blood Large (NEG) Urine Nitrite Negative (NEG) Urine Bilirubin Small (NEG) Urine Urobilinogen Dipstick 1.0 mg/dL (0.2 mg/dL) Urine Leukocyte Esterase Large (NEG) Urine RBC 11-20 /HPF (0-2) Urine WBC Tntc /HPF (0-4) Urine Squamous Epithelial Cells Occ /LPF Urine Bacteria Moderate /HPF (0-FEW) White Blood Count 16.0 x10^3/uL (4.0-11.0) Red Blood Count 3.98 x10^6/uL (3.50-5.40) Hemoglobin 11.4 g/dL (12.0-15.5) Hematocrit 34.8 % (36.0-47.0) Mean Corpuscular Volume 87 fL (79-100) Mean Corpuscular Hemoglobin 29 pg (25-35) Mean Corpuscular Hemoglobin Concent 33 g/dL (31-37) Red Cell Distribution Width 14.0 % (11.5-14.5) Platelet Count 95 x10^3/uL (140-400) Neutrophils (%) (Auto) 88 % (31-73) Lymphocytes (%) (Auto) 4 % (24-48) Monocytes (%) (Auto) 8 % (0-9) Eosinophils (%) (Auto) 0 % (0-3) Basophils (%) (Auto) 0 % (0-3) Neutrophils # (Auto) 14.1 x10^3uL (1.8-7.7) Lymphocytes # (Auto) 0.6 x10^3/uL (1.0-4.8) Monocytes # (Auto) 1.3 x10^3/uL (0.0-1.1) Eosinophils # (Auto) 0.0 x10^3/uL (0.0-0.7) Basophils # (Auto) 0.0 x10^3/uL (0.0-0.2) Segmented Neutrophils % 88 % (35-66) Lymphocytes % 3 % (24-48) Monocytes % 9 % (0-10) Platelet Estimate Decreased (ADEQUATE) Polychromasia Slight Anisocytosis Slight Prothrombin Time 14.7 SEC (11.7-14.0) Prothromb Time International Ratio 1.2 (0.8-1.1) Activated Partial Thromboplast Time 34 SEC (24-38) Sodium Level 128 mmol/L (136-145) Potassium Level 3.4 mmol/L (3.5-5.1) Chloride Level 90 mmol/L (98-107) Carbon Dioxide Level 23 mmol/L (21-32) Anion Gap 15 (6-14) Blood Urea Nitrogen 25 mg/dL (7-20) Creatinine 2.0 mg/dL (0.6-1.0) Estimated GFR (Cockcroft-Gault) 24.8 BUN/Creatinine Ratio 13 (6-20) Glucose Level 324 mg/dL (70-99) Lactic Acid Level 3.9 mmol/L (0.4-2.0) 2.1 mmol/L (0.4-2.0) Calcium Level 9.7 mg/dL (8.5-10.1) Magnesium Level 1.4 mg/dL (1.8-2.4) Total Bilirubin 0.8 mg/dL (0.2-1.0) Aspartate Amino Transf (AST/SGOT) 26 U/L (15-37) Alanine Aminotransferase (ALT/SGPT) 37 U/L (14-59) Alkaline Phosphatase 91 U/L (46-116) Total Protein 7.3 g/dL (6.4-8.2) Albumin 2.8 g/dL (3.4-5.0) Albumin/Globulin Ratio 0.6 (1.0-1.7) Glucose (Fingerstick) 307 mg/dL (70-99) Test 11/17/18 04:30 11/17/18 08:08 White Blood Count 9.1 x10^3/uL (4.0-11.0) Red Blood Count 3.46 x10^6/uL (3.50-5.40) Hemoglobin 10.0 g/dL (12.0-15.5) Hematocrit 30.3 % (36.0-47.0) Mean Corpuscular Volume 88 fL (79-100) Mean Corpuscular Hemoglobin 29 pg (25-35) Mean Corpuscular Hemoglobin Concent 33 g/dL (31-37) Red Cell Distribution Width 13.8 % (11.5-14.5) Platelet Count 76 x10^3/uL (140-400) Neutrophils (%) (Auto) 87 % (31-73) Lymphocytes (%) (Auto) 6 % (24-48) Monocytes (%) (Auto) 7 % (0-9) Eosinophils (%) (Auto) 1 % (0-3) Basophils (%) (Auto) 0 % (0-3) Neutrophils # (Auto) 7.9 x10^3uL (1.8-7.7) Lymphocytes # (Auto) 0.5 x10^3/uL (1.0-4.8) Monocytes # (Auto) 0.7 x10^3/uL (0.0-1.1) Eosinophils # (Auto) 0.0 x10^3/uL (0.0-0.7) Basophils # (Auto) 0.0 x10^3/uL (0.0-0.2) Sodium Level 136 mmol/L (136-145) Potassium Level 3.5 mmol/L (3.5-5.1) Chloride Level 100 mmol/L (98-107) Carbon Dioxide Level 27 mmol/L (21-32) Anion Gap 9 (6-14) Blood Urea Nitrogen 23 mg/dL (7-20) Creatinine 1.4 mg/dL (0.6-1.0) Estimated GFR (Cockcroft-Gault) 37.4 Glucose Level 238 mg/dL (70-99) Calcium Level 8.7 mg/dL (8.5-10.1) Glucose (Fingerstick) 173 mg/dL (70-99) Laboratory Tests Test 11/16/18 16:45 11/16/18 16:57 11/16/18 21:43 11/16/18 21:45 Urine Color Red Urine Clarity Turbid Urine pH 5.5 Urine Specific [place] 1.020 Urine Protein >=300 mg/dL (NEG-TRACE) Urine Glucose (UA) 100 mg/dL (NEG) Urine Ketones (Stick) Trace mg/dL (NEG) Urine Blood Large (NEG) Urine Nitrite Negative (NEG) Urine Bilirubin Small (NEG) Urine Urobilinogen Dipstick 1.0 mg/dL (0.2 mg/dL) Urine Leukocyte Esterase Large (NEG) Urine RBC 11-20 /HPF (0-2) Urine WBC Tntc /HPF (0-4) Urine Squamous Epithelial Cells Occ /LPF Urine Bacteria Moderate /HPF (0-FEW) White Blood Count 16.0 x10^3/uL (4.0-11.0) Red Blood Count 3.98 x10^6/uL (3.50-5.40) Hemoglobin 11.4 g/dL (12.0-15.5) Hematocrit 34.8 % (36.0-47.0) Mean Corpuscular Volume 87 fL (79-100) Mean Corpuscular Hemoglobin 29 pg (25-35) Mean Corpuscular Hemoglobin Concent 33 g/dL (31-37) Red Cell Distribution Width 14.0 % (11.5-14.5) Platelet Count 95 x10^3/uL (140-400) Neutrophils (%) (Auto) 88 % (31-73) Lymphocytes (%) (Auto) 4 % (24-48) Monocytes (%) (Auto) 8 % (0-9) Eosinophils (%) (Auto) 0 % (0-3) Basophils (%) (Auto) 0 % (0-3) Neutrophils # (Auto) 14.1 x10^3uL (1.8-7.7) Lymphocytes # (Auto) 0.6 x10^3/uL (1.0-4.8) Monocytes # (Auto) 1.3 x10^3/uL (0.0-1.1) Eosinophils # (Auto) 0.0 x10^3/uL (0.0-0.7) Basophils # (Auto) 0.0 x10^3/uL (0.0-0.2) Segmented Neutrophils % 88 % (35-66) Lymphocytes % 3 % (24-48) Monocytes % 9 % (0-10) Platelet Estimate Decreased (ADEQUATE) Polychromasia Slight Anisocytosis Slight Prothrombin Time 14.7 SEC (11.7-14.0) Prothromb Time International Ratio 1.2 (0.8-1.1) Activated Partial Thromboplast Time 34 SEC (24-38) Sodium Level 128 mmol/L (136-145) Potassium Level 3.4 mmol/L (3.5-5.1) Chloride Level 90 mmol/L (98-107) Carbon Dioxide Level 23 mmol/L (21-32) Anion Gap 15 (6-14) Blood Urea Nitrogen 25 mg/dL (7-20) Creatinine 2.0 mg/dL (0.6-1.0) Estimated GFR (Cockcroft-Gault) 24.8 BUN/Creatinine Ratio 13 (6-20) Glucose Level 324 mg/dL (70-99) Lactic Acid Level 3.9 mmol/L (0.4-2.0) 2.1 mmol/L (0.4-2.0) Calcium Level 9.7 mg/dL (8.5-10.1) Magnesium Level 1.4 mg/dL (1.8-2.4) Total Bilirubin 0.8 mg/dL (0.2-1.0) Aspartate Amino Transf (AST/SGOT) 26 U/L (15-37) Alanine Aminotransferase (ALT/SGPT) 37 U/L (14-59) Alkaline Phosphatase 91 U/L (46-116) Total Protein 7.3 g/dL (6.4-8.2) Albumin 2.8 g/dL (3.4-5.0) Albumin/Globulin Ratio 0.6 (1.0-1.7) Glucose (Fingerstick) 307 mg/dL (70-99) Test 11/17/18 04:30 11/17/18 08:08 White Blood Count 9.1 x10^3/uL (4.0-11.0) Red Blood Count 3.46 x10^6/uL (3.50-5.40) Hemoglobin 10.0 g/dL (12.0-15.5) Hematocrit 30.3 % (36.0-47.0) Mean Corpuscular Volume 88 fL (79-100) Mean Corpuscular Hemoglobin 29 pg (25-35) Mean Corpuscular Hemoglobin Concent 33 g/dL (31-37) Red Cell Distribution Width 13.8 % (11.5-14.5) Platelet Count 76 x10^3/uL (140-400) Neutrophils (%) (Auto) 87 % (31-73) Lymphocytes (%) (Auto) 6 % (24-48) Monocytes (%) (Auto) 7 % (0-9) Eosinophils (%) (Auto) 1 % (0-3) Basophils (%) (Auto) 0 % (0-3) Neutrophils # (Auto) 7.9 x10^3uL (1.8-7.7) Lymphocytes # (Auto) 0.5 x10^3/uL (1.0-4.8) Monocytes # (Auto) 0.7 x10^3/uL (0.0-1.1) Eosinophils # (Auto) 0.0 x10^3/uL (0.0-0.7) Basophils # (Auto) 0.0 x10^3/uL (0.0-0.2) Sodium Level 136 mmol/L (136-145) Potassium Level 3.5 mmol/L (3.5-5.1) Chloride Level 100 mmol/L (98-107) Carbon Dioxide Level 27 mmol/L (21-32) Anion Gap 9 (6-14) Blood Urea Nitrogen 23 mg/dL (7-20) Creatinine 1.4 mg/dL (0.6-1.0) Estimated GFR (Cockcroft-Gault) 37.4 Glucose Level 238 mg/dL (70-99) Calcium Level 8.7 mg/dL (8.5-10.1) Glucose (Fingerstick) 173 mg/dL (70-99) Microbiology 11/16/18 Blood Culture - Final, Complete Medications Current Medications Sodium Chloride 1,000 ml @ 1,000 mls/hr 1X ONCE IV Last administered on 11/16/18at 17:07; Start 11/16/18 at 17:00; Stop 11/16/18 at 17:59; Status DC Ceftriaxone Sodium (Rocephin) 1 gm 1X ONCE IVP Last administered on 11/16/18at 17:30; Start 11/16/18 at 18:00; Stop 11/16/18 at 18:01; Status DC Diphenhydramine HCl (Benadryl) 12.5 mg 1X ONCE IVP Last administered on 11/16/18at 17:30; Start 11/16/18 at 18:00; Stop 11/16/18 at 18:01; Status DC Sodium Chloride 1,000 ml @ 1,000 mls/hr 1X ONCE IV Last administered on 11/16/18at 17:57; Start 11/16/18 at 17:45; Stop 11/16/18 at 18:44; Status DC Potassium Chloride (Klor-Con) 20 meq 1X ONCE PO Last administered on 11/16/18at 17:56; Start 11/16/18 at 17:45; Stop 11/16/18 at 17:47; Status DC Insulin Human Regular (HumuLIN R VIAL) 6 unit 1X ONCE IV Last administered on 11/16/18at 17:58; Start 11/16/18 at 17:45; Stop 11/16/18 at 17:47; Status DC Insulin Human Lispro (HumaLOG) 0-7 UNITS TIDWMEALS SQ ; Start 11/17/18 at 08:00; Stop 11/17/18 at 08:00; Status DC Dextrose (Dextrose 50%-Water Syringe) 12.5 gm PRN Q15MIN PRN IV SEE COMMENTS; Start 11/16/18 at 18:15 Lorazepam (Ativan Inj) 0.5 mg PRN Q6HRS PRN IV ANXIETY / AGITATION; Start 11/16/18 at 18:00 Ondansetron HCl (Zofran) 4 mg PRN Q6HRS PRN IV NAUSEA/VOMITING; Start 11/16/18 at 18:00 Zolpidem Tartrate (Ambien) 5 mg PRN QHS PRN PO INSOMNIA, MAY REPEAT IN 1HR; Start 11/16/18 at 18:00 Info (Icu Electrolyte Protocol) 1 ea DAILY MC ; Start 11/17/18 at 09:00 Heparin Sodium (Porcine) (Heparin Sodium) 5,000 unit Q12HR SQ Last administered on 11/16/18at 21:28; Start 11/16/18 at 19:00 Sodium Chloride (Normal Saline Flush) 3 ml QSHIFT PRN IV AFTER MEDS AND BLOOD DRAWS; Start 11/16/18 at 18:00 Sodium Chloride 1,000 ml @ 100 mls/hr Q10H IV Last administered on 11/17/18at 08:10; Start 11/16/18 at 17:56 Lactulose (Lactulose) 20 gm PRN Q12HR PRN PO CONSTIPATION; Start 11/16/18 at 18:00 Insulin Human Lispro (HumaLOG) 0-7 UNITS TIDWMEALS SQ Last administered on 11/17/18at 08:11; Start 11/17/18 at 08:00 Dextrose (Dextrose 50%-Water Syringe) 12.5 gm PRN Q15MIN PRN IV SEE COMMENTS; Start 11/16/18 at 18:00 Acetaminophen (Tylenol) 650 mg PRN Q6HRS PRN PO MILD - MODERATE PAIN; Start 11/16/18 at 18:00 Amlodipine Besylate (Norvasc) 10 mg DAILY PO ; Start 11/17/18 at 09:00 Aspirin (Robert Aspirin) 325 mg DAILY PO ; Start 11/17/18 at 09:00 Atorvastatin Calcium (Lipitor) 80 mg QHS PO Last administered on 11/16/18at 21:22; Start 11/16/18 at 21:00 Carvedilol (Coreg) 12.5 mg BIDWMEALS PO Last administered on 11/17/18at 08:10; Start 11/16/18 at 18:30 Chlorthalidone (Thalitone) 25 mg DAILY PO ; Start 11/17/18 at 09:00 Clonidine HCl (Catapres) 0.1 mg PRN Q8HRS PRN PO HYPERTENSION; Start 11/16/18 at 18:00 Lactobacillus Rhamnosus (Culturelle) 1 cap BID PO Last administered on 11/16/18at 21:22; Start 11/16/18 at 21:00 Oxycodone/ Acetaminophen (Percocet 5/325) 1 tab PRN Q4HRS PRN PO SEVERE PAIN 7- 10 Last administered on 11/16/18at 22:38; Start 11/16/18 at 18:00 Pantoprazole Sodium (Protonix) 40 mg DAILYAC PO Last administered on 11/17/18at 08:09; Start 11/17/18 at 07:30 Potassium Chloride (Klor-Con) 20 meq DAILYWBKFT PO Last administered on 11/17/18at 08:09; Start 11/17/18 at 08:00 Trazodone HCl (Desyrel) 100 mg QHS PO Last administered on 11/16/18 21:22; Start 11/16/18 at 21:00 Citalopram Hydrobromide (CeleXA) 40 mg DAILY PO ; Start 11/17/18 at 09:00 Insulin Human Lispro (HumaLOG) 24 units TIDWMEALS SQ ; Start 11/17/18 at 08:00; Stop 11/17/18 at 08:00; Status DC Insulin Glargine (Lantus) 64 units QHS SQ Last administered on 11/16/18at 21:47; Start 11/16/18 at 21:00; Stop 11/16/18 at 23:31; Status DC Levothyroxine Sodium (Synthroid) 250 mcg DAILY06 PO Last administered on 11/17/18at 06:25; Start 11/17/18 at 06:00 Lidocaine (Lidoderm) 1 patch DAILY TD ; Start 11/17/18 at 09:00 Losartan Potassium (Cozaar) 100 mg DAILY PO ; Start 11/17/18 at 09:00 Non-Formulary Medication (Semaglutide (Ozempic)) 0.5 mg QFR SQ ; Start 11/23/18 at 16:00 Trazodone HCl (Desyrel) 50 mg QHS PO Last administered on 11/16/18at 21:29; Start 11/16/18 at 21:00 Vancomycin HCl 2 gm/Sodium Chloride 500 ml @ 250 mls/hr 1X ONCE IV Last administered on 11/16/18at 18:32; Start 11/16/18 at 19:00; Stop 11/16/18 at 20:59; Status DC Magnesium Sulfate 50 ml @ 25 mls/hr 1X ONCE IV Last administered on 11/16/18at 20:48; Start 11/16/18 at 18:15; Stop 11/16/18 at 20:14; Status DC Hydrochlorothiazide (Microzide) 12.5 mg DAILY PO ; Start 11/17/18 at 09:00 Sodium Chloride 1,000 ml @ 1,000 mls/hr 1X ONCE IV Last administered on 11/16/18at 20:46; Start 11/16/18 at 20:45; Stop 11/16/18 at 21:44; Status DC Insulin Glargine (Lantus) 90 units QHS SQ ; Start 11/17/18 at 21:00 Insulin Human Lispro (HumaLOG) 35 units TIDWMEALS SQ Last administered on 11/17/18at 08:12; Start 11/17/18 at 08:00 Active Scripts Active Lidocaine 1 Each Adh..patch 1 Patch TD DAILY 14 Days Culturelle (Lactobacillus Rhamnosus Gg) 1 Each Cap.sprink 1 Cap PO BID 30 Days Chlorthalidone (Chlorthalidone) 25 Mg Tablet 25 Mg PO DAILY 14 Days Klor-Con M20 (Potassium Chloride) 20 Meq Tab.er.prt 20 Meq PO DAILYWBKFT 14 Days Percocet 5-325 Mg Tablet (Oxycodone/Acetaminophen) 1 Each Tablet 1 Tab PO PRN Q4HRS PRN 10 Days Tylenol (Acetaminophen) 325 Mg Tablet 650 Mg PO PRN Q6HRS PRN 30 Days Amlodipine Besylate 10 Mg Tablet 10 Mg PO DAILY 30 Days Catapres (Clonidine Hcl) 0.1 Mg Tablet 0.1 Mg PO PRN Q8HRS PRN 30 Days Carvedilol (Carvedilol) 12.5 Mg Tablet 12.5 Mg PO BIDWMEALS 30 Days Atorvastatin Calcium 40 Mg Tablet 80 Mg PO QHS 30 Days Amox Tr-K Clv 500-125 Mg Tab (Amoxicillin/Potassium Clav) 1 Each Tablet 1 Tab PO BID 14 Days Reported Tresiba Flextouch U-100 (Insulin Degludec) 100 Unit/1 Ml Insuln.pen 90 Unit SQ HS Novolog (Insulin Aspart) 100 Unit/1 Ml Cartridge 35 Unit SQ TIDAC Ozempic (Semaglutide) 0.25 Mg/0.2 Ml Pen.injctr 0.5 Mg SQ QFR Levothyroxine Sodium 125 Mcg Tablet 250 Mcg PO DAILYAC Trazodone Hcl 100 Mg Tablet 1 Tab PO QHS Trazodone Hcl 50 Mg Tablet 1 Tab PO QHS Protonix (Pantoprazole Sodium) 40 Mg Tablet.dr 1 Tab PO DAILY Aspirin 325 Mg Tablet 1 Tab PO DAILY Losartan-Hctz 100-12.5 Mg Tab (Losartan/Hydrochlorothiazide) 1 Each Tablet 1 Tab PO DAILY Escitalopram Oxalate 10 Mg Tablet 20 Mg PO DAILY Vitals/I & O Vital Sign - Last 24 Hours 11/16/18 11/16/18 11/16/18 11/16/18 16:51 17:20 17:50 18:20 Temp 98.2 98.2 Pulse 91 86 80 Resp 20 B/P (MAP) 127/59 (81) 107/53 (71) 106/56 (73) 108/58 (75) Pulse Ox 94 95 93 O2 Delivery Room Air Room Air Room Air Room Air 11/16/18 11/16/18 11/16/18 11/16/18 18:50 19:00 19:15 19:30 Temp 98.2 98.2 Pulse 74 74 74 Resp 14 14 21 B/P (MAP) 110/53 (72) 111/58 (75) 105/56 (72) 110/60 (77) Pulse Ox 95 95 94 O2 Delivery Room Air Nasal Cannula Nasal Cannula Nasal Cannula O2 Flow Rate 2.0 2.0 2.0 11/16/18 11/16/18 11/16/18 11/16/18 19:45 20:00 20:30 21:00 Pulse 74 72 78 Resp 18 24 22 B/P (MAP) 118/52 (74) 116/43 (67) 96/48 (64) Pulse Ox 95 94 94 O2 Delivery Nasal Cannula Nasal Cannula Nasal Cannula Nasal Cannula O2 Flow Rate 2.0 2.0 2.0 2.0 11/16/18 11/16/18 11/16/18 11/17/18 22:00 22:38 23:00 00:00 Temp 98.6 98.6 Pulse 80 70 66 Resp 20 22 23 B/P (MAP) 97/58 (71) 110/51 (70) 110/53 (72) Pulse Ox 94 94 92 94 O2 Delivery Nasal Cannula BiPAP/CPAP BiPAP/CPAP O2 Flow Rate 2.0 2.0 2.0 11/17/18 11/17/18 11/17/18 11/17/18 00:15 01:00 02:00 03:00 Pulse 68 68 74 Resp 22 B/P (MAP) 121/60 (80) 117/60 (79) 106/47 (66) Pulse Ox 91 90 92 O2 Delivery Nasal Cannula BiPAP/CPAP BiPAP/CPAP BiPAP/CPAP O2 Flow Rate 2.0 2.0 5.0 5.0 11/17/18 11/17/18 11/17/18 11/17/18 04:00 04:15 05:00 06:00 Temp 98.7 98.7 Pulse 72 66 66 Resp 15 19 13 B/P (MAP) 102/51 (68) 113/53 (73) 110/52 (71) Pulse Ox 90 92 92 O2 Delivery BiPAP/CPAP Bi-pap BiPAP/CPAP BiPAP/CPAP O2 Flow Rate 5.0 2.0 5.0 5.0 11/17/18 11/17/18 11/17/18 11/17/18 07:00 08:00 08:00 08:10 Temp 98.9 98.9 Pulse 82 72 69 Resp 15 15 B/P (MAP) 134/68 (90) 122/63 (82) 122/63 Pulse Ox 95 93 O2 Delivery BiPAP/CPAP Bi-pap Room Air O2 Flow Rate 5.0 2.0 Intake and Output 11/16/18 11/16/18 11/17/18 14:59 22:59 06:59 Intake Total 3550 ml 1025 ml Output Total 200 ml Balance 3350 ml 1025 ml NIKITA DU MD November 17, 2018 09:48
[2018-11-17] MEDS: ASPIRIN 325 MG TABLET PO SCH (10:30)
[2018-11-17] MEDS: LIDOCAINE (700MG/PATCH) PATCH. TD SCH (10:30)
[2018-11-17] MEDS: LOSARTAN POTASSIUM 50 MG TABLET. PO SCH (10:30)
[2018-11-17] MEDS: CITALOPRAM 20 MG TABLET. PO SCH (10:30)
[2018-11-17] MEDS: LACTOBACILLUS RHAMNOSUS GG 1 CAPSULE. PO SCH ×2 (10:32→21:03)
[2018-11-17] MEDS: HEPARIN for SUB-Q USE 5,000 UNIT/ML VIAL. SQ SCH ×2 (10:33→21:07)
[2018-11-17] MEDS: CHLORTHALIDONE 25 MG TABLET. PO SCH (10:35)
--- NOTE | 2018-11-17 11:22 | PDOC ---
Infectious Disease Note Vital Sign Vital Signs Vital Signs Date Time Temp Pulse Resp B/P (MAP) Pulse Ox O2 Delivery O2 Flow Rate FiO2 11/17/18 10:30 65 11/17/18 08:10 122/63 11/17/18 08:00 98.9 15 93 Room Air 98.9 11/17/18 08:00 2.0 Labs Lab Laboratory Tests Test 11/16/18 16:45 11/16/18 16:57 11/16/18 21:43 11/16/18 21:45 Urine Color Red Urine Clarity Turbid Urine pH 5.5 Urine Specific [place] 1.020 Urine Protein >=300 mg/dL (NEG-TRACE) Urine Glucose (UA) 100 mg/dL (NEG) Urine Ketones (Stick) Trace mg/dL (NEG) Urine Blood Large (NEG) Urine Nitrite Negative (NEG) Urine Bilirubin Small (NEG) Urine Urobilinogen Dipstick 1.0 mg/dL (0.2 mg/dL) Urine Leukocyte Esterase Large (NEG) Urine RBC 11-20 /HPF (0-2) Urine WBC Tntc /HPF (0-4) Urine Squamous Epithelial Cells Occ /LPF Urine Bacteria Moderate /HPF (0-FEW) White Blood Count 16.0 x10^3/uL (4.0-11.0) Red Blood Count 3.98 x10^6/uL (3.50-5.40) Hemoglobin 11.4 g/dL (12.0-15.5) Hematocrit 34.8 % (36.0-47.0) Mean Corpuscular Volume 87 fL (79-100) Mean Corpuscular Hemoglobin 29 pg (25-35) Mean Corpuscular Hemoglobin Concent 33 g/dL (31-37) Red Cell Distribution Width 14.0 % (11.5-14.5) Platelet Count 95 x10^3/uL (140-400) Neutrophils (%) (Auto) 88 % (31-73) Lymphocytes (%) (Auto) 4 % (24-48) Monocytes (%) (Auto) 8 % (0-9) Eosinophils (%) (Auto) 0 % (0-3) Basophils (%) (Auto) 0 % (0-3) Neutrophils # (Auto) 14.1 x10^3uL (1.8-7.7) Lymphocytes # (Auto) 0.6 x10^3/uL (1.0-4.8) Monocytes # (Auto) 1.3 x10^3/uL (0.0-1.1) Eosinophils # (Auto) 0.0 x10^3/uL (0.0-0.7) Basophils # (Auto) 0.0 x10^3/uL (0.0-0.2) Segmented Neutrophils % 88 % (35-66) Lymphocytes % 3 % (24-48) Monocytes % 9 % (0-10) Platelet Estimate Decreased (ADEQUATE) Polychromasia Slight Anisocytosis Slight Prothrombin Time 14.7 SEC (11.7-14.0) Prothromb Time International Ratio 1.2 (0.8-1.1) Activated Partial Thromboplast Time 34 SEC (24-38) Sodium Level 128 mmol/L (136-145) Potassium Level 3.4 mmol/L (3.5-5.1) Chloride Level 90 mmol/L (98-107) Carbon Dioxide Level 23 mmol/L (21-32) Anion Gap 15 (6-14) Blood Urea Nitrogen 25 mg/dL (7-20) Creatinine 2.0 mg/dL (0.6-1.0) Estimated GFR (Cockcroft-Gault) 24.8 BUN/Creatinine Ratio 13 (6-20) Glucose Level 324 mg/dL (70-99) Lactic Acid Level 3.9 mmol/L (0.4-2.0) 2.1 mmol/L (0.4-2.0) Calcium Level 9.7 mg/dL (8.5-10.1) Magnesium Level 1.4 mg/dL (1.8-2.4) Total Bilirubin 0.8 mg/dL (0.2-1.0) Aspartate Amino Transf (AST/SGOT) 26 U/L (15-37) Alanine Aminotransferase (ALT/SGPT) 37 U/L (14-59) Alkaline Phosphatase 91 U/L (46-116) Total Protein 7.3 g/dL (6.4-8.2) Albumin 2.8 g/dL (3.4-5.0) Albumin/Globulin Ratio 0.6 (1.0-1.7) Glucose (Fingerstick) 307 mg/dL (70-99) Test 11/17/18 04:30 11/17/18 08:08 White Blood Count 9.1 x10^3/uL (4.0-11.0) Red Blood Count 3.46 x10^6/uL (3.50-5.40) Hemoglobin 10.0 g/dL (12.0-15.5) Hematocrit 30.3 % (36.0-47.0) Mean Corpuscular Volume 88 fL (79-100) Mean Corpuscular Hemoglobin 29 pg (25-35) Mean Corpuscular Hemoglobin Concent 33 g/dL (31-37) Red Cell Distribution Width 13.8 % (11.5-14.5) Platelet Count 76 x10^3/uL (140-400) Neutrophils (%) (Auto) 87 % (31-73) Lymphocytes (%) (Auto) 6 % (24-48) Monocytes (%) (Auto) 7 % (0-9) Eosinophils (%) (Auto) 1 % (0-3) Basophils (%) (Auto) 0 % (0-3) Neutrophils # (Auto) 7.9 x10^3uL (1.8-7.7) Lymphocytes # (Auto) 0.5 x10^3/uL (1.0-4.8) Monocytes # (Auto) 0.7 x10^3/uL (0.0-1.1) Eosinophils # (Auto) 0.0 x10^3/uL (0.0-0.7) Basophils # (Auto) 0.0 x10^3/uL (0.0-0.2) Sodium Level 136 mmol/L (136-145) Potassium Level 3.5 mmol/L (3.5-5.1) Chloride Level 100 mmol/L (98-107) Carbon Dioxide Level 27 mmol/L (21-32) Anion Gap 9 (6-14) Blood Urea Nitrogen 23 mg/dL (7-20) Creatinine 1.4 mg/dL (0.6-1.0) Estimated GFR (Cockcroft-Gault) 37.4 Glucose Level 238 mg/dL (70-99) Calcium Level 8.7 mg/dL (8.5-10.1) Glucose (Fingerstick) 173 mg/dL (70-99) IMPRESSION: Interval placement of a double-J ureteral stent into the right collecting system. There has been interval decrease in size of the right renal calculi consistent with the patient's history of lithotripsy. Mild fullness of the right intrarenal collecting system is seen. No hematoma or abnormal fluid collection is noted. Micro 11/16. BLOOD CULTURE Final GRAM NEGATIVE RODS SEEN IN 1 OF 4 BOTTLES; 2 SETS WERE DRAWN; RESULTS WERE CALLED TO DEISY BILLINGS IN ICU; 11/17/18; 0900 BY DARRON. THE BLOOD CULTURES HAVE BEEN SENT TO [facility] FOR FURTHER WORKUP. Objective Assessment GNR bacteremia with sepsis, POA -Recent clindamycin Complicated UTI, POA Leukocytosis Allergy Ceftriaxone, Keflex, cipro, Levaquin all w/ rash. Tolerated Zosyn wo problem in past. Obstructive uropathy from nephrolithiasis s/p uretal stent placement and lithotripsy at [facility] 11/13. AMINTA Morbid obesity Hypothyroidism h/o E. coli and Proteus bacteremia Plan Plan of Care Dose Zosyn (tolerated well in past) Await GNR ID/susceptibilities Monitor WBC, temp and renal function Supportive care D/w nursing Thank you [phone] [id number] Patient seen, examined, I agree with above assessment and plan as laid out by PHOTOGRAPHIC PROCESSOR. LAbs and Micro reviewed D/W IAIN CINTRON APRN November 17, 2018 11:22 LAURA BRAND MD November 17, 2018 14:09
[2018-11-17] MEDS: PIPERACILLIN/TAZOBACTAM 3.375 GM in IV NORMAL SALINE 50ML 50 ML IV SCH ×2 (14:54→18:33)
[2018-11-17] MEDS: ACETAMINOPHEN 325 MG TABLET. PO PRN (15:00)
[2018-11-17] MEDS: oxyCODONE/APAP 5/325 1 TAB TABLET PO PRN (19:33)
--- NOTE | 2018-11-17 20:13 | CONS ---
DATE OF CONSULTATION: MEDICATIONS: One-time dose of vancomycin, 11/16. One-time dose of ceftriaxone with Benadryl, 11/16. Probiotics. Other medications are available and have been reviewed on the AUG. REVIEW OF SYSTEMS: As per HPI, otherwise all other review of systems is negative. PHYSICAL EXAMINATION: VITAL SIGNS: Afebrile, blood pressure 122/63, heart rate 65, respiratory rate 15, pulse oximetry is 93% on room air. GENERAL: The patient is lying down, alert, on CPAP. No apparent distress. HEENT: Pupils equally round, reactive. Normal conjunctivae. Oral cavity: Pharynx pink, dry. NECK: Supple. LUNGS: Clear to auscultation. HEART: S1 and S2. ABDOMEN: Obese, soft, nontender. GENITOURINARY: PureWick in place. EXTREMITIES: No gross edema or cyanosis SKIN: Warm without generalized rash. NEUROLOGIC: Alert and oriented x 3. LABORATORY DATA: Today's WBC 9.1 from 16.0 on admission, hemoglobin 10.0, platelets 76,000 from 95,000 on admission. Creatinine 1.4 from 2.0 on admission, BUN 23, sodium 136 from 128 on admission, potassium 3.5, glucose 238. Lactic acid 2.1 from 3.9. Albumin 2.8, total bilirubin 0.8, AST 26, ALT 37. Urinalysis and cultures per HPI. Abdominal/pelvis CT showed interval placement of double-J ureter stent into the right collecting system. Interval decrease in size of right renal calculi, consistent with the patient's history of lithotripsy. Mild fullness of the right intrarenal collecting system seen. No hematoma or abdominal fluid collection noted. Chest x-ray showed no acute abnormality. IMPRESSION: Dose Zosyn. Await GNR identification and susceptibilities. Continue to monitor WBC count, temperature and renal function closely. Supportive care. Discussed with nursing. Thank you, Dr. Katz, for asking us to participate in this patient's care. If you have further questions or concerns, please call. LAURA BRAND MD DR: DENIS/crys JOB#: [id number] / [id number]
[2018-11-17] MEDS: traZODone 50 MG TABLET. PO SCH (21:03)
[2018-11-17] MEDS: traZODone 100 MG TABLET. PO SCH (21:03)
[2018-11-17] MEDS: ATORVASTATIN CALCIUM 40 MG TABLET. PO SCH (21:03)
[2018-11-17] MEDS: INSULIN GLARGINE 300 UNITS/3 ML INSULN.PEN. SQ SCH (21:07)
[2018-11-18] VITALS (16 sets, daily range): BP systolic 98–171; BP diastolic 45–76
--- NOTE | 2018-11-18 00:37 | CONS ---
DATE OF CONSULTATION: 11/17/2018 INCOMPLETE DICTATION DICTATED BY: This is Yovani Ross, nurse practitioner, dictating for Dr. Chidi Hayward, Infectious Disease. REFERRING PHYSICIAN: Dr. Katz. REASON FOR CONSULTATION: Urosepsis and positive blood cultures. HISTORY OF PRESENT ILLNESS: This patient is a 68-year-old female with a history of obstructive uropathy and a large right staghorn calculi, who underwent ureteral stent placement and lithotripsy on 11/13/2018 at [facility]. Post-procedure, she developed worsening right flank pain, chills and body aches. She has taken clindamycin without relief. She presented to the ER yesterday. She was found to have elevated white blood cell count of 16,000, lactic acid 3.9 and a creatinine of 2.0. She was afebrile with a heart rate of 91. Urinalysis showed wbc's too numerous to count, large leukocyte esterase and blood with occasional squamous epithelial cells and moderate bacteria. Urine culture is pending. Blood cultures returned with gram-negative rods seen in 1 of 4 bottles. She received a one-time dose of vancomycin and ceftriaxone with Benadryl in the ER and is currently not on any antibiotics at this time. ID has been asked to consult for further evaluation and antibiotic management. The patient states she is feeling more comfortable. Her chills and body aches have settled down. She denies fevers or sweats. She reports having painful urination prior to admission. She has a history of multiple urinary tract infections. She was hospitalized in 08/2018 with Proteus mirabilis UTI (resistant NTF and tetra). She developed a rash with ceftriaxone. She was treated with Zosyn and discharged on Augmentin. She denies nausea, vomiting or diarrhea. PAST MEDICAL HISTORY: E. coli bacteremia (resistant to Augmentin, ampicillin, cefazolin, cephalothin, piperacillin, intermediate cefuroxime; otherwise sensitive), Proteus mirabilis (resistant NTF and tetra) bacteremia. Multiple UTIs. Obstructive uropathy from nephrolithiasis, large right staghorn calculi. History of ovarian cancer, hypertension, hyperlipidemia, CVA, GERD, depression, anxiety, osteoarthritis, urinary incontinence, diabetes, hypothyroidism and also had morbid obesity. PAST SURGICAL HISTORY: Ureteral stent placement and lithotripsy, as mentioned above; cholecystectomy; bladder stimulation surgery and ovarian cancer surgery. FAMILY HISTORY: Positive for coronary artery disease and cirrhosis. SOCIAL HISTORY: The patient is and lives at home. Nonsmoker. ALLERGIES: CEFTRIAXONE AND CEPHALEXIN CAUSING RASH. CIPROFLOXACIN AND LEVOFLOXACIN CAUSING A RASH AND . DICTATION ENDS HERE. BETO MD KORINA DR: ANNA/crys JOB#: [id number] / [id number]
[2018-11-18 04:24] LABS: BASO % 0 % (0-3); EOS # 0.1 x10^3/uL (0.0-0.7); EOS % 2 % (0-3); HEMATOCRIT 33.2 % (36.0-47.0); LYMPH # 0.8 x10^3/uL (1.0-4.8); LYMPH % 10 % (24-48); MEAN CORPUSCULAR HEMOGLOBIN 29 pg (25-35); MEAN CORPUSCULAR HGB CONC 33 g/dL (31-37); MEAN CORPUSCULAR VOLUME 88 fL (79-100); MONO # 0.8 x10^3/uL (0.0-1.1); MONO % 9 % (0-9); NEUT # 6.6 x10^3uL (1.8-7.7); NEUT % 79 % (31-73); PLATELET COUNT 110 x10^3/uL (140-400); RED BLOOD COUNT 3.76 x10^6/uL (3.50-5.40); WHITE BLOOD COUNT 8.3 x10^3/uL (4.0-11.0)
[2018-11-18 04:49] LABS: ALBUMIN 2.3 g/dL (3.4-5.0); ALBUMIN/GLOBULIN RATIO 0.5 (1.0-1.7); CALCIUM 9.3 mg/dL (8.5-10.1); CREATININE 1.3 mg/dL (0.6-1.0); GFR 40.7; POTASSIUM 3.2 mmol/L (3.5-5.1); TOTAL BILIRUBIN 0.4 mg/dL (0.2-1.0)
[2018-11-18] MEDS: PIPERACILLIN/TAZOBACTAM 3.375 GM in IV NORMAL SALINE 50ML 50 ML IV SCH ×5 (06:16→17:20)
[2018-11-18] MEDS: IV NORMAL SALINE 1000ML BAG 1,000 ML IV SCH ×2 (06:16→17:26)
[2018-11-18] MEDS: LEVOTHYROXINE 125 MCG TABLET PO SCH (06:16)
[2018-11-18] MEDS: POTASSIUM CHLORIDE 20 MEQ TABLET.ER. PO SCH (08:00)
[2018-11-18] MEDS: CARVEDILOL 12.5 MG TABLET. PO SCH ×2 (08:00→17:35)
[2018-11-18] MEDS: INSULIN LISPRO 300 UNITS/3 ML INSULN.PEN. SQ SCH ×6 (08:00→17:00)
[2018-11-18] MEDS: PANTOPRAZOLE 40 MG TABLET.DR. PO SCH (08:18)
[2018-11-18] MEDS: ASPIRIN 325 MG TABLET PO SCH (08:18)
[2018-11-18] MEDS: CHLORTHALIDONE 25 MG TABLET. PO SCH (08:18)
[2018-11-18] MEDS: hydroCHLOROthiazide 12.5 MG CAPSULE PO SCH (08:18)
[2018-11-18] MEDS: LACTOBACILLUS RHAMNOSUS GG 1 CAPSULE. PO SCH ×2 (08:18→21:41)
[2018-11-18] MEDS: HEPARIN for SUB-Q USE 5,000 UNIT/ML VIAL. SQ SCH ×2 (08:21→21:46)
[2018-11-18] MEDS: amLODIPine BESYLATE 10 MG TABLET PO SCH (08:22)
[2018-11-18] MEDS: LOSARTAN POTASSIUM 50 MG TABLET. PO SCH (08:22)
[2018-11-18] MEDS: LIDOCAINE (700MG/PATCH) PATCH. TD SCH (08:22)
[2018-11-18] MEDS ORDERED: POTASSIUM CHLORIDE 20 MEQ TABLET.ER. PO ONE ×2 (08:30→10:00)
--- NOTE | 2018-11-18 08:47 | PDOC ---
PROGRESS NOTES Chief Complaint Chief Complaint Patient was diagnosed with Kiko 3 cm staghorn calculi and was seen in consultation by urology at [place], patient underwent lithotripsy on Monday (5 d ago) by Dr. Cazares at [facility]. She states it was an outpt procedure and she went home and has been feeling more and more discomfort in her R flank and low abd and today was having chills. She is currently on Clindamycin. She has had why she was very concerned due to her symptoms today. By the time she had her third bout of "feeling cold" she knew was time to seek medical attention and came to the emergency department for evaluation and treatment. She was found to be in early sepsis secondary to a urinary tract infection History of Present Illness History of Present Illness VTE Prophylaxis Ordered VTE Prophylaxis Devices: Yes VTE Pharmacological Prophylaxi: Yes Assessment/Plan GNR bacteremia with sepsis, POA Obstructive uropathy from nephrolithiasis s/p uretal stent placement and lithotripsy at [facility] 11/13. Sepsis secondary to UTI Lactic acidosis as a consequence of the above thrombocytopenia most likely due ot sepsis Acute renal failure secondary to sepsis and prerenal azotemia Severe dehydration Hyponatremia secondary to low effective circulatory volume Hypokalemia history of essential hypertension DM type 2 morbid obesity with BMI of 47 low back pain Interval placement of a double-J ureteral stent into the right collecting system. There has been interval decrease in size of the right renal calculi consistent with the patient's history of lithotripsy. Mild fullness of the right intrarenal collecting system is seen. No hematoma or abnormal fluid collection is noted. Plan: cont intensive care unit monitoring Broad-spectrum antibiotics with Rocephin and vancomycin We'll repeat labs in the a.m. Follow lactic acid r Fluid resuscitation as per protocol has been initiated 2 L boluses and will care maintenance fluids Resume home medications once available for review Follow urinary output Further recommendations based on the clinical course DVT prophylaxis with SCD and teds UROLOGY consult RE STAGHORN RENAL CALCULUS 34 min cc time Vitals Vitals Vital Signs Date Time Temp Pulse Resp B/P (MAP) Pulse Ox O2 Delivery O2 Flow Rate FiO2 11/18/18 07:00 54 16 113/56 (75) 95 BiPAP/CPAP 5.0 11/18/18 04:00 98.7 98.7 Physical Exam General: Alert, Oriented X3, Cooperative, mild distress Heart: Regular rate, Normal S1, Normal S2, No murmurs Lungs: Clear Abdomen: Normal bowel sounds, Soft Extremities: No clubbing, No cyanosis, No edema Skin: No significant lesion Labs LABS Fernando Rich M.D., [employer] PATIENT: BENNY LIPSCOMB ACCT: [id number] LOC: 1 [place] ICU U: [id number] AGE/SX: 68/F ROOM: [facility] RE11/16/[address]: JUDY AVILA MD : [id number] BED: 1 DIS: STATUS: ADM IN TLOC: ------ SPEC #: [id number] FRANCY: 11/16/18 STATUS: COMP REQ #: [id number] RECD: 11/16/[address]: LUDY CARR DO SOURCE: BLOOD ENTR: 11/16/[address]: GABRIELA,STAFF SPDC: MEI MOCK MD ORDERED: BCULT Procedure Result BLOOD CULTURE Final GRAM NEGATIVE RODS SEEN IN 1 OF 4 BOTTLES; 2 SETS WERE DRAWN; RESULTS WERE CALLED TO DEISY BILLINGS IN ICU; 11/17/18; 0900 BY DARRON. THE BLOOD CULTURES HAVE BEEN SENT TO [facility] FOR FURTHER WORKUP. FINDINGS: Comparison study is dated 09/25/2018. Images through the lung bases demonstrate mild cardiomegaly. Dependent subsegmental atelectasis is seen involving both lower lobes. The liver parenchyma has a decreased attenuation consistent with fatty infiltration. The spleen, pancreas and right adrenal gland are within normal limits. Fullness of the left adrenal gland is seen, unchanged. A double-J ureteral stent has been placed in the right renal pelvis. This extends into the urinary bladder. A 2 cm nonobstructing calculus is seen involving the lower pole of the right kidney. A 3 cm nonobstructing calculus is seen involving the mid/lower pole the right kidney. Small collections of air are seen within the right intrarenal collecting system consistent with recent stent placement. Nonobstructing left renal calculi are seen which measure 3 mm to 1.1 cm in size. The right renal calculi have been fragmented and have decreased in size since the previous study consistent with lithotripsy. Mild dilatation of the right intrarenal collecting system is seen. There is no evidence of obstruction of the left collecting system. Atherosclerotic calcification of the abdominal aorta is seen. The abdominal aorta tapers normally. A stimulator is seen within the right gluteal region. Surgical clips are seen within the gallbladder fossa consistent with cholecystectomy. No free fluid or free air is seen within the abdomen. There is no evidence of bowel obstruction. Images through the pelvis demonstrate the urinary bladder distended with urine. Small amount of air is seen within the anterior aspect of the urinary bladder. Small bladder calculi are seen which measure 2 to 3 mm in size. Multiple diverticula are seen involving the sigmoid colon. No inflammatory changes are seen in the adjacent fat. A moderate amount of stool is seen within the rectum. No free fluid is seen. The osseous structures are unchanged. IMPRESSION: Interval placement of a double-J ureteral stent into the right collecting system. There has been interval decrease in size of the right renal calculi consistent with the patient's history of lithotripsy. Mild fullness of the right intrarenal collecting system is seen. No hematoma or abnormal fluid collection is noted. Electronically signed by: Selvin Henriquez MD (11/16/2018 8:22 PM) [facility] Laboratory Tests CTA of the chest, abdomen and pelvis with contrast, 09/26/2018: HISTORY: Follow-up thoracic aortic aneurysm Multidetector CT imaging was performed following an IV bolus injection of iodinated contrast material. Multiplanar reconstructions were produced including 3-D volume rendered reconstructions of the major arteries. There is dilatation of the ascending aorta. It measures 4.7 cm in greatest width on the coronal images. There has been no significant change since 02/06/2017. Pulsation type artifacts are seen near the aortic root. There is no evidence of aortic dissection. The origins of the cervicocephalic arteries from the aortic arch are widely patent. At the mid aortic arch level the aorta measures approximately 3.5 cm. It measures approximately 2.6 cm in width at the descending thoracic aortic level. There are mild scattered atherosclerotic plaques in the thoracic aorta. There is more extensive atherosclerotic plaquing of the abdominal aorta without evidence of aneurysm or high-grade stenosis. The celiac and superior mesenteric artery origins are widely patent. There is mild calcific plaquing at the origins of both renal arteries without evidence of high-grade stenosis. A patent inferior mesenteric artery is evident. There is mild calcific plaquing in the common iliac, external iliac and common femoral arteries bilaterally without evidence of high-grade stenosis. Incidental CT findings include the presence of several moderate sized calculi in the right renal collecting system and a staghorn-type configuration. The largest of these measures 3.2 cm in width. There is no associated hydronephrosis. There is streaky increased density in the parapelvic fat on the right suggesting chronic inflammation or scarring. There are smaller nonobstructing intrarenal calculi on the left. There is bilateral renal cortical scarring, more so on the right. Mild left adrenal nodularity is stable. Moderate multilevel degenerative changes are present in the spine. IMPRESSION: 1. Stable aneurysmal dilatation of the ascending aorta. 2. Bilateral intrarenal calculi, worse on the right. Test 11/17/18 12:44 11/17/18 17:46 11/17/18 21:06 11/18/18 03:30 Glucose (Fingerstick) 78 mg/dL (70-99) 180 mg/dL (70-99) 176 mg/dL (70-99) White Blood Count 8.3 x10^3/uL (4.0-11.0) Red Blood Count 3.76 x10^6/uL (3.50-5.40) Hemoglobin 11.0 g/dL (12.0-15.5) Hematocrit 33.2 % (36.0-47.0) Mean Corpuscular Volume 88 fL (79-100) Mean Corpuscular Hemoglobin 29 pg (25-35) Mean Corpuscular Hemoglobin Concent 33 g/dL (31-37) Red Cell Distribution Width 14.0 % (11.5-14.5) Platelet Count 110 x10^3/uL (140-400) Neutrophils (%) (Auto) 79 % (31-73) Lymphocytes (%) (Auto) 10 % (24-48) Monocytes (%) (Auto) 9 % (0-9) Eosinophils (%) (Auto) 2 % (0-3) Basophils (%) (Auto) 0 % (0-3) Neutrophils # (Auto) 6.6 x10^3uL (1.8-7.7) Lymphocytes # (Auto) 0.8 x10^3/uL (1.0-4.8) Monocytes # (Auto) 0.8 x10^3/uL (0.0-1.1) Eosinophils # (Auto) 0.1 x10^3/uL (0.0-0.7) Basophils # (Auto) 0.0 x10^3/uL (0.0-0.2) Sodium Level 142 mmol/L (136-145) Potassium Level 3.2 mmol/L (3.5-5.1) Chloride Level 105 mmol/L (98-107) Carbon Dioxide Level 27 mmol/L (21-32) Anion Gap 10 (6-14) Blood Urea Nitrogen 23 mg/dL (7-20) Creatinine 1.3 mg/dL (0.6-1.0) Estimated GFR (Cockcroft-Gault) 40.7 BUN/Creatinine Ratio 18 (6-20) Glucose Level 57 mg/dL (70-99) Calcium Level 9.3 mg/dL (8.5-10.1) Total Bilirubin 0.4 mg/dL (0.2-1.0) Aspartate Amino Transf (AST/SGOT) 61 U/L (15-37) Alanine Aminotransferase (ALT/SGPT) 58 U/L (14-59) Alkaline Phosphatase 110 U/L (46-116) Total Protein 7.0 g/dL (6.4-8.2) Albumin 2.3 g/dL (3.4-5.0) Albumin/Globulin Ratio 0.5 (1.0-1.7) Test 11/18/18 08:20 Glucose (Fingerstick) 49 mg/dL (70-99) Assessment and Plan Assessmemt and Plan Problems Medical Problems: (1) Sepsis Status: Acute (2) Urinary tract infection Status: Acute Comment Review of Relevant I have reviewed the following items jeffrey (where applicable) has been applied. Labs Laboratory Tests Test 11/16/18 16:45 11/16/18 16:57 11/16/18 20:00 11/16/18 21:43 Urine Color Red Urine Clarity Turbid Urine pH 5.5 Urine Specific [place] 1.020 Urine Protein >=300 mg/dL (NEG-TRACE) Urine Glucose (UA) 100 mg/dL (NEG) Urine Ketones (Stick) Trace mg/dL (NEG) Urine Blood Large (NEG) Urine Nitrite Negative (NEG) Urine Bilirubin Small (NEG) Urine Urobilinogen Dipstick 1.0 mg/dL (0.2 mg/dL) Urine Leukocyte Esterase Large (NEG) Urine RBC 11-20 /HPF (0-2) Urine WBC Tntc /HPF (0-4) Urine Squamous Epithelial Cells Occ /LPF Urine Bacteria Moderate /HPF (0-FEW) White Blood Count 16.0 x10^3/uL (4.0-11.0) Red Blood Count 3.98 x10^6/uL (3.50-5.40) Hemoglobin 11.4 g/dL (12.0-15.5) Hematocrit 34.8 % (36.0-47.0) Mean Corpuscular Volume 87 fL (79-100) Mean Corpuscular Hemoglobin 29 pg (25-35) Mean Corpuscular Hemoglobin Concent 33 g/dL (31-37) Red Cell Distribution Width 14.0 % (11.5-14.5) Platelet Count 95 x10^3/uL (140-400) Neutrophils (%) (Auto) 88 % (31-73) Lymphocytes (%) (Auto) 4 % (24-48) Monocytes (%) (Auto) 8 % (0-9) Eosinophils (%) (Auto) 0 % (0-3) Basophils (%) (Auto) 0 % (0-3) Neutrophils # (Auto) 14.1 x10^3uL (1.8-7.7) Lymphocytes # (Auto) 0.6 x10^3/uL (1.0-4.8) Monocytes # (Auto) 1.3 x10^3/uL (0.0-1.1) Eosinophils # (Auto) 0.0 x10^3/uL (0.0-0.7) Basophils # (Auto) 0.0 x10^3/uL (0.0-0.2) Segmented Neutrophils % 88 % (35-66) Lymphocytes % 3 % (24-48) Monocytes % 9 % (0-10) Platelet Estimate Decreased (ADEQUATE) Polychromasia Slight Anisocytosis Slight Prothrombin Time 14.7 SEC (11.7-14.0) Prothromb Time International Ratio 1.2 (0.8-1.1) Activated Partial Thromboplast Time 34 SEC (24-38) Sodium Level 128 mmol/L (136-145) Potassium Level 3.4 mmol/L (3.5-5.1) Chloride Level 90 mmol/L (98-107) Carbon Dioxide Level 23 mmol/L (21-32) Anion Gap 15 (6-14) Blood Urea Nitrogen 25 mg/dL (7-20) Creatinine 2.0 mg/dL (0.6-1.0) Estimated GFR (Cockcroft-Gault) 24.8 BUN/Creatinine Ratio 13 (6-20) Glucose Level 324 mg/dL (70-99) Lactic Acid Level 3.9 mmol/L (0.4-2.0) Calcium Level 9.7 mg/dL (8.5-10.1) Magnesium Level 1.4 mg/dL (1.8-2.4) Total Bilirubin 0.8 mg/dL (0.2-1.0) Aspartate Amino Transf (AST/SGOT) 26 U/L (15-37) Alanine Aminotransferase (ALT/SGPT) 37 U/L (14-59) Alkaline Phosphatase 91 U/L (46-116) Total Protein 7.3 g/dL (6.4-8.2) Albumin 2.8 g/dL (3.4-5.0) Albumin/Globulin Ratio 0.6 (1.0-1.7) Nasal Screen MRSA (PCR) Negative (Negative) Glucose (Fingerstick) 307 mg/dL (70-99) Test 11/16/18 21:45 11/17/18 04:30 11/17/18 08:08 11/17/18 12:44 Lactic Acid Level 2.1 mmol/L (0.4-2.0) White Blood Count 9.1 x10^3/uL (4.0-11.0) Red Blood Count 3.46 x10^6/uL (3.50-5.40) Hemoglobin 10.0 g/dL (12.0-15.5) Hematocrit 30.3 % (36.0-47.0) Mean Corpuscular Volume 88 fL (79-100) Mean Corpuscular Hemoglobin 29 pg (25-35) Mean Corpuscular Hemoglobin Concent 33 g/dL (31-37) Red Cell Distribution Width 13.8 % (11.5-14.5) Platelet Count 76 x10^3/uL (140-400) Neutrophils (%) (Auto) 87 % (31-73) Lymphocytes (%) (Auto) 6 % (24-48) Monocytes (%) (Auto) 7 % (0-9) Eosinophils (%) (Auto) 1 % (0-3) Basophils (%) (Auto) 0 % (0-3) Neutrophils # (Auto) 7.9 x10^3uL (1.8-7.7) Lymphocytes # (Auto) 0.5 x10^3/uL (1.0-4.8) Monocytes # (Auto) 0.7 x10^3/uL (0.0-1.1) Eosinophils # (Auto) 0.0 x10^3/uL (0.0-0.7) Basophils # (Auto) 0.0 x10^3/uL (0.0-0.2) Sodium Level 136 mmol/L (136-145) Potassium Level 3.5 mmol/L (3.5-5.1) Chloride Level 100 mmol/L (98-107) Carbon Dioxide Level 27 mmol/L (21-32) Anion Gap 9 (6-14) Blood Urea Nitrogen 23 mg/dL (7-20) Creatinine 1.4 mg/dL (0.6-1.0) Estimated GFR (Cockcroft-Gault) 37.4 Glucose Level 238 mg/dL (70-99) Calcium Level 8.7 mg/dL (8.5-10.1) Glucose (Fingerstick) 173 mg/dL (70-99) 78 mg/dL (70-99) Test 11/17/18 17:46 11/17/18 21:06 11/18/18 03:30 11/18/18 08:20 Glucose (Fingerstick) 180 mg/dL (70-99) 176 mg/dL (70-99) 49 mg/dL (70-99) White Blood Count 8.3 x10^3/uL (4.0-11.0) Red Blood Count 3.76 x10^6/uL (3.50-5.40) Hemoglobin 11.0 g/dL (12.0-15.5) Hematocrit 33.2 % (36.0-47.0) Mean Corpuscular Volume 88 fL (79-100) Mean Corpuscular Hemoglobin 29 pg (25-35) Mean Corpuscular Hemoglobin Concent 33 g/dL (31-37) Red Cell Distribution Width 14.0 % (11.5-14.5) Platelet Count 110 x10^3/uL (140-400) Neutrophils (%) (Auto) 79 % (31-73) Lymphocytes (%) (Auto) 10 % (24-48) Monocytes (%) (Auto) 9 % (0-9) Eosinophils (%) (Auto) 2 % (0-3) Basophils (%) (Auto) 0 % (0-3) Neutrophils # (Auto) 6.6 x10^3uL (1.8-7.7) Lymphocytes # (Auto) 0.8 x10^3/uL (1.0-4.8) Monocytes # (Auto) 0.8 x10^3/uL (0.0-1.1) Eosinophils # (Auto) 0.1 x10^3/uL (0.0-0.7) Basophils # (Auto) 0.0 x10^3/uL (0.0-0.2) Sodium Level 142 mmol/L (136-145) Potassium Level 3.2 mmol/L (3.5-5.1) Chloride Level 105 mmol/L (98-107) Carbon Dioxide Level 27 mmol/L (21-32) Anion Gap 10 (6-14) Blood Urea Nitrogen 23 mg/dL (7-20) Creatinine 1.3 mg/dL (0.6-1.0) Estimated GFR (Cockcroft-Gault) 40.7 BUN/Creatinine Ratio 18 (6-20) Glucose Level 57 mg/dL (70-99) Calcium Level 9.3 mg/dL (8.5-10.1) Total Bilirubin 0.4 mg/dL (0.2-1.0) Aspartate Amino Transf (AST/SGOT) 61 U/L (15-37) Alanine Aminotransferase (ALT/SGPT) 58 U/L (14-59) Alkaline Phosphatase 110 U/L (46-116) Total Protein 7.0 g/dL (6.4-8.2) Albumin 2.3 g/dL (3.4-5.0) Albumin/Globulin Ratio 0.5 (1.0-1.7) Laboratory Tests Test 11/17/18 12:44 11/17/18 17:46 11/17/18 21:06 11/18/18 03:30 Glucose (Fingerstick) 78 mg/dL (70-99) 180 mg/dL (70-99) 176 mg/dL (70-99) White Blood Count 8.3 x10^3/uL (4.0-11.0) Red Blood Count 3.76 x10^6/uL (3.50-5.40) Hemoglobin 11.0 g/dL (12.0-15.5) Hematocrit 33.2 % (36.0-47.0) Mean Corpuscular Volume 88 fL (79-100) Mean Corpuscular Hemoglobin 29 pg (25-35) Mean Corpuscular Hemoglobin Concent 33 g/dL (31-37) Red Cell Distribution Width 14.0 % (11.5-14.5) Platelet Count 110 x10^3/uL (140-400) Neutrophils (%) (Auto) 79 % (31-73) Lymphocytes (%) (Auto) 10 % (24-48) Monocytes (%) (Auto) 9 % (0-9) Eosinophils (%) (Auto) 2 % (0-3) Basophils (%) (Auto) 0 % (0-3) Neutrophils # (Auto) 6.6 x10^3uL (1.8-7.7) Lymphocytes # (Auto) 0.8 x10^3/uL (1.0-4.8) Monocytes # (Auto) 0.8 x10^3/uL (0.0-1.1) Eosinophils # (Auto) 0.1 x10^3/uL (0.0-0.7) Basophils # (Auto) 0.0 x10^3/uL (0.0-0.2) Sodium Level 142 mmol/L (136-145) Potassium Level 3.2 mmol/L (3.5-5.1) Chloride Level 105 mmol/L (98-107) Carbon Dioxide Level 27 mmol/L (21-32) Anion Gap 10 (6-14) Blood Urea Nitrogen 23 mg/dL (7-20) Creatinine 1.3 mg/dL (0.6-1.0) Estimated GFR (Cockcroft-Gault) 40.7 BUN/Creatinine Ratio 18 (6-20) Glucose Level 57 mg/dL (70-99) Calcium Level 9.3 mg/dL (8.5-10.1) Total Bilirubin 0.4 mg/dL (0.2-1.0) Aspartate Amino Transf (AST/SGOT) 61 U/L (15-37) Alanine Aminotransferase (ALT/SGPT) 58 U/L (14-59) Alkaline Phosphatase 110 U/L (46-116) Total Protein 7.0 g/dL (6.4-8.2) Albumin 2.3 g/dL (3.4-5.0) Albumin/Globulin Ratio 0.5 (1.0-1.7) Test 11/18/18 08:20 Glucose (Fingerstick) 49 mg/dL (70-99) Microbiology 11/16/18 Blood Culture - Preliminary, Resulted NO GROWTH AFTER 1 DAY Medications Current Medications Sodium Chloride 1,000 ml @ 1,000 mls/hr 1X ONCE IV Last administered on 11/16/18at 17:07; Start 11/16/18 at 17:00; Stop 11/16/18 at 17:59; Status DC Ceftriaxone Sodium (Rocephin) 1 gm 1X ONCE IVP Last administered on 11/16/18at 17:30; Start 11/16/18 at 18:00; Stop 11/16/18 at 18:01; Status DC Diphenhydramine HCl (Benadryl) 12.5 mg 1X ONCE IVP Last administered on 11/16/18at 17:30; Start 11/16/18 at 18:00; Stop 11/16/18 at 18:01; Status DC Sodium Chloride 1,000 ml @ 1,000 mls/hr 1X ONCE IV Last administered on 11/16/18at 17:57; Start 11/16/18 at 17:45; Stop 11/16/18 at 18:44; Status DC Potassium Chloride (Klor-Con) 20 meq 1X ONCE PO Last administered on 11/16/18at 17:56; Start 11/16/18 at 17:45; Stop 11/16/18 at 17:47; Status DC Insulin Human Regular (HumuLIN R VIAL) 6 unit 1X ONCE IV Last administered on 11/16/18at 17:58; Start 11/16/18 at 17:45; Stop 11/16/18 at 17:47; Status DC Insulin Human Lispro (HumaLOG) 0-7 UNITS TIDWMEALS SQ ; Start 11/17/18 at 08:00; Stop 11/17/18 at 08:00; Status DC Dextrose (Dextrose 50%-Water Syringe) 12.5 gm PRN Q15MIN PRN IV SEE COMMENTS; Start 11/16/18 at 18:15; Stop 11/17/18 at 11:17; Status DC Lorazepam (Ativan Inj) 0.5 mg PRN Q6HRS PRN IV ANXIETY / AGITATION; Start 11/16/18 at 18:00 Ondansetron HCl (Zofran) 4 mg PRN Q6HRS PRN IV NAUSEA/VOMITING; Start 11/16/18 at 18:00 Zolpidem Tartrate (Ambien) 5 mg PRN QHS PRN PO INSOMNIA, MAY REPEAT IN 1HR; Start 11/16/18 at 18:00 Info (Icu Electrolyte Protocol) 1 ea DAILY MC ; Start 11/17/18 at 09:00 Heparin Sodium (Porcine) (Heparin Sodium) 5,000 unit Q12HR SQ Last administered on 11/18/18at 08:21; Start 11/16/18 at 19:00 Sodium Chloride (Normal Saline Flush) 3 ml QSHIFT PRN IV AFTER MEDS AND BLOOD DRAWS; Start 11/16/18 at 18:00 Sodium Chloride 1,000 ml @ 100 mls/hr Q10H IV Last administered on 11/18/18at 06:16; Start 11/16/18 at 17:56 Lactulose (Lactulose) 20 gm PRN Q12HR PRN PO CONSTIPATION; Start 11/16/18 at 18:00 Insulin Human Lispro (HumaLOG) 0-7 UNITS TIDWMEALS SQ Last administered on 11/17/18at 17:50; Start 11/17/18 at 08:00 Dextrose (Dextrose 50%-Water Syringe) 12.5 gm PRN Q15MIN PRN IV SEE COMMENTS; Start 11/16/18 at 18:00 Acetaminophen (Tylenol) 650 mg PRN Q6HRS PRN PO MILD - MODERATE PAIN Last administered on 11/17/18at 15:00; Start 11/16/18 at 18:00 Amlodipine Besylate (Norvasc) 10 mg DAILY PO ; Start 11/17/18 at 09:00 Aspirin (Robert Aspirin) 325 mg DAILY PO Last administered on 11/18/18at 08:18; Start 11/17/18 at 09:00 Atorvastatin Calcium (Lipitor) 80 mg QHS PO Last administered on 11/17/18at 21:03; Start 11/16/18 at 21:00 Carvedilol (Coreg) 12.5 mg BIDWMEALS PO Last administered on 11/17/18 08:10; Start 11/16/18 at 18:30 Chlorthalidone (Thalitone) 25 mg DAILY PO Last administered on 11/18/18at 08:18; Start 11/17/18 at 09:00 Clonidine HCl (Catapres) 0.1 mg PRN Q8HRS PRN PO HYPERTENSION; Start 11/16/18 at 18:00 Lactobacillus Rhamnosus (Culturelle) 1 cap BID PO Last administered on 11/18/18at 08:18; Start 11/16/18 at 21:00 Oxycodone/ Acetaminophen (Percocet 5/325) 1 tab PRN Q4HRS PRN PO SEVERE PAIN 7- 10 Last administered on 11/17/18at 19:33; Start 11/16/18 at 18:00 Pantoprazole Sodium (Protonix) 40 mg DAILYAC PO Last administered on 11/18/18 08:18; Start 11/17/18 at 07:30 Potassium Chloride (Klor-Con) 20 meq DAILYWBKFT PO Last administered on 11/17/18 08:09; Start 11/17/18 at 08:00 Trazodone HCl (Desyrel) 100 mg QHS PO Last administered on 11/17/18at 21:03; Start 11/16/18 at 21:00 Citalopram Hydrobromide (CeleXA) 40 mg DAILY PO Last administered on 11/17/18at 10:30; Start 11/17/18 at 09:00 Insulin Human Lispro (HumaLOG) 24 units TIDWMEALS SQ ; Start 11/17/18 at 08:00; Stop 11/17/18 at 08:00; Status DC Insulin Glargine (Lantus) 64 units QHS SQ Last administered on 11/16/18at 21:47; Start 11/16/18 at 21:00; Stop 11/16/18 at 23:31; Status DC Levothyroxine Sodium (Synthroid) 250 mcg DAILY06 PO Last administered on 11/18/18 06:16; Start 11/17/18 at 06:00 Lidocaine (Lidoderm) 1 patch DAILY TD Last administered on 11/18/18 08:22; Start 11/17/18 at 09:00 Losartan Potassium (Cozaar) 100 mg DAILY PO Last administered on 11/17/18at 10:30; Start 11/17/18 at 09:00 Non-Formulary Medication (Semaglutide (Ozempic)) 0.5 mg QFR SQ ; Start 11/23/18 at 16:00 Trazodone HCl (Desyrel) 50 mg QHS PO Last administered on 11/17/18at 21:03; Start 11/16/18 at 21:00 Vancomycin HCl 2 gm/Sodium Chloride 500 ml @ 250 mls/hr 1X ONCE IV Last administered on 11/16/18at 18:32; Start 11/16/18 at 19:00; Stop 11/16/18 at 20:59; Status DC Magnesium Sulfate 50 ml @ 25 mls/hr 1X ONCE IV Last administered on 11/16/18at 20:48; Start 11/16/18 at 18:15; Stop 11/16/18 at 20:14; Status DC Hydrochlorothiazide (Microzide) 12.5 mg DAILY PO Last administered on 11/18/18at 08:18; Start 11/17/18 at 09:00 Sodium Chloride 1,000 ml @ 1,000 mls/hr 1X ONCE IV Last administered on 11/16/18at 20:46; Start 11/16/18 at 20:45; Stop 11/16/18 at 21:44; Status DC Insulin Glargine (Lantus) 90 units QHS SQ Last administered on 11/17/18at 21:07; Start 11/17/18 at 21:00 Insulin Human Lispro (HumaLOG) 35 units TIDWMEALS SQ Last administered on 11/17/18at 17:51; Start 11/17/18 at 08:00 Piperacillin Sod/ Tazobactam Sod 3.375 gm/Sodium Chloride 50 ml @ 100 mls/hr Q6HRS IV Last administered on 11/18/18at 06:16; Start 11/17/18 at 12:00 Potassium Chloride (Klor-Con) 40 meq 1X ONCE PO Last administered on 11/18/18at 08:18; Start 11/18/18 at 08:30; Stop 11/18/18 at 08:31; Status DC Active Scripts Active Lidocaine 1 Each Adh..patch 1 Patch TD DAILY 14 Days Culturelle (Lactobacillus Rhamnosus Gg) 1 Each Cap.sprink 1 Cap PO BID 30 Days Chlorthalidone (Chlorthalidone) 25 Mg Tablet 25 Mg PO DAILY 14 Days Klor-Con M20 (Potassium Chloride) 20 Meq Tab.er.prt 20 Meq PO DAILYWBKFT 14 Days Percocet 5-325 Mg Tablet (Oxycodone/Acetaminophen) 1 Each Tablet 1 Tab PO PRN Q4HRS PRN 10 Days Tylenol (Acetaminophen) 325 Mg Tablet 650 Mg PO PRN Q6HRS PRN 30 Days Amlodipine Besylate 10 Mg Tablet 10 Mg PO DAILY 30 Days Catapres (Clonidine Hcl) 0.1 Mg Tablet 0.1 Mg PO PRN Q8HRS PRN 30 Days Carvedilol (Carvedilol) 12.5 Mg Tablet 12.5 Mg PO BIDWMEALS 30 Days Atorvastatin Calcium 40 Mg Tablet 80 Mg PO QHS 30 Days Amox Tr-K Clv 500-125 Mg Tab (Amoxicillin/Potassium Clav) 1 Each Tablet 1 Tab PO BID 14 Days Reported Tresiba Flextouch U-100 (Insulin Degludec) 100 Unit/1 Ml Insuln.pen 90 Unit SQ HS Novolog (Insulin Aspart) 100 Unit/1 Ml Cartridge 35 Unit SQ TIDAC Ozempic (Semaglutide) 0.25 Mg/0.2 Ml Pen.injctr 0.5 Mg SQ QFR Levothyroxine Sodium 125 Mcg Tablet 250 Mcg PO DAILYAC Trazodone Hcl 100 Mg Tablet 1 Tab PO QHS Trazodone Hcl 50 Mg Tablet 1 Tab PO QHS Protonix (Pantoprazole Sodium) 40 Mg Tablet.dr 1 Tab PO DAILY Aspirin 325 Mg Tablet 1 Tab PO DAILY Losartan-Hctz 100-12.5 Mg Tab (Losartan/Hydrochlorothiazide) 1 Each Tablet 1 Tab PO DAILY Escitalopram Oxalate 10 Mg Tablet 20 Mg PO DAILY Vitals/I & O Vital Sign - Last 24 Hours 11/17/18 11/17/18 11/17/18 11/17/18 09:00 10:00 10:30 11:00 Temp 98.6 98.6 Pulse 65 69 65 70 Resp 16 14 16 B/P (MAP) 111/58 (75) 105/59 (74) Pulse Ox 95 94 90 O2 Delivery Room Air Room Air Room Air 11/17/18 11/17/18 11/17/18 11/17/18 12:00 12:00 13:00 14:00 Pulse 60 62 63 Resp 14 20 21 B/P (MAP) 103/54 (70) 107/54 (71) 110/55 (73) Pulse Ox 89 95 95 O2 Delivery Room Air Bi-pap Nasal Cannula Nasal Cannula O2 Flow Rate 2.0 2.0 2.0 11/17/18 11/17/18 11/17/18 11/17/18 15:00 16:00 17:00 17:00 Pulse 61 59 59 Resp 16 18 B/P (MAP) 115/56 (75) 117/58 119/59 (79) Pulse Ox 93 93 O2 Delivery Nasal Cannula Nasal Cannula Nasal Cannula O2 Flow Rate 2.0 2.0 2.0 11/17/18 11/17/18 11/17/18 11/17/18 18:00 19:00 19:33 20:00 Temp 98.4 98.4 Pulse 57 64 60 Resp 21 20 18 23 B/P (MAP) 134/60 (84) 104/48 (66) 132/63 (86) Pulse Ox 95 97 97 99 O2 Delivery Nasal Cannula Nasal Cannula Nasal Cannula BiPAP/CPAP O2 Flow Rate 2.0 2.0 2.0 5.0 11/17/18 11/17/18 11/17/18 11/17/18 20:00 20:35 21:00 22:00 Pulse 56 59 Resp 24 23 18 B/P (MAP) 132/63 (86) 125/63 (83) Pulse Ox 99 98 98 O2 Delivery Bi-pap BiPAP/CPAP BiPAP/CPAP BiPAP/CPAP O2 Flow Rate 5.0 5.0 5.0 11/17/18 11/18/18 11/18/18 11/18/18 23:00 00:00 00:00 01:00 Temp 98.5 98.5 Pulse 59 61 58 Resp 24 20 19 B/P (MAP) 113/47 (69) 111/51 (71) 109/49 (69) Pulse Ox 95 91 93 O2 Delivery BiPAP/CPAP Bi-pap BiPAP/CPAP BiPAP/CPAP O2 Flow Rate 5.0 5.0 5.0 5.0 11/18/18 11/18/18 11/18/18 11/18/18 02:00 03:00 04:00 04:00 Temp 98.7 98.7 Pulse 60 57 56 Resp 22 26 27 B/P (MAP) 110/47 (68) 112/48 (69) 98/45 (62) Pulse Ox 93 94 92 O2 Delivery BiPAP/CPAP BiPAP/CPAP BiPAP/CPAP Bi-pap O2 Flow Rate 5.0 5.0 5.0 5.0 11/18/18 11/18/18 11/18/18 05:00 06:00 07:00 Pulse 54 55 54 Resp 21 18 16 B/P (MAP) 103/48 (66) 106/51 (69) 113/56 (75) Pulse Ox 93 94 95 O2 Delivery BiPAP/CPAP BiPAP/CPAP BiPAP/CPAP O2 Flow Rate 5.0 5.0 5.0 Intake and Output 11/17/18 11/17/18 11/18/18 14:59 22:59 06:59 Intake Total 2000 ml 350 ml 2494.5 ml Output Total 450 ml 1300 ml 1150 ml Balance 1550 ml -950 ml 1344.5 ml NIKITA DU MD November 18, 2018 08:47
--- NOTE | 2018-11-18 08:50 | PDOC ---
Infectious Disease Note Subjective Subjective c/o mid-back pain, better with use heating pad Also having some ongoing dysuria Denies F/C/S/aches/N/V ROS ROS per HPI Vital Sign Vital Signs Vital Signs Date Time Temp Pulse Resp B/P (MAP) Pulse Ox O2 Delivery O2 Flow Rate FiO2 11/18/18 07:00 54 16 113/56 (75) 95 BiPAP/CPAP 5.0 11/18/18 04:00 98.7 98.7 Physical Exam PHYSICAL EXAM GENERAL: Propped up in bed, alert, eating HEENT: Pupils equally round, reactive. Normal conjunctivae. Oral cavity/pharynx moist NECK: Supple. LUNGS: Clear to auscultation. HEART: S1 and S2, regular ABDOMEN: Obese, soft, nontender, BS active GENITOURINARY: PureWick EXTREMITIES: No gross edema or cyanosis SKIN: Warm without generalized rash. NEUROLOGIC: Alert and oriented x 3. PIV Labs Lab Laboratory Tests Test 11/17/18 12:44 11/17/18 17:46 11/17/18 21:06 11/18/18 03:30 Glucose (Fingerstick) 78 mg/dL (70-99) 180 mg/dL (70-99) 176 mg/dL (70-99) White Blood Count 8.3 x10^3/uL (4.0-11.0) Red Blood Count 3.76 x10^6/uL (3.50-5.40) Hemoglobin 11.0 g/dL (12.0-15.5) Hematocrit 33.2 % (36.0-47.0) Mean Corpuscular Volume 88 fL (79-100) Mean Corpuscular Hemoglobin 29 pg (25-35) Mean Corpuscular Hemoglobin Concent 33 g/dL (31-37) Red Cell Distribution Width 14.0 % (11.5-14.5) Platelet Count 110 x10^3/uL (140-400) Neutrophils (%) (Auto) 79 % (31-73) Lymphocytes (%) (Auto) 10 % (24-48) Monocytes (%) (Auto) 9 % (0-9) Eosinophils (%) (Auto) 2 % (0-3) Basophils (%) (Auto) 0 % (0-3) Neutrophils # (Auto) 6.6 x10^3uL (1.8-7.7) Lymphocytes # (Auto) 0.8 x10^3/uL (1.0-4.8) Monocytes # (Auto) 0.8 x10^3/uL (0.0-1.1) Eosinophils # (Auto) 0.1 x10^3/uL (0.0-0.7) Basophils # (Auto) 0.0 x10^3/uL (0.0-0.2) Sodium Level 142 mmol/L (136-145) Potassium Level 3.2 mmol/L (3.5-5.1) Chloride Level 105 mmol/L (98-107) Carbon Dioxide Level 27 mmol/L (21-32) Anion Gap 10 (6-14) Blood Urea Nitrogen 23 mg/dL (7-20) Creatinine 1.3 mg/dL (0.6-1.0) Estimated GFR (Cockcroft-Gault) 40.7 BUN/Creatinine Ratio 18 (6-20) Glucose Level 57 mg/dL (70-99) Calcium Level 9.3 mg/dL (8.5-10.1) Total Bilirubin 0.4 mg/dL (0.2-1.0) Aspartate Amino Transf (AST/SGOT) 61 U/L (15-37) Alanine Aminotransferase (ALT/SGPT) 58 U/L (14-59) Alkaline Phosphatase 110 U/L (46-116) Total Protein 7.0 g/dL (6.4-8.2) Albumin 2.3 g/dL (3.4-5.0) Albumin/Globulin Ratio 0.5 (1.0-1.7) Test 11/18/18 08:20 Glucose (Fingerstick) 49 mg/dL (70-99) Micro 11/16. BLOOD CULTURE Final GRAM NEGATIVE RODS SEEN IN 1 OF 4 BOTTLES; 2 SETS WERE DRAWN; RESULTS WERE CALLED TO DEISY BILLINGS IN ICU; 11/17/18; 0900 BY DARRON. THE BLOOD CULTURES HAVE BEEN SENT TO [facility] FOR FURTHER WORKUP. Objective Assessment GNR bacteremia with sepsis, POA -Recent clindamycin Complicated UTI, POA Leukocytosis, improved Allergy Ceftriaxone, Keflex, cipro, Levaquin all w/ rash. Tolerated Zosyn wo problem in past. Obstructive uropathy from nephrolithiasis s/p uretal stent placement and lithotripsy at [facility] 11/13. AMINTA, improved Morbid obesity Hypothyroidism h/o E. coli and Proteus bacteremia Plan Plan of Care Continue Zosyn Await GNR ID/susceptibilities UC pending Monitor WBC, temp and renal function Supportive care D/w Patient seen, examined, I agree with above A/P. IAIN JUNIOR APRN November 18, 2018 08:50 LAURA BRAND MD November 18, 2018 14:39
[2018-11-18] MEDS: ELECTROLYTE (ICU) PROTOCOL. MC SCH (09:00)
[2018-11-18] MEDS: ACETAMINOPHEN 325 MG TABLET. PO PRN (10:05)
[2018-11-18] MEDS: CITALOPRAM 20 MG TABLET. PO SCH (10:05)
--- NOTE | 2018-11-18 18:26 | NUR ---
Received report from Maulik SANTORO at ICU, medications and POC reviewed at 1614. The patient was transferred to [facility] at 1640.
[2018-11-18] MEDS: INSULIN GLARGINE 300 UNITS/3 ML INSULN.PEN. SQ SCH (21:00)
[2018-11-18] MEDS: traZODone 50 MG TABLET. PO SCH (21:00)
[2018-11-18] MEDS: traZODone 100 MG TABLET. PO SCH (21:41)
[2018-11-18] MEDS: ATORVASTATIN CALCIUM 40 MG TABLET. PO SCH (21:41)
[2018-11-18] MEDS: oxyCODONE/APAP 5/325 1 TAB TABLET PO PRN (21:50)
[2018-11-18] MEDS ORDERED: oxyCODONE/APAP 5/325 1 TAB TABLET ONE (23:56)
[2018-11-19 03:28] VITALS: BP 115/67
--- NOTE | 2018-11-19 03:51 | RAD ---
Ultrasound the abdomen complete. HISTORY: Obstructive uropathy, sepsis Ultrasound was used to evaluate the abdomen. Pancreas is poorly evaluated. Proximal aorta was not enlarged. Distal aorta was obscured. Mid aorta was not enlarged. Vena cava at the liver was unremarkable. Liver was normal in size and appearance without a focal lesion although incompletely evaluated. Common duct was normal measuring 6 mm. Patient had a previous cholecystectomy. Right kidney is 14.4 cm in length without hydronephrosis. Left kidney is 12.6 cm in length without hydronephrosis. Spleen was somewhat elongated and mildly enlarged. IMPRESSION: 1. Mild elongation of the spleen. 2. No hydronephrosis in the kidneys. 3. Previous cholecystectomy. Electronically signed by: Daniele Whiting MD (11/19/2018 3:49 AM) [facility]
--- NOTE | 2018-11-19 05:19 | NUR ---
Patient states she was told radiology would be here at 6PM to do ultrasound. I paged ultrasound, but no return call. Patient did not want to wait any longer and ate around 9PM. Ultrasound was still done, the tech stated that since patient does not have gallbladder, it should be fine. Patient c/o pain in ABD, pain medication was given per order. Patient slept throughout the night.
[2018-11-19] MEDS: IV NORMAL SALINE 1000ML BAG 1,000 ML IV SCH ×2 (05:56→17:53)
[2018-11-19] MEDS: PIPERACILLIN/TAZOBACTAM 3.375 GM in IV NORMAL SALINE 50ML 50 ML IV SCH ×5 (06:00→17:53)
[2018-11-19] MEDS: LEVOTHYROXINE 125 MCG TABLET PO SCH (06:13)
[2018-11-19 07:17] LABS: ALBUMIN 2.1 g/dL (3.4-5.0); ALBUMIN/GLOBULIN RATIO 0.5 (1.0-1.7); CREATININE 1.3 mg/dL (0.6-1.0); GFR 40.7; POTASSIUM 3.5 mmol/L (3.5-5.1); TOTAL BILIRUBIN 0.3 mg/dL (0.2-1.0); TOTAL PROTEIN 6.3 g/dL (6.4-8.2)
[2018-11-19 07:22] LABS: BASO % 0 % (0-3); EOS # 0.1 x10^3/uL (0.0-0.7); EOS % 3 % (0-3); HEMATOCRIT 31.4 % (36.0-47.0); HEMOGLOBIN 10.6 g/dL (12.0-15.5); LYMPH # 0.9 x10^3/uL (1.0-4.8); LYMPH % 18 % (24-48); MEAN CORPUSCULAR HEMOGLOBIN 30 pg (25-35); MEAN CORPUSCULAR HGB CONC 34 g/dL (31-37); MEAN CORPUSCULAR VOLUME 89 fL (79-100); MONO # 0.5 x10^3/uL (0.0-1.1); MONO % 10 % (0-9); NEUT # 3.2 x10^3uL (1.8-7.7); NEUT % 69 % (31-73); PLATELET COUNT 104 x10^3/uL (140-400); RED BLOOD COUNT 3.54 x10^6/uL (3.50-5.40); RED CELL DISTRIBUTION WIDTH 14.1 % (11.5-14.5); WHITE BLOOD COUNT 4.7 x10^3/uL (4.0-11.0)
[2018-11-19] MEDS: INSULIN LISPRO 300 UNITS/3 ML INSULN.PEN. SQ SCH ×6 (07:56→18:03)
[2018-11-19 08:00] VITALS: BP 133/61
[2018-11-19] MEDS: CARVEDILOL 12.5 MG TABLET. PO SCH ×2 (08:00→17:00)
[2018-11-19] MEDS: CITALOPRAM 20 MG TABLET. PO SCH (08:56)
[2018-11-19] MEDS: POTASSIUM CHLORIDE 20 MEQ TABLET.ER. PO SCH (08:57)
[2018-11-19] MEDS: amLODIPine BESYLATE 10 MG TABLET PO SCH (08:57)
[2018-11-19] MEDS: hydroCHLOROthiazide 12.5 MG CAPSULE PO SCH (08:57)
[2018-11-19] MEDS: LACTOBACILLUS RHAMNOSUS GG 1 CAPSULE. PO SCH ×2 (08:57→21:12)
[2018-11-19] MEDS: ASPIRIN 325 MG TABLET PO SCH (08:58)
[2018-11-19] MEDS: PANTOPRAZOLE 40 MG TABLET.DR. PO SCH (08:58)
[2018-11-19] MEDS: LOSARTAN POTASSIUM 50 MG TABLET. PO SCH (08:59)
[2018-11-19] MEDS: LIDOCAINE (700MG/PATCH) PATCH. TD SCH (09:00)
[2018-11-19] MEDS: ELECTROLYTE (ICU) PROTOCOL. MC SCH (09:00)
--- NOTE | 2018-11-19 09:04 | CONS ---
DATE OF CONSULTATION: 11/17/2018 INCOMPLETE DICTATION DICTATED BY: This is Yovani Ross, nurse practitioner, dictating for Dr. Chidi Brand, Infectious Disease. REFERRING PHYSICIAN: Dr. Katz. REASON FOR CONSULTATION: Urosepsis and positive blood cultures. HISTORY OF PRESENT ILLNESS: This patient is a 68-year-old female with a history of obstructive uropathy and a large right staghorn calculi, who underwent ureteral stent placement and lithotripsy on 11/13/2018 at [facility]. Post-procedure, she developed worsening right flank pain, chills and body aches. She has taken clindamycin without relief. She presented to the ER yesterday. She was found to have elevated white blood cell count of 16,000, lactic acid 3.9 and a creatinine of 2.0. She was afebrile with a heart rate of 91. Urinalysis showed wbc's too numerous to count, large leukocyte esterase and blood with occasional squamous epithelial cells and moderate bacteria. Urine culture is pending. Blood cultures returned with gram-negative rods seen in 1 of 4 bottles. She received a one-time dose of vancomycin and ceftriaxone with Benadryl in the ER and is currently not on any antibiotics at this time. ID has been asked to consult for further evaluation and antibiotic management. The patient states she is feeling more comfortable. Her chills and body aches have settled down. She denies fevers or sweats. She reports having painful urination prior to admission. She has a history of multiple urinary tract infections. She was hospitalized in 08/2018 with Proteus mirabilis UTI (resistant NTF and tetra). She developed a rash with ceftriaxone. She was treated with Zosyn and discharged on Augmentin. She denies nausea, vomiting or diarrhea. PAST MEDICAL HISTORY: E. coli bacteremia (resistant to Augmentin, ampicillin, cefazolin, cephalothin, piperacillin, intermediate cefuroxime; otherwise sensitive), Proteus mirabilis (resistant NTF and tetra) bacteremia. Multiple UTIs. Obstructive uropathy from nephrolithiasis, large right staghorn calculi. History of ovarian cancer, hypertension, hyperlipidemia, CVA, GERD, depression, anxiety, osteoarthritis, urinary incontinence, diabetes, hypothyroidism and also had morbid obesity. PAST SURGICAL HISTORY: Ureteral stent placement and lithotripsy, as mentioned above; cholecystectomy; bladder stimulation surgery and ovarian cancer surgery. FAMILY HISTORY: Positive for coronary artery disease and cirrhosis. SOCIAL HISTORY: The patient is and lives at home. Nonsmoker. ALLERGIES: CEFTRIAXONE AND CEPHALEXIN CAUSING RASH. CIPROFLOXACIN AND LEVOFLOXACIN CAUSING A RASH AND . DICTATION ENDS HERE. CHIDI BRAND MD DR: DENIS/crys JOB#: [id number] / [id number]
--- NOTE | 2018-11-19 09:15 | CONS ---
DATE OF CONSULTATION: 11/17/2018 DICTATED BY: This is Yovani Ross, nurse practitioner, dictating for Dr. Laura Brand, Infectious Disease. REFERRING PHYSICIAN: Dr. Katz. REASON FOR CONSULTATION: Urosepsis and positive blood cultures. HISTORY OF PRESENT ILLNESS: This patient is a 68-year-old female with a history of obstructive uropathy and a large right staghorn calculi, who underwent ureteral stent placement and lithotripsy on 11/13/2018 at [facility]. Post-procedure, she developed worsening right flank pain, chills and body aches. She has taken clindamycin without relief. She presented to the ER yesterday. She was found to have elevated white blood cell count of 16,000, lactic acid 3.9 and a creatinine of 2.0. She was afebrile with a heart rate of 91. Urinalysis showed wbc's too numerous to count, large leukocyte esterase and blood with occasional squamous epithelial cells and moderate bacteria. Urine culture is pending. Blood cultures returned with gram-negative rods seen in 1 of 4 bottles. She received a one-time dose of vancomycin and ceftriaxone with Benadryl in the ER and is currently not on any antibiotics at this time. ID has been asked to consult for further evaluation and antibiotic management. The patient states she is feeling more comfortable. Her chills and body aches have settled down. She denies fevers or sweats. She reports having painful urination prior to admission. She has a history of multiple urinary tract infections. She was hospitalized in 08/2018 with Proteus mirabilis UTI (resistant NTF and tetra). She developed a rash with ceftriaxone. She was treated with Zosyn and discharged on Augmentin. She denies nausea, vomiting or diarrhea. PAST MEDICAL HISTORY: E. coli bacteremia (resistant to Augmentin, ampicillin, cefazolin, cephalothin, piperacillin, intermediate cefuroxime; otherwise sensitive), Proteus mirabilis (resistant NTF and tetra) bacteremia. Multiple UTIs. Obstructive uropathy from nephrolithiasis, large right staghorn calculi. History of ovarian cancer, hypertension, hyperlipidemia, CVA, GERD, depression, anxiety, osteoarthritis, urinary incontinence, diabetes, hypothyroidism and also had morbid obesity. PAST SURGICAL HISTORY: Ureteral stent placement and lithotripsy, as mentioned above; cholecystectomy; bladder stimulation surgery and ovarian cancer surgery. FAMILY HISTORY: Positive for coronary artery disease and cirrhosis. SOCIAL HISTORY: The patient is and lives at home. Nonsmoker. ALLERGIES: CEFTRIAXONE AND CEPHALEXIN CAUSING RASH. CIPROFLOXACIN AND LEVOFLOXACIN CAUSING A RASH AND . MEDICATIONS: One-time dose of vancomycin, 11/16. One-time dose of ceftriaxone with Benadryl, 11/16. Probiotics. Other medications are available and have been reviewed on the AUG. REVIEW OF SYSTEMS: As per HPI, otherwise all other review of systems is negative. PHYSICAL EXAMINATION: VITAL SIGNS: Afebrile, blood pressure 122/63, heart rate 65, respiratory rate 15, pulse oximetry is 93% on room air. GENERAL: The patient is lying down, alert, on CPAP. No apparent distress. HEENT: Pupils equally round, reactive. Normal conjunctivae. Oral cavity: Pharynx pink, dry. NECK: Supple. LUNGS: Clear to auscultation. HEART: S1 and S2. ABDOMEN: Obese, soft, nontender. GENITOURINARY: PureWick in place. EXTREMITIES: No gross edema or cyanosis SKIN: Warm without generalized rash. NEUROLOGIC: Alert and oriented x 3. LABORATORY DATA: Today's WBC 9.1 from 16.0 on admission, hemoglobin 10.0, platelets 76,000 from 95,000 on admission. Creatinine 1.4 from 2.0 on admission, BUN 23, sodium 136 from 128 on admission, potassium 3.5, glucose 238. Lactic acid 2.1 from 3.9. Albumin 2.8, total bilirubin 0.8, AST 26, ALT 37. Urinalysis and cultures per HPI. Abdominal/pelvis CT showed interval placement of double-J ureter stent into the right collecting system. Interval decrease in size of right renal calculi, consistent with the patient's history of lithotripsy. Mild fullness of the right intrarenal collecting system seen. No hematoma or abdominal fluid collection noted. Chest x-ray showed no acute abnormality. IMPRESSION: Dose Zosyn. Await GNR identification and susceptibilities. Continue to monitor WBC count, temperature and renal function closely. Supportive care. Discussed with nursing. Thank you, Dr. Katz, for asking us to participate in this patient's care. If you have further questions or concerns, please call. LAURA BRAND MD DR: Emilie JOB#: [id number] / [id number]
[2018-11-19] MEDS: CHLORTHALIDONE 25 MG TABLET. PO SCH (09:16)
[2018-11-19] MEDS: HEPARIN for SUB-Q USE 5,000 UNIT/ML VIAL. SQ SCH ×2 (09:21→21:13)
--- NOTE | 2018-11-19 10:18 | PDOC2 ---
[facility] 11/19/18 1018: UROLOGY CONSULT Date of Consult Date of Consult DATE: 11/19/18 TIME: 10:11 Reason for Consult Reason for Consult: indwelling stent, UTI Identification/Chief Complaint Chief Complaint indwelling stent Source Source: Chart review, Patient History of Present Illness Reason for Visit: Patient is a 68 year old female who underwent lithotripsy on Monday of lasts week by Dr. Cazares at [facility]. She states it was an outpatient procedure and she went home and has been feeling more and more discomfort in her R flank and low abd and was having chills on the , which brought her into [facility] ER. Her urine was collected by straight cath in the ER was purulent and significant for infection. She has been receiving treatment for a UTI since then. Today she is doing well, with only minimal pain in her right flank. Her urine is much more clear and she also denies dysuria and nausea/vomiting. She has a purewick device in place for her chronic incontinence e of urine and she is happy with this device. She is in agreement with returning to Dr Cazares for further Urology care upon discharge. Past Medical History Cardiovascular: HTN, Hyperlipidemia, Other Pulmonary: Other CENTRAL NERVOUS SYSTEM: CVA GI: GERD Heme/Onc: Cancer Hepatobiliary: No pertinent hx Psych: Anxiety, Depression Musculoskeletal: Osteoarthritis Rheumatologic: No pertinent hx Infectious disease: No pertinent hx Renal/: No pertinent hx Endocrine: Diabetes, Hypothyroidism Past Surgical History Past Surgical History: Arthroscopy, Cholecystectomy, Hysterectomy Family History Family History: Heart Disease, Hypertension Social History ALCOHOL: none Drugs: None Lives: with Family Current Problem List Problems: (1) Urinary tract infection Current Medications Current Medications Current Medications Non-Formulary Medication (Semaglutide (Ozempic)) 0.5 mg QFR SQ ; Start 11/23/18 at 16:00 Oxycodone/ Acetaminophen (Percocet 5/325) 1 tab STK-MED ONCE .ROUTE ; Start 11/18/18 at 23:56; Stop 11/18/18 at 23:57; Status DC Oxycodone/ Acetaminophen (Percocet 5/325) 2 tab PRN Q4HRS PRN PO SEVERE PAIN 7- 10 Last administered on 11/19/18at 00:06; Start 11/19/18 at 23:33 Allergies Allergies: Coded Allergies: ceftriaxone (Verified Allergy, Intermediate, rash, 11/16/18) TOLERATES ZOSYN cephalexin (Verified Allergy, Intermediate, RASH, 11/16/18) levofloxacin (Verified Allergy, Intermediate, RASH, 11/16/18) morphine (Verified Allergy, Intermediate, tolerates Dilaudid & Percocet, 09/11/16) ciprofloxacin (Verified Adverse Reaction, Intermediate, TENDONITIS, ) lovastatin (Verified Adverse Reaction, Intermediate, CAUSES MUSCLE SPASMS, 09/11/16) ROS Review Of Systems: CONSTITUTIONAL: No fever or chills EYES: No recent changes SKIN: No rash or itching CARDIOVASCULAR: No chest pain, syncope, palpitations, or edema RESPIRATORY: No SOB or cough GASTROINTESTINAL: No nausea, vomiting or abdominal pain NEUROLOGICAL: No headaches or weakness ENDOCRINE: No cold or heat intolerance GENITOURINARY: No urgency or frequency of urination MUSCULOSKELETAL: No back pain or joint pain LYMPHATICS: No enlarged lymph nodes PSYCHIATRIC: No anxiety or depression Physical Exam Physical Exam: General: Pleasant, no acute distress, well groomed Eyes: conjunctiva anicteric, eyes full range of motion ENT: moist oral mucosa, normal dentition Neck: Trachea midline, no masses Respiratory: unlabored breathing, not using accessory muscles, Abdomen: + slight tenderness right side, none on the left. Soft, obese : Pure wick device in place draining austyn urine into suction device. Appears to be working well. Vitals VITALS Vital Signs Date Time Temp Pulse Resp B/P (MAP) Pulse Ox O2 Delivery O2 Flow Rate FiO2 11/19/18 08:59 50 133/61 11/19/18 08:00 98.3 18 88 Nasal Cannula 5.0 98.3 Labs Labs Laboratory Tests Test 11/17/18 12:44 11/17/18 17:46 11/17/18 21:06 11/18/18 03:30 Glucose (Fingerstick) 78 mg/dL (70-99) 180 mg/dL (70-99) 176 mg/dL (70-99) White Blood Count 8.3 x10^3/uL (4.0-11.0) Red Blood Count 3.76 x10^6/uL (3.50-5.40) Hemoglobin 11.0 g/dL (12.0-15.5) Hematocrit 33.2 % (36.0-47.0) Mean Corpuscular Volume 88 fL (79-100) Mean Corpuscular Hemoglobin 29 pg (25-35) Mean Corpuscular Hemoglobin Concent 33 g/dL (31-37) Red Cell Distribution Width 14.0 % (11.5-14.5) Platelet Count 110 x10^3/uL (140-400) Neutrophils (%) (Auto) 79 % (31-73) Lymphocytes (%) (Auto) 10 % (24-48) Monocytes (%) (Auto) 9 % (0-9) Eosinophils (%) (Auto) 2 % (0-3) Basophils (%) (Auto) 0 % (0-3) Neutrophils # (Auto) 6.6 x10^3uL (1.8-7.7) Lymphocytes # (Auto) 0.8 x10^3/uL (1.0-4.8) Monocytes # (Auto) 0.8 x10^3/uL (0.0-1.1) Eosinophils # (Auto) 0.1 x10^3/uL (0.0-0.7) Basophils # (Auto) 0.0 x10^3/uL (0.0-0.2) Sodium Level 142 mmol/L (136-145) Potassium Level 3.2 mmol/L (3.5-5.1) Chloride Level 105 mmol/L (98-107) Carbon Dioxide Level 27 mmol/L (21-32) Anion Gap 10 (6-14) Blood Urea Nitrogen 23 mg/dL (7-20) Creatinine 1.3 mg/dL (0.6-1.0) Estimated GFR (Cockcroft-Gault) 40.7 BUN/Creatinine Ratio 18 (6-20) Glucose Level 57 mg/dL (70-99) Calcium Level 9.3 mg/dL (8.5-10.1) Total Bilirubin 0.4 mg/dL (0.2-1.0) Aspartate Amino Transf (AST/SGOT) 61 U/L (15-37) Alanine Aminotransferase (ALT/SGPT) 58 U/L (14-59) Alkaline Phosphatase 110 U/L (46-116) Total Protein 7.0 g/dL (6.4-8.2) Albumin 2.3 g/dL (3.4-5.0) Albumin/Globulin Ratio 0.5 (1.0-1.7) Test 11/18/18 08:20 11/18/18 11:45 11/18/18 16:40 11/18/18 21:16 Glucose (Fingerstick) 49 mg/dL (70-99) 110 mg/dL (70-99) 99 mg/dL (70-99) 91 mg/dL (70-99) Test 11/19/18 06:06 11/19/18 07:36 White Blood Count 4.7 x10^3/uL (4.0-11.0) Red Blood Count 3.54 x10^6/uL (3.50-5.40) Hemoglobin 10.6 g/dL (12.0-15.5) Hematocrit 31.4 % (36.0-47.0) Mean Corpuscular Volume 89 fL (79-100) Mean Corpuscular Hemoglobin 30 pg (25-35) Mean Corpuscular Hemoglobin Concent 34 g/dL (31-37) Red Cell Distribution Width 14.1 % (11.5-14.5) Platelet Count 104 x10^3/uL (140-400) Neutrophils (%) (Auto) 69 % (31-73) Lymphocytes (%) (Auto) 18 % (24-48) Monocytes (%) (Auto) 10 % (0-9) Eosinophils (%) (Auto) 3 % (0-3) Basophils (%) (Auto) 0 % (0-3) Neutrophils # (Auto) 3.2 x10^3uL (1.8-7.7) Lymphocytes # (Auto) 0.9 x10^3/uL (1.0-4.8) Monocytes # (Auto) 0.5 x10^3/uL (0.0-1.1) Eosinophils # (Auto) 0.1 x10^3/uL (0.0-0.7) Basophils # (Auto) 0.0 x10^3/uL (0.0-0.2) Sodium Level 144 mmol/L (136-145) Potassium Level 3.5 mmol/L (3.5-5.1) Chloride Level 107 mmol/L (98-107) Carbon Dioxide Level 27 mmol/L (21-32) Anion Gap 10 (6-14) Blood Urea Nitrogen 17 mg/dL (7-20) Creatinine 1.3 mg/dL (0.6-1.0) Estimated GFR (Cockcroft-Gault) 40.7 BUN/Creatinine Ratio 13 (6-20) Glucose Level 166 mg/dL (70-99) Calcium Level 9.0 mg/dL (8.5-10.1) Total Bilirubin 0.3 mg/dL (0.2-1.0) Aspartate Amino Transf (AST/SGOT) 110 U/L (15-37) Alanine Aminotransferase (ALT/SGPT) 106 U/L (14-59) Alkaline Phosphatase 144 U/L (46-116) Total Protein 6.3 g/dL (6.4-8.2) Albumin 2.1 g/dL (3.4-5.0) Albumin/Globulin Ratio 0.5 (1.0-1.7) Glucose (Fingerstick) 135 mg/dL (70-99) Laboratory Tests Test 11/18/18 11:45 11/18/18 16:40 11/18/18 21:16 11/19/18 06:06 Glucose (Fingerstick) 110 mg/dL (70-99) 99 mg/dL (70-99) 91 mg/dL (70-99) White Blood Count 4.7 x10^3/uL (4.0-11.0) Red Blood Count 3.54 x10^6/uL (3.50-5.40) Hemoglobin 10.6 g/dL (12.0-15.5) Hematocrit 31.4 % (36.0-47.0) Mean Corpuscular Volume 89 fL (79-100) Mean Corpuscular Hemoglobin 30 pg (25-35) Mean Corpuscular Hemoglobin Concent 34 g/dL (31-37) Red Cell Distribution Width 14.1 % (11.5-14.5) Platelet Count 104 x10^3/uL (140-400) Neutrophils (%) (Auto) 69 % (31-73) Lymphocytes (%) (Auto) 18 % (24-48) Monocytes (%) (Auto) 10 % (0-9) Eosinophils (%) (Auto) 3 % (0-3) Basophils (%) (Auto) 0 % (0-3) Neutrophils # (Auto) 3.2 x10^3uL (1.8-7.7) Lymphocytes # (Auto) 0.9 x10^3/uL (1.0-4.8) Monocytes # (Auto) 0.5 x10^3/uL (0.0-1.1) Eosinophils # (Auto) 0.1 x10^3/uL (0.0-0.7) Basophils # (Auto) 0.0 x10^3/uL (0.0-0.2) Sodium Level 144 mmol/L (136-145) Potassium Level 3.5 mmol/L (3.5-5.1) Chloride Level 107 mmol/L (98-107) Carbon Dioxide Level 27 mmol/L (21-32) Anion Gap 10 (6-14) Blood Urea Nitrogen 17 mg/dL (7-20) Creatinine 1.3 mg/dL (0.6-1.0) Estimated GFR (Cockcroft-Gault) 40.7 BUN/Creatinine Ratio 13 (6-20) Glucose Level 166 mg/dL (70-99) Calcium Level 9.0 mg/dL (8.5-10.1) Total Bilirubin 0.3 mg/dL (0.2-1.0) Aspartate Amino Transf (AST/SGOT) 110 U/L (15-37) Alanine Aminotransferase (ALT/SGPT) 106 U/L (14-59) Alkaline Phosphatase 144 U/L (46-116) Total Protein 6.3 g/dL (6.4-8.2) Albumin 2.1 g/dL (3.4-5.0) Albumin/Globulin Ratio 0.5 (1.0-1.7) Test 11/19/18 07:36 Glucose (Fingerstick) 135 mg/dL (70-99) Images Images IMPRESSION: Interval placement of a double-J ureteral stent into the right collecting system. There has been interval decrease in size of the right renal calculi consistent with the patient's history of lithotripsy. Mild fullness of the right intrarenal collecting system is seen. No hematoma or abnormal fluid collection is noted. Assessment/Plan Assessment/Plan UTI with indwelling stent. We will treat her UTI and coordinate with Dr. Cazares , who is her original urologist/surgeon so she can follow up with him. Continue pure wick device, since patient incontinent. MUMTAZ QUISPE MD 11/19/18 1341: UROLOGY CONSULT Assessment/Plan Assessment/Plan I have seen pt and reviewed chart. I agree with current plan of care. [facility] November 19, 2018 10:18 MUMTAZ QUISPE MD November 19, 2018 13:41
--- NOTE | 2018-11-19 10:47 | PDOC ---
PROGRESS NOTES Chief Complaint Chief Complaint GNR UTI GNR bacteremia 1 out of 4 bottles Obesity, BMI 52 History staghorn calculi status post lithotripsy [place] I, resolved, VMN Normocytic anemia History of Present Illness History of Present Illness She was transferred out of ICU meeting sepsis criteria ID on board, GNR bacteremia and identification sensitivity still pending No white count, no fever, nontoxic-appearing Still has a Mishra catheter [facility], stayed there for 3 weeks Plan: add PTOT Creatinine is much better 1.3 today from 2 on admission Awaiting identification sensitivities before discharging on by mouth antibiotics DC Mishra today Vitals Vitals Vital Signs Date Time Temp Pulse Resp B/P (MAP) Pulse Ox O2 Delivery O2 Flow Rate FiO2 11/19/18 08:59 50 133/61 11/19/18 08:00 98.3 18 88 Nasal Cannula 5.0 98.3 Physical Exam Physical Exam GENERAL: Propped up in bed, alert, eating HEENT: Pupils equally round, reactive. Normal conjunctivae. Oral cavity/pharynx moist NECK: Supple. LUNGS: Clear to auscultation. HEART: S1 and S2, regular ABDOMEN: Obese, soft, nontender, BS active GENITOURINARY: PureWick EXTREMITIES: No gross edema or cyanosis SKIN: Warm without generalized rash. NEUROLOGIC: Alert and oriented x 3. PIV General: Alert, Oriented X3, Cooperative, mild distress Heart: Regular rate, Normal S1, Normal S2, No murmurs Lungs: Clear Abdomen: Normal bowel sounds, Soft Extremities: No clubbing, No cyanosis, No edema Skin: No significant lesion Labs LABS Laboratory Tests Test 11/18/18 11:45 11/18/18 16:40 11/18/18 21:16 11/19/18 06:06 Glucose (Fingerstick) 110 mg/dL (70-99) 99 mg/dL (70-99) 91 mg/dL (70-99) White Blood Count 4.7 x10^3/uL (4.0-11.0) Red Blood Count 3.54 x10^6/uL (3.50-5.40) Hemoglobin 10.6 g/dL (12.0-15.5) Hematocrit 31.4 % (36.0-47.0) Mean Corpuscular Volume 89 fL (79-100) Mean Corpuscular Hemoglobin 30 pg (25-35) Mean Corpuscular Hemoglobin Concent 34 g/dL (31-37) Red Cell Distribution Width 14.1 % (11.5-14.5) Platelet Count 104 x10^3/uL (140-400) Neutrophils (%) (Auto) 69 % (31-73) Lymphocytes (%) (Auto) 18 % (24-48) Monocytes (%) (Auto) 10 % (0-9) Eosinophils (%) (Auto) 3 % (0-3) Basophils (%) (Auto) 0 % (0-3) Neutrophils # (Auto) 3.2 x10^3uL (1.8-7.7) Lymphocytes # (Auto) 0.9 x10^3/uL (1.0-4.8) Monocytes # (Auto) 0.5 x10^3/uL (0.0-1.1) Eosinophils # (Auto) 0.1 x10^3/uL (0.0-0.7) Basophils # (Auto) 0.0 x10^3/uL (0.0-0.2) Sodium Level 144 mmol/L (136-145) Potassium Level 3.5 mmol/L (3.5-5.1) Chloride Level 107 mmol/L (98-107) Carbon Dioxide Level 27 mmol/L (21-32) Anion Gap 10 (6-14) Blood Urea Nitrogen 17 mg/dL (7-20) Creatinine 1.3 mg/dL (0.6-1.0) Estimated GFR (Cockcroft-Gault) 40.7 BUN/Creatinine Ratio 13 (6-20) Glucose Level 166 mg/dL (70-99) Calcium Level 9.0 mg/dL (8.5-10.1) Total Bilirubin 0.3 mg/dL (0.2-1.0) Aspartate Amino Transf (AST/SGOT) 110 U/L (15-37) Alanine Aminotransferase (ALT/SGPT) 106 U/L (14-59) Alkaline Phosphatase 144 U/L (46-116) Total Protein 6.3 g/dL (6.4-8.2) Albumin 2.1 g/dL (3.4-5.0) Albumin/Globulin Ratio 0.5 (1.0-1.7) Test 11/19/18 07:36 Glucose (Fingerstick) 135 mg/dL (70-99) Review of Systems Review of Systems A 14 point ROS was completed with the following noted as positive: Other systems reviewed and negative. \CONSTITUTIONAL: No fever or chills EYES: No recent changes SKIN: No rash or itching CARDIOVASCULAR: No chest pain, syncope, palpitations, or edema RESPIRATORY: No SOB or cough GASTROINTESTINAL: No nausea, vomiting or abdominal pain NEUROLOGICAL: No headaches or weakness ENDOCRINE: No cold or heat intolerance GENITOURINARY: No urgency or frequency of urination MUSCULOSKELETAL: No back pain or joint pain LYMPHATICS: No enlarged lymph nodes PSYCHIATRIC: No anxiety or depression Assessment and Plan Assessmemt and Plan Problems Medical Problems: (1) Sepsis Status: Acute (2) Urinary tract infection Status: Acute Comment Review of Relevant I have reviewed the following items jeffrey (where applicable) has been applied. Labs Laboratory Tests Test 11/17/18 12:44 11/17/18 17:46 11/17/18 21:06 11/18/18 03:30 Glucose (Fingerstick) 78 mg/dL (70-99) 180 mg/dL (70-99) 176 mg/dL (70-99) White Blood Count 8.3 x10^3/uL (4.0-11.0) Red Blood Count 3.76 x10^6/uL (3.50-5.40) Hemoglobin 11.0 g/dL (12.0-15.5) Hematocrit 33.2 % (36.0-47.0) Mean Corpuscular Volume 88 fL (79-100) Mean Corpuscular Hemoglobin 29 pg (25-35) Mean Corpuscular Hemoglobin Concent 33 g/dL (31-37) Red Cell Distribution Width 14.0 % (11.5-14.5) Platelet Count 110 x10^3/uL (140-400) Neutrophils (%) (Auto) 79 % (31-73) Lymphocytes (%) (Auto) 10 % (24-48) Monocytes (%) (Auto) 9 % (0-9) Eosinophils (%) (Auto) 2 % (0-3) Basophils (%) (Auto) 0 % (0-3) Neutrophils # (Auto) 6.6 x10^3uL (1.8-7.7) Lymphocytes # (Auto) 0.8 x10^3/uL (1.0-4.8) Monocytes # (Auto) 0.8 x10^3/uL (0.0-1.1) Eosinophils # (Auto) 0.1 x10^3/uL (0.0-0.7) Basophils # (Auto) 0.0 x10^3/uL (0.0-0.2) Sodium Level 142 mmol/L (136-145) Potassium Level 3.2 mmol/L (3.5-5.1) Chloride Level 105 mmol/L (98-107) Carbon Dioxide Level 27 mmol/L (21-32) Anion Gap 10 (6-14) Blood Urea Nitrogen 23 mg/dL (7-20) Creatinine 1.3 mg/dL (0.6-1.0) Estimated GFR (Cockcroft-Gault) 40.7 BUN/Creatinine Ratio 18 (6-20) Glucose Level 57 mg/dL (70-99) Calcium Level 9.3 mg/dL (8.5-10.1) Total Bilirubin 0.4 mg/dL (0.2-1.0) Aspartate Amino Transf (AST/SGOT) 61 U/L (15-37) Alanine Aminotransferase (ALT/SGPT) 58 U/L (14-59) Alkaline Phosphatase 110 U/L (46-116) Total Protein 7.0 g/dL (6.4-8.2) Albumin 2.3 g/dL (3.4-5.0) Albumin/Globulin Ratio 0.5 (1.0-1.7) Test 11/18/18 08:20 11/18/18 11:45 11/18/18 16:40 11/18/18 21:16 Glucose (Fingerstick) 49 mg/dL (70-99) 110 mg/dL (70-99) 99 mg/dL (70-99) 91 mg/dL (70-99) Test 11/19/18 06:06 11/19/18 07:36 White Blood Count 4.7 x10^3/uL (4.0-11.0) Red Blood Count 3.54 x10^6/uL (3.50-5.40) Hemoglobin 10.6 g/dL (12.0-15.5) Hematocrit 31.4 % (36.0-47.0) Mean Corpuscular Volume 89 fL (79-100) Mean Corpuscular Hemoglobin 30 pg (25-35) Mean Corpuscular Hemoglobin Concent 34 g/dL (31-37) Red Cell Distribution Width 14.1 % (11.5-14.5) Platelet Count 104 x10^3/uL (140-400) Neutrophils (%) (Auto) 69 % (31-73) Lymphocytes (%) (Auto) 18 % (24-48) Monocytes (%) (Auto) 10 % (0-9) Eosinophils (%) (Auto) 3 % (0-3) Basophils (%) (Auto) 0 % (0-3) Neutrophils # (Auto) 3.2 x10^3uL (1.8-7.7) Lymphocytes # (Auto) 0.9 x10^3/uL (1.0-4.8) Monocytes # (Auto) 0.5 x10^3/uL (0.0-1.1) Eosinophils # (Auto) 0.1 x10^3/uL (0.0-0.7) Basophils # (Auto) 0.0 x10^3/uL (0.0-0.2) Sodium Level 144 mmol/L (136-145) Potassium Level 3.5 mmol/L (3.5-5.1) Chloride Level 107 mmol/L (98-107) Carbon Dioxide Level 27 mmol/L (21-32) Anion Gap 10 (6-14) Blood Urea Nitrogen 17 mg/dL (7-20) Creatinine 1.3 mg/dL (0.6-1.0) Estimated GFR (Cockcroft-Gault) 40.7 BUN/Creatinine Ratio 13 (6-20) Glucose Level 166 mg/dL (70-99) Calcium Level 9.0 mg/dL (8.5-10.1) Total Bilirubin 0.3 mg/dL (0.2-1.0) Aspartate Amino Transf (AST/SGOT) 110 U/L (15-37) Alanine Aminotransferase (ALT/SGPT) 106 U/L (14-59) Alkaline Phosphatase 144 U/L (46-116) Total Protein 6.3 g/dL (6.4-8.2) Albumin 2.1 g/dL (3.4-5.0) Albumin/Globulin Ratio 0.5 (1.0-1.7) Glucose (Fingerstick) 135 mg/dL (70-99) Laboratory Tests Test 11/18/18 11:45 11/18/18 16:40 11/18/18 21:16 11/19/18 06:06 Glucose (Fingerstick) 110 mg/dL (70-99) 99 mg/dL (70-99) 91 mg/dL (70-99) White Blood Count 4.7 x10^3/uL (4.0-11.0) Red Blood Count 3.54 x10^6/uL (3.50-5.40) Hemoglobin 10.6 g/dL (12.0-15.5) Hematocrit 31.4 % (36.0-47.0) Mean Corpuscular Volume 89 fL (79-100) Mean Corpuscular Hemoglobin 30 pg (25-35) Mean Corpuscular Hemoglobin Concent 34 g/dL (31-37) Red Cell Distribution Width 14.1 % (11.5-14.5) Platelet Count 104 x10^3/uL (140-400) Neutrophils (%) (Auto) 69 % (31-73) Lymphocytes (%) (Auto) 18 % (24-48) Monocytes (%) (Auto) 10 % (0-9) Eosinophils (%) (Auto) 3 % (0-3) Basophils (%) (Auto) 0 % (0-3) Neutrophils # (Auto) 3.2 x10^3uL (1.8-7.7) Lymphocytes # (Auto) 0.9 x10^3/uL (1.0-4.8) Monocytes # (Auto) 0.5 x10^3/uL (0.0-1.1) Eosinophils # (Auto) 0.1 x10^3/uL (0.0-0.7) Basophils # (Auto) 0.0 x10^3/uL (0.0-0.2) Sodium Level 144 mmol/L (136-145) Potassium Level 3.5 mmol/L (3.5-5.1) Chloride Level 107 mmol/L (98-107) Carbon Dioxide Level 27 mmol/L (21-32) Anion Gap 10 (6-14) Blood Urea Nitrogen 17 mg/dL (7-20) Creatinine 1.3 mg/dL (0.6-1.0) Estimated GFR (Cockcroft-Gault) 40.7 BUN/Creatinine Ratio 13 (6-20) Glucose Level 166 mg/dL (70-99) Calcium Level 9.0 mg/dL (8.5-10.1) Total Bilirubin 0.3 mg/dL (0.2-1.0) Aspartate Amino Transf (AST/SGOT) 110 U/L (15-37) Alanine Aminotransferase (ALT/SGPT) 106 U/L (14-59) Alkaline Phosphatase 144 U/L (46-116) Total Protein 6.3 g/dL (6.4-8.2) Albumin 2.1 g/dL (3.4-5.0) Albumin/Globulin Ratio 0.5 (1.0-1.7) Test 11/19/18 07:36 Glucose (Fingerstick) 135 mg/dL (70-99) Microbiology 11/16/18 Blood Culture - Preliminary, Resulted NO GROWTH AFTER 2 DAYS 11/16/18 Urine Culture - Preliminary, Resulted 11/16/18 Urine Culture Result 1 (QUIQUE) - Preliminary, Resulted Medications Current Medications Sodium Chloride 1,000 ml @ 1,000 mls/hr 1X ONCE IV Last administered on 11/16/18at 17:07; Start 11/16/18 at 17:00; Stop 11/16/18 at 17:59; Status DC Ceftriaxone Sodium (Rocephin) 1 gm 1X ONCE IVP Last administered on 11/16/18at 17:30; Start 11/16/18 at 18:00; Stop 11/16/18 at 18:01; Status DC Diphenhydramine HCl (Benadryl) 12.5 mg 1X ONCE IVP Last administered on 11/16/18at 17:30; Start 11/16/18 at 18:00; Stop 11/16/18 at 18:01; Status DC Sodium Chloride 1,000 ml @ 1,000 mls/hr 1X ONCE IV Last administered on 11/16/18at 17:57; Start 11/16/18 at 17:45; Stop 11/16/18 at 18:44; Status DC Potassium Chloride (Klor-Con) 20 meq 1X ONCE PO Last administered on 11/16/18at 17:56; Start 11/16/18 at 17:45; Stop 11/16/18 at 17:47; Status DC Insulin Human Regular (HumuLIN R VIAL) 6 unit 1X ONCE IV Last administered on 11/16/18at 17:58; Start 11/16/18 at 17:45; Stop 11/16/18 at 17:47; Status DC Insulin Human Lispro (HumaLOG) 0-7 UNITS TIDWMEALS SQ ; Start 11/17/18 at 08:00; Stop 11/17/18 at 08:00; Status DC Dextrose (Dextrose 50%-Water Syringe) 12.5 gm PRN Q15MIN PRN IV SEE COMMENTS; Start 11/16/18 at 18:15; Stop 11/17/18 at 11:17; Status DC Lorazepam (Ativan Inj) 0.5 mg PRN Q6HRS PRN IV ANXIETY / AGITATION; Start 11/16/18 at 18:00 Ondansetron HCl (Zofran) 4 mg PRN Q6HRS PRN IV NAUSEA/VOMITING; Start 11/16/18 at 18:00 Zolpidem Tartrate (Ambien) 5 mg PRN QHS PRN PO INSOMNIA, MAY REPEAT IN 1HR; Start 11/16/18 at 18:00 Info (Icu Electrolyte Protocol) 1 ea DAILY MC ; Start 11/17/18 at 09:00 Heparin Sodium (Porcine) (Heparin Sodium) 5,000 unit Q12HR SQ Last administered on 11/19/18at 09:21; Start 11/16/18 at 19:00 Sodium Chloride (Normal Saline Flush) 3 ml QSHIFT PRN IV AFTER MEDS AND BLOOD DRAWS; Start 11/16/18 at 18:00 Sodium Chloride 1,000 ml @ 100 mls/hr Q10H IV Last administered on 11/19/18at 05:56; Start 11/16/18 at 17:56 Lactulose (Lactulose) 20 gm PRN Q12HR PRN PO CONSTIPATION; Start 11/16/18 at 18:00 Insulin Human Lispro (HumaLOG) 0-7 UNITS TIDWMEALS SQ Last administered on 11/17/18at 17:50; Start 11/17/18 at 08:00 Dextrose (Dextrose 50%-Water Syringe) 12.5 gm PRN Q15MIN PRN IV SEE COMMENTS; Start 11/16/18 at 18:00 Acetaminophen (Tylenol) 650 mg PRN Q6HRS PRN PO MILD - MODERATE PAIN Last administered on 11/18/18 10:05; Start 11/16/18 at 18:00 Amlodipine Besylate (Norvasc) 10 mg DAILY PO Last administered on 11/19/18 08:57; Start 11/17/18 at 09:00 Aspirin (Robert Aspirin) 325 mg DAILY PO Last administered on 11/19/18 08:58; Start 11/17/18 at 09:00 Atorvastatin Calcium (Lipitor) 80 mg QHS PO Last administered on 11/18/18 21:41; Start 11/16/18 at 21:00 Carvedilol (Coreg) 12.5 mg BIDWMEALS PO Last administered on 11/18/18 17:35; Start 11/16/18 at 18:30 Chlorthalidone (Thalitone) 25 mg DAILY PO Last administered on 11/19/18 09:16; Start 11/17/18 at 09:00 Clonidine HCl (Catapres) 0.1 mg PRN Q8HRS PRN PO HYPERTENSION; Start 11/16/18 at 18:00 Lactobacillus Rhamnosus (Culturelle) 1 cap BID PO Last administered on 11/19/18 08:57; Start 11/16/18 at 21:00 Oxycodone/ Acetaminophen (Percocet 5/325) 1 tab PRN Q4HRS PRN PO SEVERE PAIN 7- 10 Last administered on 11/18/18 21:50; Start 11/16/18 at 18:00; Stop 11/18/18 at 23:34; Status DC Pantoprazole Sodium (Protonix) 40 mg DAILYAC PO Last administered on 11/19/18 08:58; Start 11/17/18 at 07:30 Potassium Chloride (Klor-Con) 20 meq DAILYWBKFT PO Last administered on 11/19/18 08:57; Start 11/17/18 at 08:00 Trazodone HCl (Desyrel) 100 mg QHS PO Last administered on 11/18/18 21:41; Start 11/16/18 at 21:00 Citalopram Hydrobromide (CeleXA) 40 mg DAILY PO Last administered on 11/19/18 08:56; Start 11/17/18 at 09:00 Insulin Human Lispro (HumaLOG) 24 units TIDWMEALS SQ ; Start 11/17/18 at 08:00; Stop 11/17/18 at 08:00; Status DC Insulin Glargine (Lantus) 64 units QHS SQ Last administered on 11/16/18at 21:47; Start 11/16/18 at 21:00; Stop 11/16/18 at 23:31; Status DC Levothyroxine Sodium (Synthroid) 250 mcg DAILY06 PO Last administered on 11/19/18at 06:13; Start 11/17/18 at 06:00 Lidocaine (Lidoderm) 1 patch DAILY TD Last administered on 11/18/18at 08:22; Start 11/17/18 at 09:00 Losartan Potassium (Cozaar) 100 mg DAILY PO Last administered on 11/19/18at 08:59; Start 11/17/18 at 09:00 Non-Formulary Medication (Semaglutide (Ozempic)) 0.5 mg QFR SQ ; Start 11/23/18 at 16:00 Trazodone HCl (Desyrel) 50 mg QHS PO Last administered on 11/18/18at 21:00; Start 11/16/18 at 21:00 Vancomycin HCl 2 gm/Sodium Chloride 500 ml @ 250 mls/hr 1X ONCE IV Last administered on 11/16/18at 18:32; Start 11/16/18 at 19:00; Stop 11/16/18 at 20:59; Status DC Magnesium Sulfate 50 ml @ 25 mls/hr 1X ONCE IV Last administered on 11/16/18at 20:48; Start 11/16/18 at 18:15; Stop 11/16/18 at 20:14; Status DC Hydrochlorothiazide (Microzide) 12.5 mg DAILY PO Last administered on 11/19/18at 08:57; Start 11/17/18 at 09:00 Sodium Chloride 1,000 ml @ 1,000 mls/hr 1X ONCE IV Last administered on 11/16/18at 20:46; Start 11/16/18 at 20:45; Stop 11/16/18 at 21:44; Status DC Insulin Glargine (Lantus) 90 units QHS SQ Last administered on 11/17/18at 21:07; Start 11/17/18 at 21:00 Insulin Human Lispro (HumaLOG) 35 units TIDWMEALS SQ Last administered on 11/19/18at 09:03; Start 11/17/18 at 08:00 Piperacillin Sod/ Tazobactam Sod 3.375 gm/Sodium Chloride 50 ml @ 100 mls/hr Q6HRS IV Last administered on 11/19/18at 06:00; Start 11/17/18 at 12:00 Potassium Chloride (Klor-Con) 40 meq 1X ONCE PO Last administered on 11/18/18at 08:18; Start 11/18/18 at 08:30; Stop 11/18/18 at 08:31; Status DC Potassium Chloride (Klor-Con) 40 meq 1X ONCE PO ; Start 11/18/18 at 10:00; Stop 11/18/18 at 10:01; Status DC Oxycodone/ Acetaminophen (Percocet 5/325) 2 tab PRN Q4HRS PRN PO SEVERE PAIN 7- 10 Last administered on 11/19/18at 00:06; Start 11/19/18 at 23:33 Oxycodone/ Acetaminophen (Percocet 5/325) 1 tab STK-MED ONCE .ROUTE ; Start 11/18/18 at 23:56; Stop 11/18/18 at 23:57; Status DC Active Scripts Active Lidocaine 1 Each Adh..patch 1 Patch TD DAILY 14 Days Culturelle (Lactobacillus Rhamnosus Gg) 1 Each Cap.sprink 1 Cap PO BID 30 Days Chlorthalidone (Chlorthalidone) 25 Mg Tablet 25 Mg PO DAILY 14 Days Klor-Con M20 (Potassium Chloride) 20 Meq Tab.er.prt 20 Meq PO DAILYWBKFT 14 Days Percocet 5-325 Mg Tablet (Oxycodone/Acetaminophen) 1 Each Tablet 1 Tab PO PRN Q4HRS PRN 10 Days Tylenol (Acetaminophen) 325 Mg Tablet 650 Mg PO PRN Q6HRS PRN 30 Days Amlodipine Besylate 10 Mg Tablet 10 Mg PO DAILY 30 Days Catapres (Clonidine Hcl) 0.1 Mg Tablet 0.1 Mg PO PRN Q8HRS PRN 30 Days Carvedilol (Carvedilol) 12.5 Mg Tablet 12.5 Mg PO BIDWMEALS 30 Days Atorvastatin Calcium 40 Mg Tablet 80 Mg PO QHS 30 Days Amox Tr-K Clv 500-125 Mg Tab (Amoxicillin/Potassium Clav) 1 Each Tablet 1 Tab PO BID 14 Days Reported Tresiba Flextouch U-100 (Insulin Degludec) 100 Unit/1 Ml Insuln.pen 90 Unit SQ HS Novolog (Insulin Aspart) 100 Unit/1 Ml Cartridge 35 Unit SQ TIDAC Ozempic (Semaglutide) 0.25 Mg/0.2 Ml Pen.injctr 0.5 Mg SQ QFR Levothyroxine Sodium 125 Mcg Tablet 250 Mcg PO DAILYAC Trazodone Hcl 100 Mg Tablet 1 Tab PO QHS Trazodone Hcl 50 Mg Tablet 1 Tab PO QHS Protonix (Pantoprazole Sodium) 40 Mg Tablet.dr 1 Tab PO DAILY Aspirin 325 Mg Tablet 1 Tab PO DAILY Losartan-Hctz 100-12.5 Mg Tab (Losartan/Hydrochlorothiazide) 1 Each Tablet 1 Tab PO DAILY Escitalopram Oxalate 10 Mg Tablet 20 Mg PO DAILY Vitals/I & O Vital Sign - Last 24 Hours 11/18/18 11/18/18 11/18/18 11/18/18 11:00 12:00 16:00 16:53 Temp 98.5 97.8 98.5 97.8 Pulse 58 95 58 Resp 18 18 20 B/P (MAP) 131/60 (83) 156/61 (92) 171/76 (107) Pulse Ox 97 95 98 O2 Delivery Nasal Cannula Nasal Cannula Nasal Cannula Nasal Cannula O2 Flow Rate 2.0 2.0 2.0 2.0 11/18/18 11/18/18 11/18/18 11/18/18 17:35 20:04 21:50 23:36 Temp 98.1 98.1 Pulse 59 57 61 Resp 17 20 B/P (MAP) 151/80 153/51 (85) 159/65 (96) Pulse Ox 94 92 O2 Delivery BiPAP/CPAP Nasal Cannula BiPAP/CPAP O2 Flow Rate 5.0 2.0 5.0 11/19/18 11/19/18 11/19/18 11/19/18 00:06 01:06 03:28 08:00 Temp 97.7 97.7 Pulse 60 50 Resp 17 18 B/P (MAP) 115/67 (83) Pulse Ox 94 O2 Delivery BiPAP/CPAP BiPAP/CPAP BiPAP/CPAP O2 Flow Rate 5.0 11/19/18 11/19/18 11/19/18 11/19/18 08:00 08:00 08:57 08:59 Temp 98.3 98.3 Pulse 50 50 50 Resp 18 B/P (MAP) 133/61 (85) 133/61 133/61 Pulse Ox 88 O2 Delivery Room Air Nasal Cannula O2 Flow Rate 5.0 Intake and Output 11/18/18 11/18/18 11/19/18 14:59 22:59 06:59 Intake Total 0 ml 450 ml Output Total 450 ml 1000 ml 2000 ml Balance -450 ml -1000 ml -1550 ml JARED HOWE MD November 19, 2018 10:47
[2018-11-19 12:00] VITALS: BP 137/72
--- NOTE | 2018-11-19 12:46 | PDOC ---
Infectious Disease Note Subjective Subjective c/o mid-back pain, better with use heating pad Also having some ongoing dysuria Denies F/C/S/aches/N/V Vital Sign Vital Signs Vital Signs Date Time Temp Pulse Resp B/P (MAP) Pulse Ox O2 Delivery O2 Flow Rate FiO2 11/19/18 12:00 97.9 55 18 137/72 (93) 88 Room Air 5.0 97.9 Physical Exam PHYSICAL EXAM GENERAL: Propped up in bed, alert, eating HEENT: Pupils equally round, reactive. Normal conjunctivae. Oral cavity/pharynx moist NECK: Supple. LUNGS: Clear to auscultation. HEART: S1 and S2, regular ABDOMEN: Obese, soft, nontender, BS active GENITOURINARY: PureWick EXTREMITIES: No gross edema or cyanosis SKIN: Warm without generalized rash. NEUROLOGIC: Alert and oriented x 3. PIV Labs Lab Laboratory Tests Test 11/18/18 16:40 11/18/18 21:16 11/19/18 06:06 11/19/18 07:36 Glucose (Fingerstick) 99 mg/dL (70-99) 91 mg/dL (70-99) 135 mg/dL (70-99) White Blood Count 4.7 x10^3/uL (4.0-11.0) Red Blood Count 3.54 x10^6/uL (3.50-5.40) Hemoglobin 10.6 g/dL (12.0-15.5) Hematocrit 31.4 % (36.0-47.0) Mean Corpuscular Volume 89 fL (79-100) Mean Corpuscular Hemoglobin 30 pg (25-35) Mean Corpuscular Hemoglobin Concent 34 g/dL (31-37) Red Cell Distribution Width 14.1 % (11.5-14.5) Platelet Count 104 x10^3/uL (140-400) Neutrophils (%) (Auto) 69 % (31-73) Lymphocytes (%) (Auto) 18 % (24-48) Monocytes (%) (Auto) 10 % (0-9) Eosinophils (%) (Auto) 3 % (0-3) Basophils (%) (Auto) 0 % (0-3) Neutrophils # (Auto) 3.2 x10^3uL (1.8-7.7) Lymphocytes # (Auto) 0.9 x10^3/uL (1.0-4.8) Monocytes # (Auto) 0.5 x10^3/uL (0.0-1.1) Eosinophils # (Auto) 0.1 x10^3/uL (0.0-0.7) Basophils # (Auto) 0.0 x10^3/uL (0.0-0.2) Sodium Level 144 mmol/L (136-145) Potassium Level 3.5 mmol/L (3.5-5.1) Chloride Level 107 mmol/L (98-107) Carbon Dioxide Level 27 mmol/L (21-32) Anion Gap 10 (6-14) Blood Urea Nitrogen 17 mg/dL (7-20) Creatinine 1.3 mg/dL (0.6-1.0) Estimated GFR (Cockcroft-Gault) 40.7 BUN/Creatinine Ratio 13 (6-20) Glucose Level 166 mg/dL (70-99) Calcium Level 9.0 mg/dL (8.5-10.1) Total Bilirubin 0.3 mg/dL (0.2-1.0) Aspartate Amino Transf (AST/SGOT) 110 U/L (15-37) Alanine Aminotransferase (ALT/SGPT) 106 U/L (14-59) Alkaline Phosphatase 144 U/L (46-116) Total Protein 6.3 g/dL (6.4-8.2) Albumin 2.1 g/dL (3.4-5.0) Albumin/Globulin Ratio 0.5 (1.0-1.7) Micro Microbiology 11/16/18 Blood Culture - Preliminary, Resulted NO GROWTH AFTER 2 DAYS 11/16/18 Urine Culture - Preliminary, Resulted 11/16/18 Urine Culture Result 1 (QUIQUE) - Preliminary, Resulted Objective Assessment GNR bacteremia with sepsis, POA -Recent clindamycin Complicated UTI, POA Leukocytosis, improved Allergy Ceftriaxone, Keflex, cipro, Levaquin all w/ rash. Tolerated Zosyn wo problem in past. Obstructive uropathy from nephrolithiasis s/p uretal stent placement and lithotripsy at [facility] 11/13. AMINTA, improved Morbid obesity Hypothyroidism h/o E. coli and Proteus bacteremia Plan Plan of Care Continue Zosyn Await GNR ID/susceptibilities UC pending Monitor WBC, temp and renal function Supportive care d/w ALCIDES ATKINSON MD November 19, 2018 12:46
[2018-11-19] MEDS ORDERED: TRAZ150T49 PO (14:28)
--- NOTE | 2018-11-19 15:21 | NUR ---
SW following pt for anticipated dc needs. Chart reviewed. Pt lives at home with spouse/family. PT/OT recommends home with assistance/home health. SW will arrange HH if ordered by Physician.
[2018-11-19 16:00] VITALS: BP 128/67
[2018-11-19] MEDS: FLUTICASONE 50MCG/NASAL SPRAY 16GM BOTTLE. NS SCH (17:52)
[2018-11-19 19:20] VITALS: BP 161/67
[2018-11-19] MEDS: ATORVASTATIN CALCIUM 40 MG TABLET. PO SCH (21:11)
[2018-11-19] MEDS: traZODone 50 MG TABLET. PO SCH (21:12)
[2018-11-19] MEDS: INSULIN GLARGINE 300 UNITS/3 ML INSULN.PEN. SQ SCH (21:13)
[2018-11-19] MEDS: oxyCODONE/APAP 5/325 1 TAB TABLET PO PRN (21:59)
[2018-11-19] MEDS ORDERED: oxyCODONE/APAP 5/325 1 TAB TABLET PO PRN (23:33)
[2018-11-19 23:59] VITALS: BP 120/66
[2018-11-20] MEDS: PIPERACILLIN/TAZOBACTAM 3.375 GM in IV NORMAL SALINE 50ML 50 ML IV SCH ×4 (00:27→18:20)
[2018-11-20] MEDS: IV NORMAL SALINE 1000ML BAG 1,000 ML IV SCH ×3 (00:28→21:56)
[2018-11-20 04:47] VITALS: BP 149/65
[2018-11-20] MEDS: LEVOTHYROXINE 125 MCG TABLET PO SCH (06:06)
[2018-11-20 07:36] VITALS: BP 157/64
[2018-11-20] MEDS: INSULIN LISPRO 300 UNITS/3 ML INSULN.PEN. SQ SCH ×6 (08:00→17:00)
[2018-11-20] MEDS: ASPIRIN 325 MG TABLET PO SCH (08:40)
[2018-11-20] MEDS: LOSARTAN POTASSIUM 50 MG TABLET. PO SCH (08:40)
[2018-11-20] MEDS: CITALOPRAM 20 MG TABLET. PO SCH (08:40)
[2018-11-20] MEDS: PANTOPRAZOLE 40 MG TABLET.DR. PO SCH (08:40)
[2018-11-20] MEDS: hydroCHLOROthiazide 12.5 MG CAPSULE PO SCH (08:41)
[2018-11-20] MEDS: POTASSIUM CHLORIDE 20 MEQ TABLET.ER. PO SCH (08:41)
[2018-11-20] MEDS: LACTOBACILLUS RHAMNOSUS GG 1 CAPSULE. PO SCH ×2 (08:41→21:43)
[2018-11-20] MEDS: CARVEDILOL 12.5 MG TABLET. PO SCH ×3 (08:42→18:18)
[2018-11-20] MEDS: amLODIPine BESYLATE 10 MG TABLET PO SCH (08:42)
[2018-11-20] MEDS: CHLORTHALIDONE 25 MG TABLET. PO SCH (08:42)
[2018-11-20] MEDS: FLUTICASONE 50MCG/NASAL SPRAY 16GM BOTTLE. NS SCH (08:43)
[2018-11-20] MEDS: LIDOCAINE (700MG/PATCH) PATCH. TD SCH (08:43)
[2018-11-20] MEDS: HEPARIN for SUB-Q USE 5,000 UNIT/ML VIAL. SQ SCH ×2 (08:53→21:51)
--- NOTE | 2018-11-20 09:14 | PDOC ---
SUBJECTIVE Subjective Doing well this am, would like to go home. No pain/dysuria. Every once in a while has stent discomfort, but otherwise feeling well. OBJECTIVE Objective Physical Exam: General appearance: Alert and Oriented Head: Normocephalic, without obvious abnormality Eyes: conjunctivae/corneas clear. PERRL, EOM's intact. Fundi benign Back: negative Lungs: Regular respirations, non labored breathing Abdomen: soft, obese, slight tenderness right side with palpation. Vital Signs Vital Signs Date Time Temp Pulse Resp B/P (MAP) Pulse Ox O2 Delivery O2 Flow Rate FiO2 11/20/18 08:42 64 157/64 11/20/18 08:42 64 157/64 11/20/18 08:40 64 157/64 11/20/18 07:36 97.7 64 18 157/64 (95) 92 BiPAP/CPAP 97.7 11/20/18 04:47 97.5 50 18 149/65 (93) 90 BiPAP/CPAP 97.5 11/19/18 23:59 98.2 56 16 120/66 (84) 94 BiPAP/CPAP 98.2 11/19/18 23:43 Nasal Cannula 2.0 11/19/18 21:59 Room Air 2.0 11/19/18 20:00 Nasal Cannula 2.0 11/19/18 19:20 97.8 60 18 161/67 (98) 94 Room Air 97.8 11/19/18 17:00 58 11/19/18 16:00 98.1 52 18 128/67 (87) 93 Room Air 5.0 98.1 11/19/18 12:00 97.9 55 18 137/72 (93) 88 Room Air 5.0 97.9 I & O Intake and Output 11/20/18 06:59 Intake Total 1180 ml Output Total 1450 ml Balance -270 ml Intake Oral 1180 ml Output Urine Total 1450 ml # Voids 2 PHYSICAL EXAM Physical Exam Physical Exam: General appearance: Alert and Oriented Head: Normocephalic, without obvious abnormality Eyes: conjunctivae/corneas clear. PERRL, EOM's intact. Fundi benign Back: negative Lungs: Regular respirations, non labored breathing Abdomen: soft, obese, slight tenderness right side with palpation. ASSESSMENT/PLAN Assessment/Plan UTI with indwelling stent. We will treat her UTI and coordinate with Dr. Sage , who is her original urologist/surgeon so she can follow up with him. Continue pure wick device, since patient incontinent. D/C whenever cultures are back/med team is ready, and we will let Dr. Cazares know when she has been released so he can continue her care for kidney stones. COMMENT Lab Laboratory Tests Test 11/19/18 11:32 11/19/18 17:01 11/19/18 19:33 11/20/18 07:12 Glucose (Fingerstick) 94 mg/dL (70-99) 141 mg/dL (70-99) 131 mg/dL (70-99) 65 mg/dL (70-99) Test 11/20/18 07:51 Glucose (Fingerstick) 85 mg/dL (70-99) RANJIT NICOLE APRN November 20, 2018 09:14
--- NOTE | 2018-11-20 10:13 | PDOC ---
PROGRESS NOTE CHIEF COMPLAINT: no pain now SUBJECTIVE: ROS: ROS: RESPIRATORY: Shortness of breath denies. Cough denies. UROLOGY: Denies blood in urine. urinary incont HPI: Duration: [] Quality: [] Severity: [] Site/Location: [] Problems: Problems Medical Problems: (1) Sepsis Status: Acute (2) Urinary tract infection Status: Acute OBJECTIVE: Vital Signs: Vital Signs Date Time Temp Pulse Resp B/P (MAP) Pulse Ox O2 Delivery O2 Flow Rate FiO2 11/20/18 08:42 64 157/64 11/20/18 08:42 64 157/64 11/20/18 08:40 64 157/64 11/20/18 07:36 97.7 64 18 157/64 (95) 92 BiPAP/CPAP 97.7 11/20/18 04:47 97.5 50 18 149/65 (93) 90 BiPAP/CPAP 97.5 11/19/18 23:59 98.2 56 16 120/66 (84) 94 BiPAP/CPAP 98.2 11/19/18 23:43 Nasal Cannula 2.0 11/19/18 21:59 Room Air 2.0 11/19/18 20:00 Nasal Cannula 2.0 11/19/18 19:20 97.8 60 18 161/67 (98) 94 Room Air 97.8 11/19/18 17:00 58 11/19/18 16:00 98.1 52 18 128/67 (87) 93 Room Air 5.0 98.1 11/19/18 12:00 97.9 55 18 137/72 (93) 88 Room Air 5.0 97.9 I & O Intake and Output 11/20/18 07:00 Intake Total 1180 ml Output Total 1450 ml Balance -270 ml Intake Oral 1180 ml Output Urine Total 1450 ml # Voids 2 PHYSICAL EXAM: Physical Exam: General: Pleasant, no acute distress, well groomed Eyes: conjunctiva anicteric, eyes full range of motion ENT: moist oral mucosa, normal dentition Neck: Trachea midline, no masses Respiratory: unlabored breathing, not using accessory muscles, no crackles or wheezes Cardiovascular: Regular rate and rhythm, no peripheral edema Abdomen: nontender, nondistended, no hepatosplenomegaly, no masses Skin: no rashes or skin lesions on visualized skin Psych: normal mood, affect. Alert and oriented x 3. LABS: Laboratory Tests Test 11/17/18 12:44 11/17/18 17:46 11/17/18 21:06 11/18/18 03:30 Glucose (Fingerstick) 78 mg/dL (70-99) 180 mg/dL (70-99) 176 mg/dL (70-99) White Blood Count 8.3 x10^3/uL (4.0-11.0) Red Blood Count 3.76 x10^6/uL (3.50-5.40) Hemoglobin 11.0 g/dL (12.0-15.5) Hematocrit 33.2 % (36.0-47.0) Mean Corpuscular Volume 88 fL (79-100) Mean Corpuscular Hemoglobin 29 pg (25-35) Mean Corpuscular Hemoglobin Concent 33 g/dL (31-37) Red Cell Distribution Width 14.0 % (11.5-14.5) Platelet Count 110 x10^3/uL (140-400) Neutrophils (%) (Auto) 79 % (31-73) Lymphocytes (%) (Auto) 10 % (24-48) Monocytes (%) (Auto) 9 % (0-9) Eosinophils (%) (Auto) 2 % (0-3) Basophils (%) (Auto) 0 % (0-3) Neutrophils # (Auto) 6.6 x10^3uL (1.8-7.7) Lymphocytes # (Auto) 0.8 x10^3/uL (1.0-4.8) Monocytes # (Auto) 0.8 x10^3/uL (0.0-1.1) Eosinophils # (Auto) 0.1 x10^3/uL (0.0-0.7) Basophils # (Auto) 0.0 x10^3/uL (0.0-0.2) Sodium Level 142 mmol/L (136-145) Potassium Level 3.2 mmol/L (3.5-5.1) Chloride Level 105 mmol/L (98-107) Carbon Dioxide Level 27 mmol/L (21-32) Anion Gap 10 (6-14) Blood Urea Nitrogen 23 mg/dL (7-20) Creatinine 1.3 mg/dL (0.6-1.0) Estimated GFR (Cockcroft-Gault) 40.7 BUN/Creatinine Ratio 18 (6-20) Glucose Level 57 mg/dL (70-99) Calcium Level 9.3 mg/dL (8.5-10.1) Total Bilirubin 0.4 mg/dL (0.2-1.0) Aspartate Amino Transf (AST/SGOT) 61 U/L (15-37) Alanine Aminotransferase (ALT/SGPT) 58 U/L (14-59) Alkaline Phosphatase 110 U/L (46-116) Total Protein 7.0 g/dL (6.4-8.2) Albumin 2.3 g/dL (3.4-5.0) Albumin/Globulin Ratio 0.5 (1.0-1.7) Test 11/18/18 08:20 11/18/18 11:45 11/18/18 16:40 11/18/18 21:16 Glucose (Fingerstick) 49 mg/dL (70-99) 110 mg/dL (70-99) 99 mg/dL (70-99) 91 mg/dL (70-99) Test 11/19/18 06:06 11/19/18 07:36 11/19/18 11:32 11/19/18 17:01 White Blood Count 4.7 x10^3/uL (4.0-11.0) Red Blood Count 3.54 x10^6/uL (3.50-5.40) Hemoglobin 10.6 g/dL (12.0-15.5) Hematocrit 31.4 % (36.0-47.0) Mean Corpuscular Volume 89 fL (79-100) Mean Corpuscular Hemoglobin 30 pg (25-35) Mean Corpuscular Hemoglobin Concent 34 g/dL (31-37) Red Cell Distribution Width 14.1 % (11.5-14.5) Platelet Count 104 x10^3/uL (140-400) Neutrophils (%) (Auto) 69 % (31-73) Lymphocytes (%) (Auto) 18 % (24-48) Monocytes (%) (Auto) 10 % (0-9) Eosinophils (%) (Auto) 3 % (0-3) Basophils (%) (Auto) 0 % (0-3) Neutrophils # (Auto) 3.2 x10^3uL (1.8-7.7) Lymphocytes # (Auto) 0.9 x10^3/uL (1.0-4.8) Monocytes # (Auto) 0.5 x10^3/uL (0.0-1.1) Eosinophils # (Auto) 0.1 x10^3/uL (0.0-0.7) Basophils # (Auto) 0.0 x10^3/uL (0.0-0.2) Sodium Level 144 mmol/L (136-145) Potassium Level 3.5 mmol/L (3.5-5.1) Chloride Level 107 mmol/L (98-107) Carbon Dioxide Level 27 mmol/L (21-32) Anion Gap 10 (6-14) Blood Urea Nitrogen 17 mg/dL (7-20) Creatinine 1.3 mg/dL (0.6-1.0) Estimated GFR (Cockcroft-Gault) 40.7 BUN/Creatinine Ratio 13 (6-20) Glucose Level 166 mg/dL (70-99) Calcium Level 9.0 mg/dL (8.5-10.1) Total Bilirubin 0.3 mg/dL (0.2-1.0) Aspartate Amino Transf (AST/SGOT) 110 U/L (15-37) Alanine Aminotransferase (ALT/SGPT) 106 U/L (14-59) Alkaline Phosphatase 144 U/L (46-116) Total Protein 6.3 g/dL (6.4-8.2) Albumin 2.1 g/dL (3.4-5.0) Albumin/Globulin Ratio 0.5 (1.0-1.7) Glucose (Fingerstick) 135 mg/dL (70-99) 94 mg/dL (70-99) 141 mg/dL (70-99) Test 11/19/18 19:33 11/20/18 07:12 11/20/18 07:51 Glucose (Fingerstick) 131 mg/dL (70-99) 65 mg/dL (70-99) 85 mg/dL (70-99) Microbiology 11/16/18 Blood Culture - Preliminary, Resulted NO GROWTH AFTER 3 DAYS 11/16/18 Urine Culture - Preliminary, Resulted 11/16/18 Urine Culture Result 1 (QUIQUE) - Preliminary, Resulted MEDICATIONS: Current Medications Medications (Trade) Dose Ordered Sig/Nader Start Time Stop Time Status Last Admin Dose Admin Acetaminophen (Tylenol) 650 mg PRN Q6HRS PRN 11/16/18 18:00 11/18/18 10:05 650 MG Amlodipine Besylate (Norvasc) 10 mg DAILY 11/17/18 09:00 11/20/18 08:42 10 MG Aspirin (Robert Aspirin) 325 mg DAILY 11/17/18 09:00 11/20/18 08:40 325 MG Atorvastatin Calcium (Lipitor) 80 mg QHS 11/16/18 21:00 11/19/18 21:11 80 MG Carvedilol (Coreg) 12.5 mg BIDWMEALS 11/16/18 18:30 11/20/18 08:42 12.5 MG Ceftriaxone Sodium (Rocephin) 1 gm 1X ONCE 11/16/18 18:00 11/16/18 18:01 DC 11/16/18 17:30 1 GM Chlorthalidone (Thalitone) 25 mg DAILY 11/17/18 09:00 11/20/18 08:42 25 MG Citalopram Hydrobromide (CeleXA) 40 mg DAILY 11/17/18 09:00 11/20/18 08:40 40 MG Clonidine HCl (Catapres) 0.1 mg PRN Q8HRS PRN 11/16/18 18:00 Dextrose (Dextrose 50%-Water Syringe) 12.5 gm PRN Q15MIN PRN 11/16/18 18:00 Diphenhydramine HCl (Benadryl) 12.5 mg 1X ONCE 11/16/18 18:00 11/16/18 18:01 DC 11/16/18 17:30 12.5 MG Fluticasone Propionate (Flonase) 2 spray DAILY 11/19/18 15:00 11/20/18 08:43 2 SPRAY Heparin Sodium (Porcine) (Heparin Sodium) 5,000 unit Q12HR 11/16/18 19:00 11/20/18 08:53 5,000 UNIT Hydrochlorothiazide (Microzide) 12.5 mg DAILY 11/17/18 09:00 11/20/18 08:41 12.5 MG Info (Icu Electrolyte Protocol) 1 ea DAILY 11/17/18 09:00 11/19/18 14:24 DC Insulin Glargine (Lantus) 90 units QHS 11/17/18 21:00 11/19/18 21:13 90 UNITS Insulin Human Lispro (HumaLOG) 35 units TIDWMEALS 11/17/18 08:00 11/19/18 18:03 35 UNITS Insulin Human Regular (HumuLIN R VIAL) 6 unit 1X ONCE 11/16/18 17:45 11/16/18 17:47 DC 11/16/18 17:58 6 UNIT Lactobacillus Rhamnosus (Culturelle) 1 cap BID 11/16/18 21:00 11/20/18 08:41 1 CAP Lactulose (Lactulose) 20 gm PRN Q12HR PRN 11/16/18 18:00 Levothyroxine Sodium (Synthroid) 250 mcg DAILY06 11/17/18 06:00 11/20/18 06:06 250 MCG Lidocaine (Lidoderm) 1 patch DAILY 11/17/18 09:00 11/20/18 08:43 1 PATCH Lorazepam (Ativan Inj) 0.5 mg PRN Q6HRS PRN 11/16/18 18:00 Losartan Potassium (Cozaar) 100 mg DAILY 11/17/18 09:00 11/20/18 08:40 100 MG Magnesium Sulfate 50 ml @ 25 mls/hr 1X ONCE 11/16/18 18:15 11/16/18 20:14 DC 11/16/18 20:48 25 MLS/HR Non-Formulary Medication (Semaglutide (Ozempic)) 0.5 mg QFR 11/23/18 16:00 Ondansetron HCl (Zofran) 4 mg PRN Q6HRS PRN 11/16/18 18:00 Oxycodone/ Acetaminophen (Percocet 5/325) 2 tab PRN Q4HRS PRN 11/19/18 21:45 11/19/18 21:59 2 TAB Pantoprazole Sodium (Protonix) 40 mg DAILYAC 11/17/18 07:30 11/20/18 08:40 40 MG Piperacillin Sod/ Tazobactam Sod 3.375 gm/Sodium Chloride 50 ml @ 100 mls/hr Q6HRS 11/17/18 12:00 11/20/18 06:06 100 MLS/HR Potassium Chloride (Klor-Con) 40 meq 1X ONCE 11/18/18 10:00 11/18/18 10:01 DC Sodium Chloride 1,000 ml @ 1,000 mls/hr 1X ONCE 11/16/18 20:45 11/16/18 21:44 DC 11/16/18 20:46 1,000 MLS/HR Sodium Chloride (Normal Saline Flush) 3 ml QSHIFT PRN 11/16/18 18:00 Trazodone HCl (Desyrel) 150 mg QHS 11/19/18 21:00 11/19/18 21:12 150 MG Vancomycin HCl 2 gm/Sodium Chloride 500 ml @ 250 mls/hr 1X ONCE 11/16/18 19:00 11/16/18 20:59 DC 11/16/18 18:32 250 MLS/HR Zolpidem Tartrate (Ambien) 5 mg PRN QHS PRN 11/16/18 18:00 ASSESSMENT & PLAN cont IV abx until ID deems her ready for discharge. She has f/u w her urologist for stent/stone management. Problem List: Problems Medical Problems: (1) Sepsis Status: Acute (2) Urinary tract infection Status: Acute MUMTAZ QUISPE MD November 20, 2018 10:12
--- NOTE | 2018-11-20 10:46 | PDOC ---
PROGRESS NOTES Chief Complaint Chief Complaint Escherichia coli UTI Escherichia coli bacteremia 1 out of 4 bottles Obesity, BMI 52 History staghorn calculi status post lithotripsy [place] I, resolved, [facility] Normocytic anemia History of Present Illness History of Present Illness She was transferred out of ICU meeting sepsis criteria ID on board, Escherichia coli UTI, sensitivity still pending No white count, no fever, nontoxic-appearing Mishra catheter out-huge bedside commode, but urinary incontinence that she does not make it to the bedside commode [facility], stayed there for 3 weeks PT has recommended current home health Plan: Creatinine is much better 1.3 today from 2 on admission Awaiting sensitivities before discharging on by mouth antibiotics [facility] on discharge possibly hopefully,tomorrow Vitals Vitals Vital Signs Date Time Temp Pulse Resp B/P (MAP) Pulse Ox O2 Delivery O2 Flow Rate FiO2 11/20/18 08:42 64 157/64 11/20/18 07:36 97.7 18 92 BiPAP/CPAP 97.7 11/19/18 23:43 2.0 Physical Exam Physical Exam GENERAL: Propped up in bed, alert, eating HEENT: Pupils equally round, reactive. Normal conjunctivae. Oral cavity/pharynx moist NECK: Supple. LUNGS: Clear to auscultation. HEART: S1 and S2, regular ABDOMEN: Obese, soft, nontender, BS active GENITOURINARY: PureWick EXTREMITIES: No gross edema or cyanosis SKIN: Warm without generalized rash. NEUROLOGIC: Alert and oriented x 3. PIV General: Alert, Oriented X3, Cooperative, mild distress Heart: Regular rate, Normal S1, Normal S2, No murmurs Lungs: Clear Abdomen: Normal bowel sounds, Soft Extremities: No clubbing, No cyanosis, No edema Skin: No significant lesion Labs LABS Laboratory Tests Test 11/19/18 11:32 11/19/18 17:01 11/19/18 19:33 11/20/18 07:12 Glucose (Fingerstick) 94 mg/dL (70-99) 141 mg/dL (70-99) 131 mg/dL (70-99) 65 mg/dL (70-99) Test 11/20/18 07:51 Glucose (Fingerstick) 85 mg/dL (70-99) Review of Systems Review of Systems A 14 point ROS was completed with the following noted as positive: Other systems reviewed and negative. \CONSTITUTIONAL: No fever or chills EYES: No recent changes SKIN: No rash or itching CARDIOVASCULAR: No chest pain, syncope, palpitations, or edema RESPIRATORY: No SOB or cough GASTROINTESTINAL: No nausea, vomiting or abdominal pain NEUROLOGICAL: No headaches or weakness ENDOCRINE: No cold or heat intolerance GENITOURINARY: No urgency or frequency of urination MUSCULOSKELETAL: No back pain or joint pain LYMPHATICS: No enlarged lymph nodes PSYCHIATRIC: No anxiety or depression Assessment and Plan Assessmemt and Plan Problems Medical Problems: (1) Sepsis Status: Acute (2) Urinary tract infection Status: Acute Comment Review of Relevant I have reviewed the following items jeffrey (where applicable) has been applied. Labs Laboratory Tests Test 11/18/18 11:45 11/18/18 16:40 11/18/18 21:16 11/19/18 06:06 Glucose (Fingerstick) 110 mg/dL (70-99) 99 mg/dL (70-99) 91 mg/dL (70-99) White Blood Count 4.7 x10^3/uL (4.0-11.0) Red Blood Count 3.54 x10^6/uL (3.50-5.40) Hemoglobin 10.6 g/dL (12.0-15.5) Hematocrit 31.4 % (36.0-47.0) Mean Corpuscular Volume 89 fL (79-100) Mean Corpuscular Hemoglobin 30 pg (25-35) Mean Corpuscular Hemoglobin Concent 34 g/dL (31-37) Red Cell Distribution Width 14.1 % (11.5-14.5) Platelet Count 104 x10^3/uL (140-400) Neutrophils (%) (Auto) 69 % (31-73) Lymphocytes (%) (Auto) 18 % (24-48) Monocytes (%) (Auto) 10 % (0-9) Eosinophils (%) (Auto) 3 % (0-3) Basophils (%) (Auto) 0 % (0-3) Neutrophils # (Auto) 3.2 x10^3uL (1.8-7.7) Lymphocytes # (Auto) 0.9 x10^3/uL (1.0-4.8) Monocytes # (Auto) 0.5 x10^3/uL (0.0-1.1) Eosinophils # (Auto) 0.1 x10^3/uL (0.0-0.7) Basophils # (Auto) 0.0 x10^3/uL (0.0-0.2) Sodium Level 144 mmol/L (136-145) Potassium Level 3.5 mmol/L (3.5-5.1) Chloride Level 107 mmol/L (98-107) Carbon Dioxide Level 27 mmol/L (21-32) Anion Gap 10 (6-14) Blood Urea Nitrogen 17 mg/dL (7-20) Creatinine 1.3 mg/dL (0.6-1.0) Estimated GFR (Cockcroft-Gault) 40.7 BUN/Creatinine Ratio 13 (6-20) Glucose Level 166 mg/dL (70-99) Calcium Level 9.0 mg/dL (8.5-10.1) Total Bilirubin 0.3 mg/dL (0.2-1.0) Aspartate Amino Transf (AST/SGOT) 110 U/L (15-37) Alanine Aminotransferase (ALT/SGPT) 106 U/L (14-59) Alkaline Phosphatase 144 U/L (46-116) Total Protein 6.3 g/dL (6.4-8.2) Albumin 2.1 g/dL (3.4-5.0) Albumin/Globulin Ratio 0.5 (1.0-1.7) Test 11/19/18 07:36 11/19/18 11:32 11/19/18 17:01 11/19/18 19:33 Glucose (Fingerstick) 135 mg/dL (70-99) 94 mg/dL (70-99) 141 mg/dL (70-99) 131 mg/dL (70-99) Test 11/20/18 07:12 11/20/18 07:51 Glucose (Fingerstick) 65 mg/dL (70-99) 85 mg/dL (70-99) Laboratory Tests Test 11/19/18 11:32 11/19/18 17:01 11/19/18 19:33 11/20/18 07:12 Glucose (Fingerstick) 94 mg/dL (70-99) 141 mg/dL (70-99) 131 mg/dL (70-99) 65 mg/dL (70-99) Test 11/20/18 07:51 Glucose (Fingerstick) 85 mg/dL (70-99) Microbiology 11/16/18 Blood Culture - Preliminary, Resulted NO GROWTH AFTER 3 DAYS 11/16/18 Urine Culture - Preliminary, Resulted 11/16/18 Urine Culture Result 1 (QUIQUE) - Preliminary, Resulted Medications Current Medications Sodium Chloride 1,000 ml @ 1,000 mls/hr 1X ONCE IV Last administered on 11/16/18at 17:07; Start 11/16/18 at 17:00; Stop 11/16/18 at 17:59; Status DC Ceftriaxone Sodium (Rocephin) 1 gm 1X ONCE IVP Last administered on 11/16/18at 17:30; Start 11/16/18 at 18:00; Stop 11/16/18 at 18:01; Status DC Diphenhydramine HCl (Benadryl) 12.5 mg 1X ONCE IVP Last administered on 11/16/18at 17:30; Start 11/16/18 at 18:00; Stop 11/16/18 at 18:01; Status DC Sodium Chloride 1,000 ml @ 1,000 mls/hr 1X ONCE IV Last administered on 11/16/18at 17:57; Start 11/16/18 at 17:45; Stop 11/16/18 at 18:44; Status DC Potassium Chloride (Klor-Con) 20 meq 1X ONCE PO Last administered on 11/16/18at 17:56; Start 11/16/18 at 17:45; Stop 11/16/18 at 17:47; Status DC Insulin Human Regular (HumuLIN R VIAL) 6 unit 1X ONCE IV Last administered on 11/16/18at 17:58; Start 11/16/18 at 17:45; Stop 11/16/18 at 17:47; Status DC Insulin Human Lispro (HumaLOG) 0-7 UNITS TIDWMEALS SQ ; Start 11/17/18 at 08:00; Stop 11/17/18 at 08:00; Status DC Dextrose (Dextrose 50%-Water Syringe) 12.5 gm PRN Q15MIN PRN IV SEE COMMENTS; Start 11/16/18 at 18:15; Stop 11/17/18 at 11:17; Status DC Lorazepam (Ativan Inj) 0.5 mg PRN Q6HRS PRN IV ANXIETY / AGITATION; Start 11/16/18 at 18:00 Ondansetron HCl (Zofran) 4 mg PRN Q6HRS PRN IV NAUSEA/VOMITING; Start 11/16/18 at 18:00 Zolpidem Tartrate (Ambien) 5 mg PRN QHS PRN PO INSOMNIA, MAY REPEAT IN 1HR; Start 11/16/18 at 18:00 Info (Icu Electrolyte Protocol) 1 ea DAILY MC ; Start 11/17/18 at 09:00; Stop 11/19/18 at 14:24; Status DC Heparin Sodium (Porcine) (Heparin Sodium) 5,000 unit Q12HR SQ Last administered on 11/20/18at 08:53; Start 11/16/18 at 19:00 Sodium Chloride (Normal Saline Flush) 3 ml QSHIFT PRN IV AFTER MEDS AND BLOOD DRAWS; Start 11/16/18 at 18:00 Sodium Chloride 1,000 ml @ 100 mls/hr Q10H IV Last administered on 11/20/18at 00:28; Start 11/16/18 at 17:56 Lactulose (Lactulose) 20 gm PRN Q12HR PRN PO CONSTIPATION; Start 11/16/18 at 18:00 Insulin Human Lispro (HumaLOG) 0-7 UNITS TIDWMEALS SQ Last administered on 11/17/18at 17:50; Start 11/17/18 at 08:00 Dextrose (Dextrose 50%-Water Syringe) 12.5 gm PRN Q15MIN PRN IV SEE COMMENTS; Start 11/16/18 at 18:00 Acetaminophen (Tylenol) 650 mg PRN Q6HRS PRN PO MILD - MODERATE PAIN Last administered on 11/18/18at 10:05; Start 11/16/18 at 18:00 Amlodipine Besylate (Norvasc) 10 mg DAILY PO Last administered on 11/20/18 08:42; Start 11/17/18 at 09:00 Aspirin (Robert Aspirin) 325 mg DAILY PO Last administered on 11/20/18 08:40; Start 11/17/18 at 09:00 Atorvastatin Calcium (Lipitor) 80 mg QHS PO Last administered on 11/19/18at 21:11; Start 11/16/18 at 21:00 Carvedilol (Coreg) 12.5 mg BIDWMEALS PO Last administered on 5/21/19at 08:42; Start 11/16/18 at 18:30 Chlorthalidone (Thalitone) 25 mg DAILY PO Last administered on 11/20/18 08:42; Start 11/17/18 at 09:00 Clonidine HCl (Catapres) 0.1 mg PRN Q8HRS PRN PO HYPERTENSION; Start 11/16/18 at 18:00 Lactobacillus Rhamnosus (Culturelle) 1 cap BID PO Last administered on 11/20/18at 08:41; Start 11/16/18 at 21:00 Oxycodone/ Acetaminophen (Percocet 5/325) 1 tab PRN Q4HRS PRN PO SEVERE PAIN 7- 10 Last administered on 11/18/18 21:50; Start 11/16/18 at 18:00; Stop 11/18/18 at 23:34; Status DC Pantoprazole Sodium (Protonix) 40 mg DAILYAC PO Last administered on 11/20/18 08:40; Start 11/17/18 at 07:30 Potassium Chloride (Klor-Con) 20 meq DAILYWBKFT PO Last administered on 11/20/18at 08:41; Start 11/17/18 at 08:00 Trazodone HCl (Desyrel) 100 mg QHS PO Last administered on 11/18/18 21:41; Start 11/16/18 at 21:00; Stop 11/19/18 at 14:26; Status DC Citalopram Hydrobromide (CeleXA) 40 mg DAILY PO Last administered on 11/20/18 08:40; Start 11/17/18 at 09:00 Insulin Human Lispro (HumaLOG) 24 units TIDWMEALS SQ ; Start 11/17/18 at 08:00; Stop 11/17/18 at 08:00; Status DC Insulin Glargine (Lantus) 64 units QHS SQ Last administered on 11/16/18at 21:47; Start 11/16/18 at 21:00; Stop 11/16/18 at 23:31; Status DC Levothyroxine Sodium (Synthroid) 250 mcg DAILY06 PO Last administered on 11/20/18 06:06; Start 11/17/18 at 06:00 Lidocaine (Lidoderm) 1 patch DAILY TD Last administered on 5/21/19at 08:43; Start 11/17/18 at 09:00 Losartan Potassium (Cozaar) 100 mg DAILY PO Last administered on 11/20/18at 08:40; Start 11/17/18 at 09:00 Non-Formulary Medication (Semaglutide (Ozempic)) 0.5 mg QFR SQ ; Start 11/23/18 at 16:00 Trazodone HCl (Desyrel) 50 mg QHS PO Last administered on 11/18/18at 21:00; Start 11/16/18 at 21:00; Stop 11/19/18 at 14:27; Status DC Vancomycin HCl 2 gm/Sodium Chloride 500 ml @ 250 mls/hr 1X ONCE IV Last administered on 11/16/18at 18:32; Start 11/16/18 at 19:00; Stop 11/16/18 at 20:59; Status DC Magnesium Sulfate 50 ml @ 25 mls/hr 1X ONCE IV Last administered on 11/16/18at 20:48; Start 11/16/18 at 18:15; Stop 11/16/18 at 20:14; Status DC Hydrochlorothiazide (Microzide) 12.5 mg DAILY PO Last administered on 11/20/18at 08:41; Start 11/17/18 at 09:00 Sodium Chloride 1,000 ml @ 1,000 mls/hr 1X ONCE IV Last administered on 11/16/18at 20:46; Start 11/16/18 at 20:45; Stop 11/16/18 at 21:44; Status DC Insulin Glargine (Lantus) 90 units QHS SQ Last administered on 11/19/18at 21:13; Start 11/17/18 at 21:00 Insulin Human Lispro (HumaLOG) 35 units TIDWMEALS SQ Last administered on 11/19/18at 18:03; Start 11/17/18 at 08:00 Piperacillin Sod/ Tazobactam Sod 3.375 gm/Sodium Chloride 50 ml @ 100 mls/hr Q6HRS IV Last administered on 11/20/18at 06:06; Start 11/17/18 at 12:00 Potassium Chloride (Klor-Con) 40 meq 1X ONCE PO Last administered on 11/18/18at 08:18; Start 11/18/18 at 08:30; Stop 11/18/18 at 08:31; Status DC Potassium Chloride (Klor-Con) 40 meq 1X ONCE PO ; Start 11/18/18 at 10:00; Stop 11/18/18 at 10:01; Status DC Oxycodone/ Acetaminophen (Percocet 5/325) 2 tab PRN Q4HRS PRN PO SEVERE PAIN 7- 10 Last administered on 11/19/18at 00:06; Start 11/19/18 at 23:33; Stop 11/19/18 at 23:33; Status DC Oxycodone/ Acetaminophen (Percocet 5/325) 1 tab STK-MED ONCE .ROUTE ; Start 11/18/18 at 23:56; Stop 11/18/18 at 23:57; Status DC Trazodone HCl (Desyrel) 150 mg QHS PO Last administered on 11/19/18at 21:12; Start 11/19/18 at 21:00 Fluticasone Propionate (Flonase) 2 spray DAILY NS Last administered on 11/20/18at 08:43; Start 11/19/18 at 15:00 Oxycodone/ Acetaminophen (Percocet 5/325) 2 tab PRN Q4HRS PRN PO SEVERE PAIN 7- 10 Last administered on 11/19/18at 21:59; Start 11/19/18 at 21:45 Active Scripts Active Lidocaine 1 Each Adh..patch 1 Patch TD DAILY 14 Days Culturelle (Lactobacillus Rhamnosus Gg) 1 Each Cap.sprink 1 Cap PO BID 30 Days Chlorthalidone (Chlorthalidone) 25 Mg Tablet 25 Mg PO DAILY 14 Days Klor-Con M20 (Potassium Chloride) 20 Meq Tab.er.prt 20 Meq PO DAILYWBKFT 14 Days Percocet 5-325 Mg Tablet (Oxycodone/Acetaminophen) 1 Each Tablet 1 Tab PO PRN Q4HRS PRN 10 Days Tylenol (Acetaminophen) 325 Mg Tablet 650 Mg PO PRN Q6HRS PRN 30 Days Amlodipine Besylate 10 Mg Tablet 10 Mg PO DAILY 30 Days Catapres (Clonidine Hcl) 0.1 Mg Tablet 0.1 Mg PO PRN Q8HRS PRN 30 Days Carvedilol (Carvedilol) 12.5 Mg Tablet 12.5 Mg PO BIDWMEALS 30 Days Atorvastatin Calcium 40 Mg Tablet 80 Mg PO QHS 30 Days Amox Tr-K Clv 500-125 Mg Tab (Amoxicillin/Potassium Clav) 1 Each Tablet 1 Tab PO BID 14 Days Reported Trazodone Hcl 150 Mg Tablet 150 Mg PO HS Tresiba Flextouch U-100 (Insulin Degludec) 100 Unit/1 Ml Insuln.pen 90 Unit SQ HS Novolog (Insulin Aspart) 100 Unit/1 Ml Cartridge 35 Unit SQ TIDAC Ozempic (Semaglutide) 0.25 Mg/0.2 Ml Pen.injctr 0.5 Mg SQ QFR Levothyroxine Sodium 125 Mcg Tablet 250 Mcg PO DAILYAC Protonix (Pantoprazole Sodium) 40 Mg Tablet.dr 1 Tab PO DAILY Aspirin 325 Mg Tablet 1 Tab PO DAILY Losartan-Hctz 100-12.5 Mg Tab (Losartan/Hydrochlorothiazide) 1 Each Tablet 1 Tab PO DAILY Escitalopram Oxalate 10 Mg Tablet 20 Mg PO DAILY Vitals/I & O Vital Sign - Last 24 Hours 11/19/18 11/19/18 11/19/18 11/19/18 12:00 16:00 17:00 19:20 Temp 97.9 98.1 97.8 97.9 98.1 97.8 Pulse 55 52 58 60 Resp 18 18 18 B/P (MAP) 137/72 (93) 128/67 (87) 161/67 (98) Pulse Ox 88 93 94 O2 Delivery Room Air Room Air Room Air O2 Flow Rate 5.0 5.0 11/19/18 11/19/18 11/19/18 11/19/18 20:00 21:59 23:43 23:59 Temp 98.2 98.2 Pulse 56 Resp 16 B/P (MAP) 120/66 (84) Pulse Ox 94 O2 Delivery Nasal Cannula Room Air Nasal Cannula BiPAP/CPAP O2 Flow Rate 2.0 2.0 2.0 11/20/18 11/20/18 11/20/18 11/20/18 04:47 07:36 08:40 08:42 Temp 97.5 97.7 97.5 97.7 Pulse 50 64 64 64 Resp 18 18 B/P (MAP) 149/65 (93) 157/64 (95) 157/64 157/64 Pulse Ox 90 92 O2 Delivery BiPAP/CPAP BiPAP/CPAP 11/20/18 08:42 Pulse 64 B/P (MAP) 157/64 Intake and Output 11/19/18 11/19/18 11/20/18 14:59 22:59 06:59 Intake Total 540 ml 440 ml 200 ml Output Total 450 ml 1000 ml Balance 90 ml 440 ml -800 ml JARED HOWE MD November 20, 2018 10:46
[2018-11-20 11:02] VITALS: BP 162/65
--- NOTE | 2018-11-20 11:14 | PDOC ---
Infectious Disease Note Subjective Subjective feeling much better ROS ROS no n/v/d/sob Vital Sign Vital Signs Vital Signs Date Time Temp Pulse Resp B/P (MAP) Pulse Ox O2 Delivery O2 Flow Rate FiO2 11/20/18 11:02 98.0 52 20 162/65 (97) 93 Room Air 98.0 11/19/18 23:43 2.0 Physical Exam PHYSICAL EXAM GENERAL: Propped up in bed, alert, eating HEENT: Pupils equally round, reactive. Normal conjunctivae. Oral cavity/pharynx moist NECK: Supple. LUNGS: Clear to auscultation. HEART: S1 and S2, regular ABDOMEN: Obese, soft, nontender, BS active GENITOURINARY: PureWick EXTREMITIES: No gross edema or cyanosis SKIN: Warm without generalized rash. NEUROLOGIC: Alert and oriented x 3. PIV Labs Lab Laboratory Tests Test 11/19/18 11:32 11/19/18 17:01 11/19/18 19:33 11/20/18 07:12 Glucose (Fingerstick) 94 mg/dL (70-99) 141 mg/dL (70-99) 131 mg/dL (70-99) 65 mg/dL (70-99) Test 11/20/18 07:51 Glucose (Fingerstick) 85 mg/dL (70-99) Micro BLOOD CULTURE LC Preliminary Preliminary report BLD CULT RESULT 1 Preliminary Gram negative rods Performed at: DA - [facility] [address], [place], [place] [id number] Target Developer: VELVET Sweet MD, Phone: [phone] Objective Assessment GNR bacteremia with sepsis, POA -Recent clindamycin Complicated UTI, POA Leukocytosis, improved Allergy Ceftriaxone, Keflex, cipro, Levaquin all w/ rash. Tolerated Zosyn wo problem in past. Obstructive uropathy from nephrolithiasis s/p uretal stent placement and lithotripsy at [facility] 11/13. AMINTA, improved Morbid obesity Hypothyroidism h/o E. coli and Proteus bacteremia Plan Plan of Care Continue Zosyn Await GNR ID/susceptibilities UC pending Monitor WBC, temp and renal function Supportive care d/w ALCIDES ATKINSON MD November 20, 2018 11:14
[2018-11-20] MEDS: oxyCODONE/APAP 5/325 1 TAB TABLET PO PRN ×2 (12:38→22:38)
[2018-11-20 16:03] VITALS: BP 161/65
[2018-11-20 19:40] VITALS: BP_SYST 165
[2018-11-20] MEDS: INSULIN GLARGINE 300 UNITS/3 ML INSULN.PEN. SQ SCH (21:00)
[2018-11-20] MEDS: traZODone 50 MG TABLET. PO SCH (21:42)
[2018-11-20] MEDS: ATORVASTATIN CALCIUM 40 MG TABLET. PO SCH (21:43)
--- NOTE | 2018-11-20 22:00 | NUR ---
Blood sugar 131 Pt discussed she wanted to hold Lantus since blood sugars has dropped at supper to 52 and at breakfast bloodsuigar was 50
[2018-11-20 23:12] VITALS: BP 189/77
[2018-11-21] MEDS: oxyCODONE/APAP 5/325 1 TAB TABLET PO PRN (01:36)
[2018-11-21 03:34] VITALS: BP 139/60
--- NOTE | 2018-11-21 05:41 | PDOC ---
Infectious Disease Note Subjective Subjective feeling much better ROS ROS no n/v/d/fever Vital Sign Vital Signs Vital Signs Date Time Temp Pulse Resp B/P (MAP) Pulse Ox O2 Delivery O2 Flow Rate FiO2 11/21/18 03:34 97.8 52 16 139/60 (86) 91 BiPAP/CPAP 97.8 11/21/18 02:36 2.0 Physical Exam PHYSICAL EXAM GENERAL: Propped up in bed, alert, eating HEENT: Pupils equally round, reactive. Normal conjunctivae. Oral cavity/pharynx moist NECK: Supple. LUNGS: Clear to auscultation. HEART: S1 and S2, regular ABDOMEN: Obese, soft, nontender, BS active GENITOURINARY: PureWick EXTREMITIES: No gross edema or cyanosis SKIN: Warm without generalized rash. NEUROLOGIC: Alert and oriented x 3. PIV Labs Lab Laboratory Tests Test 11/20/18 07:12 11/20/18 07:51 11/20/18 11:31 11/20/18 16:29 Glucose (Fingerstick) 65 mg/dL (70-99) 85 mg/dL (70-99) 129 mg/dL (70-99) 52 mg/dL (70-99) Test 11/20/18 17:11 11/20/18 20:58 Glucose (Fingerstick) 84 mg/dL (70-99) 131 mg/dL (70-99) Micro BC e coli Urin e coli Objective Assessment GNR bacteremia with sepsis, POA -Recent clindamycin Complicated UTI, POA Leukocytosis, improved Allergy Ceftriaxone, Keflex, cipro, Levaquin all w/ rash. Tolerated Zosyn wo problem in past. Obstructive uropathy from nephrolithiasis s/p uretal stent placement and lithotripsy at [facility] 11/13. AMINTA, improved Morbid obesity Hypothyroidism h/o E. coli and Proteus bacteremia Plan Plan of Care Monitor WBC, temp and renal function Supportive care d/w RN d/c ok on po omnicef recurrence possibility discussed since stone and still there and they need two more procedure ALCIDES BRAND MD November 21, 2018 05:41
[2018-11-21] MEDS: LEVOTHYROXINE 125 MCG TABLET PO SCH (06:01)
[2018-11-21] MEDS: PIPERACILLIN/TAZOBACTAM 3.375 GM in IV NORMAL SALINE 50ML 50 ML IV SCH ×3 (06:04)
[2018-11-21] MEDS: INSULIN LISPRO 300 UNITS/3 ML INSULN.PEN. SQ SCH ×2 (08:00)
[2018-11-21 08:01] VITALS: BP 130/70
[2018-11-21] MEDS ORDERED: CEFD300C PO (08:28)
--- NOTE | 2018-11-21 08:28 | SNU/HH DC ---
DISCHARGE WITH HOME HEALTH DISCHARGE INFORMATION: Discharge Date: November 21, 2018 Final Diagnosis: Problems Medical Problems: (1) Sepsis Status: Acute (2) Urinary tract infection Status: Acute Condition on Discharge: Stable CODE STATUS: Code Status: Full HOME HEALTH: Face to Face: I certify this patient is under my care and that I, or a nurse practitioner or physician's gynecological assistant working with me, had a face to face encounter that meets the physician face to face encounter requirements with this patient on []. 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 POST DISCHARGE ORDERS: Activity Instructions for Disc: Activity as tolerated Weight Bearing Status after Di: As tolerated DIET AFTER DISCHARGE: ADA Wound/Incision Care: No wound care needed CHECKS AFTER DISCHARGE: Checks after discharge: Check blood press - daily, Check blood sugar, ac/hs, Weigh Yourself Daily FOLLOW-UP: Follow Up With: cefdinir 300 BID x 10 days for uti, otherwise cont all home meds TREATMENT/EQUIPMENT ORDERS: Adaptive Equipment Issued: None CERTIFICATION STATEMENT: Certification Statement: Certification Statement: Based on the above finding, I certify that this patient is confined to the home and needs intermittent mcfp care, physical therapy and/or speech therapy, or continues to need occupational therapy.~ This patient is under my care, and I have initiated the establishment of the plan of care.~ This patient will be followed by myself or a community physician who will periodically review the plan of care. Home Meds Active Scripts Cefdinir (CEFDINIR) 300 Mg Capsule, 2 CAP PO DAILY for uti, #20 CAP Prov:JARED HOWE MD 11/21/18 Lidocaine (Lidocaine) 1 Each Adh..patch, 1 PATCH TD DAILY for LOW BACK PAIN for 14 Days, #14 PATCH Prov:NIKITA DU MD 10/01/18 Lactobacillus Rhamnosus Gg (CULTURELLE) 1 Each Cap.sprink, 1 CAP PO BID for GI SUPPLEMENT for 30 Days, #60 CAP Prov:NIKITA DU MD 10/01/18 Chlorthalidone (CHLORTHALIDONE ) 25 Mg Tablet, 25 MG PO DAILY for BLOOD PRESSURE for 14 Days, #14 TAB Prov:NIKITA DU MD 10/01/18 Potassium Chloride (KLOR-CON M20) 20 Meq Tab.er.prt, 20 MEQ PO DAILYWBKFT for SUPPLEMENT for 14 Days, #14 TAB.SR Prov:NIKITA DU MD 10/01/18 Oxycodone/Apap 5-325 (PERCOCET 5-325 MG TABLET ) 1 Each Tablet, 1 TAB PO PRN Q4HRS PRN for SEVERE PAIN for 10 Days, #30 TAB Prov:NIKITA DU MD 10/01/18 Acetaminophen (TYLENOL) 325 Mg Tablet, 650 MG PO PRN Q6HRS PRN for MILD - MODERATE PAIN for 30 Days, #60 TAB Prov:NIKITA DU MD 10/01/18 Amlodipine Besylate (AMLODIPINE BESYLATE) 10 Mg Tablet, 10 MG PO DAILY for BLOOD PRESSURE for 30 Days, #30 TAB Prov:NIKITA DU MD 10/01/18 Clonidine Hcl (CATAPRES) 0.1 Mg Tablet, 0.1 MG PO PRN Q8HRS PRN for HYPERTENSION, SEE COMMENTS for 30 Days, #60 TAB Prov:NIKITA DU MD 10/01/18 Carvedilol (CARVEDILOL ) 12.5 Mg Tablet, 12.5 MG PO BIDWMEALS for HEART/ BP for 30 Days, #60 TAB Prov:NIKITA DU MD 10/01/18 Atorvastatin Calcium (ATORVASTATIN CALCIUM) 40 Mg Tablet, 80 MG PO QHS for CHOLESTEROL for 30 Days, #60 TAB Prov:NIKITA DU MD 10/01/18 Amoxicillin/Potassium Clav (AMOX TR-K CLV 500-125 MG TAB) 1 Each Tablet, 1 TAB PO BID for UTI for 14 Days, #28 TAB Prov:NIKITA DU MD 10/01/18 Reported Medications Trazodone Hcl (TRAZODONE HCL) 150 Mg Tablet, 150 MG PO HS, TAB 11/19/18 Insulin Degludec (Tresiba Flextouch U-100) 100 Unit/1 Ml Insuln.pen, 90 UNIT SQ HS for diabetes, EACH 11/16/18 Insulin Aspart (NOVOLOG) 100 Unit/1 Ml Cartridge, 35 UNIT SQ TIDAC for diabetes, EACH 11/16/18 Semaglutide (Ozempic) 0.25 Mg/0.2 Ml Pen.injctr, 0.5 MG SQ QFR for hyperglycem ia, EACH 09/26/18 Levothyroxine Sodium (LEVOTHYROXINE SODIUM) 125 Mcg Tablet, 250 MCG PO DAILYAC for THYROID SUPPLEMENT, #30 TAB 0 Refills 09/26/18 Pantoprazole Sodium (PROTONIX) 40 Mg Tablet.dr, 1 TAB PO DAILY, #30 TAB 5 Refills 02/08/17 Aspirin (ASPIRIN) 325 Mg Tablet, 1 TAB PO DAILY, #30 TAB 5 Refills 02/07/17 Losartan/Hydrochlorothiazide (LOSARTAN-HCTZ 100-12.5 MG TAB) 1 Each Tablet, 1 TAB PO DAILY for hypertension, #30 09/09/16 Escitalopram Oxalate (ESCITALOPRAM OXALATE) 10 Mg Tablet, 20 MG PO DAILY for , #30 TAB 0 Refills 01/24/14 Discontinued Reported Medications Trazodone Hcl (TRAZODONE HCL) 100 Mg Tablet, 1 TAB PO QHS for , #30 TAB 1 Refill 09/26/18 Trazodone Hcl (TRAZODONE HCL) 50 Mg Tablet, 1 TAB PO QHS for , #30 TAB 1 Refill 09/26/18 Insulin Degludec (Tresiba Flextouch U-200) 200 Unit/1 Ml Insuln.pen, 64 UNIT SQ QHS for hyperglycemia, EACH 09/26/18 Insulin Aspart (NOVOLOG FLEXPEN) 100 Unit/1 Ml Insuln.pen, 24 UNIT SQ TIDWMEALS for hyperglycemia, SYR 09/26/18 JARED HOWE MD November 21, 2018 08:28
[2018-11-21] MEDS: CITALOPRAM 20 MG TABLET. PO SCH (09:19)
[2018-11-21] MEDS: ASPIRIN 325 MG TABLET PO SCH (09:19)
[2018-11-21] MEDS: POTASSIUM CHLORIDE 20 MEQ TABLET.ER. PO SCH (09:19)
[2018-11-21] MEDS: FLUTICASONE 50MCG/NASAL SPRAY 16GM BOTTLE. NS SCH (09:20)
[2018-11-21] MEDS: LACTOBACILLUS RHAMNOSUS GG 1 CAPSULE. PO SCH (09:20)
[2018-11-21] MEDS: PANTOPRAZOLE 40 MG TABLET.DR. PO SCH (09:21)
[2018-11-21] MEDS: hydroCHLOROthiazide 12.5 MG CAPSULE PO SCH (09:21)
[2018-11-21] MEDS: CARVEDILOL 12.5 MG TABLET. PO SCH (09:21)
[2018-11-21] MEDS: LOSARTAN POTASSIUM 50 MG TABLET. PO SCH (09:22)
[2018-11-21] MEDS: amLODIPine BESYLATE 10 MG TABLET PO SCH (09:22)
[2018-11-21] MEDS: CHLORTHALIDONE 25 MG TABLET. PO SCH (09:22)
[2018-11-21] MEDS: LIDOCAINE (700MG/PATCH) PATCH. TD SCH (09:24)
[2018-11-21] MEDS: HEPARIN for SUB-Q USE 5,000 UNIT/ML VIAL. SQ SCH (09:25)
--- NOTE | 2018-11-21 09:27 | PDOC ---
SUBJECTIVE Subjective No pain or dysuria. Still using purewick device and this is working well. OBJECTIVE Objective General appearance: Alert and Oriented Head: Normocephalic, without obvious abnormality Eyes: conjunctivae/corneas clear. PERRL, EOM's intact. Fundi benign Back: negative, no CVA pain bilaterally Lungs: Regular respirations, non labored breathing Abdomen: soft, obese, non tender with palpation Vital Signs Vital Signs Date Time Temp Pulse Resp B/P (MAP) Pulse Ox O2 Delivery O2 Flow Rate FiO2 11/21/18 08:01 97.5 54 20 130/70 (90) 93 BiPAP/CPAP 97.5 11/21/18 03:34 97.8 52 16 139/60 (86) 91 BiPAP/CPAP 97.8 11/21/18 02:36 18 96 Nasal Cannula 2.0 11/21/18 01:36 20 98 11/20/18 23:12 98.1 53 16 189/77 (114) 96 BiPAP/CPAP 98.1 11/20/18 22:38 20 96 Room Air 11/20/18 19:40 97.7 51 18 165/ 92 BiPAP/CPAP 97.7 11/20/18 16:03 97.7 48 20 161/65 (97) 91 Room Air 97.7 11/20/18 12:38 20 94 Room Air 11/20/18 11:02 98.0 52 20 162/65 (97) 93 Room Air 98.0 I & O Intake and Output 11/21/18 07:00 Intake Total 1180 ml Output Total 4300 ml Balance -3120 ml Intake Oral 1180 ml Output Urine Total 4300 ml PHYSICAL EXAM Physical Exam General appearance: Alert and Oriented Head: Normocephalic, without obvious abnormality Eyes: conjunctivae/corneas clear. PERRL, EOM's intact. Fundi benign Back: negative, no CVA pain bilaterally Lungs: Regular respirations, non labored breathing Abdomen: soft, obese, non tender with palpation ASSESSMENT/PLAN Assessment/Plan UTI with indwelling stent. ID continues to treat her UTI and is awaiting culture results prior to D/C Stable currently. Upon discharge, we will let Dr. Cazares, who is her original urologist, know so she can resume care with him for her kidney stones Continue pure wick device while in house, since patient incontinent. D/C whenever cultures are back/med team is ready. COMMENT Lab Laboratory Tests Test 11/20/18 11:31 11/20/18 16:29 11/20/18 17:11 11/20/18 20:58 Glucose (Fingerstick) 129 mg/dL (70-99) 52 mg/dL (70-99) 84 mg/dL (70-99) 131 mg/dL (70-99) Test 11/21/18 07:26 Glucose (Fingerstick) 113 mg/dL (70-99) RANJIT NICOLE APRN November 21, 2018 09:27
--- NOTE | 2018-11-21 10:17 | PDOC3 ---
Discharge Summary Visit Information Date of Admission: November 16, 2018 Date of Discharge: November 21, 2018 Admitting Diagnosis Comment: Escherichia coli UTI resistant to Bactrim and Levaquin but sensitive to penicillin Escherichia coli bacteremia 1 out of 4 bottles Obesity, BMI 52 History staghorn calculi status post lithotripsy [place] I, resolved, VMN Normocytic anemia Final Diagnosis Problems Medical Problems: (1) Sepsis Status: Acute (2) Urinary tract infection Status: Acute Brief Hospital Course Allergies Allergies Coded Allergies Type Severity Reaction Last Updated Verified ceftriaxone Allergy Intermediate rash 11/16/18 Yes cephalexin Allergy Intermediate RASH 11/16/18 Yes levofloxacin Allergy Intermediate RASH 11/16/18 Yes morphine Allergy Intermediate tolerates Dilaudid & Percocet 09/11/16 Yes ciprofloxacin Adverse Reaction Intermediate TENDONITIS 11/16/18 Yes lovastatin Adverse Reaction Intermediate CAUSES MUSCLE SPASMS 09/11/16 Yes Vital Signs Vital Signs Date Time Temp Pulse Resp B/P (MAP) Pulse Ox O2 Delivery O2 Flow Rate FiO2 11/21/18 09:22 54 130/70 11/21/18 08:01 97.5 20 93 BiPAP/CPAP 97.5 11/21/18 08:00 2.0 Lab Results Laboratory Tests Test 11/19/18 11:32 11/19/18 17:01 11/19/18 19:33 11/20/18 07:12 Glucose (Fingerstick) 94 mg/dL (70-99) 141 mg/dL (70-99) 131 mg/dL (70-99) 65 mg/dL (70-99) Test 11/20/18 07:51 11/20/18 11:31 11/20/18 16:29 11/20/18 17:11 Glucose (Fingerstick) 85 mg/dL (70-99) 129 mg/dL (70-99) 52 mg/dL (70-99) 84 mg/dL (70-99) Test 11/20/18 20:58 11/21/18 07:26 Glucose (Fingerstick) 131 mg/dL (70-99) 113 mg/dL (70-99) Laboratory Tests Test 11/20/18 11:31 11/20/18 16:29 11/20/18 17:11 11/20/18 20:58 Glucose (Fingerstick) 129 mg/dL (70-99) 52 mg/dL (70-99) 84 mg/dL (70-99) 131 mg/dL (70-99) Test 11/21/18 07:26 Glucose (Fingerstick) 113 mg/dL (70-99) Brief Hospital Course Ms. Lucas is a 68 old morbidly obese female needing a bariatric bed and a huge bedside commode, multiple allergies, BMI 51, admitted to the ICU because of sepsis, Escherichia coli bacteremia and Escherichia coli UTI turned out to be resistant to Levaquin and Bactrim but sensitive to penicillin. Comanage with ID. Transferred to the floor under my care. Okay for cefdinir 300 twice a day for 10 days. Remarkable for some urinary incontinence, needing a Mishra catheter but we took that out and still incontinent. Urology consulted. Advised to follow-up as outpatient and continue other supportive care. She did have history of bladder sling repair but that failed and previous urologist who was her surgeon had no further recommendations anymore. REgarding dc dispo, She already has current home health. She was recently discharged from [facility] after a three-week stay about a month ago. Consults performed by ID Procedures performed only ICU care Discharge Information Condition at Discharge: Improved, Stable Disposition/Orders: D/C to Home w/ HH Scheduled Amlodipine Besylate (Amlodipine Besylate) 10 Mg Tablet, 10 MG PO DAILY for BLOOD PRESSURE for 30 Days, #30 Prescribed by: NIKITA DU MD on 10/01/181439 Last Action: Continued on 11/16/181805 by JUDY AVILA MD Amoxicillin/Potassium Clav (Amox Tr-K Clv 500-125 Mg Tab) 1 Each Tablet, 1 TAB PO BID for UTI for 14 Days, #28 Prescribed by: NIKITA DU MD on 10/01/181439 Last Action: HELD on 11/16/181804 by JUDY AVILA MD Aspirin (Aspirin) 325 Mg Tablet, 1 TAB PO DAILY, #30 Ref 5 (Reported) Entered as Reported by: Claudia Mata on 02/07/17 0205 Last Action: Continued on 11/16/181805 by JUDY AVILA MD Atorvastatin Calcium (Atorvastatin Calcium) 40 Mg Tablet, 80 MG PO QHS for CHO LESTEROL for 30 Days, #60 Prescribed by: NIKITA DU MD on 10/01/181439 Last Action: Continued on 11/16/181805 by JUDY AVILA MD Carvedilol (Carvedilol ) 12.5 Mg Tablet, 12.5 MG PO BIDWMEALS for HEART/ BP f or 30 Days, #60 Prescribed by: NIKITA DU MD on 10/01/181439 Last Action: Continued on 11/16/181805 by JUDY AVILA MD Cefdinir (Cefdinir) 300 Mg Capsule, 2 CAP PO DAILY for uti, #20 Prescribed by: JARED HOWE on 11/21/18 0828 Chlorthalidone (Chlorthalidone ) 25 Mg Tablet, 25 MG PO DAILY for BLOOD PRESSURE for 14 Days, #14 Prescribed by: NIKITA DU MD on 10/01/181439 Last Action: Continued on 11/16/181805 by JUDY AVILA MD Escitalopram Oxalate (Escitalopram Oxalate) 10 Mg Tablet, 20 MG PO DAILY for , #30 Ref 0 (Reported) Entered as Reported by: SUZE MARRERO on 01/24/14 1225 Last Action: Converted on 11/16/181805 by JUDY AVILA MD Insulin Aspart (Novolog) 100 Unit/1 Ml Cartridge, 35 UNIT SQ TIDAC for diabetes, (Reported) Entered as Reported by: Juaquin Aguirre on 11/16/182219 Last Action: New Order on 11/16/182219 by Juaquin Aguirre Insulin Degludec (Tresiba Flextouch U-100) 100 Unit/1 Ml Insuln.pen, 90 UNIT SQ HS for diabetes, (Reported) Entered as Reported by: Juaquin Aguirre on 11/16/182220 Last Action: New Order on 11/16/182220 by Juaquin Aguirre Lactobacillus Rhamnosus Gg (Culturelle) 1 Each Cap.sprink, 1 CAP PO BID for GI SUPPLEMENT for 30 Days, #60 Prescribed by: NIKITA DU MD on 10/01/181439 Last Action: Continued on 11/16/181805 by JUDY AVILA MD Levothyroxine Sodium (Levothyroxine Sodium) 125 Mcg Tablet, 250 MCG PO DAILYAC for THYROID SUPPLEMENT, #30 Ref 0 (Reported) Entered as Reported by: YVONNE HORNER RN on 09/26/18 1000 Last Action: Converted on 11/16/181805 by JUDY AVILA MD Lidocaine (Lidocaine) 1 Each Adh..patch, 1 PATCH TD DAILY for LOW BACK PAIN for 14 Days, #14 Prescribed by: NIKITA DU MD on 10/01/18 1440 Last Action: Converted on 11/16/181805 by JUDY AVILA MD Losartan/Hydrochlorothiazide (Losartan-Hctz 100-12.5 Mg Tab) 1 Each Tablet, 1 TAB PO DAILY for hypertension, #30 (Reported) Entered as Reported by: JANIE DEAN on 09/09/16 2317 Last Action: Converted on 11/16/181805 by JUDY AVILA MD Pantoprazole Sodium (Protonix) 40 Mg Tablet.dr, 1 TAB PO DAILY, #30 Ref 5 (Reported) Entered as Reported by: EFRAÍN RAMOS on 02/08/17 1119 Last Action: Continued on 11/16/181805 by JUDY AVILA MD Potassium Chloride (Klor-Con M20) 20 Meq Tab.er.prt, 20 MEQ PO DAILYWBKFT for SUPPLEMENT for 14 Days, #14 Prescribed by: NIKITA DU MD on 10/01/181439 Last Action: Continued on 11/16/181805 by JUDY AVILA MD Semaglutide (Ozempic) 0.25 Mg/0.2 Ml Pen.injctr, 0.5 MG SQ QFR for hyperglycemia, (Reported) Entered as Reported by: YVONNE HORNER RN on 09/26/18999 Last Action: Converted on 11/16/181805 by JUDY AVILA MD Trazodone Hcl (Trazodone Hcl) 150 Mg Tablet, 150 MG PO HS, (Reported) Entered as Reported by: BRENDA MORALES RPH on 11/19/181427 Last Action: New Order on 11/19/181427 by BRENDA MORALES RPH Scheduled PRN Acetaminophen (Tylenol) 325 Mg Tablet, 650 MG PO PRN Q6HRS PRN for MILD - MODERATE PAIN for 30 Days, #60 Prescribed by: NIKITA DU MD on 10/01/181439 Last Action: Continued on 11/16/181805 by JUDY AVILA MD Clonidine Hcl (Catapres) 0.1 Mg Tablet, 0.1 MG PO PRN Q8HRS PRN for HYPERTENSION, SEE COMMENTS for 30 Days, #60 Prescribed by: NIKITA DU MD on 10/01/181439 Last Action: Continued on 11/16/181805 by JUDY AVILA MD Oxycodone/Apap 5-325 (Percocet 5-325 Mg Tablet ) 1 Each Tablet, 1 TAB PO PRN Q4HRS PRN for SEVERE PAIN for 10 Days, #30 Prescribed by: NIKITA DU MD on 10/01/181439 Last Action: Continued on 11/16/181805 by JUDY AVILA MD Discontinued Medications Insulin Aspart (Novolog Flexpen) 100 Unit/1 Ml Insuln.pen, 24 UNIT SQ TIDWMEALS for hyperglycemia, (Reported) Entered as Reported by: YVONNE HORNER RN on 09/26/18999 Last Action: Discontinued on 11/16/182213 by Juaquin Aguirre Insulin Degludec (Tresiba Flextouch U-200) 200 Unit/1 Ml Insuln.pen, 64 UNIT SQ QHS for hyperglycemia, (Reported) Entered as Reported by: YVONNE HORNER RN on 09/26/18999 Last Action: Discontinued on 11/16/182213 by Juaquin Aguirre Trazodone Hcl (Trazodone Hcl) 50 Mg Tablet, 1 TAB PO QHS for , #30 Ref 1 (Reported) Discontinued Reason: ERROR Entered as Reported by: Claudia Mata on 09/26/18458 Last Action: Discontinued on 11/19/181427 by BRENDA MORALES Jesus Trazodone Hcl (Trazodone Hcl) 100 Mg Tablet, 1 TAB PO QHS for , #30 Ref 1 (Reported) Discontinued Reason: ERROR Entered as Reported by: Claudia Mata on 09/26/18458 Last Action: Discontinued on 11/19/181427 by MAYNOR CROSS CHERRIE Y MD November 21, 2018 10:17
--- NOTE | 2018-11-21 11:02 | NUR ---
SW following pt. Spoke with pt and she reported she has [facility] health. SW phoned and faxed resumption orders to [facility]. Pt's choice and rights forms verbally consented by Pt and copies on chart. Pt reported her will be transporting her home. Discussed with RN.
[2018-11-21 12:09] VITALS: BP 164/70
--- NOTE | 2018-11-21 12:34 | NUR ---
Discharge Note: BENNY LIPSCOMB Discharge instructions and discharge home medications reviewed with Patient and a copy given. All questions have been answered and understanding verbalized. The following instructions and handouts were given: Follow up with Dr. Cazares as scheduled. Education pertaining to antiobiotic and urosepsis was discussed and given to patient. Discontinued lines and drains: [20 g Left forearm and AC removed with tip intact. Patient discharged to home with home health. Spouse drove patient from [facility] facility.
[2018-11-23] MEDS ORDERED: SEMAGLUTIDE 0.5 MG SQ SCH (16:00)
== END 2018-11-21 12:38 | disposition home health service (06) | DRG 871 ==
LOC: ER 15:07 → 1 WEST ICU 18:03 → 6 SOUTH 11-18 16:45
PROVIDERS: ADMIT Internal Medicine; ATTEND Internal Medicine
PROC: 5A09357 Assistance with Respiratory Ventilation, Less than 24 Consecutive Hours, Continuous Positive Airway Pressure (ICD-10-PCS; principal; 2018-11-17)
PROC: 5A09357 Assistance with Respiratory Ventilation, Less than 24 Consecutive Hours, Continuous Positive Airway Pressure (ICD-10-PCS; 2018-11-18)
PROC: 5A09357 Assistance with Respiratory Ventilation, Less than 24 Consecutive Hours, Continuous Positive Airway Pressure (ICD-10-PCS; 2018-11-19)
PROC: 5A09357 Assistance with Respiratory Ventilation, Less than 24 Consecutive Hours, Continuous Positive Airway Pressure (ICD-10-PCS; 2018-11-20)
PROC: 5A09357 Assistance with Respiratory Ventilation, Less than 24 Consecutive Hours, Continuous Positive Airway Pressure (ICD-10-PCS; 2018-11-21)
DX: A41.50 Gram-negative sepsis, unspecified (principal); N17.0 Acute kidney failure with tubular necrosis; E87.1 Hypo-osmolality and hyponatremia; N39.0 Urinary tract infection, site not specified; Z68.43 Body mass index [BMI] 50.0-59.9, adult; E66.01 Morbid (severe) obesity due to excess calories; D69.6 Thrombocytopenia, unspecified; I10 Essential (primary) hypertension; E87.6 Hypokalemia; E86.0 Dehydration; G47.33 Obstructive sleep apnea (adult) (pediatric); F32.9 Major depressive disorder, single episode, unspecified; E03.9 Hypothyroidism, unspecified; E78.5 Hyperlipidemia, unspecified; F41.9 Anxiety disorder, unspecified; M19.90 Unspecified osteoarthritis, unspecified site; K21.9 Gastro-esophageal reflux disease without esophagitis; R32 Unspecified urinary incontinence; B96.20 Unspecified Escherichia coli [E. coli] as the cause of diseases classified elsewhere; Y83.8 Other surgical procedures as the cause of abnormal reaction of the patient, or of later complication, without mention of misadventure at the time of the procedure; D64.9 Anemia, unspecified; E11.9 Type 2 diabetes mellitus without complications; Z85.42 Personal history of malignant neoplasm of other parts of uterus; Z90.49 Acquired absence of other specified parts of digestive tract; Z88.9 Allergy status to unspecified drugs, medicaments and biological substances; Z88.1 Allergy status to other antibiotic agents; Z88.5 Allergy status to narcotic agent; Z88.8 Allergy status to other drugs, medicaments and biological substances; Z87.442 Personal history of urinary calculi; Z86.73 Personal history of transient ischemic attack (TIA), and cerebral infarction without residual deficits; Z90.710 Acquired absence of both cervix and uterus; Z82.49 Family history of ischemic heart disease and other diseases of the circulatory system; Z79.4 Long term (current) use of insulin; Z79.82 Long term (current) use of aspirin; Z87.440 Personal history of urinary (tract) infections; Z85.43 Personal history of malignant neoplasm of ovary; Y92.89 Other specified places as the place of occurrence of the external cause
CPT/HCPCS: 36415; 71045; 74176; 76700; 80048; 80053; 81001; 82962; 83605; 83735; 85007; 85025; 85610; 85730; 87040; 87077; 87086; 87186; 87205; 87641; 96361; 96365; 96375; J0696; J1200; J1644; J1815; J2543; J3370; J3475; J7030; J7040; 97110; 97530; 97535; 99285-25

== ENCOUNTER 2019-02-17 17:05 | Inpatient (IN) | payer MEDICARE ==
[~2019-02-17] VITALS: Ht 165.1 cm; Wt 117.9 kg
[~2019-02-17 17:05] MED LIST changes: +CEFD300C PO; +INSU100C4 SQ; +INSU100I30 SQ; +LIDO700A21 TD; -LIDO700A39 TD; -PANT40TA3 PO; +PANT40TA77 PO; +TRAZ150T49 PO
[2019-02-17 17:27] LABS: BASO # 0.1 x10^3/uL (0.0-0.2); BASO % 1 % (0-3); EOS # 0.2 x10^3/uL (0.0-0.7); EOS % 2 % (0-3); HEMATOCRIT 39.4 % (36.0-47.0); HEMOGLOBIN 13.4 g/dL (12.0-15.5); LYMPH # 2.2 x10^3/uL (1.0-4.8); LYMPH % 30 % (24-48); MEAN CORPUSCULAR HEMOGLOBIN 29 pg (25-35); MEAN CORPUSCULAR HGB CONC 34 g/dL (31-37); MEAN CORPUSCULAR VOLUME 84 fL (79-100); MONO # 0.7 x10^3/uL (0.0-1.1); MONO % 9 % (0-9); NEUT # 4.3 x10^3/uL (1.8-7.7); NEUT % 58 % (31-73); PLATELET COUNT 198 x10^3/uL (140-400); RED BLOOD COUNT 4.67 x10^6/uL (3.50-5.40); RED CELL DISTRIBUTION WIDTH 16.4 % (11.5-14.5); WHITE BLOOD COUNT 7.4 x10^3/uL (4.0-11.0)
[2019-02-17] MEDS ORDERED: hydrALAZINE 20 MG/ML VIAL. IVP ONE ×2 (17:30→18:30)
[2019-02-17] MEDS ORDERED: fentaNYL PF VIAL 100 MCG/2 ML VIAL IV ONE (17:30)
[2019-02-17 17:36] LABS: CALCIUM 10.2 mg/dL (8.5-10.1); CREATININE 1.2 mg/dL (0.6-1.0); GFR 44.7; POTASSIUM 3.5 mmol/L (3.5-5.1); PROTHROMBIN TIME PATIENT 12.6 SEC (11.7-14.0)
[2019-02-17 17:42] LABS: ALBUMIN 3.6 g/dL (3.4-5.0); ALBUMIN/GLOBULIN RATIO 0.7 (1.0-1.7); MAGNESIUM 1.9 mg/dL (1.8-2.4); TOTAL BILIRUBIN 0.4 mg/dL (0.2-1.0); TOTAL PROTEIN 8.7 g/dL (6.4-8.2)
--- NOTE | 2019-02-17 18:04 | PHYS DOC ---
Past Medical History Past Medical History: Cancer, Depression, Diabetes-Type II, Heart Disease, Hypertension, Hypothyroid, Other Additional Past Medical Histor: uterine CA, KARENA (NHUNG ADRBY MD) Past Surgical History: Cancer Surgery, Cholecystectomy, Other Additional Past Surgical Histo: arthrocopic knee, 2 heart caths (NHUNG DARBY MD) Alcohol Use: None Drug Use: None (NHUNG DARBY MD) Adult General Chief Complaint Chief Complaint: NEURO SYMPTOMS/DEFICITS HPI HPI Patient is a 68 year old female who presents with complaining of headache and problem with speech. Patient history of migraine headache complaining of headache since yesterday and since last night impressive aphasia. Patient rated her pain 10 over 10 and states she had vomiting all night last night and was not able to eat or drink anything today. She denies chest pain and shortness of breath and fever and chills and neck pain. (NHUNG DARBY MD) Review of Systems Review of Systems Constitutional: Denies fever or chills [] Eyes: Denies change in visual acuity, redness, or eye pain [] HENT: Denies nasal congestion or sore throat [] Respiratory: Denies cough or shortness of breath [] Cardiovascular: No additional information not addressed in HPI [] GI: Denies abdominal pain, nausea, vomiting, bloody stools or diarrhea [] : Denies dysuria or hematuria [] Musculoskeletal: Denies back pain or joint pain [] Integument: Denies rash or skin lesions [] Neurologic: Reports headache, sensory changes [] Endocrine: Denies polyuria or polydipsia [] All other systems were reviewed and found to be within normal limits, except as documented in this note. (NHUNG DARBY MD) Current Medications Current Medications Current Medications Medications (Trade) Dose Ordered Sig/Nader Start Time Stop Time Status Last Admin Dose Admin Fentanyl Citrate (Fentanyl 2ml Vial) 50 mcg 1X ONCE 02/17/19 17:30 18 17:31 DC 19 18:02 50 MCG Hydralazine HCl (Apresoline Inj) 10 mg 1X ONCE 02/17/19 18:30 1819 18:31 DC 02/17/19 18:20 10 MG (DIONNA CARDONA DO) Allergies Allergies Allergies Coded Allergies Type Severity Reaction Last Updated Verified ceftriaxone Allergy Intermediate rash 11/16/18 Yes cephalexin Allergy Intermediate RASH 11/16/18 Yes levofloxacin Allergy Intermediate RASH 11/16/18 Yes morphine Allergy Intermediate tolerates Dilaudid & Percocet 09/11/16 Yes ciprofloxacin Adverse Reaction Intermediate TENDONITIS 11/16/18 Yes lovastatin Adverse Reaction Intermediate CAUSES MUSCLE SPASMS 09/11/16 Yes (DIONNA CARDONA DO) Physical Exam Physical Exam Constitutional: Well developed, well nourished, mild distress, non-toxic appearance. [] HENT: Normocephalic, atraumatic, bilateral external ears normal, oropharynx moist, no oral exudates, nose normal. [] Eyes: PERRLA, EOMI, conjunctiva normal, no discharge. [] Neck: Normal range of motion, no tenderness, supple, no stridor. [] Cardiovascular:Heart rate regular rhythm, no murmur [] Lungs & Thorax: Bilateral breath sounds clear to auscultation [] Abdomen: Bowel sounds normal, soft, no tenderness, no masses, no pulsatile masses. [] Skin: Warm, dry, no erythema, no rash. [] Back: No tenderness, no CVA tenderness. [] Extremities: No tenderness, no cyanosis, no clubbing, ROM intact, no edema. [] Neurologic: Alert and oriented X 3, no extremity weakness, decrease of sensation in the left site, NIH-4 Psychologic: Affect normal, judgement normal, mood normal. [] (NHUNG DARBY MD) Current Patient Data Vital Signs Vital Signs Date Time Temp Pulse Resp B/P (MAP) Pulse Ox O2 Delivery O2 Flow Rate FiO2 02/17/19 18:25 70 18 94 02/17/19 18:20 222/109 02/17/19 17:46 97.4 Room Air 97.4 (DIONNA CARDONA DO) Lab Values Laboratory Tests Test 02/17/19 17:16 02/17/19 17:17 White Blood Count 7.4 x10^3/uL (4.0-11.0) Red Blood Count 4.67 x10^6/uL (3.50-5.40) Hemoglobin 13.4 g/dL (12.0-15.5) Hematocrit 39.4 % (36.0-47.0) Mean Corpuscular Volume 84 fL (79-100) Mean Corpuscular Hemoglobin 29 pg (25-35) Mean Corpuscular Hemoglobin Concent 34 g/dL (31-37) Red Cell Distribution Width 16.4 % (11.5-14.5) H Platelet Count 198 x10^3/uL (140-400) Neutrophils (%) (Auto) 58 % (31-73) Lymphocytes (%) (Auto) 30 % (24-48) Monocytes (%) (Auto) 9 % (0-9) Eosinophils (%) (Auto) 2 % (0-3) Basophils (%) (Auto) 1 % (0-3) Neutrophils # (Auto) 4.3 x10^3/uL (1.8-7.7) Lymphocytes # (Auto) 2.2 x10^3/uL (1.0-4.8) Monocytes # (Auto) 0.7 x10^3/uL (0.0-1.1) Eosinophils # (Auto) 0.2 x10^3/uL (0.0-0.7) Basophils # (Auto) 0.1 x10^3/uL (0.0-0.2) Prothrombin Time 12.6 SEC (11.7-14.0) Prothrombin Time INR 1.0 (0.8-1.1) Sodium Level 133 mmol/L (136-145) L Potassium Level 3.5 mmol/L (3.5-5.1) Chloride Level 94 mmol/L (98-107) L Carbon Dioxide Level 28 mmol/L (21-32) Anion Gap 11 (6-14) Blood Urea Nitrogen 16 mg/dL (7-20) Creatinine 1.2 mg/dL (0.6-1.0) H Estimated GFR (Cockcroft-Gault) 44.7 BUN/Creatinine Ratio 13 (6-20) Glucose Level 165 mg/dL (70-99) H Lactic Acid Level 1.1 mmol/L (0.4-2.0) Calcium Level 10.2 mg/dL (8.5-10.1) H Magnesium Level 1.9 mg/dL (1.8-2.4) Total Bilirubin 0.4 mg/dL (0.2-1.0) Aspartate Amino Transferase (AST) 37 U/L (15-37) Alanine Aminotransferase (ALT) 29 U/L (14-59) Alkaline Phosphatase 79 U/L (46-116) Creatine Kinase 103 U/L (26-192) Troponin I Quantitative 0.590 ng/mL (0.000-0.055) GR-Vxb-I-Type Natriuretic Peptide 1819 pg/mL (0-124) H Total Protein 8.7 g/dL (6.4-8.2) H Albumin 3.6 g/dL (3.4-5.0) Albumin/Globulin Ratio 0.7 (1.0-1.7) L Thyroid Stimulating Hormone (TSH) 21.764 uIU/mL (0.358-3.74) H Glucose (Fingerstick) 154 mg/dL (70-99) H Laboratory Tests 02/17/19 17:16 Laboratory Tests 02/17/19 17:16 (DIONNA CARDONA DO) EKG EKG EKG interpreted by me. EKG at 1722 showed sinus rhythm at rate of 64, no acute ST and T-wave elevation. (NHUNG DARBY MD) Radiology/Procedures Radiology/Procedures [] (NHUNG DARBY MD) Course & Med Decision Making Course & Med Decision Making Pertinent Labs and Imaging studies are pending. Evaluation of patient in ER showed 68-year-old female patient with complaining of headache and problem with speech since yesterday. Patient was not a candidate for TPA starting symptom. Patient had NIH scale of 4. The blood pressure was more than 220 at arrival to ER and rated her headache 10 over 10. Patient treated with fentanyl and hydralazine with pending results of CT head and labs. Sign out given to at 1800 for further evaluation and final disposition. Discussed current findings and plan with patient and family, who acknowledge understanding and agreement. (NHUNG DARBY MD) Course & Med Decision Making Patient's stone normal with us prior to ADM earlier today. Patient with expressive aphasia the ED and left facial droop. NIH stroke score 4. Although, family members state patient has had left facial droop for a number of months. Patient was started on Cardene drip. Blood pressure improved to systolic less than 180. Symptoms remain. Patient with elevated troponin and BMP. No dyspnea, and sounds clear, EKG is nonacute. Antibiotics given for urinary tract infection. Dr. Elizabeth Martell to admit with cardiology and neurology services consulted. (DIONNA CARDONA DO) Dragon Disclaimer Dragon Disclaimer This electronic medical record was generated, in whole or in part, using a voice recognition dictation system. (NHUNG DARBY MD) Departure Departure Impression: Primary Impression: CVA (cerebral vascular accident) Additional Impressions: Expressive aphasia Hypertensive urgency, malignant Urinary tract infection Headache Disposition: 09 ADMITTED INPATIENT Condition: CRITICAL Referrals: MEI MOCK MD (PCP) NIHSS Stroke Scale NIH Stroke Scale: NIH Stroke Scale Response (Comments) Value Level of Consciousness: 0 Alert/Responsive 0 LOC Questions: 0 Answers both correctly 0 LOC Commands: 0 Performs both tasks 0 Best Gaze: 0 Normal 0 Visual: 0 No visual loss 0 Facial Palsy: 1 Minor paralysis (chronic) 1 Motor - Left Arm 0 No drift 0 Motor - Right Arm 0 No drift 0 Motor - Left Leg 0 No drift 0 Motor: Right Leg 0 No drift 0 Limb Ataxia: 0 Absent 0 Sensory: 1 Mid to moderate loss 1 Best Language: 0 Normal 0 Dysathria: 2 Severe 2 Extinction and Inattention: 0 Normal 0 Total 4 Problem Qualifiers NHUNG DARBY MD Feb 17, 2019 18:04 DIONNA CARDONA DO Feb 17, 2019 19:22
--- NOTE | 2019-02-17 18:04 | RAD ---
Exam: CT head INDICATION: Headache and dysphasia TECHNIQUE: Sequential axial images through the head were obtained without the administration of IV contrast. Comparisons: None FINDINGS: No focal parenchymal lesion or hemorrhage is identified. There is no midline shift or sulcal effacement. No acute vascular territory infarction is identified. Magdaleno-white distinction is preserved. The ventricular system is within normal limits without compression hydrocephalus. The basal cisterns are well maintained. The visualized portions of the paranasal sinuses and mastoid air cells are well-pneumatized. No acute fractures. IMPRESSION: No acute intracranial abnormality. Exposure: One or more of the following in the visualized dose reduction techniques were utilized for this examination: 1. Automated exposure control 2. Adjustment of the MA and/or KV according to patient size Use of iterative of reconstructive technique Electronically signed by: Julio Alberto MD (02/17/2019 6:01 PM) [facility]
--- NOTE | 2019-02-17 18:19 | RAD ---
Exam: Chest one view INDICATION: Dysphagia TECHNIQUE: Frontal view of the chest Comparisons: 11/16/2018 FINDINGS: The cardiomediastinal silhouette and pulmonary vessels are within normal limits. The lung and pleural spaces are clear. IMPRESSION: No acute cardiopulmonary process. Electronically signed by: Julio Alberto MD (02/17/2019 6:17 PM) [facility]
--- NOTE | 2019-02-17 18:33 | EKG ---
[facility] [address] [place] [address] Test Date: 2019-02-17 Test Time: 17:22:59 Pat Name: BENNY LIPSCOMB Department: Room: Gender: F Tso: : 1950 Requested By: NHUNG DARBY Order Number: [id number] Reading MD: Measurements Intervals [place] Rate: 64 P: CO: QRS: 22 QRSD: 96 T: 143 QT: 500 QTc: 521 Interpretive Statements IRREGULAR RHYTHM, NO P-WAVE FOUND T ABNORMALITY IN HIGH LATERAL LEADS PROLONGED QT ABNORMAL ECG RI6.01 Unconfirmed report No previous ECG available for comparison
[2019-02-17] MEDS: niCARdipine 50 MG in IV NORMAL SALINE 250ML 250 ML IV PRN ×2 (18:53→23:47)
[2019-02-17 18:55] LABS: BILIRUBIN,URINE NEGATIVE (NEG); CLARITY,URINE CLOUDY; COLOR,URINE YELLOW; NITRITE,URINE POSITIVE (NEG); PH,URINE 7.5; PROTEIN,URINE >=300 mg/dL (NEG-TRACE); UROBILINOGEN,URINE 0.2 mg/dL (0.2 mg/dL)
[2019-02-17 19:09] LABS: BACTERIA,URINE MANY /HPF (0-FEW); RBC,URINE OCC /HPF (0-2); WBC,URINE TNTC /HPF (0-4)
[2019-02-17 19:10] LABS: SQUAMOUS EPITHELIAL CELL,UR FEW /LPF
[2019-02-17] MEDS ORDERED: IV DEXTROSE 5 %-0.45 % NACL 500 ML IV ONE (19:15)
[2019-02-17] MEDS ORDERED: IV DEXTROSE 5 %-0.45 % NACL 1,000 ML IV ONE (19:15)
[2019-02-17] MEDS ORDERED: ONDANSETRON PF 4 MG/2 ML VIAL. IV PRN (19:15)
[2019-02-17] MEDS ORDERED: IOHEXOL 350 MG/ML 100 ML VIAL. IV ONE (19:30)
[2019-02-17] MEDS: DOXYCYCLINE HYCLATE 100 MG in IV DEXTROSE 5% 100ML 100 ML IV SCH (19:43)
[2019-02-17] MEDS ORDERED: CONTRAST GIVEN. MC PRN (19:45)
[2019-02-17 20:20] VITALS: BP 186/94
--- NOTE | 2019-02-17 20:20 | NUR ---
pt admitted to room 114 from ED at this time. able to scoot from ED gurney to ICU bed with x2 assist. pt alert to self, can answer simple yes/no questions but unable to respond appropriately when asked to elaborate from simple answers. strength equal in all extremities. slight facial droop noted to left side; according to ED and family, pt has had this since her last TIA in the past. Cardene gtt infusing, will titrate to keep SBP less than 180. and daughter at bedside; updated on plan of care, unit routines, NPO status, meds, labs and vitals. both voice understanding. will pass on in report. will continue to closely monitor.
--- NOTE | 2019-02-17 20:42 | RAD ---
CT angiography head and neck with contrast COMPARISON: CT head February 17, 2019. TECHNIQUE: Helical CT imaging of the head and neck with 3-D MIP and volume reconstructions of the arteries characterize vascular anatomy and pathology with 75 mL Omnipaque 350 intravenous contrast. HISTORY: Cerebrovascular accident. Altered mental status. Acute encephalopathy. Hypertension. Headaches. Stenosis calculations for CT, MR, and conventional angiography are based upon measurements of the distal ICA diameter in accordance with the NASCET methodology. Stenosis calculations for carotid ultrasound studies are derived from validated velocity criteria which are known to correlate with the NASCET methodology. PQRS statement: CT scans at this facility use dose reduction including either automated exposure control, iterative reconstructions, and /or weight based radiation dosing via mA and kV modification when appropriate to reduce radiation dose to as low as reasonably achievable. Neck findings: Aneurysm ascending thoracic aorta diameter 5 cm. Common ostium of the innominate left common carotid arteries from the aortic arch. No ostial stenosis from the aorta. Left vertebral artery is mildly dominant. Both vertebral arteries are somewhat hypoplastic. No plaque, stenosis, dissection, thrombosis or occlusion the vertebral arteries. Left carotid artery demonstrates minimal common carotid calcified plaque without stenosis. Bifurcation there is discontiguous partially calcified plaque contributing to 50 percent stenosis with a minimum luminal diameter 2.5 mm relatively normal diameter 5 mm of the proximal internal carotid. No dissection, thrombus or occlusion. Right carotid artery demonstrates mild calcified plaque common carotid without measurable stenosis. Discontiguous calcified plaque at the bifurcation and proximal internal carotid with minimal narrowing of 20 percent with minimal luminal diameter 4.5 mm relatively normal diameter distally of 5.5 mm the proximal internal carotid. Thyroid gland is absent. Cervical uncovertebral and facet osteophytes with neural foraminal stenoses. Lung apices are unremarkable. Head findings: Bilateral ethmoid and left maxillary fluid and opacification mucosal thickening. At the inferior circulation minimal calcified plaque right cavernous carotid without stenosis. Hypoplastic right A1 anterior cerebral artery segment, there is a patent anterior communicating artery. Left middle cerebral artery distal M1 segment and at the bifurcation and involving one of the M2 branches demonstrates a focal high-grade stenosis of greater than 70 percent likely due to soft plaque no filling defect evident. No stenosis of the right middle cerebral artery. No aneurysm evident. No thrombus. Posterior cerclage demonstrates small calibers of the vertebral and basilar arteries likely due to a combination of hypoplasia and plaque, there is irregularity suggestive of soft plaque contributing to moderate to high-grade stenosis of the mid to upper basilar artery terminus terminus which has a minimum luminal diameter of 1 mm relative to the more normal diameter of the vertebral arteries of 2.5 mm suggesting a stenosis of 50-70 percent. There are patent posterior communicating arteries. The cerebellar and posterior cerebral arteries are patent without focal high-grade stenosis, thrombus or occlusion. No aneurysm evident. IMPRESSION: 1. No large vessel occlusion. 2. 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 3. Left cervical carotid artery plaque with 50 percent stenosis at the bifurcation. 4. Right cervical carotid artery plaque with stenosis of less than 50 percent. 5. Ethmoid and maxillary sinus disease. 6. Fusiform ascending thoracic aorta aneurysm with a diameter 5.0 cm extends outside the [id number]. Electronically signed by: Samuel Eason MD (02/17/2019 8:39 PM) [facility]
[2019-02-17 21:00] VITALS: BP 172/78
[2019-02-17] MEDS ORDERED: fentaNYL PF VIAL 100 MCG/2 ML VIAL IV PRN (21:15)
--- NOTE | 2019-02-17 21:15 | NUR ---
Dr Martell called unit, asking for update on pt. new orders received and noted, family updated. will pass on in report. will continue to closely monitor.
[2019-02-17 22:00] VITALS: BP 158/72
[2019-02-17 23:00] VITALS: BP 147/82
[2019-02-18] VITALS (14 sets, daily range): BP systolic 119–147; BP diastolic 6–84
--- NOTE | 2019-02-18 00:30 | NUR ---
SBP now well under control with Cardene gtt, able to titrate down accordingly. pt now alert and oriented x4, answers all questions appropriately. able to recall previous inability to communicate, "I knew what to do say but I just couldn't get the words out." daughter later phoned unit, asking for update and told about pt's improving condition. pt still complaining of severe headache, Fentanyl IV given per PRN order. will continue to closely monitor.
[2019-02-18] MEDS ORDERED: METO-247 PO (01:52)
[2019-02-18] MEDS ORDERED: FURO20TA3 PO (01:52)
[2019-02-18] MEDS ORDERED: INSU200I4 SQ (01:52)
[2019-02-18] MEDS ORDERED: OMEP40CA5 PO (01:52)
[2019-02-18] MEDS ORDERED: POTA10TA12 PO (01:52)
[2019-02-18] MEDS ORDERED: ASPI-630 PO (01:52)
[2019-02-18] MEDS ORDERED: CRESTOR20 MG PO (01:52)
[2019-02-18] MEDS ORDERED: TRAZ-118 PO (01:52)
[2019-02-18] MEDS ORDERED: ESCITALOPRAM OX10 MG PO (01:52)
[2019-02-18 05:52] LABS: CALCIUM 9.7 mg/dL (8.5-10.1); CREATININE 1.2 mg/dL (0.6-1.0); GFR 44.7; POTASSIUM 3.7 mmol/L (3.5-5.1)
[2019-02-18 06:01] LABS: BASO % 1 % (0-3); EOS # 0.1 x10^3/uL (0.0-0.7); EOS % 1 % (0-3); HEMATOCRIT 38.5 % (36.0-47.0); HEMOGLOBIN 12.6 g/dL (12.0-15.5); LYMPH # 2.1 x10^3/uL (1.0-4.8); LYMPH % 26 % (24-48); MEAN CORPUSCULAR HEMOGLOBIN 28 pg (25-35); MEAN CORPUSCULAR HGB CONC 33 g/dL (31-37); MEAN CORPUSCULAR VOLUME 86 fL (79-100); MONO # 0.9 x10^3/uL (0.0-1.1); MONO % 11 % (0-9); NEUT # 4.8 x10^3/uL (1.8-7.7); NEUT % 61 % (31-73); PLATELET COUNT 203 x10^3/uL (140-400); RED BLOOD COUNT 4.48 x10^6/uL (3.50-5.40); RED CELL DISTRIBUTION WIDTH 16.4 % (11.5-14.5); WHITE BLOOD COUNT 7.9 x10^3/uL (4.0-11.0)
[2019-02-18] MEDS: ALBUTEROL SULFATE 2.5 MG/3 ML NEBU. NEB SCH ×4 (08:33→20:22)
[2019-02-18] MEDS ORDERED: ASPIRIN RECTAL 300 MG SUPP. PR PRN (08:45)
[2019-02-18] MEDS ORDERED: ACETAMINOPHEN 650 MG SUPP.RECT. PR PRN (08:45)
--- NOTE | 2019-02-18 08:48 | PDOC1 ---
History and Physical Date of Admission Date of Admission DATE: 02/18/19 TIME: 08:47 Identification/Chief Complaint Chief Complaint Aphasia Headache Source Source: Caregiver, Chart review, Patient History of Present Illness History of Present Illness Ms Lucas is a 68 year old female w/ PMHx Depression, Diabetes-Type II, Heart Disease, Hypertension, Hypothyroid, Uterine CA, KARENA who presents with complaining of headache and problem with speech. Patient history of migraine headache complaining of headache since yesterday and since last night impressive aphasia and confusion. Patient rated her pain 10 over 10 and states she had vomiting all night last night and was not able to eat or drink anything today. She denies chest pain and shortness of breath and fever and chills and neck pain. Troponin was 0.5 Past Medical History Cardiovascular: HTN, Hyperlipidemia, Other Pulmonary: Other CENTRAL NERVOUS SYSTEM: CVA GI: GERD Heme/Onc: Cancer Hepatobiliary: No pertinent hx Psych: Anxiety, Depression Musculoskeletal: Osteoarthritis Rheumatologic: No pertinent hx Infectious disease: No pertinent hx Renal/: No pertinent hx Endocrine: Diabetes, Hypothyroidism Past Surgical History Past Surgical History: Arthroscopy, Cholecystectomy, Hysterectomy Family History Family History: Heart Disease, Hypertension Social History Smoke: No ALCOHOL: none Drugs: None Current Problem List Problem List Problems Medical Problems: (1) CVA (cerebral vascular accident) Status: Acute (2) Elevated troponin I level Status: Acute (3) Expressive aphasia Status: Acute (4) Headache Status: Acute (5) Hypertensive urgency, malignant Status: Acute (6) Migraine headache Status: Acute (7) Urinary tract infection Status: Acute Current Medications Current Medications Current Medications Fentanyl Citrate (Fentanyl 2ml Vial) 50 mcg 1X ONCE IV Last administered on 02/17/19at 18:02; Start 02/17/19 at 17:30; Stop 02/17/19 at 17:31; Status DC Hydralazine HCl (Apresoline Inj) 10 mg 1X ONCE IVP Last administered on 02/17/19at 17:41; Start 02/17/19 at 17:30; Stop 02/17/19 at 17:31; Status DC Hydralazine HCl (Apresoline Inj) 10 mg 1X ONCE IVP Last administered on 02/17/19at 18:20; Start 02/17/19 at 18:30; Stop 02/17/19 at 18:31; Status DC Nicardipine HCl 50 mg/Sodium Chloride 250 ml @ 25 mls/hr CONT PRN IV SEE I/O RECORD Last administered on 02/17/19 23:53; Start 02/17/19 at 18:45 Ondansetron HCl (Zofran) 4 mg PRN Q8HRS PRN IV NAUSEA/VOMITING Last administered on 02/17/19 20:51; Start 02/17/19 at 19:15; Stop 02/18/19 at 19:14 Dextrose/Sodium Chloride 500 ml @ 0 mls/hr 1X ONCE IV ; Start 02/17/19 at 19:15; Stop 02/17/19 at 19:22; Status DC Dextrose/Sodium Chloride 1,000 ml @ 75 mls/hr 1X ONCE IV Last administered on 02/17/19 23:53; Start 02/17/19 at 19:15; Stop 02/18/19 at 08:34; Status DC Doxycycline Hyclate 100 mg/ Dextrose 100 ml @ 50 mls/hr Q12HR IV Last administered on 02/17/19at 19:43; Start 02/17/19 at 20:00 Iohexol (Omnipaque 350 Mg/ml) 75 ml 1X ONCE IV Last administered on 02/17/19at 20:24; Start 02/17/19 at 19:30; Stop 02/17/19 at 19:32; Status DC Info (CONTRAST GIVEN -- Rx MONITORING) 1 each PRN DAILY PRN MC SEE COMMENTS; Start 02/17/19 at 19:45; Stop 02/19/19 at 19:44 Fentanyl Citrate (Fentanyl 2ml Vial) 50 mcg PRN Q2HR PRN IV SEVERE PAIN 7-10 Last administered on 02/17/19at 23:53; Start 02/17/19 at 21:15 Albuterol Sulfate (Ventolin Neb Soln) 2.5 mg RTQID NEB Last administered on 02/18/19at 08:33; Start 02/18/19 at 08:00 Acetaminophen (Tylenol) 650 mg PRN Q6HRS PRN PO TEMP > 100.4F; Start 02/18/19 at 08:45; Status UNV Acetaminophen (Tylenol Supp) 650 mg PRN Q4HRS PRN ME TEMP > 100.4F; Start 02/18/19 at 08:45; Status UNV Aspirin (Ecotrin) 325 mg DAILYWBKFT PO ; Start 02/19/19 at 08:00; Status UNV Aspirin (Aspirin Rectal Supp) 300 mg PRN DAILY PRN ME IF UNABLE TO TAKE PO; Start 02/18/19 at 08:45; Status UNV Active Scripts Active Reported Omeprazole 40 Mg Capsule.dr 1 Cap PO DAILY Metoprolol Succinate ( Xl ) (Metoprolol Succinate) 100 Mg Tab.er.24h 1 Tab PO DAILY Crestor (Rosuvastatin Calcium) 20 Mg Tablet 20 Mg PO HS Furosemide 20 Mg Tablet 1 Tab PO DAILY 7 Days Potassium Chloride 10 Meq Tablet.er 10 Meq PO DAILY Aspirin 81 Mg Tab.chew 1 Tab PO DAILY Tresiba Flextouch U-200 (Insulin Degludec) 200 Unit/1 Ml Insuln.pen 64 Unit SQ HS Trazodone Hcl 50 Mg Tablet 1-2 Tab PO QHS Escitalopram Oxalate 10 Mg Tablet 1 Tab PO DAILY Ozempic (Semaglutide) 0.25 Mg/0.2 Ml Pen.injctr 0.5 Mg SQ QFR Levothyroxine Sodium 125 Mcg Tablet 250 Mcg PO DAILYAC Losartan-Hctz 100-12.5 Mg Tab (Losartan/Hydrochlorothiazide) 1 Each Tablet 1 Tab PO DAILY Allergies Allergies: Coded Allergies: ceftriaxone (Verified Allergy, Intermediate, rash, 11/16/18) TOLERATES ZOSYN cephalexin (Verified Allergy, Intermediate, RASH, 11/16/18) levofloxacin (Verified Allergy, Intermediate, RASH, 11/16/18) morphine (Verified Allergy, Intermediate, tolerates Dilaudid & Percocet, 09/11/16) ciprofloxacin (Verified Adverse Reaction, Intermediate, TENDONITIS, 11/16/18) lovastatin (Verified Adverse Reaction, Intermediate, CAUSES MUSCLE SPASMS, 09/11/16) ROS General: YES: Fatigue, Malaise; No: Chills, Night Sweats, Appetite, Other PSYCHOLOGICAL ROS: YES: Anxiety, Disorientation; No: Behavioral Disorder, Concentration difficultie, Decreased libido, Depression, Hallucinations, Hostility, Irritablity, Memory difficulties, Mood Swings, Obsessive thoughts, Physical abuse, Sexual abuse, Sleep disturbances, Suicidal ideation, Other Eyes: No Blurry vision, No Decreased vision, No Double vision, No Dry eyes, No Excessive tearing, No Eye Pain, No Itchy Eyes, No Loss of vision, No Photophobia, No Scotomata, No Uses contacts, No Uses glasses, No Other HEENT: YES: Heacaches; No: Visual Changes, Hearing change, Nasal congestion, Nasal discharge, Oral lesions, Sinus pain, Sore Throat, Epistaxis, Sneezing, Snoring, Tinnitus, Vertigo, Vocal changes, Other ALLERGY AND IMMUNOLOGY: No: Hives, Insect Bite Sensitivity, Itchy/Watery Eyes, Nasal Congestion, Post Nasal Drip, Seasonal Allergies, Other Hematological and Lymphatic: No: Bleeding Problems, Blood Clots, Blood Transfusions, Brusing, Night Sweats, Pallor, Swollen Lymph Nodes, Other ENDOCRINE: No: Breast Changes, Galactorrhea, Hair Pattern Changes, Hot Flashes, Malaise/lethargy, Mood Swings, Palpitations, Polydipsia/polyuria, Skin Changes, Temperature Intolerance, Unexpected Weight Changes, Other Breast: No New/Changing Breast Lumps, No Nipple changes, No Nipple discharge, No Other Respiratory: No: Cough, Hemoptysis, Orthopnea, Pleuritic Pain, Shortness of breath, SOB with excertion, Sputum Changes, Stridor, Tachypnea, Wheezing, Other Cardiovascular: No Chest Pain, No Palpitations, No Orthopnea, No Paroxysmal Noc. Dyspnea, No Edema, No Lt Headedness, No Other Gastrointestinal: Yes Nausea, Yes Vomiting, Yes Abdominal Pain; No Diarrhea, No Constipation, No Melena, No Hematochezia, No Other Genitourinary: YES Dysuria, YES Frequency, YES Pain, YES Flank Pain; No Incontinence, No Hematuria, No Retention, No Discharge, No Urgency, No Other, No , No , No , No , No , No , No Musculoskeletal: Yes Gait Disturbance; No Joint Pain, No Joint Stiffness, No Joint Swelling, No Muscle Pain, No Muscular Weakness, No Pain In:, No Swelling In:, No Other Neurological: Yes Bowel/Bladder ControlChng, Yes Confusion, Yes Dizziness, Yes Gait Disturbance, Yes Headaches, Yes Impaired Coord/balance, Yes Memory Loss; No Behavorial Changes, No Numbness/Tingling, No Seizures, No Speech Problems, No Tremors, No Visual Changes, No Weakness, No Other Skin: No Dry Skin, No Eczema, No Hair Changes, No Lumps, No Mole Changes, No Mottling, No Nail Changes, No Pruritus, No Rash, No Skin Lesion Changes, No Other, No Acne Physical Exam General: Alert, Oriented X3, Cooperative, No acute distress HEENT: Atraumatic, PERRLA, EOMI, Mucous membr. moist/pink Lungs: Clear to auscultation, Normal air movement Heart: S1S2, RRR Abdomen: Normal bowel sounds, Soft, No tenderness, No hepatosplenomegaly, No masses Rectal Exam: not examined Extremities: No clubbing, No cyanosis, No edema, Normal pulses, No tenderness/swelling Skin: No rashes, No breakdown, No significant lesion Neuro: Normal tone, Cranial nerves 3-12 NL, Reflexes 2+ Psych/Mental Status: Mood NL, Other (Slight confusion with repeated questions) Vitals Vitals Vital Signs Date Time Temp Pulse Resp B/P (MAP) Pulse Ox O2 Delivery O2 Flow Rate FiO2 02/18/19 08:33 94 Nasal Cannula 4.0 02/18/19 06:00 63 15 127/66 (86) 02/18/19 04:00 97.5 97.5 Labs Labs Laboratory Tests Test 02/17/19 17:16 02/17/19 17:17 02/17/19 18:40 02/17/19 22:00 White Blood Count 7.4 x10^3/uL (4.0-11.0) Red Blood Count 4.67 x10^6/uL (3.50-5.40) Hemoglobin 13.4 g/dL (12.0-15.5) Hematocrit 39.4 % (36.0-47.0) Mean Corpuscular Volume 84 fL (79-100) Mean Corpuscular Hemoglobin 29 pg (25-35) Mean Corpuscular Hemoglobin Concent 34 g/dL (31-37) Red Cell Distribution Width 16.4 % (11.5-14.5) Platelet Count 198 x10^3/uL (140-400) Neutrophils (%) (Auto) 58 % (31-73) Lymphocytes (%) (Auto) 30 % (24-48) Monocytes (%) (Auto) 9 % (0-9) Eosinophils (%) (Auto) 2 % (0-3) Basophils (%) (Auto) 1 % (0-3) Neutrophils # (Auto) 4.3 x10^3/uL (1.8-7.7) Lymphocytes # (Auto) 2.2 x10^3/uL (1.0-4.8) Monocytes # (Auto) 0.7 x10^3/uL (0.0-1.1) Eosinophils # (Auto) 0.2 x10^3/uL (0.0-0.7) Basophils # (Auto) 0.1 x10^3/uL (0.0-0.2) Prothrombin Time 12.6 SEC (11.7-14.0) Prothromb Time International Ratio 1.0 (0.8-1.1) Sodium Level 133 mmol/L (136-145) Potassium Level 3.5 mmol/L (3.5-5.1) Chloride Level 94 mmol/L (98-107) Carbon Dioxide Level 28 mmol/L (21-32) Anion Gap 11 (6-14) Blood Urea Nitrogen 16 mg/dL (7-20) Creatinine 1.2 mg/dL (0.6-1.0) Estimated GFR (Cockcroft-Gault) 44.7 BUN/Creatinine Ratio 13 (6-20) Glucose Level 165 mg/dL (70-99) Lactic Acid Level 1.1 mmol/L (0.4-2.0) Calcium Level 10.2 mg/dL (8.5-10.1) Magnesium Level 1.9 mg/dL (1.8-2.4) Total Bilirubin 0.4 mg/dL (0.2-1.0) Aspartate Amino Transf (AST/SGOT) 37 U/L (15-37) Alanine Aminotransferase (ALT/SGPT) 29 U/L (14-59) Alkaline Phosphatase 79 U/L (46-116) Creatine Kinase 103 U/L (26-192) Troponin I Quantitative 0.590 ng/mL (0.000-0.055) 0.369 ng/mL (0.000-0.055) JV-Npw-M-Type Natriuretic Peptide 1819 pg/mL (0-124) Total Protein 8.7 g/dL (6.4-8.2) Albumin 3.6 g/dL (3.4-5.0) Albumin/Globulin Ratio 0.7 (1.0-1.7) Thyroid Stimulating Hormone (TSH) 21.764 uIU/mL (0.358-3.74) Glucose (Fingerstick) 154 mg/dL (70-99) Urine Collection Type U cath Urine Color Yellow Urine Clarity Cloudy Urine pH 7.5 Urine Specific [place] 1.015 Urine Protein >=300 mg/dL (NEG-TRACE) Urine Glucose (UA) 100 mg/dL (NEG) Urine Ketones (Stick) Trace mg/dL (NEG) Urine Blood Trace (NEG) Urine Nitrite Positive (NEG) Urine Bilirubin Negative (NEG) Urine Urobilinogen Dipstick 0.2 mg/dL (0.2 mg/dL) Urine Leukocyte Esterase Large (NEG) Urine RBC Occ /HPF (0-2) Urine WBC Tntc /HPF (0-4) Urine Squamous Epithelial Cells Few /LPF Urine Bacteria Many /HPF (0-FEW) Urine Mucus Slight /LPF Test 02/18/19 05:10 02/18/19 05:25 White Blood Count 7.9 x10^3/uL (4.0-11.0) Red Blood Count 4.48 x10^6/uL (3.50-5.40) Hemoglobin 12.6 g/dL (12.0-15.5) Hematocrit 38.5 % (36.0-47.0) Mean Corpuscular Volume 86 fL (79-100) Mean Corpuscular Hemoglobin 28 pg (25-35) Mean Corpuscular Hemoglobin Concent 33 g/dL (31-37) Red Cell Distribution Width 16.4 % (11.5-14.5) Platelet Count 203 x10^3/uL (140-400) Neutrophils (%) (Auto) 61 % (31-73) Lymphocytes (%) (Auto) 26 % (24-48) Monocytes (%) (Auto) 11 % (0-9) Eosinophils (%) (Auto) 1 % (0-3) Basophils (%) (Auto) 1 % (0-3) Neutrophils # (Auto) 4.8 x10^3/uL (1.8-7.7) Lymphocytes # (Auto) 2.1 x10^3/uL (1.0-4.8) Monocytes # (Auto) 0.9 x10^3/uL (0.0-1.1) Eosinophils # (Auto) 0.1 x10^3/uL (0.0-0.7) Basophils # (Auto) 0.0 x10^3/uL (0.0-0.2) Troponin I Quantitative 0.376 ng/mL (0.000-0.055) Sodium Level 136 mmol/L (136-145) Potassium Level 3.7 mmol/L (3.5-5.1) Chloride Level 97 mmol/L (98-107) Carbon Dioxide Level 30 mmol/L (21-32) Anion Gap 9 (6-14) Blood Urea Nitrogen 17 mg/dL (7-20) Creatinine 1.2 mg/dL (0.6-1.0) Estimated GFR (Cockcroft-Gault) 44.7 Glucose Level 178 mg/dL (70-99) Calcium Level 9.7 mg/dL (8.5-10.1) Laboratory Tests Test 02/17/19 17:16 02/17/19 17:17 02/17/19 18:40 02/17/19 22:00 White Blood Count 7.4 x10^3/uL (4.0-11.0) Red Blood Count 4.67 x10^6/uL (3.50-5.40) Hemoglobin 13.4 g/dL (12.0-15.5) Hematocrit 39.4 % (36.0-47.0) Mean Corpuscular Volume 84 fL (79-100) Mean Corpuscular Hemoglobin 29 pg (25-35) Mean Corpuscular Hemoglobin Concent 34 g/dL (31-37) Red Cell Distribution Width 16.4 % (11.5-14.5) Platelet Count 198 x10^3/uL (140-400) Neutrophils (%) (Auto) 58 % (31-73) Lymphocytes (%) (Auto) 30 % (24-48) Monocytes (%) (Auto) 9 % (0-9) Eosinophils (%) (Auto) 2 % (0-3) Basophils (%) (Auto) 1 % (0-3) Neutrophils # (Auto) 4.3 x10^3/uL (1.8-7.7) Lymphocytes # (Auto) 2.2 x10^3/uL (1.0-4.8) Monocytes # (Auto) 0.7 x10^3/uL (0.0-1.1) Eosinophils # (Auto) 0.2 x10^3/uL (0.0-0.7) Basophils # (Auto) 0.1 x10^3/uL (0.0-0.2) Prothrombin Time 12.6 SEC (11.7-14.0) Prothromb Time International Ratio 1.0 (0.8-1.1) Sodium Level 133 mmol/L (136-145) Potassium Level 3.5 mmol/L (3.5-5.1) Chloride Level 94 mmol/L (98-107) Carbon Dioxide Level 28 mmol/L (21-32) Anion Gap 11 (6-14) Blood Urea Nitrogen 16 mg/dL (7-20) Creatinine 1.2 mg/dL (0.6-1.0) Estimated GFR (Cockcroft-Gault) 44.7 BUN/Creatinine Ratio 13 (6-20) Glucose Level 165 mg/dL (70-99) Lactic Acid Level 1.1 mmol/L (0.4-2.0) Calcium Level 10.2 mg/dL (8.5-10.1) Magnesium Level 1.9 mg/dL (1.8-2.4) Total Bilirubin 0.4 mg/dL (0.2-1.0) Aspartate Amino Transf (AST/SGOT) 37 U/L (15-37) Alanine Aminotransferase (ALT/SGPT) 29 U/L (14-59) Alkaline Phosphatase 79 U/L (46-116) Creatine Kinase 103 U/L (26-192) Troponin I Quantitative 0.590 ng/mL (0.000-0.055) 0.369 ng/mL (0.000-0.055) ZG-Jnz-L-Type Natriuretic Peptide 1819 pg/mL (0-124) Total Protein 8.7 g/dL (6.4-8.2) Albumin 3.6 g/dL (3.4-5.0) Albumin/Globulin Ratio 0.7 (1.0-1.7) Thyroid Stimulating Hormone (TSH) 21.764 uIU/mL (0.358-3.74) Glucose (Fingerstick) 154 mg/dL (70-99) Urine Collection Type U cath Urine Color Yellow Urine Clarity Cloudy Urine pH 7.5 Urine Specific [place] 1.015 Urine Protein >=300 mg/dL (NEG-TRACE) Urine Glucose (UA) 100 mg/dL (NEG) Urine Ketones (Stick) Trace mg/dL (NEG) Urine Blood Trace (NEG) Urine Nitrite Positive (NEG) Urine Bilirubin Negative (NEG) Urine Urobilinogen Dipstick 0.2 mg/dL (0.2 mg/dL) Urine Leukocyte Esterase Large (NEG) Urine RBC Occ /HPF (0-2) Urine WBC Tntc /HPF (0-4) Urine Squamous Epithelial Cells Few /LPF Urine Bacteria Many /HPF (0-FEW) Urine Mucus Slight /LPF Test 02/18/19 05:10 02/18/19 05:25 White Blood Count 7.9 x10^3/uL (4.0-11.0) Red Blood Count 4.48 x10^6/uL (3.50-5.40) Hemoglobin 12.6 g/dL (12.0-15.5) Hematocrit 38.5 % (36.0-47.0) Mean Corpuscular Volume 86 fL (79-100) Mean Corpuscular Hemoglobin 28 pg (25-35) Mean Corpuscular Hemoglobin Concent 33 g/dL (31-37) Red Cell Distribution Width 16.4 % (11.5-14.5) Platelet Count 203 x10^3/uL (140-400) Neutrophils (%) (Auto) 61 % (31-73) Lymphocytes (%) (Auto) 26 % (24-48) Monocytes (%) (Auto) 11 % (0-9) Eosinophils (%) (Auto) 1 % (0-3) Basophils (%) (Auto) 1 % (0-3) Neutrophils # (Auto) 4.8 x10^3/uL (1.8-7.7) Lymphocytes # (Auto) 2.1 x10^3/uL (1.0-4.8) Monocytes # (Auto) 0.9 x10^3/uL (0.0-1.1) Eosinophils # (Auto) 0.1 x10^3/uL (0.0-0.7) Basophils # (Auto) 0.0 x10^3/uL (0.0-0.2) Troponin I Quantitative 0.376 ng/mL (0.000-0.055) Sodium Level 136 mmol/L (136-145) Potassium Level 3.7 mmol/L (3.5-5.1) Chloride Level 97 mmol/L (98-107) Carbon Dioxide Level 30 mmol/L (21-32) Anion Gap 9 (6-14) Blood Urea Nitrogen 17 mg/dL (7-20) Creatinine 1.2 mg/dL (0.6-1.0) Estimated GFR (Cockcroft-Gault) 44.7 Glucose Level 178 mg/dL (70-99) Calcium Level 9.7 mg/dL (8.5-10.1) Images Images CT head - 1. No large vessel occlusion. 2. 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 3. Left cervical carotid artery plaque with 50 percent stenosis at the bifurcation. 4. Right cervical carotid artery plaque with stenosis of less than 50 percent. 5. Ethmoid and maxillary sinus disease. 6. Fusiform ascending thoracic aorta aneurysm with a diameter 5.0 cm extends outside the [id number]. VTE Prophylaxis Ordered VTE Prophylaxis Devices: Yes VTE Pharmacological Prophylaxi: Yes Assessment/Plan Assessment/Plan A/P: Aphasia - Stroke symptoms probably related to hypertensive encephalopathy or migraine, she says that she has had these before, but she does also have history of stroke. Acute encephalopathy - likely toxic/infectious from UTI with stents in place will continue antibiotics, also metabolic, likely related to CVA sx. Hypothyroidism likely plays a role as well Headache - likely HTN urgency related HTN urgency - BP under better control already Intracranial vascular disease, subcritical bilateral carotid disease Thoracic aortic aneurysm, cardiology follows Complicated UTI - will await cultures as she has uretal stents in place, needs to avoid seeding, will need longer term antibiotics. 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 Does not tolerate quinolones H/o uterine ca - in remission, has bladder stimulator in place, MRI contraindicated Elevated troponin - with AMINTA, elevated BP, likely stressed induced rather than NSTEMI, needs cardiology evaluation, regardless FEN - Bedside swallow eval pending PPX - Lovenox FULL CODE Dispo - initially to ICU for CVA symptoms. Improving, ok for CVC transfer YON RICHARDS MD Feb 18, 2019 08:48
[2019-02-18] MEDS: ASPIRIN ENTERIC COATED 325 MG TABLET.DR. PO SCH (09:00)
--- NOTE | 2019-02-18 09:42 | PDOC2 ---
NEUROLOGY CONSULT Date of Admission Date of Admission DATE: 02/18/19 TIME: 09:30 Reason for Consult Reason for Consult: Stroke symptoms Referring Physician Referring Physician: Dr. Vail PCP: Dr. Antunez Source Source: Caregiver (), Chart review, Patient History of Present Illness History of Present Illness The patient is a 68-year-old right-handed female with history of migraines and stroke who last night had severe headache, aphasia, and came in with a blood pressure of186/94. She says that she has had neurological symptoms with migraines in the past. She feels better this morning. Dr. Farrell followed her for a right anterior thalamic stroke in 2016 which caused diplopia, from which she recovered. There is no history of seizure. She admits that she has not been taking her blood pressure medications, cholesterol medication, nor aspirin. Past Medical History Cardiovascular: HTN, Other (Thoracic aortic aneurysm, cardiology follows) Pulmonary: Other ( sleep apnea) CENTRAL NERVOUS SYSTEM: CVA, Migraine GI: GERD Hepatobiliary: Other ( fatty liver disease) Psych: Anxiety, Depression Musculoskeletal: low back pain, Osteoarthritis Renal/: Urinary Incontinence ( bladder prolapse) Endocrine: Diabetes, Hypothyroidism Past Surgical History Past Surgical History: Cholecystectomy ( laparoscopic), Hysterectomy, Other ( abdominalcardiac cath, right knee, lithotripsy, D&C, bladder stimulator) Family History Family History: Cancer, CAD, CVA Social History Social History , no alcohol or tobacco, retired Current Medications Current Medications Current Medications Fentanyl Citrate (Fentanyl 2ml Vial) 50 mcg 1X ONCE IV Last administered on 02/17/19at 18:02; Start 02/17/19 at 17:30; Stop 02/17/19 at 17:31; Status DC Hydralazine HCl (Apresoline Inj) 10 mg 1X ONCE IVP Last administered on 02/17/19at 17:41; Start 02/17/19 at 17:30; Stop 02/17/19 at 17:31; Status DC Hydralazine HCl (Apresoline Inj) 10 mg 1X ONCE IVP Last administered on 02/17/19at 18:20; Start 02/17/19 at 18:30; Stop 02/17/19 at 18:31; Status DC Nicardipine HCl 50 mg/Sodium Chloride 250 ml @ 25 mls/hr CONT PRN IV SEE I/O RECORD Last administered on 02/17/19 23:53; Start 02/17/19 at 18:45 Ondansetron HCl (Zofran) 4 mg PRN Q8HRS PRN IV NAUSEA/VOMITING Last administe red on 02/17/19 20:51; Start 02/17/19 at 19:15; Stop 02/18/19 at 19:14 Dextrose/Sodium Chloride 500 ml @ 0 mls/hr 1X ONCE IV ; Start 02/17/19 at 19:15; Stop 02/17/19 at 19:22; Status DC Dextrose/Sodium Chloride 1,000 ml @ 75 mls/hr 1X ONCE IV Last administered on 02/17/19 23:53; Start 02/17/19 at 19:15; Stop 02/18/19 at 08:34; Status DC Doxycycline Hyclate 100 mg/ Dextrose 100 ml @ 50 mls/hr Q12HR IV Last administered on 02/17/19at 19:43; Start 02/17/19 at 20:00 Iohexol (Omnipaque 350 Mg/ml) 75 ml 1X ONCE IV Last administered on 02/17/19at 20:24; Start 02/17/19 at 19:30; Stop 02/17/19 at 19:32; Status DC Info (CONTRAST GIVEN -- Rx MONITORING) 1 each PRN DAILY PRN MC SEE COMMENTS; Start 02/17/19 at 19:45; Stop 02/19/19 at 19:44 Fentanyl Citrate (Fentanyl 2ml Vial) 50 mcg PRN Q2HR PRN IV SEVERE PAIN 7-10 Last administered on 02/17/19 23:53; Start 02/17/19 at 21:15 Albuterol Sulfate (Ventolin Neb Soln) 2.5 mg RTQID NEB Last administered on 02/18/19at 08:33; Start 02/18/19 at 08:00 Acetaminophen (Tylenol) 650 mg PRN Q6HRS PRN PO TEMP > 100.4F; Start 02/18/19 at 08:45 Acetaminophen (Tylenol Supp) 650 mg PRN Q4HRS PRN IA TEMP > 100.4F; Start 02/18/19 at 08:45 Aspirin (Ecotrin) 325 mg DAILYWBKFT PO ; Start 02/18/19 at 09:00 Aspirin (Aspirin Rectal Supp) 300 mg PRN DAILY PRN IA IF UNABLE TO TAKE PO; Start 02/18/19 at 08:45 Active Scripts Active Reported Omeprazole 40 Mg Capsule.dr 1 Cap PO DAILY Metoprolol Succinate ( Xl ) (Metoprolol Succinate) 100 Mg Tab.er.24h 1 Tab PO DAILY Crestor (Rosuvastatin Calcium) 20 Mg Tablet 20 Mg PO HS Furosemide 20 Mg Tablet 1 Tab PO DAILY 7 Days Potassium Chloride 10 Meq Tablet.er 10 Meq PO DAILY Aspirin 81 Mg Tab.chew 1 Tab PO DAILY Tresiba Flextouch U-200 (Insulin Degludec) 200 Unit/1 Ml Insuln.pen 64 Unit SQ HS Trazodone Hcl 50 Mg Tablet 1-2 Tab PO QHS Escitalopram Oxalate 10 Mg Tablet 1 Tab PO DAILY Ozempic (Semaglutide) 0.25 Mg/0.2 Ml Pen.injctr 0.5 Mg SQ QFR Levothyroxine Sodium 125 Mcg Tablet 250 Mcg PO DAILYAC Losartan-Hctz 100-12.5 Mg Tab (Losartan/Hydrochlorothiazide) 1 Each Tablet 1 Tab PO DAILY Allergies Allergies: Coded Allergies: ceftriaxone (Verified Allergy, Intermediate, rash, 11/16/18) TOLERATES ZOSYN cephalexin (Verified Allergy, Intermediate, RASH, 11/16/18) levofloxacin (Verified Allergy, Intermediate, RASH, 11/16/18) morphine (Verified Allergy, Intermediate, tolerates Dilaudid & Percocet, 09/11/16) ciprofloxacin (Verified Adverse Reaction, Intermediate, TENDONITIS, 11/16/18) lovastatin (Verified Adverse Reaction, Intermediate, CAUSES MUSCLE SPASMS, 09/11/16) ROS Review of System Negative for fever, chills, weight loss, shortness of breath, chest pain, indigestion, hematochezia, melena, and dysuria. Full 14-point review of systems is negative. Physical Exam Physical Examination General: Well-developed, well-nourished white female in no acute distress HEENT: Normocephalic and�atraumatic.�Temporal arteries�pulsatile and nontender. Neck: Supple without bruit, no meningismus� Musculoskeletal: Stability:�see neurologic. Gait exam:�see neurologic. Tone:�see neurologic.�Strength:�see neurologic.� Neurological: Mental Status:�orientation, memory, attention span/concentration, language, fund of knowledge normal, except still a little hesitant with her speech output. Cran ial Nerves:�Pupils equal and reactive to light, extraocular movements are�intact, visual calvo are full to confrontation. Facial sensation is normal. There is no facial asymmetry. Vestibulo-ocular reflex is intact. Palate elevates and tongue protrudes in midline. All other cranial related problems are negative except as mentioned before.�Reflexes:�1+ and symmetric with flexor plantar responses. Motor:�5/5 strength with normal tone and bulk. Coordination:�Finger- nose finger and jbts-yb-jxkv testing are normal. Rapid alternating movements and fine finger movements are intact. Gait:� not tested. Sensory:� stocking loss.� Vitals VITALS Vital Signs Date Time Temp Pulse Resp B/P (MAP) Pulse Ox O2 Delivery O2 Flow Rate FiO2 02/18/19 08:33 94 Nasal Cannula 4.0 02/18/19 06:00 63 15 127/66 (86) 02/18/19 04:00 97.5 97.5 Labs Labs Laboratory Tests Test 02/17/19 17:16 02/17/19 17:17 02/17/19 18:40 02/17/19 22:00 White Blood Count 7.4 x10^3/uL (4.0-11.0) Red Blood Count 4.67 x10^6/uL (3.50-5.40) Hemoglobin 13.4 g/dL (12.0-15.5) Hematocrit 39.4 % (36.0-47.0) Mean Corpuscular Volume 84 fL (79-100) Mean Corpuscular Hemoglobin 29 pg (25-35) Mean Corpuscular Hemoglobin Concent 34 g/dL (31-37) Red Cell Distribution Width 16.4 % (11.5-14.5) Platelet Count 198 x10^3/uL (140-400) Neutrophils (%) (Auto) 58 % (31-73) Lymphocytes (%) (Auto) 30 % (24-48) Monocytes (%) (Auto) 9 % (0-9) Eosinophils (%) (Auto) 2 % (0-3) Basophils (%) (Auto) 1 % (0-3) Neutrophils # (Auto) 4.3 x10^3/uL (1.8-7.7) Lymphocytes # (Auto) 2.2 x10^3/uL (1.0-4.8) Monocytes # (Auto) 0.7 x10^3/uL (0.0-1.1) Eosinophils # (Auto) 0.2 x10^3/uL (0.0-0.7) Basophils # (Auto) 0.1 x10^3/uL (0.0-0.2) Prothrombin Time 12.6 SEC (11.7-14.0) Prothromb Time International Ratio 1.0 (0.8-1.1) Sodium Level 133 mmol/L (136-145) Potassium Level 3.5 mmol/L (3.5-5.1) Chloride Level 94 mmol/L (98-107) Carbon Dioxide Level 28 mmol/L (21-32) Anion Gap 11 (6-14) Blood Urea Nitrogen 16 mg/dL (7-20) Creatinine 1.2 mg/dL (0.6-1.0) Estimated GFR (Cockcroft-Gault) 44.7 BUN/Creatinine Ratio 13 (6-20) Glucose Level 165 mg/dL (70-99) Lactic Acid Level 1.1 mmol/L (0.4-2.0) Calcium Level 10.2 mg/dL (8.5-10.1) Magnesium Level 1.9 mg/dL (1.8-2.4) Total Bilirubin 0.4 mg/dL (0.2-1.0) Aspartate Amino Transf (AST/SGOT) 37 U/L (15-37) Alanine Aminotransferase (ALT/SGPT) 29 U/L (14-59) Alkaline Phosphatase 79 U/L (46-116) Creatine Kinase 103 U/L (26-192) Troponin I Quantitative 0.590 ng/mL (0.000-0.055) 0.369 ng/mL (0.000-0.055) NW-Rmj-M-Type Natriuretic Peptide 1819 pg/mL (0-124) Total Protein 8.7 g/dL (6.4-8.2) Albumin 3.6 g/dL (3.4-5.0) Albumin/Globulin Ratio 0.7 (1.0-1.7) Thyroid Stimulating Hormone (TSH) 21.764 uIU/mL (0.358-3.74) Glucose (Fingerstick) 154 mg/dL (70-99) Urine Collection Type U cath Urine Color Yellow Urine Clarity Cloudy Urine pH 7.5 Urine Specific [place] 1.015 Urine Protein >=300 mg/dL (NEG-TRACE) Urine Glucose (UA) 100 mg/dL (NEG) Urine Ketones (Stick) Trace mg/dL (NEG) Urine Blood Trace (NEG) Urine Nitrite Positive (NEG) Urine Bilirubin Negative (NEG) Urine Urobilinogen Dipstick 0.2 mg/dL (0.2 mg/dL) Urine Leukocyte Esterase Large (NEG) Urine RBC Occ /HPF (0-2) Urine WBC Tntc /HPF (0-4) Urine Squamous Epithelial Cells Few /LPF Urine Bacteria Many /HPF (0-FEW) Urine Mucus Slight /LPF Test 02/18/19 05:10 02/18/19 05:25 White Blood Count 7.9 x10^3/uL (4.0-11.0) Red Blood Count 4.48 x10^6/uL (3.50-5.40) Hemoglobin 12.6 g/dL (12.0-15.5) Hematocrit 38.5 % (36.0-47.0) Mean Corpuscular Volume 86 fL (79-100) Mean Corpuscular Hemoglobin 28 pg (25-35) Mean Corpuscular Hemoglobin Concent 33 g/dL (31-37) Red Cell Distribution Width 16.4 % (11.5-14.5) Platelet Count 203 x10^3/uL (140-400) Neutrophils (%) (Auto) 61 % (31-73) Lymphocytes (%) (Auto) 26 % (24-48) Monocytes (%) (Auto) 11 % (0-9) Eosinophils (%) (Auto) 1 % (0-3) Basophils (%) (Auto) 1 % (0-3) Neutrophils # (Auto) 4.8 x10^3/uL (1.8-7.7) Lymphocytes # (Auto) 2.1 x10^3/uL (1.0-4.8) Monocytes # (Auto) 0.9 x10^3/uL (0.0-1.1) Eosinophils # (Auto) 0.1 x10^3/uL (0.0-0.7) Basophils # (Auto) 0.0 x10^3/uL (0.0-0.2) Troponin I Quantitative 0.376 ng/mL (0.000-0.055) Sodium Level 136 mmol/L (136-145) Potassium Level 3.7 mmol/L (3.5-5.1) Chloride Level 97 mmol/L (98-107) Carbon Dioxide Level 30 mmol/L (21-32) Anion Gap 9 (6-14) Blood Urea Nitrogen 17 mg/dL (7-20) Creatinine 1.2 mg/dL (0.6-1.0) Estimated GFR (Cockcroft-Gault) 44.7 Glucose Level 178 mg/dL (70-99) Calcium Level 9.7 mg/dL (8.5-10.1) Laboratory Tests Test 02/17/19 17:16 02/17/19 17:17 02/17/19 18:40 02/17/19 22:00 White Blood Count 7.4 x10^3/uL (4.0-11.0) Red Blood Count 4.67 x10^6/uL (3.50-5.40) Hemoglobin 13.4 g/dL (12.0-15.5) Hematocrit 39.4 % (36.0-47.0) Mean Corpuscular Volume 84 fL (79-100) Mean Corpuscular Hemoglobin 29 pg (25-35) Mean Corpuscular Hemoglobin Concent 34 g/dL (31-37) Red Cell Distribution Width 16.4 % (11.5-14.5) Platelet Count 198 x10^3/uL (140-400) Neutrophils (%) (Auto) 58 % (31-73) Lymphocytes (%) (Auto) 30 % (24-48) Monocytes (%) (Auto) 9 % (0-9) Eosinophils (%) (Auto) 2 % (0-3) Basophils (%) (Auto) 1 % (0-3) Neutrophils # (Auto) 4.3 x10^3/uL (1.8-7.7) Lymphocytes # (Auto) 2.2 x10^3/uL (1.0-4.8) Monocytes # (Auto) 0.7 x10^3/uL (0.0-1.1) Eosinophils # (Auto) 0.2 x10^3/uL (0.0-0.7) Basophils # (Auto) 0.1 x10^3/uL (0.0-0.2) Prothrombin Time 12.6 SEC (11.7-14.0) Prothromb Time International Ratio 1.0 (0.8-1.1) Sodium Level 133 mmol/L (136-145) Potassium Level 3.5 mmol/L (3.5-5.1) Chloride Level 94 mmol/L (98-107) Carbon Dioxide Level 28 mmol/L (21-32) Anion Gap 11 (6-14) Blood Urea Nitrogen 16 mg/dL (7-20) Creatinine 1.2 mg/dL (0.6-1.0) Estimated GFR (Cockcroft-Gault) 44.7 BUN/Creatinine Ratio 13 (6-20) Glucose Level 165 mg/dL (70-99) Lactic Acid Level 1.1 mmol/L (0.4-2.0) Calcium Level 10.2 mg/dL (8.5-10.1) Magnesium Level 1.9 mg/dL (1.8-2.4) Total Bilirubin 0.4 mg/dL (0.2-1.0) Aspartate Amino Transf (AST/SGOT) 37 U/L (15-37) Alanine Aminotransferase (ALT/SGPT) 29 U/L (14-59) Alkaline Phosphatase 79 U/L (46-116) Creatine Kinase 103 U/L (26-192) Troponin I Quantitative 0.590 ng/mL (0.000-0.055) 0.369 ng/mL (0.000-0.055) IK-Yna-S-Type Natriuretic Peptide 1819 pg/mL (0-124) Total Protein 8.7 g/dL (6.4-8.2) Albumin 3.6 g/dL (3.4-5.0) Albumin/Globulin Ratio 0.7 (1.0-1.7) Thyroid Stimulating Hormone (TSH) 21.764 uIU/mL (0.358-3.74) Glucose (Fingerstick) 154 mg/dL (70-99) Urine Collection Type U cath Urine Color Yellow Urine Clarity Cloudy Urine pH 7.5 Urine Specific [place] 1.015 Urine Protein >=300 mg/dL (NEG-TRACE) Urine Glucose (UA) 100 mg/dL (NEG) Urine Ketones (Stick) Trace mg/dL (NEG) Urine Blood Trace (NEG) Urine Nitrite Positive (NEG) Urine Bilirubin Negative (NEG) Urine Urobilinogen Dipstick 0.2 mg/dL (0.2 mg/dL) Urine Leukocyte Esterase Large (NEG) Urine RBC Occ /HPF (0-2) Urine WBC Tntc /HPF (0-4) Urine Squamous Epithelial Cells Few /LPF Urine Bacteria Many /HPF (0-FEW) Urine Mucus Slight /LPF Test 02/18/19 05:10 02/18/19 05:25 White Blood Count 7.9 x10^3/uL (4.0-11.0) Red Blood Count 4.48 x10^6/uL (3.50-5.40) Hemoglobin 12.6 g/dL (12.0-15.5) Hematocrit 38.5 % (36.0-47.0) Mean Corpuscular Volume 86 fL (79-100) Mean Corpuscular Hemoglobin 28 pg (25-35) Mean Corpuscular Hemoglobin Concent 33 g/dL (31-37) Red Cell Distribution Width 16.4 % (11.5-14.5) Platelet Count 203 x10^3/uL (140-400) Neutrophils (%) (Auto) 61 % (31-73) Lymphocytes (%) (Auto) 26 % (24-48) Monocytes (%) (Auto) 11 % (0-9) Eosinophils (%) (Auto) 1 % (0-3) Basophils (%) (Auto) 1 % (0-3) Neutrophils # (Auto) 4.8 x10^3/uL (1.8-7.7) Lymphocytes # (Auto) 2.1 x10^3/uL (1.0-4.8) Monocytes # (Auto) 0.9 x10^3/uL (0.0-1.1) Eosinophils # (Auto) 0.1 x10^3/uL (0.0-0.7) Basophils # (Auto) 0.0 x10^3/uL (0.0-0.2) Troponin I Quantitative 0.376 ng/mL (0.000-0.055) Sodium Level 136 mmol/L (136-145) Potassium Level 3.7 mmol/L (3.5-5.1) Chloride Level 97 mmol/L (98-107) Carbon Dioxide Level 30 mmol/L (21-32) Anion Gap 9 (6-14) Blood Urea Nitrogen 17 mg/dL (7-20) Creatinine 1.2 mg/dL (0.6-1.0) Estimated GFR (Cockcroft-Gault) 44.7 Glucose Level 178 mg/dL (70-99) Calcium Level 9.7 mg/dL (8.5-10.1) Images Images CT head INDICATION: Headache and dysphasia TECHNIQUE: Sequential axial images through the head were obtained without the administration of IV contrast. Comparisons: None FINDINGS: No focal parenchymal lesion or hemorrhage is identified. There is no midline shift or sulcal effacement. No acute vascular territory infarction is identified. Madgaleno-white distinction is preserved. The ventricular system is within normal limits without compression hydrocephalus. The basal cisterns are well maintained. The visualized portions of the paranasal sinuses and mastoid air cells are well-pneumatized. No acute fractures. IMPRESSION: No acute intracranial abnormality. CT angiography head and neck with contrast COMPARISON: CT head February 17, 2019. TECHNIQUE: Helical CT imaging of the head and neck with 3-D MIP and volume reconstructions of the arteries characterize vascular anatomy and pathology with 75 mL Omnipaque 350 intravenous contrast. HISTORY: Cerebrovascular accident. Altered mental status. Acute encephalopathy. Hypertension. Headaches. Stenosis calculations for CT, MR, and conventional angiography are based upon measurements of the distal ICA diameter in accordance with the NASCET methodology. Stenosis calculations for carotid ultrasound studies are derived from validated velocity criteria which are known to correlate with the NASCET methodology. PQRS statement: CT scans at this facility use dose reduction including either automated exposure control, iterative reconstructions, and /or weight based radiation dosing via mA and kV modification when appropriate to reduce radiation dose to as low as reasonably achievable. Neck findings: Aneurysm ascending thoracic aorta diameter 5 cm. Common ostium of the innominate left common carotid arteries from the aortic arch. No ostial stenosis from the aorta. Left vertebral artery is mildly dominant. Both vertebral arteries are somewhat hypoplastic. No plaque, stenosis, dissection, thrombosis or occlusion the vertebral arteries. Left carotid artery demonstrates minimal common carotid calcified plaque without stenosis. Bifurcation there is discontiguous partially calcified plaque contributing to 50 percent stenosis with a minimum luminal diameter 2.5 mm relatively normal diameter 5 mm of the proximal internal carotid. No dissection, thrombus or occlusion. Right carotid artery demonstrates mild calcified plaque common carotid without measurable stenosis. Discontiguous calcified plaque at the bifurcation and proximal internal carotid with minimal narrowing of 20 percent with minimal luminal diameter 4.5 mm relatively normal diameter distally of 5.5 mm the proximal internal carotid. Thyroid gland is absent. Cervical uncovertebral and facet osteophytes with neural foraminal stenoses. Lung apices are unremarkable. Head findings: Bilateral ethmoid and left maxillary fluid and opacification mucosal thickening. At the inferior circulation minimal calcified plaque right cavernous carotid without stenosis. Hypoplastic right A1 anterior cerebral artery segment, there is a patent anterior communicating artery. Left middle cerebral artery distal M1 segment and at the bifurcation and involving one of the M2 branches demonstrates a focal high-grade stenosis of greater than 70 percent likely due to soft plaque no filling defect evident. No stenosis of the right middle cerebral artery. No aneurysm evident. No thrombus. Posterior cerclage demonstrates small calibers of the vertebral and basilar arteries likely due to a combination of hypoplasia and plaque, there is irregularity suggestive of soft plaque contributing to moderate to high-grade stenosis of the mid to upper basilar artery terminus terminus which has a minimum luminal diameter of 1 mm relative to the more normal diameter of the vertebral arteries of 2.5 mm suggesting a stenosis of 50-70 percent. There are patent posterior communicating arteries. The cerebellar and posterior cerebral arteries are patent without focal high-grade stenosis, thrombus or occlusion. No aneurysm evident. IMPRESSION: 1. No large vessel occlusion. 2. 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 3. Left cervical carotid artery plaque with 50 percent stenosis at the bifurcation. 4. Right cervical carotid artery plaque with stenosis of less than 50 percent. 5. Ethmoid and maxillary sinus disease. 6. Fusiform ascending thoracic aorta aneurysm with a diameter 5.0 cm extends outside the [id number]. 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 Intracranial vascular disease, subcritical bilateral carotid disease Noncompliance Thoracic aortic aneurysm, cardiology follows. Recommendations: She says that she cannot have MRI due to bladder stimulator, I'll repeat her head CT tomorrow Echocardiogram resume aspirin treatment of hypertension statin depending on lipid profile results Fully discussed with patient and her . Thank you for letting me help with the patient's care. WEST RICH MD Feb 18, 2019 09:42
[2019-02-18] MEDS ORDERED: METOPROLOL SUCC 24HR ER 100 MG TAB.ER.24H. PO SCH (10:45)
--- NOTE | 2019-02-18 10:53 | CARD ---
MR#: [id number] Date of Study: 02/18/2019 Ordering Physician: WEST RICH, Referring Physician: WEST RICH, Tech: APPROVED REPORT EXAM: Two-dimensional and M-mode echocardiogram with Doppler and color Doppler. INDICATION CVA/TIA Dyspnea Chest Pain RISK FACTORS Hypertension Hyperlipidemia Diabetes 2D DIMENSIONS RVDd2.8 (2.9-3.5cm)Left Atrium(2D)3.1 (1.6-4.0cm) IVSd1.5 (0.7-1.1cm)Aortic Root(2D)3.4 (2.0-3.7cm) LVDd5.1 (3.9-5.9cm)LVOT Diameter2.0 (1.8-2.4cm) PWd1.3 (0.7-1.1cm)LVDs3.3 (2.5-4.0cm) FS (%) 35.1 %SV77.9 ml LVEF(%)64.1 (>50%) Aortic Valve AoV Peak Min.197.4cm/sAoV VTI34.4cm AO Peak GR.15.6mmHgLVOT VTI 28.06cm AO Mean GR.9mmHg Mitral Valve MV E Tpoavqko22.7cm/sMV DECEL [id number] MV A Nafodnym25.4cm/sE/A Ratio0.7 TDI Lateral E' P. V6.69cm/sMedial E' P. V5.34cm/s E/Lateral E'10.0E/Medial E'12.5 Tricuspid Valve TR P. Rehrypro898zn/sRAP [id number] TR Peak Gr.56hpUlWGHW65xrWq Pulmonary Vein S1 Wmxmjcks08.8cm/sS2 Ojzbrnga75.80cm/s D2 Ytxsupvu11.8cm/sPVa [id number] LEFT VENTRICLE The left ventricle is normal size. There is mild to moderate concentric left ventricular hypertrophy. The left ventricular systolic function is normal. The Ejection Fraction is 55-60%. There is normal L V segmental wall motion. Transmitral Doppler flow pattern is Grade I-abnormal relaxation pattern. RIGHT VENTRICLE The right ventricle is normal size. There is normal right ventricular wall thickness. The right ventr icular systolic function is normal. ATRIA The left atrium is mildly dilated. The right atrium size is normal. The interatrial septum is intact with no evidence for an atrial septal defect or patent foramen ovale as noted on 2-D or Doppler imagi ng. AORTIC VALVE The aortic valve is normal in structure and function. Doppler and Color Flow revealed trace aortic re gurgitation. There is no significant aortic valvular stenosis. MITRAL VALVE The mitral valve is normal in structure and function. There is no evidence of mitral valve prolapse. There is no mitral valve stenosis. Doppler and Color-flow revealed trace mitral regurgitation. TRICUSPID VALVE The tricuspid valve is normal in structure and function. Doppler and Color Flow revealed trace tricus pid regurgitation. There is no tricuspid valve prolapse or vegetation. There is no tricuspid valve st enosis. PULMONIC VALVE The pulmonary valve is normal in structure and function. Doppler and Color Flow revealed trace pulmon ic valvular regurgitation. GREAT VESSELS The aortic root is normal in size. The ascending aorta is Moderately dilated. The IVC is normal in si ze and collapses >50% with inspiration. PERICARDIAL EFFUSION There is no evidence of significant pericardial effusion. Critical Notification Critical Value: No <Conclusion> The left ventricular systolic function is normal. The Ejection Fraction is 55-60%. There is normal LV segmental wall motion. Transmitral Doppler flow pattern is Grade I-abnormal relaxation pattern. Trace mitral regurgitation. Trace tricuspid regurgitation. The ascending aorta is Moderately dilated. There is no evidence of significant pericardial effusion. Signed by : Thomas Dow, Electronically Approved : 02/18/2019 10:53:24
[2019-02-18] MEDS ORDERED: ASPIRIN CHEWABLE 81 MG TABLET. PO SCH (11:00)
[2019-02-18] MEDS: PIPERACILLIN/TAZOBACTAM 3.375 GM in IV NORMAL SALINE 50ML 50 ML IV SCH ×3 (11:00→23:56)
[2019-02-18] MEDS: CITALOPRAM 20 MG TABLET. PO SCH (12:27)
[2019-02-18] MEDS: PANTOPRAZOLE 40 MG TABLET.DR. PO SCH (12:27)
[2019-02-18] MEDS: POTASSIUM CHLORIDE 10 MEQ TABLET.ER. PO SCH (12:28)
[2019-02-18] MEDS: DOXYCYCLINE HYCLATE 100 MG in IV DEXTROSE 5% 100ML 100 ML IV SCH ×2 (12:30→20:39)
[2019-02-18] MEDS: LEVOTHYROXINE 125 MCG TABLET PO SCH (12:31)
[2019-02-18] MEDS: ACETAMINOPHEN 325 MG TABLET. PO PRN ×2 (12:42→20:34)
--- NOTE | 2019-02-18 15:07 | PDOC2 ---
GYPSY MACK INSOLE CEMENTER 02/18/19 1507: CARDIAC CONSULT DATE OF CONSULT Date of Consult DATE: 02/18/19 TIME: 14:55 REASON FOR CONSULT Reason for Consult: CHF Elevated troponin Hypertension REFERRING PHYSICIAN Referring Physician: Dr. Langley SOURCE Source: Chart review, Patient HISTORY OF PRESENT ILLNESS HISTORY OF PRESENT ILLNESS This is a 68 yo female who presented secondary to PEREZ and speech difficulties. Reports onset of migraine and speech difficulty on Monday. Persisted throughout the day. Resolved overnight, but eventually came back Monday so she came to the ED for further evaluation and treatment. Blood pressure significantly elevated upon arrival. Has history of CVA in addition to neurological defects related to migraines and elevated blood pressure. Patient has not take blood pressure mediations in "weeks". No specific reasons other than "just don't take". Did not run out of medications; has supply at home. Antihypertensive therapy resumed. Blood pressure now controlled and aphasia has resolved. PAST MEDICAL HISTORY Past Medical History Cardiovascular: HTN, Hyperlipidemia, Other (dilated ascending aorta) Pulmonary: Other (KARENA with CPAP) CENTRAL NERVOUS SYSTEM: CVA GI: GERD Heme/Onc: Cancer (uterine ) Hepatobiliary: No pertinent hx Psych: Anxiety, Depression Musculoskeletal: Osteoarthritis Infectious disease: No pertinent hx ENT: No pertinent hx Renal/: UTI Endocrine: Diabetes, Hypothyroidism Dermatology: No pertinent hx PAST SURGICAL HISTORY Past Surgical History Cholecystectomy, Other (right knee sx), hysterectomy FAMILY HISTORY Family History: Heart Disease, Hypertension SOCIAL HISTORY Social History Smoke: No ALCOHOL: none Drugs: None Lives: with Family CURRENT MEDICATIONS CURRENT MEDICATIONS Current Medications Medications (Trade) Dose Ordered Sig/Nader Route PRN Reason Start Time Stop Time Status Last Admin Dose Admin Fentanyl Citrate (Fentanyl 2ml Vial) 50 mcg 1X ONCE IV 02/17/19 17:30 02/17/19 17:31 DC 02/17/19 18:02 Hydralazine HCl (Apresoline Inj) 10 mg 1X ONCE IVP 02/17/19 17:30 02/17/19 17:31 DC 02/17/19 17:41 Hydralazine HCl (Apresoline Inj) 10 mg 1X ONCE IVP 02/17/19 18:30 02/17/19 18:31 DC 02/17/19 18:20 Nicardipine HCl 50 mg/Sodium Chloride 250 ml @ 25 mls/hr CONT PRN IV SEE I/O RECORD 02/17/19 18:45 02/17/19 23:53 Ondansetron HCl (Zofran) 4 mg PRN Q8HRS PRN IV NAUSEA/VOMITING 02/17/19 19:15 02/18/19 19:14 02/17/19 20:51 Dextrose/Sodium Chloride 1,000 ml @ 75 mls/hr 1X ONCE IV 02/17/19 19:15 02/18/19 08:34 DC 02/17/19 23:53 Doxycycline Hyclate 100 mg/ Dextrose 100 ml @ 50 mls/hr Q12HR IV 02/17/19 20:00 02/18/19 12:37 Iohexol (Omnipaque 350 Mg/ml) 75 ml 1X ONCE IV 02/17/19 19:30 02/17/19 19:32 DC 02/17/19 20:24 Fentanyl Citrate (Fentanyl 2ml Vial) 50 mcg PRN Q2HR PRN IV SEVERE PAIN 7-10 02/17/19 21:15 02/17/19 23:53 Albuterol Sulfate (Ventolin Neb Soln) 2.5 mg RTQID NEB 02/18/19 08:00 02/18/19 12:42 Acetaminophen (Tylenol) 650 mg PRN Q6HRS PRN PO TEMP > 100.4F 02/18/19 08:45 02/18/19 12:46 Piperacillin Sod/ Tazobactam Sod 3.375 gm/Sodium Chloride 50 ml @ 100 mls/hr Q6HRS IV 02/18/19 11:00 02/18/19 14:47 Levothyroxine Sodium (Synthroid) 250 mcg DAILY06 PO 02/18/19 10:45 02/18/19 12:37 Metoprolol Succinate (Toprol Xl) 100 mg DAILY PO 02/18/19 10:45 02/18/19 12:46 Potassium Chloride (Klor-Con) 10 meq DAILY PO 02/18/19 11:00 02/18/19 12:29 Citalopram Hydrobromide (CeleXA) 20 mg DAILY PO 02/18/19 11:00 02/18/19 12:29 Pantoprazole Sodium (Protonix) 40 mg DAILYAC PO 02/18/19 11:30 02/18/19 12:29 ALLERGIES ALLERGIES: Coded Allergies: ceftriaxone (Verified Allergy, Intermediate, rash, 11/16/18) TOLERATES ZOSYN cephalexin (Verified Allergy, Intermediate, RASH, 11/16/18) levofloxacin (Verified Allergy, Intermediate, RASH, 11/16/18) morphine (Verified Allergy, Intermediate, tolerates Dilaudid & Percocet, 09/11/16) ciprofloxacin (Verified Adverse Reaction, Intermediate, TENDONITIS, 11/16/18) lovastatin (Verified Adverse Reaction, Intermediate, CAUSES MUSCLE SPASMS, 09/11/16) ROS Review of System 14 point ROS conducted with pertinent positives noted above in HPI. PHYSICAL EXAM PHYSICAL EXAM General: Alert, Oriented X3, Cooperative, No acute distress HEENT: Mucous membr. moist/pink Lungs: Other Heart: Regular rate (SR), Normal S1, Normal S2, Other (2/6 systolic murmur to LLS border) Abdomen: Soft, No tenderness, Other (obese) Extremities: No cyanosis, Other (trace to 1+ pitting leg edema) Skin: No breakdown, No significant lesion Neuro: Normal speech, Sensation intact Psych/Mental Status: Mental status NL, Mood NL MUSCULOSKELETAL: Osteoarthritic changes both hands VITALS/I&O VITALS/I&O: Vital Signs Date Time Temp Pulse Resp B/P (MAP) Pulse Ox O2 Delivery O2 Flow Rate FiO2 02/18/19 12:46 56 144/62 02/18/19 12:42 94 Nasal Cannula 4.0 02/18/19 07:00 98.3 98.3 02/18/19 06:00 15 I & O 02/17/19 02/17/19 02/18/19 14:59 22:59 06:59 Intake Total 100 ml 898.1 ml Output Total 525 ml 620 ml Balance -425 ml 278.1 ml LABS Lab: Laboratory Tests Test 02/17/19 17:16 02/17/19 17:17 02/17/19 18:40 02/17/19 22:00 White Blood Count 7.4 x10^3/uL (4.0-11.0) Red Blood Count 4.67 x10^6/uL (3.50-5.40) Hemoglobin 13.4 g/dL (12.0-15.5) Hematocrit 39.4 % (36.0-47.0) Mean Corpuscular Volume 84 fL (79-100) Mean Corpuscular Hemoglobin 29 pg (25-35) Mean Corpuscular Hemoglobin Concent 34 g/dL (31-37) Red Cell Distribution Width 16.4 % (11.5-14.5) H Platelet Count 198 x10^3/uL (140-400) Neutrophils (%) (Auto) 58 % (31-73) Lymphocytes (%) (Auto) 30 % (24-48) Monocytes (%) (Auto) 9 % (0-9) Eosinophils (%) (Auto) 2 % (0-3) Basophils (%) (Auto) 1 % (0-3) Neutrophils # (Auto) 4.3 x10^3/uL (1.8-7.7) Lymphocytes # (Auto) 2.2 x10^3/uL (1.0-4.8) Monocytes # (Auto) 0.7 x10^3/uL (0.0-1.1) Eosinophils # (Auto) 0.2 x10^3/uL (0.0-0.7) Basophils # (Auto) 0.1 x10^3/uL (0.0-0.2) Prothrombin Time 12.6 SEC (11.7-14.0) Prothrombin Time INR 1.0 (0.8-1.1) Sodium Level 133 mmol/L (136-145) L Potassium Level 3.5 mmol/L (3.5-5.1) Chloride Level 94 mmol/L (98-107) L Carbon Dioxide Level 28 mmol/L (21-32) Anion Gap 11 (6-14) Blood Urea Nitrogen 16 mg/dL (7-20) Creatinine 1.2 mg/dL (0.6-1.0) H Estimated GFR (Cockcroft-Gault) 44.7 BUN/Creatinine Ratio 13 (6-20) Glucose Level 165 mg/dL (70-99) H Lactic Acid Level 1.1 mmol/L (0.4-2.0) Calcium Level 10.2 mg/dL (8.5-10.1) H Magnesium Level 1.9 mg/dL (1.8-2.4) Total Bilirubin 0.4 mg/dL (0.2-1.0) Aspartate Amino Transferase (AST) 37 U/L (15-37) Alanine Aminotransferase (ALT) 29 U/L (14-59) Alkaline Phosphatase 79 U/L (46-116) Creatine Kinase 103 U/L (26-192) Troponin I Quantitative 0.590 ng/mL (0.000-0.055) 0.369 ng/mL (0.000-0.055) WA-Uga-B-Type Natriuretic Peptide 1819 pg/mL (0-124) H Total Protein 8.7 g/dL (6.4-8.2) H Albumin 3.6 g/dL (3.4-5.0) Albumin/Globulin Ratio 0.7 (1.0-1.7) L Thyroid Stimulating Hormone (TSH) 21.764 uIU/mL (0.358-3.74) H Glucose (Fingerstick) 154 mg/dL (70-99) H Urine Collection Type U cath Urine Color Yellow Urine Clarity Cloudy Urine pH 7.5 Urine Specific [place] 1.015 Urine Protein >=300 mg/dL (NEG-TRACE) Urine Glucose (UA) 100 mg/dL (NEG) Urine Ketones (Stick) Trace mg/dL (NEG) Urine Blood Trace (NEG) Urine Nitrite Positive (NEG) Urine Bilirubin Negative (NEG) Urine Urobilinogen Dipstick 0.2 mg/dL (0.2 mg/dL) Urine Leukocyte Esterase Large (NEG) Urine RBC Occ /HPF (0-2) Urine WBC Tntc /HPF (0-4) Urine Squamous Epithelial Cells Few /LPF Urine Bacteria Many /HPF (0-FEW) Urine Mucus Slight /LPF Test 02/18/19 05:10 02/18/19 05:25 02/18/19 12:18 White Blood Count 7.9 x10^3/uL (4.0-11.0) Red Blood Count 4.48 x10^6/uL (3.50-5.40) Hemoglobin 12.6 g/dL (12.0-15.5) Hematocrit 38.5 % (36.0-47.0) Mean Corpuscular Volume 86 fL (79-100) Mean Corpuscular Hemoglobin 28 pg (25-35) Mean Corpuscular Hemoglobin Concent 33 g/dL (31-37) Red Cell Distribution Width 16.4 % (11.5-14.5) H Platelet Count 203 x10^3/uL (140-400) Neutrophils (%) (Auto) 61 % (31-73) Lymphocytes (%) (Auto) 26 % (24-48) Monocytes (%) (Auto) 11 % (0-9) H Eosinophils (%) (Auto) 1 % (0-3) Basophils (%) (Auto) 1 % (0-3) Neutrophils # (Auto) 4.8 x10^3/uL (1.8-7.7) Lymphocytes # (Auto) 2.1 x10^3/uL (1.0-4.8) Monocytes # (Auto) 0.9 x10^3/uL (0.0-1.1) Eosinophils # (Auto) 0.1 x10^3/uL (0.0-0.7) Basophils # (Auto) 0.0 x10^3/uL (0.0-0.2) Troponin I Quantitative 0.376 ng/mL (0.000-0.055) Sodium Level 136 mmol/L (136-145) Potassium Level 3.7 mmol/L (3.5-5.1) Chloride Level 97 mmol/L (98-107) L Carbon Dioxide Level 30 mmol/L (21-32) Anion Gap 9 (6-14) Blood Urea Nitrogen 17 mg/dL (7-20) Creatinine 1.2 mg/dL (0.6-1.0) H Estimated GFR (Cockcroft-Gault) 44.7 Glucose Level 178 mg/dL (70-99) H Calcium Level 9.7 mg/dL (8.5-10.1) Glucose (Fingerstick) 220 mg/dL (70-99) H Laboratory Tests 02/17/19 17:16 02/18/19 05:10 Laboratory Tests 02/17/19 17:16 02/18/19 05:25 ECHOCARDIOGRAM ECHOCARDIOGRAM <Conclusion> The left ventricular systolic function is normal. The Ejection Fraction is 55-60%. There is normal LV segmental wall motion. Transmitral Doppler flow pattern is Grade I-abnormal relaxation pattern. Trace mitral regurgitation. Trace tricuspid regurgitation. The ascending aorta is Moderately dilated. There is no evidence of significant pericardial effusion. DATE: 02/18/19 1049 ASSESSMENT/PLAN ASSESSMENT/PLAN 1. Aphagia; neuro following. Resolve. CT negative for acute changes. Unable to habe MRI 2. Hypertensive urgency; now better controlled. Secondary to med noncompliance 3. Mild troponin elevation; Peak 0.590. most probably type II, demand ischemia in the setting of #2. Echo with preserved LV systolic function. CP free. 4. DM2; as per PCP 5. H/o CVA 6. Hyperlipidemia; statin 7. Hypothyroidism; TSH 21. 8. Noncompliance; hasn't taken meds in weeks 9. KARENA; compliant with CPAP Recommendations Resume home antiHTN therapy Discussed/encouraged medical compliance Supportive care Consider outpatient ischemic evaluation KYA ARREOLA MD 02/18/19 2020: CARDIAC CONSULT ASSESSMENT/PLAN ASSESSMENT/PLAN Patient seen and examined. Agree with ROAD SUPERVISOR's assessment and plan. Hypertensive emergency secondary to non compliance with meds BP better controlled since admission Stroke like symptoms probably hypertensive encephalopathy Neurology following 2D echo showed normal LVF Slight troponin elevation probably demand ischemia Plan ischemic evaluation with MPI as outpatient Thank you for your consultation GYPSY MACK APRN Feb 18, 2019 15:07 KYA ARREOLA MD Feb 18, 2019 20:20
[2019-02-18] MEDS ORDERED: DEXTROSE 50% 25 GM / 50ML DISP.SYRIN. IV PRN (15:15)
[2019-02-18] MEDS ORDERED: IV DEXTROSE 5% 250 ML BAG. IV PRN (15:15)
[2019-02-18] MEDS: INSULIN LISPRO 300 UNITS/3 ML VIAL. SQ SCH ×2 (15:43→20:47)
[2019-02-18] MEDS: ENOXAPARIN 40 MG/0.4 ML SYRINGE. SQ SCH (15:46)
--- NOTE | 2019-02-18 16:31 | NUR ---
SS following for discharge planning. SS reviewed pt chart. Pt is from home with spouse and is currently requiring oxygen. PT recommended home healthcare at discharge. SS will continue to follow for discharge planning.
--- NOTE | 2019-02-18 19:02 | NUR ---
Echo/carotid doppler at bedside complete. Motor ,sensory and cerebellar functions intact after BP control shortly after admission. Minimal assist to chair w use of cane. Steady on feet. Mishra cath removed...voiced extreme discomfort so replaced w winsome wick after patient discussed w Dr Berrios. Eating 1/2 each meal w/o nausea. Drinking fluids well. Condition stable. Trans to [facility] w phone,CPAP,clothes and hospital acquired items. informed of room change
[2019-02-18] MEDS: LACTOBACILLUS RHAMNOSUS GG 1 CAPSULE. PO SCH (20:33)
[2019-02-18] MEDS ORDERED: INSULIN GLARGINE 300 UNITS/3 ML INSULN.PEN. SQ SCH (21:00)
[2019-02-18] MEDS ORDERED: ATORVASTATIN CALCIUM 40 MG TABLET. PO SCH (21:00)
[2019-02-18] MEDS ORDERED: traZODone 50 MG TABLET. PO SCH (21:00)
[2019-02-19 03:05] VITALS: BP 149/59
[2019-02-19] MEDS: LEVOTHYROXINE 125 MCG TABLET PO SCH (05:22)
[2019-02-19] MEDS: PIPERACILLIN/TAZOBACTAM 3.375 GM in IV NORMAL SALINE 50ML 50 ML IV SCH ×2 (05:23→12:29)
[2019-02-19 07:00] VITALS: BP 150/65
[2019-02-19 07:18] LABS: CALCIUM 9.4 mg/dL (8.5-10.1); CREATININE 1.3 mg/dL (0.6-1.0); GFR 40.7; POTASSIUM 3.3 mmol/L (3.5-5.1)
[2019-02-19 07:19] LABS: CHOLESTEROL/HDL RATIO 7.3
[2019-02-19] MEDS: INSULIN LISPRO 300 UNITS/3 ML VIAL. SQ SCH ×3 (07:30→17:52)
[2019-02-19] MEDS: ALBUTEROL SULFATE 2.5 MG/3 ML NEBU. NEB SCH ×3 (08:00→16:37)
--- NOTE | 2019-02-19 08:28 | PDOC ---
PROGRESS NOTES Chief Complaint Chief Complaint A/P: Aphasia - Stroke symptoms probably related to hypertensive encephalopathy or migraine, she says that she has had these before, but she does also have history of stroke. Acute encephalopathy - likely toxic/infectious from UTI with stents in place will continue antibiotics, also metabolic, likely related to CVA sx. Hypothyroidism likely plays a role as well Headache - likely HTN urgency related HTN urgency - BP under better control already Intracranial vascular disease, subcritical bilateral carotid disease Thoracic aortic aneurysm, cardiology follows Complicated UTI - will await cultures as she has uretal stents in place, needs to avoid seeding, will need longer term antibiotics. External catheter ordered Obstructive uropathy with nephrolithiasis - uretal stent placement AMINTA - not improving yet Hypothyroidism - TSH 21, will cont meds, weight based for now, she admits to compliance difficulties since she lost her home nurse H/o e coli and proteus bacteremia - will cont empiric antibiotics Morbid obesity - counseled Multiple drug allergies - previously tolerated zosyn and omnicef well. Does not tolerate quinolones H/o uterine ca - in remission, has bladder stimulator in place, MRI contraindicated Elevated troponin - with AMINTA, elevated BP, likely stressed induced rather than NSTEMI, needs cardiology evaluation, regardless FEN - Bedside swallow eval pending PPX - Lovenox FULL CODE Dispo - initially to ICU for CVA symptoms. Improving, ok for CVC transfer History of Present Illness History of Present Illness Ms Lucas is a 68 year old female w/ PMHx Depression, Diabetes-Type II, Heart Disease, Hypertension, Hypothyroid, Uterine CA, KARENA who presents with complaining of headache and problem with speech. Patient history of migraine headache complaining of headache since yesterday and since last night impressive aphasia and confusion. Patient rated her pain 10 over 10 and states she had vomiting all night last night and was not able to eat or drink anything today. She denies chest pain and shortness of breath and fever and chills and neck pain. Troponin was 0.5. Seen by cardiology, echo without wall motion abnormalities, likely demand ischemia. Seen by neurology, unable to have MRI due to bladder stimulator. Past 24 hours has been sinus yesica in the 40s. I have discussed her compliance difficulties and she does not take her home metoprolol. No CP or SOB. Confusion improved per her and . Not worked with PT/OT yet. She understands she definitely needs a home nurse. Has f/u with urology for her stent removal on 03/05/19. Vitals Vitals Vital Signs Date Time Temp Pulse Resp B/P (MAP) Pulse Ox O2 Delivery O2 Flow Rate FiO2 02/19/19 07:00 97.6 45 16 150/65 (93) 91 Room Air 97.6 02/18/19 12:42 4.0 Physical Exam General: Alert, Oriented X3, Cooperative, No acute distress Lungs: Clear Abdomen: Normal bowel sounds, Soft, No tenderness, No hepatosplenomegaly, No masses Extremities: No clubbing, No cyanosis, No edema, Normal pulses, No tenderness/swelling Skin: No rashes, No breakdown, No significant lesion Labs LABS Laboratory Tests Test 02/18/19 12:18 02/18/19 20:38 02/19/19 06:04 02/19/19 07:41 Glucose (Fingerstick) 220 mg/dL (70-99) 133 mg/dL (70-99) 116 mg/dL (70-99) Sodium Level 138 mmol/L (136-145) Potassium Level 3.3 mmol/L (3.5-5.1) Chloride Level 99 mmol/L (98-107) Carbon Dioxide Level 31 mmol/L (21-32) Anion Gap 8 (6-14) Blood Urea Nitrogen 19 mg/dL (7-20) Creatinine 1.3 mg/dL (0.6-1.0) Estimated GFR (Cockcroft-Gault) 40.7 Glucose Level 120 mg/dL (70-99) Calcium Level 9.4 mg/dL (8.5-10.1) Triglycerides Level 221 mg/dL (0-150) Cholesterol Level 277 mg/dL (0-200) LDL Cholesterol, Calculated 195 mg/dL (0-100) VLDL Cholesterol, Calculated 44 mg/dL (0-40) Non-HDL Cholesterol Calculated 239 mg/dL (0-129) HDL Cholesterol 38 mg/dL (40-60) Cholesterol/HDL Ratio 7.3 Assessment and Plan Assessmemt and Plan Problems Medical Problems: (1) CVA (cerebral vascular accident) Status: Acute (2) Elevated troponin I level Status: Acute (3) Expressive aphasia Status: Acute (4) Headache Status: Acute (5) Hypertensive urgency, malignant Status: Acute (6) Migraine headache Status: Acute (7) Urinary tract infection Status: Acute Comment Review of Relevant I have reviewed the following items jeffrey (where applicable) has been applied. Labs Laboratory Tests Test 02/17/19 17:16 02/17/19 17:17 02/17/19 18:40 02/17/19 22:00 White Blood Count 7.4 x10^3/uL (4.0-11.0) Red Blood Count 4.67 x10^6/uL (3.50-5.40) Hemoglobin 13.4 g/dL (12.0-15.5) Hematocrit 39.4 % (36.0-47.0) Mean Corpuscular Volume 84 fL (79-100) Mean Corpuscular Hemoglobin 29 pg (25-35) Mean Corpuscular Hemoglobin Concent 34 g/dL (31-37) Red Cell Distribution Width 16.4 % (11.5-14.5) Platelet Count 198 x10^3/uL (140-400) Neutrophils (%) (Auto) 58 % (31-73) Lymphocytes (%) (Auto) 30 % (24-48) Monocytes (%) (Auto) 9 % (0-9) Eosinophils (%) (Auto) 2 % (0-3) Basophils (%) (Auto) 1 % (0-3) Neutrophils # (Auto) 4.3 x10^3/uL (1.8-7.7) Lymphocytes # (Auto) 2.2 x10^3/uL (1.0-4.8) Monocytes # (Auto) 0.7 x10^3/uL (0.0-1.1) Eosinophils # (Auto) 0.2 x10^3/uL (0.0-0.7) Basophils # (Auto) 0.1 x10^3/uL (0.0-0.2) Prothrombin Time 12.6 SEC (11.7-14.0) Prothromb Time International Ratio 1.0 (0.8-1.1) Sodium Level 133 mmol/L (136-145) Potassium Level 3.5 mmol/L (3.5-5.1) Chloride Level 94 mmol/L (98-107) Carbon Dioxide Level 28 mmol/L (21-32) Anion Gap 11 (6-14) Blood Urea Nitrogen 16 mg/dL (7-20) Creatinine 1.2 mg/dL (0.6-1.0) Estimated GFR (Cockcroft-Gault) 44.7 BUN/Creatinine Ratio 13 (6-20) Glucose Level 165 mg/dL (70-99) Lactic Acid Level 1.1 mmol/L (0.4-2.0) Calcium Level 10.2 mg/dL (8.5-10.1) Magnesium Level 1.9 mg/dL (1.8-2.4) Total Bilirubin 0.4 mg/dL (0.2-1.0) Aspartate Amino Transf (AST/SGOT) 37 U/L (15-37) Alanine Aminotransferase (ALT/SGPT) 29 U/L (14-59) Alkaline Phosphatase 79 U/L (46-116) Creatine Kinase 103 U/L (26-192) Troponin I Quantitative 0.590 ng/mL (0.000-0.055) 0.369 ng/mL (0.000-0.055) MV-Pmb-J-Type Natriuretic Peptide 1819 pg/mL (0-124) Total Protein 8.7 g/dL (6.4-8.2) Albumin 3.6 g/dL (3.4-5.0) Albumin/Globulin Ratio 0.7 (1.0-1.7) Thyroid Stimulating Hormone (TSH) 21.764 uIU/mL (0.358-3.74) Glucose (Fingerstick) 154 mg/dL (70-99) Urine Collection Type U cath Urine Color Yellow Urine Clarity Cloudy Urine pH 7.5 Urine Specific [place] 1.015 Urine Protein >=300 mg/dL (NEG-TRACE) Urine Glucose (UA) 100 mg/dL (NEG) Urine Ketones (Stick) Trace mg/dL (NEG) Urine Blood Trace (NEG) Urine Nitrite Positive (NEG) Urine Bilirubin Negative (NEG) Urine Urobilinogen Dipstick 0.2 mg/dL (0.2 mg/dL) Urine Leukocyte Esterase Large (NEG) Urine RBC Occ /HPF (0-2) Urine WBC Tntc /HPF (0-4) Urine Squamous Epithelial Cells Few /LPF Urine Bacteria Many /HPF (0-FEW) Urine Mucus Slight /LPF Test 02/18/19 05:10 02/18/19 05:25 02/18/19 12:18 02/18/19 20:38 White Blood Count 7.9 x10^3/uL (4.0-11.0) Red Blood Count 4.48 x10^6/uL (3.50-5.40) Hemoglobin 12.6 g/dL (12.0-15.5) Hematocrit 38.5 % (36.0-47.0) Mean Corpuscular Volume 86 fL (79-100) Mean Corpuscular Hemoglobin 28 pg (25-35) Mean Corpuscular Hemoglobin Concent 33 g/dL (31-37) Red Cell Distribution Width 16.4 % (11.5-14.5) Platelet Count 203 x10^3/uL (140-400) Neutrophils (%) (Auto) 61 % (31-73) Lymphocytes (%) (Auto) 26 % (24-48) Monocytes (%) (Auto) 11 % (0-9) Eosinophils (%) (Auto) 1 % (0-3) Basophils (%) (Auto) 1 % (0-3) Neutrophils # (Auto) 4.8 x10^3/uL (1.8-7.7) Lymphocytes # (Auto) 2.1 x10^3/uL (1.0-4.8) Monocytes # (Auto) 0.9 x10^3/uL (0.0-1.1) Eosinophils # (Auto) 0.1 x10^3/uL (0.0-0.7) Basophils # (Auto) 0.0 x10^3/uL (0.0-0.2) Troponin I Quantitative 0.376 ng/mL (0.000-0.055) Sodium Level 136 mmol/L (136-145) Potassium Level 3.7 mmol/L (3.5-5.1) Chloride Level 97 mmol/L (98-107) Carbon Dioxide Level 30 mmol/L (21-32) Anion Gap 9 (6-14) Blood Urea Nitrogen 17 mg/dL (7-20) Creatinine 1.2 mg/dL (0.6-1.0) Estimated GFR (Cockcroft-Gault) 44.7 Glucose Level 178 mg/dL (70-99) Calcium Level 9.7 mg/dL (8.5-10.1) Glucose (Fingerstick) 220 mg/dL (70-99) 133 mg/dL (70-99) Test 02/19/19 06:04 02/19/19 07:41 Sodium Level 138 mmol/L (136-145) Potassium Level 3.3 mmol/L (3.5-5.1) Chloride Level 99 mmol/L (98-107) Carbon Dioxide Level 31 mmol/L (21-32) Anion Gap 8 (6-14) Blood Urea Nitrogen 19 mg/dL (7-20) Creatinine 1.3 mg/dL (0.6-1.0) Estimated GFR (Cockcroft-Gault) 40.7 Glucose Level 120 mg/dL (70-99) Calcium Level 9.4 mg/dL (8.5-10.1) Triglycerides Level 221 mg/dL (0-150) Cholesterol Level 277 mg/dL (0-200) LDL Cholesterol, Calculated 195 mg/dL (0-100) VLDL Cholesterol, Calculated 44 mg/dL (0-40) Non-HDL Cholesterol Calculated 239 mg/dL (0-129) HDL Cholesterol 38 mg/dL (40-60) Cholesterol/HDL Ratio 7.3 Glucose (Fingerstick) 116 mg/dL (70-99) Laboratory Tests Test 02/18/19 12:18 02/18/19 20:38 02/19/19 06:04 02/19/19 07:41 Glucose (Fingerstick) 220 mg/dL (70-99) 133 mg/dL (70-99) 116 mg/dL (70-99) Sodium Level 138 mmol/L (136-145) Potassium Level 3.3 mmol/L (3.5-5.1) Chloride Level 99 mmol/L (98-107) Carbon Dioxide Level 31 mmol/L (21-32) Anion Gap 8 (6-14) Blood Urea Nitrogen 19 mg/dL (7-20) Creatinine 1.3 mg/dL (0.6-1.0) Estimated GFR (Cockcroft-Gault) 40.7 Glucose Level 120 mg/dL (70-99) Calcium Level 9.4 mg/dL (8.5-10.1) Triglycerides Level 221 mg/dL (0-150) Cholesterol Level 277 mg/dL (0-200) LDL Cholesterol, Calculated 195 mg/dL (0-100) VLDL Cholesterol, Calculated 44 mg/dL (0-40) Non-HDL Cholesterol Calculated 239 mg/dL (0-129) HDL Cholesterol 38 mg/dL (40-60) Cholesterol/HDL Ratio 7.3 Microbiology 02/17/19 Blood Culture - Preliminary, Resulted NO GROWTH AFTER 1 DAY Medications Current Medications Fentanyl Citrate (Fentanyl 2ml Vial) 50 mcg 1X ONCE IV Last administered on 02/17/19 18:02; Start 02/17/19 at 17:30; Stop 02/17/19 at 17:31; Status DC Hydralazine HCl (Apresoline Inj) 10 mg 1X ONCE IVP Last administered on 02/17/19at 17:41; Start 02/17/19 at 17:30; Stop 02/17/19 at 17:31; Status DC Hydralazine HCl (Apresoline Inj) 10 mg 1X ONCE IVP Last administered on 02/17/19at 18:20; Start 02/17/19 at 18:30; Stop 02/17/19 at 18:31; Status DC Nicardipine HCl 50 mg/Sodium Chloride 250 ml @ 25 mls/hr CONT PRN IV SEE I/O RECORD Last administered on 02/17/19at 23:53; Start 02/17/19 at 18:45; Stop 02/18/19 at 18:16; Status DC Ondansetron HCl (Zofran) 4 mg PRN Q8HRS PRN IV NAUSEA/VOMITING Last administered on 02/17/19at 20:51; Start 02/17/19 at 19:15; Stop 02/18/19 at 19 :14; Status DC Dextrose/Sodium Chloride 500 ml @ 0 mls/hr 1X ONCE IV ; Start 02/17/19 at 19:15; Stop 02/17/19 at 19:22; Status DC Dextrose/Sodium Chloride 1,000 ml @ 75 mls/hr 1X ONCE IV Last administered on 02/17/19at 23:53; Start 02/17/19 at 19:15; Stop 02/18/19 at 08:34; Status DC Doxycycline Hyclate 100 mg/ Dextrose 100 ml @ 50 mls/hr Q12HR IV Last administered on 02/18/19at 20:39; Start 02/17/19 at 20:00 Iohexol (Omnipaque 350 Mg/ml) 75 ml 1X ONCE IV Last administered on 02/17/19at 20:24; Start 02/17/19 at 19:30; Stop 02/17/19 at 19:32; Status DC Info (CONTRAST GIVEN -- Rx MONITORING) 1 each PRN DAILY PRN MC SEE COMMENTS; Start 02/17/19 at 19:45; Stop 02/19/19 at 19:44 Fentanyl Citrate (Fentanyl 2ml Vial) 50 mcg PRN Q2HR PRN IV SEVERE PAIN 7-10 Last administered on 02/17/19 23:53; Start 02/17/19 at 21:15 Albuterol Sulfate (Ventolin Neb Soln) 2.5 mg RTQID NEB Last administered on 02/18/19 20:22; Start 02/18/19 at 08:00 Acetaminophen (Tylenol) 650 mg PRN Q6HRS PRN PO TEMP > 100.4F Last administered on 02/18/19 20:39; Start 02/18/19 at 08:45 Acetaminophen (Tylenol Supp) 650 mg PRN Q4HRS PRN KS TEMP > 100.4F; Start 02/18/19 at 08:45 Aspirin (Ecotrin) 325 mg DAILYWBKFT PO ; Start 02/18/19 at 09:00 Aspirin (Aspirin Rectal Supp) 300 mg PRN DAILY PRN KS IF UNABLE TO TAKE PO; Start 02/18/19 at 08:45 Lactobacillus Rhamnosus (Culturelle) 1 cap BID PO Last administered on 20:39; Start 02/18/19 at 21:00 Piperacillin Sod/ Tazobactam Sod 3.375 gm/Sodium Chloride 50 ml @ 100 mls/hr Q6HRS IV Last administered on 02/19/19 05:23; Start 02/18/19 at 11:00 Aspirin (Children'S Aspirin) 81 mg DAILY PO ; Start 02/18/19 at 11:00; Stop 02/18/19 at 15:43; Status DC Levothyroxine Sodium (Synthroid) 250 mcg DAILY06 PO Last administered on 02/19/19 05:23; Start 02/18/19 at 10:45 Metoprolol Succinate (Toprol Xl) 100 mg DAILY PO Last administered on 02/18/19 12:46; Start 02/18/19 at 10:45 Potassium Chloride (Klor-Con) 10 meq DAILY PO Last administered on 02/18/19 12:29; Start 02/18/19 at 11:00 Trazodone HCl (Desyrel) 50 mg QHS PO Last administered on 02/18/19 20:39; Start 02/18/19 at 21:00 Citalopram Hydrobromide (CeleXA) 20 mg DAILY PO Last administered on 02/18/19 12:29; Start 02/18/19 at 11:00 Insulin Glargine (Lantus) 64 units QHS SQ Last administered on 02/18/19 21:15; Start 02/18/19 at 21:00 Pantoprazole Sodium (Protonix) 40 mg DAILYAC PO Last administered on 02/18/19 12:29; Start 02/18/19 at 11:30 Atorvastatin Calcium (Lipitor) 80 mg QHS PO Last administered on 02/18/19 20:39; Start 02/18/19 at 21:00 Enoxaparin Sodium (Lovenox 40mg Syringe) 40 mg Q24H SQ Last administered on 02/18/19 15:46; Start 02/18/19 at 11:00 Insulin Human Lispro (HumaLOG) 0-9 UNITS TIDACHC SQ Last administered on 02/18/19 15:46; Start 02/18/19 at 16:30 Dextrose (Dextrose 50%-Water Syringe) 12.5 gm PRN Q15MIN PRN IV SEE COMMENTS; Start 02/18/19 at 15:15 Dextrose 250 ml PRN Q15MIN PRN IV SEE COMMENTS; Start 02/18/19 at 15:15; Status UNV Active Scripts Active Reported Omeprazole 40 Mg Capsule.dr 1 Cap PO DAILY Metoprolol Succinate ( Xl ) (Metoprolol Succinate) 100 Mg Tab.er.24h 1 Tab PO DAILY Crestor (Rosuvastatin Calcium) 20 Mg Tablet 20 Mg PO HS Furosemide 20 Mg Tablet 1 Tab PO DAILY 7 Days Potassium Chloride 10 Meq Tablet.er 10 Meq PO DAILY Aspirin 81 Mg Tab.chew 1 Tab PO DAILY Tresiba Flextouch U-200 (Insulin Degludec) 200 Unit/1 Ml Insuln.pen 64 Unit SQ HS Trazodone Hcl 50 Mg Tablet 1-2 Tab PO QHS Escitalopram Oxalate 10 Mg Tablet 1 Tab PO DAILY Ozempic (Semaglutide) 0.25 Mg/0.2 Ml Pen.injctr 0.5 Mg SQ QFR Levothyroxine Sodium 125 Mcg Tablet 250 Mcg PO DAILYAC Losartan-Hctz 100-12.5 Mg Tab (Losartan/Hydrochlorothiazide) 1 Each Tablet 1 Tab PO DAILY Vitals/I & O Vital Sign - Last 24 Hours 02/18/19 02/18/19 02/18/19 02/18/19 08:33 09:00 12:00 12:00 Pulse 60 B/P (MAP) 147/77 (100) 144/6 (52) Pulse Ox 94 O2 Delivery Nasal Cannula Nasal Cannula Room Air Nasal Cannula O2 Flow Rate 4.0 4.0 02/18/19 02/18/19 02/18/19 02/18/19 12:42 12:46 15:53 16:00 Pulse 56 B/P (MAP) 144/62 Pulse Ox 94 92 O2 Delivery Nasal Cannula Room Air Room Air O2 Flow Rate 4.0 02/18/19 02/18/19 02/18/19 02/18/19 16:00 18:45 20:00 20:00 Temp 97.5 97.5 97.5 97.5 Pulse 58 51 51 Resp 20 18 18 B/P (MAP) 142/64 (90) 142/64 (90) Pulse Ox 94 94 O2 Delivery Room Air Room Air Room Air Room Air 02/18/19 02/18/19 02/19/19 02/19/19 20:22 22:50 03:05 07:00 Temp 98.0 97.9 97.6 98.0 97.9 97.6 Pulse 50 43 45 Resp 18 18 16 B/P (MAP) 130/70 (90) 149/59 (89) 150/65 (93) Pulse Ox 94 93 96 91 O2 Delivery Room Air Room Air BiPAP/CPAP Room Air Intake and Output 02/18/19 02/18/19 02/19/19 15:00 23:00 07:00 Intake Total 1325 ml 720 ml Output Total 75 ml 750 ml 1300 ml Balance -75 ml 575 ml -580 ml YON RICHARDS MD Feb 19, 2019 08:28
--- NOTE | 2019-02-19 08:43 | RAD ---
PQRS Compliance statement: One or more of the following individualized dose reduction techniques were utilized for this examination: 1. Automated exposure control. 2. Adjustment of the mA and/or kV according to patient size. 3. Use of iterative reconstruction technique. Indication:Follow-up stroke. Aphasia. TECHNIQUE: CT head without IV contrast COMPARISON: 02/17/2019 FINDINGS: No pathologic extra-axial or intra-axial fluid collection. The ventricles and basal cisterns are within normal limits. No acute intracranial bleed. No focal loss of curtis-white differentiation. Orbits are within normal limits. No suspicious calvarial lesion. Visualized paranasal sinuses and mastoid air cells are clear. IMPRESSION: No acute intracranial processes noncontrast CT. Electronically signed by: Joce Wynne DO (02/19/2019 8:40 AM) [facility]
[2019-02-19] MEDS: CITALOPRAM 20 MG TABLET. PO SCH (09:00)
[2019-02-19] MEDS ORDERED: POTASSIUM CHLORIDE 20 MEQ TABLET.ER. PO ONE ×2 (09:00→12:15)
[2019-02-19] MEDS: LACTOBACILLUS RHAMNOSUS GG 1 CAPSULE. PO SCH (09:15)
[2019-02-19] MEDS: PANTOPRAZOLE 40 MG TABLET.DR. PO SCH (09:15)
[2019-02-19] MEDS: ASPIRIN ENTERIC COATED 325 MG TABLET.DR. PO SCH (09:15)
[2019-02-19] MEDS: POTASSIUM CHLORIDE 10 MEQ TABLET.ER. PO SCH (09:15)
[2019-02-19] MEDS: DOXYCYCLINE HYCLATE 100 MG in IV DEXTROSE 5% 100ML 100 ML IV SCH (09:17)
[2019-02-19] MEDS: POTASSIUM CHLORIDE 10MEQ 100 ML IV SCH ×2 (10:00→11:08)
[2019-02-19] MEDS ORDERED: METOPROLOL SUCC 24HR ER 25 MG TAB.ER.24H. PO SCH (10:30)
[2019-02-19] MEDS ORDERED: LACT1CAP19 PO (10:33)
[2019-02-19] MEDS ORDERED: METO-239 PO (10:33)
[2019-02-19] MEDS ORDERED: DOXY100C14 PO (10:33)
[2019-02-19] MEDS ORDERED: AMLO2.5T5 PO (10:36)
--- NOTE | 2019-02-19 10:36 | SNU/HH DC ---
DISCHARGE WITH HOME HEALTH DISCHARGE INFORMATION: Discharge Date: Feb 19, 2019 Final Diagnosis: Problems Medical Problems: (1) CVA (cerebral vascular accident) Status: Acute (2) Elevated troponin I level Status: Acute (3) Expressive aphasia Status: Acute (4) Headache Status: Acute (5) Hypertensive urgency, malignant Status: Acute (6) Migraine headache Status: Acute (7) Urinary tract infection Status: Acute Condition on Discharge: Stable CODE STATUS: Code Status: Full HOME HEALTH: Face to Face: I certify this patient is under my care and that I, or a nurse practitioner or physician's junior sales assistant working with me, had a face to face encounter that meets the physician face to face encounter requirements with this patient on 02/19/2019. Medical Complications: CVA, DM RN For Eval/Treatment: Yes Physical Therapy For: Evalulation/Treatment Occupational Therapy For: Evaluation/Treatment Home Health Aide For: Self-care Pt Meets Homebound Status: Extreme weakness w/ amb. POST DISCHARGE ORDERS: Activity Instructions for Disc: Activity as tolerated Weight Bearing Status after Di: As tolerated DIET AFTER DISCHARGE: ADA Wound/Incision Care: No wound care needed CHECKS AFTER DISCHARGE: Checks after discharge: Check blood press - daily, Check blood sugar, ac/hs, Weigh Yourself Daily FOLLOW-UP: Follow up with: Dr. Cazares, Urology 03/05/2019 TREATMENT/EQUIPMENT ORDERS: Adaptive Equipment Issued: None CERTIFICATION STATEMENT: Certification Statement: Certification Statement: Based on the above finding, I certify that this patient is confined to the home and needs intermittent halfway care, physical therapy and/or speech therapy, or continues to need occupational therapy.~ This patient is under my care, and I have initiated the establishment of the plan of care.~ This patient will be followed by myself or a community physician who will periodically review the plan of care. Home Meds Active Scripts Amlodipine Besylate (AMLODIPINE BESYLATE) 2.5 Mg Tablet, 2.5 MG PO DAILY for htn for 30 Days, #30 TAB 2 Refills Prov:YON RICHARDS MD 02/19/19 Doxycycline Monohydrate (DOXYCYCLINE MONOHYDRATE) 100 Mg Capsule, 1 CAP PO BID for UTI for 10 Days, #20 CAP Prov:YON RICHARDS MD 02/19/19 Lactobacillus Rhamnosus Gg (CULTURELLE) 1 Each Cap.sprink, 1 CAP PO BID for diarrhea for 10 Days, #20 CAP Prov:YON RICHARDS MD 02/19/19 Metoprolol Succinate (METOPROLOL SUCCINATE ( XL )) 25 Mg Tab.er.24h, 12.5 MG PO DAILY for HTN, CAD for 30 Days, #15 TAB.SR Prov:YON RICHARDS MD 02/19/19 Reported Medications Omeprazole (OMEPRAZOLE) 40 Mg Capsule.dr, 1 CAP PO DAILY for , #30 CAP 3 Refills 02/18/19 Rosuvastatin Calcium (CRESTOR) 20 Mg Tablet, 20 MG PO HS for FOR CHOLESTEROL, #30 TAB 0 Refills 02/18/19 Furosemide (FUROSEMIDE) 20 Mg Tablet, 1 TAB PO DAILY for swelling for 7 Days, #7 TAB 1 Refill 02/18/19 Potassium Chloride (POTASSIUM CHLORIDE) 10 Meq Tablet.er, 10 MEQ PO DAILY for , TAB 02/18/19 Aspirin (ASPIRIN) 81 Mg Tab.chew, 1 TAB PO DAILY for , #30 TAB 3 Refills 02/18/19 Insulin Degludec (Tresiba Flextouch U-200) 200 Unit/1 Ml Insuln.pen, 64 UNIT SQ HS for , EACH 02/18/19 Trazodone Hcl (TRAZODONE HCL) 50 Mg Tablet, 1-2 TAB PO QHS for , #30 TAB 1 Refill 02/18/19 Escitalopram Oxalate (ESCITALOPRAM OXALATE) 10 Mg Tablet, 1 TAB PO DAILY for , #30 TAB 3 Refills 02/18/19 Semaglutide (Ozempic) 0.25 Mg/0.2 Ml Pen.injctr, 0.5 MG SQ QFR for hyperglycemia, EACH 09/26/18 Levothyroxine Sodium (LEVOTHYROXINE SODIUM) 125 Mcg Tablet, 250 MCG PO DAILYAC for THYROID SUPPLEMENT, #30 TAB 0 Refills 09/26/18 Losartan/Hydrochlorothiazide (LOSARTAN-HCTZ 100-12.5 MG TAB) 1 Each Tablet, 1 TAB PO DAILY for hypertension, #30 09/09/16 Discontinued Reported Medications Metoprolol Succinate (METOPROLOL SUCCINATE ( XL )) 100 Mg Tab.er.24h, 1 TAB PO DAILY for , #30 TAB 5 Refills 02/18/19 YON RICHARDS MD Feb 19, 2019 10:36
--- NOTE | 2019-02-19 10:40 | PDOC3 ---
Discharge Summary Visit Information Date of Admission: Feb 17, 2019 Date of Discharge: Feb 19, 2019 Admitting Diagnosis: Expressive aphasia Final Diagnosis Problems Medical Problems: (1) CVA (cerebral vascular accident) Status: Acute (2) Elevated troponin I level Status: Acute (3) Expressive aphasia Status: Acute (4) Headache Status: Acute (5) Hypertensive urgency, malignant Status: Acute (6) Migraine headache Status: Acute (7) Urinary tract infection Status: Acute Brief Hospital Course Allergies Allergies Coded Allergies Type Severity Reaction Last Updated Verified ceftriaxone Allergy Intermediate rash 11/16/18 Yes cephalexin Allergy Intermediate RASH 11/16/18 Yes levofloxacin Allergy Intermediate RASH 11/16/18 Yes morphine Allergy Intermediate tolerates Dilaudid & Percocet 09/11/16 Yes ciprofloxacin Adverse Reaction Intermediate TENDONITIS 11/16/18 Yes lovastatin Adverse Reaction Intermediate CAUSES MUSCLE SPASMS 09/11/16 Yes Vital Signs Vital Signs Date Time Temp Pulse Resp B/P (MAP) Pulse Ox O2 Delivery O2 Flow Rate FiO2 02/19/19 09:09 95 Room Air 02/19/19 08:00 4.0 02/19/19 07:00 97.6 45 16 150/65 (93) 97.6 Lab Results Laboratory Tests Test 02/17/19 17:16 02/17/19 17:17 02/17/19 18:40 02/17/19 22:00 White Blood Count 7.4 x10^3/uL (4.0-11.0) Red Blood Count 4.67 x10^6/uL (3.50-5.40) Hemoglobin 13.4 g/dL (12.0-15.5) Hematocrit 39.4 % (36.0-47.0) Mean Corpuscular Volume 84 fL (79-100) Mean Corpuscular Hemoglobin 29 pg (25-35) Mean Corpuscular Hemoglobin Concent 34 g/dL (31-37) Red Cell Distribution Width 16.4 % (11.5-14.5) Platelet Count 198 x10^3/uL (140-400) Neutrophils (%) (Auto) 58 % (31-73) Lymphocytes (%) (Auto) 30 % (24-48) Monocytes (%) (Auto) 9 % (0-9) Eosinophils (%) (Auto) 2 % (0-3) Basophils (%) (Auto) 1 % (0-3) Neutrophils # (Auto) 4.3 x10^3/uL (1.8-7.7) Lymphocytes # (Auto) 2.2 x10^3/uL (1.0-4.8) Monocytes # (Auto) 0.7 x10^3/uL (0.0-1.1) Eosinophils # (Auto) 0.2 x10^3/uL (0.0-0.7) Basophils # (Auto) 0.1 x10^3/uL (0.0-0.2) Prothrombin Time 12.6 SEC (11.7-14.0) Prothromb Time International Ratio 1.0 (0.8-1.1) Sodium Level 133 mmol/L (136-145) Potassium Level 3.5 mmol/L (3.5-5.1) Chloride Level 94 mmol/L (98-107) Carbon Dioxide Level 28 mmol/L (21-32) Anion Gap 11 (6-14) Blood Urea Nitrogen 16 mg/dL (7-20) Creatinine 1.2 mg/dL (0.6-1.0) Estimated GFR (Cockcroft-Gault) 44.7 BUN/Creatinine Ratio 13 (6-20) Glucose Level 165 mg/dL (70-99) Lactic Acid Level 1.1 mmol/L (0.4-2.0) Calcium Level 10.2 mg/dL (8.5-10.1) Magnesium Level 1.9 mg/dL (1.8-2.4) Total Bilirubin 0.4 mg/dL (0.2-1.0) Aspartate Amino Transf (AST/SGOT) 37 U/L (15-37) Alanine Aminotransferase (ALT/SGPT) 29 U/L (14-59) Alkaline Phosphatase 79 U/L (46-116) Creatine Kinase 103 U/L (26-192) Troponin I Quantitative 0.590 ng/mL (0.000-0.055) 0.369 ng/mL (0.000-0.055) VU-Kaj-Y-Type Natriuretic Peptide 1819 pg/mL (0-124) Total Protein 8.7 g/dL (6.4-8.2) Albumin 3.6 g/dL (3.4-5.0) Albumin/Globulin Ratio 0.7 (1.0-1.7) Thyroid Stimulating Hormone (TSH) 21.764 uIU/mL (0.358-3.74) Glucose (Fingerstick) 154 mg/dL (70-99) Urine Collection Type U cath Urine Color Yellow Urine Clarity Cloudy Urine pH 7.5 Urine Specific [place] 1.015 Urine Protein >=300 mg/dL (NEG-TRACE) Urine Glucose (UA) 100 mg/dL (NEG) Urine Ketones (Stick) Trace mg/dL (NEG) Urine Blood Trace (NEG) Urine Nitrite Positive (NEG) Urine Bilirubin Negative (NEG) Urine Urobilinogen Dipstick 0.2 mg/dL (0.2 mg/dL) Urine Leukocyte Esterase Large (NEG) Urine RBC Occ /HPF (0-2) Urine WBC Tntc /HPF (0-4) Urine Squamous Epithelial Cells Few /LPF Urine Bacteria Many /HPF (0-FEW) Urine Mucus Slight /LPF Test 02/18/19 05:10 02/18/19 05:25 02/18/19 12:18 02/18/19 20:38 White Blood Count 7.9 x10^3/uL (4.0-11.0) Red Blood Count 4.48 x10^6/uL (3.50-5.40) Hemoglobin 12.6 g/dL (12.0-15.5) Hematocrit 38.5 % (36.0-47.0) Mean Corpuscular Volume 86 fL (79-100) Mean Corpuscular Hemoglobin 28 pg (25-35) Mean Corpuscular Hemoglobin Concent 33 g/dL (31-37) Red Cell Distribution Width 16.4 % (11.5-14.5) Platelet Count 203 x10^3/uL (140-400) Neutrophils (%) (Auto) 61 % (31-73) Lymphocytes (%) (Auto) 26 % (24-48) Monocytes (%) (Auto) 11 % (0-9) Eosinophils (%) (Auto) 1 % (0-3) Basophils (%) (Auto) 1 % (0-3) Neutrophils # (Auto) 4.8 x10^3/uL (1.8-7.7) Lymphocytes # (Auto) 2.1 x10^3/uL (1.0-4.8) Monocytes # (Auto) 0.9 x10^3/uL (0.0-1.1) Eosinophils # (Auto) 0.1 x10^3/uL (0.0-0.7) Basophils # (Auto) 0.0 x10^3/uL (0.0-0.2) Troponin I Quantitative 0.376 ng/mL (0.000-0.055) Sodium Level 136 mmol/L (136-145) Potassium Level 3.7 mmol/L (3.5-5.1) Chloride Level 97 mmol/L (98-107) Carbon Dioxide Level 30 mmol/L (21-32) Anion Gap 9 (6-14) Blood Urea Nitrogen 17 mg/dL (7-20) Creatinine 1.2 mg/dL (0.6-1.0) Estimated GFR (Cockcroft-Gault) 44.7 Glucose Level 178 mg/dL (70-99) Calcium Level 9.7 mg/dL (8.5-10.1) Glucose (Fingerstick) 220 mg/dL (70-99) 133 mg/dL (70-99) Test 02/19/19 06:04 02/19/19 07:41 Sodium Level 138 mmol/L (136-145) Potassium Level 3.3 mmol/L (3.5-5.1) Chloride Level 99 mmol/L (98-107) Carbon Dioxide Level 31 mmol/L (21-32) Anion Gap 8 (6-14) Blood Urea Nitrogen 19 mg/dL (7-20) Creatinine 1.3 mg/dL (0.6-1.0) Estimated GFR (Cockcroft-Gault) 40.7 Glucose Level 120 mg/dL (70-99) Calcium Level 9.4 mg/dL (8.5-10.1) Triglycerides Level 221 mg/dL (0-150) Cholesterol Level 277 mg/dL (0-200) LDL Cholesterol, Calculated 195 mg/dL (0-100) VLDL Cholesterol, Calculated 44 mg/dL (0-40) Non-HDL Cholesterol Calculated 239 mg/dL (0-129) HDL Cholesterol 38 mg/dL (40-60) Cholesterol/HDL Ratio 7.3 Glucose (Fingerstick) 116 mg/dL (70-99) Laboratory Tests Test 02/18/19 12:18 02/18/19 20:38 02/19/19 06:04 02/19/19 07:41 Glucose (Fingerstick) 220 mg/dL (70-99) 133 mg/dL (70-99) 116 mg/dL (70-99) Sodium Level 138 mmol/L (136-145) Potassium Level 3.3 mmol/L (3.5-5.1) Chloride Level 99 mmol/L (98-107) Carbon Dioxide Level 31 mmol/L (21-32) Anion Gap 8 (6-14) Blood Urea Nitrogen 19 mg/dL (7-20) Creatinine 1.3 mg/dL (0.6-1.0) Estimated GFR (Cockcroft-Gault) 40.7 Glucose Level 120 mg/dL (70-99) Calcium Level 9.4 mg/dL (8.5-10.1) Triglycerides Level 221 mg/dL (0-150) Cholesterol Level 277 mg/dL (0-200) LDL Cholesterol, Calculated 195 mg/dL (0-100) VLDL Cholesterol, Calculated 44 mg/dL (0-40) Non-HDL Cholesterol Calculated 239 mg/dL (0-129) HDL Cholesterol 38 mg/dL (40-60) Cholesterol/HDL Ratio 7.3 Brief Hospital Course Ms Lucas is a 68 year old female w/ PMHx Depression, Diabetes-Type II, Heart Disease, Hypertension, Hypothyroid, Uterine CA, KARENA who presents with complaining of headache and problem with speech. Patient history of migraine headache complaining of headache since yesterday and since last night impressive aphasia and confusion. Patient rated her pain 10 over 10 and states she had vomiting all night last night and was not able to eat or drink anything today. She denies chest pain and shortness of breath and fever and chills and neck pain. Troponin was 0.5. Seen by cardiology, echo without wall motion abnormalities, likely demand ischemia. Seen by neurology, unable to have MRI due to bladder stimulator. Past 24 hours has been sinus yesica in the 40s. I have discussed her compliance difficulties and she does not take her home metoprolol. No CP or SOB. Confusion improved per her and . Not worked with PT/OT yet. She understands she definitely needs a home nurse. Has f/u with urology for her stent removal on 03/05/19. Repeat CT head negative. A/P: Aphasia - Stroke symptoms probably related to hypertensive encephalopathy or migraine, she says that she has had these before, but she does also have history of stroke. Acute encephalopathy - likely toxic/infectious from UTI with stents in place will continue antibiotics, also metabolic, likely related to CVA sx. Hypothyroidism likely plays a role as well Headache - likely HTN urgency related HTN urgency - BP under better control already Intracranial vascular disease, subcritical bilateral carotid disease Thoracic aortic aneurysm, cardiology follows Complicated UTI - will await cultures as she has uretal stents in place, needs to avoid seeding, will need longer term antibiotics. External catheter ordered Obstructive uropathy with nephrolithiasis - uretal stent placement AMINTA - not improving yet Hypothyroidism - TSH 21, will cont meds, weight based for now, she admits to compliance difficulties since she lost her home nurse H/o e coli and proteus bacteremia - will cont empiric antibiotics Morbid obesity - counseled Multiple drug allergies - previously tolerated zosyn and omnicef well. Does not tolerate quinolones H/o uterine ca - in remission, has bladder stimulator in place, MRI contraindicated Elevated troponin - with AMINTA, elevated BP, likely stressed induced rather than NSTEMI, needs cardiology evaluation, regardless Greater than 30 minutes spent on discharge. Needs home health nursing, PT, OT Discharge Information Condition at Discharge: Improved Follow Up: Weeks (1) Disposition/Orders: D/C to Home w/ HH Scheduled Amlodipine Besylate (Amlodipine Besylate) 2.5 Mg Tablet, 2.5 MG PO DAILY for htn for 30 Days, #30 Ref 2 Prescribed by: YON RICHARDS MD on 02/19/19 1036 Aspirin (Aspirin) 81 Mg Tab.chew, 1 TAB PO DAILY for , #30 Ref 3 (Reported) Entered as Reported by: GIANLUCA SOUSA on 02/18/19 0152 Last Taken: Unknown Dose on Unknown Date & Time Last Action: Continued on 02/18/19 1037 by YON RICHARDS MD Doxycycline Monohydrate (Doxycycline Monohydrate) 100 Mg Capsule, 1 CAP PO BID for UTI for 10 Days, #20 Prescribed by: YON RICHARDS MD on 02/19/19 1033 Escitalopram Oxalate (Escitalopram Oxalate) 10 Mg Tablet, 1 TAB PO DAILY for , #30 Ref 3 (Reported) Entered as Reported by: GIANLUCA SOUSA on 02/18/19 0152 Last Taken: Unknown Dose on Unknown Date & Time Last Action: Converted on 02/18/19 1037 by YON RICHARDS MD Furosemide (Furosemide) 20 Mg Tablet, 1 TAB PO DAILY for swelling for 7 Days, #7 Ref 1 (Reported) Entered as Reported by: GIANLUCA SOUSA on 02/18/19151 Last Taken: Unknown Dose on Unknown Date & Time Last Action: New Order on 02/18/19151 by GIANLUCA SOUSA Insulin Degludec (Tresiba Flextouch U-200) 200 Unit/1 Ml Insuln.pen, 64 UNIT SQ HS for , (Reported) Entered as Reported by: GIANLUCA SOUSA on 02/18/19151 Last Taken: Unknown Dose on Unknown Date & Time Last Action: Converted on 02/18/19 1037 by YON RICHARDS MD Lactobacillus Rhamnosus Gg (Culturelle) 1 Each Cap.sprink, 1 CAP PO BID for diarrhea for 10 Days, #20 Prescribed by: YON RICHARDS MD on 02/19/19 1033 Levothyroxine Sodium (Levothyroxine Sodium) 125 Mcg Tablet, 250 MCG PO DAILYAC for THYROID SUPPLEMENT, #30 Ref 0 (Reported) Entered as Reported by: YVONNE HORNER RN on 09/26/18 1000 Last Action: Continued on 02/18/19 1037 by YON RICHARDS MD Losartan/Hydrochlorothiazide (Losartan-Hctz 100-12.5 Mg Tab) 1 Each Tablet, 1 TAB PO DAILY for hypertension, #30 (Reported) Entered as Reported by: JANIE DEAN on 09/09/16 2317 Metoprolol Succinate (Metoprolol Succinate ( Xl )) 25 Mg Tab.er.24h, 12.5 MG PO DAILY for HTN, CAD for 30 Days, #15 Prescribed by: YON RICHARDS MD on 02/19/19 1033 Omeprazole (Omeprazole) 40 Mg Capsule.dr, 1 CAP PO DAILY for , #30 Ref 3 (Reported) Entered as Reported by: GIANLUCA SOUSA on 02/18/19151 Last Taken: Unknown Dose on Unknown Date & Time Last Action: Converted on 02/18/19 1037 by YON RICHARDS MD Potassium Chloride (Potassium Chloride) 10 Meq Tablet.er, 10 MEQ PO DAILY for , (Reported) Entered as Reported by: GIANLUCA SOUSA on 02/18/19151 Last Taken: Unknown Dose on Unknown Date & Time Last Action: Continued on 02/18/19 1037 by YON RICHARDS MD Rosuvastatin Calcium (Crestor) 20 Mg Tablet, 20 MG PO HS for FOR CHOLESTEROL, #30 Ref 0 (Reported) Entered as Reported by: GIANLUCA SOUSA on 02/18/19151 Last Taken: Unknown Dose on Unknown Date & Time Last Action: Converted on 02/18/19 1037 by YON RICHARDS MD Semaglutide (Ozempic) 0.25 Mg/0.2 Ml Pen.injctr, 0.5 MG SQ QFR for hyperglycemia, (Reported) Entered as Reported by: YVONNE HORNER RN on 09/26/18 1000 Trazodone Hcl (Trazodone Hcl) 50 Mg Tablet, 1-2 TAB PO QHS for , #30 Ref 1 (Reported) Entered as Reported by: GIANLUCA SOUSA on 02/18/19151 Last Taken: UNKNOWN on Unknown Date & Time Last Action: Continued on 01/31 03/21 1037 by YON RICHARDS MD Discontinued Medications Metoprolol Succinate (Metoprolol Succinate ( Xl )) 100 Mg Tab.er.24h, 1 TAB PO DAILY for , #30 Ref 5 (Reported) Entered as Reported by: GIANLUCA SOUSA on 02/18/19151 Last Taken: Unknown Dose on Unknown Date & Time Last Action: Continued on 02/18/19 1037 by MD MAURICE TIM CHRISTOPHER S MD Feb 19, 2019 10:40
--- NOTE | 2019-02-19 10:49 | PDOC ---
PROGRESS NOTES Assessment Problems Medical Problems: (1) CVA (cerebral vascular accident) Status: Acute (2) Elevated troponin I level Status: Acute (3) Expressive aphasia Status: Acute (4) Headache Status: Acute (5) Hypertensive urgency, malignant Status: Acute (6) Migraine headache Status: Acute (7) Urinary tract infection Status: Acute Stroke symptoms probably related to hypertensive encephalopathy or migraine, she says that she has had these before, but she does also have history of stroke. CT scans negative times two, she did not have a stroke or transient ischemic attack Intracranial vascular disease, subcritical bilateral carotid disease Noncompliance Thoracic aortic aneurysm, cardiology follows. Severe hyperlipidemia Diabetic neuropathy Plan Aspirin Statin Treatment of hypertension Okay for discharge Follow-up with neurology as needed Subjective No complaints, wants to go home Objective Vital Signs Date Time Temp Pulse Resp B/P (MAP) Pulse Ox O2 Delivery O2 Flow Rate FiO2 02/19/19 09:09 95 Room Air 02/19/19 08:00 4.0 02/19/19 07:00 97.6 45 16 150/65 (93) 97.6 Intake and Output 02/19/19 06:59 Intake Total 2045 ml Output Total 2155 ml Balance -110 ml Intake Oral 1345 ml IV Total 700 ml Output Urine Total 2155 ml PHYSICAL EXAM Alert. Oriented to time, place and person. PERRL. EOMI. CN: no focal findings. Muscle tone: normal. Muscle strength: 5/5 DTR: 1+ Plantar reflex: flexor Gait: normal. Sensory exam: stocking loss. No cerebellar signs elicited. Review of Relevant I have reviewed the following items jeffrey (where applicable) has been applied. Labs Laboratory Tests Test 02/17/19 17:16 02/17/19 17:17 02/17/19 18:40 02/17/19 22:00 White Blood Count 7.4 x10^3/uL (4.0-11.0) Red Blood Count 4.67 x10^6/uL (3.50-5.40) Hemoglobin 13.4 g/dL (12.0-15.5) Hematocrit 39.4 % (36.0-47.0) Mean Corpuscular Volume 84 fL (79-100) Mean Corpuscular Hemoglobin 29 pg (25-35) Mean Corpuscular Hemoglobin Concent 34 g/dL (31-37) Red Cell Distribution Width 16.4 % (11.5-14.5) Platelet Count 198 x10^3/uL (140-400) Neutrophils (%) (Auto) 58 % (31-73) Lymphocytes (%) (Auto) 30 % (24-48) Monocytes (%) (Auto) 9 % (0-9) Eosinophils (%) (Auto) 2 % (0-3) Basophils (%) (Auto) 1 % (0-3) Neutrophils # (Auto) 4.3 x10^3/uL (1.8-7.7) Lymphocytes # (Auto) 2.2 x10^3/uL (1.0-4.8) Monocytes # (Auto) 0.7 x10^3/uL (0.0-1.1) Eosinophils # (Auto) 0.2 x10^3/uL (0.0-0.7) Basophils # (Auto) 0.1 x10^3/uL (0.0-0.2) Prothrombin Time 12.6 SEC (11.7-14.0) Prothromb Time International Ratio 1.0 (0.8-1.1) Sodium Level 133 mmol/L (136-145) Potassium Level 3.5 mmol/L (3.5-5.1) Chloride Level 94 mmol/L (98-107) Carbon Dioxide Level 28 mmol/L (21-32) Anion Gap 11 (6-14) Blood Urea Nitrogen 16 mg/dL (7-20) Creatinine 1.2 mg/dL (0.6-1.0) Estimated GFR (Cockcroft-Gault) 44.7 BUN/Creatinine Ratio 13 (6-20) Glucose Level 165 mg/dL (70-99) Lactic Acid Level 1.1 mmol/L (0.4-2.0) Calcium Level 10.2 mg/dL (8.5-10.1) Magnesium Level 1.9 mg/dL (1.8-2.4) Total Bilirubin 0.4 mg/dL (0.2-1.0) Aspartate Amino Transf (AST/SGOT) 37 U/L (15-37) Alanine Aminotransferase (ALT/SGPT) 29 U/L (14-59) Alkaline Phosphatase 79 U/L (46-116) Creatine Kinase 103 U/L (26-192) Troponin I Quantitative 0.590 ng/mL (0.000-0.055) 0.369 ng/mL (0.000-0.055) LW-Cxd-Y-Type Natriuretic Peptide 1819 pg/mL (0-124) Total Protein 8.7 g/dL (6.4-8.2) Albumin 3.6 g/dL (3.4-5.0) Albumin/Globulin Ratio 0.7 (1.0-1.7) Thyroid Stimulating Hormone (TSH) 21.764 uIU/mL (0.358-3.74) Glucose (Fingerstick) 154 mg/dL (70-99) Urine Collection Type U cath Urine Color Yellow Urine Clarity Cloudy Urine pH 7.5 Urine Specific [place] 1.015 Urine Protein >=300 mg/dL (NEG-TRACE) Urine Glucose (UA) 100 mg/dL (NEG) Urine Ketones (Stick) Trace mg/dL (NEG) Urine Blood Trace (NEG) Urine Nitrite Positive (NEG) Urine Bilirubin Negative (NEG) Urine Urobilinogen Dipstick 0.2 mg/dL (0.2 mg/dL) Urine Leukocyte Esterase Large (NEG) Urine RBC Occ /HPF (0-2) Urine WBC Tntc /HPF (0-4) Urine Squamous Epithelial Cells Few /LPF Urine Bacteria Many /HPF (0-FEW) Urine Mucus Slight /LPF Test 02/18/19 05:10 02/18/19 05:25 02/18/19 12:18 02/18/19 20:38 White Blood Count 7.9 x10^3/uL (4.0-11.0) Red Blood Count 4.48 x10^6/uL (3.50-5.40) Hemoglobin 12.6 g/dL (12.0-15.5) Hematocrit 38.5 % (36.0-47.0) Mean Corpuscular Volume 86 fL (79-100) Mean Corpuscular Hemoglobin 28 pg (25-35) Mean Corpuscular Hemoglobin Concent 33 g/dL (31-37) Red Cell Distribution Width 16.4 % (11.5-14.5) Platelet Count 203 x10^3/uL (140-400) Neutrophils (%) (Auto) 61 % (31-73) Lymphocytes (%) (Auto) 26 % (24-48) Monocytes (%) (Auto) 11 % (0-9) Eosinophils (%) (Auto) 1 % (0-3) Basophils (%) (Auto) 1 % (0-3) Neutrophils # (Auto) 4.8 x10^3/uL (1.8-7.7) Lymphocytes # (Auto) 2.1 x10^3/uL (1.0-4.8) Monocytes # (Auto) 0.9 x10^3/uL (0.0-1.1) Eosinophils # (Auto) 0.1 x10^3/uL (0.0-0.7) Basophils # (Auto) 0.0 x10^3/uL (0.0-0.2) Troponin I Quantitative 0.376 ng/mL (0.000-0.055) Sodium Level 136 mmol/L (136-145) Potassium Level 3.7 mmol/L (3.5-5.1) Chloride Level 97 mmol/L (98-107) Carbon Dioxide Level 30 mmol/L (21-32) Anion Gap 9 (6-14) Blood Urea Nitrogen 17 mg/dL (7-20) Creatinine 1.2 mg/dL (0.6-1.0) Estimated GFR (Cockcroft-Gault) 44.7 Glucose Level 178 mg/dL (70-99) Calcium Level 9.7 mg/dL (8.5-10.1) Glucose (Fingerstick) 220 mg/dL (70-99) 133 mg/dL (70-99) Test 02/19/19 06:04 02/19/19 07:41 Sodium Level 138 mmol/L (136-145) Potassium Level 3.3 mmol/L (3.5-5.1) Chloride Level 99 mmol/L (98-107) Carbon Dioxide Level 31 mmol/L (21-32) Anion Gap 8 (6-14) Blood Urea Nitrogen 19 mg/dL (7-20) Creatinine 1.3 mg/dL (0.6-1.0) Estimated GFR (Cockcroft-Gault) 40.7 Glucose Level 120 mg/dL (70-99) Calcium Level 9.4 mg/dL (8.5-10.1) Triglycerides Level 221 mg/dL (0-150) Cholesterol Level 277 mg/dL (0-200) LDL Cholesterol, Calculated 195 mg/dL (0-100) VLDL Cholesterol, Calculated 44 mg/dL (0-40) Non-HDL Cholesterol Calculated 239 mg/dL (0-129) HDL Cholesterol 38 mg/dL (40-60) Cholesterol/HDL Ratio 7.3 Glucose (Fingerstick) 116 mg/dL (70-99) Laboratory Tests Test 02/18/19 12:18 02/18/19 20:38 02/19/19 06:04 02/19/19 07:41 Glucose (Fingerstick) 220 mg/dL (70-99) 133 mg/dL (70-99) 116 mg/dL (70-99) Sodium Level 138 mmol/L (136-145) Potassium Level 3.3 mmol/L (3.5-5.1) Chloride Level 99 mmol/L (98-107) Carbon Dioxide Level 31 mmol/L (21-32) Anion Gap 8 (6-14) Blood Urea Nitrogen 19 mg/dL (7-20) Creatinine 1.3 mg/dL (0.6-1.0) Estimated GFR (Cockcroft-Gault) 40.7 Glucose Level 120 mg/dL (70-99) Calcium Level 9.4 mg/dL (8.5-10.1) Triglycerides Level 221 mg/dL (0-150) Cholesterol Level 277 mg/dL (0-200) LDL Cholesterol, Calculated 195 mg/dL (0-100) VLDL Cholesterol, Calculated 44 mg/dL (0-40) Non-HDL Cholesterol Calculated 239 mg/dL (0-129) HDL Cholesterol 38 mg/dL (40-60) Cholesterol/HDL Ratio 7.3 Microbiology 02/17/19 Blood Culture - Preliminary, Resulted NO GROWTH AFTER 1 DAY Medications Current Medications Fentanyl Citrate (Fentanyl 2ml Vial) 50 mcg 1X ONCE IV Last administered on 02/17/19at 18:02; Start 02/17/19 at 17:30; Stop 02/17/19 at 17:31; Status DC Hydralazine HCl (Apresoline Inj) 10 mg 1X ONCE IVP Last administered on 02/17/19at 17:41; Start 02/17/19 at 17:30; Stop 02/17/19 at 17:31; Status DC Hydralazine HCl (Apresoline Inj) 10 mg 1X ONCE IVP Last administered on 02/17/19at 18:20; Start 02/17/19 at 18:30; Stop 02/17/19 at 18:31; Status DC Nicardipine HCl 50 mg/Sodium Chloride 250 ml @ 25 mls/hr CONT PRN IV SEE I/O RECORD Last administered on 02/17/19 23:53; Start 02/17/19 at 18:45; Stop 02/18/19 at 18:16; Status DC Ondansetron HCl (Zofran) 4 mg PRN Q8HRS PRN IV NAUSEA/VOMITING Last administered on 02/17/19at 20:51; Start 02/17/19 at 19:15; Stop 02/18/19 at 19:1 4; Status DC Dextrose/Sodium Chloride 500 ml @ 0 mls/hr 1X ONCE IV ; Start 02/17/19 at 19:15; Stop 02/17/19 at 19:22; Status DC Dextrose/Sodium Chloride 1,000 ml @ 75 mls/hr 1X ONCE IV Last administered on 02/17/19 23:53; Start 02/17/19 at 19:15; Stop 02/18/19 at 08:34; Status DC Doxycycline Hyclate 100 mg/ Dextrose 100 ml @ 50 mls/hr Q12HR IV Last administered on 02/19/19 09:24; Start 02/17/19 at 20:00 Iohexol (Omnipaque 350 Mg/ml) 75 ml 1X ONCE IV Last administered on 02/17/19at 20:24; Start 02/17/19 at 19:30; Stop 02/17/19 at 19:32; Status DC Info (CONTRAST GIVEN -- Rx MONITORING) 1 each PRN DAILY PRN MC SEE COMMENTS; Start 02/17/19 at 19:45; Stop 02/19/19 at 19:44 Fentanyl Citrate (Fentanyl 2ml Vial) 50 mcg PRN Q2HR PRN IV SEVERE PAIN 7-10 Last administered on 02/17/19at 23:53; Start 02/17/19 at 21:15 Albuterol Sulfate (Ventolin Neb Soln) 2.5 mg RTQID NEB Last administered on 02/19/19at 09:09; Start 02/18/19 at 08:00 Acetaminophen (Tylenol) 650 mg PRN Q6HRS PRN PO TEMP > 100.4F Last administered on 02/18/19at 20:39; Start 02/18/19 at 08:45 Acetaminophen (Tylenol Supp) 650 mg PRN Q4HRS PRN NV TEMP > 100.4F; Start at 08:45 Aspirin (Ecotrin) 325 mg DAILYWBKFT PO Last administered on 02/19/19 09:24; Start 02/18/19 at 09:00 Aspirin (Aspirin Rectal Supp) 300 mg PRN DAILY PRN NV IF UNABLE TO TAKE PO; Start 02/18/19 at 08:45 Lactobacillus Rhamnosus (Culturelle) 1 cap BID PO Last administered on 02/19/19 09:24; Start 02/18/19 at 21:00 Piperacillin Sod/ Tazobactam Sod 3.375 gm/Sodium Chloride 50 ml @ 100 mls/hr Q6HRS IV Last administered on 02/19/19 05:23; Start 02/18/19 at 11:00 Aspirin (Children'S Aspirin) 81 mg DAILY PO ; Start 02/18/19 at 11:00; Stop 02/18/19 at 15:43; Status DC Levothyroxine Sodium (Synthroid) 250 mcg DAILY06 PO Last administered on 02/19/19 05:23; Start 02/18/19 at 10:45 Metoprolol Succinate (Toprol Xl) 100 mg DAILY PO Last administered on 02/18/19 12:46; Start 02/18/19 at 10:45; Stop 02/19/19 at 10:24; Status DC Potassium Chloride (Klor-Con) 10 meq DAILY PO Last administered on 02/19/19 09:24; Start 02/18/19 at 11:00 Trazodone HCl (Desyrel) 50 mg QHS PO Last administered on 02/18/19 20:39; Start 02/18/19 at 21:00 Citalopram Hydrobromide (CeleXA) 20 mg DAILY PO Last administered on 02/19/19 09:24; Start 02/18/19 at 11:00 Insulin Glargine (Lantus) 64 units QHS SQ Last administered on 02/18/19 21:15; Start 02/18/19 at 21:00 Pantoprazole Sodium (Protonix) 40 mg DAILYAC PO Last administered on 02/19/19 09:24; Start 02/18/19 at 11:30 Atorvastatin Calcium (Lipitor) 80 mg QHS PO Last administered on 02/18/19at 20:39; Start 02/18/19 at 21:00 Enoxaparin Sodium (Lovenox 40mg Syringe) 40 mg Q24H SQ Last administered on 02/18/19at 15:46; Start 02/18/19 at 11:00 Insulin Human Lispro (HumaLOG) 0-9 UNITS TIDACHC SQ Last administered on 02/18/19at 15:46; Start 02/18/19 at 16:30 Dextrose (Dextrose 50%-Water Syringe) 12.5 gm PRN Q15MIN PRN IV SEE COMMENTS; Start 02/18/19 at 15:15 Dextrose 250 ml PRN Q15MIN PRN IV SEE COMMENTS; Start 02/18/19 at 15:15; Status UNV Potassium Chloride (Klor-Con) 40 meq 1X ONCE PO Last administered on 02/19/19at 09:24; Start 02/19/19 at 09:00; Stop 02/19/19 at 09:01; Status DC Potassium Chloride/Water 100 ml @ 100 mls/hr Q1H IV ; Start 02/19/19 at 09:00; Stop 02/19/19 at 10:59 Metoprolol Succinate (Toprol Xl) 12.5 mg DAILY PO ; Start 02/19/19 at 10:30 Active Scripts Active Amlodipine Besylate 2.5 Mg Tablet 2.5 Mg PO DAILY 30 Days Doxycycline Monohydrate 100 Mg Capsule 1 Cap PO BID 10 Days Culturelle (Lactobacillus Rhamnosus Gg) 1 Each Cap.sprink 1 Cap PO BID 10 Days Metoprolol Succinate ( Xl ) (Metoprolol Succinate) 25 Mg Tab.er.24h 12.5 Mg PO DAILY 30 Days Reported Omeprazole 40 Mg Capsule.dr 1 Cap PO DAILY Crestor (Rosuvastatin Calcium) 20 Mg Tablet 20 Mg PO HS Furosemide 20 Mg Tablet 1 Tab PO DAILY 7 Days Potassium Chloride 10 Meq Tablet.er 10 Meq PO DAILY Aspirin 81 Mg Tab.chew 1 Tab PO DAILY Tresiba Flextouch U-200 (Insulin Degludec) 200 Unit/1 Ml Insuln.pen 64 Unit SQ HS Trazodone Hcl 50 Mg Tablet 1-2 Tab PO QHS Escitalopram Oxalate 10 Mg Tablet 1 Tab PO DAILY Ozempic (Semaglutide) 0.25 Mg/0.2 Ml Pen.injctr 0.5 Mg SQ QFR Levothyroxine Sodium 125 Mcg Tablet 250 Mcg PO DAILYAC Losartan-Hctz 100-12.5 Mg Tab (Losartan/Hydrochlorothiazide) 1 Each Tablet 1 Tab PO DAILY Vitals/I & O Vital Sign - Last 24 Hours 02/18/19 02/18/19 02/18/19 02/18/19 12:00 12:00 12:42 12:46 Pulse 56 B/P (MAP) 144/6 (52) 144/62 Pulse Ox 94 O2 Delivery Room Air Nasal Cannula Nasal Cannula O2 Flow Rate 4.0 4.0 02/18/19 02/18/19 02/18/19 02/18/19 15:53 16:00 16:00 18:45 Temp 97.5 97.5 Pulse 58 51 Resp 20 18 B/P (MAP) 142/64 (90) Pulse Ox 92 94 O2 Delivery Room Air Room Air Room Air Room Air 02/18/19 02/18/19 02/18/19 02/18/19 20:00 20:00 20:22 22:50 Temp 97.5 98.0 97.5 98.0 Pulse 51 50 Resp 18 18 B/P (MAP) 142/64 (90) 130/70 (90) Pulse Ox 94 94 93 O2 Delivery Room Air Room Air Room Air Room Air 02/19/19 02/19/19 02/19/19 02/19/19 03:05 07:00 08:00 09:09 Temp 97.9 97.6 97.9 97.6 Pulse 43 45 Resp 18 16 B/P (MAP) 149/59 (89) 150/65 (93) Pulse Ox 96 91 95 O2 Delivery BiPAP/CPAP Room Air Room Air Room Air O2 Flow Rate 4.0 Intake and Output 02/18/19 02/18/19 02/19/19 14:59 22:59 06:59 Intake Total 1325 ml 720 ml Output Total 105 ml 750 ml 1300 ml Balance -105 ml 575 ml -580 ml WEST RICH MD Feb 19, 2019 10:49
[2019-02-19 11:00] VITALS: BP 155/76
[2019-02-19] MEDS: ENOXAPARIN 40 MG/0.4 ML SYRINGE. SQ SCH (11:08)
--- NOTE | 2019-02-19 11:14 | NUR ---
SS following up with discharge planning. Pt agreeable to [facility], ; fax [phone], at discharge. Referral and discharge orders phoned and faxed to [facility].
[2019-02-19] MEDS ORDERED: LOSARTAN POTASSIUM 50 MG TABLET. PO SCH (13:00)
[2019-02-19] MEDS ORDERED: amLODIPine BESYLATE 5 MG TABLET PO SCH (13:00)
[2019-02-19] MEDS ORDERED: hydroCHLOROthiazide 12.5 MG CAPSULE PO SCH (13:00)
[2019-02-19 15:00] VITALS: BP 143/64
--- NOTE | 2019-02-19 17:12 | PDOC ---
GYPSY MACK [employer] 02/19/19 1712: CARDIO Progress Notes Date and Time Date of Service 02/19/19 Time of Evaluation 1310 Subjective Subjective: No Chest Pain, No shortness of breath, No Palpitations Vitals Vitals Vital Signs Date Time Temp Pulse Resp B/P (MAP) Pulse Ox O2 Delivery O2 Flow Rate FiO2 02/19/19 15:00 97.4 50 16 143/64 (90) 95 Room Air 97.4 02/19/19 08:00 4.0 Weight Weight [ ] Input and Output Intake and Output Intake and Output 02/19/19 07:00 Intake Total 2045 ml Output Total 2125 ml Balance -80 ml Intake Oral 1345 ml IV Total 700 ml Output Urine Total 2125 ml Laboratory Labs Laboratory Tests Test 02/18/19 20:38 02/19/19 06:04 02/19/19 07:41 02/19/19 11:42 Glucose (Fingerstick) 133 mg/dL (70-99) 116 mg/dL (70-99) 145 mg/dL (70-99) Sodium Level 138 mmol/L (136-145) Potassium Level 3.3 mmol/L (3.5-5.1) Chloride Level 99 mmol/L (98-107) Carbon Dioxide Level 31 mmol/L (21-32) Anion Gap 8 (6-14) Blood Urea Nitrogen 19 mg/dL (7-20) Creatinine 1.3 mg/dL (0.6-1.0) Estimated GFR (Cockcroft-Gault) 40.7 Glucose Level 120 mg/dL (70-99) Calcium Level 9.4 mg/dL (8.5-10.1) Triglycerides Level 221 mg/dL (0-150) Cholesterol Level 277 mg/dL (0-200) LDL Cholesterol, Calculated 195 mg/dL (0-100) VLDL Cholesterol, Calculated 44 mg/dL (0-40) Non-HDL Cholesterol Calculated 239 mg/dL (0-129) HDL Cholesterol 38 mg/dL (40-60) Cholesterol/HDL Ratio 7.3 Microbiology Micro Microbiology 02/17/19 Blood Culture - Preliminary, Resulted NO GROWTH AFTER 1 DAY Physical Exam HEENT: Neck Supple W Full Motion Chest: Symmetric LUNGS: Clear to Auscultation Heart: S1S2, RRR Abdomen: Soft N/T Extremities: No Edema Neurology: alert, oriented, follow commands Assessment Assessment 1. Aphagia; neuro following. Resolve. CT negative for acute changes. Unable to have. Likely secondary to hypertensive encephalopathy 2. Hypertensive urgency; Secondary to med noncompliance. remains mildly elevated. 3. Mild troponin elevation; Peak 0.590. most probably type II, demand ischemia in the setting of #2. Echo with preserved LV systolic function. CP free. 4. DM2; as per PCP 5. H/o CVA 6. Hyperlipidemia; statin 7. Hypothyroidism; TSH 21. 8. Noncompliance; hasn't taken meds in weeks 9. KARENA; compliant with CPAP Recommendations Resume Norvasc, losartan. Continue metoprolol Reinforced importance of medical compliance Supportive care Consider outpatient ischemic evaluation May discharge from a CV standpoint and f/u in our office with Dr. Matthews in 3 months. ERIN HENRIQUEZ MD 02/19/19 8189: CARDIO Progress Notes Plan Plan Pt. seen and examined. Agree with above FLOORLEADER note. I had a long discussion with her about lifestyle changes, ways we can help improve her compliance. DIscussed with her family as well. Will f/u in the office. Thanks GYPSY MACK APRN Feb 19, 2019 17:12 ERIN HENRIQUEZ MD Feb 19, 2019 22:49
--- NOTE | 2019-02-19 18:16 | NUR ---
Discharge Note: BENNY LIPSCOMB [facility] Discharge instructions and discharge home medications reviewed with Patient and a copy given. All questions have been answered and understanding verbalized. The following instructions and handouts were given: HTN Discontinued IV line Patient discharged to home with self care via wheelchair
[2019-02-19] MEDS ORDERED: ENOXAPARIN 40 MG/0.4 ML SYRINGE. SQ SCH (21:00)
== END 2019-02-19 18:26 | disposition home health service (06) | DRG 77 ==
LOC: ER 17:05 → 1 WEST ICU 18:30 → 2 SOUTH 02-18 18:45
PROVIDERS: ADMIT Internal Medicine; ATTEND Internal Medicine
PROC: 5A09357 Assistance with Respiratory Ventilation, Less than 24 Consecutive Hours, Continuous Positive Airway Pressure (ICD-10-PCS; principal; 2019-02-18)
DX: I67.4 Hypertensive encephalopathy (principal); G92 Toxic encephalopathy; N17.9 Acute kidney failure, unspecified; I16.1 Hypertensive emergency; N39.0 Urinary tract infection, site not specified; Z68.41 Body mass index [BMI] 40.0-44.9, adult; G43.909 Migraine, unspecified, not intractable, without status migrainosus; E03.9 Hypothyroidism, unspecified; E11.40 Type 2 diabetes mellitus with diabetic neuropathy, unspecified; E66.01 Morbid (severe) obesity due to excess calories; E78.5 Hyperlipidemia, unspecified; G47.33 Obstructive sleep apnea (adult) (pediatric); G51.0 Bell's palsy; I11.0 Hypertensive heart disease with heart failure; I50.9 Heart failure, unspecified; I65.1 Occlusion and stenosis of basilar artery; I65.29 Occlusion and stenosis of unspecified carotid artery; I66.02 Occlusion and stenosis of left middle cerebral artery; I69.320 Aphasia following cerebral infarction; J32.0 Chronic maxillary sinusitis; K21.9 Gastro-esophageal reflux disease without esophagitis; K76.0 Fatty (change of) liver, not elsewhere classified; N13.9 Obstructive and reflux uropathy, unspecified; N20.0 Calculus of kidney; R13.0 Aphagia; R47.02 Dysphasia; Z82.3 Family history of stroke; Z82.49 Family history of ischemic heart disease and other diseases of the circulatory system; Z85.42 Personal history of malignant neoplasm of other parts of uterus; Z88.9 Allergy status to unspecified drugs, medicaments and biological substances; Z90.710 Acquired absence of both cervix and uterus; Z91.11 Patient's noncompliance with dietary regimen; Z91.14 Patient's other noncompliance with medication regimen; Z91.19 Patient's noncompliance with other medical treatment and regimen; F32.9 Major depressive disorder, single episode, unspecified; F41.9 Anxiety disorder, unspecified; M19.90 Unspecified osteoarthritis, unspecified site; Z88.8 Allergy status to other drugs, medicaments and biological substances
CPT/HCPCS: 36415; 70450; 70496; 70498; 71045; 80048; 80053; 80061; 81001; 82550; 82962; 83605; 83735; 83880; 84443; 84484; 85025; 85610; 87040; 87086; 93005; 93306; 94640; 94760; J0360; J1650; J1815; J2405; J2543; J3010; J3480; J3490; J7050; J7613; Q9967; 92610; 97116; G0378; J7030

== ENCOUNTER 2019-04-21 19:14 | Emergency (ER) | payer MEDICARE ==
[~2019-04-21] VITALS: Ht 165.1 cm; Wt 117.9 kg
[~2019-04-21 19:14] MED LIST changes: +AMLO2.5T5 PO; +ASPI-630 PO; +DOXY100C14 PO; +FURO20TA3 PO; -GLIM4TAB2 PO; +GLIM4TAB4 PO; -MAGN400T3 PO; +MAGN400T5 PO; +METO-239 PO; +METO-247 PO; +OMEP40CA45; +OMEP40CA45 PO; -OMEP40CA5; +OXYB5TAB10 PO; -OXYB5TAB7 PO; +POTA10TA12 PO
[2019-04-21 19:43] LABS: BASO % 0 % (0-3); EOS # 0.2 x10^3/uL (0.0-0.7); EOS % 2 % (0-3); HEMOGLOBIN 13.2 g/dL (12.0-15.5); LYMPH # 1.7 x10^3/uL (1.0-4.8); LYMPH % 25 % (24-48); MEAN CORPUSCULAR HEMOGLOBIN 28 pg (25-35); MEAN CORPUSCULAR HGB CONC 33 g/dL (31-37); MEAN CORPUSCULAR VOLUME 85 fL (79-100); MONO # 0.5 x10^3/uL (0.0-1.1); MONO % 8 % (0-9); NEUT # 4.5 x10^3/uL (1.8-7.7); NEUT % 65 % (31-73); PLATELET COUNT 149 x10^3/uL (140-400); RED BLOOD COUNT 4.68 x10^6/uL (3.50-5.40); RED CELL DISTRIBUTION WIDTH 15.1 % (11.5-14.5)
[2019-04-21 19:54] LABS: CALCIUM 9.7 mg/dL (8.5-10.1); CREATININE 1.1 mg/dL (0.6-1.0); GFR 49.4; POTASSIUM 3.4 mmol/L (3.5-5.1)
[2019-04-21 19:59] LABS: ALBUMIN 3.7 g/dL (3.4-5.0); ALBUMIN/GLOBULIN RATIO 0.8 (1.0-1.7); TOTAL BILIRUBIN 0.4 mg/dL (0.2-1.0); TOTAL PROTEIN 8.2 g/dL (6.4-8.2)
[2019-04-21] MEDS ORDERED: hydrALAZINE 20 MG/ML VIAL. IVP ONE ×2 (20:00→22:00)
--- NOTE | 2019-04-21 20:08 | PHYS DOC ---
Past Medical History Past Medical History: Cancer, CVA, Depression, Diabetes-Type II, Heart Disease, Hypertension, Hypothyroid, Kidney Stone, TIA, Other Additional Past Medical Histor: uterine CA, KARENA Past Surgical History: Cancer Surgery, Cholecystectomy, Other Additional Past Surgical Histo: arthrocopic knee, 2 heart caths, lithotripsy Alcohol Use: Occasionally Drug Use: None Adult General Chief Complaint Chief Complaint: NEURO SYMPTOMS/DEFICITS [facility] HPI Patient is a 68 year old who presents with complaint of facial droop. Patient states she woke up 4 days ago with left side of facial weakness and numbness that gradually getting worse. Patient denies upper and lower extremity weakness or numbness, nausea and vomiting, chest pain, fever and chills, history of rece nt URI or the same problem. Patient states that he was in his family to auscultation his to contact and she decided to come today. Patient states she has history of CVA previously without residual symptoms. Patient states she didn't take her blood pressure medication today and complaining of headache and rated her pain 3 or 4/10. Review of Systems Review of Systems Constitutional: Denies fever or chills [] Eyes: Denies change in visual acuity, redness, or eye pain [] HENT: Denies nasal congestion or sore throat [] Respiratory: Denies cough or shortness of breath [] Cardiovascular: No additional information not addressed in HPI [] GI: Denies abdominal pain, nausea, vomiting, bloody stools or diarrhea [] : Denies dysuria or hematuria [] Musculoskeletal: Denies back pain or joint pain [] Integument: Denies rash or skin lesions [] Neurologic: Reports headache, reports focal weakness and sensory changes [] Endocrine: Denies polyuria or polydipsia [] All other systems were reviewed and found to be within normal limits, except as documented in this note. Current Medications Current Medications Current Medications Medications (Trade) Dose Ordered Sig/Nader Start Time Stop Time Status Last Admin Dose Admin Acetaminophen/ Hydrocodone Bitart (Lortab 5/325) 1 tab 1X ONCE 04/21/19 20:30 04/21/19 20:31 DC 04/21/19 20:40 1 TAB Clonidine HCl (Catapres) 0.2 mg 1X ONCE 04/21/19 21:00 04/21/19 21:01 DC 04/21/19 21:13 0.2 MG Hydralazine HCl (Apresoline Inj) 20 mg 1X ONCE 04/21/19 22:00 04/21/19 22:01 DC 04/21/19 21:50 20 MG Nitrofurantoin Macrocrystals (Macrobid) 100 mg 1X ONCE 04/21/19 21:45 04/21/19 21:46 DC 04/21/19 21:56 100 MG Allergies Allergies Allergies Coded Allergies Type Severity Reaction Last Updated Verified ceftriaxone Allergy Intermediate rash 11/16/18 Yes cephalexin Allergy Intermediate RASH 11/16/18 Yes levofloxacin Allergy Intermediate RASH 11/16/18 Yes morphine Allergy Intermediate tolerates Dilaudid & Percocet 09/11/16 Yes ciprofloxacin Adverse Reaction Intermediate TENDONITIS 11/16/18 Yes lovastatin Adverse Reaction Intermediate CAUSES MUSCLE SPASMS 09/11/16 Yes Physical Exam Physical Exam Constitutional: Well developed, well nourished, no acute distress, non-toxic appearance. [] HENT: Normocephalic, atraumatic, bilateral external ears normal, oropharynx moist, no oral exudates, nose normal. [] Eyes: PERRLA, EOMI, conjunctiva normal, no discharge. [] Neck: Normal range of motion, no tenderness, supple, no stridor. [] Cardiovascular:Heart rate regular rhythm, no murmur [] Lungs & Thorax: Bilateral breath sounds clear to auscultation [] Abdomen: Bowel sounds normal, soft, no tenderness, no masses, no pulsatile masses. [] Skin: Warm, dry, no erythema, no rash. [] Back: No tenderness, no CVA tenderness. [] Extremities: No tenderness, no cyanosis, no clubbing, ROM intact, no edema. [] Neurologic: Alert and oriented X 3, left facial palsy involving eye and forehead .normal motor function and normal sensory function on extremities,NHIS-3 Psychologic: Affect normal, judgement normal, mood normal. [] Current Patient Data Vital Signs Vital Signs Date Time Temp Pulse Resp B/P (MAP) Pulse Ox O2 Delivery O2 Flow Rate FiO2 04/21/19 21:50 60 232/93 04/21/19 20:40 23 95 04/21/19 20:40 Room Air 04/21/19 19:15 97.8 97.8 Lab Values Laboratory Tests Test 04/21/19 19:20 04/21/19 19:30 04/21/19 21:00 Glucose (Fingerstick) 126 mg/dL (70-99) H White Blood Count 7.0 x10^3/uL (4.0-11.0) Red Blood Count 4.68 x10^6/uL (3.50-5.40) Hemoglobin 13.2 g/dL (12.0-15.5) Hematocrit 40.0 % (36.0-47.0) Mean Corpuscular Volume 85 fL (79-100) Mean Corpuscular Hemoglobin 28 pg (25-35) Mean Corpuscular Hemoglobin Concent 33 g/dL (31-37) Red Cell Distribution Width 15.1 % (11.5-14.5) H Platelet Count 149 x10^3/uL (140-400) Neutrophils (%) (Auto) 65 % (31-73) Lymphocytes (%) (Auto) 25 % (24-48) Monocytes (%) (Auto) 8 % (0-9) Eosinophils (%) (Auto) 2 % (0-3) Basophils (%) (Auto) 0 % (0-3) Neutrophils # (Auto) 4.5 x10^3/uL (1.8-7.7) Lymphocytes # (Auto) 1.7 x10^3/uL (1.0-4.8) Monocytes # (Auto) 0.5 x10^3/uL (0.0-1.1) Eosinophils # (Auto) 0.2 x10^3/uL (0.0-0.7) Basophils # (Auto) 0.0 x10^3/uL (0.0-0.2) Sodium Level 143 mmol/L (136-145) Potassium Level 3.4 mmol/L (3.5-5.1) L Chloride Level 102 mmol/L (98-107) Carbon Dioxide Level 30 mmol/L (21-32) Anion Gap 11 (6-14) Blood Urea Nitrogen 15 mg/dL (7-20) Creatinine 1.1 mg/dL (0.6-1.0) H Estimated GFR (Cockcroft-Gault) 49.4 BUN/Creatinine Ratio 14 (6-20) Glucose Level 126 mg/dL (70-99) H Calcium Level 9.7 mg/dL (8.5-10.1) Total Bilirubin 0.4 mg/dL (0.2-1.0) Aspartate Amino Transferase (AST) 33 U/L (15-37) Alanine Aminotransferase (ALT) 32 U/L (14-59) Alkaline Phosphatase 70 U/L (46-116) Total Protein 8.2 g/dL (6.4-8.2) Albumin 3.7 g/dL (3.4-5.0) Albumin/Globulin Ratio 0.8 (1.0-1.7) L Urine Collection Type Clean catch Urine Color Yellow Urine Clarity Cloudy Urine pH 8.0 Urine Specific [place] 1.010 Urine Protein 100 mg/dL (NEG-TRACE) Urine Glucose (UA) Negative mg/dL (NEG) Urine Ketones (Stick) Negative mg/dL (NEG) Urine Blood Small (NEG) Urine Nitrite Negative (NEG) Urine Bilirubin Negative (NEG) Urine Urobilinogen Dipstick 1.0 mg/dL (0.2 mg/dL) Urine Leukocyte Esterase Large (NEG) Urine RBC 3-5 /HPF (0-2) Urine WBC >40 /HPF (0-4) Urine Squamous Epithelial Cells Many /LPF Urine Bacteria Many /HPF (0-FEW) Urine Mucus Slight /LPF Laboratory Tests 04/21/19 19:30 Laboratory Tests 04/21/19 19:30 EKG EKG EKG interpreted by me. EKG at 1919 showed normal sinus rhythm at rate of 66, Q waves in anteroseptal leads, no acute ST-T wave elevations. Radiology/Procedures Radiology/Procedures [][facility] [address] [place], [place] [id number] IMAGING REPORT Signed PATIENT: BENNY LIPSCOMB ACCOUNT: [id number] : 1950 LOCATION: ER AGE: 68 SEX: F EXAM STATUS: REG ER ORD. PHYSICIAN: NHUNG DARBY MD REASON: facial droop PROCEDURE: CT HEAD WO CONTRAST STUDY: CT head without contrast INDICATION: Facial droop. COMPARISON: 02/19/2019 TECHNIQUE: Axial CT imaging through the head without the use of intravenous contrast. Sagittal and coronal reformats were obtained. One or more of the following individualized dose reduction techniques were utilized for this examination: 1. Automated exposure control 2. Adjustment of the mA and/or kV according to patient size 3. Use of iterative reconstruction technique. FINDINGS: Magdaleno-white matter differentiation is maintained. The deep magdaleno nuclei and insular cortices are able to be delineated. No mass effect, midline shift or hydrocephalus. No acute intracranial hemorrhage. Unchanged configuration of the cerebellar tonsils which extend to the foramen magnum The calvarium is grossly intact. Redemonstrated partial opacification of the right anterior ethmoidal air cells. The sphenoid sinus and visualized maxillary sinuses are normally aerated, as are the mastoid air cells. IMPRESSION: No acute intracranial abnormality by CT. Electronically signed by: GONZÁLEZ TURCIOS MD (04/21/2019 8:15 PM) [facility] [place] and SIGNED BY: GONZÁLEZ TURCIOS MD DATE: 04/21/192014 Course & Med Decision Making Course & Med Decision Making Pertinent Labs and Imaging studies reviewed. (See chart for details) Evaluation of patient in ER showed 68-year-old male patient with complaining of left-sided facial droop for 4 days without other symptoms. Patient had their sparsely with unremarkable CT of head labs except for UTI. Patient didn't take her blood pressure medication today and had blood pressure more than 200 that gradually decreased. She was advised to take her blood pressure medication and follow up with her primary care physician regarding her Ohara's palsy. Prescription for nitrofurantoin was given. Dragon Disclaimer Dragon Disclaimer This electronic medical record was generated, in whole or in part, using a voice recognition dictation system. Departure Departure Impression: Primary Impression: Ohara's palsy Additional Impressions: Hypertensive urgency Recurrent UTI Hypokalemia Morbid obesity Disposition: HOME, SELF-CARE (at 2231) Condition: IMPROVED Referrals: MEI MOCK MD (PCP) Patient Instructions: Ohara's Palsy, Form - Blood Pressure Record Sheet, How to Take Your Blood Pressure, Otll-re-Awld, Managing Your High Blood Pressure, Urinary Tract Infection Additional Instructions: Continue home medication Follow-up with your primary care physician in 1-2 days for possible physical therapy for facial weakness Return to ER if not getting better Scripts Nitrofurantoin Macrocrystal (NITROFURANTOIN) 100 Mg Capsule 1 CAP PO BID, #14 CAP Prov: NHUNG DARBY MD 04/21/19 NIHSS Stroke Scale NIH Stroke Scale: NIH Stroke Scale Response (Comments) Value Level of Consciousness: 0 Alert/Responsive 0 LOC Questions: 0 Answers both correctly 0 LOC Commands: 0 Performs both tasks 0 Best Gaze: 0 Normal 0 Visual: 0 No visual loss 0 Facial Palsy: 3 Complete paralysis 3 Motor - Left Arm 0 No drift 0 Motor - Right Arm 0 No drift 0 Motor - Left Leg 0 No drift 0 Motor: Right Leg 0 No drift 0 Limb Ataxia: 0 Absent 0 Sensory: 0 No loss 0 Best Language: 0 Normal 0 Dysathria: 0 Normal 0 Extinction and Inattention: 0 Normal 0 Total 3 Problem Qualifiers NHUNG DARBY MD Apr 21, 2019 20:07
--- NOTE | 2019-04-21 20:18 | RAD ---
STUDY: CT head without contrast INDICATION: Facial droop. COMPARISON: 02/19/2019 TECHNIQUE: Axial CT imaging through the head without the use of intravenous contrast. Sagittal and coronal reformats were obtained. One or more of the following individualized dose reduction techniques were utilized for this examination: 1. Automated exposure control 2. Adjustment of the mA and/or kV according to patient size 3. Use of iterative reconstruction technique. FINDINGS: Magdaleno-white matter differentiation is maintained. The deep magdaleno nuclei and insular cortices are able to be delineated. No mass effect, midline shift or hydrocephalus. No acute intracranial hemorrhage. Unchanged configuration of the cerebellar tonsils which extend to the foramen magnum The calvarium is grossly intact. Redemonstrated partial opacification of the right anterior ethmoidal air cells. The sphenoid sinus and visualized maxillary sinuses are normally aerated, as are the mastoid air cells. IMPRESSION: No acute intracranial abnormality by CT. Electronically signed by: GONZÁLEZ TURCIOS MD (04/21/2019 8:15 PM) [facility] [place]
[2019-04-21] MEDS ORDERED: HYDROcodone/APAP 5/325MG 1 TAB TABLET PO ONE (20:30)
[2019-04-21] MEDS ORDERED: cloNIDine HCL 0.1 MG TABLET PO ONE (21:00)
[2019-04-21 21:11] LABS: BILIRUBIN,URINE NEGATIVE (NEG); CLARITY,URINE CLOUDY; COLOR,URINE YELLOW; NITRITE,URINE NEGATIVE (NEG); PROTEIN,URINE 100 mg/dL (NEG-TRACE)
[2019-04-21 21:29] LABS: BACTERIA,URINE MANY /HPF (0-FEW); SQUAMOUS EPITHELIAL CELL,UR MANY /LPF; WBC,URINE >40 /HPF (0-4)
[2019-04-21] MEDS ORDERED: NITROFURANTOIN MONOHYD/M-CRYST 100 MG CAPSULE. PO ONE (21:45)
[2019-04-21] MEDS ORDERED: NITR100C PO (22:34)
[2019-04-21 23:00] VITALS: BP 197/84
--- NOTE | 2019-04-22 08:20 | EKG ---
[facility] [address] [place] [address] Test Date: 2019-04-21 Test Time: 19:19:28 Pat Name: BENNY LIPSCOMB Department: Room: Gender: F [employer]: : 1950 Requested By: NHUNG DARBY Order Number: [id number] Reading MD: Ras Loera MD Measurements Intervals [place] Rate: 66 P: MI: QRS: 21 QRSD: 96 T: 79 QT: 458 QTc: 482 Interpretive Statements SR NON-SPECIFIC ST/T CHANGES Electronically Signed On 04-30-2019 14:21:31 CDT by Ras Loera MD
== END 2019-04-21 23:00 | disposition home or self-care (01) ==
LOC: ER 19:14
DX: G51.0 Bell's palsy (principal); I16.0 Hypertensive urgency; N39.0 Urinary tract infection, site not specified; F32.9 Major depressive disorder, single episode, unspecified; E11.9 Type 2 diabetes mellitus without complications; I11.9 Hypertensive heart disease without heart failure; E03.9 Hypothyroidism, unspecified; G47.33 Obstructive sleep apnea (adult) (pediatric); Z86.73 Personal history of transient ischemic attack (TIA), and cerebral infarction without residual deficits; Z87.442 Personal history of urinary calculi; Z90.49 Acquired absence of other specified parts of digestive tract; Z88.1 Allergy status to other antibiotic agents; Z88.5 Allergy status to narcotic agent
CPT/HCPCS: 36415; 70450; 80053; 81001; 82962; 85025; 87086; 93005; 96374; 96376; 99285; J0360; 99283

== ENCOUNTER → 2019-05-13 | Outpatient (CLI) | payer MEDICARE ==
[2019-04-21 23:00] VITALS: BP 197/84
[~2019-05-13] MED LIST changes: +NITR100C PO
--- NOTE | 2019-05-13 14:51 | KCIC ---
CT Abdomen and Pelvis without contrast History: Right flank pain, previous lithotripsy Technique: Noncontrast CT imaging was performed of the abdomen and pelvis. Multiplanar images are reviewed. Exposure: One or more of the following individualized dose reduction techniques were utilized for this examination: 1. Automated exposure control 2. Adjustment of the mA and/or kV according to patient size 3. Use of iterative reconstruction technique. Comparison: November 16, 2018 Findings: Previously seen right ureteral stent has been removed. There is some residual branching calcification of the inferior right kidney, greatest dimension about 1.9 cm CC by 0.9 cm transverse by 1.6 cm AP. There is a small calcification more posteriorly of the inferior right kidney about 0.6 cm. There is a punctate calcification near the midpole of the right kidney about 0.1 cm. There is residual somewhat less dense mid left renal calculus about 1.1 cm, also small 0.1 cm calculus near the midpole of the left kidney more posteriorly. There is no hydronephrosis of either kidney. No ureteral calculus is identified. Accurate evaluation of abdominal visceral organs is limited without intravenous contrast. There is no obvious abnormality of the spleen, liver, or pancreas. There again has been cholecystectomy. There is again left adrenal nodule about 1.7 cm with density measurements of adenoma. Accurate evaluation of bowel is limited without oral contrast. There is no significant free air, free fluid, bowel dilatation. There is diverticulosis greatest of the sigmoid colon not associated with significant inflammatory type change. Normal appendix is visualized. There is some scattered mild calcified plaque of the abdominal aorta. There is degenerative disc disease with vacuum phenomenon at L5-S1, L3-4, L2-3. There is mild lumbar dextroscoliosis. Impression: 1. There are residual bilateral renal calculi as stated. There is no ureteral calculus or hydronephrosis. 2. There is sigmoid diverticulosis. Electronically signed by: Mello Cordova MD (05/13/2019 2:48 PM) [facility]
== END | disposition home or self-care (01) ==
LOC: KCIC CT 11:29
PROVIDERS: ATTEND Nurse Practitioner Family
DX: N20.0 Calculus of kidney (principal); K57.30 Diverticulosis of large intestine without perforation or abscess without bleeding; M51.37 Other intervertebral disc degeneration, lumbosacral region; Z90.49 Acquired absence of other specified parts of digestive tract
CPT/HCPCS: 74176

== ENCOUNTER → 2019-12-19 | Outpatient (CLI) | payer MEDICARE ==
[2019-08-20 11:00] VITALS: BP 135/65
[~2019-12-19] MED LIST changes: -GLIM4TAB4 PO; +GLIM4TAB8 PO; -POTA10TA12 PO; +POTASSIUM CHLO10 ME1 PO; +PREG-9 PO; +TRAZ-123 PO; -TRAZ-86 PO
== END | disposition home or self-care (01) ==
LOC: LAB 15:21
PROVIDERS: ATTEND Ophthalmology
DX: Z11.59 Encounter for screening for other viral diseases (principal)
CPT/HCPCS: 36415; U0003

== ENCOUNTER 2019-12-23 09:22 | Day surgery (SDC) | payer MEDICARE ==
[~2019-12-23 09:22] MED LIST changes: +CHONDROIT-SOD-HYALURONATE KIT. OD ONE; +CIPROFLOXACIN 0.3% OPHTH SOLUTION 5ML BOTTLE. OD ONE; +GENTAMICIN SULFATE/PF 4 MG, EPINEPHrine 0.5 MG in BALANCED SALT IRR SOLN (BAG) 500 ML IO ONE; +IV RINGERS,LACTATED 1000ML 1,000 ML IV SCH; +LIDOCAINE 1% PF 2 ML VIAL. ID PRN; +LIDOCAINE 2% JELLY 6ML IN APPLICATOR. OD ONE; +NEO/POLYMYX/DEXAMETH OPHTH OINTMENT 3.5GM TUBE. OD ONE; +PROCHLORPERAZINE 10 MG/2 ML VIAL. IV PRN; +PROPARACAINE 0.5% OPHTH SOLUTION 15ML BOTTLE. OD ONE; +fentaNYL PF VIAL 100 MCG/2 ML VIAL IV PRN
[2019-12-23] MEDS: PHENYLEPHRINE 10% OPHTH SOLUTION 5ML BOTTLE. OD SCH ×3 (09:37→09:47)
[2019-12-23] MEDS: CYCLOPENTOLATE 1% OPTH SOLUTION 2ML BOTTLE. OD SCH ×3 (09:50→10:00)
--- NOTE | 2019-12-23 09:55 | NUR ---
TO HOLDING. DR PANDYA NOTIFIED OF PT'S ALLERGY TO CIPRO AND CLARIFIED ON CIPRO EYE DROP. ORDERS TO PROCEED WITH CIPRO EYE DROP GIVEN. LIDO JELLY THEN APPLIED AND ROHINI APPLIED WITH SAT MONITOR ON PT.
[2019-12-23] MEDS ORDERED: CHONDROITIN-SOD-HYALURONATE 0.5 ML DISP.SYRIN. OD ONE (10:00)
[2019-12-23] MEDS ORDERED: LIDOCAINE 1%/PHENYLEPH 1.5% PF OPHTH 1 ML VIAL. ONE (10:28)
[2019-12-23] MEDS ORDERED: BALANCED SALT IRRIG OPHTH SOLN 15 ML BOTTLE. IO ONE (10:40)
[2019-12-23] MEDS ORDERED: LIDOCAINE 2% JELLY 6ML IN APPLICATOR. OD ONE (10:40)
--- NOTE | 2019-12-23 11:19 | OP ---
DATE OF SURGERY: 12/23/2019 PREOPERATIVE DIAGNOSES: 1. 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 2. Cataract of the right eye. SURGEON: Tamika Quintero MD ANESTHESIA: Topical with monitored anesthesia care. DESCRIPTION OF PROCEDURE: The right eye was prepped with Betadine in the usual sterile fashion and draped. A paracentesis was performed followed by instillation of preservative-free lidocaine and phenylephrine. A temporal clear corneal incision was made followed by instillation of viscoelastic. The head and microscope were repositioned to visualize the anterior chamber angle and the [place] [employer] [place] [place] dual blade was used to perform a goniotomy in the nasal angle. The head and microscope were repositioned and a capsulorrhexis was performed followed by hydrodissection. The nucleus was removed in a modified stop and chop fashion and the I/A used to remove the remainder of the cortex. Viscoelastic was injected in the capsular bag and an Rodrigo model [id number] with a power of 20.0 diopters was placed into the capsular bag. Balanced salt solution was used to hydrate the corneal wounds and the viscoelastic evacuated with the I/A handpiece. Once no leak was noted, Maxitrol was placed on the eye and the eye shielded and the patient was sent to the recovery room uneventfully. TAMIKA QUINTERO MD DR: MARIXA/nts JOB#: [id number] / [id number]
[2019-12-23 11:25] VITALS: BP 189/81
== END 2019-12-23 11:30 | disposition home or self-care (01) ==
LOC: SURG 09:22
PROVIDERS: ATTEND Ophthalmology
DX: H25.11 Age-related nuclear cataract, right eye (principal); H40.10X1 Unspecified open-angle glaucoma, mild stage; I10 Essential (primary) hypertension; E78.00 Pure hypercholesterolemia, unspecified; G47.30 Sleep apnea, unspecified; G43.909 Migraine, unspecified, not intractable, without status migrainosus; E66.01 Morbid (severe) obesity due to excess calories; Z68.42 Body mass index [BMI] 45.0-49.9, adult; Z86.73 Personal history of transient ischemic attack (TIA), and cerebral infarction without residual deficits; Z90.49 Acquired absence of other specified parts of digestive tract; Z98.890 Other specified postprocedural states; Z87.442 Personal history of urinary calculi
CPT/HCPCS: 65820; 66984; C1780; J0171; J1580; J3490

== ENCOUNTER → 2020-01-06 | Day surgery (SDC) | payer MEDICARE ==
[~2020-01-06] MED LIST changes: +BALANCED SALT IRRIG OPHTH SOLN 15 ML BOTTLE. ONE; -CHONDROIT-SOD-HYALURONATE KIT. OD ONE; +CHONDROIT-SOD-HYALURONATE KIT. ONE; +CHONDROITIN-SOD-HYALURONATE 0.5 ML DISP.SYRIN. ONE; -CIPROFLOXACIN 0.3% OPHTH SOLUTION 5ML BOTTLE. OD ONE; +CIPROFLOXACIN 0.3% OPHTH SOLUTION 5ML BOTTLE. OS ONE; -LIDOCAINE 1% PF 2 ML VIAL. ID PRN; +LIDOCAINE 1%/PHENYLEPH 1.5% PF OPHTH 1 ML VIAL. ONE; -LIDOCAINE 2% JELLY 6ML IN APPLICATOR. OD ONE; +LIDOCAINE 2% JELLY 6ML IN APPLICATOR. ONE; +LIDOCAINE 2% JELLY 6ML IN APPLICATOR. OS ONE; +MIDAZOLAM HCL/PF 2 MG/2 ML VIAL. ONE; -NEO/POLYMYX/DEXAMETH OPHTH OINTMENT 3.5GM TUBE. OD ONE; +NEO/POLYMYX/DEXAMETH OPHTH OINTMENT 3.5GM TUBE. ONE; -PROCHLORPERAZINE 10 MG/2 ML VIAL. IV PRN; -PROPARACAINE 0.5% OPHTH SOLUTION 15ML BOTTLE. OD ONE; +PROPARACAINE 0.5% OPHTH SOLUTION 15ML BOTTLE. OS ONE; -fentaNYL PF VIAL 100 MCG/2 ML VIAL IV PRN
[2020-01-06 08:51] VITALS: BP 191/89
[2020-01-06] MEDS: CYCLOPENTOLATE 1% OPHTH SOLUTION 2ML BOTTLE. OS SCH ×2 (08:56→09:01)
[2020-01-06] MEDS: PHENYLEPHRINE 10% OPHTH SOLUTION 5ML BOTTLE. OS SCH ×2 (08:56→09:01)
--- NOTE | 2020-01-06 10:20 | OP ---
DATE OF SURGERY: PREOPERATIVE DIAGNOSES: 1. Open open-angle glaucoma of the left eye. 2. Cataract of the left eye. PROCEDURE: 1. Goniotomy of the left eye with [place] Dual blade. 2. Cataract extraction with posterior chamber intraocular lens implantation of the left eye. SURGEON: Tamika Quintero MD ANESTHESIA: Topical with monitored anesthesia care. DESCRIPTION OF PROCEDURE: The left eye was prepped with Betadine in the usual sterile fashion and draped. A paracentesis was performed followed by instillation of preservative-free phenylephrine and lidocaine. A temporal clear corneal incision was made followed by instillation of viscoelastic. The head and microscope were repositioned to visualize the anterior chamber, inferonasal angle and the dual blade was used to perform a goniotomy. The head and microscope were repositioned and a capsulorrhexis was performed followed by hydrodissection. The phacoemulsification handpiece was used to remove the nucleus and the I/A handpiece was used to remove the cortex. Viscoelastic was injected into the capsular bag and an [place] model [id number] with a power of 20.5 diopters was placed into the capsular bag. Balanced salt solution was used to hydrate the corneal wounds and the viscoelastic evacuated with the I/A handpiece. Once no leak was noted, Maxitrol was placed on the eye and the eye shielded and the patient was sent to the recovery room uneventfully. TAMIKA QUINTERO MD DR: MARIXA/crys JOB#: [id number] / [id number]
== END ==
LOC: SURG 08:29
PROVIDERS: ATTEND Ophthalmology
DX: H25.12 Age-related nuclear cataract, left eye (principal); H40.1120 Primary open-angle glaucoma, left eye, stage unspecified; G43.909 Migraine, unspecified, not intractable, without status migrainosus; I10 Essential (primary) hypertension; E78.00 Pure hypercholesterolemia, unspecified; G47.30 Sleep apnea, unspecified; K21.9 Gastro-esophageal reflux disease without esophagitis; E11.9 Type 2 diabetes mellitus without complications; E03.9 Hypothyroidism, unspecified; F41.9 Anxiety disorder, unspecified; F32.9 Major depressive disorder, single episode, unspecified; Z90.49 Acquired absence of other specified parts of digestive tract; Z86.73 Personal history of transient ischemic attack (TIA), and cerebral infarction without residual deficits; Z87.39 Personal history of other diseases of the musculoskeletal system and connective tissue; Z90.710 Acquired absence of both cervix and uterus; Z85.42 Personal history of malignant neoplasm of other parts of uterus; Z79.84 Long term (current) use of oral hypoglycemic drugs; Z79.899 Other long term (current) drug therapy
CPT/HCPCS: 65820; 66984; C1780; J0171; J1580; J2250; J3490

== ENCOUNTER → 2020-08-06 | Outpatient (CLI) | payer MEDICARE ==
[2020-05-18 14:45] VITALS: BP 165/74
[~2020-08-06] MED LIST changes: +AMLO-186 PO; +AMLO-187 PO; -AMLO10TA8 PO; -BALANCED SALT IRRIG OPHTH SOLN 15 ML BOTTLE. ONE; -CHONDROIT-SOD-HYALURONATE KIT. ONE; -CHONDROITIN-SOD-HYALURONATE 0.5 ML DISP.SYRIN. ONE; -CIPROFLOXACIN 0.3% OPHTH SOLUTION 5ML BOTTLE. OS ONE; +DOXY-181 PO; -DOXY100C14 PO; -GENTAMICIN SULFATE/PF 4 MG, EPINEPHrine 0.5 MG in BALANCED SALT IRR SOLN (BAG) 500 ML IO ONE; +INSU100V6 SQ; -IV RINGERS,LACTATED 1000ML 1,000 ML IV SCH; -LIDOCAINE 1%/PHENYLEPH 1.5% PF OPHTH 1 ML VIAL. ONE; -LIDOCAINE 2% JELLY 6ML IN APPLICATOR. ONE; -LIDOCAINE 2% JELLY 6ML IN APPLICATOR. OS ONE; -MIDAZOLAM HCL/PF 2 MG/2 ML VIAL. ONE; -NEO/POLYMYX/DEXAMETH OPHTH OINTMENT 3.5GM TUBE. ONE; -OMEP40CA45; -OMEP40CA45 PO; +OMEP40CA7; +OMEP40CA7 PO; -PROPARACAINE 0.5% OPHTH SOLUTION 15ML BOTTLE. OS ONE; +SERT-268 PO; -SERT100T8 PO; +SULF1TAB24 PO; +TELM40TA PO
--- NOTE | 2020-08-06 17:16 | CARD ---
MR#: [id number] Date of Study: 08/06/2020 Ordering Physician: MEI MOCK, Referring Physician: MEI MOCK, Tech: Esha Iraheta RDCS APPROVED REPORT EXAM: Two-dimensional and M-mode echocardiogram with Doppler and color Doppler. Other Information Quality : Technically Limited Technically limited study due to body habitus. INDICATION Hypertension/HCVD Murmur RISK FACTORS Obesity Hyperlipidemia Diabetes 2D DIMENSIONS RVDd2.2 (2.9-3.5cm)Left Atrium(2D)3.9 (1.6-4.0cm) IVSd1.1 (0.7-1.1cm)Aortic Root(2D)3.3 (2.0-3.7cm) LVDd4.8 (3.9-5.9cm)LVOT Diameter2.2 (1.8-2.4cm) PWd1.1 (0.7-1.1cm)LVDs3.6 (2.5-4.0cm) FS (%) 24.9 %SV52.1 ml LVEF(%)49.2 (>50%) Aortic Valve AoV Peak Min.182.5cm/sAoV VTI38.8cm AO Peak GR.13.3mmHgLVOT Peak Min.130.3cm/s LVOT VTI 31.28cmAO Mean GR.8mmHg JULISSA (VMAX)2.49wt2RQJ (VTI)2.95cm2 AI P 1/2 Fbxq636ux Mitral Valve MV E Tgcfvegh79.9cm/sMV DECEL KOTK998if MV A Pereaunv134.5cm/sMV NVO195qu E/A Ratio0.7MVA (PHT)2.02cm2 TDI E/Lateral E'8.5E/Medial E'13.4 Pulmonary Vein S1 Teaywlhi33.3cm/sD2 Qwqktitl41.1cm/s LEFT VENTRICLE The left ventricle is normal size. There is normal left ventricular wall thickness. The left ventricu lar systolic function is normal and the ejection fraction is within normal range. The Ejection Fracti on is 55-60%. There is normal LV segmental wall motion. Transmitral Doppler flow pattern is Grade I-a bnormal relaxation pattern. RIGHT VENTRICLE The right ventricle is normal size. The right ventricular systolic function is normal. ATRIA The left atrium size is normal. The right atrium size is normal. The interatrial septum is intact wit h no evidence for an atrial septal defect or patent foramen ovale as noted on 2-D or Doppler imaging. AORTIC VALVE The aortic valve is calcified but opens well. Doppler and Color Flow revealed trace to mild aortic re gurgitation but difficult to accurately assess due to suboptimal images apically. There is no signifi cant aortic valvular stenosis. MITRAL VALVE Mitral annular calcification is mild. The mitral valve is calcified but opens well. There is no evide nce of mitral valve prolapse. There is no mitral valve stenosis. Doppler and Color-flow revealed trac e to mild mitral regurgitation. TRICUSPID VALVE The tricuspid valve is normal in structure and function. Doppler and Color Flow revealed no tricuspid valve regurgitation noted. There is no tricuspid valve stenosis. PULMONIC VALVE The pulmonic valve is not well visualized. Doppler and Color Flow revealed no pulmonic valvular regur gitation. There is no pulmonic valvular stenosis. GREAT VESSELS The aortic root is normal in size. The ascending aorta is moderately dilated at 4.6 cm. The IVC is no rmal in size and collapses >50% with inspiration. PERICARDIAL EFFUSION There is no evidence of significant pericardial effusion. Critical Notification Critical Value: No <Conclusion> The left ventricular systolic function is normal and the ejection fraction is within normal range. Th e Ejection Fraction is 55-60%. There is normal LV segmental wall motion. The ascending aorta is moderately dilated at 4.6 cm. Signed by : Ras Loera, Electronically Approved : 08/06/2020 17:15:58
== END ==
LOC: ECHO 13:00
PROVIDERS: ATTEND Internal Medicine
DX: I08.0 Rheumatic disorders of both mitral and aortic valves (principal); I71.1 Thoracic aortic aneurysm, ruptured; I10 Essential (primary) hypertension
CPT/HCPCS: 93306